=== PATIENT | male | born 1950 | race Caucasian/White ===

== ENCOUNTER 2021-01-21 18:52 | Inpatient (IN) | payer OTHER ==
--- OUTSIDE RECORDS SUMMARY | 2021-01-21 18:54 | XMS REPORT | Continuity of Care Document ---
:1950 Author Organization [facility] t Address [address] [place] [address] Care Team Providers Name Role Phone Unavailable Unavailable Unavailable Problems This patient has no known problems. Allergies, Adverse Reactions, Alerts This patient has no known allergies or adverse reactions. Medications Ordered Filled Start Stop Current Ordering Indication Dosage Frequency Signature Comments Components Source Medication Medication Date Date Medication? Clinician (SIG) Name Name Bactrim DS Bactrim DS 2019- No Kaylee [address] [facility] 9-17 09-20 [place] [facility] Tamsulosin Tamsulosin 2020- No Kaylee [address] [facility] HCl HCl 8-18 02-13 [place] [facility] Flonase Flonase Yes Kaylee [address] [facility] each [facility] nostril [facility] Metformin Metformin Yes Kaylee TAKE [address] HCl HCl Chen TABLET BY [facility] - MOUTH [facility] TWICE A l DAY WITH [facility] Triamterene Triamterene Yes Kaylee [address] [facility] -HCTZ -HCTZ [place] in the [facility] - morning [facility] Zoloft Zoloft Yes Kaylee 2 [facility] [place] [facility] Trelegy Trelegy Yes Kaylee INHALE [address] [facility] Ellipta Ellipta [place] PUFF BY Leandra kes - MOUTH Memoria EVERY DAY l [facility] PredniSONE PredniSONE Yes Kaylee [address] [facility] Sertraline Sertraline Yes Kaylee TAKE [address] [facility] HCl HCl [place] TABLETS [facility] - ONCE DAILY [facility] Simvastatin Simvastatin Yes Kaylee TAKE [address] [facility] [place] TABLET BY [facility] - MOUTH [facility] EVERY DAY l IN THE [facility] Clinics Elida Marrero Yes Kaylee TAKE [address] [facility] Chen TABLET [facility] - ONCE DAILY [facility] Albuterol Albuterol Yes Kaylee [address] [facility] Sulfate HFA Sulfate HFA Chen needed [facility] Pregabalin Pregabalin Yes Kaylee [address] [facility] Chen 1 to 3 [facility] - hours [facility] before l bedtime in [facility] evening Clinics [place] Yes Kaylee [address] [facility] [place] as needed [facility] Lisinopril Lisinopril Yes Kaylee [address] [facility] Simvastatin Simvastatin Yes Kaylee [address] [facility] Chen in the [facility] - evening [facility] Baclofen Baclofen Yes Kaylee not [facility] [place] defined [facility] Procedures This patient has no known procedures. Encounters Start End Encounter Admission Attending Care Care Encounter Source Date/Time Date/Time Type Type Clinicians Facility Department ID 2020-11-14 2020-11-14 Outpatient [facility] [id number] [facility] 2020-11-14 2020-11-14 Outpatient [facility] [id number] [facility] 2020-08-13 2020-08-13 Outpatient [facility] [id number] [facility] 2020-06-11 2020-06-11 Outpatient [facility] [id number] [facility] 2020-04-23 2020-04-23 Outpatient [facility] [id number] [facility] 2020-04-16 2020-04-16 Outpatient [facility] [id number] [facility] 2020-04-15 2020-04-15 Outpatient [facility] [id number] [facility] 2020-01-17 2020-01-17 Out[facility] [id number] [facility] 2020-01-15 2020-01-15 Out[facility] [id number] [facility] 2019-11-30 2019-11-30 Out[facility] [id number] [facility] 2019-11-16 2019-11-16 Outpatient [facility] [id number] [facility] 2019-10-26 2019-10-26 [facility] [id number] [facility] 10:15:00 10:15:00 t Specialty/U Leandra kes - Specialty rology [facility] a /Urology Clinic l Clinic Outpati ent Clinics 2019-10-18 2019-10-18 [facility] [id number] 11:40:00 11:40:00 [facility] Medicine [facility] Outpati ent Clinics 2019-10-10 2019-10-10 [facility] [id number] [facility] 09:00:00 09:00:00 t Specialty/U Leandra kes - Specialty rology Memori a /Urology Clinic l Clinic Outpati ent Clinics 2019-09-27 2019-09-27 [facility] [id number] [facility] [address] 10:00:00 10:00:00 t Specialty/U Leandra kes - Specialty rology Memori a /Urology Clinic l Clinic Outpati ent Clinics 2019-09-26 2019-09-26 [facility] [id number] [facility] 11:15:00 11:15:00 t Specialty/U Leandra kes - Specialty rology Memori a /Urology Clinic l Clinic Outpati ent Clinics 2019-09-06 2019-09-06 [facility] [id number] [address] 14:14:00 14:14:00 t Specialty/U Leandra kes - Specialty rology Memori a /Urology Clinic l Clinic Outpati ent Clinics 2019-08-09 2019-08-09 [facility] [id number] [address] 10:30:00 10:30:00 t Specialty/U Leandra kes - Specialty rology Memori a /Urology Clinic l Clinic Outpati ent Clinics 2019-08-07 2019-08-07 [facility] [id number] [address] 09:45:00 09:45:00 t Specialty/U Leandra kes - Specialty rology Memori a /Urology Clinic l Clinic Outpati ent Clinics 2019-07-31 2019-07-31 [facility] [id number] [address] 09:29:00 09:29:00 t Specialty/U Leandra kes - Specialty rology Memori a /Urology Clinic l Clinic Outpati ent Clinics 2019-07-27 2019-07-27 [facility] [id number] [facility] 13:45:00 13:45:00 t Specialty/U Leandra kes - Specialty rology Memori a /Urology Clinic l Clinic Outpati ent Clinics 2019-07-24 2019-07-24 [facility] [id number] [address] 08:08:00 08:08:00 t [employer] [facility] Medicine Medicine Outpati ent Clinics 2019-07-18 2019-07-18 [facility] [id number] [facility] 10[facility]30:00 10:30:00 t [employer] [facility] Medicine Medicine Outpati ent Clinics 2019-07-04 2019-07-04 [facility] [id number] [facility] 14:52:00 14:52:00 t [employer] [facility] l Medicine Outpati ent Clinics 2019-04-13 2019-04-13 [facility] [id number] [facility] 09:15:00 09:15:[address] [facility] - [address] [facility] Medicine l Medicine Outpati ent Clinics 2019-04-13 2019-04-13 [facility] [id number] 09:00:00 09:00:00 [place] [employer] s - Drive [facility] Medicine l Medicine Outpati ent Clinics 2019-03-29 2019-03-29 [facility] [id number] 15:50:00 15:50:00 [place] [employer] s - Drive [facility] Medicine l Medicine Outpati ent Clinics 2018-12-27 2018-12-27 [facility] [id number] [address] 16:30:00 16:30:00 [place] [employer] [place] - Drive [facility] Medicine l Medicine Outpati ent Clinics 2018-12-19 2018-12-19 [facility] [id number] [facility] 16:47:00 16:47:00 [place] [employer] [place] - Drive [facility] Medicine l Medicine Outpati ent Clinics 2018-12-19 2018-12-19 [facility] [id number] [facility] 16:04:00 16:04:00 [place] [employer] - [employer] [facility] Medicine l Medicine Outpati ent Clinics 2018-10-05 2018-10-05 [facility] [id number] [facility] 16:53:00 16:53:00 [place] [employer] s - Drive [facility] Medicine l Medicine Outpati ent Clinics 2018-10-03 2018-10-03 [facility] [id number] [facility] 14:09:00 14:09:00 [place] [employer] [place] - Drive [facility] Medicine l Medicine Outpati ent Clinics 2018-08-02 2018-08-02 [facility] [id number] [facility] 10:00:00 10:00:00 [place] [employer] [place] - Drive [facility] Medicine l Medicine Outpati ent Clinics 2018-06-14 2018-06-14 [facility] [id number] [facility] 10:36:00 10:36:00 [place] [employer] - [employer] [facility] Medicine Outpati ent Clinics 2018-04-20 2018-04-20 [facility] [id number] 08:30:00 08:30:00 [place] [employer] s - Drive [facility] Medicine Outpati ent Clinics 2018-01-20 2018-01-20 [facility] [id number] 08:30:00 08:30:00 [place] [employer] - [employer] [facility] Medicine Outpati ent Clinics 2018-01-19 2018-01-19 [facility] [id number] 10:01:00 10:01:00 [place] [employer] - [employer] [facility] Medicine Outpati ent Clinics 2017-11-02 2017-11-02 [facility] [id number] 13:45:00 13:45:00 t [employer] [facility] Medicine Outpati ent Clinics 2017-08-10 2017-08-10 [facility] [id number] 14:45:00 14:45:00 t [employer] [facility] Medicine Outpati ent Clinics 2017-05-28 2017-05-28 [facility] [id number] 10:15:00 10:15:00 t [employer] [facility] Medicine Outpati ent Clinics Results This patient has no known results.
[2021-01-21] MEDS ORDERED: METHYLPREDNISOLONE 125 MG INJ ONE (19:21)
[2021-01-21] MEDS ORDERED: IPRATROPIUM BROM 0.5MG/2.5ML ONE (19:22)
[2021-01-21] MEDS ORDERED: ALBUTEROL 2.5 MG/3 ML NEB SOL ONE (19:22)
--- NOTE | 2021-01-21 19:44 | RAD REPORT ---
EXAM DESCRIPTION: RAD - Chest Single View - 01/21/2021 7:36 pm CLINICAL HISTORY: DYSPNEA Chest pain. COMPARISON: Chest Single View dated 01/26/2017; CHEST SINGLE VIEW dated 06/04/2013; CHEST SINGLE VIEW dated 06/03/2013; CHEST SINGLE VIEW dated 05/14/2013 FINDINGS: Portable technique limits examination quality. Mild interstitial opacities are present bilaterally which may represent interstitial pulmonary edema. Increased medial right lung base markings are noted, cannot exclude early pneumonia in this region. The heart is upper limit normal in size.
[2021-01-21 19:54] LABS: Absolute Lymphocytes (CBC) 1.2 K/uL (0.7-4.9); Basophils % 0.2 % (0-1.3); Hematocrit 38.4 % (39.6-49.0); Lymphocytes % 6.1 % (15.3-44.8); MPV 6.9 fL (7.6-11.3); RBC Red Blood Cell Count 4.34 M/uL (4.33-5.43)
[2021-01-21 20:03] LABS: Protime INR 1.21
[2021-01-21 20:18] LABS: ALT/SGPT 27 U/L (12-78); AST/SGOT 14 U/L (15-37); Albumin 3.5 g/dL (3.4-5.0); Alkaline Phosphatase 77 U/L (45-117); BUN Blood Urea Nitrogen 29 mg/dL (7-18); Bicarbonate 26 mmol/L (21-32); Bilirubin Direct < 0.1 mg/dL (0-0.2); Bilirubin Total 0.4 mg/dL (0.2-1.0); Glucose Level 171 mg/dL (74-106); Magnesium 1.9 mg/dL (1.8-2.4); NT PRO-BNP 428 pg/mL (<125); Potassium 3.7 mmol/L (3.5-5.1); Protein, Total 7.6 g/dL (6.4-8.2); Sodium Level 136 mmol/L (136-145); Troponin (Emerg Dept Use Only) < 0.02 ng/mL (0.0-0.045)
[2021-01-21] MEDS ORDERED: Levofloxacin500mg IV 500 MG/100 ML BAG IV ONE (20:24)
--- NOTE | 2021-01-21 20:59 | ER ---
Nurse's Notes [facility] Name: Jose Marcelino Age: 70 yrs Sex: Male : 1950 Arrival Date: 01/21/2021 Time: 18:55 Bed 3 Private MD: Uri Maldonado Diagnosis: COPD/ Chronic obstructive pulmonary disease with (acute) exacerbation;Pneumonia, unspecified organism Presentation: 01/21 19:01 Chief complaint: Patient states: hx of COPD and has had increased sob over there last 2 [facility] days. no home o2 and no fever. Coronavirus screen: Vaccine status: Patient reports receiving the 2nd dose of the covid vaccine. Ebola Screen: No symptoms or risks identified at this time. Initial Sepsis Screen: Does the patient meet any 2 criteria? No. Patient's initial sepsis screen is negative. Does the patient have a suspected source of infection? No. Patient's initial sepsis screen is negative. Risk Assessment: Do you want to hurt yourself or someone else? Patient reports no desire to harm self or others. Onset of symptoms was January 19, 2021. 19:01 Method Of Arrival: Ambulatory [facility] 19:01 Acuity: PHUC 2 [facility] Triage Assessment: 19:05 General: Appears uncomfortable, Behavior is cooperative. Pain: Denies pain. [facility] Respiratory: Reports shortness of breath cough that is non-productive, air hunger since 2 days labored breathing since 2-4 days Airway is patent Trachea midline Respiratory effort is labored, pursed lip, Respiratory pattern is regular, Onset: The symptoms/episode began/occurred gradually, the patient has moderate shortness of breath. Historical: - Allergies: 19:04 No Known Allergies; 6 - PMHx: 19:04 Chronic obstructive lung disease; Diabetes mellitus; Hypertensive disorder; [facility] - Immunization history:: Client reports receiving the 2nd dose of the Covid vaccine, Flu vaccine is up to date. - Social history:: Smoking status: Patient reports the use of cigarette tobacco products. Screenin:34 Abuse screen: Denies threats or abuse. Nutritional screening: No deficits noted. vg1 Tuberculosis screening: No symptoms or risk factors identified. Fall Risk No fall in past 12 months (0 pts). No secondary diagnosis (0 pts). IV access (20 points). Ambulatory Aid- None/Bed Rest/Nurse Assist (0 pts). Gait- Normal/Bed Rest/Wheelchair (0 pts) Mental Status- Oriented to own ability (0 pts). Total Campa Fall Scale indicates No Risk (0-24 pts). Assessment: 19:33 General: Appears in no apparent distress. uncomfortable, Behavior is calm, cooperative. vg1 Pain: Denies pain. Neuro: Level of Consciousness is awake, alert, obeys commands, Oriented to person, place, time, situation. Cardiovascular: Patient's skin is warm and dry. Respiratory: Airway is patent Respiratory effort is even, labored, Respiratory pattern is regular, symmetrical, Breath sounds with wheezes in left upper lobe and left posterior upper lobe. GI: Reports diarrhea, since yesterday, 01/20/21. : No signs and/or symptoms were reported regarding the genitourinary system. EENT: No signs and/or symptoms were reported regarding the EENT system. Derm: Skin is healthy with good turgor, Skin is pink, warm \T\ dry. Musculoskeletal: Circulation, motion, and sensation intact. 20:47 Reassessment: Patient appears in no apparent distress at this time. No changes from tw5 previously documented assessment. Patient and/or family updated on plan of care and expected duration. Pain level reassessed. Cardiovascular: Rhythm is sinus tachycardia. Vital Signs: 19:01 BP 143 / 55; Pulse 115; Resp 24; Temp 97.5(T); Pulse Ox 90% ; Weight 76.2 kg; Height 5 6 ft. 8 in. (172.72 cm); Pain 2/10; 19:34 BP 120 / 60; Pulse 115; Resp 17; Pulse Ox 100% on Nebulizer Mask; vg1 20:47 BP 141 / 59; Pulse 102; Resp 28; Pulse Ox 90% on R/A; Pain 1/10; tw5 23:15 BP 127 / 60; Pulse 95; Resp 20 S; Pulse Ox 93% on R/A; as6 19:01 Body Mass Index 25.54 (76.20 kg, 172.72 cm) 6 ED Course: 18:55 Patient arrived in ED. am2 18:55 Uri Maldonado DO is Private Physician. am2 19:04 Triage completed. 6 19:06 Arm band placed on right wrist. 6 19:12 Muna Pires is Primary Nurse. tw5 19:16 Emeka Samson MD is Attending Physician. rodney 19:23 [facility]cloud [facility] jr8 19:29 Inserted saline lock: 20 gauge in right wrist, using aseptic technique. Blood collected.tp1 19:34 Patient has correct armband on for positive identification. Placed in gown. Bed in low vg1 position. Call light in reach. Side rails up X 1. Adult w/ patient. 19:34 No provider procedures requiring assistance completed. vg1 19:36 XRAY Chest (1 view) In Process Unspecified. EDMS 20:49 Second set of blood cultures drawn by me. tw5 20:58 Rafael Davey is Hospitalizing Provider. jr8 Administered Medications: 19:25 Drug: Albuterol - atroVENT (ipratropium) (3:1) (2.5 mg - 0.5 mg) 3 ml Route: Nebulizer; vg1 19:27 Drug: SOLU-Medrol (methylPrednisoLONE) 125 mg Route: IVP; Site: right wrist; vg1 20:27 Drug: LevaQUIN (levofloxacin) 500 mg Volume: 100 ml; Route: IVPB; Infused Over: 60 as6 mins; Site: right wrist; 21:29 Follow up: Response: No adverse reaction; IV Status: Completed infusion; IV Intake: as6 100ml Intake: 21:29 IV: 100ml; Total: 100ml. as6 Outcome: 20:59 Decision to Hospitalize by Provider. jr8 01/22 00:08 Patient left the ED. mw2 Signatures: Dispatcher [employer] EDND Emeka Samson MD MD cha Roszak, Josh, PA PA jr8 Alessia Clark am2 Svitlana Baptiste mw2 Rafaela Islas RN RN vg1 Muna Pires tw5 Caden Nieto RN RN as6 Barbra Glaser RN RN 6 Muna Nicholas tp1 Corrections: (The following items were deleted from the chart) 01/21 19:43 19:33 Respiratory: Airway is patent Respiratory effort is even, labored, Respiratory vg1 pattern is regular, symmetrical, vg1
--- NOTE | 2021-01-21 20:59 | EDPHYS ---
Physician Documentation [facility] Name: Jose Marcelino Age: 70 yrs Sex: Male : 1950 Arrival Date: 01/21/2021 Time: 18:55 Bed 3 Private MD: [facility] ED Physician Emeka Samson HPI: 01/21 20:40 This 70 yrs old Male presents to ER via Ambulatory with complaints of Breathing jr8 Difficulty. 20:40 This is a 70-year-old female patient that presented to the emergency room with jr8 increased difficulty breathing. Patient has a history of chronic obstructive lung disease. Patient stated that since he has had increased difficulty with breathing but over the last 3 to 4 days had markedly become worse. 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 Patient normally not on home oxygen. Today patient came in 90% room air with increased work of breathing.. Historical: - Allergies: 19:04 No Known Allergies; [facility] - PMHx: 19:04 Chronic obstructive lung disease; Diabetes mellitus; Hypertensive disorder; [facility] - Immunization history:: Client reports receiving the 2nd dose of the Covid vaccine, Flu vaccine is up to date. - Social history:: Smoking status: Patient reports the use of cigarette tobacco products. ROS: 20:40 Eyes: Negative for injury, pain, redness, and discharge, ENT: Negative for injury, jr8 pain, and discharge, Neck: Negative for injury, pain, and swelling, Cardiovascular: Negative for chest pain, palpitations, and edema, Abdomen/GI: Negative for abdominal pain, nausea, vomiting, diarrhea, and constipation, Back: Negative for injury and pain, MS/Extremity: Negative for injury and deformity, Skin: Negative for injury, rash, and discoloration, Neuro: Negative for headache, weakness, numbness, tingling, and seizure. 20:40 Respiratory: Positive for cough, dyspnea on exertion, shortness of breath, wheezing. Exam: 20:40 Constitutional: This is a well developed, well nourished patient who is awake, alert, jr8 and in no acute distress. Cardiovascular: Regular rate and rhythm with a normal S1 and S2. No gallops, murmurs, or rubs. Normal PMI, no JVD. No pulse deficits. Abdomen/GI: Soft, non-tender, with normal bowel sounds. No distension or tympany. No guarding or rebound. No evidence of tenderness throughout. Back: No spinal tenderness. No costovertebral tenderness. Full range of motion. Skin: Warm, dry with normal turgor. Normal color with no rashes, no lesions, and no evidence of cellulitis. MS/ Extremity: Pulses equal, no cyanosis. Neurovascular intact. Full, normal range of motion. Neuro: Awake and alert, GCS 15, oriented to person, place, time, and situation. Cranial nerves II-XII grossly intact. Motor strength 5/5 in all extremities. Sensory grossly intact. Cerebellar exam normal. Normal gait. 20:40 Respiratory: the patient does not display signs of respiratory distress, Respirations: tachypnea, that is mild, Breath sounds: wheezing: expiratory that is moderate, is heard diffusely. Vital Signs: 19:01 BP 143 / 55; Pulse 115; Resp 24; Temp 97.5(T); Pulse Ox 90% ; Weight 76.2 kg; Height 5 6 ft. 8 in. (172.72 cm); Pain 2/10; 19:34 BP 120 / 60; Pulse 115; Resp 17; Pulse Ox 100% on Nebulizer Mask; vg1 20:47 BP 141 / 59; Pulse 102; Resp 28; Pulse Ox 90% on R/A; Pain 1/10; tw5 23:15 BP 127 / 60; Pulse 95; Resp 20 S; Pulse Ox 93% on R/A; as6 19:01 Body Mass Index 25.54 (76.20 kg, 172.72 cm) [facility] MDM: 19:17 Patient medically screened. [facility] 20:59 Data reviewed: vital signs, nurses notes, lab test result(s), radiologic studies, plain jr8 films. Data interpreted: Pulse oximetry: on room air is 90 %. Interpretation: borderline. Counseling: I had a detailed discussion with the patient and/or guardian regarding: the historical points, exam findings, and any diagnostic results supporting the discharge/admit diagnosis, lab results, radiology results, the need for further work-up and treatment in the hospital. 01/21 19:23 Order name: Basic Metabolic Panel; Complete Time: 20:20 jr8 01/21 19:23 Order name: CBC with Diff jr8 01/21 19:23 Order name: LFT's; Complete Time: 20:20 01/21 19:23 Order name: Magnesium; Complete Time: 20:20 01/21 19:23 Order name: NT PRO-BNP; Complete Time: 20:20 01/21 19:23 Order name: PT-INR; Complete Time: 20:20 01/21 19:23 Order name: Troponin (emerg Dept Use Only); Complete Time: 20:20 01/21 19:23 Order name: XRAY Chest (1 view); Complete Time: 20:20 01/21 19:23 Order name: EKG; Complete Time: 19:24 01/21 20:21 Order name: Blood Culture Adult (2) 01/21 20:59 Order name: COVID-19 SARS RT PCR (Document "Date of Onset" if Symptomatic); Complete Time: 22:18 01/21 19:23 Order name: Cardiac monitoring; Complete Time: 19:53 01/21 19:23 Order name: EKG - Nurse/Tech; Complete Time: 19:53 01/21 19:23 Order name: IV Saline Lock; Complete Time: 19:29 01/21 19:23 Order name: Labs collected and sent; Complete Time: 19:29 01/21 19:23 Order name: O2 Per Protocol; Complete Time: 19:32 01/21 19:23 Order name: O2 Sat Monitoring; Complete Time: 19:32 01/21 21:32 Order name: CONS Physician Consult EDMS Administered Medications: 19:25 Drug: Albuterol - atroVENT (ipratropium) (3:1) (2.5 mg - 0.5 mg) 3 ml Route: Nebulizer; vg1 19:27 Drug: SOLU-Medrol (methylPrednisoLONE) 125 mg Route: IVP; Site: right wrist; vg1 20:27 Drug: LevaQUIN (levofloxacin) 500 mg Volume: 100 ml; Route: IVPB; Infused Over: 60 as6 mins; Site: right wrist; 21:29 Follow up: Response: No adverse reaction; IV Status: Completed infusion; IV Intake: as6 100ml Disposition: 01/22 07:00 Co-signature as Attending Physician, Emeka CABRERA I agree with the assessment and rodney plan of care. Disposition Summary: 01/21/21 20:59 Hospitalization Ordered Hospitalization Status: Inpatient Admission jr8 Provider: Rafael Davey Location: Telemetry/MedSur (Inpatient) jr8 Condition: Stable jr8 Problem: new jr8 Symptoms: have improved jr8 Bed/Room Type: Standard 8 Room Assignment: 430(01/21/21 23:12) cg Diagnosis - COPD/ Chronic obstructive pulmonary disease with (acute) exacerbation jr8 - Pneumonia, unspecified organism jr8 Forms: - Medication Reconciliation Form jr8 - SBAR form jr8 Signatures: Dispatcher [employer] EDMS Emeka Samson MD MD cha Roszak, Josh, PA PA jr8 Hanna Islas RN RN cg Rafaela Islas RN RN vg1 Caden Nieto RN RN as6 Barbra Glaser RN RN jh6 Corrections: (The following items were deleted from the chart) 01/21 23:12 20:59 jr8 cg
--- NOTE | 2021-01-21 22:07 | P.HP ---
Certification for Inpatient Patient admitted to: Inpatient With expected LOS: >2 Midnights Patient will require the following post-hospital care: None Practitioner: I am a practitioner with admitting privileges, knowledge of patient current condition, hospital course, and medical plan of care. Services: Services provided to patient in accordance with Admission requirements found in Title 42 Section 412.3 of the Code of Federal Regulations <Mulugeta Horne - Last Filed: 01/21/21 22:17> Patient History Date of Service: 01/21/21 Reason for admission: sob History of Present Illness: Mr. Marcelino is a 70 yo M with COPD, DM, HTN, HLD, depression who presents with worsening cough, SOB, and DONNELLY. He says his symptoms started around Thanksgiving and have continued to worsen, especially over the past 4 days. He says to day he was too weak to get out of bed. He reports anorexia and diarrhea, denies nausea, vomiting, and fever. He has had mild relief of his symptoms with his inhalers. WBC 19.1 BUN 29 GFR 66 Glu 171 BNP 428 CXR FINDINGS: Portable technique limits examination quality. Mild interstitial opacities are present bilaterally which may represent interstitial pulmonary edema. Increased medial right lung base markings are noted, cannot exclude early pneumonia in this region. The heart is upper limit normal in size. - Past Medical/Surgical History Diabetic: No -: DM -: Asthma -: Arthritis -: COPD -: HTN -: HLD -: depresison -: Cyst removal from right side of neck - Family History Mother -: Diabetes Sister -: Diabetes - Social History Smoking Status: Current every day smoker Alcohol use: No CD- Drugs: No Caffeine use: Yes Place of Residence: Home <Jen Horneelma Schulz - Last Filed: 01/21/21 22:17> Date of Service: 01/21/21 <Kiana Devine - Last Filed: 01/23/21 09:08> Allergies limestone Allergy (Uncoded 01/26/17 16:19) Itching/Hives/Rash Home Medications: Sertraline [Zoloft*] 100 mg PO BID 05/13/13 Simvastatin [Zocor*] 40 mg PO BEDTIME 05/13/13 Hydrocodone/Acetaminophen [[place] 5-325 Tablet] 1 each PO BIDP PRN 01/26/17 Triamterene/Hydrochlorothiazid [Triamterene-Hctz 37.5-25 mg Cp] 1 each PO DAILY 01/26/17 predniSONE [Prednisone*] 40 mg PO BIDP PRN 01/26/17 Albuterol Inhaler [Ventolin Inhaler*] 1 puff IN BID 01/22/21 Fluticasone/Umeclidin/Vilanter [Trelegy Ellipta 100-62.5-25] 1 puff IN DAILY 1 03/25/20 Metformin HCl 1 tab PO DAILY 01/22/21 Tamsulosin [Flomax*] 1 cap PO BEDTIME 01/22/21 Review of Systems 10-point ROS is otherwise unremarkable General: Weakness, Malaise Eyes: Unremarkable ENT: Unremarkable Respiratory: Cough, Shortness of Breath, SOB with Excertion, As per HPI Cardiovascular: Unremarkable Gastrointestinal: Diarrhea Genitourinary: Unremarkable Musculoskeletal: Unremarkable Integumentary: Unremarkable Neurological: Unremarkable Lymphatics: Unremarkable <Mulugeta Horne S - Last Filed: 01/21/21 22:17> Physical Examination - Physical Exam General: Alert, In no apparent distress HEENT: Atraumatic, PERRLA, Mucous membr. moist/pink, EOMI, Sclerae nonicteric Neck: Supple, 2+ carotid pulse no bruit, No LAD, Without JVD or thyroid abnormality Respiratory: Diminished Cardiovascular: Normal S1 S2, Irregular heart rate/rhythm Gastrointestinal: Normal bowel sounds, No tenderness Musculoskeletal: No tenderness Integumentary: No rashes Neurological: Normal speech, Normal strength at 5/5 x4 extr, Normal tone, Normal affect Lymphatics: No axilla or inguinal lymphadenopathy - Studies Laboratory Data (last 24 hrs) 01/21/21 19:26: PT 13.9 H, INR 1.21 01/21/21 19:26: WBC 19.10 H, Hgb 12.8 L, Hct 38.4 L, Plt Count 368 01/21/21 19:26: Sodium 136, Potassium 3.7, BUN 29 H, Creatinine 1.10, Glucose 171 H, Magnesium 1.9, Total Bilirubin 0.4, AST 14 L, ALT 27, Alkaline Phosphatase 77 <Mulugeta Horne S - Last Filed: 01/21/21 22:17> Assessment and Plan - Problems (Diagnosis) (1) Atrial flutter Current Visit: Yes Status: Acute Qualifiers: Atrial flutter type: unspecified Qualified Code(s): I48.92 - Unspecified atrial flutter (2) Pneumonia Current Visit: Yes Status: Acute Qualifiers: Pneumonia type: due to unspecified organism Laterality: unspecified laterality Lung location: unspecified part of lung Qualified Code(s): J18.9 - Pneumonia, unspecified organism (3) T2DM (type 2 diabetes mellitus) Current Visit: Yes Status: Chronic Qualifiers: Diabetes mellitus filler leaf cutter long insulin use: unspecified filler leaf cutter long insulin use status Diabetes mellitus complication status: with kidney complications Diabetes mellitus complication detail: with chronic kidney disease Chronic kidney disease stage: stage 2 (mild) Qualified Code(s): E11.22 - Type 2 diabetes mellitus with diabetic chronic kidney disease; N18.2 - Chronic kidney disease, stage 2 (mild) (4) HTN (hypertension) Current Visit: Yes Status: Chronic Qualifiers: Hypertension type: primary hypertension Qualified Code(s): I10 - Essential (primary) hypertension (5) HLD (hyperlipidemia) Current Visit: Yes Status: Chronic (6) COPD exacerbation Current Visit: No Status: Acute - Plan pulm consulted continue IV steroids, IV antibiotics, breathing treatments and O2 as needed continue antitussives sliding scale insulin and accuchecks cardiology consulted continue anticoagulation, IV lopressor PRN repeat EKG nicotine patch daily reconcile and continue home medications Discharge Plan: Home Plan to discharge in: 72 Hours - Advance Directives Does patient have a Living Will: No Does patient have a Durable POA for Healthcare: No - Code Status/Comfort Care Code Status Assessed: Yes (full code ) Critical Care: No Time Spent Managing Pts Care (In Minutes): 70 <Mulugeta Horne - Last Filed: 01/21/21 22:17> - Problems (Diagnosis) (1) COPD exacerbation Current Visit: No Status: Acute (2) Atrial flutter Current Visit: Yes Status: Acute Qualifiers: Atrial flutter type: unspecified Qualified Code(s): I48.92 - Unspecified atrial flutter (3) Pneumonia Current Visit: Yes Status: Acute Qualifiers: Pneumonia type: due to unspecified organism Laterality: unspecified laterality Lung location: unspecified part of lung Qualified Code(s): J18.9 - Pneumonia, unspecified organism (4) HLD (hyperlipidemia) Current Visit: Yes Status: Chronic (5) HTN (hypertension) Current Visit: Yes Status: Chronic Qualifiers: Hypertension type: primary hypertension Qualified Code(s): I10 - Essential (primary) hypertension (6) T2DM (type 2 diabetes mellitus) Current Visit: Yes Status: Chronic Qualifiers: Diabetes mellitus fpc insulin use: unspecified filler leaf cutter long insulin use status Diabetes mellitus complication status: with kidney complications Diabetes mellitus complication detail: with chronic kidney disease Chronic kidney disease stage: stage 2 (mild) Qualified Code(s): E11.22 - Type 2 diabetes mellitus with diabetic chronic kidney disease; N18.2 - Chronic kidney disease, stage 2 (mild) <Kiana Devine - Last Filed: 01/23/21 09:08> Date of Service: 01/21/21 Subjective Agree with the HPI as mentioned above Review of Systems 10-point ROS is otherwise unremarkable Physical Examination - Vital Signs Reviewed - Physical Exam General: Alert, In no apparent distress, Oriented x3 HEENT: Atraumatic, PERRLA, EOMI Neck: Supple, JVD not distended Respiratory: Diminished, Expiratory wheezes Cardiovascular: Regular rate/rhythm, Normal S1 S2, No murmurs Gastrointestinal: Normal bowel sounds, Soft and benign, Non-distended, No tenderness Musculoskeletal: No clubbing, No swelling, No tenderness Neurological: Normal speech, Normal tone, Normal affect Lymphatics: No axilla or inguinal lymphadenopathy - Studies Medications List Reviewed: Yes Assessment & Plan - Problems (Diagnosis) (1) COPD exacerbation Current Visit: No Status: Acute (2) Atrial flutter Current Visit: Yes Status: Acute Qualifiers: Atrial flutter type: unspecified Qualified Code(s): I48.92 - Unspecified atrial flutter (3) Pneumonia Current Visit: Yes Status: Acute Qualifiers: Pneumonia type: due to unspecified organism Laterality: unspecified laterality Lung location: unspecified part of lung Qualified Code(s): J18.9 - Pneumonia, unspecified organism (4) HLD (hyperlipidemia) Current Visit: Yes Status: Chronic (5) HTN (hypertension) Current Visit: Yes Status: Chronic Qualifiers: Hypertension type: primary hypertension Qualified Code(s): I10 - Essential (primary) hypertension (6) T2DM (type 2 diabetes mellitus) Current Visit: Yes Status: Chronic Qualifiers: Diabetes mellitus filler leaf cutter long insulin use: unspecified filler leaf cutter long insulin use status Diabetes mellitus complication status: with kidney complications Diabetes mellitus complication detail: with chronic kidney disease Chronic kidney disease stage: stage 2 (mild) Qualified Code(s): E11.22 - Type 2 diabetes mellitus with diabetic chronic kidney disease; N18.2 - Chronic kidney disease, stage 2 (mild) - Plan Continue with plan of care as mentioned below: 1. Continue with albuterol and Atrovent nebs 2. Continue with IV steroids 3. Outpatient pulmonary function testing 4. Pulmonary consultation 5. Room air O2 sats 6. Repeat chest x-ray in the morning 7. Echocardiogram 8. GI and DVT prophylaxis Discharge Plan: Home Plan to discharge in: Greater than 2 days - Advance Directives Does patient have a Living Will: No Does patient have a Durable POA for Healthcare: No - Code Status/Comfort Care Code Status Assessed: Yes Code Status: Full Code Critical Care: No Time Spent Managing PTS Care (In Minutes): 35 <Kiana Devine - Last Filed: 01/23/21 09:08>
[2021-01-22 00:12] LABS: Blood Morphology Comment NOT SEEN (NOT SEEN); Platelet Estimate ADEQ
[2021-01-22 00:16] VITALS: BMI 25.9
[2021-01-22] MEDS ORDERED: ACETAMINOPHEN 500 MG TAB PO PRN (00:17)
[2021-01-22] MEDS ORDERED: IPRATROPIUM BROM 0.5MG/2.5ML NEB PRN (00:17)
[2021-01-22] MEDS ORDERED: METOPROLOL TARTRATE 5 MG/5 ML INJ IV PRN (00:17)
[2021-01-22] MEDS ORDERED: BENZONATATE 100 MG CAP PO PRN (00:17)
[2021-01-22] MEDS ORDERED: ONDANSETRON 4 MG/2 ML VIAL IV PRN (00:17)
[2021-01-22] MEDS ORDERED: ALBUTEROL 2.5 MG/3 ML NEB SOL NEB PRN (00:20)
[2021-01-22] MEDS: APIXABAN 5 MG TABLET PO SCH ×3 (00:54→21:11)
[2021-01-22] MEDS: METHYLPREDNISOLONE 40 MG INJ IV SCH ×2 (04:00→08:19)
[2021-01-22 04:09] LABS: Absolute Lymphocytes (CBC) 0.7 K/uL (0.7-4.9); Basophils % 0.3 % (0-1.3); Hematocrit 35.2 % (39.6-49.0); Lymphocytes % 4.8 % (15.3-44.8); MPV 6.7 fL (7.6-11.3); RBC Red Blood Cell Count 3.92 M/uL (4.33-5.43)
[2021-01-22 04:42] LABS: Bilirubin Total 0.2 mg/dL (0.2-1.0); Magnesium 2.2 mg/dL (1.8-2.4); Phosphorus 2.3 mg/dL (2.5-4.9); Potassium 4.8 mmol/L (3.5-5.1); Thyroid Stimulating Hormone 0.224 uIU/mL (0.360-3.740)
[2021-01-22] MEDS: INSULIN -REGULAR HUMAN 50 UNIT/0.5 ML ML SQ SCH ×4 (07:30→21:00)
--- NOTE | 2021-01-22 07:49 | EKG ---
Test Date: 2021-01-21 Test Time: 19:45:59 [employer] Consultant: ISELA MEASUREMENT RESULTS: Intervals: Rate: 107 MI: QRSD: 132 QT: 350 QTc: 467 [place]: P: 81 MI: QRS: 78 T: 68 INTERPRETIVE STATEMENTS: Atrial flutter with 3:1 AV conduction Right bundle branch block Abnormal ECG Compared to ECG 01/26/2017 08:15:41 Right bundle-branch block now present Sinus rhythm no longer present T-wave abnormality no longer present Possible ischemia no longer present Electronically Signed On 01-22-21 07:48:04 SPORTS ANALYST by Parvez Regalado
[2021-01-22] MEDS: POTASS/SODIUM PHOSPHATE 1 PKT POWD.PACK PO SCH ×3 (08:20→10:55)
[2021-01-22] MEDS: NICOTINE 7 MG/PAT TD SCH (09:20)
[2021-01-22] MEDS ORDERED: FUROSEMIDE 20 MG/ 2ML VIAL IV ONE (12:06)
--- NOTE | 2021-01-22 12:07 | P.CNS ---
Date of Consult: 01/22/21 Reason for Consult: COPD exacerbation Chief Complaint: sob History of Present Illness: Patient is 70 years of age admitted with worsening cough dyspnea on exertion for the past 4 days recently advised him to increase prednisone which he did compliant with his bronchodilators he still complaining of dyspnea on mild exertion Allergies [place] Allergy (Uncoded 01/26/17 16:19) Itching/Hives/Rash Home Medications: Sertraline [Zoloft*] 100 mg PO BID 05/13/13 Simvastatin [Zocor*] 40 mg PO BEDTIME 05/13/13 Hydrocodone/Acetaminophen [[place] 5-325 Tablet] 1 each PO BIDP PRN 01/26/17 Triamterene/Hydrochlorothiazid [Triamterene-Hctz 37.5-25 mg Cp] 1 each PO DAILY 01/26/17 predniSONE [Prednisone*] 40 mg PO BIDP PRN 01/26/17 Albuterol Inhaler [Ventolin Inhaler*] 1 puff IN BID 01/22/21 Fluticasone/Umeclidin/Vilanter [Trelegy Ellipta 100-62.5-25] 1 puff IN DAILY 01/22/21 Metformin HCl 1 tab PO DAILY 01/22/21 Tamsulosin [Flomax*] 1 cap PO BEDTIME 01/22/21 - Past Medical/Surgical History Diabetic: No -: DM -: Asthma -: Arthritis -: COPD -: HTN -: HLD -: depresison -: Cyst removal from right side of neck - Family History Mother Medical History: Heart disease, Diabetes Sister Medical History: Diabetes, Cancer Father Medical History: Cancer - Social History Smoking Status: Current every day smoker Alcohol use: No CD- Drugs: No Caffeine use: Yes Place of Residence: Home Review of Systems 10-point ROS is otherwise unremarkable General: Weakness Respiratory: Shortness of Breath Physical Examination Temp Pulse Resp BP Pulse Ox 97.5 F 72 20 132/59 L 96 01/22/21 08:00 01/22/21 08:00 01/22/21 08:00 01/22/21 08:00 01/22/21 08:00 General: Alert, Oriented x3 Neck: Supple Respiratory: Clear to auscultation bilaterally, Diminished Cardiovascular: No edema, Regular rate/rhythm Gastrointestinal: Normal bowel sounds, Soft and benign Laboratory Data (last 24 hrs) 01/21/21 19:26: PT 13.9 H, INR 1.21 01/21/21 19:26: WBC 19.10 H, Hgb 12.8 L, Hct 38.4 L, Plt Count 368 01/21/21 19:26: Sodium 136, Potassium 3.7, BUN 29 H, Creatinine 1.10, Glucose 171 H, Magnesium 1.9, Total Bilirubin 0.4, AST 14 L, ALT 27, Alkaline Phosphatase 77 - Problems (1) COPD exacerbation Current Visit: No Status: Acute Plan: Patient is 70 years of age history of COPD admitted with an exacerbation he is compliant with his therapy at home currently complaining of dyspnea on mild exertion white count is mildly elevated is declining chest x-ray is clear no clinical evidence of pneumonia room air saturation is normal change to p.o. prednisone nebulizer scheduled possible discharge tomorrow 1 dose of Lasix stable underlying diastolic dysfunction
[2021-01-22] MEDS: predniSONE 20 MG TAB PO SCH ×2 (13:16→21:11)
[2021-01-22] MEDS: ALBUTEROL 2.5 MG/3 ML NEB SOL NEB SCH ×2 (13:22→20:00)
[2021-01-22] MEDS: IPRATROPIUM BROM 0.5MG/2.5ML NEB SCH ×2 (13:22→20:00)
--- NOTE | 2021-01-22 13:36 | ECHO ---
HEIGHT: 5 ft 8 in WEIGHT: 171 lb 0 oz DATE OF STUDY: 01/22/[address]: Parvez Regalado MD 2-DIMENSIONAL: YES M.MODE: YES DOPPLER: YES COLOR FLOW: YES TDS: NO PORTABLE: NO DEFINITY: NO BUBBLE STUDY: NO DIAGNOSIS: ATRIAL FIBRILLATION CARDIAC HISTORY: CATHERIZATION: NO SURGERY: NO PROSTHETIC VALVE: NO PACEMAKER: NO MEASUREMENTS (cm) DIASTOLIC (NORMALS) SYSTOLIC (NORMALS) IVSd 1.0 (0.6-1.2) LA Diam 2.4 (1.9-4.0) LVEF 68% LVIDd 4.2 (3.5-5.7) LVIDs 2.6 (2.0-3.5) %FS 37% LVPWd 1.1 (0.6-1.2) Ao Diam 2.8 (2.0-3.7) 2 DIMENSIONAL ASSESSMENT: RIGHT ATRIUM: NORMAL LEFT ATRIUM: NORMAL RIGHT VENTRICLE: NORMAL LEFT VENTRICLE: NORMAL TRICUSPID VALVE: NORMAL MITRAL VALVE: NORMAL PULMONIC VALVE: NORMAL AORTIC VALVE: NORMAL PERICARDIAL EFFUSION: NONE AORTIC ROOT: NORMAL LEFT VENTRICULAR WALL MOTION: NORMAL DOPPLER/COLOR FLOW: NORMAL COMMENTS: NORMAL 2D ECHOCARDIOGRAM WITH DOPPLER. MODERATOR BAND IN RIGHT VENTRICLE. NO EFFUSION. TECHNOLOGIST: Lokesh SRINIVASAN
[2021-01-22] MEDS ORDERED: Levofloxacin 750mg IV 750 MG/150 ML BAG IV SCH (20:00)
[2021-01-22] MEDS ORDERED: HYDROCODONE/APAP 5/325 MG TAB PO PRN (21:27)
[2021-01-23] MEDS: NICOTINE 7 MG/PAT TD SCH ×2 (00:27→09:34)
--- NOTE | 2021-01-23 00:30 | P.PN ---
Subjective Date of Service: 01/22/21 Subjective: No new changes, No C/O voiced, Improving Patient still getting tachypneic on ambulation. Echocardiogram is pending at this time. Patient denies any other complaints. Continue with steroids and neb treatments. Review of Systems 10-point ROS is otherwise unremarkable Physical Examination - Vital Signs Temperature: 97.1 F Blood Pressure: 153/61 Pulse: 89 Respirations: 19 Pulse Ox (%): 92 - Physical Exam General: Alert, In no apparent distress, Oriented x3 HEENT: Atraumatic, PERRLA, EOMI Neck: Supple, JVD not distended Respiratory: Diminished, Expiratory wheezes Cardiovascular: Regular rate/rhythm, Normal S1 S2, No murmurs Gastrointestinal: Normal bowel sounds, Soft and benign, Non-distended, No tenderness Musculoskeletal: No clubbing, No swelling, No tenderness Neurological: Normal speech, Normal tone, Normal affect Lymphatics: No axilla or inguinal lymphadenopathy - Studies Medications List Reviewed: Yes Assessment & Plan - Problems (Diagnosis) (1) COPD exacerbation Current Visit: No Status: Acute (2) Atrial flutter Current Visit: Yes Status: Acute Qualifiers: Atrial flutter type: unspecified Qualified Code(s): I48.92 - Unspecified atrial flutter (3) Pneumonia Current Visit: Yes Status: Acute Qualifiers: Pneumonia type: due to unspecified organism Laterality: unspecified laterality Lung location: unspecified part of lung Qualified Code(s): J18.9 - Pneumonia, unspecified organism (4) HLD (hyperlipidemia) Current Visit: Yes Status: Chronic (5) HTN (hypertension) Current Visit: Yes Status: Chronic Qualifiers: Hypertension type: primary hypertension Qualified Code(s): I10 - Essential (primary) hypertension (6) T2DM (type 2 diabetes mellitus) Current Visit: Yes Status: Chronic Qualifiers: Diabetes mellitus jail insulin use: unspecified terminal worker insulin use status Diabetes mellitus complication status: with kidney complications Diabetes mellitus complication detail: with chronic kidney disease Chronic kidney disease stage: stage 2 (mild) Qualified Code(s): E11.22 - Type 2 diabetes mellitus with diabetic chronic kidney disease; N18.2 - Chronic kidney disease, stage 2 (mild) - Plan Plan: 1. Continue with albuterol and Atrovent nebs 2. Continue with IV steroids 3. Outpatient pulmonary function testing 4. Pulmonary consultation 5. Room air O2 sats 6. Repeat chest x-ray in the morning 7. Echocardiogram 8. GI and DVT prophylaxis Discharge Plan: Home Plan to discharge in: Greater than 2 days - Advance Directives Does patient have a Living Will: No Does patient have a Durable POA for Healthcare: No - Code Status/Comfort Care Code Status Assessed: Yes Code Status: Full Code Critical Care: No Time Spent Managing PTS Care (In Minutes): 35
[2021-01-23] MEDS: IPRATROPIUM BROM 0.5MG/2.5ML NEB SCH ×2 (01:40→08:00)
[2021-01-23] MEDS: ALBUTEROL 2.5 MG/3 ML NEB SOL NEB SCH ×2 (01:40→08:00)
[2021-01-23 04:16] LABS: Absolute Lymphocytes (CBC) 1.3 K/uL (0.7-4.9); Basophils % 0.2 % (0-1.3); Hematocrit 34.9 % (39.6-49.0); Lymphocytes % 7.6 % (15.3-44.8)
[2021-01-23 04:41] LABS: Albumin 2.8 g/dL (3.4-5.0); Bilirubin Total 0.1 mg/dL (0.2-1.0); Protein, Total 6.8 g/dL (6.4-8.2)
[2021-01-23] MEDS: INSULIN -REGULAR HUMAN 50 UNIT/0.5 ML ML SQ SCH ×2 (07:30→11:30)
[2021-01-23] MEDS ORDERED: METFORMIN HCL 500 MG TAB PO SCH (08:00)
[2021-01-23] MEDS ORDERED: HOME MED 1 EA UNK (Fluticasone/Umeclidin/Vilanter [Trelegy Ellipta 100-62.5-25] Blst.W.Dev IH SCH (09:00)
[2021-01-23] MEDS ORDERED: MAXZIDE (HCTZ 25/TRIAMTERENE 37.5MG) TAB PO SCH (09:00)
[2021-01-23] MEDS ORDERED: levoFLOXacin 500 MG TAB PO SCH (09:00)
[2021-01-23] MEDS ORDERED: SERTRALINE HCL 50 MG TAB PO SCH (09:00)
[2021-01-23 09:06] VITALS: TEMP 97.1
[2021-01-23] MEDS: APIXABAN 5 MG TABLET PO SCH (09:34)
[2021-01-23] MEDS: predniSONE 20 MG TAB PO SCH (09:34)
--- NOTE | 2021-01-23 11:13 | P.DS ---
Admission Date: 01/21/21 Discharge Date: 01/23/21 Disposition: ROUTINE DISCHARGE Discharge Condition: FAIR Reason for Admission: sob Brief History of Present Illness: History of Present Illness: Mr. Marcelino is a 70 yo M with COPD, DM, HTN, HLD, depression who presents with worsening cough, SOB, and DONNELLY. He says his symptoms started around Thanksgiving and have continued to worsen, especially over the past 4 days. He says to day he was too weak to get out of bed. He reports anorexia and diarrhea, denies nausea, vomiting, and fever. He has had mild relief of his symptoms with his inhalers. WBC 19.1 BUN 29 GFR 66 Glu 171 BNP 428 CXR FINDINGS: Portable technique limits examination quality. Mild interstitial opacities are present bilaterally which may represent interstitial pulmonary edema. Increased medial right lung base markings are noted, cannot exclude early pneumonia in this region. The heart is upper limit normal in size. Hospital Course: Patient was admitted for presumed pneumonia and COPD exacerbation. Chest x-ray shows no evidence of acute infiltrate. Patient was continued on routine antibiotics as well as IV steroids with significant improvement in his respiratory symptoms. He is satting well and ambulating without any difficulty now. He was evaluated by pulmonary DrCarol And switched to oral steroids. His white cell count was initial elevated at 19 but improved to 15 and stable at 16 K now he will be discharged home today to follow-up with his pulmonary physician in the next 1 week Vital Signs/Physical Exam: Temp Pulse Resp BP Pulse Ox 97.1 F 89 19 153/61 H 92 01/23/21 09:06 01/23/21 09:06 01/23/21 09:06 01/23/21 09:06 01/23/21 09:06 General: Alert, In no apparent distress, Oriented x3 HEENT: Atraumatic, Normocephalic, PERRLA Neck: Supple, 2+ carotid pulse no bruit, JVD not distended Respiratory: Clear to auscultation bilaterally, Normal air movement Cardiovascular: Normal pulses, Regular rate/rhythm, Normal S1 S2 Gastrointestinal: Normal bowel sounds, Non-distended Integumentary: No rashes, No breakdown, No significant lesion Neurological: Normal gait, Normal speech, Normal strength at 5/5 x4 extr, Normal tone Laboratory Data at Discharge: WBC 16.80 K/uL (4.3-10.9) H 01/23/21 03:44 Hgb 11.4 g/dL (13.6-17.9) L 01/23/21 03:44 Hct 34.9 % (39.6-49.0) L 01/23/21 03:44 Plt Count 366 K/uL (152-406) 01/23/21 03:44 PT 13.9 SECONDS (9.5-12.5) H 01/21/21 19:26 INR 1.21 01/21/21 19:26 Sodium 137 mmol/L (136-145) 01/23/21 03:44 Potassium 4.0 mmol/L (3.5-5.1) 01/23/21 03:44 BUN 38 mg/dL (7-18) H 01/23/21 03:44 Creatinine 1.16 mg/dL (0.55-1.3) 01/23/21 03:44 Glucose 178 mg/dL (74-106) H 01/23/21 03:44 Phosphorus 2.3 mg/dL (2.5-4.9) L 01/23/21 03:44 Magnesium 2.2 mg/dL (1.8-2.4) 01/22/21 03:47 Total Bilirubin 0.1 mg/dL (0.2-1.0) L 01/23/21 03:44 AST 16 U/L (15-37) 01/23/21 03:44 ALT 27 U/L (12-78) 01/23/21 03:44 Alkaline Phosphatase 69 U/L (45-117) 01/23/21 03:44 Triglycerides 97 mg/dL (<150) 01/22/21 03:47 Cholesterol 135 mg/dL (<200) 01/22/21 03:47 HDL Cholesterol 59 mg/dL (40-60) 01/22/21 03:47 Cholesterol/HDL Ratio 2.29 01/22/21 03:47 Home Medications: Sertraline [Zoloft*] 100 mg PO BID 05/13/13 Simvastatin [Zocor*] 40 mg PO BEDTIME 05/13/13 Hydrocodone/Acetaminophen [[place] 5-325 Tablet] 1 each PO BIDP PRN 01/26/17 Triamterene/Hydrochlorothiazid [Triamterene-Hctz 37.5-25 mg Cp] 1 each PO DAILY 01/26/17 Albuterol Inhaler [Ventolin Inhaler*] 1 puff IN BID 01/22/21 Fluticasone/Umeclidin/Vilanter [Trelegy Ellipta 100-62.5-25] 1 puff IN DAILY 01/22/21 Metformin HCl 1 tab PO DAILY 01/22/21 Tamsulosin [Flomax*] 1 cap PO BEDTIME 01/22/21 Albuterol Neb [Proventil 0.083% Neb Soln] 2.5 mg NEB [id number] #30 amp 01/23/21 Apixaban [Eliquis] 5 mg PO BID tablet 01/23/21 Benzonatate [Tessalon Perle*] 100 mg PO TID PRN #10 cap 01/23/21 Nebulizer and Compressor [Compressor Nebulizer System] 1 each MC PRN #1 each 01/23/21 levoFLOXacin [Levaquin*] 500 mg PO DAILY #5 tab 01/23/21 New Medications: Nebulizer and Compressor [Compressor Nebulizer System] 1 each MC PRN #1 each levoFLOXacin [Levaquin*] 500 mg PO DAILY #5 tab Albuterol Neb [Proventil 0.083% Neb Soln] 2.5 mg NEB [id number] #30 amp Benzonatate [Tessalon Perle*] 100 mg PO TID PRN #10 cap PRN Reason: Cough Diet: Low sodium Activity: Ad ginna Followup: Uri Maldonado DO [Primary Care Provider] - Time spent managing pt's care (in minutes): 35
[2021-01-23 11:23] VITALS: O2SAT 96
[2021-01-23 12:27] VITALS: BP 158/76
[2021-01-23] MEDS ORDERED: ATORVASTATIN 20 MG TAB PO SCH (21:00)
[2021-01-23] MEDS ORDERED: TAMSULOSIN 0.4 MG SR CAP PO SCH (21:00)
--- NOTE | 2021-01-26 14:09 | CON ---
Date of Consultation: 01/22/2021 Reason For Consultation: Atrial fibrillation. History Of Present Illness: Mr. Marcelino is a 70-year-old male. Has a history of hypertension, COPD, and diabetes. No previous cardiac history. Came in with COPD exacerbation. He takes multiple inha lers. Was in atrial fibrillation for about an hour and converted back to sinus rhythm. When he was in AFib, he had no symptoms. He came in with dyspnea on exertion secondary to COPD. Denied any ches t pain, nausea, vomiting, diaphoresis, PND, orthopnea, pedal edema, palpitations, or syncope. Past Medical History: As stated above. Allergies: HE IS ALLERGIC TO [place]. Review of Systems: Negative. Social History: Negative. Family History: Negative. Medications: At home include inhalers, triamterene with hydrochlorothiazide, metformin, Zoloft, Zoco r, and Flomax. Physical Examination: General: Very pleasant, no acute distress, and honestly, he was in normal sinus rhythm without any c omplaint. Appeared much younger than his stated age. HEENT: Negative. Neck: Supple with no bruit. Chest: Revealed some expiratory wheezing. Cardiac: Normal. Abdomen: Benign. Extremities: Revealed no clubbing, cyanosis, or edema. Diagnostic Data: Showed a white count of 15,000. BNP 428. His TSH was 0.224. Impression And Plan: 1.Paroxysmal atrial fibrillation secondary to hypoxia from chronic obstructive pulmonary disease. 2.Hypertension. 3.Diabetes. Both of those are well controlled. I would obtain a 2D echocardiogram on the surgical part. His echocardiogram is normal. I would probably avoid anticoagulants except for an aspirin. T his was just 1 episode thing. I would continue his inhalers. He is already also on steroid. Contin ue his present home regimen. His heart rate now is in sinus at 60 and put him on a beta-b locker because of that and because of chronic obstructive pulmonary disease. If his echo is normal, he can go home on aspirin and his other medications. We will see him in the office as an outpatient. I can do an event monitor on him then. YENI/RIZWAN Voice ID: [id number] Report ID: [id number]
== END 2021-01-23 13:39 | disposition home or self-care (01) | DRG 191 ==
LOC: ER 18:52 → ERHOLD 21:53 → 4TH 23:40
PROVIDERS: ADMIT Hospitalist; ATTEND Internal Medicine
DX: J44.1 Chronic obstructive pulmonary disease with (acute) exacerbation (principal); I48.92 Unspecified atrial flutter; I12.9 Hypertensive chronic kidney disease with stage 1 through stage 4 chronic kidney disease, or unspecified chronic kidney disease; N18.2 Chronic kidney disease, stage 2 (mild); E11.22 Type 2 diabetes mellitus with diabetic chronic kidney disease; F17.210 Nicotine dependence, cigarettes, uncomplicated; I48.0 Paroxysmal atrial fibrillation; E78.5 Hyperlipidemia, unspecified; J45.909 Unspecified asthma, uncomplicated; Z91.048 Other nonmedicinal substance allergy status; Z79.52 Long term (current) use of systemic steroids; Z79.84 Long term (current) use of oral hypoglycemic drugs; Z79.899 Other long term (current) drug therapy; Z20.822 Contact with and (suspected) exposure to COVID-19; Z79.01 Long term (current) use of anticoagulants
CPT/HCPCS: 36415; 71045; 80048; 80053; 80061; 80076; 82947; 83735; 83880; 84100; 84439; 84443; 84484; 85025; 85610; 87040; 93005; 93306; 94640; 94760; 96365; 96375; 99285; J1940; J2920; J2930; J7512; U0003

== ENCOUNTER 2021-05-27 18:09 | Inpatient (IN) | payer OTHER ==
--- OUTSIDE RECORDS SUMMARY | 2021-05-27 18:12 | XMS REPORT | Continuity of Care Document ---
:1950 Author Organization [facility] t Address [address] [place] [address] Care Team Providers Name Role Phone Lenka Maldonado Attending Clinician Unavailable Problems This patient has no known problems. Allergies, Adverse Reactions, Alerts This patient has no known allergies or adverse reactions. Medications Ordered Filled Start Stop Current Ordering Indication Dosage Frequency Signature Comments Components Source Medication Medication Date Date Medication? Clinician (SIG) Name Name Bactrim DS Bactrim DS 2019- No Kaylee [address] [facility] 9-17 09-20 [place] [facility] Tamsulosin Tamsulosin 2020- No Kaylee [address] [facility] HCl HCl 8-18 -13 [place] [facility] Zoloft Zoloft Yes Kaylee 2 [facility] Trelegy Trelegy Yes Kaylee INHALE [address] [facility] Ellipta Ellipta Chen PUFF BY Leandra kes - MOUTH Memoria EVERY DAY [facility] PredniSONE PredniSONE Yes Kaylee [address] [facility] Sertraline Sertraline Yes Kaylee TAKE [address] [facility] HCl HCl Chen TABLETS [facility] ONCE DAILY [facility] Simvastatin Simvastatin Yes Kaylee TAKE [address] [facility] Chen TABLET BY [facility]TH [facility] Januvia Januvia Yes Kaylee TAKE [address] [facility] [place] TABLET [facility] ONCE DAILY [facility] Albuterol Albuterol Yes Kaylee [address] [facility] Sulfate HFA Sulfate HFA Chen needed [facility] Pregabalin Pregabalin Yes Kaylee [address] [facility] [place] 1 to 3 [facility] - hours [facility] before l [facility] [place] Yes Kaylee [address] [facility] Chen as needed [facility] Lisinopril Lisinopril Yes Kaylee [address] [facility] [place] [facility] Simvastatin Simvastatin Yes Kaylee [address] [facility] Chen in the [facility] evening [facility] Baclofen Baclofen Yes Kaylee not [facility] Chen defined [facility] Flonase Flonase Yes Kaylee [address] [facility] [place] each [facility] nostril [facility] Metformin Metformin Yes Kaylee TAKE [address] HCl HCl Chen TABLET BY [facility]TH [facility] TWICE A l DAY [facility] Triamterene Triamterene Yes Kaylee [address] [facility] -HCTZ -HCTZ [place] in the [facility] - morning [facility] l [facility] ent [facility]ics Procedures This patient has no known procedures. Encounters Start End Encounter Admission Attending Care Care Encounter Source Date/Time Date/Time Type Type Clinicians Facility Department ID 2021-03-05 Outpatient [facility]ly [facility] [place] [id number] [facility] 2021-03-05 Outpatient Maldonado [facility] 12:[facility] [place] [id number] [facility] 2021-03-05 Outpatient [facility] [place] [id number] [facility] 2021-03-05 Outpatient [facility] 11:[facility]:09 [place] [id number] [facility] 2021-03-05 Outpatient [facility] [place] [id number] [facility] 2021-03-05 Outpatient Maldonado, STLMLC STLMLC [id number] [facility] 11:07:31 Uri [id number] [facility] 2021-03-05 Outpatient Maldonado, STLMLC [facility] 11:[facility] [place] [id number] [facility] 2021-02-10 2021-02-10 ambulatory [facility]LMLC [facility] [id number] [facility] 2021 2021 ambulatory [facility]LMLC [facility] [id number] [facility] 2021-01-23 2021-01-23 ambulatory [facility]LMLC [facility] [id number] [facility] 2020-11-14 2020-11-14 Outpatient [facility]LMLC [facility] [id number] [facility] 2020-11-14 2020-11-14 Outpatient STLMLC [facility] [id number] [facility] 2020-08-13 2020-08-13 Outpatient [facility]LMLC [facility] [id number] [facility] 2020-06-11 2020-06-11 Outpatient STLMLC [facility] [id number] [facility] 2020-04-23 2020-04-23 Outpatient STLMLC [facility] [id number] [facility] 2020-04-16 2020-04-16 Outpatient [facility]LMLC [facility] [id number] [facility] 2020-04-15 2020-04-15 [facility] [id number] [facility] 2020-01-17 2020-01-17 Outpatient [facility] [id number] [facility] 2020-01-15 2020-01-15 [facility] [id number] [facility] 2019-11-30 2019-11-30 [facility] [id number] [facility] 2019-11-16 2019-11-16 [facility] [id number] [facility] 2019-10-26 2019-10-26 [facility] [id number] [facility] 10:15:00 10:15:00 t Specialty/U Leandra kes - Specialty rology Memori a /Urology Clinic l Clinic Outpati ent Clinics 2019-10-18 2019-10-18 [facility] [id number] [address] 11:40:00 11:40:00 t [employer] [place] - [employer] [facility] Outpati ent Clinics 2019-10-10 2019-10-10 [facility] [id number] [facility] 09:00:00 09:00:00 t Specialty/U Leandra kes - Specialty rology Memori a /Urology Clinic l Clinic Outpati ent Clinics 2019-09-27 2019-09-27 [facility] [id number] [facility] 10:00:00 10:00:00 t Specialty/U Leandra kes - Specialty rology Memori a /Urology Clinic l Clinic Outpati ent Clinics 2019-09-26 2019-09-26 [facility] [id number] 11:15:00 11:15:00 t Specialty/U Leandra kes - Specialty rology Memori a /Urology Clinic l Clinic Outpati ent Clinics 2019-09-06 2019-09-06 [facility] [id number] [address] 14:14:00 14:14:00 t Specialty/U Leandra kes - Specialty rology Memori a /Urology Clinic l Clinic Outpati ent Clinics 2019-08-09 2019-08-09 [facility] [id number] 10:30:00 10:30:00 t Specialty/U Leandra kes - Specialty rology Memori a /Urology Clinic l Clinic Outpati ent Clinics 2019-08-07 2019-08-07 [facility] [id number] [address] 09:45:00 09:45:00 t Specialty/U Leandra kes - Specialty rology Memori a /Urology Clinic l Clinic Outpati ent Clinics 2019-07-31 2019-07-31 [facility] [id number] [address] 09:29:00 09:29:00 t Specialty/U Leandra kes - Specialty rology Memori a /Urology Clinic l Clinic Outpati ent Clinics 2019-07-27 2019-07-27 [facility] [id number] 13:45:00 13:45:00 t Specialty/U Leandra kes - Specialty rology Memori a /Urology Clinic l Clinic Outpati ent Clinics 2019-07-24 2019-07-24 [facility] [id number] [facility] 08:08:00 08:08:00 [place] [employer] s - Drive [facility] l Medicine Outpati ent Clinics 2019-07-18 2019-07-18 [facility] [id number] 10:30:00 10:30:00 t [employer] s - Drive [facility] l Medicine Outpati ent Clinics 2019-07-04 2019-07-04 [facility] [id number] [address] 14:52:00 14:52:00 t [employer] s - Drive [facility] Medicine l Medicine Outpati ent Clinics 2019-04-13 2019-04-13 [facility] [id number] [facility] 09:15:00 09:15:00 [place] [employer] s - Drive [facility] l Medicine Outpati ent Clinics 2019-04-13 2019-04-13 [facility] [id number] [address] 09:00:00 09:00:[address] Luke s - Drive [facility] Medicine l Medicine Outpati ent Clinics 2019-03-29 2019-03-29 [facility] [id number] 15:50:00 15:50:[address] Luke s - Drive [facility] Medicine l Medicine Outpati ent Clinics 2018-12-27 2018-12-27 [facility] [id number] [facility] 16:30:00 16:30:[address] Luke s - Drive [facility] Medicine l Medicine Outpati ent Clinics 2018-12-19 2018-12-19 [facility] [id number] [facility] 16:47:00 16:47:[address] Luke s - Drive [facility] Medicine Outpati ent Clinics 2018-12-19 2018-12-19 [facility] [id number] [address] 16:04:00 16:04:00 [place] [employer] Luke s - Drive [facility] Medicine Outpati ent Clinics 2018-10-05 2018-10-05 [facility] [id number] [facility] 16:53:00 16:53:00 [place] [employer] Luke s - Drive [facility] Medicine Medicine Outpati ent Clinics 2018-10-03 2018-10-03 [facility] [id number] [address] 14:09:00 14:09:00 [place] [employer] Luke s - Drive [facility] Medicine l Medicine Outpati ent Clinics 2018-08-02 2018-08-02 [facility] [id number] 10:00:00 10:00:[address] Luke s - Drive [facility] Medicine Medicine Outpati ent Clinics 2018-06-14 2018-06-14 [facility] [id number] [facility] 10:36:00 10:36:[address] Luke s - Drive [facility] Medicine Outpati ent Clinics 2018-04-20 2018-04-20 [facility] [id number] [facility] 08:30:00 08:30:00 [place] [employer] s - Drive [facility] l Medicine Outpati ent Clinics 2018-01-20 2018-01-20 [facility] [id number] 08:30:00 08:30:00 t [employer] [facility] Medicine Outpati ent Clinics 2018-01-19 2018-01-19 [facility] [id number] [facility] 10:01:00 10:01:00 t [employer] [facility] Medicine Outpati ent Clinics 2017-11-02 2017-11-02 [facility] [id number] [facility] 13:45:00 13:45:00 t [employer] [facility] Medicine Outpati ent Clinics 2017-08-10 2017-08-10 [facility] [id number] 14:45:00 14:45:00 t [employer] [facility] Medicine Outpati ent Clinics 2017-05-28 2017-05-28 [facility] [id number] 10:15:00 10:15:00 t [employer] [facility] Medicine Outpati ent Clinics Results This patient has no known results.
[2021-05-27] MEDS ORDERED: METHYLPREDNISOLONE 125 MG INJ ONE (18:47)
[2021-05-27] MEDS ORDERED: IPRATROPIUM BROM 0.5MG/2.5ML ONE (18:47)
[2021-05-27] MEDS ORDERED: ASPIRIN 81 MG CHEWABLE TABLET ONE (18:47)
[2021-05-27] MEDS ORDERED: ALBUTEROL 2.5 MG/3 ML NEB SOL ONE (18:47)
[2021-05-27 19:48] LABS: Absolute Lymphocytes (CBC) 1.5 K/uL (0.7-4.9); Hematocrit 36.3 % (39.6-49.0); Lymphocytes % 10.9 % (15.3-44.8); MPV 7.5 fL (7.6-11.3); Protime INR 1.14; RBC Red Blood Cell Count 4.01 M/uL (4.33-5.43)
--- NOTE | 2021-05-27 19:58 | RAD REPORT ---
EXAM DESCRIPTION: RAD - Chest Single View - 05/27/2021 7:28 pm CLINICAL HISTORY: SOB COMPARISON: Portable 01/21/2021 and 01/26/2017 TECHNIQUE: AP portable chest image was obtained 05/27/2021 7:28 pm . FINDINGS: No focal mass or consolidation. Interstitial markings are prominent but not clearly differ ent from the comparison. Heart and vasculature are normal. No measurable pleural effusion and no pneu mothorax. No acute bony abnormality seen. No acute aortic findings suspected. IMPRESSION: No acute cardiopulmonary process. Chronic interstitial pattern matches comparison. Severity of chronic pattern could mask mild edema or infiltrate.
[2021-05-27 20:10] LABS: ALT/SGPT 18 U/L (12-78); AST/SGOT 27 U/L (15-37); Albumin 3.4 g/dL (3.4-5.0); Alkaline Phosphatase 70 U/L (45-117); BUN Blood Urea Nitrogen 38 mg/dL (7-18); Bicarbonate 24 mmol/L (21-32); Bilirubin Total 0.3 mg/dL (0.2-1.0); Glucose Level 106 mg/dL (74-106); Magnesium 1.9 mg/dL (1.8-2.4); NT PRO-BNP 632 pg/mL (<125); Potassium 3.5 mmol/L (3.5-5.1); Protein, Total 7.5 g/dL (6.4-8.2); Sodium Level 130 mmol/L (136-145); Troponin High Sensitivity 18.1 pg/mL (<58.9)
[2021-05-27] MEDS ORDERED: MORPHINE 4 MG/ML SYR ONE (20:12)
[2021-05-27] MEDS ORDERED: ONDANSETRON 4 MG/2 ML VIAL ONE (20:12)
[2021-05-27 20:18] LABS: Bilirubin Direct < 0.1 mg/dL (0-0.2)
[2021-05-27 20:40] LABS: Blood Morphology Comment NOT SEEN (NOT SEEN); Platelet Estimate ADEQ; White Blood Cell Scan OK (OK)
[2021-05-27 20:50] LABS: SARS-COV-2 RT PCR NEGATIVE (NEGATIVE)
--- NOTE | 2021-05-27 21:03 | EDPHYS ---
Physician Documentation [facility] Name: Jose Marcelino Age: 71 yrs Sex: Male : 1950 Arrival Date: 05/27/2021 Time: 18:20 Bed 26 Private MD: ED Physician Kiana Jaffe HPI: 05/27 18:45 This 71 yrs old Male presents to ER via Wheelchair with complaints of Shortness Of cp Breath. 18:45 The patient has shortness of breath at rest. cp 18:45 Onset: The symptoms/episode began/occurred 4 day(s) ago. Duration: The symptoms are cp continuous, and are steadily getting worse. Associated signs and symptoms: Pertinent positives: chest pain, productive cough, Pertinent negatives: fever, vomiting. Severity of symptoms: in the emergency department the symptoms are unchanged despite home interventions. Patient reports family member recently tested positive for influenza. Historical: - Allergies: 18:21 No Known Allergies; iw - PMHx: 18:21 Chronic obstructive lung disease; diabetes mellitus; Hypertensive disorder; iw - Immunization history:: Client reports receiving the 2nd dose of the Covid vaccine. - Social history:: Smoking status: Patient reports the use of cigarette tobacco products, smokes one pack cigarettes per day. ROS: 18:50 Constitutional: Negative for fever, poor PO intake. cp 18:50 Eyes: Negative for injury, pain, redness, and discharge. cp 18:50 Cardiovascular: Positive for chest pain, Negative for edema, palpitations. 18:50 Respiratory: Positive for cough, shortness of breath, at rest. 18:50 Abdomen/GI: Negative for abdominal pain, vomiting, diarrhea, constipation. 18:50 Back: Negative for pain at rest, pain with movement. 18:50 Skin: Negative for rash. 18:50 Neuro: Negative for altered mental status, dizziness, headache, weakness. 18:50 All other systems are negative. Exam: 18:35 ECG was reviewed by the Attending Physician. cp 18:55 Constitutional: The patient appears in no acute distress, alert, awake, cp non-diaphoretic, non-toxic, well developed, well nourished. 18:55 Head/Face: Normocephalic, atraumatic. cp 18:55 Eyes: Periorbital structures: appear normal, Conjunctiva: normal, no exudate, no injection, Sclera: no appreciated abnormality, Lids and lashes: appear normal, bilaterally. 18:55 ENT: External ear(s): are unremarkable, Nose: is normal, Mouth: Lips: moist, Oral mucosa: moist, Posterior pharynx: Airway: no evidence of obstruction, patent. 18:55 Neck: ROM/movement: is normal, is supple, without pain, no range of motions limitations, no meningismus. 18:55 Chest/axilla: Inspection: normal, Palpation: is normal, no crepitus, no tenderness. 18:55 Cardiovascular: Rate: tachycardic, Rhythm: regular, Edema: is not appreciated, JVD: is not appreciated. 18:55 Respiratory: severe repiratory distress is noted, Respirations: labored breathing, cp that is severe, shallow respirations, that is severe, Breath sounds: decreased breath sounds, that are severe, throughout, stridor, is not appreciated, wheezing: that is mild, is heard diffusely. 18:55 Abdomen/GI: Inspection: abdomen appears normal, Bowel sounds: active, all quadrants, Palpation: abdomen is soft and non-tender, in all quadrants. 18:55 Back: pain, is absent, ROM is normal. 18:55 Skin: cellulitis, is not appreciated, no rash present. 18:55 Neuro: Orientation: to person, place \\T\\ time. Mentation: is normal, Motor: moves all fours, strength is normal, Sensation: is normal. 20:57 ECG was reviewed by the Attending Physician. cp Vital Signs: 18:22 BP 124 / 52; Pulse 106; Resp 20 S; Temp 98.8(O); Pulse Ox 91% on R/A; Weight 76.2 kg; iw Height 5 ft. 8 in. (172.72 cm); 18:45 BP 126 / 59; Pulse 108; Resp 20; Pulse Ox 100% on 40% BiPAP; Pain 0/10; ld1 20:37 BP 115 / 60; Pulse 88; Resp 23; Pulse Ox 100% on 40% BiPAP; ld1 21:37 BP 117 / 50; Pulse 83; Resp 21; Pulse Ox 100% on 40% BiPAP; ld1 04/20 01:55 BP 112 / 57; Pulse 73; Resp 22; Pulse Ox 100% on 40% BiPAP; wm 03:46 BP 103 / 46; Pulse 66; Resp 21; Pulse Ox 100% on 40% BiPAP; wm 06:39 BP 130 / 62; Pulse 86; Resp 25; Pulse Ox 99% on 2 lpm NC; wm 05/27 18:22 Body Mass Index 25.54 (76.20 kg, 172.72 cm) iw MDM: 05/27 18:30 Patient medically screened. cp 21:05 Data reviewed: vital signs, nurses notes, lab test result(s), EKG, radiologic studies, cp plain films. 21:05 Test interpretation: by ED physician or midlevel provider: ECG, plain radiologic cp studies. Counseling: I had a detailed discussion with the patient and/or guardian regarding: the historical points, exam findings, and any diagnostic results supporting the discharge/admit diagnosis, lab results, radiology results, the need for further work-up and treatment in the hospital. Physician consultation: Brissa STAPLES was called at 21:00, was contacted at 21:00, regarding admission, to the telemetry unit. patient's condition. 21:05 Data interpreted: monitoring engineer: rhythm is regular, Pulse oximetry: on BIPAP is 99 %. cp Interpretation: acceptable. 05/27 18:30 Order name: COVID-19/FLU A+B (Document "Date of Onset" if Symptomatic); Complete Time: cp 20:59 05/27 18:30 Order name: Basic Metabolic Panel; Complete Time: 20:45 cp 05/27 20:45 Interpretation: Normal except: NA 130; CL 96; BUN 38; GFR 58. cp 05/27 18:30 Order name: CBC with Diff; Complete Time: 20:45 cp 05/27 20:01 Interpretation: Normal except: WBC 14.1; RBC 4.01; HGB 12.0; HCT 36.3; MPV 7.5; MARGARITA% cp 81.7; LYM% 10.9; NEUT A 11.5. 05/27 18:30 Order name: LFT's; Complete Time: 20:45 cp 05/27 18:30 Order name: Magnesium; Complete Time: 20:45 cp 05/27 18:30 Order name: NT PRO-BNP; Complete Time: 20:45 cp 05/27 18:30 Order name: PT-INR; Complete Time: 20:01 cp 05/27 18:30 Order name: Troponin HS; Complete Time: 20:45 cp 05/27 20:46 Interpretation: Reviewed. cp 05/27 18:30 Order name: Procalcitonin; Complete Time: 20:45 cp 05/27 18:30 Order name: Blood Culture Adult (2) cp 05/27 18:30 Order name: Lactate; Complete Time: 20:45 cp 05/27 20:41 Order name: CBC Smear Scan; Complete Time: 20:45 EDMS 05/28 05:33 Order name: CBC with Automated Diff EDMS 05/28 05:43 Order name: Comprehensive Metabolic Panel EDMS 05/27 18:30 Order name: XRAY Chest (1 view); Complete Time: 20:01 cp 05/27 18:30 Order name: EKG; Complete Time: 18:31 cp 05/27 18:30 Order name: Cardiac monitoring; Complete Time: 19:06 cp 05/28 05:43 Order name: Phosphorus EDMS 05/28 05:43 Order name: Magnesium EDMS 05/28 07:42 Order name: RAD EDMS 05/28 08:06 Order name: Glucose, Ancillary Testing EDMS 05/28 11:32 Order name: Glucose, Ancillary Testing EDMS 05/27 18:30 Order name: EKG - Nurse/Tech; Complete Time: 18:55 cp 05/27 18:30 Order name: IV Saline Lock; Complete Time: 19:07 cp 05/27 18:30 Order name: Labs collected and sent; Complete Time: 19:33 cp 05/27 18:30 Order name: O2 Per Protocol; Complete Time: 19:07 cp 05/27 18:30 Order name: O2 Sat Monitoring; Complete Time: 19:07 cp 05/27 19:21 Order name: Labs - recollect needed: green and purple top; Complete Time: 19:32 mw2 EC:35 Rate is 105 beats/min. Rhythm is regular. CT interval is normal. QRS interval is cp prolonged at 132 msec. QT interval is normal. T waves are Inverted in leads V2, V3, V4, V5. Interpreted by me. Reviewed by me. 20:57 Rate is 86 beats/min. Rhythm is regular. CT interval is normal. QRS interval is cp prolonged at 142 msec. QT interval is normal. T waves are Inverted in leads aVR, V2, V3, V4, V5. Interpreted by me. Reviewed by me. Administered Medications: 19:07 Drug: Albuterol - atroVENT (ipratropium) (3:1) (2.5 mg - 0.5 mg) 3 ml Route: Nebulizer; ld1 19:08 Follow up: Response: No adverse reaction ld1 19: Drug: Aspirin Chewable Tablet 324 mg Route: PO; ld1 19:08 Follow up: Response: No adverse reaction ld1 19: Drug: SOLU-Medrol (methylPrednisoLONE) 125 mg Route: IVP; Site: left antecubital; ld1 19: Follow up: Response: No adverse reaction ld1 20: Drug: morphine 4 mg Route: IVP; Site: left antecubital; ld1 21:27 Follow up: Response: No adverse reaction ld1 : Drug: Lovenox (enoxaparin) 1 mg/kg Route: Sub-Q; Site: abdomen; ld1 :27 Drug: Magnesium Sulfate 1 grams Route: IVPB; Infused Over: 1 hrs; Site: left ld1 antecubital; 21:27 Drug: Tamiflu (oseltamivir) 75 mg Route: PO; ld1 22:25 Drug: LevaQUIN (levofloxacin) 750 mg Volume: 150 ml; Route: IVPB; Infused Over: 90 ld1 mins; Site: left antecubital; Disposition Summary: 05/27/21 21:02 Hospitalization Ordered Hospitalization Status: Inpatient Admission cp Provider: Kiana Devine cp Condition: Stable cp Problem: new cp Symptoms: have improved cp Bed/Room Type: Standard cp Location: Telemetry/MedSurg (Inpatient)(05/28/21 09:15) Room Assignment: 401(05/28/21 09:15) bd Diagnosis - COPD/ Chronic obstructive pulmonary disease with acute lower respiratory infection cp - Influenza due to identified novel influenza A virus cp Forms: - Medication Reconciliation Form cp - SBAR form cp Addendum: 05/29/2021 18:36 Co-signature as Attending Physician, Kiana Jaffe MD. m a2 Signatures: Dispatcher [employer] EDMS Lilia Ariza Irene, RN RN iw Page, Corey, PA PA cp Garcia, Cindy, RN RN Kiana Jaffe MD MD ak2 Svitlana Baptiste 2 Janessa Evans, RN RN ld1 Corrections: (The following items were deleted from the chart) 05/27 21: 21:02 Telemetry/MedSurg (Inpatient) cp cg 21:02 cp cg 05/28 09:15 05/27 21:14 [facility] ER HOLD cg bd 05/28 09:15 05/27 21:14 ERHOLD- cg bd
--- NOTE | 2021-05-27 21:03 | ER ---
Nurse's Notes [facility] Name: Jose Marcelino Age: 71 yrs Sex: Male : 1950 Arrival Date: 05/27/2021 Time: 18:20 Bed 26 Private MD: Diagnosis: COPD/ Chronic obstructive pulmonary disease with acute lower respiratory infection;Influenza due to identified novel influenza A virus Presentation: 05/27 18:20 Chief complaint: Patient states: was exposed to flu last week, has had diff breathing iw and body aches since then. Coronavirus screen: Client presents with at least one sign or symptom that may indicate coronavirus-19. Ebola Screen: Patient negative for fever greater than or equal to 101.5 degrees Fahrenheit, and additional compatible Ebola Virus Disease symptoms Patient denies exposure to infectious person. Patient denies travel to an Ebola-affected area in the 21 days before illness onset. No symptoms or risks identified at this time. Risk Assessment: Do you want to hurt yourself or someone else? Patient reports no desire to harm self or others. Onset of symptoms was May 22, 2021. 18:20 Method Of Arrival: Wheelchair iw 18:20 Acuity: PHUC 3 iw 18:22 Initial Sepsis Screen: Does the patient meet any 2 criteria? HR > 90 bpm. Does the iw patient have a suspected source of infection? No. Patient's initial sepsis screen is negative. Historical: - Allergies: 18:21 No Known Allergies; iw - PMHx: 18:21 Chronic obstructive lung disease; diabetes mellitus; Hypertensive disorder; iw - Immunization history:: Client reports receiving the 2nd dose of the Covid vaccine. - Social history:: Smoking status: Patient reports the use of cigarette tobacco products, smokes one pack cigarettes per day. Screenin:45 Abuse screen: Denies threats or abuse. Denies injuries from another. Nutritional ld1 screening: No deficits noted. Tuberculosis screening: No symptoms or risk factors identified. Fall Risk None identified. Assessment: 18:45 General: Appears in no apparent distress. uncomfortable, Behavior is calm, cooperative, ld1 appropriate for age. 18:45 Pain: Denies pain. Neuro: Level of Consciousness is awake, alert, obeys commands, ld1 Oriented to person, place, time, situation. Cardiovascular: Capillary refill < 3 seconds Patient's skin is warm and dry. Cardiovascular: Rhythm is irregular. Respiratory: Airway is patent Respiratory effort is even, labored. Respiratory: Breath sounds are clear bilaterally. Respiratory: Reports shortness of breath at rest on exertion. GI: Abdomen is round non-distended, Reports diarrhea, nausea. : No signs and/or symptoms were reported regarding the genitourinary system. EENT: No signs and/or symptoms were reported regarding the EENT system. Derm: No signs and/or symptoms reported regarding the dermatologic system. Musculoskeletal: No signs and/or symptoms reported regarding the musculoskeletal system. 20:37 Reassessment: Patient appears in no apparent distress at this time. Patient and/or ld1 family updated on plan of care and expected duration. Pain level reassessed. Vital Signs: 18:22 BP 124 / 52; Pulse 106; Resp 20 S; Temp 98.8(O); Pulse Ox 91% on R/A; Weight 76.2 kg; iw Height 5 ft. 8 in. (172.72 cm); 18:45 BP 126 / 59; Pulse 108; Resp 20; Pulse Ox 100% on 40% BiPAP; Pain 0/10; ld1 20:37 BP 115 / 60; Pulse 88; Resp 23; Pulse Ox 100% on 40% BiPAP; ld1 21:37 BP 117 / 50; Pulse 83; Resp 21; Pulse Ox 100% on 40% BiPAP; ld1 05/28 01:55 BP 112 / 57; Pulse 73; Resp 22; Pulse Ox 100% on 40% BiPAP; wm 03:46 BP 103 / 46; Pulse 66; Resp 21; Pulse Ox 100% on 40% BiPAP; wm 06:39 BP 130 / 62; Pulse 86; Resp 25; Pulse Ox 99% on 2 lpm NC; wm 05/27 18:22 Body Mass Index 25.54 (76.20 kg, 172.72 cm) iw ED Course: 05/27 18:20 Patient arrived in ED. iw 18:21 Triage completed. iw 18:21 Arm band placed on. iw 18:25 Emeka eHrnandez PA is PHCP. cp 18:25 Kiana Jaffe MD is Attending Physician. cp 18:39 Janessa Evans, RAMON is Primary Nurse. ld1 18:45 No provider procedures requiring assistance completed. Inserted saline lock: 20 gauge ld1 in left antecubital area, using aseptic technique. 18:55 Patient has correct armband on for positive identification. Placed in gown. Bed in low mh5 position. Call light in reach. Side rails up X2. Adult w/ patient. Warm blanket given. campus monitor on. Pulse ox on. NIBP on. 18:56 Missed attempt(s): 20 gauge in right. mh5 18:56 EKG done, by ED staff, reviewed by Kiana Jaffe MD. 5 19:30 XRAY Chest (1 view) In Process Unspecified. EDMS 19:33 COVID-19/FLU A+B (Document "Date of Onset" if Symptomatic) Sent. ld1 21:01 Kiana Devine MD is Hospitalizing Provider. cp Administered Medications: 19:07 Drug: Albuterol - atroVENT (ipratropium) (3:1) (2.5 mg - 0.5 mg) 3 ml Route: Nebulizer; ld1 19:08 Follow up: Response: No adverse reaction ld1 19:07 Drug: Aspirin Chewable Tablet 324 mg Route: PO; ld1 19:08 Follow up: Response: No adverse reaction ld1 19:07 Drug: SOLU-Medrol (methylPrednisoLONE) 125 mg Route: IVP; Site: left antecubital; ld1 19:09 Follow up: Response: No adverse reaction ld1 20:19 Drug: morphine 4 mg Route: IVP; Site: left antecubital; ld1 21:27 Follow up: Response: No adverse reaction ld1 21:26 Drug: Lovenox (enoxaparin) 1 mg/kg Route: Sub-Q; Site: abdomen; ld1 21:27 Drug: Magnesium Sulfate 1 grams Route: IVPB; Infused Over: 1 hrs; Site: left ld1 antecubital; 21:27 Drug: Tamiflu (oseltamivir) 75 mg Route: PO; ld1 22:25 Drug: LevaQUIN (levofloxacin) 750 mg Volume: 150 ml; Route: IVPB; Infused Over: 90 ld1 mins; Site: left antecubital; Outcome: 21:02 Decision to Hospitalize by Provider. cp 05/28 14:04 Patient left the ED. iw Signatures: Dispatcher [employer] EDMS Buffy Weiss RN RN Emeka Wilde PA PA cp Martinez, Maria 5 Janessa Evans, RN RN ld1 Damrai Flynn
[2021-05-27] MEDS ORDERED: MAGNESIUM SULFATE 1 gm IVPB 1 GM/100 ML BAG IV ONE (21:21)
[2021-05-27] MEDS ORDERED: ENOXAPARIN 80 MG/0.8 ML SQ ONE (21:21)
[2021-05-27] MEDS ORDERED: OSELTAMIVIR 75 MG CAP ONE (21:21)
[2021-05-27] MEDS ORDERED: Levofloxacin 750mg IV 750 MG/150 ML BAG IV ONE (21:22)
--- NOTE | 2021-05-27 22:01 | P.HP ---
Certification for Inpatient Patient admitted to: Inpatient With expected LOS: >2 Midnights Patient will require the following post-hospital care: None Practitioner: I am a practitioner with admitting privileges, knowledge of patient current condition, hospital course, and medical plan of care. Services: Services provided to patient in accordance with Admission requirements found in Title 42 Section 412.3 of the Code of Federal Regulations <Brissa Cole - Last Filed: 05/27/21 23:17> Patient History Date of Service: 05/27/21 Reason for admission: COPD/influenza History of Present Illness: Patient is a 71-year-old male with past medical history of COPD, hypertension, hyperlipidemia, type 2 diabetes who presented to the ED with shortness of breath that has been worsening for the past 5 days. He states that he had a recent exposure to influenza. His shortness of breath has not improved with his at home nebulizers and inhalers. He denies cough or fever. In the ED, labs significant for WBC 14.1, sodium 130, proBNP 632, Pro-Misael 0.1, positive influenza A. Chest x-ray showed chronic interstitial pattern that matches comparison, severity of chronic pattern could mask mild edema or infiltrate. Patient was oxygenating poorly in the ED and started on BiPAP. Initial EKG was worrisome for STEMI however repeat was negative. Patient was given full dose aspirin, DuoNebs, Solu-Medrol, morphine, full dose Lovenox, Tamiflu, mag sulfate, and Levaquin. Upon my assessment, saturation and breathing have improved. Will admit patient for further evaluation and treatment. - Past Medical/Surgical History Diabetic: No -: DM -: Asthma -: Arthritis -: COPD -: HTN -: HLD -: depresison -: Cyst removal from right side of neck - Family History Mother -: Heart disease, Diabetes Sister -: Diabetes, Cancer Father -: Cancer - Social History Smoking Status: Current every day smoker Alcohol use: No CD- Drugs: No Caffeine use: Yes Place of Residence: Home <Sandra Coleia - Last Filed: 05/27/21 23:17> Date of Service: 05/27/21 <Kiana Devine - Last Filed: 05/29/21 07:49> Allergies limestone Allergy (Uncoded 01/26/17 16:19) Itching/Hives/Rash Home Medications: Sertraline [Zoloft*] 100 mg PO BID 05/13/13 Simvastatin [Zocor*] 40 mg PO BEDTIME 05/13/13 Hydrocodone/Acetaminophen [[place] 5-325 Tablet] 1 each PO BIDP PRN 01/26/17 Triamterene/Hydrochlorothiazid [Triamterene-Hctz 37.5-25 mg Cp] 1 each PO DAILY 01/26/17 Albuterol Inhaler [Ventolin Inhaler*] 1 puff IN BID 01/22/21 Fluticasone/Umeclidin/Vilanter [Trelegy Ellipta 100-62.5-25] 1 puff IN DAILY 01/22/21 Metformin HCl 1,000 tab PO BID 01/22/21 Tamsulosin [Flomax*] 1 cap PO BEDTIME 01/22/21 Nebulizer and Compressor [Compressor Nebulizer System] 1 each MC PRN #1 each 01/23/21 Lisinopril [Zestril] 2.5 mg PO DAILY 05/28/21 Pregabalin [Lyrica] 25 mg PO BID 05/28/21 Albuterol Neb [Proventil 0.083% Neb Soln] 2.5 mg NEB [id number] #60 amp 05/29/21 Ipratropium Neb [Atrovent*] 0.5 mg NEB [id number] #60 amp 05/29/21 Oseltamivir Phosphate [Tamiflu] 30 mg PO BID #10 cap 05/29/21 levoFLOXacin [Levaquin*] 750 mg PO BEDTIME #5 tab 05/29/21 predniSONE [Deltasone] 20 mg PO BID #30 tab 05/29/21 Review of Systems General: Malaise, As per HPI Respiratory: Shortness of Breath, SOB with Excertion, As per HPI <Brissa Cole - Last Filed: 05/27/21 23:17> Physical Examination - Physical Exam General: Alert, In no apparent distress, Oriented x3 HEENT: Atraumatic, PERRLA, Mucous membr. moist/pink, EOMI, Sclerae nonicteric Neck: Supple, 2+ carotid pulse no bruit, No LAD, Without JVD or thyroid abnormality Respiratory: Crackles/rales, Expiratory wheezes Cardiovascular: Regular rate/rhythm, Normal S1 S2 Gastrointestinal: Normal bowel sounds, No tenderness Musculoskeletal: No tenderness Integumentary: No rashes Neurological: Normal speech, Normal strength at 5/5 x4 extr, Normal tone, Normal affect - Studies Laboratory Data (last 24 hrs) 05/27/21 19:33: PT 12.6 H, INR 1.14 05/27/21 19:33: WBC 14.1 H, Hgb 12.0 L, Hct 36.3 L, Plt Count 243 05/27/21 19:33: Sodium 130 L, Potassium 3.5, BUN 38 H, Creatinine 1.22, Glucose 106, Magnesium 1.9, Total Bilirubin 0.3, AST 27, ALT 18, Alkaline Phosphatase 70 <Brissa Cole - Last Filed: 05/27/21 23:17> - Studies Microbiology Data (last 24 hrs): 05/27/21 19:25 Blood - Blood Anaerobic Blood Culture - Final <Kiana Devine - Last Filed: 05/29/21 07:49> Assessment and Plan - Problems (Diagnosis) (1) Acute respiratory failure with hypoxia and hypercapnia Current Visit: Yes Status: Acute (2) Atrial flutter Current Visit: No Status: Chronic Qualifiers: Atrial flutter type: unspecified Qualified Code(s): I48.92 - Unspecified atrial flutter (3) COPD exacerbation Current Visit: Yes Status: Acute (4) Influenza A Current Visit: Yes Status: Acute (5) HLD (hyperlipidemia) Current Visit: No Status: Chronic Qualifiers: Hyperlipidemia type: mixed hyperlipidemia Qualified Code(s): E78.2 - Mixed hyperlipidemia (6) HTN (hypertension) Current Visit: Yes Status: Chronic Qualifiers: Hypertension type: primary hypertension Qualified Code(s): I10 - Essential (primary) hypertension (7) T2DM (type 2 diabetes mellitus) Current Visit: Yes Status: Chronic Qualifiers: Diabetes mellitus shelter insulin use: without exterminator helper termite use Diabetes mellitus complication status: with kidney complications Diabetes mellitus complication detail: with chronic kidney disease Chronic kidney disease stage: stage 3 (moderate) Chronic kidney disease stage 3 subtype: stage 3a (GFR 45- 59) Qualified Code(s): E11.22 - Type 2 diabetes mellitus with diabetic chronic kidney disease; N18.31 - Chronic kidney disease, stage 3a - Plan -Continue BiPAP as needed with continuous O2 monitoring -Dr. Caldwell consulted -Breathing treatments every 6 hours as needed -Daily chest x-ray ordered. CT chest if worsening symptoms -Solu-Medrol, Levaquin, and Tamiflu scheduled -ACHS Accu-Cheks with mild sliding scale -Morphine as needed pain, Zofran as needed nausea -Continue home medications as appropriate -Given full dose Lovenox in the ED. We will continue DVT prophylactic dose Discharge Plan: Home Plan to discharge in: Greater than 2 days - Advance Directives Does patient have a Living Will: No Does patient have a Durable POA for Healthcare: No - Code Status/Comfort Care Code Status Assessed: Yes (Full) Critical Care: No Time Spent Managing Pts Care (In Minutes): 50 <Brissa Cole - Last Filed: 05/27/21 23:17> Date of Service: 05/27/21 Subjective: HPI as mentioned above Physical Examination: Vitals: Afebrile vital signs are stable Physical exam: Cardiovascular: Within normal limits. Lungs: Diffuse wheezing Abdomen: Within normal limits Neuro: Awake, alert, oriented to person place and time Assessment: 1. Acute COPD exacerbation Plan: 1. Continue with current plan of care as mentioned above <Kiana Devine - Last Filed: 05/29/21 07:49>
[2021-05-27] MEDS ORDERED: ACETAMINOPHEN 500 MG TAB PO PRN (22:58)
[2021-05-27] MEDS ORDERED: Levofloxacin500mg IV 500 MG/100 ML BAG IV SCH (22:58)
[2021-05-27] MEDS ORDERED: ONDANSETRON 4 MG/2 ML VIAL IV PRN (22:58)
[2021-05-27] MEDS ORDERED: MORPHINE 2 MG/ML SYR IV PRN (22:58)
[2021-05-27 23:06] VITALS: BMI 24.0
[2021-05-28] MEDS: ALBUTEROL 2.5 MG/3 ML NEB SOL NEB SCH ×4 (00:30→20:40)
[2021-05-28] MEDS: IPRATROPIUM BROM 0.5MG/2.5ML NEB SCH ×4 (00:30→20:40)
[2021-05-28] MEDS ORDERED: IPRATROPIUM BROM 0.5MG/2.5ML ONE ×2 (00:32→09:08)
[2021-05-28] MEDS ORDERED: ALBUTEROL 2.5 MG/3 ML NEB SOL ONE ×2 (00:32→09:08)
[2021-05-28] MEDS: METHYLPREDNISOLONE 125 MG INJ IV SCH ×3 (00:42→12:18)
[2021-05-28] MEDS ORDERED: METHYLPREDNISOLONE 125 MG INJ ONE ×3 (00:44→12:21)
[2021-05-28 05:26] LABS: Absolute Lymphocytes (CBC) 0.8 K/uL (0.7-4.9); Hematocrit 33.2 % (39.6-49.0); Lymphocytes % 6.3 % (15.3-44.8); RBC Red Blood Cell Count 3.66 M/uL (4.33-5.43)
[2021-05-28 05:43] LABS: Bilirubin Total 0.2 mg/dL (0.2-1.0); Magnesium 2.3 mg/dL (1.8-2.4); Phosphorus 4.6 mg/dL (2.5-4.9); Potassium 3.8 mmol/L (3.5-5.1); Protein, Total 6.9 g/dL (6.4-8.2)
[2021-05-28] MEDS: INSULIN -REGULAR HUMAN 50 UNIT/0.5 ML ML SQ SCH ×5 (07:30→20:13)
--- NOTE | 2021-05-28 07:41 | RAD REPORT ---
EXAM DESCRIPTION: RAD - Chest Pa And Lat (2 Views) - 05/28/2021 5:26 am CLINICAL HISTORY: COPD COMPARISON: 01/26/2017, 05/27/2021 TECHNIQUE: PA and lateral views of the chest were obtained. FINDINGS: The lungs are clear. Heart size is normal and central vasculature is within normal limits. No pleural effusion or pneumothorax seen. No acute bony finding noted. Emphysema. Calcified pulmonar y nodules noted. IMPRESSION: Emphysema without superimposed acute process identified.
--- NOTE | 2021-05-28 08:07 | EKG ---
Test Date: 2021-05-27 Test Time: 18:33:07 Offender Employment Specialist: SOFÍA MEASUREMENT RESULTS: Intervals: Rate: 105 [place]: 146 QRSD: 132 QT: 328 QTc: 433 [place]: P: 73 [place]: 146 QRS: 86 T: 82 INTERPRETIVE STATEMENTS: Sinus tachycardia with fusion complexes Right bundle branch block ST elevation, consider inferior injury or acute infarct ACUTE MN Consider right ventricular involvement in acute inferior infarct Abnormal ECG Compared to ECG 01/21/2021 19:45:59 Fusion complex(es) now present ST (T wave) deviation now present Myocardial infarct finding now present Myocardial infarct finding now present Atrial flutter no longer present Electronically Signed On 05-28-21 08:06:52 CDT by Parvez Regalado
[2021-05-28] MEDS: ENOXAPARIN 40 MG/0.4 ML SQ SCH (08:56)
[2021-05-28] MEDS ORDERED: ENOXAPARIN 40 MG/0.4 ML SQ ONE (08:57)
[2021-05-28] MEDS ORDERED: OSELTAMIVIR PHOSPHATE 30 MG/5 ML SUSPENSION UD ONE (08:58)
[2021-05-28] MEDS ORDERED: OSELTAMIVIR 75 MG CAP PO SCH (09:00)
[2021-05-28] MEDS: OSELTAMIVIR 30 MG CAP PO SCH ×2 (11:05→20:13)
[2021-05-28] MEDS ORDERED: INSULIN -REGULAR HUMAN 50 UNIT/0.5 ML ML ONE (11:56)
--- NOTE | 2021-05-28 12:35 | P.CNS ---
Date of Consult: 05/28/21 Reason for Consult: COPD exacerbation Chief Complaint: COPD/influenza History of Present Illness: Patient is 71 years of age with a history of COPD recurrent exacerbation metabolic syndrome got flu from his grandchild became worse since last worsening dyspnea short of breath cough doing somewhat better Allergies limestone Allergy (Uncoded 01/26/17 16:19) Itching/Hives/Rash Home Medications: Sertraline [Zoloft*] 100 mg PO BID 05/13/13 Simvastatin [Zocor*] 40 mg PO BEDTIME 05/13/13 Hydrocodone/Acetaminophen [[place] 5-325 Tablet] 1 each PO BIDP PRN 01/26/17 Triamterene/Hydrochlorothiazid [Triamterene-Hctz 37.5-25 mg Cp] 1 each PO DAILY 01/26/17 Albuterol Inhaler [Ventolin Inhaler*] 1 puff IN BID 01/22/21 Fluticasone/Umeclidin/Vilanter [Trelegy Ellipta 100-62.5-25] 1 puff IN DAILY Metformin HCl 1 tab PO DAILY 01/22/21 Tamsulosin [Flomax*] 1 cap PO BEDTIME 01/22/21 Albuterol Neb [Proventil 0.083% Neb Soln] 2.5 mg NEB [id number] #30 amp 01/23/21 Apixaban [Eliquis] 5 mg PO BID tablet 01/23/21 Benzonatate [Tessalon Perle*] 100 mg PO TID PRN #10 cap 01/23/21 Nebulizer and Compressor [Compressor Nebulizer System] 1 each MC PRN #1 each 01/23/21 levoFLOXacin [Levaquin*] 500 mg PO DAILY #5 tab 01/23/21 - Past Medical/Surgical History Diabetic: No -: DM -: Asthma -: Arthritis -: COPD -: HTN -: HLD -: depresison -: Cyst removal from right side of neck - Family History Mother Medical History: Heart disease, Diabetes Sister Medical History: Diabetes, Cancer Father Medical History: Cancer - Social History Smoking Status: Current every day smoker Alcohol use: No CD- Drugs: No Caffeine use: Yes Place of Residence: Home Review of Systems General: Weakness Respiratory: Cough, Shortness of Breath Physical Examination Temp Pulse Resp BP Pulse Ox 98.2 F 70 20 118/49 L 93 05/28/21 12:00 05/28/21 12:00 05/28/21 12:00 05/28/21 12:00 05/28/21 12:00 General: Alert, Oriented x3, Mild distress Respiratory: Expiratory wheezes Cardiovascular: No edema, Regular rate/rhythm Laboratory Data (last 24 hrs) 05/27/21 19:33: PT 12.6 H, INR 1.14 05/27/21 19:33: WBC 14.1 H, Hgb 12.0 L, Hct 36.3 L, Plt Count 243 05/27/21 19:33: Sodium 130 L, Potassium 3.5, BUN 38 H, Creatinine 1.22, Glucose 106, Magnesium 1.9, Total Bilirubin 0.3, AST 27, ALT 18, Alkaline Phosphatase 70 - Problems (1) COPD exacerbation Current Visit: Yes Status: Acute Plan: Patient is 71 years of age admitted with COPD exacerbation chest x-ray shows COPD prominent right hilum mildly anemic worsening renal function vital signs stable oxygenation satisfactory change to p.o. levofloxacin reduce dose of Solu- Medrol continue with bronchodilators check ABGs
[2021-05-28 15:57] LABS: Arterial Blood Carboxyhemoglob 0.9 % (0-1.5); Blood Gas Oxyhemoglobin 88.8 % (94-97); Blood O2 Saturation 90.4 % (92-98.5)
[2021-05-28] MEDS: METHYLPREDNISOLONE 40 MG INJ IV SCH (16:22)
[2021-05-28] MEDS ORDERED: levoFLOXacin 750 MG TAB PO SCH (21:00)
[2021-05-28 22:20] VITALS: O2SAT 97
[2021-05-29] MEDS: METHYLPREDNISOLONE 40 MG INJ IV SCH ×3 (00:39→16:05)
[2021-05-29] MEDS: ALBUTEROL 2.5 MG/3 ML NEB SOL NEB SCH ×3 (02:00→14:12)
[2021-05-29] MEDS: IPRATROPIUM BROM 0.5MG/2.5ML NEB SCH ×3 (02:00→14:12)
[2021-05-29 03:53] LABS: Absolute Lymphocytes (CBC) 1.4 K/uL (0.7-4.9); Hematocrit 33.8 % (39.6-49.0); Lymphocytes % 10.4 % (15.3-44.8); MPV 7.3 fL (7.6-11.3); RBC Red Blood Cell Count 3.72 M/uL (4.33-5.43)
[2021-05-29 04:34] LABS: Bilirubin Total 0.2 mg/dL (0.2-1.0); Potassium 4.1 mmol/L (3.5-5.1); Protein, Total 6.8 g/dL (6.4-8.2)
[2021-05-29] MEDS: INSULIN -REGULAR HUMAN 50 UNIT/0.5 ML ML SQ SCH ×3 (07:20→16:05)
--- NOTE | 2021-05-29 07:45 | P.PN ---
Date of Service: 05/28/21 Subjective Patient is starting to feel a little bit better. Respiratory status has improved. Still with some wheezing and dyspnea on exertion. Physical Examination - Physical Exam General: Alert, In no apparent distress, Oriented x3 HEENT: Atraumatic, PERRLA, Mucous membr. moist/pink, EOMI, Sclerae nonicteric Neck: Supple, 2+ carotid pulse no bruit, No LAD, Without JVD or thyroid abnorm ality Respiratory: Crackles/rales, Expiratory wheezes Cardiovascular: Regular rate/rhythm, Normal S1 S2 Gastrointestinal: Normal bowel sounds, No tenderness Neurological: Normal speech, Normal strength at 5/5 x4 extr, Normal tone, Normal affect Assessment and Plan - Problems (Diagnosis) (1) Acute respiratory failure with hypoxia and hypercapnia Current Visit: Yes Status: Acute (2) Atrial flutter Current Visit: No Status: Chronic Qualifiers: Atrial flutter type: unspecified Qualified Code(s): I48.92 - Unspecified atrial flutter (3) COPD exacerbation Current Visit: Yes Status: Acute (4) Influenza A Current Visit: Yes Status: Acute (5) HLD (hyperlipidemia) Current Visit: No Status: Chronic Qualifiers: Hyperlipidemia type: mixed hyperlipidemia Qualified Code(s): E78.2 - Mixed hyperlipidemia (6) HTN (hypertension) Current Visit: Yes Status: Chronic Qualifiers: Hypertension type: primary hypertension Qualified Code(s): I10 - Essential (primary) hypertension (7) T2DM (type 2 diabetes mellitus) Current Visit: Yes Status: Chronic Qualifiers: Diabetes mellitus buttermaker continuous churn insulin use: without buttermaker continuous churn use Diabetes mellitus complication status: with kidney complications Diabetes mellitus complication detail: with chronic kidney disease Chronic kidney disease stage: stage 3 (moderate) Chronic kidney disease stage 3 subtype: stage 3a (GFR 45- 59) Qualified Code(s): E11.22 - Type 2 diabetes mellitus with diabetic chronic kidney disease; N18.31 - Chronic kidney disease, stage 3a - Plan Plan: 1. Continue with albuterol and Atrovent nebs 2. Continue with IV steroids 3. Outpatient pulmonary function testing 4. Pulmonary consultation appreciated 5. Room air O2 sats 6. Repeat chest x-ray in the morning 7. Peak flows as needed 8. GI and DVT prophylaxis Discharge Plan: Home Plan to discharge in: Greater than 2 days - Advance Directives Does patient have a Living Will: No Does patient have a Durable POA for Healthcare: No - Code Status/Comfort Care Code Status Assessed: Yes (Full) Critical Care: No Time Spent Managing Pts Care (In Minutes): 50
--- NOTE | 2021-05-29 07:52 | P.DS ---
Discharge Date: 05/29/21 Disposition: ROUTINE DISCHARGE Discharge Condition: GOOD Reason for Admission: COPD/influenza Consultations: Pulmonary Brief History of Present Illness: Patient is a 71-year-old male with past medical history of COPD, hypertension, hyperlipidemia, type 2 diabetes who presented to the ED with shortness of breath that has been worsening for the past 5 days. He states that he had a recent exposure to influenza. His shortness of breath has not improved with his at home nebulizers and inhalers. He denies cough or fever. In the ED, labs significant for WBC 14.1, sodium 130, proBNP 632, Pro-Misael 0.1, positive influenza A. Chest x-ray showed chronic interstitial pattern that matches comparison, severity of chronic pattern could mask mild edema or infiltrate. Patient was oxygenating poorly in the ED and started on BiPAP. Initial EKG was worrisome for STEMI however repeat was negative. Patient was given full dose aspirin, DuoNebs, Solu-Medrol, morphine, full dose Lovenox, Tamiflu, mag s ulfate, and Levaquin. Upon my assessment, saturation and breathing have improved. Will admit patient for further evaluation and treatment. Hospital Course: Patient was treated with nebs, steroids, and antibiotics. Patient clinical symptoms are improved. At this time, patient is stable for discharge. Patient will have his room air oxygen saturations monitored. If it is less than 89% we will try to get him set up with home oxygen. He will need outpatient follow-up with pulmonary. At this time, patient is stable for discharge home. Vital Signs/Physical Exam: Temp Pulse Resp BP Pulse Ox 97.2 F 73 19 138/43 L 97 05/29/21 03:59 05/29/21 03:59 05/29/21 03:59 05/29/21 03:59 05/29/21 03:59 General: Alert, In no apparent distress, Oriented x3 Laboratory Data at Discharge: WBC 13.1 K/uL (4.3-10.9) H 05/29/21 03:24 Hgb 11.1 g/dL (13.6-17.9) L 05/29/21 03:24 Hct 33.8 % (39.6-49.0) L 05/29/21 03:24 Plt Count 256 K/uL (152-406) 05/29/21 03:24 PT 12.6 SECONDS (9.5-12.5) H 05/27/21 19:33 INR 1.14 05/27/21 19:33 Sodium 138 mmol/L (136-145) 05/29/21 03:24 Potassium 4.1 mmol/L (3.5-5.1) 05/29/21 03:24 BUN 46 mg/dL (7-18) H 05/29/21 03:24 Creatinine 1.31 mg/dL (0.55-1.3) H 05/29/21 03:24 Glucose 118 mg/dL (74-106) H 05/29/21 03:24 Phosphorus 4.6 mg/dL (2.5-4.9) 05/28/21 05:04 Magnesium 2.3 mg/dL (1.8-2.4) 05/28/21 05:04 Total Bilirubin 0.2 mg/dL (0.2-1.0) 05/29/21 03:24 AST 30 U/L (15-37) 05/29/21 03:24 ALT 21 U/L (12-78) 05/29/21 03:24 Alkaline Phosphatase 59 U/L (45-117) 05/29/21 03:24 Home Medications: Sertraline [Zoloft*] 100 mg PO BID 05/13/13 Simvastatin [Zocor*] 40 mg PO BEDTIME 05/13/13 Hydrocodone/Acetaminophen [[place] 5-325 Tablet] 1 each PO BIDP PRN 01/26/17 Triamterene/Hydrochlorothiazid [Triamterene-Hctz 37.5-25 mg Cp] 1 each PO DAILY 01/26/17 Albuterol Inhaler [Ventolin Inhaler*] 1 puff IN BID 01/22/21 Fluticasone/Umeclidin/Vilanter [Trelegy Ellipta 100-62.5-25] 1 puff IN DAILY 01/22/21 Metformin HCl 1,000 tab PO BID 01/22/21 Tamsulosin [Flomax*] 1 cap PO BEDTIME 01/22/21 Nebulizer and Compressor [Compressor Nebulizer System] 1 each PRN #1 each 01/23/21 Lisinopril [Zestril] 2.5 mg PO DAILY 05/28/21 Pregabalin [Lyrica] 25 mg PO BID 05/28/21 Albuterol Neb [Proventil 0.083% Neb Soln] 2.5 mg NEB [id number] #60 amp 05/29/21 Ipratropium Neb [Atrovent*] 0.5 mg NEB [id number] #60 amp 05/29/21 Oseltamivir Phosphate [Tamiflu] 30 mg PO BID #10 cap 05/29/21 levoFLOXacin [Levaquin*] 750 mg PO BEDTIME #5 tab 05/29/21 predniSONE [Deltasone] 20 mg PO BID #30 tab 05/29/21 New Medications: Ipratropium Neb [Atrovent*] 0.5 mg NEB [id number] #60 amp levoFLOXacin [Levaquin*] 750 mg PO BEDTIME #5 tab predniSONE [Deltasone] 20 mg PO BID #30 tab Albuterol Neb [Proventil 0.083% Neb Soln] 2.5 mg NEB [id number] #60 amp Oseltamivir Phosphate [Tamiflu] 30 mg PO BID #10 cap Physician Discharge Instructions: -DC IV and DC home -Follow-up with PCP in 1 to 2 weeks -Follow-up with Pulmonary in 1 to 2 weeks -Please call Dr. Devine at [phone] if any questions regarding hospital stay -Please call nursing station at [phone] if any nursing or medication questions -Return to the emergency room if symptoms worsen Diet: AHA Activity: Fall precautions Followup: Uri Maldonado DO [Primary Care Provider] - Time spent managing pt's care (in minutes): 35
--- NOTE | 2021-05-29 07:57 | EKG ---
Test Date: 2021-05-27 Test Time: 20:51:51 Bottle Dealer: PATEL MEASUREMENT RESULTS: Intervals: Rate: 86 [place]: 168 QRSD: 142 QT: 366 QTc: 437 [place]: P: 78 VT: 168 QRS: 66 T: 73 INTERPRETIVE STATEMENTS: Sinus rhythm with fusion complexes Right bundle branch block Abnormal ECG Compared to ECG 05/27/2021 18:33:07 Sinus tachycardia no longer present ST (T wave) deviation no longer present Myocardial infarct finding no longer present Myocardial infarct finding no longer present Electronically Signed On 05-29-21 07:55:34 CDT by Parvez Regalado
[2021-05-29] MEDS: ENOXAPARIN 40 MG/0.4 ML SQ SCH (08:38)
[2021-05-29] MEDS: OSELTAMIVIR 30 MG CAP PO SCH (08:38)
[2021-05-29 12:03] VITALS: TEMP 97.9
[2021-05-29 16:01] VITALS: BP 143/65
== END 2021-05-29 16:30 | disposition home or self-care (01) | DRG 189 ==
LOC: ER 18:09 → ERHOLD 21:51 → 4TH 05-28 13:13
PROVIDERS: ADMIT Hospitalist; ATTEND Hospitalist
PROC: 5A09357 Assistance with Respiratory Ventilation, Less than 24 Consecutive Hours, Continuous Positive Airway Pressure (ICD-10-PCS; principal; 2021-05-27)
DX: J96.02 Acute respiratory failure with hypercapnia (principal); J44.1 Chronic obstructive pulmonary disease with (acute) exacerbation; I48.92 Unspecified atrial flutter; J96.01 Acute respiratory failure with hypoxia; I12.9 Hypertensive chronic kidney disease with stage 1 through stage 4 chronic kidney disease, or unspecified chronic kidney disease; E11.22 Type 2 diabetes mellitus with diabetic chronic kidney disease; N18.31 Chronic kidney disease, stage 3a; E78.2 Mixed hyperlipidemia; J10.1 Influenza due to other identified influenza virus with other respiratory manifestations; F17.210 Nicotine dependence, cigarettes, uncomplicated; Z20.822 Contact with and (suspected) exposure to COVID-19
CPT/HCPCS: 0240U; 36415; 71045; 71046; 80048; 80053; 80076; 82805; 82947; 83605; 83735; 83880; 84100; 84145; 84484; 85025; 85610; 87040; 87205; 93005; 94640; 94660; 94760; 96372; 96374; 96375; 99285; J1650; J1815; J2405; J2920; J2930; J3475

== ENCOUNTER 2021-10-21 20:57 | Inpatient (IN) | payer OTHER ==
--- OUTSIDE RECORDS SUMMARY | 2021-10-21 21:00 | XMS REPORT | Continuity of Care Document ---
:1950 Author Organization [facility] t Address [address] [place] [address] Care Team Providers Name Role Phone Uri Maldonado Attending Clinician Unavailable Problems This patient has no known problems. Allergies, Adverse Reactions, Alerts This patient has no known allergies or adverse reactions. Medications Ordered Filled Start Stop Current Ordering Indication Dosage Frequency Signature Comments Components Source Medication Medication Date Date Medication? Clinician (SIG) Name Name Bactrim DS Bactrim DS 2019- No Kaylee 1 tablet Common 10-[address] [facility] 00:00: [facility] 00 :00 [facility] Tamsulosin Tamsulosin 2020- No Kaylee 1 capsule Common HCl HCl 09-[facility] 00:00: [facility] 00 :00 [facility] Flonase Flonase Yes Kaylee 1 spray in Co mmon Chen each Spirit nostril - [facility] Metformin Metformin Yes Kaylee TAKE [address] HCl HCl [address] [facility] TABLET BY Spirit MOUTH - [facility] TWICE A St DAY WITH [facility] Triamterene Triamterene Yes Kaylee 1 tablet Common -HCTZ -HCTZ [facility] in the [facility] morning - [facility] Zoloft Zoloft Yes Kaylee 2 tablets Commo n Chen [facility] Trelegy Trelegy Yes Kaylee INHALE [address] [facility] PUFF BY Sp eliza MOUTH - [facility] EVERY DAY [facility] PredniSONE PredniSONE Yes Kaylee 1 tablet Common Chen [facility] Sertraline Sertraline Yes Kaylee TAKE 2 Common HCl HCl Chen TABLETS [facility] ONCE DAILY [facility] Simvastatin Simvastatin Yes Kaylee TAKE 1 Common Chen TABLET BY Spirit MOUTH - [facility]I EVERY DAY St IN THE [facility] Jandiogo Marrero Yes Kaylee TAKE [address] [facility] TABLET [facility] ONCE DAILY [facility] Albuterol Albuterol Yes Kaylee 2 puffs as Common Sulfate HFA Sulfate HFA Chen needed [facility] Pregabalin Pregabalin Yes Kaylee 1 capsule Common Chen 1 to 3 Spirit hours - [facility]I before St bedtime in [facility] [place] Yes Kaylee 1 tablet Common Chen as needed [facility] Lisinopril Lisinopril Yes Kaylee 1 tablet Common Chen [facility] Simvastatin Simvastatin Yes Kaylee 1 tablet Common Chen in the [facility] evening - [facility] Baclofen Baclofen Yes Kaylee not Common Chen defined [facility] Procedures This patient has no known procedures. Encounters Start End Encounter Admission Attending Care Care Encounter Source Date/Time Date/Time Type Type Clinicians Facility Department ID 2021-03-05 Out[facility] Maldonado, [facility] [id number] Common 12:35:45 Uri [id number] [facility] 2021-03-05 Out[facility] Maldonado, [facility] [id number] Common 12:12:17 Uri [id number] [facility] 2021-03-05 Outpatient Maldonado, [facility] [id number] Common 11:46:55 Uri [id number] [facility] 2021-03-05 [facility] [id number] Common 11:25:09 Uri [id number] [facility] 2021-03-05 Outpatient Maldonado, [facility] [id number] Common 11:16:20 Uri [id number] [facility] 2021-03-05 Outpatient Maldonado, [facility] [id number] Common 11:07:31 Uri [id number] [facility] 2021-03-05 Outpatient Maldonado, [facility] [id number] Common 11:02:46 [facility] [id number] [facility] 2021-09-04 2021-09-04 ambulatory [facility] [id number] Common 00:00:00 00:00:00 [facility] 2021-09-04 2021-09-04 ambulatory [facility] [id number] Common 00:00:00 00:00:00 [facility] 2021-09-04 2021-09-04 ambulatory [facility] [id number] Common 00:00:00 00:00:00 [facility] 2021-07-31 2021-07-31 ambulatory [facility] [id number] Common 00:00:00 00:00:00 [facility] 2021-05-27 2021-05-27 ambulatory [facility] [id number] Common 00:00:00 00:00:00 [facility] 2021-05-27 2021-05-27 ambulatory [facility] [id number] Common 00:00:00 00:00:00 [facility] 2021-02-10 2021-02-10 ambulatory [facility] [id number] Common 00:00:00 00:00:00 [facility] 2021 2021 ambulatory [facility] [id number] Common 00:00:00 00:00:00 [facility] 2021-01-23 2021-01-23 ambulatory [facility] [id number] Common 00:00:00 00:00:00 [facility] 2020-11-14 2020-11-14 Outpatient [facility] [id number] Common 00:00:00 00:00:00 [facility] 2020-11-14 2020-11-14 Outpatient [facility] [id number] Common 00:00:00 00:00:00 [facility] 2020-08-13 2020-08-13 Outpatient [facility] [id number] Common 00:00:00 00:00:00 [facility] 2020-06-11 2020-06-11 Outpatient [facility] [id number] Common 00:00:00 00:00:00 [facility] 2020-04-23 2020-04-23 Outpatient [facility] [id number] Common 00:00:00 00:00:00 [facility] 2020-04-16 2020-04-16 Outpatient [facility] [id number] Common 00:00:00 00:00:00 [facility] 2020-04-15 2020-04-15 Outpatient [facility] [id number] Common 00:00:00 00:00:00 [facility] 2020-01-17 2020-01-17 Outpatient [facility] [id number] Common 00:00:00 00:00:00 [facility] 2020-01-15 2020-01-15 Outpatient [facility] [id number] Common 00:00:00 00:00:00 [facility] 2019-11-30 2019-11-30 Outpatient [facility] [id number] Common 00:00:00 00:00:00 [facility] 2019-11-16 2019-11-16 Outpatient [facility] [id number] Common 00:00:00 00:00:00 [facility] 2019-10-26 2019-10-26 [id number] Common 10:15:00 10:15:00 t Specialty/U Sp eliza Specialty rology - [facility] /[facility] Clinic [facility] 2019-10-18 2019-10-18 [facility] [id number] Common 11:40:00 11:40:00 t [employer] it [facility] 2019-10-10 2019-10-10 [facility] [id number] Common 09:00:00 09:00:00 t Specialty/U Sp eliza Specialty rology - [facility] /[facility] 2019-09-27 2019-09-27 [facility] [id number] Common 10:00:00 10:00:00 t Specialty/U Sp eliza Specialty rology - [facility] 2019-09-26 2019-09-26 [facility] [id number] Common 11:15:00 11:15:00 t Specialty/U Sp eliza Specialty rology - [facility] /[facility] 2019-09-06 2019-09-06 [facility] [id number] Common 14:14:00 14:14:00 t Specialty/U Sp eliza Specialty rology - [facility] 2019-08-09 2019-08-09 [facility] [id number] Common 10:30:00 10:30:00 t Specialty/U Sp eliza Specialty rology - [facility] /[facility] 2019-08-07 2019-08-07 [facility] [id number] Common 09:45:00 09:45:00 t Specialty/U Sp eliza Specialty rology - [facility] /[facility] 2019-07-31 2019-07-31 [facility] [id number] Common 09:29:00 09:29:00 t Specialty/U Sp eliza Specialty rology - [facility] /[facility] 2019-07-27 2019-07-27 [facility] [id number] Common 13:45:00 13:45:00 t Specialty/U Sp eliza Specialty rology - [facility] 2019-07-24 2019-07-24 [facility] [id number] Common 08:08:00 08:08:00 t [employer] [facility] it [facility] 2019-07-18 2019-07-18 [facility] [id number] Common 10:30:00 10:30:00 t [employer] [facility] it [facility] 2019-07-04 2019-07-04 [facility] [id number] Common 14:52:00 14:52:[address] [facility] [facility] 2019-04-13 2019-04-13 [facility] [id number] Common 09:15:00 09:15:[address] [facility] 2019-04-13 2019-04-13 [facility] [id number] Common 09:00:00 09:00:[address] [facility] 2019-03-29 2019-03-29 [facility] [id number] Common 15:50:00 15:50:[address] [facility] 2018-12-27 2018-12-27 [facility] [id number] Common 16:30:00 16:30:[address] [facility] 2018-12-19 2018-12-19 [facility] [id number] Common 16:47:00 16:47:[address] [facility] 2018-12-19 2018-12-19 [facility] [id number] Common 16:04:00 16:04:[address] [facility] 2018-10-05 2018-10-05 [facility] [id number] Common 16:53:00 16:53:[address] [facility] 2018-10-03 2018-10-03 [facility] [id number] Common 14:09:00 14:09:[address] [facility] 2018-08-02 2018-08-02 [facility] [id number] Common 10:00:00 10:00:[address] [facility] 2018-06-14 2018-06-14 [facility] [id number] Common 10:36:00 10:36:[address] [facility] 2018-04-20 2018-04-20 [facility] [id number] Common 08:30:00 08:30:[address] [facility] 2018-01-20 2018-01-20 [facility] [id number] Common 08:30:00 08:30:[address] [facility] 2018-01-19 2018-01-19 [facility] [id number] Common 10:01:00 10:01:[address] [facility] 2017-11-02 2017-11-02 [facility] [id number] Common 13:45:00 13:45:[address] [facility] 2017-08-10 2017-08-10 [facility] [id number] Common 14:45:00 14:45:[address] [facility] 2017-05-28 2017-05-28 [facility] [id number] Common 10:15:00 10:15:[address] [facility] Results This patient has no known results.
[2021-10-21] MEDS ORDERED: LEVALBUTEROL 1.25 MG/3 ML NEB ONE (21:24)
[2021-10-21] MEDS ORDERED: METHYLPREDNISOLONE 125 MG INJ ONE (21:24)
--- NOTE | 2021-10-21 22:10 | RAD REPORT ---
EXAM DESCRIPTION: RAD - Chest Single View - 10/21/2021 9:54 pm CLINICAL HISTORY: SOB Chest pain. COMPARISON: Chest Pa And Lat (2 Views) dated 05/28/2021; Chest Single View dated 05/27/2021; Chest Sin gle View dated 01/21/2021; Chest Single View dated 01/26/2017 FINDINGS: Portable technique limits examination quality. Prominent emphysema is noted. Reticular opacities are noted in the right lung base, greatest medially , suspicious for an infection/pneumonia. The heart is mildly prominent size. No displaced fractures.
[2021-10-21 22:41] LABS: Absolute Lymphocytes (CBC) 1.3 K/uL (0.7-4.9); Hematocrit 34.3 % (39.6-49.0); Lymphocytes % 8.3 % (15.3-44.8); MCV 87.3 fL (80-100); MPV 6.9 fL (7.6-11.3); RBC Red Blood Cell Count 3.93 M/uL (4.33-5.43)
[2021-10-21 22:42] LABS: Protime INR 1.29
[2021-10-21 23:01] LABS: Albumin 3.6 g/dL (3.4-5.0); Bilirubin Direct 0.2 mg/dL (0-0.2); Bilirubin Total 0.5 mg/dL (0.2-1.0); Potassium 4.2 mmol/L (3.5-5.1); Protein, Total 7.9 g/dL (6.4-8.2); Troponin High Sensitivity 10.5 pg/mL (<58.9)
[2021-10-21 23:12] LABS: Arterial Blood Carboxyhemoglob 1.7 % (0-1.5); Blood Gas Oxyhemoglobin 93.3 % (94-97); Blood O2 Saturation 96.2 % (92-98.5)
--- NOTE | 2021-10-21 23:45 | ER ---
Nurse's Notes [facility] Krista Name: Jose Marcelino Age: 71 yrs Sex: Male : 1950 Arrival Date: 10/21/2021 Time: 20:58 Bed 8 Private MD: Diagnosis: Other pneumonia, unspecified organism Presentation: 10/21 21:06 Chief complaint: Patient states: SOB with wheezing present; RN called to triage. as6 Coronavirus screen: Vaccine status: Patient reports receiving the 2nd dose of the covid vaccine. Client denies travel out of the [place] in the last 14 days. Ebola Screen: Patient negative for fever greater than or equal to 101.5 degrees Fahrenheit, and additional compatible Ebola Virus Disease symptoms Patient denies exposure to infectious person. Patient denies travel to an Ebola-affected area in the 21 days before illness onset. Initial Sepsis Screen: Does the patient meet any 2 criteria? RR > 20 per min. HR > 90 bpm. Does the patient have a suspected source of infection? Yes: Productive cough/pneumonia. Risk Assessment: Do you want to hurt yourself or someone else? Patient reports no desire to harm self or others. Onset of symptoms was October 20, 2021. 21:06 Method Of Arrival: Ambulatory as6 21:06 Acuity: PHUC 2 as6 Triage Assessment: 21:07 General: Appears distressed, uncomfortable, unkempt, Behavior is calm, cooperative, as6 appropriate for age. Pain: Denies pain. Respiratory: Reports shortness of breath at rest cough that is productive, air hunger labored breathing the patient has moderate shortness of breath. 22:12 Respiratory: Onset: The symptoms/episode began/occurred at an unknown time. eh3 Historical: - Allergies: 10/22 01:53 No Known Allergies; aa9 - PMHx: 10/21 21:07 Chronic obstructive lung disease; diabetes mellitus; Hypertensive disorder; as6 - Immunization history:: Adult Immunizations up to date. - Social history:: Smoking status: Patient reports the use of cigarette tobacco products, smokes one pack cigarettes per day. Screenin:30 Abuse screen: Denies threats or abuse. Denies injuries from another. Nutritional eh3 screening: No deficits noted. Tuberculosis screening: No symptoms or risk factors identified. Fall Risk Secondary diagnosis (15 points) IV access (20 points). Gait- Weak (10 pts.). Total [place] Fall Scale indicates High Risk Score (45 or more points). Fall prevention measures have been instituted. Side Rails Up X 2 Placed Close to Nursing Station Frequent Obs/Assessments Occuring As available patient and family educated on Fall Prevention Program and Strategies. Assessment: 21:30 General: Appears in no apparent distress. uncomfortable, Behavior is calm, cooperative, eh3 appropriate for age. Neuro: Level of Consciousness is awake, alert, obeys commands, Oriented to person, place, time, situation. Cardiovascular: Rhythm is sinus tachycardia. Respiratory: Airway is patent Respiratory effort is even, labored, shallow, Breath sounds with crackles bilaterally. 22:30 Reassessment: Patient and/or family updated on plan of care and expected duration. Pain eh3 level reassessed. Patient is alert, oriented x 3, equal unlabored respirations, skin warm/dry/pink. 10/22 01:54 General: attempted to call report for room 422, will call again in 15 minutes. . aa9 Vital Signs: 10/21 21:06 Resp 30; Temp 98.6; Pulse Ox 86% on R/A; Weight 68.04 kg; Height 5 ft. 7 in. (170.18 as6 cm); Pain 0/10; 21:30 BP 116 / 78; Pulse 108; Resp 19; Pulse Ox 98% on 3 lpm NC; eh3 22:00 BP 117 / 72; Pulse 105; Resp 22; Pulse Ox 97% on 3 lpm NC; eh3 10/22 01:55 BP 128 / 60; Pulse 77; Resp 18 A; Pulse Ox 100% on BiPAP; aa9 10/21 21:06 Body Mass Index 23.49 (68.04 kg, 170.18 cm) as6 ED Course: 10/21 20:58 Patient arrived in ED. bp1 21:06 Emeka Hernandez PA is PHCP. cp 21:06 Jose Albright MD is Attending Physician. cp 21:07 Triage completed. as6 21:07 Arm band placed on right wrist. as6 21:28 Kinjal Cesar, RN is Primary Nurse. eh3 21:30 Patient has correct armband on for positive identification. Placed in gown. Bed in low eh3 position. Call light in reach. Side rails up X2. Client placed on continuous cardiac and pulse oximetry monitoring. NIBP monitoring applied. Door closed. Noise minimized. Warm blanket given. 21:30 COVID-19 SARS RT PCR (Document "Date of Onset" if Symptomatic) Sent. ld1 21:30 No provider procedures requiring assistance completed. eh3 21:31 Inserted saline lock: 20 gauge in left upper arm, using aseptic technique. ld1 21:54 Influenza Screen (a \\T\\ B) Sent. ld1 21:54 COVID-19 SARS RT PCR (Document "Date of Onset" if Symptomatic) Sent. ld1 21:55 XRAY Chest (1 view) In Process Unspecified. EDMS 23:44 Connor Weisntein MD is Hospitalizing Provider. 10/22 02:00 Patient admitted, IV remains in place. aa9 Administered Medications: 10/21 21:30 Drug: Xopenex (levalbuterol) (3) 1.25 mg Route: Inhalation; ld1 21:55 Follow up: Response: No adverse reaction ld1 21:30 Drug: SOLU-Medrol (methylPrednisoLONE) 125 mg Route: IVP; Site: left upper arm; ld1 21:54 Follow up: Response: No adverse reaction ld1 10/22 00:01 Drug: LevaQUIN (levofloxacin) 750 mg Volume: 150 ml; Route: IVPB; Infused Over: 90 eh3 mins; Site: left antecubital; Medication: 10/21 22:06 VIS not applicable for this client. eh3 Outcome: 23:44 Decision to Hospitalize by Provider. 10/22 01:59 Admitted to Tele accompanied by nurse, via stretcher, room 422, with chart, Report aa9 called to Louise Condition: stable 02:30 Patient left the ED. aa9 Signatures: Dispatcher [employer] EDMS Emeka Hernandez PA PA cp Cristela Montalvo Lauren RN RN ld1 Caden Nieto, RAMON NAVARRO as6 Kinjal Cesar, RAMON RN eh3 Amalia Serna, RN RN aa9 Corrections: (The following items were deleted from the chart) 10/21 22:09 22:06 General: Appears in no apparent distress. uncomfortable, Behavior is calm, eh3 cooperative, appropriate for age, eh3 22:09 22:06 Cardiovascular: Rhythm is sinus tachycardia [place] [id number] 22:06 Respiratory: Airway is patent Respiratory effort is even, labored, shallow, [place] [id number] 22:06 Neuro: Level of Consciousness is awake, alert, obeys commands, Oriented to [facility] person, place, time, situation, [facility] : 22:06 Abuse screen: Denies threats or abuse. Denies injuries from another. [place] [id number] 22: Nutritional screening: No deficits noted. [place] [address] 22: Tuberculosis screening: No symptoms or risk factors identified. [place] [id number] : 22:06 Fall Risk Secondary diagnosis (15 points) IV access (20 points). Gait- Weak (10 [facility] pts.). Total [place] Fall Scale indicates High Risk Score (45 or more points). Fall prevention measures have been instituted. Side Rails Up X 2 Placed Close to Nursing Station Frequent Obs/Assessments Occuring As available patient and family educated on Fall Prevention Program and Strategies. city [facility] : Patient has correct armband on for positive identification. Placed in gown. Bed [facility] in low position. Call light in reach. Side rails up X2. [facility] 22:06 Client placed on continuous cardiac and pulse oximetry monitoring. NIBP [facility] monitoring applied. [facility] : Door closed. Noise minimized. Warm blanket given. [place] [id number] 22:48 21:30 Respiratory: Airway is patent Respiratory effort is even, labored, shallow, [place] [id number]
--- NOTE | 2021-10-21 23:45 | EDPHYS ---
Physician Documentation [facility] Name: Jose Marcelino Age: 71 yrs Sex: Male : 1950 Arrival Date: 10/21/2021 Time: 20:58 Bed 8 Private MD: ED Physician Jose Albright HPI: 10/21 21:15 This 71 yrs old Male presents to ER via Ambulatory with complaints of Breathing cp Difficulty. 21:15 The patient has shortness of breath at rest. Onset: The symptoms/episode began/occurred cp yesterday. Duration: The symptoms are continuous, and are steadily getting worse. Associated signs and symptoms: Pertinent positives: productive cough, Pertinent negatives: chest pain, fever, vomiting. Severity of symptoms: in the emergency department the symptoms are unchanged despite home interventions. Historical: - Allergies: 10/22 01:53 No Known Allergies; aa9 - PMHx: 10/21 21:07 Chronic obstructive lung disease; diabetes mellitus; Hypertensive disorder; as6 - Immunization history:: Adult Immunizations up to date. - Social history:: Smoking status: Patient reports the use of cigarette tobacco products, smokes one pack cigarettes per day. ROS: 21:17 Constitutional: Negative for body aches, fever, poor PO intake. cp 21:17 Eyes: Negative for injury, pain, redness, and discharge. cp 21:17 ENT: Negative for drainage from ear(s), ear pain, sore throat, difficulty swallowing, difficulty handling secretions. 21:17 Cardiovascular: Negative for chest pain, edema. 21:17 Respiratory: Positive for cough, "sounds productive", shortness of breath, at rest. wheezing. 21:17 Abdomen/GI: Negative for abdominal pain, nausea, vomiting, and diarrhea. 21:17 Neuro: Negative for altered mental status, dizziness, headache, syncope, weakness. 21:17 All other systems are negative. Exam: 21:20 Constitutional: The patient appears alert, awake, non-diaphoretic, non-toxic, well cp developed, well nourished, in obvious distress, moderately distressed. 21:20 Head/Face: Normocephalic, atraumatic. cp 21:20 Eyes: Periorbital structures: appear normal, Conjunctiva: normal, no exudate, no injection, Sclera: no appreciated abnormality, Lids and lashes: appear normal, bilaterally. 21:20 ENT: External ear(s): are unremarkable, Nose: is normal, Mouth: Lips: moist, Oral mucosa: pink and intact, moist, Posterior pharynx: Airway: no evidence of obstruction, patent, swelling, is not appreciated, erythema, is not appreciated, exudate, is not appreciated. 21:20 Neck: ROM/movement: is normal, is supple, without pain, no range of motions limitations, no meningismus. 21:20 Chest/axilla: Inspection: normal, Palpation: is normal, no crepitus, no tenderness. 21:20 Cardiovascular: Rate: tachycardic, Rhythm: regular, Edema: is not appreciated, JVD: is not appreciated. 21:20 Respiratory: moderate respiratory distress is noted, Respirations: labored breathing, that is moderate, shallow respirations, that is moderate, Breath sounds: decreased breath sounds, that are moderate, throughout, stridor, is not appreciated, wheezing: that is moderate, is heard diffusely. 21:20 Abdomen/GI: Inspection: abdomen appears normal, Palpation: abdomen is soft and non-tender, in all quadrants. 21:20 Back: pain, is absent, ROM is normal. 21:20 Neuro: Orientation: to person, place \\T\\ time. Mentation: is normal, Sensation: no obvious gross deficits. 10/22 02:17 ECG was reviewed by the Attending Physician. cp Vital Signs: 10/21 21:06 Resp 30; Temp 98.6; Pulse Ox 86% on R/A; Weight 68.04 kg; Height 5 ft. 7 in. (170.18 as6 cm); Pain 0/10; 21:30 BP 116 / 78; Pulse 108; Resp 19; Pulse Ox 98% on 3 lpm NC; eh3 22:00 BP 117 / 72; Pulse 105; Resp 22; Pulse Ox 97% on 3 lpm NC; eh3 10/22 01:55 BP 128 / 60; Pulse 77; Resp 18 A; Pulse Ox 100% on BiPAP; aa9 10/21 21:06 Body Mass Index 23.49 (68.04 kg, 170.18 cm) as6 MDM: 10/21 21:08 Patient medically screened. cp 23:25 Data reviewed: vital signs, nurses notes, lab test result(s), EKG, radiologic studies, cp plain films. 23:25 Antibiotic administration: Levaquin given. Data interpreted: lead pourer: rate is cp 108 beats/min, rhythm is regular, Interpretation: normal rhythm, tachycardia, Pulse oximetry: on 3L(s) per nasal canula, is 95 %. Test interpretation: by ED physician or midlevel provider: plain radiologic studies. 10/22 00:00 ED course: Patient qualifies for severe sepsis: A) source of infection is pneumonia, B) cp SIRS criteria: tachycardia and WBC of 15.3, C) will place on BIPAP. 10/21 21:08 Order name: Basic Metabolic Panel; Complete Time: 23:11 10/21 23:13 Interpretation: Normal except: NA 135; GLUC 138; BUN 27; GFR 67. 10/21 21:08 Order name: CBC with Diff; Complete Time: 22:58 10/21 23:13 Interpretation: Normal except: WBC 15.30; RBC 3.93; HGB 11.5; HCT 34.3; MCV 87.3; RDW cp 17.0; MPV 6.9; MARGARITA% 84.3; LYM% 8.3; NEUT A 12.9. 10/21 21:08 Order name: LFT's; Complete Time: 23:11 10/22 02:19 Interpretation: Normal except: AST 7; GLOB 4.3; A/G 0.8. 10/21 21:08 Order name: Magnesium; Complete Time: 23:11 10/21 21:08 Order name: NT PRO-BNP; Complete Time: 23:11 10/21 21:08 Order name: PT-INR; Complete Time: 22:58 10/22 02:19 Interpretation: Abnormal: PT 14.3. 10/21 21:08 Order name: Troponin HS; Complete Time: 23:11 10/21 21:08 Order name: XRAY Chest (1 view); Complete Time: 22:30 10/21 21:08 Order name: COVID-19 SARS RT PCR (Document "Date of Onset" if Symptomatic); Complete cp Time: 22:58 10/21 21:08 Order name: Influenza Screen (a \\T\\ B); Complete Time: 23:11 10/21 21:08 Order name: Lactate; Complete Time: 22:58 10/22 02:20 Interpretation: LAC 1.2; Reviewed. 10/21 21:08 Order name: Procalcitonin; Complete Time: 01:53 10/21 21:08 Order name: Blood Culture Adult (2) 10/21 22:38 Order name: ABG; Complete Time: 23:16 10/21 21:08 Order name: EKG; Complete Time: 21:09 10/21 21:08 Order name: Cardiac monitoring; Complete Time: 21:13 10/21 21:08 Order name: EKG - Nurse/Tech; Complete Time: 21:13 10/21 21:08 Order name: IV Saline Lock; Complete Time: 21:31 10/21 21:08 Order name: Labs collected and sent; Complete Time: 22:34 10/21 21:08 Order name: O2 Per Protocol; Complete Time: 21:13 10/21 21:08 Order name: O2 Sat Monitoring; Complete Time: 21:13 10/22 02:18 Order name: BIPAP cp EC:17 Rate is 110 beats/min. Rhythm is regular. [place] interval is normal. QRS interval is cp prolonged at 120 msec. QT interval is normal. Interpreted by me. Reviewed by me. Administered Medications: 10/21 21:30 Drug: Xopenex (levalbuterol) (3) 1.25 mg Route: Inhalation; ld1 21:55 Follow up: Response: No adverse reaction ld1 21:30 Drug: SOLU-Medrol (methylPrednisoLONE) 125 mg Route: IVP; Site: left upper arm; ld1 21:54 Follow up: Response: No adverse reaction ld 10/22 00:01 Drug: LevaQUIN (levofloxacin) 750 mg Volume: 150 ml; Route: IVPB; Infused Over: 90 eh3 mins; Site: left antecubital; Disposition Summary: 10/21/21 23:44 Hospitalization Ordered Hospitalization Status: Inpatient Admission cp Provider: Connor Weinstein cp Location: Telemetry/MedSurg (Inpatient) cp Condition: Stable cp Problem: new cp Symptoms: have improved cp Bed/Room Type: Standard Room Assignment: 422(10/22/21 00:13) mw Diagnosis - Other pneumonia, unspecified organism cp Forms: - Medication Reconciliation Form cp - SBAR form cp Addendum: 10/24/2021 07:33 Co-signature as Attending Physician, Jose Albright MD I agree with the assessment and k dr plan of care. Signatures: Dispatcher [employer] EDMS Rakel Ley RN RN mw Rittger, Kevin, MD MD [facility] Morgan Rm, MERCURY RECOVERER-C MERCURY RECOVERER-Cla1 Emeka Hernandez PA PA cp Janessa Evans RN RN ld1 Caden Nieto RN RN as6 Kinjal Cesar RN RN eh3 Amalia Serna RN RN aa9 Corrections: (The following items were deleted from the chart) 10/22 00:13 10/21 23:44 cp kayce
[2021-10-22] MEDS ORDERED: Levofloxacin 750mg IV 750 MG/150 ML BAG IV ONE (00:07)
--- NOTE | 2021-10-22 00:46 | P.HP ---
Certification for Inpatient Patient admitted to: Inpatient With expected LOS: >2 Midnights Patient will require the following post-hospital care: None Practitioner: I am a practitioner with admitting privileges, knowledge of patient current condition, hospital course, and medical plan of care. Services: Services provided to patient in accordance with Admission requirements found in Title 42 Section 412.3 of the Code of Federal Regulations <Morgan Rm - Last Filed: 10/22/21 00:39> Patient History Date of Service: 10/22/21 Reason for admission: Sepsis, pneumonia, COPD History of Present Illness: 71-year-old male with history of COPD on chronic home O2, hypertension, non- insulin diabetes presents emergency department for shortness of breath. He reports increasing shortness of breath over the course of the last 3 days with increased need for his home O2. Patient was evaluated in the emergency department he is found to have elevated white blood cell count 15.3 he also met SIRS criteria for tachycardia and tachypnea with a source of infection identified on chest x-rayreticular opacities noted in the right lung base greatest medially suspicious for infection/pneumonia. Patient was started on antibioticsLevaquin and given IV steroids/neb treatments. Patient was hypoxic on room air he had an ABG performed while on nasal cannula with normal pH/PCO2. We will admit for further valuation and management of sepsis, pneumonia, COPD exacerbation. - Past Medical/Surgical History Diabetic: No -: DM -: Asthma -: Arthritis -: COPD -: HTN -: HLD -: depresison -: Cyst removal from right side of neck Psychosocial/ Personal History: Patient lives at home with his son - Family History Mother -: Heart disease, Diabetes Sister -: Diabetes, Cancer Father -: Cancer - Social History Smoking Status: Former smoker Counseled patient to stop smoking for: less than 10 minutes Alcohol use: No CD- Drugs: No Caffeine use: Yes Place of Residence: Home <Morgan Rm - Last Filed: 10/22/21 00:39> Date of Service: 10/22/21 <Connor Weinstein - Last Filed: 10/22/21 18:53> Allergies limestone Allergy (Uncoded 01/26/17 16:19) Itching/Hives/Rash Home Medications: Sertraline [Zoloft*] 100 mg PO BID 05/13/13 Simvastatin [Zocor*] 40 mg PO BEDTIME 05/13/13 Hydrocodone/Acetaminophen [[place]rich 5-325 Tablet] 1 each PO BIDP PRN 01/26/17 Triamterene/Hydrochlorothiazid [Triamterene-Hctz 37.5-25 mg Cp] 1 each PO DAILY 01/26/17 Albuterol Inhaler [Ventolin Inhaler*] 1 puff IN BID 01/22/21 Fluticasone/Umeclidin/Vilanter [Trelegy Ellipta 100-62.5-25] 1 puff IN DAILY 01/22/21 Metformin HCl 1,000 tab PO BID 01/22/21 Lisinopril [Zestril] 2.5 mg PO DAILY 05/28/21 Pregabalin [Lyrica] 25 mg PO BID 05/28/21 Albuterol Neb [Proventil 0.083% Neb Soln] 2.5 mg NEB [id number] #60 amp 05/29/21 Ipratropium Neb [Atrovent*] 0.5 mg NEB [id number] #60 amp 05/29/21 Nicotine [Nicotine Patch] 1 each TD DAILY 10/22/21 predniSONE [Deltasone] 10 mg PO BID 10/22/21 Review of Systems 10-point ROS is otherwise unremarkable Respiratory: Cough, Shortness of Breath <Morgan Rm Malick - Last Filed: 10/22/21 00:39> Physical Examination - Physical Exam General: Alert, In no apparent distress, Oriented x3 HEENT: Atraumatic, PERRLA, Mucous membr. moist/pink, EOMI, Sclerae nonicteric Neck: Supple, 2+ carotid pulse no bruit, No LAD, Without JVD or thyroid abnormality Respiratory: Expiratory wheezes, Rhonchi/gurgles Cardiovascular: No edema, Regular rate/rhythm, Normal S1 S2 Gastrointestinal: Normal bowel sounds, No tenderness Musculoskeletal: No tenderness Integumentary: No rashes Neurological: Normal speech, Normal strength at 5/5 x4 extr, Normal tone, Normal affect - Studies Laboratory Data (last 24 hrs) 10/21/21 22:23: PT 14.3 H, INR 1.29 10/21/21 22:23: WBC 15.30 H, Hgb 11.5 L, Hct 34.3 L, Plt Count 255 10/21/21 22:23: Sodium 135 L, Potassium 4.2, BUN 27 H, Creatinine 1.16, Glucose 138 H, Magnesium 2.0, Total Bilirubin 0.5, AST 7 L, ALT 18, Alkaline Phosphatase 79 Microbiology Data (last 24 hrs): 10/21/21 22:04 Nasopharnyx Influenza Type A Antigen Screen - Final 10/21/21 22:04 Nasopharnyx Influenza Type B Antigen Screen - Final <Morgan Rm - Last Filed: 10/22/21 00:39> - Studies Laboratory Data (last 24 hrs) 10/21/21 22:23: PT 14.3 H, INR 1.29 10/21/21 22:23: WBC 15.30 H, Hgb 11.5 L, Hct 34.3 L, Plt Count 255 10/21/21 22:23: Sodium 135 L, Potassium 4.2, BUN 27 H, Creatinine 1.16, Glucose 138 H, Magnesium 2.0, Total Bilirubin 0.5, AST 7 L, ALT 18, Alkaline Phosphatase 79 Microbiology Data (last 24 hrs): 10/21/21 22:04 Nasopharnyx Influenza Type A Antigen Screen - Final 10/21/21 22:04 Nasopharnyx Influenza Type B Antigen Screen - Final <Connor Weinstein - Last Filed: 10/22/21 18:53> Assessment and Plan - Plan Assessment: Sepsis secondary to pneumonia Acute on chronic hypoxic respiratory failure secondary to pneumonia/COPD with exacerbation Diabetes mellitus type [id number] Hypertension Plan: Sepsis secondary to pneumonia: Blood cultures obtained SIRS criteria present leukocytosis, tachycardia, tachypnea source of infection identified as pneumonia. Continue antibioticsLevaquin, incentive spirometry, supplemental oxygen as needed. Patient does have home oxygen for COPD. Follow blood cultures. Acute on chronic hypoxic respiratory failure secondary to pneumonia/COPD with exacerbation: Pulmonology consult in place continue with steroids, scheduled nebs, incentive spirometry, ICS. Patient with home oxygen. Diabetes mellitus type [id number]: ACHS Accu-Chek, sliding scale insulin. A1c in the morning. Hypertension: Continue home medication once verified. DVT PPX: Lovenox Code status: Full Discharge Plan: Home Plan to discharge in: 48 Hours - Advance Directives Does patient have a Living Will: No Does patient have a Durable POA for Healthcare: No - Code Status/Comfort Care Code Status Assessed: Yes (Full code) Critical Care: No Time Spent Managing Pts Care (In Minutes): 70 <Morgan Rm - Last Filed: 10/22/21 00:39> Physician Review: Patient Assessed, Agree with Above Assessment and Plan <Connor Weinstein - Last Filed: 10/22/21 18:53>
[2021-10-22] MEDS ORDERED: ONDANSETRON 4 MG/2 ML VIAL IV PRN (02:02)
[2021-10-22 03:05] VITALS: BMI 23.2
[2021-10-22] MEDS: IPRATROPIUM BROM 0.5MG/2.5ML NEB SCH ×4 (03:25→20:00)
[2021-10-22] MEDS: ALBUTEROL 2.5 MG/3 ML NEB SOL NEB SCH ×4 (03:25→20:00)
[2021-10-22 03:45] LABS: Absolute Lymphocytes (CBC) 0.6 K/uL (0.7-4.9); Hematocrit 32.7 % (39.6-49.0); Lymphocytes % 4.2 % (15.3-44.8); MPV 6.9 fL (7.6-11.3); RBC Red Blood Cell Count 3.76 M/uL (4.33-5.43)
[2021-10-22 03:57] LABS: Albumin 3.3 g/dL (3.4-5.0); Bilirubin Total 0.4 mg/dL (0.2-1.0); Potassium 4.3 mmol/L (3.5-5.1); Protein, Total 7.5 g/dL (6.4-8.2)
[2021-10-22 04:46] LABS: Blood Morphology Comment NOT SEEN (NOT SEEN); Platelet Estimate ADEQ
[2021-10-22] MEDS: INSULIN -REGULAR HUMAN 50 UNIT/0.5 ML ML SQ SCH ×4 (07:30→21:00)
[2021-10-22] MEDS: ENOXAPARIN 40 MG/0.4 ML SQ SCH (08:25)
[2021-10-22] MEDS: predniSONE 20 MG TAB PO SCH (08:26)
[2021-10-22] MEDS: BENZONATATE 100 MG CAP PO PRN ×3 (08:26→20:22)
[2021-10-22] MEDS: DULERA 200/5 (MOMETASONE/FORMOTEROL) INHALER IH SCH ×2 (08:26→20:22)
--- NOTE | 2021-10-22 12:19 | P.CNS ---
Date of Consult: 10/22/21 Reason for Consult: COPD exacerbation Chief Complaint: Sepsis, pneumonia, COPD History of Present Illness: Patient is 71 years of age with a history of terminal COPD frequent exacerbations admitted with acute on chronic shortness of breath he became worse over the past 2 days patient does have oxygen at home is in a lot of distress is feeling better right now Compliant with his inhalers Allergies limestone Allergy (Uncoded 01/26/17 16:19) Itching/Hives/Rash Home Medications: Sertraline [Zoloft*] 100 mg PO BID 05/13/13 Simvastatin [Zocor*] 40 mg PO BEDTIME 05/13/13 Hydrocodone/Acetaminophen [[place] 5-325 Tablet] 1 each PO BIDP PRN 01/26/17 Triamterene/Hydrochlorothiazid [Triamterene-Hctz 37.5-25 mg Cp] 1 each PO DAILY 01/26/17 Albuterol Inhaler [Ventolin Inhaler*] 1 puff IN BID 01/22/21 Fluticasone/Umeclidin/Vilanter [Trelegy Ellipta 100-62.5-25] 1 puff IN DAILY 01/22/21 Metformin HCl 1,000 tab PO BID 01/22/21 Tamsulosin [Flomax*] 1 cap PO BEDTIME 01/22/21 Nebulizer and Compressor [Compressor Nebulizer System] 1 each MC PRN #1 each 01/23/21 Lisinopril [Zestril] 2.5 mg PO DAILY 05/28/21 Pregabalin [Lyrica] 25 mg PO BID 05/28/21 Albuterol Neb [Proventil 0.083% Neb Soln] 2.5 mg NEB [id number] #60 amp 05/29/21 Ipratropium Neb [Atrovent*] 0.5 mg NEB [id number] #60 amp 05/29/21 Oseltamivir Phosphate [Tamiflu] 30 mg PO BID #10 cap 05/29/21 levoFLOXacin [Levaquin*] 750 mg PO BEDTIME #5 tab 05/29/21 predniSONE [Deltasone] 20 mg PO BID #30 tab 05/29/21 - Past Medical/Surgical History Diabetic: No -: DM -: Asthma -: Arthritis -: COPD -: HTN -: HLD -: depresison -: Cyst removal from right side of neck Psychosocial/ Personal History: Patient lives at home with his son - Family History Mother Medical History: Heart disease, Diabetes Sister Medical History: Diabetes, Cancer Father Medical History: Cancer - Social History Smoking Status: Current every day smoker Alcohol use: No CD- Drugs: No Caffeine use: Yes Place of Residence: Home Review of Systems 10-point ROS is otherwise unremarkable General: Weakness Respiratory: Cough, Shortness of Breath Physical Examination Temp Pulse Resp BP Pulse Ox 97.1 F 84 20 123/59 L 95 10/22/21 12:00 10/22/21 12:00 10/22/21 12:00 10/22/21 12:00 10/22/21 12:00 General: Alert, Oriented x3 Respiratory: Diminished, Expiratory wheezes Cardiovascular: No edema, Regular rate/rhythm, Normal S1 S2 Gastrointestinal: Normal bowel sounds, Soft and benign Musculoskeletal: No clubbing, No contractures Neurological: Normal speech, Normal strength at 5/5 x4 extr Laboratory Data (last 24 hrs) 10/21/21 22:23: PT 14.3 H, INR 1.29 10/21/21 22:23: WBC 15.30 H, Hgb 11.5 L, Hct 34.3 L, Plt Count 255 10/21/21 22:23: Sodium 135 L, Potassium 4.2, BUN 27 H, Creatinine 1.16, Glucose 138 H, Magnesium 2.0, Total Bilirubin 0.5, AST 7 L, ALT 18, Alkaline Phosphatase 79 - Problems (1) COPD exacerbation Current Visit: No Status: Acute Plan: Patient is 71 years of age admitted with worsening shortness of breath he has severe COPD compliant with his inhalers as home oxygen chest x-ray normal right hilar region will do a CT scan of the chest gases chemistry reviewed mildly elevated white count changed to p.o. levofloxacin continue with nebulizers steroids 4 L on nasal cannula oxygen stable evaluate for discharge possibly tomorrow
--- NOTE | 2021-10-22 14:10 | RAD REPORT ---
EXAM DESCRIPTION: CT - Thorax Wo Con - 10/22/2021 1:59 pm CLINICAL HISTORY: Abnormal chest x-ray COMPARISON: Thorax Wo Con dated 09/22/2021; Lung Cancer Screening CT W/O dated 08/01/2021; Thorax Wo C on dated 03/11/2020; Thorax Wo Con dated 05/11/2017 FINDINGS: Chest Wall: No suspicious thyroid nodules or pathologic lymphadenopathy. Lungs: Moderate to advanced emphysema. Scattered nonspecific nodularity and micro nodularity more not ably within the right middle lobe and right lower lobe. Scattered scarring.No consolidative airspace disease or edema. Scattered small pulmonary nodules are unchanged and benign. The largest is a linear ly oriented nodule in the left lower lobe measuring 12 millimeters. This is benign. Pleura: No significant effusions or pneumothorax. Mediastinum/casey: No pathologic lymphadenopathy. Pulmonary arteries/Aorta: Limited evaluation without contrast. No aortic aneurysm. Heart: No significant pericardial effusion. Normal heart size. Multi-vessel coronary artery disease. Upper abdomen: No acute abnormality. Bones: No acute abnormality. All CT scans are performed using dose optimization technique as appropriate and may include automated exposure control or mA/KV adjustment according to patient size. IMPRESSION: Mild scattered nodularity and micronodularity could reflect an atypical infectious or in flammatory process. No consolidative airspace disease or edema. Moderate to advanced emphysema noted. No suspicious nodules identified.
[2021-10-22] MEDS ORDERED: NICOTINE 7 MG/PAT TD SCH (15:00)
--- NOTE | 2021-10-22 17:09 | EKG ---
Test Date: 2021-10-21 Test Time: 21:12:37 Data Entry Analyst: PATEL MEASUREMENT RESULTS: Intervals: Rate: 110 KS: 186 QRSD: 120 QT: 324 QTc: 438 [place]: P: 87 KS: 186 QRS: 92 T: 55 INTERPRETIVE STATEMENTS: Sinus tachycardia with fusion complexes Rightward axis Nonspecific intraventricular conduction delay Nonspecific ST and T wave abnormality Abnormal ECG Compared to ECG 05/27/2021 20:51:51 Right-axis deviation now present Intraventricular conduction delay now present ST (T wave) deviation now present Sinus rhythm no longer present Right bundle-branch block no longer present Electronically Signed On 10-22-21 17:06:42 CDT by Parvez Regalado
[2021-10-22] MEDS ORDERED: PREGABALIN 50 MG CAP PO SCH (22:32)
[2021-10-22] MEDS ORDERED: PREGABALIN 50 MG CAP PO ONE (22:38)
[2021-10-22] MEDS: SERTRALINE HCL 100 MG TAB PO SCH (22:48)
[2021-10-23] MEDS ORDERED: Levofloxacin500mg IV 500 MG/100 ML BAG IV SCH
[2021-10-23] MEDS: ALBUTEROL 2.5 MG/3 ML NEB SOL NEB SCH ×2 (02:30→08:57)
[2021-10-23] MEDS: IPRATROPIUM BROM 0.5MG/2.5ML NEB SCH ×2 (02:30→08:57)
[2021-10-23 03:45] LABS: Hematocrit 31.7 % (39.6-49.0); Lymphocytes % 14.7 % (15.3-44.8); MCV 86.8 fL (80-100); MPV 7.1 fL (7.6-11.3); RBC Red Blood Cell Count 3.65 M/uL (4.33-5.43)
[2021-10-23 03:59] LABS: Albumin 3.2 g/dL (3.4-5.0); Bilirubin Total 0.2 mg/dL (0.2-1.0); Potassium 3.7 mmol/L (3.5-5.1); Protein, Total 7.5 g/dL (6.4-8.2)
[2021-10-23] MEDS ORDERED: POTASSIUM CL SA 10 MEQ TAB PO ONE (04:23)
[2021-10-23] MEDS: INSULIN -REGULAR HUMAN 50 UNIT/0.5 ML ML SQ SCH (07:30)
--- NOTE | 2021-10-23 08:25 | P.DS ---
Admission Date: 10/22/21 Discharge Date: 10/23/21 Primary Care Provider: Dr. Maldonado Disposition: ROUTINE DISCHARGE Discharge Condition: GOOD Reason for Admission: Sepsis, pneumonia, COPD Consultations: 1. Pulmonary Medicine Hospital Course: DIAGNOSES: # Acute on Chronic Hypoxic Respiratory Failure secondary to Acute COPD Exacerbation # Sepsis secondary to Atypical Pneumonia # Type II Diabetes Mellitus # Hypertension HOSPITAL COURSE: Mr. Jose Marcelino is a pleasant 71-year-old male with a past medical history significant for chronic respiratory failure secondary to COPD, type 2 diabetes mellitus, and hypertension who was admitted to the [facility] on 10/22/2021 for shortness of breath. He was admitted to the Medicine service. Upon further evaluation, he was found to have acute on chronic hypoxic respiratory failure due to an acute COPD exacerbation as well as sepsis secondary to atypical pneumonia. Pulmonary Medicine was consulted and he was evaluated by Dr. Caldwell. He was treated with bronchodilators, steroids, and levofloxacin, with significant improvement of his symptoms. Over the course of his hospitalization, he continued to improve clinically and was eager to be discharged home today. He has been cleared for discharge by Dr. Caldwell with close outpatient follow-up. In regards to his steroid therapy, he reports that he has been on and off prednisone for many years. He states that prior to admission, he was not on prednisone. I advised that should he be on more than 20 mg of prednisone per day for greater than 2 weeks, he should inquire about starting PJP prophylaxis with sulfamethoxazoletrimethoprim. He verbalized understanding. On 10/23/2021, he was seen on morning rounds and deemed medically stable for discharge. He was discharged with instructions to schedule follow-up appointments with his PCP (Dr. Maldonado) in 3-5 days and with Pulmonary Medicine (Dr. Caldwell) in 5-7 days. He was provided prescriptions for levofloxacin and benzonatate. He was given the opportunity to ask questions and reported no further questions. Furthermore, all questions were answered to the best of my ability. Today, I personally spent 20 minutes on his case, of which greater than 50% of the time was spent in patient education, counseling, and coordination of care as described above. Vital Signs/Physical Exam: Temp Pulse Resp BP Pulse Ox 97.6 F 93 H 17 129/71 90 L 10/23/21 04:00 10/23/21 04:00 10/23/21 04:00 10/23/21 04:00 10/23/21 04:00 General: Alert, In no apparent distress, Oriented x3 HEENT: Atraumatic, PERRLA, Mucous membr. moist/pink, EOMI, Sclerae nonicteric Neck: Supple, JVD not distended Respiratory: Clear to auscultation bilaterally, Normal air movement Cardiovascular: No edema, Regular rate/rhythm, Normal S1 S2, No gallops, No rubs, No murmurs Gastrointestinal: Normal bowel sounds, Soft and benign, Non-distended, No tenderness, No rebound, No guarding Musculoskeletal: No clubbing Integumentary: No rashes Neurological: Normal speech, Cranial nerves 3-12 intact, Normal affect Laboratory Data at Discharge: WBC 13.80 K/uL (4.3-10.9) H 10/23/21 02:57 Hgb 10.8 g/dL (13.6-17.9) L 10/23/21 02:57 Hct 31.7 % (39.6-49.0) L 10/23/21 02:57 Plt Count 280 K/uL (152-406) 10/23/21 02:57 PT 14.3 SECONDS (9.5-12.5) H 10/21/21 22:23 INR 1.29 10/21/21 22:23 Sodium 137 mmol/L (136-145) D 10/23/21 02:57 Potassium 3.7 mmol/L (3.5-5.1) D 10/23/21 02:57 BUN 36 mg/dL (7-18) H 10/23/21 02:57 Creatinine 1.31 mg/dL (0.55-1.3) H 10/23/21 02:57 Glucose 157 mg/dL (74-106) H 10/23/21 02:57 Magnesium 2.0 mg/dL (1.8-2.4) 10/21/21 22:23 Total Bilirubin 0.2 mg/dL (0.2-1.0) 10/23/21 02:57 AST 23 U/L (15-37) 10/23/21 02:57 ALT 24 U/L (12-78) 10/23/21 02:57 Alkaline Phosphatase 76 U/L (45-117) 10/23/21 02:57 Home Medications: Sertraline [Zoloft*] 100 mg PO BID 05/13/13 Simvastatin [Zocor*] 40 mg PO BEDTIME 05/13/13 Hydrocodone/Acetaminophen [[place] 5-325 Tablet] 1 each PO BIDP PRN 01/26/17 Triamterene/Hydrochlorothiazid [Triamterene-Hctz 37.5-25 mg Cp] 1 each PO DAILY 01/26/17 Albuterol Inhaler [Ventolin Inhaler*] 1 puff IN BID 01/22/21 Fluticasone/Umeclidin/Vilanter [Trelegy Ellipta 100-62.5-25] 1 puff IN DAILY 01/22/21 Metformin HCl 1,000 tab PO BID 01/22/21 Lisinopril [Zestril] 2.5 mg PO DAILY 05/28/21 Pregabalin [Lyrica] 25 mg PO BID 05/28/21 Albuterol Neb [Proventil 0.083% Neb Soln] 2.5 mg NEB [id number] #60 amp 05/29/21 Ipratropium Neb [Atrovent*] 0.5 mg NEB [id number] #60 amp 05/29/21 Nicotine [Nicotine Patch] 1 each TD DAILY 10/22/21 predniSONE [Prednisone*] 10 mg PO BID 10/22/21 Benzonatate [Tessalon Perle*] 100 mg PO TID PRN #30 cap 10/23/21 levoFLOXacin [Levaquin*] 750 mg PO DAILY 5 Days #5 tab 10/23/21 New Medications: levoFLOXacin [Levaquin*] 750 mg PO DAILY 5 Days #5 tab Benzonatate [Tessalon Perle*] 100 mg PO TID PRN #30 cap PRN Reason: Cough Physician Discharge Instructions: 1. Please schedule a follow-up appointment with your PCP (Dr. Maldonado) in 3-5 days 2. Please schedule a follow-up appointment with Pulmonary Medicine (Dr. Caldwell) in 5-7 days Diet: AHA Activity: Ad ginna Followup: Jay Caldwell MD [ACTIVE - CAN ADMIT] - (e merchant- call to schedule an appointment) Uri Maldonado DO [ACTIVE - CAN ADMIT] - (PCP- call to schedule an appointment) Time spent managing pt's care (in minutes): 20
[2021-10-23 08:44] VITALS: BP 160/67; TEMP 96.9
[2021-10-23] MEDS ORDERED: PREGABALIN 50 MG CAP PO SCH (09:00)
[2021-10-23] MEDS ORDERED: Pregabalin [Lyrica] 25 MG Capsule PO SCH (09:00)
[2021-10-23] MEDS ORDERED: levoFLOXacin 750 MG TAB PO SCH (09:00)
[2021-10-23] MEDS: BENZONATATE 100 MG CAP PO PRN (09:09)
[2021-10-23] MEDS: predniSONE 20 MG TAB PO SCH (09:09)
[2021-10-23] MEDS: ENOXAPARIN 40 MG/0.4 ML SQ SCH (09:10)
[2021-10-23] MEDS: DULERA 200/5 (MOMETASONE/FORMOTEROL) INHALER IH SCH (09:11)
[2021-10-23 09:42] VITALS: O2SAT 94
== END 2021-10-23 12:08 | disposition home or self-care (01) | DRG 871 ==
LOC: ER 20:57 → 4TH 10-22 00:17
PROVIDERS: ADMIT Internal Medicine; ATTEND Internal Medicine
PROC: 5A09357 Assistance with Respiratory Ventilation, Less than 24 Consecutive Hours, Continuous Positive Airway Pressure (ICD-10-PCS; principal; 2021-10-22)
DX: A41.9 Sepsis, unspecified organism (principal); J18.9 Pneumonia, unspecified organism; J96.21 Acute and chronic respiratory failure with hypoxia; J44.0 Chronic obstructive pulmonary disease with (acute) lower respiratory infection; J44.1 Chronic obstructive pulmonary disease with (acute) exacerbation; E11.9 Type 2 diabetes mellitus without complications; I10 Essential (primary) hypertension; Z99.81 Dependence on supplemental oxygen; E78.5 Hyperlipidemia, unspecified; Z87.891 Personal history of nicotine dependence; Z20.822 Contact with and (suspected) exposure to COVID-19
CPT/HCPCS: 36415; 71045; 71250; 80048; 80053; 80076; 82805; 82947; 83605; 83735; 83880; 84145; 84484; 85025; 85610; 87040; 87804; 93005; 94010; 94640; 94660; 94760; 99285; J1650; J1815; J2405; J2930; J3535; J7512; J7614; U0003

== ENCOUNTER 2021-12-27 12:34 | Inpatient (IN) | payer OTHER ==
--- OUTSIDE RECORDS SUMMARY | 2021-12-27 12:40 | XMS REPORT | Continuity of Care Document ---
:1950 Author Organization [facility] t Address [address] [place] [address] Care Team Providers Name Role Phone Uri Maldonado Attending Clinician Unavailable Payers Payer Name Policy Type Policy Effective Date Expiration Date Sour ce Number [facility] 53 [id number] Commo n Spirit [facility] Problems Condition Condition Condition Status Onset Resolution Last Treating Co mments Source Name Details Category Date Date Treatment Clinician Date [id number] COPD with Problem Com mon exacerbati Spirit on [facility] Urine Urinary Problem Common incontinen incontinen Sp eliza ce ce, - [facility] Chronic Chronic Problem Common back pain back pain Spir it - [facility] 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, - [facility] interverte cervical [facility] bral [facility] [id number] Chronic Problem Common neutrophil Spirit ia [facility] Hyperglyce Hyperglyce Problem C ommon heriberto heriberto Spirit [facility] Benign Benign Problem Common essential essential Spir it hypertensi hypertensi - [facility]I on on [facility] Chronic Chronic Problem Common obstructiv obstructiv Sp eliza e e - [facility] pulmonary pulmonary St disease [facility] (COPD) [facility] Migraine Migraine, Problem Comm on unspecifie Spirit d, not - [facility] intractabl [facility] 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 - [facility] Osteoarthr OA Problem Commo n itis (osteoarth Spirit ritis) - [facility] Tobacco Tobacco Problem Common use use Spirit disorder - [facility] Depression Depression Problem C [facility] History of H/O: CVA Problem Com mon cerebrovas (cerebrova Sp eliza cular scular - [facility] accident accident) [facility] [id number] Controlled Problem Co mmon type 2 Spirit diabetes - [facility] mellitus [facility] complicati Medica l on, Center unspecifie d whether nursing home insulin use [id number] Thrombocyt Problem Comm on osis Spirit - [facility] [id number] Elevated Problem Com mon [id number] C-reactive [facility] protein - [facility] (CRP) [facility] Benign BPH Problem Common prostatic (benign Spirit hyperplasi prostatic - C HI a hyperplasi [facility] Prediabete Prediabete Problem C [facility] Spirit [facility] Sciatica Sciatica Problem Commo n Spirit [facility] Mixed Hyperlipid Problem Commo n hyperlipid emia, Spirit emia mixed [facility] [id number] Hypercalce Problem Com mon [facility] [id number] Noncomplia Problem Co mmon nce with Spirit dietary - [facility] restrictio [facility] [id number] Type 2 Problem Common diabetes [facility] mellitus - [facility] with [facility] long-term current use of insulin Allergies, Adverse Reactions, Alerts This patient has no known allergies or adverse reactions. Social History Social Habit Start Date Stop Date Quantity Comments Source History of Tobacco Current Smoker Co mmon Spirit - [facility] Use [facility] Sex Assigned At Com mon Spirit - [facility] Smoking Status Start Date Stop Date Source Current Smoker 2021-12-03 00:00:00 Common Spiri t - [facility] Medications Ordered Filled Start Stop Current Ordering Indication Dosage Frequency Signature Comments Components Source Medication Medication Date Date Medication? Clinician (SIG) Name Name Trintellix Trintellix No 1{table QD Trintellix 10 MG 10 MG 9-27 t} 10 MG 00:00: 00 Trintellix Trintellix No 1{table QD Trintellix 10 MG 10 MG 9-27 t} 10 MG 00:00: 00 Pregabalin Pregabalin 2021-0 No 1{capsu BID Pregabalin 75 MG 75 MG -03 le} 75 MG 00:00: 00 Pregabalin Pregabalin 2021-0 No 1{capsu BID Pregabalin 75 MG 75 MG -03 le} 75 MG 00:00: 00 Pregabalin Pregabalin 2021-0 No 1{capsu BID Pregabalin 75 MG 75 MG 03 le} 75 MG 00:00: 00 Pregabalin Pregabalin 0 No 1{capsu BID Pregabalin 75 MG 75 MG 03 le} 75 MG 00:00: 00 Bactrim DS Bactrim DS 2019-0 2020- No Kaylee 1 tablet Common 17 -20 [place] Spirit 00:00: 00:00 - [facility] 00 :00 [facility] Tamsulosin Tamsulosin 2019-0 2020- No Kaylee 1 capsule Common HCl HCl 18 -13 [place] Spirit 00:00: 00:00 - [facility]I 00 :00 [facility] Flonase Flonase Yes Kaylee 1 spray in Co mmon [place] each Spirit nostril - [facility] Metformin Metformin Yes Kaylee TAKE 1 Co mmon HCl HCl Chen TABLET BY Spirit MOUTH - [facility]I TWICE A St DAY WITH [facility] Triamterene Triamterene Yes Kaylee 1 tablet Common -HCTZ -HCTZ [place] in the Spirit morning - [facility] Zoloft Zoloft Yes Kaylee 2 tablets Commo n Chen Spirit - [facility] Trelegy Trelegy Yes Kaylee INHALE 1 Comm on Ellipta Ellipta Chen PUFF BY Sp eliza MOUTH - CHI EVERY DAY [facility] PredniSONE PredniSONE Yes Kaylee 1 tablet Common [place] Spirit [facility] Sertraline Sertraline Yes Kaylee TAKE 2 Common HCl HCl Chen TABLETS Spirit ONCE DAILY - [facility]I [facility] Simvastatin Simvastatin Yes Kaylee TAKE 1 Common Chen TABLET BY Spirit MOUTH - [facility]I EVERY DAY St IN THE [facility] EVENING [facility] Januvia Januvia Yes Kaylee TAKE 1 Common [place] TABLET Spirit ONCE DAILY - [facility] Albuterol Albuterol Yes Kaylee 2 puffs as Common Sulfate HFA Sulfate HFA Chen needed [facility] Pregabalin Pregabalin Yes Kaylee 1 capsule Common Chen 1 to 3 Spirit hours - [facility]I before St bedtime in [facility] [place] Yes Kaylee 1 tablet Common [place] as needed [facility] Lisinopril Lisinopril Yes Kaylee 1 tablet Common [place] [facility] Simvastatin Simvastatin Yes Kaylee 1 tablet Common [place] in the [facility] evening - [facility] Baclofen Baclofen Yes Kaylee not Common [place] defined [facility] metFORMIN metFORMIN No metFORMIN HCl 1000 MG HCl 1000 MG HCl 1000 MG [place] No 1{table QID [place] 10-325 MG 10-325 MG t_as_ne 10-325 MG eded} Zoloft 100 Zoloft 100 No 1{table QD Zoloft 100 MG MG t} MG Pregabalin Pregabalin No 1{capsu BID Pregabalin 75 MG 75 MG le} 75 MG Baclofen Baclofen No Baclofen Lisinopril Lisinopril No 1{table QD Lisinopril 5 MG 5 MG t} 5 MG Simvastatin Simvastatin No 1{table QD Simvastati 80 MG 80 MG t_in_ n 80 MG e_eveni ng} metFORMIN metFORMIN No metFORMIN HCl 1000 MG HCl 1000 MG HCl 1000 MG Albuterol Albuterol No 2{puffs QID Albuterol Sulfate HFA Sulfate HFA _as_nee Sulfate 108 (90 108 (90 ded} HFA 108 Base) Base) (90 Base) MCG/ACT MCG/ACT MCG/ACT Theophyllin Theophyllin No 3{capsu QD Theophylli e ER 100 MG e ER 100 MG les} ne ER 100 MG Triamterene Triamterene No 1{table QD Triamteren -HCTZ -HCTZ t_in_ e-HCTZ 37.5-25 MG 37.5-25 MG e_morni 37.5-25 MG ng} Trelegy Trelegy No Trelegy Ellipta Ellipta Ellipta 100-62.5-25 100-62.5-25 100-62.5-2 MCG/INH MCG/INH 5 MCG/INH Trelegy Trelegy No Trelegy Ellipta Ellipta Ellipta 100-62.5-25 100-62.5-25 100-62.5-2 MCG/INH MCG/INH 5 MCG/INH Lisinopril Lisinopril No 1{table QD Lisinopril 5 MG 5 MG t} 5 MG Zoloft 100 Zoloft 100 No 2{table QD Zoloft 100 MG MG ts} MG Sertraline Sertraline No Sertraline HCl 100 MG HCl 100 MG HCl 100 MG Triamterene Triamterene No Triamteren -HCTZ -HCTZ e-HCTZ 37.5-25 MG 37.5-25 MG 37.5-25 MG Triamterene Triamterene No 1{table QD Triamteren -HCTZ -HCTZ t_in_th e-HCTZ 37.5-25 MG 37.5-25 MG e_morni 37.5-25 MG ng} metFORMIN metFORMIN No metFORMIN HCl 1000 MG HCl 1000 MG HCl 1000 MG Flonase 50 Flonase 50 No 1{spray QD Flonase 50 MCG/ACT MCG/ACT _in_eac MCG/ACT h_nostr il} Pregabalin Pregabalin No BID Pregabalin 150 MG 150 MG 150 MG Tamsulosin Tamsulosin No 1{capsu QD Tamsulosin HCl 0.4 MG HCl 0.4 MG le} HCl 0.4 MG Albuterol Albuterol No 2{puffs QID Albuterol Sulfate HFA Sulfate HFA _as_nee Sulfate 108 (90 108 (90 ded} HFA 108 Base) Base) (90 Base) MCG/ACT MCG/ACT MCG/ACT Baclofen Baclofen No Baclofen [place] No 1{table QID [place] 10-325 MG 10-325 MG t_as_ne 10-325 MG eded} Simvastatin Simvastatin No Simvastati 80 MG 80 MG n 80 MG predniSONE predniSONE No 1{table predniSONE 2.5 MG 2.5 MG t} 2.5 MG Simvastatin Simvastatin No 1{table QD Simvastati 80 MG 80 MG t_in_th n 80 MG e_eveni ng} Trelegy Trelegy No Trelegy Ellipta Ellipta Ellipta 100-62.5-25 100-62.5-25 100-62.5-2 MCG/INH MCG/INH 5 MCG/INH Lisinopril Lisinopril No 1{table QD Lisinopril 5 MG 5 MG t} 5 MG Zoloft 100 Zoloft 100 No 2{table QD Zoloft 100 MG MG ts} MG Sertraline Sertraline No Sertraline HCl 100 MG HCl 100 MG HCl 100 MG Triamterene Triamterene No Triamteren -HCTZ -HCTZ e-HCTZ 37.5-25 MG 37.5-25 MG 37.5-25 MG Triamterene Triamterene No 1{table QD Triamteren -HCTZ -HCTZ t_in_th e-HCTZ 37.5-25 MG 37.5-25 MG e_morni 37.5-25 MG ng} metFORMIN metFORMIN No metFORMIN HCl 1000 MG HCl 1000 MG HCl 1000 MG Flonase 50 Flonase 50 No 1{spray QD Flonase 50 MCG/ACT MCG/ACT _in_eac MCG/ACT h_nostr il} Pregabalin Pregabalin No BID Pregabalin 150 MG 150 MG 150 MG Tamsulosin Tamsulosin No 1{capsu QD Tamsulosin HCl 0.4 MG HCl 0.4 MG le} HCl 0.4 MG Albuterol Albuterol No 2{puffs QID Albuterol Sulfate HFA Sulfate HFA _as_nee Sulfate 108 (90 108 (90 ded} HFA 108 Base) Base) (90 Base) MCG/ACT MCG/ACT MCG/ACT Baclofen Baclofen No Baclofen [place] No 1{table QID [place] 10-325 MG 10-325 MG t_as_ne 10-325 MG eded} Simvastatin Simvastatin No Simvastati 80 MG 80 MG n 80 MG predniSONE predniSONE No 1{table predniSONE 2.5 MG 2.5 MG t} 2.5 MG Simvastatin Simvastatin No 1{table QD Simvastati 80 MG 80 MG t_in_th n 80 MG e_eveni ng} [place] No 1{table QID [place] 10-325 MG 10-325 MG t_as_ne 10-325 MG eded} Baclofen Baclofen No Baclofen Tamsulosin Tamsulosin No 1{capsu QD Tamsulosin HCl 0.4 MG HCl 0.4 MG le} HCl 0.4 MG predniSONE predniSONE No 1{table predniSONE 2.5 MG 2.5 MG t} 2.5 MG Lisinopril Lisinopril No Lisinopril 5 MG 5 MG 5 MG Simvastatin Simvastatin No Simvastati 80 MG 80 MG n 80 MG Albuterol Albuterol No 2{puffs QID Albuterol Sulfate HFA Sulfate HFA _as_nee Sulfate 108 (90 108 (90 ded} HFA 108 Base) Base) (90 Base) MCG/ACT MCG/ACT MCG/ACT Zoloft 100 Zoloft 100 No 2{table QD Zoloft 100 MG MG ts} MG metFORMIN metFORMIN No metFORMIN HCl 1000 MG HCl 1000 MG HCl 1000 MG Flonase 50 Flonase 50 No 1{spray QD Flonase 50 MCG/ACT MCG/ACT _in_eac MCG/ACT h_nostr il} Sertraline Sertraline No Sertraline HCl 100 MG HCl 100 MG HCl 100 MG Triamterene Triamterene No Triamteren -HCTZ -HCTZ e-HCTZ 37.5-25 MG 37.5-25 MG 37.5-25 MG Pregabalin Pregabalin No BID Pregabalin 150 MG 150 MG 150 MG Trelegy Trelegy No Trelegy Ellipta Ellipta Ellipta 100-62.5-25 100-62.5-25 100-62.5-2 MCG/INH MCG/INH 5 MCG/INH Tamsulosin Tamsulosin No 1{capsu QD Tamsulosin HCl 0.4 MG HCl 0.4 MG le} HCl 0.4 MG Triamterene Triamterene No Triamteren -HCTZ -HCTZ e-HCTZ 37.5-25 MG 37.5-25 MG 37.5-25 MG predniSONE predniSONE No 1{table predniSONE 2.5 MG 2.5 MG t} 2.5 MG HYDROcodone HYDROcodone No 1{table QID HYDROcodon -Acetaminop -Acetaminop t_as_ne e-Acetamin hen 7.5-325 hen 7.5-325 eded} ophen MG MG 7.5-325 MG Zoloft 100 Zoloft 100 No 2{table QD Zoloft 100 MG MG ts} MG Benzonatate Benzonatate No Benzonatat e metFORMIN metFORMIN No metFORMIN HCl 1000 MG HCl 1000 MG HCl 1000 MG Levofloxaci Levofloxaci No 1{table QD Levofloxac n 500 MG n 500 MG t} in 500 MG Trelegy Trelegy No Trelegy Ellipta Ellipta Ellipta 100-62.5-25 100-62.5-25 100-62.5-2 MCG/INH MCG/INH 5 MCG/INH Albuterol Albuterol No 2{puffs QID Albuterol Sulfate HFA Sulfate HFA _as_nee Sulfate 108 (90 108 (90 ded} HFA 108 Base) Base) (90 Base) MCG/ACT MCG/ACT MCG/ACT Pregabalin Pregabalin No BID Pregabalin 150 MG 150 MG 150 MG [place] No 1{table QID [place] 10-325 MG 10-325 MG t_as_ne 10-325 MG eded} Flonase 50 Flonase 50 No 1{spray QD Flonase 50 MCG/ACT MCG/ACT _in_eac MCG/ACT h_nostr il} Lisinopril Lisinopril No 1{table QD Lisinopril 5 MG 5 MG t} 5 MG Simvastatin Simvastatin No Simvastati 80 MG 80 MG n 80 MG Nebulizer Nebulizer No Nebulizer Compressor Compressor Compressor Baclofen Baclofen No Baclofen Apixaban 5 Apixaban 5 No Apixaban 5 MG MG MG metFORMIN metFORMIN No metFORMIN HCl 1000 MG HCl 1000 MG HCl 1000 MG Sertraline Sertraline No Sertraline HCl 100 MG HCl 100 MG HCl 100 MG Simvastatin Simvastatin No 1{table QD Simvastati 80 MG 80 MG t_in_th n 80 MG e_eveni ng} Triamterene Triamterene No 1{table QD Triamteren -HCTZ -HCTZ t_in_th e-HCTZ 37.5-25 MG 37.5-25 MG e_morni 37.5-25 MG ng} Lisinopril Lisinopril No Lisinopril 5 MG 5 MG 5 MG metFORMIN metFORMIN No metFORMIN HCl 1000 MG HCl 1000 MG HCl 1000 MG metFORMIN metFORMIN No metFORMIN HCl 1000 MG HCl 1000 MG HCl 1000 MG predniSONE predniSONE No 1{table predniSONE 2.5 MG 2.5 MG t} 2.5 MG Flonase 50 Flonase 50 No 1{spray QD Flonase 50 MCG/ACT MCG/ACT _in_eac MCG/ACT h_nostr il} Levofloxaci Levofloxaci No 1{table QD Levofloxac n 500 MG n 500 MG t} in 500 MG Tamsulosin Tamsulosin No 1{capsu QD Tamsulosin HCl 0.4 MG HCl 0.4 MG le} HCl 0.4 MG [place] No 1{table QID [place] 10-325 MG 10-325 MG t_as_ne 10-325 MG eded} Zoloft 100 Zoloft 100 No 2{table QD Zoloft 100 MG MG ts} MG Benzonatate Benzonatate No Benzonatat e Simvastatin Simvastatin No Simvastati 80 MG 80 MG n 80 MG Lisinopril Lisinopril No 1{table QD Lisinopril 5 MG 5 MG t} 5 MG Lisinopril Lisinopril No Lisinopril 5 MG 5 MG 5 MG Baclofen Baclofen No Baclofen Triamterene Triamterene No Triamteren -HCTZ -HCTZ e-HCTZ 37.5-25 MG 37.5-25 MG 37.5-25 MG Sertraline Sertraline No Sertraline HCl 100 MG HCl 100 MG HCl 100 MG Simvastatin Simvastatin No 1{table QD Simvastati 80 MG 80 MG t_in_th n 80 MG e_eveni ng} Trelegy Trelegy No Trelegy Ellipta Ellipta Ellipta 100-62.5-25 100-62.5-25 100-62.5-2 MCG/INH MCG/INH 5 MCG/INH Apixaban 5 Apixaban 5 No Apixaban 5 MG MG MG Triamterene Triamterene No 1{table QD Triamteren -HCTZ -HCTZ t_in_th e-HCTZ 37.5-25 MG 37.5-25 MG e_morni 37.5-25 MG ng} HYDROcodone HYDROcodone No 1{table QID HYDROcodon -Acetaminop -Acetaminop t_as_ne e-Acetamin hen 7.5-325 hen 7.5-325 eded} ophen MG MG 7.5-325 MG Albuterol Albuterol No 2{puffs QID Albuterol Sulfate HFA Sulfate HFA _as_nee Sulfate 108 (90 108 (90 ded} HFA 108 Base) Base) (90 Base) MCG/ACT MCG/ACT MCG/ACT Nebulizer Nebulizer No Nebulizer Compressor Compressor Compressor Baclofen Baclofen No Baclofen HYDROcodone HYDROcodone No 1{table QID HYDROcodon -Acetaminop -Acetaminop t_as_ne e-Acetamin hen 7.5-325 hen 7.5-325 eded} ophen MG MG 7.5-325 MG Zoloft 100 Zoloft 100 No 2{table QD Zoloft 100 MG MG ts} MG Albuterol Albuterol No 2{puffs QID Albuterol Sulfate HFA Sulfate HFA _as_nee Sulfate 108 (90 108 (90 ded} HFA 108 Base) Base) (90 Base) MCG/ACT MCG/ACT MCG/ACT Tamsulosin Tamsulosin No 1{capsu QD Tamsulosin HCl 0.4 MG HCl 0.4 MG le} HCl 0.4 MG Levofloxaci Levofloxaci No 1{table QD Levofloxac n 500 MG n 500 MG t} in 500 MG predniSONE predniSONE No 1{table predniSONE 2.5 MG 2.5 MG t} 2.5 MG Trelegy Trelegy No Trelegy Ellipta Ellipta Ellipta 100-62.5-25 100-62.5-25 100-62.5-2 MCG/INH MCG/INH 5 MCG/INH Sertraline Sertraline No Sertraline HCl 100 MG HCl 100 MG HCl 100 MG metFORMIN metFORMIN No metFORMIN HCl 1000 MG HCl 1000 MG HCl 1000 MG Simvastatin Simvastatin No Simvastati 80 MG 80 MG n 80 MG Nebulizer Nebulizer No Nebulizer Compressor Compressor Compressor [place] No 1{table QID [place] 10-325 MG 10-325 MG t_as_ne 10-325 MG eded} Flonase 50 Flonase 50 No 1{spray QD Flonase 50 MCG/ACT MCG/ACT _in_eac MCG/ACT h_nostr il} Triamterene Triamterene No Triamteren -HCTZ -HCTZ e-HCTZ 37.5-25 MG 37.5-25 MG 37.5-25 MG Apixaban 5 Apixaban 5 No Apixaban 5 MG MG MG Lisinopril Lisinopril No Lisinopril 5 MG 5 MG 5 MG Benzonatate Benzonatate No Benzonatat e Baclofen Baclofen No Baclofen HYDROcodone HYDROcodone No 1{table QID HYDROcodon -Acetaminop -Acetaminop t_as_ne e-Acetamin hen 7.5-325 hen 7.5-325 eded} ophen MG MG 7.5-325 MG Zoloft 100 Zoloft 100 No 2{table QD Zoloft 100 MG MG ts} MG Albuterol Albuterol No 2{puffs QID Albuterol Sulfate HFA Sulfate HFA _as_nee Sulfate 108 (90 108 (90 ded} HFA 108 Base) Base) (90 Base) MCG/ACT MCG/ACT MCG/ACT Tamsulosin Tamsulosin No 1{capsu QD Tamsulosin HCl 0.4 MG HCl 0.4 MG le} HCl 0.4 MG Levofloxaci Levofloxaci No 1{table QD Levofloxac n 500 MG n 500 MG t} in 500 MG predniSONE predniSONE No 1{table predniSONE 2.5 MG 2.5 MG t} 2.5 MG Trelegy Trelegy No Trelegy Ellipta Ellipta Ellipta 100-62.5-25 100-62.5-25 100-62.5-2 MCG/INH MCG/INH 5 MCG/INH Sertraline Sertraline No Sertraline HCl 100 MG HCl 100 MG HCl 100 MG metFORMIN metFORMIN No metFORMIN HCl 1000 MG HCl 1000 MG HCl 1000 MG Simvastatin Simvastatin No Simvastati 80 MG 80 MG n 80 MG Nebulizer Nebulizer No Nebulizer Compressor Compressor Compressor [place] No 1{table QID [place] 10-325 MG 10-325 MG t_as_ne 10-325 MG eded} Flonase 50 Flonase 50 No 1{spray QD Flonase 50 MCG/ACT MCG/ACT _in_eac MCG/ACT h_nostr il} Triamterene Triamterene No Triamteren -HCTZ -HCTZ e-HCTZ 37.5-25 MG 37.5-25 MG 37.5-25 MG Apixaban 5 Apixaban 5 No Apixaban 5 MG MG MG Lisinopril Lisinopril No Lisinopril 5 MG 5 MG 5 MG Benzonatate Benzonatate No Benzonatat e Tamsulosin Tamsulosin No 1{capsu QD Tamsulosin HCl 0.4 MG HCl 0.4 MG le} HCl 0.4 MG Baclofen Baclofen No Baclofen predniSONE predniSONE No 1{table predniSONE 2.5 MG 2.5 MG t} 2.5 MG Zoloft 100 Zoloft 100 No 2{table QD Zoloft 100 MG MG ts} MG Nebulizer Nebulizer No Nebulizer Compressor Compressor Compressor metFORMIN metFORMIN No metFORMIN HCl 1000 MG HCl 1000 MG HCl 1000 MG Sertraline Sertraline No Sertraline HCl 100 MG HCl 100 MG HCl 100 MG Levofloxaci Levofloxaci No 1{table QD Levofloxac n 500 MG n 500 MG t} in 500 MG Trelegy Trelegy No Trelegy Ellipta Ellipta Ellipta 100-62.5-25 100-62.5-25 100-62.5-2 MCG/INH MCG/INH 5 MCG/INH [place] No 1{table QID [place] 10-325 MG 10-325 MG t_as_ne 10-325 MG eded} Triamterene Triamterene No Triamteren -HCTZ -HCTZ e-HCTZ 37.5-25 MG 37.5-25 MG 37.5-25 MG Lisinopril Lisinopril No Lisinopril 5 MG 5 MG 5 MG HYDROcodone HYDROcodone No 1{table QID HYDROcodon -Acetaminop -Acetaminop t_as_ne e-Acetamin hen 7.5-325 hen 7.5-325 eded} ophen MG MG 7.5-325 MG Albuterol Albuterol No 2{puffs QID Albuterol Sulfate HFA Sulfate HFA _as_nee Sulfate 108 (90 108 (90 ded} HFA 108 Base) Base) (90 Base) MCG/ACT MCG/ACT MCG/ACT Benzonatate Benzonatate No Benzonatat e Apixaban 5 Apixaban 5 No Apixaban 5 MG MG MG Flonase 50 Flonase 50 No 1{spray QD Flonase 50 MCG/ACT MCG/ACT _in_eac MCG/ACT h_nostr il} Simvastatin Simvastatin No Simvastati 80 MG 80 MG n 80 MG Simvastatin Simvastatin No 1{table QD Simvastati 80 MG 80 MG t_in_th n 80 MG e_eveni ng} Albuterol Albuterol No 2{puffs QID Albuterol Sulfate HFA Sulfate HFA _as_nee Sulfate 108 (90 108 (90 ded} HFA 108 Base) Base) (90 Base) MCG/ACT MCG/ACT MCG/ACT Trelegy Trelegy No Trelegy Ellipta Ellipta Ellipta 100-62.5-25 100-62.5-25 100-62.5-2 MCG/INH MCG/INH 5 MCG/INH Zoloft 100 Zoloft 100 No 2{table QD Zoloft 100 MG MG ts} MG Triamterene Triamterene No 1{table QD Triamteren -HCTZ -HCTZ t_in_th e-HCTZ 37.5-25 MG 37.5-25 MG e_morni 37.5-25 MG ng} metFORMIN metFORMIN No metFORMIN HCl 1000 MG HCl 1000 MG HCl 1000 MG Baclofen Baclofen No Baclofen Pregabalin Pregabalin No 1{capsu BID Pregabalin 75 MG 75 MG le} 75 MG [place] No 1{table QID [place] 10-325 MG 10-325 MG t_as_ne 10-325 MG eded} Lisinopril Lisinopril No 1{table QD Lisinopril 5 MG 5 MG t} 5 MG Simvastatin Simvastatin No 1{table QD Simvastati 80 MG 80 MG t_in_th n 80 MG e_eveni ng} Albuterol Albuterol No 2{puffs QID Albuterol Sulfate HFA Sulfate HFA _as_nee Sulfate 108 (90 108 (90 ded} HFA 108 Base) Base) (90 Base) MCG/ACT MCG/ACT MCG/ACT Trelegy Trelegy No Trelegy Ellipta Ellipta Ellipta 100-62.5-25 100-62.5-25 100-62.5-2 MCG/INH MCG/INH 5 MCG/INH Zoloft 100 Zoloft 100 No 2{table QD Zoloft 100 MG MG ts} MG Triamterene Triamterene No 1{table QD Triamteren -HCTZ -HCTZ t_in_th e-HCTZ 37.5-25 MG 37.5-25 MG e_morni 37.5-25 MG ng} metFORMIN metFORMIN No metFORMIN HCl 1000 MG HCl 1000 MG HCl 1000 MG Baclofen Baclofen No Baclofen Pregabalin Pregabalin No 1{capsu BID Pregabalin 75 MG 75 MG le} 75 MG [place] No 1{table QID [place] 10-325 MG 10-325 MG t_as_ne 10-325 MG eded} Lisinopril Lisinopril No 1{table QD Lisinopril 5 MG 5 MG t} 5 MG Simvastatin Simvastatin No 1{table QD Simvastati 80 MG 80 MG t_in_th n 80 MG e_eveni ng} Albuterol Albuterol No 2{puffs QID Albuterol Sulfate HFA Sulfate HFA _as_nee Sulfate 108 (90 108 (90 ded} HFA 108 Base) Base) (90 Base) MCG/ACT MCG/ACT MCG/ACT Trelegy Trelegy No Trelegy Ellipta Ellipta Ellipta 100-62.5-25 100-62.5-25 100-62.5-2 MCG/INH MCG/INH 5 MCG/INH Zoloft 100 Zoloft 100 No 2{table QD Zoloft 100 MG MG ts} MG Triamterene Triamterene No 1{table QD Triamteren -HCTZ -HCTZ t_in_th e-HCTZ 37.5-25 MG 37.5-25 MG e_morni 37.5-25 MG ng} metFORMIN metFORMIN No metFORMIN HCl 1000 MG HCl 1000 MG HCl 1000 MG Baclofen Baclofen No Baclofen Pregabalin Pregabalin No 1{capsu BID Pregabalin 75 MG 75 MG le} 75 MG [place] No 1{table QID [place] 10-325 MG 10-325 MG t_as_ne 10-325 MG eded} Lisinopril Lisinopril No 1{table QD Lisinopril 5 MG 5 MG t} 5 MG Simvastatin Simvastatin No 1{table QD Simvastati 80 MG 80 MG t_in_th n 80 MG e_eveni ng} Albuterol Albuterol No 2{puffs QID Albuterol Sulfate HFA Sulfate HFA _as_nee Sulfate 108 (90 108 (90 ded} HFA 108 Base) Base) (90 Base) MCG/ACT MCG/ACT MCG/ACT Trelegy Trelegy No Trelegy Ellipta Ellipta Ellipta 100-62.5-25 100-62.5-25 100-62.5-2 MCG/INH MCG/INH 5 MCG/INH Zoloft 100 Zoloft 100 No 2{table QD Zoloft 100 MG MG ts} MG Triamterene Triamterene No 1{table QD Triamteren -HCTZ -HCTZ t_in_th e-HCTZ 37.5-25 MG 37.5-25 MG e_morni 37.5-25 MG ng} Lisinopril Lisinopril No 1{table QD Lisinopril 5 MG 5 MG t} 5 MG Baclofen Baclofen No Baclofen Pregabalin Pregabalin No 1{capsu BID Pregabalin 75 MG 75 MG le} 75 MG [place] No 1{table QID [place] 10-325 MG 10-325 MG t_as_ne 10-325 MG eded} metFORMIN metFORMIN No metFORMIN HCl 1000 MG HCl 1000 MG HCl 1000 MG metFORMIN metFORMIN No metFORMIN HCl 1000 MG HCl 1000 MG HCl 1000 MG [place] No 1{table QID [place] 10-325 MG 10-325 MG t_as_ne 10-325 MG eded} Zoloft 100 Zoloft 100 No 1{table QD Zoloft 100 MG MG t} MG Pregabalin Pregabalin No 1{capsu BID Pregabalin 75 MG 75 MG le} 75 MG [place] No [place] Lisinopril Lisinopril No 1{table QD Lisinopril 5 MG 5 MG t} 5 MG Simvastatin Simvastatin No 1{table QD Simvastati 80 MG 80 MG t_in_th n 80 MG e_eveni ng} metFORMIN metFORMIN No metFORMIN HCl 1000 MG HCl 1000 MG HCl 1000 MG Albuterol Albuterol No 2{puffs QID Albuterol Sulfate HFA Sulfate HFA _as_nee Sulfate 108 (90 108 (90 ded} HFA 108 Base) Base) (90 Base) MCG/ACT MCG/ACT MCG/ACT Theophyllin Theophyllin No 3{capsu QD Theophylli e ER 100 MG e ER 100 MG les} ne ER 100 MG Triamterene Triamterene No 1{table QD Triamteren -HCTZ -HCTZ t_in_th e-HCTZ 37.5-25 MG 37.5-25 MG e_morni 37.5-25 MG ng} Trelegy Trelegy No Trelegy Ellipta Ellipta Ellipta 100-62.5-25 100-62.5-25 100-62.5-2 MCG/INH MCG/INH 5 MCG/INH Triamterene Triamterene No 1{table QD Triamteren -HCTZ -HCTZ t_in_th e-HCTZ 37.5-25 MG 37.5-25 MG e_morni 37.5-25 MG ng} Trintellix Trintellix No 1{table QD Trintellix 10 MG 10 MG t} 10 MG Baclofen Baclofen No Baclofen Lisinopril Lisinopril No Lisinopril 5 MG 5 MG 5 MG Zoloft 100 Zoloft 100 No 1{table QD Zoloft 100 MG MG t} MG metFORMIN metFORMIN No metFORMIN HCl 1000 MG HCl 1000 MG HCl 1000 MG Trelegy Trelegy No Trelegy Ellipta Ellipta Ellipta 100-62.5-25 100-62.5-25 100-62.5-2 MCG/INH MCG/INH 5 MCG/INH Lisinopril Lisinopril No 1{table QD Lisinopril 5 MG 5 MG t} 5 MG predniSONE predniSONE No 1{table QD predniSONE 20 MG 20 MG t} 20 MG Levofloxaci Levofloxaci No 1{table QD Levofloxac n 500 MG n 500 MG t} in 500 MG [place] No 1{table QID [place] 10-325 MG 10-325 MG t_as_ne 10-325 MG eded} Simvastatin Simvastatin No 1{table QD Simvastati 80 MG 80 MG t_in_th n 80 MG e_eveni ng} Pregabalin Pregabalin No 1{capsu BID Pregabalin 75 MG 75 MG le} 75 MG Diclofenac Diclofenac No Diclofenac Sodium 1 % Sodium 1 % Sodium 1 % metFORMIN metFORMIN No metFORMIN HCl 1000 MG HCl 1000 MG HCl 1000 MG Albuterol Albuterol No 2{puffs QID Albuterol Sulfate HFA Sulfate HFA _as_nee Sulfate 108 (90 108 (90 ded} HFA 108 Base) Base) (90 Base) MCG/ACT MCG/ACT MCG/ACT Theophyllin Theophyllin No 3{capsu QD Theophylli e ER 100 MG e ER 100 MG les} ne ER 100 MG Trintellix Trintellix No Trintellix 10 MG 10 MG 10 MG Simvastatin Simvastatin No 1{table QD Simvastati 80 MG 80 MG t_in_th n 80 MG e_eveni ng} Albuterol Albuterol No 2{puffs QID Albuterol Sulfate HFA Sulfate HFA _as_nee Sulfate 108 (90 108 (90 ded} HFA 108 Base) Base) (90 Base) MCG/ACT MCG/ACT MCG/ACT Trelegy Trelegy No Trelegy Ellipta Ellipta Ellipta 100-62.5-25 100-62.5-25 100-62.5-2 MCG/INH MCG/INH 5 MCG/INH Zoloft 100 Zoloft 100 No 2{table QD Zoloft 100 MG MG ts} MG Triamterene Triamterene No 1{table QD Triamteren -HCTZ -HCTZ t_in_th e-HCTZ 37.5-25 MG 37.5-25 MG e_morni 37.5-25 MG ng} Lisinopril Lisinopril No 1{table QD Lisinopril 5 MG 5 MG t} 5 MG Baclofen Baclofen No Baclofen Pregabalin Pregabalin No 1{capsu BID Pregabalin 75 MG 75 MG le} 75 MG [place] No 1{table QID [place] 10-325 MG 10-325 MG t_as_ne 10-325 MG eded} metFORMIN metFORMIN No metFORMIN HCl 1000 MG HCl 1000 MG HCl 1000 MG Immunizations Ordered Immunization Filled Immunization Date Status Commen ts Source Name Name FLUZONE HIGH DOSE FLUZONE HIGH DOSE 2021-12-03 [facility] OVER [facility] 10:08:00 - [facility] FLUZONE HIGH DOSE FLUZONE HIGH DOSE 2020-11-14 [facility]pleted [facility] OVER 65 OVER 65 10:39:00 - [facility] FLUZONE HIGH DOSE FLUZONE HIGH DOSE 2020-11-14 [facility]pleted [facility] OVER 65 OVER 65 10:39:00 - [facility] FLUZONE HIGH DOSE FLUZONE HIGH DOSE 2020-11-14 [facility]pleted [facility] OVER 65 OVER 65 10:39:00 - [facility] FLUZONE HIGH DOSE FLUZONE HIGH DOSE 2020-11-14 [facility]pleted [facility] OVER 65 OVER 65 10:39:00 - [facility] FLUZONE HIGH DOSE FLUZONE HIGH DOSE 2020-11-14 Completed [facility] OVER 65 OVER 65 10:39:00 - [facility] FLUZONE HIGH DOSE FLUZONE HIGH DOSE 2020-11-14 [facility]pleted [facility] OVER 65 OVER 65 10:39:00 - [facility] FLUZONE HIGH DOSE FLUZONE HIGH DOSE 2020-11-14 Completed [facility] OVER 65 OVER 65 10:39:00 - [facility] FLUZONE HIGH DOSE FLUZONE HIGH DOSE 2020-11-14 [facility]pleted [facility] OVER 65 OVER 65 10:39:00 - [facility] FLUZONE HIGH DOSE FLUZONE HIGH DOSE 2020-11-14 Completed [facility] OVER 65 OVER 65 10:39:00 - [facility] FLUZONE HIGH DOSE FLUZONE HIGH DOSE 2020-11-14 [facility]pleted [facility] OVER 65 OVER 65 10:39:00 - [facility] FLUZONE HIGH DOSE FLUZONE HIGH DOSE 2020-11-14 Completed [facility] OVER 65 OVER 65 10:39:00 - [facility] FLUZONE HIGH DOSE FLUZONE HIGH DOSE 2020-11-14 Completed [facility] OVER 65 OVER 65 10:39:00 - [facility] FLUZONE HIGH DOSE FLUZONE HIGH DOSE 2020-11-14 Completed [facility] OVER 65 OVER 65 10:39:00 - [facility] FLUZONE HIGH DOSE FLUZONE HIGH DOSE 2020-11-14 Completed [facility] OVER 65 OVER 65 10:39:00 - [facility] FLUZONE HIGH DOSE FLUZONE HIGH DOSE 2020-11-14 Completed [facility] OVER 65 OVER 65 10:39:00 [facility] FLUZONE HIGH DOSE FLUZONE HIGH DOSE 2020-11-14 [facility]pleted [facility] OVER 65 OVER 65 10:39:00 [facility] Moderna COVID-19 Moderna COVID-19 2020-05-09 Completed [facility] Vaccine Vaccine 13:48:00 - [facility] Moderna COVID-19 Moderna COVID-19 2020-05-09 Completed [facility] Vaccine 13:48:00 - [facility] Moderna COVID-19 Moderna COVID-19 2020-05-09 Completed [facility] Vaccine Vaccine 13:48:00 - [facility] Moderna COVID-19 Moderna COVID-19 2020-05-09 Completed [facility] Vaccine Vaccine 13:48:00 - [facility] Moderna COVID-19 Moderna COVID-19 2020-05-09 Completed [facility] Vaccine Vaccine 13:48:00 - [facility] Moderna COVID-19 Moderna COVID-19 2020-05-09 Completed [facility] Vaccine Vaccine 13:48:00 - [facility] Moderna COVID-19 Moderna COVID-19 2020-05-09 Completed [facility] Vaccine Vaccine 13:48:00 - [facility] Moderna COVID-19 Moderna COVID-19 2020-05-09 Completed [facility] Vaccine Vaccine 13:48:00 - [facility] Moderna COVID-19 Moderna COVID-19 2020-05-09 Completed [facility] Vaccine Vaccine 13:48:00 - [facility] Moderna COVID-19 Moderna COVID-19 2020-05-09 Completed [facility] Vaccine Vaccine 13:48:00 - [facility] Moderna COVID-19 Moderna COVID-19 2020-05-09 Completed [facility] Vaccine Vaccine 13:48:00 - [facility] Moderna COVID-19 Moderna COVID-19 2020-05-09 Completed [facility] Vaccine Vaccine 13:48:00 - [facility] Moderna COVID-19 Moderna COVID-19 2020-05-09 Completed [facility] Vaccine Vaccine 13:48:00 - [facility] Moderna COVID-19 Moderna COVID-19 2020-05-09 Completed [facility] Vaccine Vaccine 13:48:00 - [facility] Moderna COVID-19 Moderna COVID-19 2020-05-09 Completed [facility] Vaccine Vaccine 13:48:00 - [facility] Moderna COVID-19 Moderna COVID-19 2020-04-08 Completed [facility] Vaccine Vaccine 13:48:00 - [facility] Moderna COVID-19 Moderna COVID-19 2020-04-08 Completed [facility] Vaccine Vaccine 13:48:00 - [facility] Moderna COVID-19 Moderna COVID-19 2020-04-08 Completed [facility] Vaccine Vaccine 13:48:00 - [facility] Moderna COVID-19 Moderna COVID-19 2020-04-08 Completed [facility] Vaccine Vaccine 13:48:00 - [facility] Moderna COVID-19 Moderna COVID-19 2020-04-08 Completed [facility] Vaccine Vaccine 13:48:00 - [facility] Moderna COVID-19 Moderna COVID-19 2020-04-08 Completed [facility] Vaccine Vaccine 13:48:00 - [facility] Moderna COVID-19 Moderna COVID-19 2020-04-08 Completed [facility] Vaccine Vaccine 13:48:00 - [facility] Moderna COVID-19 Moderna COVID-19 2020-04-08 Completed [facility] Vaccine Vaccine 13:48:00 - [facility] Moderna COVID-19 Moderna COVID-19 2020-04-08 Completed [facility] Vaccine Vaccine 13:48:00 - [facility] Moderna COVID-19 Moderna COVID-19 2020-04-08 Completed [facility] Vaccine Vaccine 13:48:00 - [facility] Moderna COVID-19 Moderna COVID-19 2020-04-08 Completed [facility] Vaccine Vaccine 13:48:00 - [facility] Moderna COVID-19 Moderna COVID-19 2020-04-08 Completed [facility] Vaccine Vaccine 13:48:00 - [facility] Moderna COVID-19 Moderna COVID-19 2020-04-08 Completed [facility] Vaccine Vaccine 13:48:00 - [facility] Moderna COVID-19 Moderna COVID-19 2020-04-08 Completed [facility] Vaccine Vaccine 13:48:00 - [facility] Moderna COVID-19 Moderna COVID-19 2020-04-08 Completed [facility] Vaccine Vaccine 13:48:00 - [facility] FluAD FluAD 2020-01-17 [facility]pleted [facility] 11:24:00 - [facility] FluAD FluAD 2020-01-17 [facility]pleted [facility] 11:24:00 - [facility] FluAD FluAD 2020-01-17 Completed [facility] 11:24:00 - [facility] FluAD FluAD 2020-01-17 Completed [facility] 11:24:00 - [facility] FluAD FluAD 2020-01-17 Completed [facility] 11:24:00 - [facility] FluAD FluAD 2020-01-17 Completed [facility] 11:24:00 - [facility] FluAD FluAD 2020-01-17 Completed [facility] 11:24:00 - [facility] FluAD FluAD 2020-01-17 [facility]pleted [facility] 11:24:00 - [facility] FluAD FluAD 2020-01-17 Completed [facility] 11:24:00 - [facility] FluAD FluAD 2020-01-17 [facility]pleted [facility] 11:24:00 - [facility] FluAD FluAD 2020-01-17 [facility]pleted [facility] 11:24:00 - [facility] FluAD FluAD 2020-01-17 [facility]pleted [facility] 11:24:00 - [facility] FluAD FluAD 2020-01-17 [facility]pleted [facility] 11:24:00 - [facility] FluAD FluAD 2020-01-17 Completed [facility] 11:24:00 - [facility] FluAD FluAD 2020-01-17 Completed [facility] 11:24:00 - [facility] FluAD FluAD 2020-01-17 Completed [facility] 11:24:00 - [facility] Pneumovax (PPSV23) Pneumovax (PPSV23) 2017-11-08 Completed [facility] 13:48:00 - [facility] Pneumovax (PPSV23) Pneumovax (PPSV23) 2017-11-08 [facility]pleted [facility] 13:48:00 - [facility] Pneumovax (PPSV23) Pneumovax (PPSV23) 2017-11-08 [facility]pleted [facility] 13:48:00 [facility] Pneumovax (PPSV23) Pneumovax (PPSV23) 2017-11-08 [facility]pleted [facility] 13:48:00 - [facility] Pneumovax (PPSV23) Pneumovax (PPSV23) 2017-11-08 [facility]pleted [facility] 13:48:00 [facility] Pneumovax (PPSV23) Pneumovax (PPSV23) 2017-11-08 [facility] 13:48:00 [facility] Pneumovax (PPSV23) Pneumovax (PPSV23) 2017-11-08 [facility]pleted [facility] 13:48:00 - [facility] Pneumovax (PPSV23) Pneumovax (PPSV23) 2017-11-08 [facility]pleted [facility] 13:48:00 - [facility] Pneumovax (PPSV23) Pneumovax (PPSV23) 2017-11-08 [facility]pleted [facility] 13:48:00 - [facility] Pneumovax (PPSV23) Pneumovax (PPSV23) 2017-11-08 [facility]pleted [facility] 13:48:00 [facility] Pneumovax (PPSV23) Pneumovax (PPSV23) 2017-11-08 [facility]pleted [facility] 13:48:00 - [facility] Pneumovax (PPSV23) Pneumovax (PPSV23) 2017-11-08 [facility]pleted [facility] 13:48:00 [facility] Pneumovax (PPSV23) Pneumovax (PPSV23) 2017-11-08 [facility]pleted [facility] 13:48:00 [facility] Pneumovax (PPSV23) Pneumovax (PPSV23) 2017-11-08 [facility]pleted [facility] 13:48:00 [facility] Pneumovax (PPSV23) Pneumovax (PPSV23) 2017-11-08 [facility]pleted [facility] 13:48:00 [facility] Vital Signs Vital Name Observation Time Observation Value Comments Source height 2021-12-03 09:50:00 66.5 [in_i] [facility] 2021-12-03 09:50:00 156.0 [lb_av] Common [facility] temperature 2021-12-03 09:50:00 97.2 [degF] [facility] bmi 2021-12-03 09:50:00 24.8 kg/m2 [facility] oximetry 2021-12-03 09:50:00 98 % [facility] respiratory rate 2021-12-03 09:50:00 18 /min Comm on [facility] blood pressure 2021-12-03 09:50:00 129 mm[Hg] Common [facility] - systolic [facility] blood pressure 2021-12-03 09:50:00 59 mm[Hg] Common [facility] - diastolic [facility] height 2021-11-04 13:00:00 66.5 [in_i] Common [facility] weight 2021-11-04 13:00:00 156.3 [lb_av] Common [facility] temperature 2021-11-04 13:00:00 97.9 [degF] Common [facility] bmi 2021-11-04 13:00:00 24.85 kg/m2 [facility] oximetry 2021-11-04 13:00:00 96 % Common [facility] respiratory rate 2021-11-04 13:00:00 17 /min Comm on [facility] blood pressure 2021-11-04 13:00:00 132 mm[Hg] [facility] - systolic [facility] blood pressure 2021-11-04 13:00:00 67 mm[Hg] [facility] - diastolic [facility] height 2021-09-04 13:30:00 66.5 [in_i] [facility] weight 2021-09-04 13:30:00 156 [lb_av] [facility] 2021-09-04 13:30:00 97.6 [degF] [facility] bmi 2021-09-04 13:30:00 24.8 [facility] oximetry 2021-09-04 13:30:00 96 % [facility] respiratory rate 2021-09-04 13:30:00 16 /min Comm on [facility] blood pressure 2021-09-04 13:30:00 135 mm[Hg] [facility] - systolic [facility] blood pressure 2021-09-04 13:30:00 63 mm[Hg] [facility] - diastolic [facility] height 2021-09-04 14:00:00 66.5 [in_i] [facility] weight 2021-09-04 14:00:00 156 [lb_av] Common [facility] temperature 2021-09-04 14:00:00 97.6 [degF] [facility] bmi 2021-09-04 14:00:00 24.8 kg/m2 [facility] oximetry 2021-09-04 14:00:00 96 % [facility] S [facility] respiratory rate 2021-09-04 14:00:00 16 /min Comm on [facility] blood pressure 2021-09-04 14:00:00 135 mm[Hg] Common [facility] - systolic [facility] blood pressure 2021-09-04 14:00:00 63 mm[Hg] [facility] - diastolic [facility] height 2021-05-27 11:40:00 68 [in_i] [facility] weight 2021-05-27 11:40:00 172 [lb_av] [facility] bmi 2021-05-27 11:40:00 26.15 kg/m2 [facility] height 2021-02-10 09:30:00 68 [in_i] [facility] 2021-02-10 09:30:00 172.7 [lb_av] Common [facility] temperature 2021-02-10 09:30:00 97.3 [degF] Common [facility] bmi 2021-02-10 09:30:00 26.26 kg/m2 [facility] oximetry 2021-02-10 09:30:00 99 % [facility] respiratory rate 2021-02-10 09:30:00 17 /min Comm on [facility] blood pressure 2021-02-10 09:30:00 138 mm[Hg] [facility] - systolic [facility] blood pressure 2021-02-10 09:30:00 72 mm[Hg] [facility] - diastolic [facility] height 2021 09:00:00 68 [in_i] Common [facility] weight 2021 09:00:00 169.3 [lb_av] [facility] temperature 2021 09:00:00 97.9 [degF] [facility] bmi 2021 09:00:00 25.74 kg/m2 [facility] oximetry 2021 09:00:00 96 % [facility] respiratory rate 2021 09:00:00 16 /min Comm on [facility] blood pressure 2021 09:00:00 132 mm[Hg] [facility] - systolic [facility] blood pressure 2021 09:00:00 65 mm[Hg] [facility] - diastolic [facility] height 2020-11-14 09:00:00 68 [in_i] [facility] weight 2020-11-14 09:00:00 168.6 [lb_av] [facility] temperature 2020-11-14 09:00:00 96.7 [degF] [facility] bmi 2020-11-14 09:00:00 25.63 kg/m2 [facility] oximetry 2020-11-14 09:00:00 91 % [facility] blood pressure 2020-11-14 09:00:00 120 mm[Hg] Common [facility] - systolic [facility] blood pressure 2020-11-14 09:00:00 60 mm[Hg] [facility] - diastolic [facility] height 2020-11-14 09:00:00 68 [in_i] [facility] weight 2020-11-14 09:00:00 168.6 [lb_av] [facility] temperature 2020-11-14 09:00:00 96.7 [degF] [facility] bmi 2020-11-14 09:00:00 25.63 kg/m2 [facility] oximetry 2020-11-14 09:00:00 91 % [facility] respiratory rate 2020-11-14 09:00:00 16 /min Comm on [facility] blood pressure 2020-11-14 09:00:00 120 mm[Hg] [facility] - systolic [facility] blood pressure 2020-11-14 09:00:00 60 mm[Hg] Common [facility] - diastolic [facility] Procedures This patient has no known procedures. Encounters Start End Encounter Admission Attending Care Care Encounter Source Date/Time Date/Time Type Type Clinicians Facility Department ID 2021-12-01 Outpatient Maldonado, STLMLC STLC [id number] Common 10:32:00 Uri [id number] [facility] 2021-03-05 Outpatient Maldonado, STLMLC STLMLC [id number] [facility] 12:35:45 Uri [id number] [facility] 2021-03-05 Outpatient Maldonado, STLMLC STLMLC [id number] [facility] 12:12:17 Uri [id number] [facility] 2021-03-05 Outpatient Maldonado, STLMLC STLMLC [id number] Common 11:46:55 Uri [id number] [facility] 2021-03-05 Outpatient Maldonado, STLMLC STLMLC [id number] Common 11:25:09 Uri [id number] [facility] 2021-03-05 Outpatient Maldonado, STLMLC STLMLC [id number] Common 11:16:20 Uri [id number] [facility] 2021-03-05 Outpatient Maldonado, STLMLC STLMLC [id number] Common 11:07:31 Uri [id number] [facility] 2021-03-05 Outpatient Maldonado, STLMLC STLMLC [id number] [facility] 11:02:46 Uri [id number] [facility] 2021-12-03 2021-12-03 OFFICE STLMLC STLMLC [id number] [facility] 00:00:00 00:00:00 [facility] - CHI LEVEL [address] [place] [address] 2021-11-04 2021-11-04 OFFICE STLMLC STLMLC [id number] [facility] 00:00:00 00:00:00 [facility] - [facility] LEVEL [address] [place] [address] 2021-10-30 2021-10-30 (TEL) STLMLC STLMLC [id number] [facility] 00:00:00 00:00:00 [facility]I [facility] 2021-09-04 2021-09-04 (TEL) STLMLC STLMLC [id number] [facility] mmon 00:00:00 00:00:00 [facility] - [facility] 2021-09-04 2021-09-04 OFFICE STLMLC STLMLC [id number] [facility] 00:00:00 00:00:00 [facility] - [facility] LEVEL [address] [place] [address] 2021-09-04 2021-09-04 SUB ANNUAL STLMLC STLMLC [id number] [facility] 00:00:00 00:00:00 [facility] WELLNESS - CHI VISIT [facility] 2021-07-31 2021-07-31 (TEL) STLMLC STLMLC [id number] [facility] m[facility] 00:00:00 00:00:00 [facility] 2021-05-27 2021-05-27 OFFICE STLMLC STLMLC [id number] Co mmon 00:00:00 00:00:00 VISIT EST Sp[facility] it PT LEVEL 3 - [facility] 2021-05-27 2021-05-27 (TEL) STLMLC STLMLC [id number] Co mmon 00:00:00 00:00:00 [facility] 2021-02-10 2021-02-10 OFFICE STLMLC STLMLC [id number] [facility] 00:00:00 00:00:00 VISIT [facility] PT - CHI LEVEL 4 [facility] 2021 2021 (HOSP F/U) STLMLC STLMLC [id number] [facility] 00:00:00 00:00:00 [facility] Up - [facility] 2021-01-23 2021-01-23 (TEL) STLMLC STLMLC [id number] Co mmon 00:00:00 00:00:00 [facility] 2020-11-14 2020-11-14 OFFICE STLMLC STLMLC [id number] Co mmon 00:00:00 00:00:00 VISIT [facility] PT - CHI LEVEL 4 [facility] 2020-11-14 2020-11-14 SUB ANNUAL STLMLC STLMLC [id number] [facility] 00:00:00 00:00:00 MCR [facility] WELLNESS - [facility] VISIT [facility] 2020-08-13 2020-08-13 Outpatient STLMLC STLMLC [id number] [facility] 00:00:00 00:00:00 [facility] 2020-06-11 2020-06-11 Outpatient STLMLC STLMLC [id number] [facility] 00:00:00 00:00:00 [facility] 2020-04-23 2020-04-23 Outpatient STLMLC STLMLC [id number] [facility] 00:00:00 00:00:00 [facility] 2020-04-16 2020-04-16 Outpatient STLMLC STLMLC [id number] [facility] 00:00:00 00:00:00 [facility] 2020-04-15 2020-04-15 Outpatient STLMLC STLMLC [id number] [facility] 00:00:00 00:00:00 [facility] 2020-01-17 2020-01-17 Outpatient STLMLC STLMLC [id number] [facility] 00:00:00 00:00:00 [facility] 2020-01-15 2020-01-15 Outpatient STLMLC STLMLC [id number] [facility] 00:00:00 00:00:00 [facility] 2019-11-30 2019-11-30 Outpatient STLMLC STLMLC [id number] [facility] 00:00:00 00:00:00 [facility] 2019-11-16 2019-11-16 Outpatient STLMLC STLMLC [id number] [facility] 00:00:00 00:00:00 [facility] 2019-10-26 2019-10-26 [id number] [facility] 10:15:00 10:15:00 t Specialty/U Sp [facility] Specialty rology - [facility] /[facility] 2019-10-18 2019-10-18 [facility] [id number] Common 11:40:00 11:40:00 t Visiogen [facility] 2019-10-10 2019-10-10 [facility] [id number] Common 09:00:00 09:00:00 t Specialty/U Sp [facility] Specialty rology - [facility] /[facility] Clinic [facility] 2019-09-27 2019-09-27 [facility] [id number] Common 10:00:00 10:00:00 t Specialty/U Sp [facility] Specialty rology - [facility] /[facility] 2019-09-26 2019-09-26 [facility] [id number] Common 11:15:00 11:15:00 t Specialty/U Sp [facility] Specialty rology - [facility] /[facility] 2019-09-06 2019-09-06 [facility] [id number] Common 14:14:00 14:14:00 t Specialty/U Sp [facility] Specialty rology - [facility] /[facility] 2019-08-09 2019-08-09 [facility] [id number] Common 10:30:00 10:30:00 t Specialty/U Sp [facility] Specialty rology - [facility] /[facility] 2019-08-07 2019-08-07 [facility] [id number] Common 09:45:00 09:45:00 t Specialty/U Sp eliza Specialty rology - [facility] /[facility] 2019-07-31 2019-07-31 [facility] [id number] Common 09:29:00 09:29:00 t Specialty/U Sp eliza Specialty rology - [facility] /Urology Clinic [facility] 2019-07-27 2019-07-27 [facility] [id number] Common 13:45:00 13:45:00 t Specialty/U Sp eliza Specialty rology - [facility] /[facility] 2019-07-24 2019-07-24 [facility] [id number] Common 08:08:00 08:08:[address] [facility] 2019-07-18 2019-07-18 [facility] [id number] Common 10:30:00 10:30:[address] [facility] 2019-07-04 2019-07-04 [facility] [id number] Common 14:52:00 14:52:[address] [facility] 2019-04-13 2019-04-13 [facility] [id number] Common 09:15:00 09:15:[address] [facility] 2019-04-13 2019-04-13 [facility] [id number] Common 09:00:00 09:00:[address] [facility] 2019-03-29 2019-03-29 [id number] Common 15:50:00 15:50:[address] [facility] 2018-12-27 2018-12-27 [facility] [id number] Common 16:30:00 16:30:[address] [facility] 2018-12-19 2018-12-19 [facility] [id number] Common 16:47:00 16:47:[address] [facility] 2018-12-19 2018-12-19 [facility] [id number] Common 16:04:00 16:04:[address] [facility] 2018-10-05 2018-10-05 [facility] [id number] Common 16:53:00 16:53:[address] [facility] 2018-10-03 2018-10-03 [facility] [id number] Common 14:09:00 14:09:[address] [facility] 2018-08-02 2018-08-02 [facility] [id number] Common 10:00:00 10:00:[address] [facility] 2018-06-14 2018-06-14 [facility] [id number] Common 10:36:00 10:36:[address] [facility] 2018-04-20 2018-04-20 [facility] [id number] Common 08:30:00 08:30:[address] [facility] 2018-01-20 2018-01-20 [facility] [id number] Common 08:30:00 08:30:[address] [facility] 2018-01-19 2018-01-19 [facility] [id number] Common 10:01:00 10:01:[address] [facility] 2017-11-02 2017-11-02 [facility] [id number] Common 13:45:00 13:45:[address] [facility] 2017-08-10 2017-08-10 [facility] [id number] Common 14:45:00 14:45:[address] [facility] 2017-05-28 2017-05-28 [facility] [id number] Common 10:15:00 10:15:[address] [facility] Results This patient has no known results.
[2021-12-27] MEDS ORDERED: IPRATROPIUM BROM 0.5MG/2.5ML ONE (13:10)
[2021-12-27] MEDS ORDERED: ALBUTEROL 2.5 MG/3 ML NEB SOL ONE ×2 (13:10→13:19)
[2021-12-27 13:21] LABS: Absolute Lymphocytes (CBC) 2.3 K/uL (0.7-4.9); Hematocrit 41.9 % (39.6-49.0); Lymphocytes % 10.1 % (15.3-44.8); MCV 87.3 fL (80-100); MPV 6.9 fL (7.6-11.3)
[2021-12-27 13:24] LABS: Protime INR 1.06
[2021-12-27 13:35] LABS: Arterial Blood Carboxyhemoglob 1.3 % (0-1.5); Blood Gas Oxyhemoglobin 96.2 % (94-97); Blood O2 Saturation 98.7 % (92-98.5)
[2021-12-27 13:37] LABS: Albumin 3.8 g/dL (3.4-5.0); Bilirubin Direct 0.2 mg/dL (0-0.2); Bilirubin Total 0.6 mg/dL (0.2-1.0); CKMB Creatine Kinase MB 2.1 ng/mL (1.0-3.6); Magnesium 2.1 mg/dL (1.8-2.4); Potassium 5.3 mmol/L (3.5-5.1); Protein, Total 7.7 g/dL (6.4-8.2); Troponin High Sensitivity 11.3 pg/mL (<58.9)
--- NOTE | 2021-12-27 13:51 | RAD REPORT ---
EXAM DESCRIPTION: Reginald Single View12/27/2021 1:29 pm CLINICAL HISTORY: Chest pain COMPARISON: November 2021 FINDINGS: [id number] basilar right lung opacities Additional mild bilateral reticulonodular opacities unchanged. Lungs are moderately hyperaerated. Heart is normal size IMPRESSION: Mild to moderate right basilar lung opacities probably pneumonia COPD
[2021-12-27] MEDS ORDERED: CEFEPIME 2 GM VIAL ONE (14:47)
[2021-12-27] MEDS ORDERED: NA CHLORIDE 0.9% 100 ML IV ONE (14:48)
[2021-12-27] MEDS ORDERED: VANCOMYCIN 1 GM/VIAL ONE (14:48)
[2021-12-27] MEDS ORDERED: NA CHLORIDE 0.9% 250 ML ONE (14:48)
--- NOTE | 2021-12-27 15:53 | EDPHYS ---
Physician Documentation [facility] Name: Jose Marcelino Age: 71 yrs Sex: Male : 1950 Arrival Date: 12/27/2021 Time: 12:37 Bed 20 Private MD: ED Physician Freddie Herman HPI: 12/27 15:08 This 71 yrs old Male presents to ER via EMS with complaints of Breathing Difficulty. rt 15:08 The patient has shortness of breath at rest. Onset: The symptoms/episode began/occurred rt this morning. Duration: The symptoms are continuous. The patient's shortness of breath has no apparent modifying factors. Associated signs and symptoms: Pertinent positives: non-productive cough, nausea. Severity of symptoms: At their worst the symptoms were severe. Patient presents to the ED with cough, dyspnea starting this evening, worsening throughout the morning. Denies any chest pain. Denies aggravating or alleviating factors, symptoms are severe in severity. Historical: - PMHx: 12:50 Chronic obstructive lung disease; diabetes mellitus; Hypertensive disorder; db - Immunization history:: Adult Immunizations unknown, Client reports receiving the 2nd dose of the Covid vaccine. - Social history:: Smoking status: Patient reports the use of cigarette tobacco products, states quit 4 days ago, Patient/guardian denies using tobacco. - Family history:: not pertinent. ROS: 15:08 Constitutional: Negative for fever, chills, and weight loss, Eyes: Negative for injury, rt pain, redness, and discharge, ENT: Negative for injury, pain, and discharge, Neck: Negative for injury, pain, and swelling, Cardiovascular: Negative for chest pain, palpitations, and edema, Back: Negative for injury and pain, MS/Extremity: Negative for injury and deformity, Skin: Negative for injury, rash, and discoloration, Neuro: Negative for headache, weakness, numbness, tingling, and seizure, Psych: Negative for depression, anxiety, suicide ideation, homicidal ideation, and hallucinations. 15:08 Respiratory: Positive for cough, shortness of breath. 15:08 Abdomen/GI: Positive for nausea and vomiting, Negative for abdominal pain. Exam: 15:08 Constitutional: This is a well developed, well nourished patient who is awake, alert, rt and in no acute distress. Head/Face: Normocephalic, atraumatic. Eyes: Pupils equal round and reactive to light, extra-ocular motions intact. Lids and lashes normal. Conjunctiva and sclera are non-icteric and not injected. Cornea within normal limits. Periorbital areas with no swelling, redness, or edema. ENT: Nares patent. No nasal discharge, no septal abnormalities noted. Tympanic membranes are normal and external auditory canals are clear. Oropharynx with no redness, swelling, or masses, exudates, or evidence of obstruction, uvula midline. Mucous membranes moist. Neck: Trachea midline, no thyromegaly or masses palpated, and no cervical lymphadenopathy. Supple, full range of motion without nuchal rigidity, or vertebral point tenderness. No Meningismus. Chest/axilla: Normal chest wall appearance and motion. Nontender with no deformity. No lesions are appreciated. Cardiovascular: Regular rate and rhythm with a normal S1 and S2. No gallops, murmurs, or rubs. Normal PMI, no JVD. No pulse deficits. Abdomen/GI: Soft, non-tender, with normal bowel sounds. No distension or tympany. No guarding or rebound. No evidence of tenderness throughout. Skin: Warm, dry with normal turgor. Normal color with no rashes, no lesions, and no evidence of cellulitis. MS/ Extremity: Pulses equal, no cyanosis. Neurovascular intact. Full, normal range of motion. Neuro: Awake and alert, GCS 15, oriented to person, place, time, and situation. Cranial nerves II-XII grossly intact. Motor strength 5/5 in all extremities. Sensory grossly intact. Cerebellar exam normal. Normal gait. Psych: Awake, alert, with orientation to person, place and time. Behavior, mood, and affect are within normal limits. 15:08 ECG was reviewed by the Attending Physician. 15:08 Respiratory: Wheezes and decreased breath sounds in all lung [place], moderate to severe respiratory distress. Vital Signs: 12:38 BP 123 / 60; Pulse 122; Resp 24; Temp 98.4(O); Pulse Ox 92% on 4 lpm NC; Weight 70.31 db kg; Height 5 ft. 8 in. (172.72 cm); Pain 0/10; 13:30 BP 121 / 47; Pulse 116; Resp 23 S; Pulse Ox 97% on 3 lpm NC; db 14:30 BP 120 / 63; Pulse 115; Resp 24; Pulse Ox 100% on 3 lpm NC; db 15:30 BP 118 / 58; Pulse 111; Resp 24; Pulse Ox 100% on 4 lpm NC; db 16:30 BP 123 / 49; Pulse 110; Resp 24; Pulse Ox 99% on 3 lpm NC; db 17:30 BP 102 / 86; Pulse 20; Resp 100; Pulse Ox 99% on 3 lpm NC; db 12:38 Body Mass Index 23.57 (70.31 kg, 172.72 cm) db [place] Coma Score: 13:30 Eye Response: spontaneous(4). Verbal Response: oriented(5). Motor Response: obeys db commands(6). Total: 15. MDM: 12:40 Patient medically screened. rt 15:53 Differential diagnosis: asthma, Chronic Obstructive Pulmonary Disease pneumonia, rt pulmonary edema, Pulmonary Embolism. Antibiotic administration: Data reviewed: vital signs, nurses notes, EMS record, old medical records, EKG, radiologic studies. ED course: Presents to the ED with worsening dyspnea. He is found to have another pneumonia. Does meet criteria for healthcare associated pneumonia. Was treated with cefepime and vancomycin. Fluids were given. Reveal leukocytosis, will be admitted for further care.. 12/27 12:54 Order name: BMP; Complete Time: 13:46 rt 12/27 12:54 Order name: Blood Culture Adult (2) rt 12/27 12:54 Order name: CBC with Diff rt 12/27 12:54 Order name: CPK; Complete Time: 13:46 rt 12/27 12:54 Order name: Ckmb; Complete Time: 13:46 rt 12/27 12:54 Order name: D-Dimer; Complete Time: 13:35 rt 12/27 12:54 Order name: Hepatic Function; Complete Time: 13:46 rt 12/27 12:54 Order name: Lipase; Complete Time: 13:46 rt 12/27 12:54 Order name: Magnesium; Complete Time: 13:46 rt 12/27 12:54 Order name: NT PRO-BNP; Complete Time: 13:46 rt 12/27 12:54 Order name: PT-INR; Complete Time: 13:35 rt 12/27 12:54 Order name: Ptt, Activated; Complete Time: 13:35 rt 12/27 12:54 Order name: Troponin HS; Complete Time: 13:46 rt 12/27 12:54 Order name: ABG; Complete Time: 13:46 rt 12/27 12:54 Order name: XRAY CXR (1 view); Complete Time: 14:06 rt 12/27 12:54 Order name: Call RT; Complete Time: 13:06 rt 12/27 14:12 Order name: Lactate w/ 2H reflex if indic.; Complete Time: 16:30 rt 12/27 14:51 Order name: COVID-19/FLU A+B; Complete Time: 16:30 rt 12/27 16:53 Order name: Comprehensive Metabolic Panel EDMS 12/27 16:53 Order name: CBC with Automated Diff EDMS 12/27 16:53 Order name: CBC with Automated Diff EDMS 12/27 16:53 Order name: Chest Pa And Lat (2 Views) EDMS 12/27 16:53 Order name: Chest Pa And Lat (2 Views) EDMS 12/27 18:01 Order name: CBC Smear Scan EDMS 12/27 12:54 Order name: EKG; Complete Time: 12:55 rt 12/27 12:54 Order name: Cardiac monitoring; Complete Time: 13:59 rt 12/27 12:54 Order name: EKG - Nurse/Tech; Complete Time: 13:59 rt 12/27 12:54 Order name: IV Saline Lock; Complete Time: 13:07 rt 12/27 12:54 Order name: Labs collected and sent; Complete Time: 13:07 rt 12/27 12:54 Order name: O2 Per Protocol; Complete Time: 13:59 rt 12/27 12:54 Order name: O2 Sat Monitoring; Complete Time: 13:59 rt 12/27 16:53 Order name: Regular EDMS EC:08 Rate is 111 beats/min. Rhythm is regular, Sinus tachycardia. QRS [place] is Normal. ID rt interval is normal. QRS interval is normal. QT interval is normal. Interpreted by me. Administered Medications: 13:15 Drug: Albuterol 2.5 mg Route: Inhalation; db 13:24 Not Given (Patient Refused; notified physiciann): AtroVENT (ipratropium) Aerosol 0.5 mg db Inhalation once; Every 20 min for a total of 3 treatments x3 15:30 Drug: Cefepime 2 grams Route: IVPB; Rate: 200 ml/hr; Infused Over: 30 mins; Site: left db antecubital; 16:50 Follow up: Response: No adverse reaction; IV Status: Completed infusion; IV Intake: db 100ml 16:50 Drug: NS 0.9% 1000 ml Route: IV; Rate: 1000 ml; Site: left antecubital; db 16:51 Drug: vancoMYCIN 1 grams Route: IVPB; Infused Over: 2 hrs; Site: left antecubital; db Disposition: 15:53 Critical Care:. rt Disposition Summary: 12/27/21 15:53 Hospitalization Ordered Hospitalization Status: Inpatient Admission rt Provider: Jay Caldwell rt [facility] rt Condition: Fair rt Problem: an acute exacerbation rt Symptoms: have improved rt Bed/Room Type: Standard rt Room Assignment: 401(12/27/21 17:11) eb Diagnosis - Unspecified bacterial pneumonia rt - Other specified sepsis rt Forms: - Medication Reconciliation Form rt - SBAR form rt Critical care time excluding procedures: 15:53 Critical care time: Bedside Care: 30 minutes, Consultation: 5 minutes. Total time: 35 rt minutes Signatures: Dispatcher [employer] EDMS Emeka Hernandez PA PA cp Botello, Elizabeth eb Benton, Danielle, RN RN db Freddie Herman MD MD rt Corrections: (The following items were deleted from the chart) 13:42 13:07 Arterial Blood Gas+RC.LAB.BRZ ordered. EDMS EDMS 17:11 15:53 rt eb
--- NOTE | 2021-12-27 15:53 | ER ---
Nurse's Notes [facility] Name: Jose Marcelino Age: 71 yrs Sex: Male : 1950 Arrival Date: 12/27/2021 Time: 12:37 Bed 20 Private MD: Diagnosis: Unspecified bacterial pneumonia;Other specified sepsis Presentation: 12/27 12:38 Chief complaint: EMS states: SOB started last night. patient picked up from home lives db with daughter in law. Received 125mg IVP solumedrol from EMS and Alvuterol/Atrovent Neb treatment. Patient at 90% on 3L O2 at home. Coronavirus screen: Vaccine status: Patient reports receiving the 2nd dose of the covid vaccine. Client denies travel out of the [place] in the last 14 days. At this time, the client does not indicate any symptoms associated with coronavirus-19. Ebola Screen: Patient negative for fever greater than or equal to 101.5 degrees Fahrenheit, and additional compatible Ebola Virus Disease symptoms Patient denies exposure to infectious person. Patient denies travel to an Ebola-affected area in the 21 days before illness onset. No symptoms or risks identified at this time. Initial Sepsis Screen: Does the patient meet any 2 criteria? RR > 20 per min. HR > 90 bpm. Yes Does the patient have a suspected source of infection? No. Patient's initial sepsis screen is negative. Risk Assessment: Do you want to hurt yourself or someone else? Patient reports no desire to harm self or others. Onset of symptoms was December 27, 2021. 12:38 Method Of Arrival: EMS: [facility] db 12:38 Acuity: PHUC 2 db Triage Assessment: 12:50 General: Appears distressed, uncomfortable, Behavior is cooperative, appropriate for db age. Pain: Denies pain. 12:50 Respiratory: Reports shortness of breath cough that is productive, Airway is patent db Respiratory effort is even, labored, Respiratory pattern is regular, symmetrical, Sputum is thick, white Breath sounds are coarse bilaterally. the patient has severe shortness of breath. Historical: - PMHx: 12:50 Chronic obstructive lung disease; diabetes mellitus; Hypertensive disorder; db - Immunization history:: Adult Immunizations unknown, Client reports receiving the 2nd dose of the Covid vaccine. - Social history:: Smoking status: Patient reports the use of cigarette tobacco products, states quit 4 days ago, Patient/guardian denies using tobacco. - Family history:: not pertinent. Screenin:01 Abuse screen: Denies threats or abuse. Denies injuries from another. Nutritional db screening: No deficits noted. Tuberculosis screening: No symptoms or risk factors identified. Fall Risk None identified. No fall in past 12 months (0 pts). No secondary diagnosis (0 pts). IV access (20 points). Ambulatory Aid- None/Bed Rest/Nurse Assist (0 pts). Gait- Normal/Bed Rest/Wheelchair (0 pts) Mental Status- Oriented to own ability (0 pts). Total [place] Fall Scale indicates No Risk (0-24 pts). Assessment: 12:40 Reassessment: see triage assessment for initial assessment. db 14:01 Reassessment: Patient is alert, oriented x 3, equal unlabored respirations, skin db warm/dry/pink. Reassessment: patient appears to be a little more relaxed after breathing treatment. General: Appears in no apparent distress. comfortable, Behavior is cooperative, appropriate for age. Pain: Denies pain. Neuro: No deficits noted. Level of Consciousness is awake, alert, obeys commands, Oriented to person, place, time, situation, Appropriate for age Speech is normal, Facial symmetry appears normal, Pupils are PERRLA. Cardiovascular: Capillary refill < 3 seconds Rhythm is sinus tachycardia. Respiratory: Reports shortness of breath cough that is productive, Airway is patent Respiratory effort is even, unlabored, Respiratory pattern is regular, symmetrical. GI: No deficits noted. No signs and/or symptoms were reported involving the gastrointestinal system. : No deficits noted. No signs and/or symptoms were reported regarding the genitourinary system. 15:30 Reassessment: Patient is alert, oriented x 3, equal unlabored respirations, skin db warm/dry/pink. Patient states feeling better. 16:30 Reassessment: Patient and/or family updated on plan of care and expected duration. Pain db level reassessed. Patient is alert, oriented x 3, equal unlabored respirations, skin warm/dry/pink. 17:56 Reassessment: Patient is alert, oriented x 3, equal unlabored respirations, skin db warm/dry/pink. patient feels better Patient states feeling better. Patient states symptoms have improved. Respiratory: Reports shortness of breath. Vital Signs: 12:38 BP 123 / 60; Pulse 122; Resp 24; Temp 98.4(O); Pulse Ox 92% on 4 lpm NC; Weight 70.31 db kg; Height 5 ft. 8 in. (172.72 cm); Pain 0/10; 13:30 BP 121 / 47; Pulse 116; Resp 23 S; Pulse Ox 97% on 3 lpm NC; db 14:30 BP 120 / 63; Pulse 115; Resp 24; Pulse Ox 100% on 3 lpm NC; db 15:30 BP 118 / 58; Pulse 111; Resp 24; Pulse Ox 100% on 4 lpm NC; db 16:30 BP 123 / 49; Pulse 110; Resp 24; Pulse Ox 99% on 3 lpm NC; db 17:30 BP 102 / 86; Pulse 20; Resp 100; Pulse Ox 99% on 3 lpm NC; db 12:38 Body Mass Index 23.57 (70.31 kg, 172.72 cm) db Vitals: 13:30 Cardiac Rhythm Assessment Sinus tach. db [place] Coma Score: 13:30 Eye Response: spontaneous(4). Verbal Response: oriented(5). Motor Response: obeys db commands(6). Total: 15. ED Course: 12:37 Patient arrived in ED. eb 12:38 Freddie Herman MD is Attending Physician. rt 12:40 Maintain EMS IV. Dressing intact. Site clean \T\ dry. Gauge \T\ site: 20 G right wrist. db Oxygen administered via a nebulizer mask. 12:48 Hannah Mcconnell, RN is Primary Nurse. db 12:50 Triage completed. db 12:51 Arm band placed on left wrist. db 13:08 CBC with Diff Sent. zm 13:08 CPK Sent. zm 13:08 Ckmb Sent. zm 13:08 D-Dimer Sent. zm 13:08 Hepatic Function Sent. zm 13:08 Lipase Sent. zm 13:08 Magnesium Sent. zm 13:08 NT PRO-BNP Sent. zm 13:08 PT-INR Sent. zm 13:08 Ptt, Activated Sent. zm 13:08 Troponin HS Sent. zm 13:13 Inserted saline lock: 20 gauge in left antecubital area, using aseptic technique. Blood iw collected. 13:31 XRAY CXR (1 view) In Process Unspecified. EDMS 14:04 Oxygen administration via nasal cannula \T\ 3L/min Response to oxygen therapy: symptoms db improved. 14:06 Patient has correct armband on for positive identification. Bed in low position. Call db light in reach. Side rails up X 1. 15:52 Jay Caldwell MD is Hospitalizing Provider. rt 17:45 Report given to 4th floor RN. patient going to [facility]. db 17:45 No provider procedures requiring assistance completed. Patient admitted, IV remains in db place. Administered Medications: 13:15 Drug: Albuterol 2.5 mg Route: Inhalation; db 13:24 Not Given (Patient Refused; notified physiciann): AtroVENT (ipratropium) Aerosol 0.5 mg db Inhalation once; Every 20 min for a total of 3 treatments x3 15:30 Drug: Cefepime 2 grams Route: IVPB; Rate: 200 ml/hr; Infused Over: 30 mins; Site: left db antecubital; 16:50 Follow up: Response: No adverse reaction; IV Status: Completed infusion; IV Intake: db 100ml 16:50 Drug: NS 0.9% 1000 ml Route: IV; Rate: 1000 ml; Site: left antecubital; db 16:51 Drug: vancoMYCIN 1 grams Route: IVPB; Infused Over: 2 hrs; Site: left antecubital; db Medication: 14:01 VIS not applicable for this client. db Intake: 16:50 IV: 100ml; Total: 100ml. db Outcome: 15:53 Decision to Hospitalize by Provider. rt 17:45 Admitted to Tele accompanied by nurse, with oxygen, on monitor. db 17:45 Condition: stable 17:45 Instructed on the need for admit. 18:16 Patient left the ED. iw Signatures: Dispatcher [employer] EDMS Buffy Weiss RN RN iw Botello, Elizabeth eb Martinez, Zaina zm Benton, Danielle, RN RN Freddie Burnham MD MD rt Corrections: (The following items were deleted from the chart) 17:56 17:30 BP 102 / 86; Pulse 16bpm; Resp 100bpm; Pulse Ox 99% 3 lpm Nasal Cannula; db db
[2021-12-27 16:19] LABS: SARS-COV-2 RT PCR NEGATIVE (NEGATIVE)
--- NOTE | 2021-12-27 16:46 | P.HP ---
Certification for Inpatient With expected LOS: >2 Midnights Practitioner: I am a practitioner with admitting privileges, knowledge of patient current condition, hospital course, and medical plan of care. Services: Services provided to patient in accordance with Admission requirements found in Title 42 Section 412.3 of the Code of Federal Regulations Patient History Date of Service: 12/27/21 Reason for admission: Pneumonia COPD exacerbation History of Present Illness: Patient is 71 years of age well-known to me he has terminal COPD with frequent exacerbation became sick over the past 2 days suddenly became worse today more shortness of breath he is compliant with his medication he has felt a little tight mated with a diagnosis of pneumonia and COPD exacerbation Allergies [place] Allergy (Uncoded 01/26/17 16:19) Itching/Hives/Rash Home Medications: Sertraline [Zoloft*] 100 mg PO DAILY 05/13/13 Simvastatin [Zocor*] 40 mg PO BEDTIME 05/13/13 Hydrocodone/Acetaminophen [[place] 5-325 Tablet] 1 each PO BIDP PRN 01/26/17 Triamterene/Hydrochlorothiazid [Triamterene-Hctz 37.5-25 mg Cp] 1 each PO DAILY 01/26/17 Albuterol Inhaler [Ventolin Inhaler*] 1 puff IN BID 01/22/21 Fluticasone/Umeclidin/Vilanter [Trelegy Ellipta 100-62.5-25] 1 puff IN DAILY 01/22/21 Metformin HCl 1,000 tab PO BID 01/22/21 Lisinopril [Zestril] 2.5 mg PO DAILY 05/28/21 Pregabalin [Lyrica] 25 mg PO BID 05/28/21 Albuterol Neb [Proventil 0.083% Neb Soln] 2.5 mg NEB [id number] #60 amp 05/29/21 Ipratropium Neb [Atrovent*] 0.5 mg NEB [id number] #60 amp 05/29/21 Nicotine [Nicotine Patch] 1 each TD DAILY 10/22/21 Benzonatate [Tessalon Perle*] 100 mg PO PRN PRN 12/08/21 Benzonatate [Tessalon Perle*] 200 mg PO TID PRN #30 cap 12/09/21 levoFLOXacin [Levaquin] 750 mg PO DAILY #6 tab 11/01/22 predniSONE [Prednisone*] 40 mg PO DAILY #10 tab 12/09/21 - Past Medical/Surgical History Diabetic: Yes -: DM -: Asthma -: Arthritis -: COPD -: HTN -: HLD -: depresison -: Cyst removal from right side of neck Psychosocial/ Personal History: Patient lives at home with his son - Family History Mother -: Heart disease, Diabetes Sister -: Diabetes, Cancer Father -: Cancer - Social History Alcohol use: No CD- Drugs: Yes Caffeine use: Yes Review of Systems 10-point ROS is otherwise unremarkable General: Weakness Respiratory: Shortness of Breath Physical Examination - Vital Signs Temperature: 98.4 F Blood Pressure: 123/60 Pulse: 122 Respirations: 24 Pulse Ox (%): 92 - Physical Exam General: Alert, Moderate distress Respiratory: Clear to auscultation bilaterally, Diminished, Expiratory wheezes Cardiovascular: No edema, Regular rate/rhythm Gastrointestinal: Normal bowel sounds, Soft and benign Musculoskeletal: No clubbing, No swelling Integumentary: No rashes, No breakdown Neurological: Normal speech, Normal strength at 5/5 x4 extr - Studies Laboratory Data (last 24 hrs) 12/27/21 13:05: PT 11.7, INR 1.06, APTT 22.3 L 12/27/21 13:05: WBC 23.10 H*, Hgb 13.9, Hct 41.9, Plt Count 446 H 12/27/21 13:05: Sodium 132 L, Potassium 5.3 H, BUN 61 H, Creatinine 1.35 H, Glucose 140 H, Magnesium 2.1, Total Bilirubin 0.6, AST 13 L, ALT 20, Alkaline Phosphatase 84, Lipase 143 Assessment and Plan - Problems (Diagnosis) (1) Pneumonia Current Visit: No Status: Acute Plan: Patient is 71 years of age with terminal COPD frequent exacerbations admitted with due to right lower lobe pneumonia elevated white count he has severe terminal COPD compliant with his medication will admit to the hospital and treated with bronchodilators at risk for resistant organism we will start him on cefepime sputum cultures Qualifiers: Pneumonia type: due to unspecified organism Laterality: right Lung location: lower lobe of lung Qualified Code(s): J18.9 - Pneumonia, unspecified organism (2) COPD exacerbation Current Visit: No Status: Acute Plan: Patient has terminal COPD compliant with his medication we will treated with steroids and bronchodilators for now rest x-ray reviewed - Advance Directives Does patient have a Living Will: No Does patient have a Durable POA for Healthcare: No
[2021-12-27] MEDS ORDERED: ACETAMINOPHEN 500 MG TAB PO PRN (16:48)
[2021-12-27] MEDS ORDERED: NA CHLORIDE 0.9% 1,000 ML ONE (16:50)
[2021-12-27 18:01] LABS: Blood Morphology Comment NOT SEEN (NOT SEEN); Platelet Estimate INCR; White Blood Cell Scan OK (OK)
[2021-12-27] MEDS: METHYLPREDNISOLONE 40 MG INJ IV SCH (19:36)
[2021-12-27] MEDS: Levofloxacin 750mg IV 750 MG/150 ML BAG IV SCH (19:36)
[2021-12-27] MEDS ORDERED: HYDROCODONE/APAP 5/325 MG TAB PO PRN (19:39)
[2021-12-27] MEDS: ALBUTEROL 2.5 MG/3 ML NEB SOL NEB SCH ×2 (19:40→23:35)
[2021-12-27] MEDS ORDERED: SODIUM CHL 0.9% 1000 ML BAG IV ONE (20:05)
--- NOTE | 2021-12-27 20:09 | P.PN ---
Date of Service: 12/27/21 Patient now meets criteria for septic shock with lactic acid >4, SIRS criteria present with tachycardia, tachypnea, leukocytosis, source of infection present with pneumonia. Blood cultrures were obtained, antibiotics given. Will give 30cc/kg IVF bolus and repeat lactate level. No hypotension noted. Tybe B lactic acidosis also likely contributing given the use of albuterol nebs.
[2021-12-27] MEDS: SERTRALINE HCL 50 MG TAB PO SCH (20:20)
[2021-12-27] MEDS: ENOXAPARIN 40 MG/0.4 ML SQ SCH (20:21)
[2021-12-27] MEDS ORDERED: PREGABALIN 25 MG PO SCH ×2 (21:00)
[2021-12-27] MEDS ORDERED: PREGABALIN 50 MG CAP PO SCH (21:18)
[2021-12-27 22:08] LABS: Albumin 2.8 g/dL (3.4-5.0); Bilirubin Total 0.3 mg/dL (0.2-1.0); Potassium 4.8 mmol/L (3.5-5.1); Protein, Total 5.9 g/dL (6.4-8.2)
[2021-12-27] MEDS ORDERED: FUROSEMIDE 40 MG/4 ML VIAL IV ONE (23:50)
[2021-12-28] MEDS: ALBUTEROL 2.5 MG/3 ML NEB SOL NEB SCH ×4 (02:00→20:00)
[2021-12-28] MEDS: METHYLPREDNISOLONE 40 MG INJ IV SCH ×3 (02:21→16:12)
[2021-12-28 05:40] LABS: Absolute Lymphocytes (CBC) 0.7 K/uL (0.7-4.9); Hematocrit 32.1 % (39.6-49.0); Lymphocytes % 4.1 % (15.3-44.8); MCV 87.2 fL (80-100); MPV 6.8 fL (7.6-11.3); RBC Red Blood Cell Count 3.69 M/uL (4.33-5.43)
[2021-12-28] MEDS: ENOXAPARIN 40 MG/0.4 ML SQ SCH (08:00)
[2021-12-28] MEDS: SERTRALINE HCL 50 MG TAB PO SCH (08:00)
[2021-12-28] MEDS: PREGABALIN 25 MG PO SCH ×2 (08:07→20:15)
[2021-12-28 08:32] LABS: Blood Morphology Comment NOT SEEN (NOT SEEN); Platelet Estimate ADEQ; White Blood Cell Scan OK (OK)
--- NOTE | 2021-12-28 08:43 | RAD REPORT ---
EXAM DESCRIPTION: RAD - Chest Single View - 12/28/2021 6:23 am CLINICAL HISTORY: Pneumonia Chest pain. COMPARISON: <Comparisons> FINDINGS: Portable technique limits examination quality. Mild reticular opacities are seen in the right lung base and left mid lung, appearing slightly improv ed since comparative study. The heart is normal in size. No displaced fractures. IMPRESSION: Slight improvement in lung aeration since comparative examination.
[2021-12-28] MEDS: NICOTINE 21 MG/PAT TD SCH (09:34)
--- NOTE | 2021-12-28 11:56 | P.PN ---
Subjective Date of Service: 12/28/21 Chief Complaint: Pneumonia COPD exacerbation Patient states he feels better but not back to baseline. He states that he feels less short of breath. No fever or chest pain. He has nonproductive cough. Physical Examination - Vital Signs Temperature: 98.2 F Blood Pressure: 171/64 Pulse: 101 Respirations: 24 Pulse Ox (%): 98 - Studies Laboratory Data (last 24 hrs) 12/27/21 13:05: PT 11.7, INR 1.06, APTT 22.3 L 12/27/21 13:05: WBC 23.10 H*, Hgb 13.9, Hct 41.9, Plt Count 446 H 12/27/21 13:05: Sodium 132 L, Potassium 5.3 H, BUN 61 H, Creatinine 1.35 H, Glucose 140 H, Magnesium 2.1, Total Bilirubin 0.6, AST 13 L, ALT 20, Alkaline Phosphatase 84, Lipase 143 Assessment And Plan - Current Problems (Diagnosis) (1) COPD exacerbation Current Visit: No Status: Acute (2) Acute respiratory failure with hypoxia Current Visit: Yes Status: Acute (3) Sepsis Current Visit: Yes Status: Acute (4) Pneumonia Current Visit: No Status: Acute Qualifiers: Pneumonia type: due to unspecified organism Laterality: right Lung location: lower lobe of lung Qualified Code(s): J18.9 - Pneumonia, unspecified organism (5) T2DM (type 2 diabetes mellitus) Current Visit: No Status: Chronic Qualifiers: Diabetes mellitus nursing home insulin use: without nursing home use Diabetes mellitus complication status: with hyperglycemia Qualified Code(s): E11.65 - Type 2 diabetes mellitus with hyperglycemia - Plan Physical Exam General: Alert, NAD. Respiratory: Diminished, Expiratory wheezes Cardiovascular: No edema, Regular rhythm, tachycardic. Gastrointestinal: Normal bowel sounds, Soft and benign Musculoskeletal: No clubbing, No swelling Integumentary: No rashes, No breakdown Neurological: Normal speech, no focal motor deficit. Plan: Continue treatment for COPD exacerbation with steroid, scheduled bronchodilators and antibiotics. Antibiotics for pneumonia. Wean oxygen as tolerated. Monitor and optimize electrolytes. Follow blood cultures. Repeat lactate. Activity as tolerated. Insulin sliding scale for glucose management. Watch for steroid-induced hyperglycemia.
[2021-12-28] MEDS ORDERED: D50W 25 GM/50 ML SYRINGE IV PRN (11:59)
[2021-12-28] MEDS ORDERED: GLUCAGON 1 MG/VIAL IM PRN (11:59)
[2021-12-28] MEDS: Levofloxacin 750mg IV 750 MG/150 ML BAG IV SCH (16:12)
[2021-12-28] MEDS: INSULIN -REGULAR HUMAN 50 UNIT/0.5 ML ML SQ SCH ×2 (16:30→20:16)
[2021-12-29] MEDS: METHYLPREDNISOLONE 40 MG INJ IV SCH ×3 (00:18→16:41)
[2021-12-29] MEDS: ALBUTEROL 2.5 MG/3 ML NEB SOL NEB SCH ×4 (02:15→19:15)
[2021-12-29 04:06] LABS: Absolute Lymphocytes (CBC) 0.7 K/uL (0.7-4.9); Hematocrit 31.8 % (39.6-49.0); Lymphocytes % 4.2 % (15.3-44.8); MCV 88.1 fL (80-100); MPV 7.2 fL (7.6-11.3); RBC Red Blood Cell Count 3.61 M/uL (4.33-5.43)
[2021-12-29 04:33] LABS: Potassium 4.1 mmol/L (3.5-5.1)
[2021-12-29] MEDS: INSULIN -REGULAR HUMAN 50 UNIT/0.5 ML ML SQ SCH ×4 (07:30→20:47)
[2021-12-29] MEDS: NICOTINE 21 MG/PAT TD SCH (08:25)
[2021-12-29] MEDS: ENOXAPARIN 40 MG/0.4 ML SQ SCH (08:25)
[2021-12-29] MEDS: POTASS/SODIUM PHOSPHATE 1 PKT POWD.PACK PO SCH ×3 (08:25→11:21)
[2021-12-29] MEDS: SERTRALINE HCL 50 MG TAB PO SCH (08:26)
[2021-12-29] MEDS: PREGABALIN 25 MG PO SCH (10:30)
[2021-12-29] MEDS: levoFLOXacin 750 MG TAB PO SCH (11:19)
--- NOTE | 2021-12-29 12:17 | P.PN ---
Subjective Date of Service: 12/29/21 Chief Complaint: Pneumonia COPD exacerbation Patient stated he had to wear BiPAP last night for increased shortness of breath. He feels better this morning. Physical Examination - Vital Signs Temperature: 98.2 F Blood Pressure: 138/65 Pulse: 87 Respirations: 20 Pulse Ox (%): 95 Assessment And Plan - Current Problems (Diagnosis) (1) COPD exacerbation Current Visit: No Status: Acute (2) Acute respiratory failure with hypoxia Current Visit: Yes Status: Acute (3) Sepsis Current Visit: Yes Status: Acute (4) Pneumonia Current Visit: No Status: Acute Qualifiers: Pneumonia type: due to unspecified organism Laterality: right Lung location: lower lobe of lung Qualified Code(s): J18.9 - Pneumonia, unspecified organism (5) T2DM (type 2 diabetes mellitus) Current Visit: No Status: Chronic Qualifiers: Diabetes mellitus machine long goods helper insulin use: without machine long goods helper use Diabetes mellitus complication status: with hyperglycemia Qualified Code(s): E11.65 - Type 2 diabetes mellitus with hyperglycemia - Plan Physical Exam General: Alert, NAD. Respiratory: Diminished, Expiratory wheezes Cardiovascular: No edema, Regular rhythm, tachycardic. Gastrointestinal: Normal bowel sounds, Soft and benign Musculoskeletal: No clubbing, No swelling Integumentary: No rashes, No breakdown Neurological: Normal speech, no focal motor deficit. Plan: Continue treatment for COPD exacerbation with IV steroid, scheduled bronchodilators and antibiotics. Antibiotics for pneumonia. Wean oxygen as tolerated. Blood cultures: No growth. Leukocytosis is improving. Activity as tolerated. Insulin sliding scale for glucose management. Watch for steroid-induced hyperglycemia.
--- NOTE | 2021-12-29 15:35 | EKG ---
Test Date: 2021-12-27 Test Time: 13:56:56 Enamel Buffer: SERGIO MEASUREMENT RESULTS: Intervals: Rate: 111 WI: 158 QRSD: 120 QT: 318 QTc: 432 Peever: P: 67 WI: 158 QRS: 84 T: 65 INTERPRETIVE STATEMENTS: Sinus tachycardia Right bundle branch block Abnormal ECG Compared to ECG 12/08/2021 03:23:23 Sinus rhythm no longer present Fusion complex(es) no longer present Electronically Signed On 12-29-21 15:30:31 SOLUTION ARCHITECT by Serafin James
--- NOTE | 2021-12-29 19:26 | P.PN ---
Date of Service: 12/30/21 Subjective: still with DONNELLY, but improving; weak no new /worsening symptoms ROS: 10 point ROS as noted above, otherwise negative Physical Exam: Gen: NAD, AOx3 HEENT: normal conjunctiva, sclera anicteric CV: regular rate & rhythm, no edema Pulm: b/l wheeze, nonlabored on 3L NC Abd: soft, non-tender, non-distended Neuro: normal speech, normal affect, moves all extremities vitals reviewed Problem List Acute on chronic hypoxemic respiratory failure secondary to acute on chronci COPD exacerbation terminal COPD sepsis secondary to pneumonia NIDDM2 Continue treatment for COPD exacerbation with steroids, bronchodilators, empiric antibiotic pulm consulted, continue abx wean O2 as tolerated; on home O2 has chronic, terminal COPD blood cultures without growth leukocytosis improved; partially due to steroids Activity as tolerated. Insulin sliding scale for glucose management. Watch for steroid-induced hyperglycemia. VTE: lovenox Code: full Dispo: home, anticipate tomorrow Time Spent Managing Pts Care (In Minutes): 25
[2021-12-29 19:52] VITALS: BMI 22.8
[2021-12-29] MEDS: BENZONATATE 100 MG CAP PO PRN (20:46)
[2021-12-30] MEDS: METHYLPREDNISOLONE 40 MG INJ IV SCH ×2 (01:00→08:23)
[2021-12-30] MEDS: PREGABALIN 25 MG PO SCH ×3 (01:15→21:00)
[2021-12-30] MEDS: ALBUTEROL 2.5 MG/3 ML NEB SOL NEB SCH ×5 (01:30→20:00)
[2021-12-30 04:07] LABS: Absolute Lymphocytes (CBC) 0.9 K/uL (0.7-4.9); Hematocrit 31.4 % (39.6-49.0); Lymphocytes % 5.3 % (15.3-44.8); MCV 87.8 fL (80-100); MPV 7.3 fL (7.6-11.3); RBC Red Blood Cell Count 3.58 M/uL (4.33-5.43)
[2021-12-30 04:25] LABS: Potassium 4.6 mmol/L (3.5-5.1)
[2021-12-30 06:50] LABS: Magnesium 2.2 mg/dL (1.8-2.4); Phosphorus 2.5 mg/dL (2.5-4.9)
[2021-12-30] MEDS: INSULIN -REGULAR HUMAN 50 UNIT/0.5 ML ML SQ SCH ×4 (07:30→21:00)
[2021-12-30] MEDS: ENOXAPARIN 40 MG/0.4 ML SQ SCH (08:23)
[2021-12-30] MEDS: BENZONATATE 100 MG CAP PO PRN (08:23)
[2021-12-30] MEDS: SERTRALINE HCL 50 MG TAB PO SCH (08:23)
[2021-12-30] MEDS: NICOTINE 21 MG/PAT TD SCH (08:23)
[2021-12-30] MEDS: levoFLOXacin 750 MG TAB PO SCH (08:23)
--- NOTE | 2021-12-30 12:38 | P.PN ---
Subjective Date of Service: 12/30/21 Chief Complaint: Pneumonia COPD exacerbation Subjective: Improving (Patient is improving doing well still feeling very weak) Review of Systems General: Weakness Respiratory: Cough, Shortness of Breath Physical Examination - Vital Signs Temperature: 97.6 F Blood Pressure: 134/54 Pulse: 93 Respirations: 19 Pulse Ox (%): 96 - Physical Exam General: Alert, Oriented x3 Respiratory: Expiratory wheezes Cardiovascular: No edema, Regular rate/rhythm Assessment And Plan - Current Problems (Diagnosis) (1) Pneumonia Current Visit: No Status: Acute Plan: Patient admitted with pneumonia and COPD exacerbation is currently stable cultures are negative White count is mildly mildly elevated but declining patient can be discharged home on levofloxacin 750 mg daily with prednisone 10 twice a day for a week then he can decrease it to once a day vital signs are stable oxygenation satisfactory labs medication reviewed he will not qualify for noninvasive ventilator chest x-ray shows COPD changes with an improvement Qualifiers: Pneumonia type: due to unspecified organism Laterality: right Lung location: lower lobe of lung Qualified Code(s): J18.9 - Pneumonia, unspecified organism (2) COPD exacerbation Current Visit: No Status: Acute Plan: Patient has terminal COPD compliant with his medication we will treated with steroids and bronchodilators for now rest x-ray reviewed
[2021-12-30] MEDS: predniSONE 20 MG TAB PO SCH (17:55)
[2021-12-31 00:24] VITALS: O2SAT 94
[2021-12-31] MEDS: ALBUTEROL 2.5 MG/3 ML NEB SOL NEB SCH ×3 (01:40→08:00)
[2021-12-31 04:30] LABS: Hematocrit 30.6 % (39.6-49.0); MCV 88.7 fL (80-100); MPV 7.1 fL (7.6-11.3); RBC Red Blood Cell Count 3.45 M/uL (4.33-5.43)
[2021-12-31 05:42] LABS: Magnesium 2.1 mg/dL (1.8-2.4)
[2021-12-31] MEDS: INSULIN -REGULAR HUMAN 50 UNIT/0.5 ML ML SQ SCH (07:30)
[2021-12-31 08:14] VITALS: BP 149/59; TEMP 97.5
[2021-12-31] MEDS: NICOTINE 21 MG/PAT TD SCH (08:33)
[2021-12-31] MEDS: predniSONE 20 MG TAB PO SCH (08:33)
[2021-12-31] MEDS: SERTRALINE HCL 50 MG TAB PO SCH (08:33)
[2021-12-31] MEDS: PREGABALIN 25 MG PO SCH (08:34)
[2021-12-31] MEDS: ENOXAPARIN 40 MG/0.4 ML SQ SCH (08:35)
[2021-12-31] MEDS ORDERED: HOME MED 1 EA UNK (Fluticasone/Umeclidin/Vilanter [Trelegy Ellipta 100-62.5-25] Blst.W.Dev IN SCH (09:00)
--- NOTE | 2021-12-31 17:29 | P.DS ---
Admission Date: 12/27/21 Discharge Date: 12/31/21 Disposition: ROUTINE DISCHARGE Discharge Condition: GOOD Reason for Admission: Pneumonia COPD exacerbation Brief History of Present Illness: 71 years of age well-known to me he has terminal COPD with frequent exacerbation became sick over the past 2 days suddenly became worse today more shortness of breath he is compliant with his medication he has felt a little tight mated with a diagnosis of pneumonia and COPD exacerbation Hospital Course: Problem List Acute on chronic hypoxemic respiratory failure secondary to acute on chronic COPD exacerbation terminal COPD on chronic home O2 sepsis secondary to pneumonia NIDDM2 Patient presented with shortness of breath, found to have acute copd exacerbation with possible pneumonia. Pulmonology was consulted. Patient had improvement with nebs, steroids, and empiric antibiotic coverage. He was deemed stable for discharge home with close follow up with Pulmonology. Meds on discharge: Prednisone 10mg twice daily x 7 days, then 10mg daily x 7 days. Then resume prior chronic prednisone dosage per pulmonology levaquin 750mg daily for 7 days Vital Signs/Physical Exam: Temp Pulse Resp BP Pulse Ox 97.5 F 84 19 149/59 H 97 12/31/21 08:00 12/31/21 08:00 12/31/21 08:00 12/31/21 08:00 12/31/21 08:00 Physical Exam: Gen: NAD, AOx3 HEENT: normal conjunctiva, sclera anicteric CV: regular rate & rhythm, no edema Pulm: mild b/l wheeze, nonlabored on 3L NC Abd: soft, non-tender, non-distended Neuro: normal speech, normal affect, moves all extremities Laboratory Data at Discharge: WBC 15.20 K/uL (4.3-10.9) H 12/31/21 03:46 Hgb 10.1 g/dL (13.6-17.9) L 12/31/21 03:46 Hct 30.6 % (39.6-49.0) L 12/31/21 03:46 Plt Count 367 K/uL (152-406) 12/31/21 03:46 PT 11.7 SECONDS (9.5-12.5) 12/27/21 13:05 INR 1.06 12/27/21 13:05 APTT 22.3 SECONDS (24.3-36.9) L 12/27/21 13:05 Sodium 137 mmol/L (136-145) 12/31/21 03:46 Potassium 4.0 mmol/L (3.5-5.1) D 12/31/21 03:46 BUN 34 mg/dL (7-18) H 12/31/21 03:46 Creatinine 1.07 mg/dL (0.55-1.3) 12/31/21 03:46 Glucose 208 mg/dL (74-106) H 12/31/21 03:46 Phosphorus 2.5 mg/dL (2.5-4.9) 12/30/21 03:13 Magnesium 2.1 mg/dL (1.8-2.4) 12/31/21 03:46 Total Bilirubin 0.3 mg/dL (0.2-1.0) 12/27/21 21:36 AST 8 U/L (15-37) L 12/27/21 21:36 ALT 15 U/L (12-78) 12/27/21 21:36 Alkaline Phosphatase 59 U/L (45-117) D 12/27/21 21:36 Lipase 143 U/L (73-393) 12/27/21 13:05 Home Medications: Sertraline [Zoloft*] 100 mg PO DAILY 05/13/13 Simvastatin [Zocor*] 40 mg PO BEDTIME 05/13/13 Hydrocodone/Acetaminophen [Chandler 5-325 Tablet] 1 each PO BIDP PRN 01/26/17 Triamterene/Hydrochlorothiazid [Triamterene-Hctz 37.5-25 mg Cp] 1 each PO DAILY 01/26/17 Albuterol Inhaler [Ventolin Inhaler*] 1 puff IN BID 01/22/21 Fluticasone/Umeclidin/Vilanter [Trelegy Ellipta 100-62.5-25] 1 puff IN DAILY 01/22/21 Metformin HCl 1,000 tab PO BID 01/22/21 Lisinopril [Zestril] 2.5 mg PO DAILY 05/28/21 Pregabalin [Lyrica] 25 mg PO BID 05/28/21 Albuterol Neb [Proventil 0.083% Neb Soln] 2.5 mg NEB [id number] #60 amp 05/29/21 Ipratropium Neb [Atrovent*] 0.5 mg NEB [id number] #60 amp 05/29/21 Nicotine [Nicotine Patch] 1 each TD DAILY 10/22/21 Benzonatate [Tessalon Perle*] 200 mg PO TID PRN #30 cap 12/09/21 predniSONE [Prednisone*] 20 mg PO DAILY 12/27/21 levoFLOXacin [Levaquin*] 750 mg PO Q24H 7 Days #7 tab 12/31/21 predniSONE [Deltasone*] 10 mg PO BID 14 Days #21 tab 12/31/21 New Medications: predniSONE [Deltasone*] 10 mg PO BID 14 Days #21 tab levoFLOXacin [Levaquin*] 750 mg PO Q24H 7 Days #7 tab Physician Discharge Instructions: Patient presented with shortness of breath, found to have acute copd exacerbation with possible pneumonia. Pulmonology was consulted. Patient had improvement with nebs, steroids, and empiric antibiotic coverage. He was deemed stable for discharge home with close follow up with Pulmonology. Meds on discharge: Prednisone 10mg twice daily x 7 days, then 10mg daily x 7 days. Then resume prior chronic prednisone dosage per pulmonology levaquin 750mg daily for 7 days Followup: Jay Caldwell MD [ACTIVE - CAN ADMIT] - 1 Week (call for an appointment) Uri Maldonado DO [ACTIVE - CAN ADMIT] - 1-2 Weeks (call for an apointment) Time spent managing pt's care (in minutes): 45
== END 2021-12-31 11:53 | disposition home or self-care (01) | DRG 871 ==
LOC: ER 12:34 → ERHOLD 16:48 → 4TH 17:54
PROVIDERS: ADMIT Internal Medicine Sleep Medicine; ATTEND Hospitalist
PROC: 5A09457 Assistance with Respiratory Ventilation, 24-96 Consecutive Hours, Continuous Positive Airway Pressure (ICD-10-PCS; principal; 2021-12-28)
DX: A41.9 Sepsis, unspecified organism (principal); J18.9 Pneumonia, unspecified organism; R65.21 Severe sepsis with septic shock; J96.21 Acute and chronic respiratory failure with hypoxia; J44.1 Chronic obstructive pulmonary disease with (acute) exacerbation; J44.0 Chronic obstructive pulmonary disease with (acute) lower respiratory infection; E87.20 Acidosis, unspecified; E11.65 Type 2 diabetes mellitus with hyperglycemia; I10 Essential (primary) hypertension; E78.5 Hyperlipidemia, unspecified; F17.210 Nicotine dependence, cigarettes, uncomplicated; Z99.81 Dependence on supplemental oxygen; Z79.84 Long term (current) use of oral hypoglycemic drugs; Z79.52 Long term (current) use of systemic steroids; Z79.899 Other long term (current) drug therapy; Z20.822 Contact with and (suspected) exposure to COVID-19
CPT/HCPCS: 0240U; 36415; 71045; 80048; 80053; 80076; 82550; 82553; 82805; 82947; 83605; 83690; 83735; 83880; 84100; 84484; 85025; 85027; 85379; 85610; 85730; 87040; 87070; 87205; 93005; 94660; 94760; 96365; 96375; 99285; J0692; J1650; J1815; J1940; J2920; J3370; J7030; J7050; J7512; J7613; J7644

== ENCOUNTER 2022-06-04 16:51 | Emergency (ER) | payer OTHER ==
--- OUTSIDE RECORDS SUMMARY | 2022-06-04 16:56 | XMS REPORT | Continuity of Care Document ---
:1950 Author Organization [facility] t Address [address] [place] [address] [address] [place] [address] Care Team Providers Name Role Phone Uri Maldonado Attending Clinician Unavailable Payers Payer Name Policy Type Policy Effective Date Expiration Date Sour ce Number [facility] 53 [id number] Commo n Spirit [facility] Problems Condition Condition Condition Status Onset Resolution Last Treating Co mments Source Name Details Category Date Date Treatment Clinician Date [id number] COPD with Problem Com mon exacerbati Spirit on [facility] Urine Urinary Problem Common incontinen incontinen Sp eliza ce ce, - [facility] unspecif[facility] Chronic Chronic Problem Common back pain back pain Spir it - [facility] 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, - [facility] interverte cervical [facility] [id number] Chronic Problem Common neutrophil Spirit ia [facility] Hyperglyce Hyperglyce Problem C ommon heriberto heriberto Spirit [facility] Benign Benign Problem Common essential essential Spir it hypertensi hypertensi - [facility] on on [facility] Chronic Chronic Problem Common obstructiv obstructiv Sp eliza e e - [facility] pulmonary pulmonary St disease [facility] (COPD) [facility] Migraine Migraine, Problem Comm on unspecifie Spirit d, not - [facility] intractabl [facility] without [facility] 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 - [facility] Osteoarthr OA Problem Commo n itis (osteoarth Spirit ritis) - [facility] Tobacco Tobacco Problem Common use use Spirit disorder - [facility] Depression Depression Problem C [facility] History of H/O: CVA Problem Com mon cerebrovas (cerebrova Sp eliza cular scular - [facility] accident accident) [facility] [employer] [facility] [id number] Controlled Problem Co mmon type 2 Spirit diabetes - [facility] mellitus [facility] complicati Medica l on, Center unspecifie d whether mcc insulin use [id number] Thrombocyt Problem Comm on osis Spirit - [facility] [id number] Elevated Problem Com mon [id number] C-reactive [facility] protein - [facility] (CRP) [facility] Benign BPH Problem Common prostatic (benign Spirit hyperplasi prostatic - C HI a hyperplasi [facility] Prediabete Prediabete Problem C [facility] s s Spirit [facility] Sciatica Sciatica Problem Commo n Spirit [facility] Mixed Hyperlipid Problem Commo n hyperlipid emia, Spirit emia mixed [facility] [id number] Hypercalce Problem Com mon [facility] [id number] Noncomplia Problem Co mmon nce with Spirit dietary - [facility] restrictio [facility] [id number] Type 2 Problem Common diabetes [facility] mellitus - [facility] with [facility] Medical [facility] long-term current use of insulin Allergies, Adverse Reactions, Alerts This patient has no known allergies or adverse reactions. Social History Social Habit Start Date Stop Date Quantity Comments Source History of Tobacco Current Smoker Co mmon Spirit - [facility] Use [facility] Sex Assigned At Com mon Spirit - [facility] Smoking Status Start Date Stop Date Source Current Smoker 2022-03-05 00:00:00 Common Spiri t - [facility] Medications Ordered Filled Start Stop Current Ordering [...] No Kaylee 1 tablet Common 17 -20 [place] Spirit 00:00: 00:00 - [facility] 00 :00 [facility] Tamsulosin Tamsulosin 2019-0 2020- No Kaylee 1 capsule Common HCl HCl 18 -13 [place] Spirit 00:00: 00:00 - [facility]I 00 :00 [facility] Flonase Flonase Yes Kaylee 1 spray in Co mmon Chen each Spirit nostril - [facility] Metformin Metformin Yes Kyalee TAKE 1 Co mmon HCl HCl Chen TABLET BY Spirit MOUTH - [facility]I TWICE A St DAY WITH [facility] Triamterene Triamterene Yes Kaylee 1 tablet Common -HCTZ -HCTZ Chen in the Spirit morning - [facility] Zoloft Zoloft Yes Kaylee 2 tablets Commo n [place] Spirit - [facility] Trelegy Trelegy Yes Kaylee INHALE 1 Comm on Ellipta Ellipta [place] PUFF BY Sp eliza MOUTH - CHI EVERY DAY [facility] PredniSONE PredniSONE Yes Kaylee 1 tablet Common Chen Spirit [facility] Sertraline Sertraline Yes Kaylee TAKE 2 Common HCl HCl [place] TABLETS Spirit ONCE DAILY - [facility] Simvastatin Simvastatin Yes Kaylee TAKE 1 Common [place] TABLET BY Spirit MOUTH - CHI EVERY DAY St IN THE [facility] EVENING [facility] Januvia Januvia Yes Kaylee TAKE 1 Common [place] TABLET Spirit ONCE DAILY - [facility] Albuterol Albuterol Yes Kaylee 2 puffs as Common Sulfate HFA Sulfate HFA [place] needed [facility] Pregabalin Pregabalin Yes Kaylee 1 capsule Common [place] 1 to 3 Spirit hours - CHI before St bedtime in [employer] [place] Yes Kaylee 1 tablet Common [place] as needed [facility] Lisinopril Lisinopril Yes Kaylee 1 tablet Common Chen [facility] Simvastatin Simvastatin Yes Kaylee 1 tablet Common Chen in the [facility] evening - [facility] Baclofen Baclofen Yes Kaylee not Common [place] defined [facility] metFORMIN metFORMIN No metFORMIN HCl 1000 MG HCl 1000 MG HCl 1000 MG [place] No 1{table QID [place] 10-325 MG 10-325 MG t_as_ne 10-325 MG [...] MCG/ACT MCG/ACT MCG/ACT Baclofen Baclofen No Baclofen [place] No 1{table QID [place] 10-325 MG 10-325 MG t_as_ne 10-325 MG [...] MCG/ACT MCG/ACT MCG/ACT Baclofen Baclofen No Baclofen [place] No 1{table QID [place] 10-325 MG 10-325 MG t_as_ne 10-325 MG eded} Simvastatin Simvastatin No Simvastati 80 MG 80 MG n 80 MG predniSONE predniSONE No 1{table predniSONE 2.5 MG 2.5 MG t} 2.5 MG Simvastatin Simvastatin No 1{table QD Simvastati 80 MG 80 MG t_in_th n 80 MG e_eveni ng} [place] No 1{table QID [place] 10-325 MG 10-325 MG t_as_ne 10-325 MG [...] Pregabalin 150 MG 150 MG 150 MG [place] No 1{table QID [place] 10-325 MG 10-325 MG t_as_ne 10-325 MG [...] HCl 0.4 MG le} HCl 0.4 MG [place] No 1{table QID [place] 10-325 MG 10-325 MG t_as_ne 10-325 MG [...] Nebulizer Nebulizer No Nebulizer Compressor Compressor Compressor [place] No 1{table QID [place] 10-325 MG 10-325 MG t_as_ne 10-325 MG [...] Nebulizer Nebulizer No Nebulizer Compressor Compressor Compressor [place] No 1{table QID [place] 10-325 MG 10-325 MG t_as_ne 10-325 MG [...] 100-62.5-25 100-62.5-25 100-62.5-2 MCG/INH MCG/INH 5 MCG/INH [place] No 1{table QID [place] 10-325 MG 10-325 MG t_as_ne 10-325 MG [...] 75 MG 75 MG le} 75 MG [place] No 1{table QID [place] 10-325 MG 10-325 MG t_as_ne 10-325 MG [...] 75 MG 75 MG le} 75 MG [place] No 1{table QID [place] 10-325 MG 10-325 MG t_as_ne 10-325 MG [...] 75 MG 75 MG le} 75 MG [place] No 1{table QID [place] 10-325 MG 10-325 MG t_as_ne 10-325 MG [...] 75 MG 75 MG le} 75 MG [place] No 1{table QID [place] 10-325 MG 10-325 MG t_as_ne 10-325 MG eded} metFORMIN metFORMIN No metFORMIN HCl 1000 MG HCl 1000 MG HCl 1000 MG metFORMIN metFORMIN No metFORMIN HCl 1000 MG HCl 1000 MG HCl 1000 MG [place] No 1{table QID [place] 10-325 MG 10-325 MG t_as_ne 10-325 MG [...] n 500 MG t} in 500 MG [place] No 1{table QID [place] 10-325 MG 10-325 MG t_as_ne 10-325 MG [...] Trintellix 10 MG 10 MG 10 MG Baclofen Baclofen No Baclofen metFORMIN metFORMIN No metFORMIN HCl 1000 MG HCl 1000 MG HCl 1000 MG [place] No 1{table QID [place] 10-325 MG 10-325 MG t_as_ne 10-325 MG [...] 20 MG 20 MG t} 20 MG Pregabalin Pregabalin No 1{capsu BID Pregabalin 75 MG 75 MG le} 75 MG Levofloxaci Levofloxaci No 1{table QD Levofloxac n 500 MG n 500 MG t} in 500 MG Theophyllin Theophyllin No 3{capsu QD Theophylli e ER 100 MG e ER 100 MG les} ne ER 100 MG Triamterene Triamterene No 1{table QD Triamteren -HCTZ -HCTZ t_in_th e-HCTZ 37.5-25 MG 37.5-25 MG e_morni 37.5-25 MG ng} Lisinopril Lisinopril No Lisinopril 5 MG 5 MG 5 MG Zoloft 100 Zoloft 100 No 1{table QD Zoloft 100 MG MG t} MG Albuterol Albuterol No 2{puffs QID Albuterol Sulfate HFA Sulfate HFA _as_nee Sulfate 108 (90 108 (90 ded} HFA 108 Base) Base) (90 Base) MCG/ACT MCG/ACT MCG/ACT Diclofenac Diclofenac No Diclofenac Sodium 1 % Sodium 1 % Sodium 1 % Trintellix Trintellix No QD Trintellix 10 MG 10 MG 10 MG Lisinopril Lisinopril No Lisinopril 5 MG 5 MG 5 MG Pregabalin Pregabalin No 1{capsu BID Pregabalin 75 MG 75 MG le} 75 MG Theophyllin Theophyllin No 3{capsu QD Theophylli e ER 100 MG e ER 100 MG les} ne ER 100 MG Trelegy Trelegy No Trelegy Ellipta Ellipta Ellipta 100-62.5-25 100-62.5-25 100-62.5-2 MCG/INH MCG/INH 5 MCG/INH Simvastatin Simvastatin No 1{table QD Simvastati 80 MG 80 MG t_in_th n 80 MG e_eveni ng} predniSONE predniSONE No 1{table QD predniSONE 20 MG 20 MG t} 20 MG Triamterene Triamterene No 1{table QD Triamteren -HCTZ -HCTZ t_in_th e-HCTZ 37.5-25 MG 37.5-25 MG e_morni 37.5-25 MG ng} Zoloft 100 Zoloft 100 No 1{table QD Zoloft 100 MG MG t} MG Diclofenac Diclofenac No Diclofenac Sodium 1 % Sodium 1 % Sodium 1 % metFORMIN metFORMIN No metFORMIN HCl 1000 MG HCl 1000 MG HCl 1000 MG Levofloxaci Levofloxaci No 1{table QD Levofloxac n 500 MG n 500 MG t} in 500 MG Trintellix Trintellix No QD Trintellix 10 MG 10 MG 10 MG Albuterol Albuterol No 2{puffs QID Albuterol Sulfate HFA Sulfate HFA _as_nee Sulfate 108 (90 108 (90 ded} HFA 108 Base) Base) (90 Base) MCG/ACT MCG/ACT MCG/ACT [place] No 1{table QID [place] 10-325 MG 10-325 MG t_as_ne 10-325 MG eded} Baclofen Baclofen No Baclofen Theophyllin Theophyllin No 3{capsu QD Theophylli e ER 100 MG e ER 100 MG les} ne ER 100 MG Theophyllin Theophyllin No Theophylli e ER e ER ne ER Lisinopril Lisinopril No Lisinopril 5 MG 5 MG 5 MG Diclofenac Diclofenac No Diclofenac Sodium 1 % Sodium 1 % Sodium 1 % Levofloxaci Levofloxaci No 1{table QD Levofloxac n 500 MG n 500 MG t} in 500 MG Trelegy Trelegy No Trelegy Ellipta Ellipta Ellipta 100-62.5-25 100-62.5-25 100-62.5-2 MCG/INH MCG/INH 5 MCG/INH metFORMIN metFORMIN No metFORMIN HCl 1000 MG HCl 1000 MG HCl 1000 MG metFORMIN metFORMIN No metFORMIN HCl 1000 MG HCl 1000 MG HCl 1000 MG Lisinopril Lisinopril No 1{table QD Lisinopril 5 MG 5 MG t} 5 MG Trintellix Trintellix No 1{table QD Trintellix 10 MG 10 MG t} 10 MG predniSONE predniSONE No 1{table QD predniSONE 20 MG 20 MG t} 20 MG [place] No 1{table QID [place] 10-325 MG 10-325 MG t_as_ne 10-325 MG eded} Albuterol Albuterol No 2{puffs QID Albuterol Sulfate HFA Sulfate HFA _as_nee Sulfate 108 (90 108 (90 ded} HFA 108 Base) Base) (90 Base) MCG/ACT MCG/ACT MCG/ACT Zoloft 100 Zoloft 100 No 1{table QD Zoloft 100 MG MG t} MG Simvastatin Simvastatin No 1{table QD Simvastati 80 MG 80 MG t_in_th n 80 MG e_eveni ng} Pregabalin Pregabalin No 1{capsu BID Pregabalin 75 MG 75 MG le} 75 MG Baclofen Baclofen No Baclofen Triamterene Triamterene No 1{table QD Triamteren -HCTZ -HCTZ t_in_th e-HCTZ 37.5-25 MG 37.5-25 MG e_morni 37.5-25 MG ng} Simvastatin Simvastatin No 1{table QD Simvastati 80 MG 80 MG t_in_th n 80 MG e_eveni ng} Trintellix Trintellix No QD Trintellix 10 MG 10 MG 10 MG Albuterol Albuterol No 2{puffs QID Albuterol [...] 75 MG 75 MG le} 75 MG [place] No 1{table QID [place] 10-325 MG 10-325 MG t_as_ne 10-325 MG eded} metFORMIN metFORMIN No metFORMIN HCl 1000 MG HCl 1000 MG HCl 1000 MG Immunizations Ordered Immunization Filled Immunization Date Status Commen ts Source Name Name FLUZONE HIGH DOSE FLUZONE HIGH DOSE 2021-12-03 Completed [facility] OVER 65 OVER 65 10:08:00 - [facility] FLUZONE HIGH DOSE FLUZONE HIGH DOSE 2021-12-03 Completed Common [facility] OVER 65 OVER 65 10:08:00 - [facility] FLUZONE HIGH DOSE FLUZONE HIGH DOSE 2021-12-03 Completed [facility] OVER 65 OVER 65 10:08:00 - [facility] FLUZONE HIGH DOSE FLUZONE HIGH DOSE 2021-12-03 Completed [facility] OVER 65 OVER 65 10:08:00 - [facility] FLUZONE HIGH DOSE FLUZONE HIGH DOSE 2020-11-14 Completed [facility] OVER 65 OVER 65 10:39:00 - [facility] FLUZONE HIGH DOSE FLUZONE HIGH DOSE 2020-11-14 Completed [facility] OVER 65 OVER 65 10:39:00 - [facility] FLUZONE HIGH DOSE FLUZONE HIGH DOSE 2020-11-14 Completed [facility] OVER 65 OVER 65 10:39:00 - [facility] FLUZONE HIGH DOSE FLUZONE HIGH DOSE 2020-11-14 Completed [facility] OVER 65 OVER 65 10:39:00 - [facility] FLUZONE HIGH DOSE FLUZONE HIGH DOSE 2020-11-14 Completed [facility] OVER 65 OVER 65 10:39:00 - [facility] FLUZONE HIGH DOSE FLUZONE HIGH DOSE 2020-11-14 Completed [facility] OVER 65 OVER 65 10:39:00 - [facility] FLUZONE HIGH DOSE FLUZONE HIGH DOSE 2020-11-14 Completed [facility] OVER 65 OVER 65 10:39:00 - [facility] FLUZONE HIGH DOSE FLUZONE HIGH DOSE 2020-11-14 Completed [facility] OVER 65 OVER 65 10:39:00 - [facility] FLUZONE HIGH DOSE FLUZONE HIGH DOSE 2020-11-14 Completed [facility] OVER 65 OVER 65 10:39:00 - [facility] FLUZONE HIGH DOSE FLUZONE HIGH DOSE 2020-11-14 Completed [facility] OVER 65 OVER 65 10:39:00 - [facility] FLUZONE HIGH DOSE FLUZONE HIGH DOSE 2020-11-14 Completed [facility] OVER 65 OVER 65 10:39:00 - [facility] FLUZONE HIGH DOSE FLUZONE HIGH DOSE 2020-11-14 Completed [facility] OVER 65 OVER 65 10:39:00 - [facility] FLUZONE HIGH DOSE FLUZONE HIGH DOSE 2020-11-14 Completed [facility] OVER 65 OVER 65 10:39:00 - [facility] FLUZONE HIGH DOSE FLUZONE HIGH DOSE 2020-11-14 Completed [facility] OVER 65 OVER 65 10:39:00 - [facility] FLUZONE HIGH DOSE FLUZONE HIGH DOSE 2020-11-14 Completed [facility] OVER 65 OVER 65 10:39:00 [facility] FLUZONE HIGH DOSE FLUZONE HIGH DOSE 2020-11-14 Completed [facility] OVER 65 OVER 65 10:39:00 - [facility] FLUZONE HIGH DOSE FLUZONE HIGH DOSE 2020-11-14 Completed [facility] OVER 65 OVER 65 10:39:00 [facility] FLUZONE HIGH DOSE FLUZONE HIGH DOSE 2020-11-14 Completed [facility] OVER 65 OVER 65 10:39:00 [facility] FLUZONE HIGH DOSE FLUZONE HIGH DOSE 2020-11-14 Completed [facility] OVER 65 OVER 65 10:39:00 [facility] Moderna COVID-19 Moderna COVID-19 2020-05-09 Completed Co mmon [facility] Vaccine Vaccine 13:48:00 - [facility] Moderna COVID-19 Moderna COVID-19 2020-05-09 Completed Co m[facility] Vaccine Vaccine 13:48:00 - [facility] Moderna COVID-19 Moderna COVID-19 2020-05-09 Completed Co m[facility] Vaccine Vaccine 13:48:00 - [facility] Moderna COVID-19 Moderna COVID-19 2020-05-09 Completed Co mmon [facility] Vaccine Vaccine 13:48:00 - [facility] Moderna COVID-19 Moderna COVID-19 2020-05-09 Completed Co mmon [facility] Vaccine Vaccine 13:48:00 - [facility] Moderna COVID-19 Moderna COVID-19 2020-05-09 Completed Co m[facility] Vaccine Vaccine 13:48:00 - [facility] Moderna COVID-19 Moderna COVID-19 2020-05-09 Completed Co mmon [facility] Vaccine Vaccine 13:48:00 - [facility] Moderna COVID-19 Moderna COVID-19 2020-05-09 Completed Co m[facility] Vaccine Vaccine 13:48:00 - [facility] Moderna COVID-19 Moderna COVID-19 2020-05-09 Completed Co m[facility] Vaccine Vaccine 13:48:00 - [facility] Moderna COVID-19 Moderna COVID-19 2020-05-09 Completed Co m[facility] Vaccine Vaccine 13:48:00 - [facility] Moderna COVID-19 Moderna COVID-19 2020-05-09 Completed Co m[facility] Vaccine Vaccine 13:48:00 - [facility] Moderna COVID-19 Moderna COVID-19 2020-05-09 Completed Co m[facility] Vaccine Vaccine 13:48:00 - [facility] Moderna COVID-19 Moderna COVID-19 2020-05-09 Completed Co m[facility] Vaccine Vaccine 13:48:00 - [facility] Moderna COVID-19 Moderna COVID-19 2020-05-09 Completed Co m[facility] Vaccine Vaccine 13:48:00 - [facility] Moderna COVID-19 Moderna COVID-19 2020-05-09 Completed Co m[facility] Vaccine Vaccine 13:48:00 - [facility] Moderna COVID-19 Moderna COVID-19 2020-05-09 Completed Co m[facility] Vaccine Vaccine 13:48:00 - [facility] Moderna COVID-19 Moderna COVID-19 2020-05-09 Completed Co m[facility] Vaccine Vaccine 13:48:00 - [facility] Moderna COVID-19 Moderna COVID-19 2020-05-09 Completed Co m[facility] Vaccine Vaccine 13:48:00 - [facility] Moderna COVID-19 Moderna COVID-19 2020-04-08 Completed Co m[facility] Vaccine Vaccine 13:48:00 - [facility] Moderna COVID-19 Moderna COVID-19 2020-04-08 Completed Co m[facility] Vaccine Vaccine 13:48:00 - [facility] Moderna COVID-19 Moderna COVID-19 2020-04-08 Completed Co m[facility] Vaccine Vaccine 13:48:00 - [facility] Moderna COVID-19 Moderna COVID-19 2020-04-08 Completed Co m[facility] Vaccine Vaccine 13:48:00 - [facility] Moderna COVID-19 Moderna COVID-19 2020-04-08 Completed [facility] Vaccine Vaccine 13:48:00 - [facility] Moderna COVID-19 Moderna COVID-19 2020-04-08 Completed [facility] Vaccine Vaccine 13:48:00 - [facility] Moderna COVID-19 Moderna COVID-19 2020-04-08 Completed [facility] Vaccine Vaccine 13:48:00 - [facility] Moderna COVID-19 Moderna COVID-19 2020-04-08 Completed [facility] Vaccine Vaccine 13:48:00 - [facility] Moderna COVID-19 Moderna COVID-19 2020-04-08 Completed Co [facility] Vaccine Vaccine 13:48:00 - [facility] Moderna COVID-19 Moderna COVID-19 2020-04-08 Completed [facility] Vaccine Vaccine 13:48:00 - [facility] Moderna COVID-19 Moderna COVID-19 2020-04-08 Completed [facility] Vaccine Vaccine 13:48:00 - [facility] Moderna COVID-19 Moderna COVID-19 2020-04-08 Completed [facility] Vaccine Vaccine 13:48:00 - [facility] Moderna COVID-19 Moderna COVID-19 2020-04-08 Completed [facility] Vaccine Vaccine 13:48:00 - [facility] Moderna COVID-19 Moderna COVID-19 2020-04-08 Completed [facility] Vaccine Vaccine 13:48:00 - [facility] Moderna COVID-19 Moderna COVID-19 2020-04-08 Completed [facility] Vaccine Vaccine 13:48:00 - [facility] Moderna COVID-19 Moderna COVID-19 2020-04-08 Completed [facility] Vaccine Vaccine 13:48:00 - [facility] Moderna COVID-19 Moderna COVID-19 2020-04-08 Completed [facility] Vaccine Vaccine 13:48:00 - [facility] Moderna COVID-19 Moderna COVID-19 2020-04-08 Completed [facility] Vaccine Vaccine 13:48:00 - [facility] FluAD FluAD 2020-01-17 Completed [facility] 11:24:00 - [facility] FluAD FluAD 2020-01-17 Completed [facility] 11:24:00 - [facility] FluAD FluAD 2020-01-17 Completed [facility] 11:24:00 [facility] FluAD FluAD 2020-01-17 Completed [facility] 11:24:00 [facility] FluAD FluAD 2020-01-17 Completed [facility] 11:24:00 [facility] FluAD FluAD 2020-01-17 Completed [facility] 11:24:00 - [facility] FluAD FluAD 2020-01-17 Completed [facility] 11:24:00 [facility] FluAD FluAD 2020-01-17 Completed [facility] 11:24:00 [facility] FluAD FluAD 2020-01-17 Completed [facility] 11:24:00 - [facility] FluAD FluAD 2020-01-17 Completed [facility] 11:24:00 - [facility] FluAD FluAD 2020-01-17 Completed [facility] 11:24:00 - [facility] FluAD FluAD 2020-01-17 Completed [facility] 11:24:00 - [facility] FluAD FluAD 2020-01-17 Completed [facility] 11:24:00 - [facility] FluAD FluAD 2020-01-17 Completed [facility] 11:24:00 - [facility] FluAD FluAD 2020-01-17 Completed [facility] 11:24:00 - [facility] FluAD FluAD 2020-01-17 Completed [facility] 11:24:00 - [facility] FluAD FluAD 2020-01-17 Completed [facility] 11:24:00 - [facility] FluAD FluAD 2020-01-17 Completed [facility] 11:24:00 - [facility] FluAD FluAD 2020-01-17 Completed [facility] 11:24:00 - [facility] Pneumovax (PPSV23) Pneumovax (PPSV23) 2017-11-08 Completed [facility] 13:48:00 - [facility] Pneumovax (PPSV23) Pneumovax (PPSV23) 2017-11-08 Completed [facility] 13:48:00 [facility] Pneumovax (PPSV23) Pneumovax (PPSV23) 2017-11-08 Completed [facility] 13:48:00 [facility] Pneumovax (PPSV23) Pneumovax (PPSV23) 2017-11-08 Completed [facility] 13:48:00 [facility] Pneumovax (PPSV23) Pneumovax (PPSV23) 2017-11-08 Completed [facility] 13:48:00 [facility] Pneumovax (PPSV23) Pneumovax (PPSV23) 2017-11-08 Completed [facility] 13:48:00 [facility] Pneumovax (PPSV23) Pneumovax (PPSV23) 2017-11-08 Completed [facility] 13:48:00 - [facility] Pneumovax (PPSV23) Pneumovax (PPSV23) 2017-11-08 Completed [facility] 13:48:00 - [facility] Pneumovax (PPSV23) Pneumovax (PPSV23) 2017-11-08 Completed [facility] 13:48:00 - [facility] Pneumovax (PPSV23) Pneumovax (PPSV23) 2017-11-08 Completed [facility] 13:48:00 - [facility] Pneumovax (PPSV23) Pneumovax (PPSV23) 2017-11-08 Completed [facility] 13:48:00 [facility] Pneumovax (PPSV23) Pneumovax (PPSV23) 2017-11-08 Completed [facility] 13:48:00 - [facility] Pneumovax (PPSV23) Pneumovax (PPSV23) 2017-11-08 Completed [facility] 13:48:00 - [facility] Pneumovax (PPSV23) Pneumovax (PPSV23) 2017-11-08 Completed [facility] 13:48:00 - [facility] Pneumovax (PPSV23) Pneumovax (PPSV23) 2017-11-08 Completed [facility] 13:48:00 - [facility] Pneumovax (PPSV23) Pneumovax (PPSV23) 2017-11-08 Completed [facility] 13:48:00 [facility] Pneumovax (PPSV23) Pneumovax (PPSV23) 2017-11-08 Completed [facility] 13:48:00 - [facility] Pneumovax (PPSV23) Pneumovax (PPSV23) 2017-11-08 Completed [facility] 13:48:00 [facility] Vital Signs Vital Name Observation Time Observation Value Comments Source height 2022-03-05 10:10:00 66.5 [in_i] [facility] weight 2022-03-05 10:10:00 158 [lb_av] [facility] temperature 2022-03-05 10:10:00 97.6 [degF] [facility] bmi 2022-03-05 10:10:00 25.12 kg/m2 [facility] oximetry 2022-03-05 10:10:00 95 % [facility] respiratory rate 2022-03-05 10:10:00 16 /min Comm on [facility] blood pressure 2022-03-05 10:10:00 118 mm[Hg] Common [facility] - systolic [facility] blood pressure 2022-03-05 10:10:00 70 mm[Hg] Common [facility] - diastolic [facility] height 2021-12-03 09:50:00 66.5 [in_i] [facility] weight 2021-12-03 09:50:00 156.0 [lb_av] [facility] temperature 2021-12-03 09:50:00 97.2 [degF] [facility] bmi 2021-12-03 09:50:00 24.8 kg/m2 [facility] oximetry 2021-12-03 09:50:00 98 % [facility] respiratory rate 2021-12-03 09:50:00 18 /min Comm on [facility] blood pressure 2021-12-03 09:50:00 129 mm[Hg] Common [facility] - systolic [facility] blood pressure 2021-12-03 09:50:00 59 mm[Hg] Common [facility] - diastolic [facility] height 2021-11-04 13:00:00 66.5 [in_i] Common [facility] weight 2021-11-04 13:00:00 156.3 [lb_av] [facility] temperature 2021-11-04 13:00:00 97.9 [degF] [facility] bmi 2021-11-04 13:00:00 24.85 kg/m2 Common [facility] oximetry 2021-11-04 13:00:00 96 % Common [facility] respiratory rate 2021-11-04 13:00:00 17 /min Comm on [facility] blood pressure 2021-11-04 13:00:00 132 mm[Hg] Common [facility] - systolic [facility] blood pressure 2021-11-04 13:00:00 67 mm[Hg] Common [facility] - diastolic [facility] height 2021-09-04 13:30:00 66.5 [in_i] Common [facility] weight 2021-09-04 13:30:00 156 [lb_av] Common [facility] temperature 2021-09-04 13:30:00 97.6 [degF] Common [facility] bmi 2021-09-04 13:30:00 24.8 kg/m2 [facility] oximetry 2021-09-04 13:30:00 96 % [facility] respiratory rate 2021-09-04 13:30:00 16 /min Comm on [facility] blood pressure 2021-09-04 13:30:00 135 mm[Hg] Common [facility] systolic [facility] blood pressure 2021-09-04 13:30:00 63 mm[Hg] Common [facility] - diastolic [facility] height 2021-09-04 14:00:00 66.5 [in_i] Common [facility] weight 2021-09-04 14:00:00 156 [lb_av] Common [facility] temperature 2021-09-04 14:00:00 97.6 [degF] Common [facility] bmi 2021-09-04 14:00:00 24.8 kg/m2 Common [facility] oximetry 2021-09-04 14:00:00 96 % Common [facility] respiratory rate 2021-09-04 14:00:00 16 /min Comm on [facility] blood pressure 2021-09-04 14:00:00 135 mm[Hg] Common [facility] - systolic [facility] blood pressure 2021-09-04 14:00:00 63 mm[Hg] [facility] - [facility] height 2021-05-27 11:40:00 68 [in_i] Common [facility] weight 2021-05-27 11:40:00 172 [lb_av] Common [facility] bmi 2021-05-27 11:40:00 26.15 kg/m2 Common [facility] height 2021-02-10 09:30:00 68 [in_i] Common [facility] weight 2021-02-10 09:30:00 172.7 [lb_av] [facility] temperature 2021-02-10 09:30:00 97.3 [degF] [facility] bmi 2021-02-10 09:30:00 26.26 kg/m2 [facility] oximetry 2021-02-10 09:30:00 99 % [facility] respiratory rate 2021-02-10 09:30:00 17 /min Comm on [facility] blood pressure 2021-02-10 09:30:00 138 mm[Hg] Common [facility] - systolic [facility] blood pressure 2021-02-10 09:30:00 72 mm[Hg] Common [facility] - diastolic [facility] height 2021 09:00:00 68 [in_i] Common [facility] weight 2021 09:00:00 169.3 [lb_av] [facility] temperature 2021 09:00:00 97.9 [degF] [facility] bmi 2021 09:00:00 25.74 kg/m2 [facility] oximetry 2021 09:00:00 96 % Common S [facility] - [facility] respiratory rate 2021 09:00:00 16 /min Comm on [facility] blood pressure 2021 09:00:00 132 mm[Hg] [facility] - systolic [facility] blood pressure 2021 09:00:00 65 mm[Hg] [facility] - diastolic [facility] height 2020-11-14 09:00:00 68 [in_i] Common S [facility] - [facility] weight 2020-11-14 09:00:00 168.6 [lb_av] Common [facility] temperature 2020-11-14 09:00:00 96.7 [degF] Common S pirit [facility] bmi 2020-11-14 09:00:00 25.63 kg/m2 Common S pirit [facility] oximetry 2020-11-14 09:00:00 91 % Common S [facility] - [facility] blood pressure 2020-11-14 09:00:00 120 mm[Hg] Common [facility] - systolic [facility] blood pressure 2020-11-14 09:00:00 60 mm[Hg] [facility] - diastolic [facility] height 2020-11-14 09:00:00 68 [in_i] Common S pirit [facility] weight 2020-11-14 09:00:00 168.6 [lb_av] Common [facility] temperature 2020-11-14 09:00:00 96.7 [degF] Common S [facility] - [facility] bmi 2020-11-14 09:00:00 25.63 kg/m2 Common S pirit [facility] oximetry 2020-11-14 09:00:00 91 % Common S [facility] - [facility] respiratory rate 2020-11-14 09:00:00 16 /min Comm on [facility] blood pressure 2020-11-14 09:00:00 120 mm[Hg] [facility] - systolic [facility] blood pressure 2020-11-14 09:00:00 60 mm[Hg] Common [facility] Procedures This patient has no known procedures. Encounters Start End Encounter Admission Attending Care Care Encounter Source Date/Time Date/Time Type Type Clinicians Facility Department ID 2022-03-05 Outpatient Maldonado, STLMLC STLMLC [id number] Common 08:03:00 Uri [id number] [facility] 2021-12-01 Outpatient Maldonado, STLMLC STLMLC [id number] Common 10:32:00 Uri [id number] [facility] 2021-03-05 Outpatient Maldonado, STLMLC STLMLC [id number] Common 12:35:45 Uri [id number] [facility] 2021-03-05 Outpatient Maldonado, STLMLC STLMLC [id number] Common 12:12:17 Uri [id number] [facility] 2021-03-05 Outpatient Maldonado, STLMLC STLMLC [id number] Common 11:46:55 Uri [id number] [facility] 2021-03-05 Outpatient Maldonado, STLMLC STLMLC [id number] Common 11:25:09 Uri [id number] [facility] 2021-03-05 Outpatient Maldonado, STLMLC STLMLC [id number] Common 11:16:20 Uri [id number] [facility] 2021-03-05 Outpatient Maldonado, STLMLC STLMLC [id number] Common 11:07:31 Uri [id number] [facility] 2021-03-05 Outpatient Maldonado, STLMLC STLMLC [id number] Common 11:02:46 Uri [id number] [facility] 2022-03-05 2022-03-05 OFFICE STLMLC STLMLC [id number] Co mmon 00:00:00 00:00:00 VISIT [facility] LEVEL 4 [facility] 2022-02-20 2022-02-20 (TEL) STLMLC STLMLC [id number] Co mmon 00:00:00 00:00:00 [facility] 2022-01-22 2022-01-22 (TEL) STLMLC STLMLC [id number] Co mmon 00:00:00 00:00:00 [facility] 2021-12-03 2021-12-03 OFFICE STLMLC STLMLC [id number] Co mmon 00:00:00 00:00:00 VISIT [facility] ESTAB PT - [facility] LEVEL 4 [facility] 2021-11-04 2021-11-04 OFFICE STLMLC STLMLC [id number] Co mmon 00:00:00 00:00:00 VISIT [facility] ESTAB PT - [facility] LEVEL 4 [facility] 2021-10-30 2021-10-30 (TEL) STLMLC STLMLC [id number] Co mmon 00:00:00 00:00:00 [facility] 2021-09-04 2021-09-04 (TEL) STLMLC STLMLC [id number] Co mmon 00:00:00 00:00:00 [facility] 2021-09-04 2021-09-04 OFFICE STLMLC STLMLC [id number] Co mmon 00:00:00 00:00:00 VISIT [facility] ESTAB PT - [facility] LEVEL 4 [facility] 2021-09-04 2021-09-04 SUB ANNUAL STLMLC STLMLC [id number] Common 00:00:00 00:00:00 MCR [facility] WELLNESS - [facility] VISIT [facility] 2021-07-31 2021-07-31 (TEL) STLMLC STLMLC [id number] Co mmon 00:00:00 00:00:00 [facility] 2021-05-27 2021-05-27 OFFICE STLMLC STLMLC [id number] Co mmon 00:00:00 00:00:00 VISIT EST Spir it PT LEVEL 3 - [facility] 2021-05-27 2021-05-27 (TEL) STLMLC STLMLC [id number] Co mmon 00:00:00 00:00:00 [facility] 2021-02-10 2021-02-10 OFFICE STLMLC STLMLC [id number] Co mmon 00:00:00 00:00:00 VISIT [facility] ESTAB PT - [facility] LEVEL 4 [facility] 2021 2021 (HOSP F/U) STLMLC STLMLC [id number] Common 00:00:00 00:00:00 [facility] 2021-01-23 2021-01-23 (TEL) STLMLC STLMLC [id number] Co mmon 00:00:00 00:00:00 [facility] 2020-11-14 2020-11-14 OFFICE STLMLC STLMLC [id number] Co mmon 00:00:00 00:00:00 VISIT [facility] PT [facility] LEVEL 4 [facility] 2020-11-14 2020-11-14 SUB ANNUAL STLMLC STLMLC [id number] Common 00:00:00 00:00:00 MCR [facility] VISIT [facility] 2020-08-13 2020-08-13 Outpatient STLMLC STLMLC [id number] Common 00:00:00 00:00:00 [facility] 2020-06-11 2020-06-11 Outpatient STLMLC STLMLC [id number] Common 00:00:00 00:00:00 [facility] 2020-04-23 2020-04-23 Outpatient STLMLC STLMLC [id number] Common 00:00:00 00:00:00 [facility] 2020-04-16 2020-04-16 Outpatient STLMLC STLMLC [id number] Common 00:00:00 00:00:00 [facility] 2020-04-15 2020-04-15 Outpatient STLMLC STLMLC [id number] Common 00:00:00 00:00:00 [facility] 2020-01-17 2020-01-17 Outpatient STLMLC STLMLC [id number] Common 00:00:00 00:00:00 [facility] 2020-01-15 2020-01-15 Outpatient STLMLC STLMLC [id number] Common 00:00:00 00:00:00 [facility] 2019-11-30 2019-11-30 Outpatient STLMLC STLMLC [id number] Common 00:00:00 00:00:00 [facility] 2019-11-16 2019-11-16 Outpatient STLMLC STLMLC [id number] Common 00:00:00 00:00:00 [facility] 2019-10-26 2019-10-26 Outpatient Krista Velascot [id number] Common 10:15:00 10:15:00 t Specialty/U Sp eliza Specialty rology - [facility] 2019-10-18 2019-10-18 Outpatient Krista Velascot [id number] Common 11:40:00 11:40:00 t [employer] [facility]ir [facility] 2019-10-10 2019-10-10 Outpatient Krista Velascot [id number] Common 09:00:00 09:00:00 t Specialty/U Sp eliza Specialty rology - [facility] /[facility] 2019-09-27 2019-09-27 Outpatient Krista Velascot [id number] Common 10:00:00 10:00:00 t Specialty/U Sp eliza Specialty rology - [facility] 2019-09-26 2019-09-26 Outpatient Krista Velascot [id number] Common 11:15:00 11:15:00 t Specialty/U Sp eliza Specialty rology - [facility] /[facility] 2019-09-06 2019-09-06 Outpatient Krista Velascot [id number] Common 14:14:00 14:14:00 t Specialty/U Sp eliza Specialty rology - [facility] 2019-08-09 2019-08-09 Outpatient Krista Velascot [id number] Common 10:30:00 10:30:00 t Specialty/U Sp eliza Specialty rology - [facility] /[facility] 2019-08-07 2019-08-07 Outpatient Krista Velascot [id number] Common 09:45:00 09:45:00 t Specialty/U Sp eliza Specialty rology - [facility] 2019-07-31 2019-07-31 Outpatient Krista Velascot [id number] Common 09:29:00 09:29:00 t Specialty/U Sp eliza Specialty rology - [facility] /[facility] 2019-07-27 2019-07-27 [facility] [id number] Common 13:45:00 13:45:00 t Specialty/U Sp eliza Specialty rology - [facility] 2019-07-24 2019-07-24 Out[facility] [id number] Common 08:08:00 08:08:[address] [facility] 2019-07-18 2019-07-18 Out[facility] [id number] Common 10:30:00 10:30:[address] [facility] 2019-07-04 2019-07-04 Out[facility] [id number] Common 14:52:00 14:52:[address] [facility] 2019-04-13 2019-04-13 [facility] [id number] Common 09:15:00 09:15:[address] [facility] 2019-04-13 2019-04-13 [facility] [id number] Common 09:00:00 09:00:[address] [facility] 2019-03-29 2019-03-29 [facility] [id number] Common 15:50:00 15:50:[address] [facility] 2018-12-27 2018-12-27 [facility] [id number] Common 16:30:00 16:30:[address] [facility] 2018-12-19 2018-12-19 [facility] [id number] Common 16:47:00 16:47:[address] [facility] 2018-12-19 2018-12-19 [facility] [id number] Common 16:04:00 16:04:[address] [facility] 2018-10-05 2018-10-05 [facility] [id number] Common 16:53:00 16:53:[address] [facility] 2018-10-03 2018-10-03 [facility] [id number] Common 14:09:00 14:09:[address] [facility] 2018-08-02 2018-08-02 [facility] [id number] Common 10:00:00 10:00:[address] [facility] 2018-06-14 2018-06-14 [facility] [id number] Common 10:36:00 10:36:[address] [facility] 2018-04-20 2018-04-20 [facility] [id number] Common 08:30:00 08:30:[address] [facility] 2018-01-20 2018-01-20 [facility] [id number] Common 08:30:00 08:30:[address] [facility] 2018-01-19 2018-01-19 [facility] [id number] Common 10:01:00 10:01:[address] [facility] 2017-11-02 2017-11-02 [facility] [id number] Common 13:45:00 13:45:[address] [facility] 2017-08-10 2017-08-10 [facility] [id number] Common 14:45:00 14:45:[address] [facility] 2017-05-28 2017-05-28 [facility] [id number] Common 10:15:00 10:15:[address] [facility] Results This patient has no known results.
[2022-06-04] MEDS ORDERED: ALBUTEROL 2.5 MG/3 ML NEB SOL ONE (17:04)
[2022-06-04 17:38] LABS: Arterial Blood Carboxyhemoglob 1.6 % (0-1.5); Blood Gas Oxyhemoglobin 85.7 % (94-97); Blood O2 Saturation 88.4 % (92-98.5)
--- NOTE | 2022-06-04 17:38 | RAD REPORT ---
[facility]08 pm CLINICAL HISTORY: DYSPNEA COMPARISON: Chest Single View dated 12/28/2021; Chest Single View dated 12/27/2021; Chest Single Vie w dated 12/08/2021; Chest Single View dated 10/21/2021 TECHNIQUE: Portable AP view of the chest. FINDINGS: Right basilar patchy airspace opacification is progressive since the prior exam, particula rly in the medial right base. Hyperinflation in the upper aspects of the lungs. No pneumothorax or ef fusion. The cardiomediastinal contours are unremarkable. IMPRESSION: Progressive right basilar patchy airspace opacification.
[2022-06-04 18:17] LABS: Absolute Lymphocytes (CBC) 1.3 K/uL (0.7-4.9); Hematocrit 41.7 % (39.6-49.0); Lymphocytes % 9.2 % (15.3-44.8); MCV 87.5 fL (80-100); MPV 6.9 fL (7.6-11.3); RBC Red Blood Cell Count 4.77 M/uL (4.33-5.43)
[2022-06-04 18:40] LABS: Troponin High Sensitivity 16.5 pg/mL (<58.9)
--- NOTE | 2022-06-04 18:55 | EDPHYS ---
Physician Documentation [facility] Name: Jose Marcelino Age: 72 yrs Sex: Male : 1950 Arrival Date: 06/04/2022 Time: 16:51 Bed 19 Private MD: ED Physician Reed Hill HPI: 06/04 17:00 This 72 yrs old Male presents to ER via EMS with complaints of Shortness of Breath. cp 17:00 The patient has shortness of breath at rest. cp 17:00 Onset: The symptoms/episode began/occurred 2 day(s) ago. cp 17:00 Duration: The symptoms are continuous, and are steadily getting worse. The patient's cp shortness of breath is aggravated by light activity. Associated signs and symptoms: Pertinent positives: productive cough, Pertinent negatives: chest pain, fever, hemoptysis, vomiting. Severity of symptoms: in the emergency department the symptoms are unchanged despite home interventions. The patient has experienced similar episodes in the past, multiple times. Historical: - Allergies: 18:23 Atrovent; nj1 - Home Meds: 18:23 lisinopril 5 mg Oral tablet 1 tab daily [Active]; triamterene-hydrochlorothiazid nj1 37.5-25 mg Oral capsule 1 cap every morning [Active]; prednisone 20 mg Oral tablet 2 times per day [Active]; simvastatin 80 mg Oral tablet 1 tab every day at bedtime [Active]; benzonatate oral 3 times per day [Active]; diclofenac sodium topical [Active]; Albuterol Inhl [Active]; metformin 1,000 mg Oral tablet 1 tab 2 times per day [Active]; [place] 7.5 Oral 1 tablet twice a day [Active]; 19:31 levofloxacin 500 mg Oral tablet 1 tab daily [Active]; sertraline oral [Active]; Lyrica nj1 Oral 2 times per day [Active]; theophylline Oral [Active]; - PMHx: 18:23 Chronic obstructive lung disease; diabetes mellitus; Hypertensive disorder; nj1 - Immunization history:: Client reports receiving the 2nd dose of the Covid vaccine. - Social history:: Smoking status: Patient reports the use of cigarette tobacco products, smokes one-half pack cigarettes per day. ROS: 17:05 Constitutional: Negative for body aches, fever, poor PO intake. cp 17:05 Eyes: Negative for injury, pain, redness, and discharge. cp 17:05 ENT: Negative for drainage from ear(s), ear pain, sore throat, difficulty swallowing, difficulty handling secretions. 17:05 Cardiovascular: Negative for chest pain, edema. 17:05 Respiratory: Positive for cough, "sounds productive", shortness of breath, wheezing. 17:05 Abdomen/GI: Negative for abdominal pain, nausea, vomiting, and diarrhea. 17:05 Back: Negative for pain at rest, pain with movement. 17:05 Neuro: Negative for altered mental status, headache, numbness. 17:05 All other systems are negative. Exam: 17:09 Constitutional: The patient appears alert, awake, non-diaphoretic, non-toxic, well cp developed, well nourished, in obvious distress, mildly distressed. 17:09 Head/Face: Normocephalic, atraumatic. cp 17:09 Eyes: Periorbital structures: appear normal, Conjunctiva: normal, no exudate, no injection, Sclera: no appreciated abnormality, Lids and lashes: appear normal, bilaterally. 17:09 ENT: External ear(s): are unremarkable, Nose: is normal, Mouth: Lips: moist, Oral mucosa: pink and intact, moist, Posterior pharynx: is normal, airway is patent, no erythema, no exudate. 17:09 Neck: ROM/movement: is normal, is supple, without pain, no range of motions limitations, no meningismus, Lymph nodes: no appreciated lymphadenopathy. 17:09 Chest/axilla: Inspection: normal, Palpation: is normal, no crepitus, no tenderness. 17:09 Cardiovascular: Rate: tachycardic, Rhythm: regular, Edema: is not appreciated, JVD: is not appreciated. 17:09 Respiratory: mild respiratory distress is noted, Respirations: labored breathing, that is mild, intercostal retractions, that is mild, Breath sounds: decreased breath sounds, that are mild, throughout, stridor, is not appreciated, wheezing: that is mild, is heard diffusely. 17:09 Abdomen/GI: Inspection: abdomen appears normal, Bowel sounds: active, all quadrants, Palpation: abdomen is soft and non-tender, in all quadrants. 17:09 Back: pain, is absent, ROM is normal. 17:09 Skin: no rash present. 17:09 Neuro: Orientation: to person, place \\T\\ time. Mentation: is normal, Motor: moves all fours, strength is normal, Sensation: is normal. 17:12 ECG was reviewed by the Attending Physician. Vital Signs: 16:45 BP 152 / 74; Pulse 101; Resp 30; Temp 99.8(O); Pulse Ox 97% on Breathing tx; Weight nj1 68.04 kg; Height 5 ft. 8 in. ; 17:42 BP 131 / 62; Pulse 104; Pulse Ox 100% on Breathing tx; nj1 18:45 Pulse 108; Resp 28; Pulse Ox 97% on 3 lpm NC; nj1 21:10 BP 138 / 56; Pulse 93; Resp 21; Temp 99; Pulse Ox 96% on 3 lpm NC; ha1 21:36 BP 138 / 56; Pulse 98; Pulse Ox 93% on 3 lpm NC; ha1 22:00 BP 109 / 45; Pulse 92; Resp 22; Pulse Ox 97% on 3 lpm NC; ha1 23:00 BP 116 / 53; Pulse 83; Resp 20 S; Pulse Ox 97% on 3 lpm NC; ha1 16:45 Body Mass Index 22.81 (68.04 kg, 172.72 cm) nj1 MDM: 16:54 Patient medically screened. ms3 20:45 Data reviewed: vital signs, nurses notes, lab test result(s), EKG, radiologic studies, cp CT scan, plain films, I have discussed the patient's presentation/case with the attending Emergency Department Physician;. 20:45 Differential diagnosis: Myocardial Infarction pneumonia, pulmonary edema, Pulmonary cp Embolism Sepsis Unstable Angina. Antibiotic administration: Rocephin and Zithromax given. I considered the following discharge prescriptions or medication management in the emergency department Medications were administered in the Emergency Department. See MAR. Care significantly affected by the following chronic conditions: Diabetes, Hypertension, Chronic Obstructive Pulmonary Disease. Counseling: I had a detailed discussion with the patient and/or guardian regarding: the historical points, exam findings, and any diagnostic results supporting the discharge/admit diagnosis, lab results, radiology results, the need to transfer to another facility, due to our facility being at capacity for beds. Response to treatment: the patient's symptoms have markedly improved after treatment. 06/04 16:55 Order name: Basic Metabolic Panel; Complete Time: 19:29 ms3 06/04 19:30 Interpretation: Normal except: NA 128; CL 95; GLUC 108; BUN 39; GFR 62. 06/04 16:55 Order name: CBC with Diff; Complete Time: 18:20 ms3 06/04 18:21 Interpretation: Normal except: WBC 14.50; RDW 15.3; MPV 6.9; MARGARITA% 87.1; LYM% 9.2; NEUT cp A 12.6. 06/04 16:55 Order name: Magnesium; Complete Time: 19:29 ms3 06/04 16:55 Order name: NT PRO-BNP; Complete Time: 19:29 ms3 06/04 16:55 Order name: Troponin HS; Complete Time: 19:29 ms3 06/04 17:03 Order name: ABG; Complete Time: 18:20 06/04 17:03 Order name: COVID-19 SARS RT PCR; Complete Time: 18:20 06/04 18:36 Interpretation: Reviewed. 06/04 17:03 Order name: Influenza Screen (a \\T\\ B); Complete Time: 18:20 06/04 17:42 Order name: Lactate w/ 2H reflex if indic.; Complete Time: 19:29 06/04 19:30 Interpretation: Abnormal: LAC 2.2. 06/04 17:42 Order name: Blood Culture Adult (2) 06/04 17:42 Order name: D-Dimer; Complete Time: 18:27 06/04 22:38 Order name: Lactate Sepsis 2 HR Follow-up [facility] 06/04 16:55 Order name: XRAY Chest (1 view); Complete Time: 18:20 ms3 06/04 18:37 Order name: CT Chest For PE Angio; Complete Time: 20:42 06/04 20:43 Interpretation: Report reviewed. 06/04 16:55 Order name: EKG; Complete Time: 16:56 ms3 06/04 16:55 Order name: Cardiac monitoring; Complete Time: 16:56 ms3 06/04 16:55 Order name: EKG - Nurse/Tech; Complete Time: 17:08 ms3 06/04 16:55 Order name: IV Saline Lock; Complete Time: 16:56 ms3 06/04 16:55 Order name: Labs collected and sent; Complete Time: 16:56 ms3 06/04 16:55 Order name: O2 Per Protocol; Complete Time: 16:56 ms3 06/04 16:55 Order name: O2 Sat Monitoring; Complete Time: 16:56 ms3 EC:12 Rate is 97 beats/min. Rhythm is regular. GA interval is normal. QRS interval is cp prolonged at 134 msec. QT interval is normal. T waves are Inverted in leads aVR, V2, V3, V4. Interpreted by me. Reviewed by me. Administered Medications: 17:08 Drug: Albuterol Inhalation 2.5 mg Route: Inhalation; ko1 17:15 Drug: Albuterol Inhalation 2.5 mg Route: Inhalation; ko1 20:05 Drug: NS 0.9% IV 500 ml Route: IV; Rate: bolus; Site: right forearm; ha1 22:52 Follow up: Response: No adverse reaction; IV Status: Completed infusion; IV Intake: ha1 500ml 20:05 Drug: NS 0.9% IV 500 ml Route: IV; Rate: 125 ml/hr; Site: right forearm; ha1 20:06 Drug: Rocephin IV 1 grams Route: IV; Rate: calculated rate; Site: right forearm; ha1 20:20 Follow up: Response: No adverse reaction; IV Status: Completed infusion; IV Intake: [id number] 20:10 Drug: Zithromax IVPB 500 mg Route: IVPB; Infused Over: 1 hrs; Site: right forearm; ha1 20:35 Follow up: Response: No adverse reaction; IV Status: Completed infusion; IV Intake: ha1 250ml Disposition: 18:45 Co-signature as Attending Physician, Reed ELIZONDO was immediately available on-site ms3 in the Emergency Department for consultation in the care of the patient. Disposition Summary: 06/04/22 18:54 Transfer Ordered Reason: Higher level of care cp Condition: Stable cp Problem: new cp Symptoms: have improved cp Transfer Location: Other Acute Care Facility(06/04/22 22:27) cp Accepting Physician: Doctor(06/04/22 23:58) ha1 Diagnosis - SARS-associated coronavirus as the cause of diseases classified elsewhere cp - Pneumonia due to other specified infectious organisms cp - COPD/ Chronic obstructive pulmonary disease with (acute) exacerbation cp - Hypoxemia cp Discharge Instructions: - Discharge Summary Sheet nj1 Forms: - Medication Reconciliation Form cp - SBAR form nj1 Signatures: Dispatcher [employer] EDMS Morgan Rm, CLIP LOADING MACHINE FEEDER-C CLIP LOADING MACHINE FEEDER-Cla1 Emeka Hernandez PA PA cp Sims, Marcus, DO DO ms3 Traci Chacon, RN RN ha1 Daisha Becerra RN RN ko1 Mary Beth Guaman RN RN nj1 Corrections: (The following items were deleted from the chart) 20:44 18:54 Doctor cp cp 20:44 18:54 Pneumonia due to SARS-associated coronavirus cp cp 20:46 20:44 Doctor cp cp 21:31 20:46 Doctor cp cp 22:27 18:54 [facility] cp cp 22:27 21:31 Doctor cp cp 23:58 22:27 Doctor cp ha1
--- NOTE | 2022-06-04 18:55 | ER ---
Nurse's Notes [facility] Name: Jose Marcelino Age: 72 yrs Sex: Male : 1950 Arrival Date: 06/04/2022 Time: 16:51 Bed 19 Private MD: Diagnosis: SARS-associated coronavirus as the cause of diseases classified elsewhere;Pneumonia due to other specified infectious organisms;COPD/ Chronic obstructive pulmonary disease with (acute) exacerbation;Hypoxemia Presentation: 06/04 17:42 Chief complaint: EMS states: COPD exacerbation for a few days, albuterol tx not nj1 working, 88% on room air. Given albuterol x2, solumedrol 125mg, zofran 4mg and 250ml NS. Possible allergy to Atrovent. Ebola Screen: Patient denies travel to an Ebola-affected area in the 21 days before illness onset. Initial Sepsis Screen: Does the patient meet any 2 criteria? HR > 90 bpm. Risk Assessment: Do you want to hurt yourself or someone else? Patient reports no desire to harm self or others. Onset of symptoms. 17:42 Method Of Arrival: EMS: [place] [id number] 17:42 Acuity: [facility] 3 nj 17:42 Coronavirus screen: Vaccine status: Patient reports receiving the 2nd dose of the covid nj1 vaccine. Initial Sepsis Screen: Does the patient meet any 2 criteria? RR > 20 per min. HR > 90 bpm. Yes Does the patient have a suspected source of infection? No. Patient's initial sepsis screen is negative. Historical: - Allergies: 18:23 Atrovent; nj1 - Home Meds: 18:23 lisinopril 5 mg Oral tablet 1 tab daily [Active]; triamterene-hydrochlorothiazid nj1 37.5-25 mg Oral capsule 1 cap every morning [Active]; prednisone 20 mg Oral tablet 2 times per day [Active]; simvastatin 80 mg Oral tablet 1 tab every day at bedtime [Active]; benzonatate oral 3 times per day [Active]; diclofenac sodium topical [Active]; Albuterol Inhl [Active]; metformin 1,000 mg Oral tablet 1 tab 2 times per day [Active]; [place] 7.5 Oral 1 tablet twice a day [Active]; 19:31 levofloxacin 500 mg Oral tablet 1 tab daily [Active]; sertraline oral [Active]; Lyrica nj1 Oral 2 times per day [Active]; theophylline Oral [Active]; - PMHx: 18:23 Chronic obstructive lung disease; diabetes mellitus; Hypertensive disorder; nj1 - Immunization history:: Client reports receiving the 2nd dose of the Covid vaccine. - Social history:: Smoking status: Patient reports the use of cigarette tobacco products, smokes one-half pack cigarettes per day. Screenin:05 [facility] ED Fall Risk Assessment (Adult) History of falling in the last 3 months, ha1 including since admission No falls in past 3 months (0 pts) Confusion or Disorientation No (0 pts) Intoxicated or Sedated No (0 pts) Impaired Gait No (0 pts) Mobility Assist Device Used Yes (1 pt) Altered Elimination No (0 pt) Score/Fall Risk Level 0 - 2 = Low Risk Oriented to surroundings, Maintained a safe environment, Educated pt \T\ family on fall prevention, incl call for assistance when getting out of bed, Hourly rounding (assess needs \T\ fall precautionary measures) done. 20:00 Abuse screen: Denies threats or abuse. Denies injuries from another. Nutritional ha1 screening: No deficits noted. Tuberculosis screening: No symptoms or risk factors identified. Assessment: 16:45 General: Appears distressed, uncomfortable, Behavior is cooperative. Pain: Denies pain. nj1 Neuro: Level of Consciousness is awake, alert, obeys commands, Oriented to person, place, time, situation. Cardiovascular: Patient's skin is warm and dry. Respiratory: Reports shortness of breath cough that is labored breathing Airway is patent Respiratory effort is labored, Sputum is thick, yellow Breath sounds are diminished Breath sounds with wheezes. 18:22 Reassessment: Patient appears in no apparent distress at this time. Patient and/or nj1 family updated on plan of care and expected duration. Pain level reassessed. Patient states feeling better. Patient states symptoms have improved. Respiratory: Respiratory effort is unlabored. 19:20 General: Appears uncomfortable, Behavior is calm, cooperative. Pain: Denies pain. ha1 Neuro: Level of Consciousness is awake, alert, obeys commands, Oriented to person, place, time, situation. Cardiovascular: Reports shortness of breath, Capillary refill < 3 seconds Patient's skin is warm and dry. Rhythm is sinus rhythm. Respiratory: Reports shortness of breath at rest Airway is patent Respiratory effort is even, Respiratory pattern is regular, tachypnea Breath sounds are coarse bilaterally. GI: Abdomen is flat, non-distended, Bowel sounds present X 4 quads. Reports nausea, vomiting. : No signs and/or symptoms were reported regarding the genitourinary system. EENT: No signs and/or symptoms were reported regarding the EENT system. Derm: Skin is fragile, Skin is pink, warm \T\ dry. 19:30 Reassessment: Patient and/or family updated on plan of care and expected duration. Pain ha1 level reassessed. 20:00 Reassessment: Patient and/or family updated on plan of care and expected duration. Pain ha1 level reassessed. back from CT. 20:00 Respiratory: Airway is patent Respiratory effort is even, Respiratory pattern is ha1 tachypnea. 20:00 General: Behavior is calm, cooperative. ha1 21:00 Reassessment: Patient and/or family updated on plan of care and expected duration. Pain ha1 level reassessed. Respiratory: Airway is patent Respiratory effort is unlabored, Respiratory pattern is tachypnea. 21:00 Neuro: Oriented to person, place, time, situation. ha1 22:00 Reassessment: Patient and/or family updated on plan of care and expected duration. Pain ha1 level reassessed. Respiratory: Airway is patent Respiratory effort is unlabored, Respiratory pattern is regular, symmetrical. Musculoskeletal: Circulation, motion, and sensation intact. Range of motion: intact in all extremities. 23:00 Reassessment: Patient and/or family updated on plan of care and expected duration. Pain ha1 level reassessed. Patient is alert, oriented x 3, equal unlabored respirations, skin warm/dry/pink. 23:17 Reassessment: report given to receiving nurse RAMON Weston. ha1 Vital Signs: 16:45 BP 152 / 74; Pulse 101; Resp 30; Temp 99.8(O); Pulse Ox 97% on Breathing tx; Weight nj1 68.04 kg; Height 5 ft. 8 in. ; 17:42 BP 131 / 62; Pulse 104; Pulse Ox 100% on Breathing tx; nj1 18:45 Pulse 108; Resp 28; Pulse Ox 97% on 3 lpm NC; nj1 21:10 BP 138 / 56; Pulse 93; Resp 21; Temp 99; Pulse Ox 96% on 3 lpm NC; ha1 21:36 BP 138 / 56; Pulse 98; Pulse Ox 93% on 3 lpm NC; ha1 22:00 BP 109 / 45; Pulse 92; Resp 22; Pulse Ox 97% on 3 lpm NC; ha1 23:00 BP 116 / 53; Pulse 83; Resp 20 S; Pulse Ox 97% on 3 lpm NC; ha1 16:45 Body Mass Index 22.81 (68.04 kg, 172.72 cm) nj1 ED Course: 16:54 Patient arrived in ED. ko1 16:54 Reed Hill DO is Attending Physician. ms3 16:54 Emeka Hernandez PA is PHCP. cp 17:08 ABG Sent. ko1 17:09 EKG done, by ED staff, reviewed by Emeka STAPLES. mb9 17:09 Placed in gown. Bed in low position. Call light in reach. Side rails up X 1. Client mb9 placed on continuous cardiac and pulse oximetry monitoring. NIBP monitoring applied. school lunch monitor on. 17:10 XRAY Chest (1 view) In Process Unspecified. EDMS 17:14 Influenza Screen (a \T\ B) Sent. ko1 17:14 COVID-19 SARS RT PCR Sent. ko1 17:41 Mary Beth Guaman, RN is Primary Nurse. nj1 17:46 Triage completed. nj1 18:00 Maintain EMS IV. Dressing intact. Site clean \T\ dry. Gauge \T\ site: 20 R Wrist. nj 1 18:00 Initial lab(s) drawn, by ms, sent to lab. First set of blood cultures drawn by me. nj1 Oxygen administration via nasal cannula \T\ 3L/min. 18:10 D-Dimer Sent. nj1 18:10 Lactate w/ 2H reflex if indic. Sent. nj1 19:05 Arm band placed on right wrist. ha1 20:08 CT Chest For PE Angio In Process Unspecified. EDMS 21:30 Initiated transfer to [facility], spoke with Gill. wm 22:48 Pt accepted for transfer to [facility] by Stephanie Soria \T\ 2227 per Gill Morfin. wm 23:55 No provider procedures requiring assistance completed. ha1 23:55 Patient transferred, IV remains in place. ha1 Administered Medications: 17:08 Drug: Albuterol Inhalation 2.5 mg Route: Inhalation; ko1 17:15 Drug: Albuterol Inhalation 2.5 mg Route: Inhalation; ko1 20:05 Drug: NS 0.9% IV 500 ml Route: IV; Rate: bolus; Site: right forearm; ha1 22:52 Follow up: Response: No adverse reaction; IV Status: Completed infusion; IV Intake: ha1 500ml 20:05 Drug: NS 0.9% IV 500 ml Route: IV; Rate: 125 ml/hr; Site: right forearm; ha1 20:06 Drug: Rocephin IV 1 grams Route: IV; Rate: calculated rate; Site: right forearm; ha1 20:20 Follow up: Response: No adverse reaction; IV Status: Completed infusion; IV Intake: [id number] 20:10 Drug: Zithromax IVPB 500 mg Route: IVPB; Infused Over: 1 hrs; Site: right forearm; ha1 20:35 Follow up: Response: No adverse reaction; IV Status: Completed infusion; IV Intake: ha1 250ml Medication: 23:50 VIS not applicable for this client. ha1 Intake: 20:20 IV: 50ml; Total: 50ml. ha1 20:35 IV: 250ml; Total: 300ml. ha1 22:52 IV: 500ml; Total: 800ml. ha1 Outcome: 18:54 ER care complete, transfer ordered by MD. cp 23:55 Transferred by ground EMS Note: [facility] ambulance. to [facility] ha1 23:55 Condition: stable 23:55 Discharge instructions given to patient, Instructed on the need for transfer, Demonstrated understanding of instructions. 23:58 Patient left the ED. ha1 Signatures: Dispatcher [employer] EDMS Emeka Hernandez PA PA cp Sims, Marcus, DO DO ms3 Damari Flynn Heidy, RN RN ha1 Daisha Becerra RN RN ko1 Effie Peres RN RN mb9 Mary Beth Guaman RN RN nj1 Corrections: (The following items were deleted from the chart) 06/05 01:37 06/04 20:00 Reassessment: Patient and/or family updated on plan of care and expected ha1 duration. Pain level reassessed. back from CT ha1 06/05 01:38 06/04 21:00 Respiratory: Airway is patent Respiratory effort is unlabored, labored, ha1 Respiratory pattern is tachypnea 1 06/05 01:39 06/04 22:00 Respiratory: Airway is patent Respiratory effort is unlabored, labored, ha1 Respiratory pattern is regular, symmetrical, ha1
[2022-06-04] MEDS ORDERED: CEFTRIAXONE 1000 MG/VIAL ONE (19:00)
[2022-06-04] MEDS ORDERED: AZITHROMYCIN 500 MG INJ IVPB ONE (19:00)
[2022-06-04] MEDS ORDERED: NA CHLORIDE 0.9% 250 ML ONE (19:00)
[2022-06-04] MEDS ORDERED: NA CHLORIDE 0.9% 50 ML ONE (19:01)
[2022-06-04] MEDS ORDERED: NA CHLORIDE 0.9% 1,000 ML ONE (20:31)
--- NOTE | 2022-06-04 20:36 | RAD REPORT ---
EXAM DESCRIPTION: CT - Chest For Pe Angio - 06/04/2022 8:06 pm CLINICAL HISTORY: SOB COMPARISON: Thorax Wo Con dated 03/26/2022; Thorax Wo Con dated 10/22/2021; Thorax Wo Con dated 022; Lung Cancer Screening CT W/O dated 08/01/2021; Chest Single View dated 06/04/2022 TECHNIQUE: Thin axial CT images of the chest were obtained following administration of 100 mL mL Iso marysol 370 IV contrast. Multiplanar reconstructions, and maximum intensity projection reconstructions we re generated and reviewed. Exam utilizes a protocol for optimal evaluation of pulmonary arterial tree . All CT scans are performed using dose optimization technique as appropriate and may include automated exposure control or mA/KV adjustment according to patient size. FINDINGS: Pulmonary arteries are normal. No emboli or other suspicious finding. No acute or signific ant aorta findings. Background advanced centrilobular emphysematous changes. Patchy right basal airspace opacities, inclu ding tree-in-bud opacities, progressive since the prior CT. No pleural thickening or pleural effusion . No pneumothorax. No abnormal mediastinal or hilar masses or lymphadenopathy seen. No chest wall mass or abnormal axill iary lymphadenopathy. IMPRESSION: No evidence of acute central pulmonary emboli. Patchy right basal airspace opacities, including tree-in-bud opacities, progressive since the prior C T, concerning for an infectious/inflammatory process such as pneumonia.
[2022-06-05 01:46] VITALS: TEMP 99
[2022-06-05 01:49] VITALS: BP 109/45; O2SAT 97
--- NOTE | 2022-06-05 07:00 | EKG ---
Test Date: 2022-06-04 Test Time: 17:06:14 [place] Operator: MB MEASUREMENT RESULTS: Intervals: Rate: 97 LA: 166 QRSD: 134 QT: 342 QTc: 434 [place]: P: 81 LA: 166 QRS: 63 T: 74 INTERPRETIVE STATEMENTS: Normal sinus rhythm with sinus arrhythmia Right bundle branch block Abnormal ECG Compared to ECG 12/27/2021 13:56:56 Sinus tachycardia no longer present Electronically Signed On 06-05-22 06:59:43 CDT by Parvez Regalado
== END 2022-06-04 23:58 ==
LOC: ER 16:51
DX: U07.1 COVID-19 (principal); J16.8 Pneumonia due to other specified infectious organisms; R09.02 Hypoxemia; J44.1 Chronic obstructive pulmonary disease with (acute) exacerbation; I10 Essential (primary) hypertension; E11.9 Type 2 diabetes mellitus without complications; F17.210 Nicotine dependence, cigarettes, uncomplicated; Z88.8 Allergy status to other drugs, medicaments and biological substances
CPT/HCPCS: 93005; 87040 ×2; 85025; 80048; 36415; 83735; 85379; 83605 ×2; 84484; 83880; 87804 ×2; 71275; 71045; 82805; U0003; Q9967; J7613; J7050; J7040; J0696

== ENCOUNTER 2022-06-11 10:18 | Inpatient (IN) | payer OTHER ==
--- OUTSIDE RECORDS SUMMARY | 2022-06-11 10:24 | XMS REPORT | Continuity of Care Document ---
:1950 Author Organization [facility] Address [address] [place] [address] [address] [place] [address] Care Team Providers Name Role Phone No, Pcp [facility] Primary Care Physician Unavailable Uri Maldonado Attending Clinician Unavailable NIKOLAS REEVES Attending Clinician Unavailable LAURA SHAH Attending Clinician Unavailable Laura Shah MD Attending Clinician Nikolas Reeves MD Attending Clinician [phone] LAURA SHAH Admitting Clinician Unavailable Payers Payer Name Policy Type Policy Number Effective Date Expiration Date S ource UNITED MEDICARE [id number] 2022 HMO 00:00:00 [place] [id number] Common [facility] Problems Condition Condition Condition Status Onset Resolution Last Treating Co mments Source Name Details Category Date Date Treatment Clinician Date Pneumonia Pneumonia Disease Active [facility] 06[facility]05 [facility] 00:00: Medical 00 Center [id number] COPD with Problem Com mon exacerbati Spirit on [facility] Urine Urinary Problem Common incontinen incontinen Sp eliza ce ce, - [facility]I unspecifie [facility] Chronic Chronic Problem Common back pain back pain Spir it [facility] 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, - [facility] [id number] Chronic Problem Common neutrophil Spirit ia - [facility] Hyperglyce Hyperglyce Problem C tarik louis heriberto Spirit - [facility] Benign Benign Problem Common essential essential Spir it hypertensi hypertensi - CHI on on [facility] Migraine Migraine, Problem Comm on unspecifie Spirit d, not - [facility] intractabl e, without [facility] status Medical migrainosu Center s 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 - [facility] Osteoarthr OA Problem Commo n itis (osteoarth Spirit ritis) - [facility] Tobacco Tobacco Problem Common use use Spirit disorder - [facility] Depression Depression Problem C [facility] History of H/O: CVA Problem Com mon cerebrovas (cerebrova Sp eliza cular scular - [facility] accident accident) [facility] residual Medical deficits Center [id number] Controlled Problem Co mmon type 2 Spirit diabetes - CHI mellitus [facility] complicati Medica l on, [place] unspecifie d whether mcc insulin use [id number] Thrombocyt Problem Comm on osis Spirit [facility] [id number] Elevated Problem Com mon [id number] C-reactive [facility] protein - [facility] (CRP) [facility] Benign BPH Problem Common prostatic (benign Spirit hyperplasi prostatic - C HI a hyperplasi [facility] Prediabete Prediabete Problem C tarik s s Spirit - CH[facility] Sciatica Sciatica Problem Commo n Spirit [facility] Mixed Hyperlipid Problem Commo n hyperlipid emia, Spirit emia mixed - [facility] [id number] Hypercalce Problem Com mon heriberto Spirit [facility] [id number] Noncomplia Problem Co mmon nce with Spirit dietary - [facility]I restrictio [facility] [id number] Type 2 Problem Common diabetes Spirit mellitus - [facility]I with St hyperglyce [facility] without Center long-term current use of insulin Diabetes Diabetes Disease Recurre [facility] mellitus mellitus [facility] COPD COPD Disease Recurre [facility] St (chronic (chronic [facility] obstructiv obstructiv Me dical e e Center pulmonary pulmonary disease) disease) Hypertensi Hypertensi Disease Active C [facility] on [facility] Allergies, Adverse Reactions, Alerts Allergy Allergy Status Severity Reaction(s) Onset Inactive Treating Comm ents Source Name Type Date Date Clinician IPRATROP Allergy Active [facility]: Medical 00 Center Ipratrop Propensi Active [facility] [place] adverse 00:00: Medical reaction 00 Center s Social History Social Habit Start Date Stop Date Quantity Comments Source History [facility] Non-Med Medical Center History of tobacco Smokes tobacco [facility] use daily Medical Center History [facility] 2022-06-05 2022-06-[address] [facility] Transport Med 00:00:00 00:00:[address] History [facility] 2022-06-05 2022-06-[address] [facility] Housing Unable to 00:00:00 00:00:00 Medical Center Pay History [facility] 2022-06-05 2022-06-[address] [facility] Housing Places 00:00:00 00:00:00 Medical Ce nter Lived History [facility] 2022-06-05 2022-06-[address] [facility] Homeless 00:00:00 00:00:00 Medical Center Last Year Cigarettes smoked 2022-06-05 2022-06-[address] [facility] current (pack per 00:00:00 00:00:00 Medical Center day) - Reported Tobacco use and 2022-06-05 2022-06-05 User of smokeless [facility] exposure 00:00:00 00:00:00 tobacco Medical Center Sex Ass[birth year] At 1950 [address] [facility] [address] Leandra kes 00:00:00 00:00:00 Medical Center Smoking Status Start Date Stop Date Source Smokes tobacco daily 2022-06-05 00:00:00 [facility] Medications Ordered Filled Start Stop Current Ordering Indication Dosage Frequency Signature Comments Components Source Medication Medication Date Date Medication? Clinician (SIG) Name Name lisinopriL Yes 10mg QD Take 1 CHI S t (PRINIVIL,Z 5-01 tablet (10 Leandra kes ESTRIL) 10 00:00: mg total) Me dical MG tablet 00 by mouth Center in the morning. triamterene Yes 1{capsu QD Take [address] -hydroCHLOR 4-30 le} capsule by Leandra quinones Othiazide 16:51: mouth Medical (DYAZIDE) 40 every Center 37.5-25 mg morning. per capsule simvastatin 0 Yes 80mg QD Take [address] (ZOCOR) 80 4-30 tablet (80 Case es MG tablet 16:51: mg total) Med ical 40 by mouth Center nightly. benzonatate 0 Yes 100mg Take [address] (TESSALON) 4-30 capsule [facility] 100 MG 16:51: (100 mg Medical capsule 40 total) by Center mouth 3 (three) times daily as needed for Cough. HYDROcodone Yes pain 1{tbl} Q.5D Take [address] -acetaminop 4-30 tablet by Case saenz hen (NORCO 16:51: mouth in Med ical 7.5-325) 40 the Center 7.5-325 mg morning per tablet and 1 tablet before bedtime. Max Daily Amount: 2 tablets. sertraline Yes 50mg Take 1 CHI S t (ZOLOFT) 50 4-30 tablet (50 Leandra kes MG tablet 16:51: mg total) Med ical 40 by mouth. Center lisinopriL 2022- No 5mg QD Take [address] (PRINIVIL,Z 4-30 04-30 tablet (5 Leandra kes ESTRIL) 5 12:25: 00:00 mg total) Me dical MG tablet 26 :00 by mouth Center in the morning. predniSONE 2022- No 20mg Q.5D Take [address] (DELTASONE) 4-30 04-30 tablet (20 L ukes 20 MG 12:25: 00:00 mg total) Medica l tablet 26 :00 by mouth Center in the morning and 1 tablet (20 mg total) before bedtime. dextrometho 0 2022- Yes 1{tbl} Q.5D Take [address] rphan-guaif 4-30 05-10 tablet by Leandra quinones enesin 00:00: 23:59 mouth in Medica l (MuciNEX 00 :00 the Center DM) 30-600 morning mg per 12 and 1 hr tablet tablet before bedtime. Do all this for 10 days. . predniSONE 2022-0 2023- Yes Take [address] (DELTASONE) 06-07 05-09 tablets Luke s 10 MG 00:00: 23:59 (40 mg Medical tablet 00 :00 total) by Center mouth daily for 3 days, THEN 2 tablets (20 mg total) daily for 3 days, THEN 1 tablet (10 mg total) daily for 3 days. . levoFLOXaci 2022-0 2022- No 750mg QD Take [address] n 06-07- tablet [facility] (LEVAQUIN) 00:00: 23:59 (750 mg Med ical 750 MG 00 :00 total) by Center tablet mouth in the morning for 3 days. metFORMIN 2022-2022- No type 2 1000mg Take [address] (GLUCOPHAGE 06-05 diabetes tablet L ukes ) 1000 MG 05:23: 00:00 mellitus (1,000 mg Medical tablet 29 :00 total) by Center mouth 2 (two) times daily with breakfast and dinner. pregabalin 2022- No 75mg [address] (LYRICA) 75 06-05 (75 mg [facility] MG capsule 04:44: 00:00 total). Med ical 45 :00 Center nicotine 2022-0 Yes 1{patch QD [address] (NICODERM 4-24 } the [facility] CQ) 14 00:00: morning. Medical mg/24 hr 00 Center patch pregabalin 2022-0 Yes 25mg Q.5D Take 1 CHI S t (LYRICA) 25 -03 capsule [facility] MG capsule 00:00: (25 mg Medic al 00 total) by Center mouth in the morning and 1 capsule (25 mg total) before bedtime. Max Daily Amount: 50 mg. Trintellix 2022-0 Yes 10mg QD Take 1 CHI S t 10 mg 3-22 tablet (10 [facility] tablet 00:00: mg total) Medica l 00 by mouth Center in the morning. Trintellix Trintellix 2021-0 No 1{table QD Trintellix 10 MG 10 MG 9-27 t} 10 MG 00:00: 00 Trintellix Trintellix 2021-0 No 1{table QD Trintellix 10 MG 10 MG 9-27 t} 10 MG 00:00: 00 Pregabalin Pregabalin 2022-0 No 1{capsu BID Pregabalin 75 MG 75 MG 03 le} 75 MG 00:00: 00 Pregabalin Pregabalin No 1{capsu BID Pregabalin 75 MG 75 MG 03 le} 75 MG 00:00: 00 Pregabalin Pregabalin No 1{capsu BID Pregabalin 75 MG 75 MG 02-10 le} 75 MG 00:00: 00 Pregabalin Pregabalin No 1{capsu BID Pregabalin 75 MG 75 MG 02-10 le} 75 MG 00:00: 00 Bactrim DS Bactrim DS 2019- No Kaylee 1 tablet Common 9-17 09-20 [place] [facility] 00:00: 00:00 - CHI 00 :00 [facility] Tamsulosin Tamsulosin 2020- No Kaylee 1 capsule Common HCl HCl 8-18 -13 [place] [facility] 00:00: 00:00 - CHI 00 :00 [facility] Flonase Flonase Yes Kaylee 1 spray in Co mmon Chen each Spirit nostril - CHI [facility] Metformin Metformin Yes Kaylee TAKE 1 Co mmon HCl HCl [place] TABLET BY Spirit MOUTH - CHI TWICE A St DAY WITH [facility] Triamterene Triamterene Yes Kaylee 1 tablet Common -HCTZ -HCTZ [place] in the Spirit morning - CHI [facility] Zoloft Zoloft Yes Kaylee 2 tablets Commo n [place] [facility] - [facility] Trelegy Trelegy Yes Kaylee INHALE 1 Comm on Ellipta Ellipta Chen PUFF BY Sp eliza MOUTH - CHI EVERY DAY [facility] PredniSONE PredniSONE Yes Kaylee 1 tablet Common [place] [facility] - [facility] Sertraline Sertraline Yes Kaylee TAKE 2 Common HCl HCl [place] TABLETS Spirit ONCE DAILY - CHI [facility] Simvastatin Simvastatin Yes Kaylee TAKE 1 Common Chen TABLET BY Spirit MOUTH - CHI EVERY DAY St IN THE [facility] Januvia Januvia Yes Kaylee TAKE 1 Common [place] TABLET Spirit ONCE DAILY - CHI [facility] Albuterol Albuterol Yes Kaylee 2 puffs as Common Sulfate HFA Sulfate HFA [place] needed Spirit [facility] Pregabalin Pregabalin Yes Kaylee 1 capsule Common [place] 1 to 3 Spirit hours - CHI before St bedtime in [facility] [place] Yes Kaylee 1 tablet Common Chen as needed [facility] Lisinopril Lisinopril Yes Kaylee 1 tablet Common [place] [facility] Simvastatin Simvastatin Yes Kaylee 1 tablet Common Chen in the Spirit evening - CHI [facility] Baclofen Baclofen Yes Kaylee not Common [place] defined [facility] metFORMIN metFORMIN No metFORMIN HCl 1000 MG HCl 1000 MG HCl 1000 MG [place] No 1{table QID [place] 10-325 MG 10-325 MG t_as_ne 10-325 MG [...] MCG/ACT MCG/ACT MCG/ACT Baclofen Baclofen No Baclofen [place] No 1{table QID [place] 10-325 MG 10-325 MG t_as_ne 10-325 MG [...] MCG/ACT MCG/ACT MCG/ACT Baclofen Baclofen No Baclofen [place] No 1{table QID [place] 10-325 MG 10-325 MG t_as_ne 10-325 MG eded} Simvastatin Simvastatin No Simvastati 80 MG 80 MG n 80 MG predniSONE predniSONE No 1{table predniSONE 2.5 MG 2.5 MG t} 2.5 MG Simvastatin Simvastatin No 1{table QD Simvastati 80 MG 80 MG t_in_th n 80 MG e_eveni ng} [place] No 1{table QID [place] 10-325 MG 10-325 MG t_as_ne 10-325 MG [...] Pregabalin 150 MG 150 MG 150 MG [place] No 1{table QID [place] 10-325 MG 10-325 MG t_as_ne 10-325 MG [...] HCl 0.4 MG le} HCl 0.4 MG [place] No 1{table QID [place] 10-325 MG 10-325 MG t_as_ne 10-325 MG [...] Nebulizer Nebulizer No Nebulizer Compressor Compressor Compressor [place] No 1{table QID [place] 10-325 MG 10-325 MG t_as_ne 10-325 MG [...] Nebulizer Nebulizer No Nebulizer Compressor Compressor Compressor [place] No 1{table QID [place] 10-325 MG 10-325 MG t_as_ne 10-325 MG [...] 100-62.5-25 100-62.5-25 100-62.5-2 MCG/INH MCG/INH 5 MCG/INH [place] No 1{table QID [place] 10-325 MG 10-325 MG t_as_ne 10-325 MG [...] 75 MG 75 MG le} 75 MG [place] No 1{table QID [place] 10-325 MG 10-325 MG t_as_ne 10-325 MG [...] 75 MG 75 MG le} 75 MG [place] No 1{table QID [place] 10-325 MG 10-325 MG t_as_ne 10-325 MG [...] 75 MG 75 MG le} 75 MG [place] No 1{table QID [place] 10-325 MG 10-325 MG t_as_ne 10-325 MG [...] 75 MG 75 MG le} 75 MG [place] No 1{table QID [place] 10-325 MG 10-325 MG t_as_ne 10-325 MG eded} metFORMIN metFORMIN No metFORMIN HCl 1000 MG HCl 1000 MG HCl 1000 MG metFORMIN metFORMIN No metFORMIN HCl 1000 MG HCl 1000 MG HCl 1000 MG [place] No 1{table QID [place] 10-325 MG 10-325 MG t_as_ne 10-325 MG [...] n 500 MG t} in 500 MG [place] No 1{table QID [place] 10-325 MG 10-325 MG t_as_ne 10-325 MG eded} Simvastatin Simvastatin No 1{table QD Simvastati 80 MG 80 MG t_in_ n 80 MG e_eveni ng} Pregabalin Pregabalin [...] MG HCl 1000 MG HCl 1000 MG [place] No 1{table QID [place] 10-325 MG 10-325 MG t_as_ne 10-325 MG [...] Base) Base) (90 Base) MCG/ACT MCG/ACT MCG/ACT [place] No 1{table QID [place] 10-325 MG 10-325 MG t_as_ne 10-325 MG [...] 20 MG 20 MG t} 20 MG [place] No 1{table QID [place] 10-325 MG 10-325 MG t_as_ne 10-325 MG [...] 75 MG 75 MG le} 75 MG [place] No 1{table QID [place] 10-325 MG 10-325 MG t_as_ne 10-325 MG eded} metFORMIN metFORMIN No metFORMIN HCl 1000 MG HCl 1000 MG HCl 1000 MG Immunizations Ordered Immunization Filled Immunization Date Status Commen ts Source Name Name FLUZONE HIGH DOSE FLUZONE HIGH DOSE 2021-12-03 Completed [facility] OVER 65 OVER 65 10:08:00 - [facility] FLUZONE HIGH DOSE FLUZONE HIGH DOSE 2021-12-03 Completed [facility] OVER 65 OVER 65 10:08:00 - [facility] FLUZONE HIGH DOSE FLUZONE HIGH DOSE 2021-12-03 Completed [facility] OVER 65 OVER 65 10:08:00 - [facility] FLUZONE HIGH DOSE FLUZONE HIGH DOSE 2021-12-03 Completed [facility] OVER 65 OVER 65 10:08:00 - [facility] FLUZONE HIGH DOSE FLUZONE HIGH DOSE 2020-11-14 Completed [facility] OVER 65 OVER 65 10:39:00 - [facility] FLUZONE HIGH DOSE FLUZONE HIGH DOSE 2020-11-14 Completed [facility] OVER 65 OVER 65 10:39:00 - [facility] FLUZONE HIGH DOSE FLUZONE HIGH DOSE 2020-11-14 Completed [facility] OVER 65 OVER 65 10:39:00 - [facility] FLUZONE HIGH DOSE FLUZONE HIGH DOSE 2020-11-14 Completed [facility] OVER 65 OVER 65 10:39:00 - [facility] FLUZONE HIGH DOSE FLUZONE HIGH DOSE 2020-11-14 Completed [facility] OVER 65 OVER 65 10:39:00 - [facility] FLUZONE HIGH DOSE FLUZONE HIGH DOSE 2020-11-14 Completed [facility] OVER 65 OVER 65 10:39:00 - [facility] FLUZONE HIGH DOSE FLUZONE HIGH DOSE 2020-11-14 Completed [facility] OVER 65 OVER 65 10:39:00 - [facility] FLUZONE HIGH DOSE FLUZONE HIGH DOSE 2020-11-14 Completed [facility] OVER 65 OVER 65 10:39:00 - [facility] FLUZONE HIGH DOSE FLUZONE HIGH DOSE 2020-11-14 Completed [facility] OVER 65 OVER 65 10:39:00 - [facility] FLUZONE HIGH DOSE FLUZONE HIGH DOSE 2020-11-14 Completed [facility] OVER 65 OVER 65 10:39:00 - [facility] FLUZONE HIGH DOSE FLUZONE HIGH DOSE 2020-11-14 Completed [facility] OVER 65 OVER 65 10:39:00 - [facility] FLUZONE HIGH DOSE FLUZONE HIGH DOSE 2020-11-14 Completed [facility] OVER 65 OVER 65 10:39:00 - [facility] FLUZONE HIGH DOSE FLUZONE HIGH DOSE 2020-11-14 Completed [facility] OVER 65 OVER 65 10:39:00 - [facility] FLUZONE HIGH DOSE FLUZONE HIGH DOSE 2020-11-14 Completed [facility] OVER 65 OVER 65 10:39:00 - [facility] FLUZONE HIGH DOSE FLUZONE HIGH DOSE 2020-11-14 Completed [facility] OVER 65 OVER 65 10:39:00 - [facility] FLUZONE HIGH DOSE FLUZONE HIGH DOSE 2020-11-14 Completed [facility] OVER 65 OVER 65 10:39:00 - [facility] FLUZONE HIGH DOSE FLUZONE HIGH DOSE 2020-11-14 Completed [facility] OVER 65 OVER 65 10:39:00 - [facility] FLUZONE HIGH DOSE FLUZONE HIGH DOSE 2020-11-14 Completed [facility] OVER 65 OVER 65 10:39:00 - [facility] FLUZONE HIGH DOSE FLUZONE HIGH DOSE 2020-11-14 Completed [facility] OVER 65 OVER 65 10:39:00 - [facility] Moderna COVID-19 Moderna COVID-19 2020-05-09 Completed Co mmon [facility] Vaccine Vaccine 13:48:00 - [facility] Moderna COVID-19 Moderna COVID-19 2020-05-09 Completed Co mmon [facility] Vaccine Vaccine 13:48:00 - [facility] Moderna COVID-19 Moderna COVID-19 2020-05-09 Completed Co mmon [facility] Vaccine Vaccine 13:48:00 - [facility] Moderna COVID-19 Moderna COVID-19 2020-05-09 Completed Co mmon [facility] Vaccine Vaccine 13:48:00 - [facility] Moderna COVID-19 Moderna COVID-19 2020-05-09 Completed Co mmon [facility] Vaccine Vaccine 13:48:00 - [facility] Moderna COVID-19 Moderna COVID-19 2020-05-09 Completed Co mmon [facility] Vaccine Vaccine 13:48:00 - [facility] Moderna COVID-19 Moderna COVID-19 2020-05-09 Completed Co mmon [facility] Vaccine Vaccine 13:48:00 - [facility] Moderna COVID-19 Moderna COVID-19 2020-05-09 Completed Co mmon [facility] Vaccine Vaccine 13:48:00 - [facility] Moderna COVID-19 Moderna COVID-19 2020-05-09 Completed Co mmon [facility] Vaccine Vaccine 13:48:00 - [facility] Moderna COVID-19 Moderna COVID-19 2020-05-09 Completed Co mmon [facility] Vaccine Vaccine 13:48:00 - [facility] Moderna COVID-19 Moderna COVID-19 2020-05-09 Completed Co mmon [facility] Vaccine Vaccine 13:48:00 - [facility] Moderna COVID-19 Moderna COVID-19 2020-05-09 Completed Co mmon [facility] Vaccine Vaccine 13:48:00 - [facility] Moderna COVID-19 Moderna COVID-19 2020-05-09 Completed Co mmon [facility] Vaccine Vaccine 13:48:00 - [facility] Moderna COVID-19 Moderna COVID-19 2020-05-09 Completed Co mmon [facility] Vaccine Vaccine 13:48:00 - [facility] Moderna COVID-19 Moderna COVID-19 2020-05-09 Completed Co mmon [facility] Vaccine Vaccine 13:48:00 - [facility] Moderna COVID-19 Moderna COVID-19 2020-05-09 Completed Co mmon [facility] Vaccine Vaccine 13:48:00 - [facility] Moderna COVID-19 Moderna COVID-19 2020-05-09 Completed Co mmon [facility] Vaccine Vaccine 13:48:00 - [facility] Moderna COVID-19 Moderna COVID-19 2020-05-09 Completed Co mmon [facility] Vaccine Vaccine 13:48:00 - [facility] Moderna COVID-19 Moderna COVID-19 2020-04-08 Completed Co mmon [facility] Vaccine Vaccine 13:48:00 - [facility] Moderna COVID-19 Moderna COVID-19 2020-04-08 Completed Co mmon [facility] Vaccine Vaccine 13:48:00 - [facility] Moderna COVID-19 Moderna COVID-19 2020-04-08 Completed Co m[facility] Vaccine Vaccine 13:48:00 - [facility] Moderna COVID-19 Moderna COVID-19 2020-04-08 Completed Co m[facility] Vaccine Vaccine 13:48:00 - [facility] Moderna COVID-19 Moderna COVID-19 2020-04-08 Completed Co m[facility] Vaccine Vaccine 13:48:00 - [facility] Moderna COVID-19 Moderna COVID-19 2020-04-08 Completed Co m[facility] Vaccine Vaccine 13:48:00 - [facility] Moderna COVID-19 Moderna COVID-19 2020-04-08 Completed Co m[facility] Vaccine Vaccine 13:48:00 - [facility] Moderna COVID-19 Moderna COVID-19 2020-04-08 Completed Co m[facility] Vaccine Vaccine 13:48:00 - [facility] Moderna COVID-19 Moderna COVID-19 2020-04-08 Completed Co m[facility] Vaccine Vaccine 13:48:00 - [facility] Moderna COVID-19 Moderna COVID-19 2020-04-08 Completed Co m[facility] Vaccine Vaccine 13:48:00 - [facility] Moderna COVID-19 Moderna COVID-19 2020-04-08 Completed Co m[facility] Vaccine Vaccine 13:48:00 - [facility] Moderna COVID-19 Moderna COVID-19 2020-04-08 Completed Co m[facility] Vaccine Vaccine 13:48:00 - [facility] Moderna COVID-19 Moderna COVID-19 2020-04-08 Completed [facility] m[facility] Vaccine Vaccine 13:48:00 - [facility] Moderna COVID-19 Moderna COVID-19 2020-04-08 Completed [facility] Vaccine Vaccine 13:48:00 - [facility] Moderna COVID-19 Moderna COVID-19 2020-04-08 Completed [facility] Vaccine Vaccine 13:48:00 - [facility] Moderna COVID-19 Moderna COVID-19 2020-04-08 Completed [facility] Vaccine Vaccine 13:48:00 - [facility] Moderna COVID-19 Moderna COVID-19 2020-04-08 Completed [facility] Vaccine Vaccine 13:48:00 - [facility] Moderna COVID-19 Moderna COVID-19 2020-04-08 Completed [facility] Vaccine Vaccine 13:48:00 - [facility] FluAD FluAD 2020-01-17 Completed [facility] 11:24:00 - [facility] FluAD FluAD 2020-01-17 Completed [facility] 11:24:00 - [facility] FluAD FluAD 2020-01-17 Completed [facility] 11:24:00 - [facility] FluAD FluAD 2020-01-17 Completed [facility] 11:24:00 - [facility] FluAD FluAD 2020-01-17 Completed [facility] 11:24:00 - [facility] FluAD FluAD 2020-01-17 Completed [facility] 11:24:00 - [facility] FluAD FluAD 2020-01-17 Completed [facility] 11:24:00 - [facility] FluAD FluAD 2020-01-17 Completed [facility] 11:24:00 - [facility] FluAD FluAD 2020-01-17 Completed [facility] 11:24:00 - [facility] FluAD FluAD 2020-01-17 Completed [facility] 11:24:00 - [facility] FluAD FluAD 2020-01-17 Completed [facility] 11:24:00 - [facility] FluAD FluAD 2020-01-17 Completed [facility] 11:24:00 - [facility] FluAD FluAD 2020-01-17 Completed [facility] 11:24:00 - [facility] FluAD FluAD 2020-01-17 Completed [facility] 11:24:00 - [facility] FluAD FluAD 2020-01-17 Completed [facility] 11:24:00 - [facility] FluAD FluAD 2020-01-17 Completed [facility] 11:24:00 - [facility] FluAD FluAD 2020-01-17 Completed [facility] 11:24:00 - [facility] FluAD FluAD 2020-01-17 Completed [facility] 11:24:00 - [facility] FluAD FluAD 2020-01-17 Completed [facility] 11:24:00 - [facility] Pneumovax (PPSV23) Pneumovax (PPSV23) 2017-11-08 Completed [facility] 13:48:00 - [facility] Pneumovax (PPSV23) Pneumovax (PPSV23) 2017-11-08 Completed [facility] 13:48:00 - [facility] Pneumovax (PPSV23) Pneumovax (PPSV23) 2017-11-08 Completed [facility] 13:48:00 - [facility] Pneumovax (PPSV23) Pneumovax (PPSV23) 2017-11-08 Completed [facility] 13:48:00 [facility] Pneumovax (PPSV23) Pneumovax (PPSV23) 2017-11-08 Completed [facility] 13:48:00 [facility] Pneumovax (PPSV23) Pneumovax (PPSV23) 2017-11-08 Completed [facility] 13:48:00 [facility] Pneumovax (PPSV23) Pneumovax (PPSV23) 2017-11-08 Completed [facility] 13:48:00 - [facility] Pneumovax (PPSV23) Pneumovax (PPSV23) 2017-11-08 Completed [facility] 13:48:00 [facility] Pneumovax (PPSV23) Pneumovax (PPSV23) 2017-11-08 Completed [facility] 13:48:00 [facility] Pneumovax (PPSV23) Pneumovax (PPSV23) 2017-11-08 Completed [facility] 13:48:00 [facility] Pneumovax (PPSV23) Pneumovax (PPSV23) 2017-11-08 Completed [facility] 13:48:00 [facility] Pneumovax (PPSV23) Pneumovax (PPSV23) 2017-11-08 Completed [facility] 13:48:00 [facility] Pneumovax (PPSV23) Pneumovax (PPSV23) 2017-11-08 Completed [facility] 13:48:00 - [facility] Pneumovax (PPSV23) Pneumovax (PPSV23) 2017-11-08 [facility]pleted [facility] 13:48:00 - [facility] Pneumovax (PPSV23) Pneumovax (PPSV23) 2017-11-08 Completed [facility] 13:48:00 [facility] Pneumovax (PPSV23) Pneumovax (PPSV23) 2017-11-08 Completed [facility] 13:48:00 [facility] Pneumovax (PPSV23) Pneumovax (PPSV23) 2017-11-08 Completed [facility] 13:48:00 [facility] Pneumovax (PPSV23) Pneumovax (PPSV23) 2017-11-08 Completed [facility] 13:48:00 [facility] Vital Signs Vital Name Observation Time Observation Value Comments Source height 2022-03-05 10:10:00 66.5 [in_i] [facility] weight 2022-03-05 10:10:00 158 [lb_av] [facility] temperature 2022-03-05 10:10:00 97.6 [degF] [facility] bmi 2022-03-05 10:10:00 25.12 kg/m2 [facility] oximetry 2022-03-05 10:10:00 95 % [facility] respiratory rate 2022-03-05 10:10:00 16 /min Comm on [facility] blood pressure 2022-03-05 10:10:00 118 mm[Hg] Common [facility] - systolic [facility] blood pressure 2022-03-05 10:10:00 70 mm[Hg] [facility] - diastolic [facility] height 2021-12-03 09:50:00 66.5 [in_i] [facility] weight 2021-12-03 09:50:00 156.0 [lb_av] [facility] temperature 2021-12-03 09:50:00 97.2 [degF] [facility] bmi 2021-12-03 09:50:00 24.8 kg/m2 [facility] oximetry 2021-12-03 09:50:00 98 % [facility] respiratory rate 2021-12-03 09:50:00 18 /min Comm on [facility] blood pressure 2021-12-03 09:50:00 129 mm[Hg] Common [facility] - systolic [facility] blood pressure 2021-12-03 09:50:00 59 mm[Hg] [facility] - diastolic [facility] height 2021-11-04 13:00:00 66.5 [in_i] [facility] weight 2021-11-04 13:00:00 156.3 [lb_av] [facility] temperature 2021-11-04 13:00:00 97.9 [degF] [facility] bmi 2021-11-04 13:00:00 24.85 kg/m2 [facility] oximetry 2021-11-04 13:00:00 96 % [facility] respiratory rate 2021-11-04 13:00:00 17 /min Comm on [facility] blood pressure 2021-11-04 13:00:00 132 mm[Hg] [facility] - systolic [facility] blood pressure 2021-11-04 13:00:00 67 mm[Hg] [facility] - diastolic [facility] height 2021-09-04 13:30:00 66.5 [in_i] [facility] weight 2021-09-04 13:30:00 156 [lb_av] [facility] temperature 2021-09-04 13:30:00 97.6 [degF] [facility] bmi 2021-09-04 13:30:00 24.8 kg/m2 [facility] oximetry 2021-09-04 13:30:00 96 % [facility] respiratory rate 2021-09-04 13:30:00 16 /min Comm on [facility] blood pressure 2021-09-04 13:30:00 135 mm[Hg] [facility] - systolic [facility] blood pressure 2021-09-04 13:30:00 63 mm[Hg] Common [facility] diastolic [facility] height 2021-09-04 14:00:00 66.5 [in_i] [facility] weight 2021-09-04 14:00:00 156 [lb_av] [facility] temperature 2021-09-04 14:00:00 97.6 [degF] [facility] bmi 2021-09-04 14:00:00 24.8 kg/m2 [facility] oximetry 2021-09-04 14:00:00 96 % [facility] respiratory rate 2021-09-04 14:00:00 16 /min Comm on [facility] blood pressure 2021-09-04 14:00:00 135 mm[Hg] [facility] - systolic [facility] blood pressure 2021-09-04 14:00:00 63 mm[Hg] [facility] - [facility] height 2021-05-27 11:40:00 68 [in_i] [facility] weight 2021-05-27 11:40:00 172 [lb_av] [facility] bmi 2021-05-27 11:40:00 26.15 kg/m2 [facility] height 2021-02-10 09:30:00 68 [in_i] [facility] weight 2021-02-10 09:30:00 172.7 [lb_av] [facility] temperature 2021-02-10 09:30:00 97.3 [degF] [facility] bmi 2021-02-10 09:30:00 26.26 kg/m2 [facility] S [facility] oximetry 2021-02-10 09:30:00 99 % [facility] respiratory rate 2021-02-10 09:30:00 17 /min Comm on [facility] blood pressure 2021-02-10 09:30:00 138 mm[Hg] [facility] - systolic [facility] blood pressure 2021-02-10 09:30:00 72 mm[Hg] [facility] - diastolic [facility] height 2021 09:00:00 68 [in_i] Common S [facility] weight 2021 09:00:00 169.3 [lb_av] [facility] temperature 2021 09:00:00 97.9 [degF] [facility] bmi 2021 09:00:00 25.74 kg/m2 [facility] oximetry 2021 09:00:00 96 % [facility] respiratory rate 2021 09:00:00 16 /min Comm on [facility] blood pressure 2021 09:00:00 132 mm[Hg] [facility] - systolic [facility] blood pressure 2021 09:00:00 65 mm[Hg] [facility] - diastolic [facility] height 2020-11-14 09:00:00 68 [in_i] [facility] weight 2020-11-14 09:00:00 168.6 [lb_av] Common [facility] temperature 2020-11-14 09:00:00 96.7 [degF] [facility] bmi 2020-11-14 09:00:00 25.63 kg/m2 [facility] S [facility] oximetry 2020-11-14 09:00:00 91 % [facility] blood pressure 2020-11-14 09:00:00 120 mm[Hg] [facility] - [facility] blood pressure 2020-11-14 09:00:00 60 mm[Hg] [facility] - diastolic [facility] height 2020-11-14 09:00:00 68 [in_i] [facility] weight 2020-11-14 09:00:00 168.6 [lb_av] Common [facility] temperature 2020-11-14 09:00:00 96.7 [degF] [facility] bmi 2020-11-14 09:00:00 25.63 kg/m2 [facility] S [facility] oximetry 2020-11-14 09:00:00 91 % [facility] S [facility] respiratory rate 2020-11-14 09:00:00 16 /min Comm on [facility] blood pressure 2020-11-14 09:00:00 120 mm[Hg] [facility] - systolic [facility] blood pressure 2020-11-14 09:00:00 60 mm[Hg] [facility] - diastolic [facility] Heart rate 2022-06-07 13:55:00 78 /min [facility] Respiratory rate 2022-06-07 13:55:00 20 /min [facility] Oxygen saturation in 2022-06-07 13:55:00 98 /min [facility] Arterial blood by Medical Ce nter Pulse oximetry Systolic blood 2022-06-07 12:00:00 163 mm[Hg] [facility] Diastolic blood 2022-06-07 12:00:00 70 mm[Hg] [facility] Body temperature 2022-06-07 12:00:00 36.5 Lala [facility] Procedures Procedure Date / Time Performed Performing Clinician Sour e POCT-GLUCOSE METER 2022-06-07 11:07:[address] [facility] POCT-GLUCOSE METER 2022-06-07 06:18:[address] [facility] CBC W/PLT COUNT & AUTO 2022-06-07 05:29:00 Nikolas Reeves [facility] BASIC METABOLIC PANEL 2022-06-07 05:29:00 Lala [facility] CBC W/PLT COUNT & AUTO 2022-06-07 05:29:00 Nikolas Reeves [facility] XR CHEST 1 VIEW PORTABLE 2022-06-07 04:35:[address] [facility] / BEDSIDE [facility] POCT-GLUCOSE METER 2022-06-06 22:01:[address] [facility] POCT-GLUCOSE METER 2022-06-06 15:04:00 Lala [facility] PROCALCITONIN 2022-06-06 12:37:00 Lala [facility] POCT-GLUCOSE METER 2022-06-06 11:55:[address] [facility] POCT-GLUCOSE METER 2022-06-06 06:31:[address] [facility] CBC W/PLT COUNT & AUTO 2022-06-06 05:07:00 Lala Nikolas [facility] Jazz madera [facility] DIFFERENTIAL [facility] BASIC METABOLIC PANEL 2022-06-06 05:07:00 Yue[facility] D-DIMER 2022-06-06 05:07:00 [facility] C-REACTIVE PROTEIN 2022-06-06 05:07:00 Yueca [facility] CBC W/PLT COUNT & AUTO 2022-06-06 05:07:00 Nikolas Reeves [facility] Jazz [facility] DIFFERENTIAL [facility] SODIUM, RANDOM URINE 2022-06-05 21:33:[address] [facility] POCT-GLUCOSE METER 2022-06-05 20:11:00 Lala [facility] D-DIMER 2022-06-05 17:25:00 Leobardo Terrazas [facility] SODIUM 2022-06-05 17:25:00 Leti Sanchez [facility] POCT-GLUCOSE METER 2022-06-05 16:17:00 Lala [facility] ECG 12-LEAD 2022-06-05 08:33:21 Unknown, Hl7 [facility] ECG 12-LEAD 2022-06-05 08:32:58 Unknown, Hl7 [facility] BLOOD CULTURE 2022-06-05 08:13:00 Stephanie Laura [facility] BLOOD CULTURE 2022-06-05 08:12:00 Stephanie [facility] C-REACTIVE PROTEIN 2022-06-05 08:08:00 Stephanie [facility] POCT-GLUCOSE METER 2022-06-05 06:50:00 Stephanie Laura [facility] BLOOD GAS, ARTERIAL 2022-06-05 04:57:00 Laura Shah I [facility] STREP PNEUMONIAE ANTIGEN 2022-06-05 04:24:00 Laura Shah ru [facility] OSMOLALITY, URINE 2022-06-05 04:24:00 [facility] SODIUM, RANDOM URINE 2022-06-05 04:24:00 Laura Shahvinita Rossi [facility] COMPREHENSIVE METABOLIC 2022-06-05 04:21:00 Laura Shahtoni u [facility] HEMOGLOBIN A1C 2022-06-05 04:21:00 Stephanie [facility] PROTHROMBIN TIME/INR 2022-06-05 04:21:00 Laura Shahvinita Rossi [facility] MAGNESIUM 2022-06-05 04:21:00 Stephanie [facility] PHOSPHORUS 2022-06-05 04:21:00 Stephanie [facility] CBC W/PLT COUNT & AUTO 2022-06-05 04:21:00 [facility] LIPID PANEL 2022-06-05 04:21:00 [facility] TROPONIN I 2022-06-05 04:21:00 [facility] CBC W/PLT COUNT & AUTO 2022-06-05 04:21:00 [facility] EKG-SCANNED 2022-06-05 00:00:00 Provider, Default [facility] Plan of Care Planned Activity Planned Date Details Comments Source Future Scheduled 2023-06-[address] [facility] Test 00:00:00 [facility] r Screening (12+) [code = Tobacco Cessation Counseling and Screening (12+)] Future Scheduled 2022-12-05 Hemoglobin A1c [facility] St Leandra kes Test 00:00:00 measurement (procedure) [facility] [code = 23590695] Future Scheduled 2022-02-[address] [facility] Test 00:00:00 (12+) [code = Medical Center DEPRESSION SCREENING (12+)] Future Scheduled 2022-02-08 FALLS RISK SCREENING [facility] Test 00:00:00 [code = FALLS RISK Medical C enter SCREENING] Future Scheduled 2022-02-08 Medicare IPPE (WELCOME [facility] 00:00:00 TO MEDICARE) [code = Medical Center Medicare IPPE (WELCOME TO MEDICARE)] Future Scheduled 2020-07-04 COVID-19 VACCINE (3 - [facility] 00:00[facility]00 Booster for [facility] series) [code = COVID-19 VACCINE (3 - Booster for Moderna series)] Future Scheduled 2013-01-[address] [facility] Test 00:00:00 aneurysm screening Medical C enter (procedure) [code = 086509277] Future Scheduled 1998-01-26 SHINGLES VACCINES ([address] [facility] Test 00:00:00 2) [code = SHINGLES Medical Center VACCINES (1 of 2)] Future Scheduled 1967-01-26 DTAP/TDAP/TD VACCINES [facility] 00:00:00 (1 - Tdap) [code = Medical C enter DTAP/TDAP/TD VACCINES (1 - Tdap)] Future Scheduled 1966-01-26 HEPATITIS C SCREENING [facility] 00:00:00 [code = HEPATITIS C Medical Center SCREENING] Future Scheduled 1958-01-26 DIABETIC EYE EXAM [code [facility] Test 00:00:00 = DIABETIC EYE EXAM] Medical Center Future Scheduled 1958-01-[address] [facility] Test 00:00:00 examination Medical Center (regime/therapy) [code = 894858257] Future Scheduled 1958-01-26 Urine screening for [facility] Test 00:00:00 protein (procedure) Medical Center [code = 694865729] Future Scheduled 1948 CT Colonography (combo) [facility] Test 00:00:00 [code = CT Colonography [facility] (combo)] Future Scheduled 1950 Screening for malignant [facility] Test 00:00:00 neoplasm of colon Medical Ce nter (procedure) [code = 134565571] Future Scheduled 1948 Screening for malignant [facility] Test 00:00:00 neoplasm of colon Medical Ce nter (procedure) [code = 786021432] Future Scheduled 1948 Screening for malignant [facility] Test 00:00:00 neoplasm of colon Medical Ce nter (procedure) [code = 598369789] Future Scheduled 1948 Screening for malignant [facility] Test 00:00:00 neoplasm of colon Medical Ce nter (procedure) [code = 446355851] Future Scheduled 1950 Sigmoidoscopy [code = [facility] 00:[facility]:00 Sigmoidoscopy] Medical Cente r Encounters Start End Encounter Admission Attending Care Care Encounter Source Date/Time Date/Time Type Type Clinicians Facility Department ID 2022-03-05 Outpatient Maldonado, STLMLC STLMLC [id number] Common 08:03:00 [place] [id number] [facility] 2021-12-01 Outpatient Maldonado, STLMLC STLMLC [id number] Common 10:32:00 Uri [id number] [facility] 2021-03-05 Outpatient Maldonado, STLMLC STLMLC [id number] Common 12:35:45 Uri [id number] [facility] 2021-03-05 Outpatient Maldonado, STLMLC STLMLC [id number] Common 12:12:17 Uri [id number] [facility] 2021-03-05 Outpatient Maldonado, STLMLC STLMLC [id number] Common 11:46:55 Uri [id number] [facility] 2021-03-05 Outpatient Maldonado, STLMLC STLMLC [id number] Common 11:25:09 Uri [id number] [facility] 2021-03-05 Outpatient Maldonado, STLMLC STLMLC [id number] Common 11:16:20 Uri [id number] [facility] 2021-03-05 Outpatient Maldonado, STLMLC STLMLC [id number] Common 11:07:31 Uri [id number] [facility] 2021-03-05 Outpatient Maldonado, STLMLC STLMLC [id number] Common 11:02:46 Uri [id number] [facility] 2022-06-05 2022-06-07 Inpatient ER LALA, [facility] [id number] [facility] 01:05:00 16:51:00 [facility] 2022-06-05 2022-06-07 [facility] Laura Shah [facility] [id number] 01:05:00 16:51:00 Encounter Nikolas Reeves [facility] 2022-06-05 2022-06-05 Orders [facility] [id number] 00:00:00 00:00:00 [facility] 2022-03-05 2022-03-05 OFFICE STLMLC STLMLC [id number] Co mmon 00:00:00 00:00:00 [facility]IT [facility] ESTAB PT - [facility] LEVEL 4 [facility] 2022-02-20 2022-02-20 (TEL) STLMLC STLMLC [id number] Co mmon 00:00:00 00:00:00 [facility] 2022-01-22 2022-01-22 (TEL) STLMLC STLMLC [id number] Co mmon 00:00:00 00:00:00 [facility] 2021-12-03 2021-12-03 OFFICE STLMLC STLMLC [id number] Co mmon 00:00:00 00:00:00 [facility] ESTAB PT - [facility] LEVEL 4 [facility] 2021-11-04 2021-11-04 OFFICE STLMLC STLMLC [id number] Co mmon 00:00:00 00:00:00 [facility] ESTAB PT - [facility] LEVEL 4 [facility] 2021-10-30 2021-10-30 (TEL) STLMLC STLMLC [id number] Co mmon 00:00:00 00:00:00 [facility] 2021-09-04 2021-09-04 (TEL) STLMLC STLMLC [id number] Co mmon 00:00:00 00:00:00 [facility] 2021-09-04 2021-09-04 OFFICE STLMLC STLMLC [id number] Co mmon 00:00:00 00:00:00 [facility] ESTAB PT - [facility] LEVEL 4 [facility] 2021-09-04 2021-09-04 SUB ANNUAL STLMLC STLMLC [id number] Common 00:00:00 00:00:00 MCR [facility] WELLNESS - CHI VISIT [facility] 2021-07-31 2021-07-31 (TEL) STLMLC STLMLC [id number] Co mmon 00:00:00 00:00:00 [facility] - [facility] 2021-05-27 2021-05-27 OFFICE STLMLC STLMLC [id number] Co mmon 00:00:00 00:00:00 VISIT EST Spir it PT LEVEL 3 - CHI [facility] 2021-05-27 2021-05-27 (TEL) STLMLC STLMLC [id number] Co mmon 00:00:00 00:00:00 [facility] - [facility] 2021-02-10 2021-02-10 OFFICE STLMLC STLMLC [id number] Co mmon 00:00:00 00:00:00 [facility] ESTAB PT - [facility] LEVEL 4 [facility] 2021 2021 (HOSP F/U) STLMLC STLMLC [id number] Common 00:00:00 00:00:00 [facility] Follow Up - [facility] 2021-01-23 2021-01-23 (TEL) STLMLC STLMLC [id number] Co mmon 00:00:00 00:00:00 [facility] - [facility] 2020-11-14 2020-11-14 OFFICE STLMLC STLMLC [id number] Co mmon 00:00:00 00:00:00 [facility] ESTAB PT - [facility] LEVEL 4 [facility] 2020-11-14 2020-11-14 SUB ANNUAL STLMLC STLMLC [id number] Common 00:00:00 00:00:00 MCR [facility] WELLNESS - CHI VISIT [facility] 2020-08-13 2020-08-13 Outpatient STLMLC STLMLC [id number] Common 00:00:00 00:00:00 [facility] - [facility] 2020-06-11 2020-06-11 Outpatient STLMLC STLMLC [id number] Common 00:00:00 00:00:00 [facility] 2020-04-23 2020-04-23 Outpatient STLMLC STLMLC [id number] Common 00:00:00 00:00:00 [facility] 2020-04-16 2020-04-16 Outpatient STLMLC STLMLC [id number] Common 00:00:00 00:00:00 [facility] 2020-04-15 2020-04-15 Outpatient STLMLC STLMLC [id number] Common 00:00:00 00:00:00 [facility] 2020-01-17 2020-01-17 Outpatient STLMLC STLMLC [id number] Common 00:00:00 00:00:00 [facility] 2020-01-15 2020-01-15 Outpatient STLMLC STLMLC [id number] Common 00:00:00 00:00:00 [facility] 2019-11-30 2019-11-30 Outpatient STLMLC STLMLC [id number] Common 00:00:00 00:00:00 [facility] 2019-11-16 2019-11-16 Outpatient STLMLC STLMLC [id number] Common 00:00:00 00:00:00 [facility] 2019-10-26 2019-10-26 [facility] [id number] Common 10:15:00 10:15:00 t Specialty/U Sp eliza Specialty rology - [facility] /[facility] 2019-10-18 2019-10-18 [facility] [id number] Common 11:40:00 11:40:00 t [facility] 2019-10-10 2019-10-10 [facility] [id number] Common 09:00:00 09:00:00 t Specialty/U Sp eliza Specialty rology - [facility] /[facility] 2019-09-27 2019-09-27 [facility] [id number] Common 10:00:00 10:00:00 t Specialty/U Sp eliza Specialty rology - [facility] /[facility] 2019-09-26 2019-09-26 [facility] [id number] Common 11:15:00 11:15:00 t Specialty/U Sp eliza Specialty rology - [facility] 2019-09-06 2019-09-06 [facility] [id number] Common 14:14:00 14:14:00 t Specialty/U Sp eliza Specialty rology - [facility] 2019-08-09 2019-08-09 [facility] [id number] Common 10:30:00 10:30:00 t Specialty/U Sp eliza Specialty rology - [facility] 2019-08-07 2019-08-07 [facility] [id number] Common 09:45:00 09:45:00 t Specialty/U Sp eliza Specialty rology - [facility] 2019-07-31 2019-07-31 [facility] [id number] Common 09:29:00 09:29:00 t Specialty/U Sp eliza Specialty rology - [facility] 2019-07-27 2019-07-27 [facility] [id number] Common 13:45:00 13:45:00 t Specialty/U Sp eliza Specialty rology - [facility] 2019-07-24 2019-07-24 [facility] [id number] Common 08:08:00 08:08:[address] [facility] 2019-07-18 2019-07-18 [facility] [id number] Common 10:30:00 10:30:[address] [facility] 2019-07-04 2019-07-04 [facility] [id number] Common 14:52:00 14:52:[address] [facility] 2019-04-13 2019-04-13 [facility] [id number] Common 09:15:00 09:15:[address] [facility] 2019-04-13 2019-04-13 [facility] [id number] Common 09:00:00 09:00:[address] [facility] 2019-03-29 2019-03-29 [facility] [id number] Common 15:50:00 15:50:[address] [facility] 2018-12-27 2018-12-27 [facility] [id number] Common 16:30:00 16:30:[address] [facility] 2018-12-19 2018-12-19 [facility] [id number] Common 16:47:00 16:47:[address] [facility] 2018-12-19 2018-12-19 [facility] [id number] Common 16:04:00 16:04:[address] [facility] 2018-10-05 2018-10-05 [facility] [id number] Common 16:53:00 16:53:[address] [facility] 2018-10-03 2018-10-03 [facility] [id number] Common 14:09:00 14:09:[address] [facility] 2018-08-02 2018-08-02 [facility] [id number] Common 10:00:00 10:00:[address] [facility] 2018-06-14 2018-06-14 [facility] [id number] Common 10:36:00 10:36:[address] [facility] 2018-04-20 2018-04-20 [facility] [id number] Common 08:30:00 08:30:[address] [facility] 2018-01-20 2018-01-20 [facility] [id number] Common 08:30:00 08:30:[address] [facility] 2018-01-19 2018-01-19 [facility] [id number] Common 10:01:00 10:01:[address] [facility] 2017-11-02 2017-11-02 [facility] [id number] Common 13:45:00 13:45:[address] [facility] 2017-08-10 2017-08-10 [facility] [id number] Common 14:45:00 14:45:[address] [facility] 2017-05-28 2017-05-28 [facility] [id number] Common 10:15:00 10:15:[address] [facility] Results Test Description Test Time Test Comments Results Result Comments Source BLOOD CULTURE 2022-06-10 10:00:52 Test Item Value Reference Range Interpretation Comme nts CULTURE (BEAKER) (test code = 1095) No growth in 5 days BLOOD [id number] 10:00:52 Test Item Value Reference Range Interpretation Comments CULTURE (BEAKER) (test No growth in 5 days code = 1095) POC-Glucose [id number] 12:17:25 Test Item Value Reference Range Interpretation Comments POC-Glucose Meter (test 152 mg/dL 70-110 H : TE STED AT [facility] code = 1538) [address] [facility] [id number]: Administrative Library Assistant/Techni rasheeda ID = [id number] for Farideh Weiss Lab Interpretation (test Abnormal code = 94915-0) [facility] [id number] 12:17:25 Test Item Value Reference Range Interpretation Comments POC-GLUCOSE METER 152 mg/dL 70-110 H : TESTED A T [facility] 1317 (BEAKER) (test [facility] = 1538) [facility] 77 478: Administrative Library Assistant/Techni rasheeda ID = [id number] for Will India marrero RAD, CHEST, 1 VIEW, NON [id number] 07:24:00Reason for exam:->Right lower lobar pnemonia follow-upShould this be performed at the bedside?->Yes [facility] 1950 Sex: MFINAL REPORT Chest one view: HISTORY: Right lower lobe pneumonia follow- up There are no prior studies for comparison. Mild airspace opacities are present in the right lung base. There is no pleural effusion. The cardiomediastinal silhouette is within normal limits. The bony thorax appears in tact. Signed: Syd Zavala Verified Date/Time: 06/07/2022 07:24:55 -GLUCOSE [id number] 06:29:56 Test Item Value Reference Range Interpretation Comments POC-GLUCOSE METER 121 mg/dL 70-110 H : TESTED A T SLSL 1317 (BEAKER) (test code [address], = 1538) [facility] 77 478: Administrative Library Assistant/Techni rasheeda ID = [id number] for Effie Molina BASIC METABOLIC [id number] 06:04:12 Test Item Value Reference Range Interpretation Comments SODIUM (BEAKER) 137 meq/L 135-148 (test code = 381) POTASSIUM 4.5 meq/L 3.6-5.5 (BEAKER) (test code = 379) CHLORIDE (BEAKER) 105 meq/L 98-106 (test code = 382) CO2 (BEAKER) 20 meq/L 20-29 (test code = 355) BLOOD UREA 38 mg/dL 10-26 H NITROGEN (BEAKER) (test code = 354) CREATININE 0.97 mg/dL 0.50-1.20 (BEAKER) (test code = 358) GLUCOSE RANDOM 119 mg/dL 70-110 H (BEAKER) (test code = 652) CALCIUM (BEAKER) 8.9 mg/dL 8.5-10.5 (test code = 697) EGFR (BEAKER) 83 Interpretatio n of eGFR (test code = mL/min/1.73 values Stage De scription 1092) sq m Result G1 Mary Beth l or high >=90 G2 Mildly decreased 60-89 G3a Mildl y to moderately 45-5 9 G3b Moderately to s everely 30-44 G4 Severl y decreased 15-29 G5 Kidney failure <15Reported eGF R is based on the CKD-EPI 2020 equation that d oes not use a race coefficientEsti mated GFR is not as accur ate as Creatinine Chelsea reena in predicting glom erular filtration rate . Estimated GFR is not appl icable for dialysis patien ts Administrative Library Assistant ID - [id number] ID - [id number] ID - [id number] ID - [id number] ID - [id number] ID - [id number] ID - [id number] ID - [id number] ID - [id number] ID - [id number] ID - [id number] ID - [id number] W/PLT COUNT & AUTO [id number] 05:54:59 Test Item Value Reference Range Interpretation Comments WHITE BLOOD CELL COUNT (BEAKER) 15.6 K/ L 4.0-10.0 H (test code = 775) RED BLOOD CELL COUNT (BEAKER) 3.72 M/ L 4.20-5.80 L (test code = 761) HEMOGLOBIN (BEAKER) (test code = 10.8 GM/DL 13.0-16.8 L 410) HEMATOCRIT (BEAKER) (test code = 34.1 % 36.0-50.0 L 411) MEAN CORPUSCULAR VOLUME (BEAKER) 92 fL 82-99 (test code = 753) MEAN CORPUSCULAR HEMOGLOBIN 29.0 pg 27.0-33.0 (BEAKER) (test code = 751) MEAN CORPUSCULAR HEMOGLOBIN CONC 31.7 GM/DL 32.0-36.0 L (BEAKER) (test code = 752) RED CELL DISTRIBUTION WIDTH 15.1 % 12.0-15.0 H (BEAKER) (test code = 412) PLATELET COUNT (BEAKER) (test 291 K/CU MM 150-430 code = 756) MEAN PLATELET VOLUME (BEAKER) 8.9 fL 6.0-11.5 (test code = 754) NUCLEATED RED BLOOD CELLS 0 /100 WBC 0-0 (BEAKER) (test code = 413) NEUTROPHILS RELATIVE PERCENT 85 % (BEAKER) (test code = 429) LYMPHOCYTES RELATIVE PERCENT 8 % (BEAKER) (test code = 430) MONOCYTES RELATIVE PERCENT 6 % (BEAKER) (test code = 431) EOSINOPHILS RELATIVE PERCENT 0 % (BEAKER) (test code = 432) BASOPHILS RELATIVE PERCENT 0 % (BEAKER) (test code = 437) NEUTROPHILS ABSOLUTE COUNT 13.27 K/ L 1.80-8.00 H (BEAKER) (test code = 670) LYMPHOCYTES ABSOLUTE COUNT 1.17 K/ L 1.48-4.50 L (BEAKER) (test code = 414) MONOCYTES ABSOLUTE COUNT (BEAKER) 0.88 K/ L 0.00-1.30 (test code = 415) EOSINOPHILS ABSOLUTE COUNT 0.00 K/ L 0.00-0.50 (BEAKER) (test code = 416) BASOPHILS ABSOLUTE COUNT (BEAKER) 0.03 K/ L 0.00-0.20 (test code = 417) IMMATURE GRANULOCYTES-RELATIVE 1.50 % 0.00-0.00 H PERCENT (BEAKER) (test code = 2801) POCT-GLUCOSE [id number] 22:13:06 Test Item Value Reference Range Interpretation Comments POC-GLUCOSE METER 177 mg/dL 70-110 H : TESTED A T SLSL 1317 (BEAKER) (test code [address], = 1538) [facility] 77 478: Administrative Library Assistant/Techni rasheeda ID = [id number] for Effie Molina POCT-GLUCOSE [id number] 15:57:48 Test Item Value Reference Range Interpretation Comments POC-GLUCOSE METER 159 mg/dL 70-110 H : TESTED A T SLSL 1317 (Novap[employer]) (test code [facility] [address], = 1538) [place] [id number]: Administrative Library Assistant/Techni rasheeda ID = [id number] for [place] Trinh [id number] 13:23:05 Test Item Value Reference Range Interpretation Comments PROCALCITONIN (Novapost) (test code = < ng/mL <0.05 3036) SEPSIS RISK (ng/mL)Low: 0.05-0.50Intermediate: 0.51-2.00High: >=2.01POCT- GLUCOSE [id number] 12:14:53 Test Item Value Reference Range Interpretation Comments POC-GLUCOSE METER 114 mg/dL 70-110 H : TESTED A T SLSL 1317 ([employer]) (test code [address], = 1538) [place] [id number]: Administrative Library Assistant/Techni rasheeda ID = [id number] for Will [place] marrero POCT-GLUCOSE [id number] 06:42:47 Test Item Value Reference Range Interpretation Comments POC-GLUCOSE METER 174 mg/dL 70-110 H : TESTED A T SLSL 1317 (Novap[employer]) (test code [facility], = 1538) [place] [id number]: Administrative Library Assistant/Techni rasheeda ID = [id number] for Breanna Saul [id number] 06:09:17 Test Item Value Reference Range Interpretation Comments D-DIMER QUANTITATIVE 0.30 MG/L FEU <0.50 Final Information (Novapost) (test code = (Auto Output) 671) REGARDING D-DIMER RESULTS: The 98% NPV (Negative Predictive Value) for DVT/PE exclusion is 0.50 mg/LFEU as suggested by the decommissioning well site manager and as approved by the FDA.C-REACTIVE [id number] 06:03:59 Test Item Value Reference Range Interpretation Comments C-REACTIVE PROTEIN ([employer]) (test 10.74 mg/dL 0.00-0.50 H code = 676) Administrative Library Assistant ID - [id number] METABOLIC [id number] 06:03:07 Test Item Value Reference Range Interpretation Comments SODIUM (BEAKER) 138 meq/L 135-148 (test code = 381) POTASSIUM 4.6 meq/L 3.6-5.5 (BEAKER) (test code = 379) CHLORIDE (BEAKER) 101 meq/L 98-106 (test code = 382) CO2 (BEAKER) 23 meq/L 20-29 (test code = 355) BLOOD UREA 32 mg/dL 10-26 H NITROGEN (BEAKER) (test code = 354) CREATININE 0.93 mg/dL 0.50-1.20 (BEAKER) (test code = 358) GLUCOSE RANDOM 149 mg/dL 70-110 H (BEAKER) (test code = 652) CALCIUM (BEAKER) 9.4 mg/dL 8.5-10.5 (test code = 697) EGFR (BEAKER) 87 Interpretatio n of eGFR (test code = mL/min/1.73 values Stage De scription 1092) sq m Result G1 Mary Beth l or high >=90 G2 Mildly decreased 60-89 G3a Mildl y to moderately 45-5 9 G3b Moderately to s everely 30-44 G4 Severl y decreased 15-29 G5 Kidney failure <15Reported eGF R is based on the CKD-EPI 2021 equation that d oes not use a race coefficientEsti mated GFR is not as accur ate as Creatinine Chelsea valles in predicting glom erular filtration rate . Estimated GFR is not appl icable for dialysis patien ts Administrative Library Assistant ID - [id number] ID - [id number] ID - [id number] ID - [id number] ID - JQWB48Gikwnnmp ID - GCSC34Bndkilmd ID - DBLB32Ukrzsqhv ID - PCVG01Ohddojpt ID - HRTB60Yfvwnwsh ID - [id number] ID - UIHM59Hgualiif ID - [id number] W/PLT COUNT & AUTO [id number] 05:46:10 Test Item Value Reference Range Interpretation Comments WHITE BLOOD CELL COUNT (BEAKER) 11.7 K/ L 4.0-10.0 H (test code = 775) RED BLOOD CELL COUNT (BEAKER) 3.94 M/ L 4.20-5.80 L (test code = 761) HEMOGLOBIN (BEAKER) (test code = 11.4 GM/DL 13.0-16.8 L 410) HEMATOCRIT (BEAKER) (test code = 36.6 % 36.0-50.0 411) MEAN CORPUSCULAR VOLUME (BEAKER) 93 fL 82-99 (test code = 753) MEAN CORPUSCULAR HEMOGLOBIN 28.9 pg 27.0-33.0 (BEAKER) (test code = 751) MEAN CORPUSCULAR HEMOGLOBIN CONC 31.1 GM/DL 32.0-36.0 L (BEAKER) (test code = 752) RED CELL DISTRIBUTION WIDTH 15.0 % 12.0-15.0 (BEAKER) (test code = 412) PLATELET COUNT (BEAKER) (test 278 K/CU MM 150-430 code = 756) MEAN PLATELET VOLUME (BEAKER) 9.1 fL 6.0-11.5 (test code = 754) NUCLEATED RED BLOOD CELLS 0 /100 WBC 0-0 (BEAKER) (test code = 413) NEUTROPHILS RELATIVE PERCENT 88 % (BEAKER) (test code = 429) LYMPHOCYTES RELATIVE PERCENT 7 % (BEAKER) (test code = 430) MONOCYTES RELATIVE PERCENT 3 % (BEAKER) (test code = 431) EOSINOPHILS RELATIVE PERCENT 0 % (BEAKER) (test code = 432) BASOPHILS RELATIVE PERCENT 0 % (BEAKER) (test code = 437) NEUTROPHILS ABSOLUTE COUNT 10.28 K/ L 1.80-8.00 H (BEAKER) (test code = 670) LYMPHOCYTES ABSOLUTE COUNT 0.87 K/ L 1.48-4.50 L (BEAKER) (test code = 414) MONOCYTES ABSOLUTE COUNT (BEAKER) 0.40 K/ L 0.00-1.30 (test code = 415) EOSINOPHILS ABSOLUTE COUNT 0.00 K/ L 0.00-0.50 (BEAKER) (test code = 416) BASOPHILS ABSOLUTE COUNT (BEAKER) 0.02 K/ L 0.00-0.20 (test code = 417) IMMATURE GRANULOCYTES-RELATIVE 1.40 % 0.00-0.00 H PERCENT (BEAKER) (test code = 2801) Sodium, random [id number] 23:01:58 Test Item Value Reference Range Interpretation Comments Sodium Urine (test 55 meq/L code = 2955-3) MALLORY (test code = Reference Range: No MALLORY) NormalsOperator ID - [id number] [facility]OM [id number] 23:01:58 Test Item Value Reference Range Interpretation Comments SODIUM URINE (BEAKER) (test code = 55 meq/L 243) Reference Range: No NormalsOperator ID - [id number] 20:22:26 Test Item Value Reference Range Interpretation Comments POC-GLUCOSE METER 180 mg/dL 70-110 H : TESTED A T SLSL 1317 (BEAKER) (test code [address], = 1538) [place] [id number]: Administrative Library Assistant/Techni rasheeda ID = [id number] for Breanna Saul [id number] 18:10:36 Test Item Value Reference Range Interpretation Comments D-DIMER QUANTITATIVE 0.31 MG/L FEU <0.50 Final Information (JUNIOR) (test code = (Auto Output) 671) REGARDING D-DIMER RESULTS: The 98% NPV (Negative Predictive Value) for DVT/PE exclusion is 0.50 mg/LFEU as suggested by the decommissioning well site manager and as approved by the FDA.[id number] 17:43:53 Test Item Value Reference Range Interpretation Comments SODIUM (BEAKER) (test code = 381) 133 meq/L 135-148 L Administrative Library Assistant ID - [id number] 16:28:23 Test Item Value Reference Range Interpretation Comments POC-GLUCOSE METER 149 mg/dL 70-110 H : TESTED A T SLSL 1317 (BEAKER) (test code [address], = 1538) [place] [id number]: Administrative Library Assistant/Techni rasheeda ID = [id number] for Natty Berger Strep pneumoniae [id number] 14:13:59 Test Item Value Reference Range Interpretation Comments Strep pneumoniae Presumptive negative Presumptive Antigen (test code = [place] [address]-9) pneumonia - see pneumococcal comment pneumonia - see comment, Presumptive negative for pneumococcal meningitis - see comment MALLORY (test code = MALLORY) Presumptive negative for pneumococcal pneumonia, suggesting no current or recent pneumococcal infection. Infection due to S. pneumoniae cannot be ruled out since the antigen present in the sample may be below the detection limit of the test. Lab Interpretation Normal (test code = 16476-3) [facility] Center[facility]REP PNEUMONIAE [id number] 14:13:59 Test Item Value Reference Range Interpretation Comments STREP PNEUMONIAE Presumptive negative Presumptive negative ANTIGEN ([employer] TechnologyAKER) for pneumococcal for pneumococcal (test code = 1615) pneumonia - see pneumonia - see comment commen Presumptive negative for pneumococcal pneumonia, suggesting no current or recent pneumococcal infection. Infection due to S. pneumoniae cannot be ruled out since the antigen present in the sample may be below the detection limit of the test. Osmolality, [id number] 14:09:29 Test Item Value Reference Range Interpretation Comments Osmolality, Ur (test code 627 See_Comment [ Automated message] = 2695-5) The system [employer] generated this result transmitted ref erence range: 50-1,200 mOsm/kg mOsm/kg . The reference range was not used to int erpret this result as normal/abnormal . Lab Interpretation (test Normal code = 51686-5) [facility]OL[facility]ITY, [id number] 14:09:29 Test Item Value Reference Range Interpretation Comments OSMOLALITY URINE 627 mOsm/kg See_Comment [Automated message] (BEAKER) (test code = The sy stem which 614) generated this result transmitted ref erence range: 50-1,200 mOsm/kg. The reference range was not used to int erpret this result as normal/abnormal . C-REACTIVE [id number] 09:00:28 Test Item Value Reference Range Interpretation Comments C-REACTIVE PROTEIN (JUNIOR) (test 15.24 mg/dL 0.00-0.50 H code = 676) Administrative Library Assistant ID - [id number] [id number] 07:12:01 Test Item Value Reference Range Interpretation Comments POC-GLUCOSE METER 103 mg/dL 70-110 : TESTED A T SLSL 1317 ([facility]ap[facility]) ([facility] [address] = [facility]38[facility] 77 478: Administrative Library Assistant/Techni rasheeda ID = [id number] for Yana Barry TROPONIN [id number] 05:28:57 Test Item Value Reference Range Interpretation Comments TROPONIN I (BEAKER) (test code = 397) < ng/mL 0.00-0.15 Troponin I (TnI) levels must be interpreted in the context of the presenting symptoms and the clinical findings. Elevated TnI levels indicate myocardial damage, but are not specific for ischemic heart disease. Elevated TnI levels are seen in patients with other cardiac conditions (including myocarditis and congestive heart failure), and slight TnI elevations occur in patients with other conditions, including sepsis, renal failure, acidosis, acute neurological disease, and persistent tachyarrhythmia.Administrative Library Assistant ID - LITOHEMOGLOBIN A1C 2022-06-05 05:27:58 Test Item Value Reference Range Interpretation Comments HEMOGLOBIN A1C (BEAKER) (test code = 6.5 % 4.3-6.1 H 368) Administrative Library Assistant ID - LITOSODIUM, RANDOM [id number] 05:26:55 Test Item Value Reference Range Interpretation Comments SODIUM URINE (BEAKER) (test code = 65 meq/L 243) Reference Range: No NormalsOperator ID - [id number] 05:17:32 Test Item Value Reference Range Interpretation Comments MAGNESIUM (BEAKER) (test code = 1.9 mg/dL 1.5-3.0 627) Administrative Library Assistant ID - LITOOperator ID - LITOOperator ID - LITOOperator ID - CHARIS COMPREHENSIVE METABOLIC [id number] 05:17:25 Test Item Value Reference Range Interpretation Comments TOTAL PROTEIN 6.4 gm/dL 6.0-8.5 (BEAKER) (test code = 770) ALBUMIN (BEAKER) 3.5 g/dL 3.5-5.0 (test code = 1145) ALKALINE 55 U/L 30-115 PHOSPHATASE (BEAKER) (test code = 346) BILIRUBIN TOTAL < mg/dL 0.1-1.2 (BEAKER) (test code = 377) SODIUM (BEAKER) 134 meq/L 135-148 L (test code = 381) POTASSIUM (BEAKER) 4.2 meq/L 3.6-5.5 (test code = 379) CHLORIDE (BEAKER) 100 meq/L 98-106 (test code = 382) CO2 (BEAKER) (test 22 meq/L 20-29 code = 355) BLOOD UREA 37 mg/dL 10-26 H NITROGEN (BEAKER) (test code = 354) CREATININE 1.03 mg/dL 0.50-1.20 (BEAKER) (test code = 358) GLUCOSE RANDOM 179 mg/dL 70-110 H (BEAKER) (test code = 652) CALCIUM (BEAKER) 8.9 mg/dL 8.5-10.5 (test code = 697) AST (SGOT) 14 U/L 5-40 (BEAKER) (test code = 353) ALT (SGPT) 15 U/L 5-50 (BEAKER) (test code = 347) EGFR (BEAKER) 77 Interpretatio n of eGFR (test code = 1092) mL/min/1.[address] age Description sq m Result G1 Mary Beth l or high >=90 G2 Mildly decreased 60-89 G3a Mildl y to moderately 45-5 9 G3b Moderately to s everely 30-44 G4 Severl y decreased 15-29 G5 Kidney failure <15Reported eGF R is based on the CKD-EPI 2020 equation that d oes not use a race coefficientEsti mated GFR is not as accur ate as Creatinine Chelsea valles in predicting glom erular filtration rate . Estimated GFR is not appl icable for dialysis patien ts Administrative Library Assistant ID - LITOOperator ID - LITOOperator ID - LITOOperator ID - LITOOperator ID - LITOOperator ID - LITOOperator ID - LITOOperator ID - LITOOperator ID - LITOOperator ID - LITOOperator ID - LITOOperator ID - LITOOperator ID - LITOOperator ID - LITOOperator ID - LITOOperator ID - LITOLIPID [id number] 05:16:47 Test Item Value Reference Range Interpretation Comments TRIGLYCERIDES (BEAKER) (test code = 135 mg/dL 540) CHOLESTEROL (BEAKER) (test code = 155 mg/dL 631) HDL CHOLESTEROL (BEAKER) (test code 57 mg/dL = 976) LDL CHOLESTEROL CALCULATED (BEAKER) 71 mg/dL (test code = 633) Triglyceride Reference Range: Low Risk <150 Borderline 150-199 High Risk 200- 499 Very High Risk >=500Cholesterol Reference Range: Low Risk <200 Borderline 200-239 High Risk >240HDL Cholesterol Reference Range: Low Risk >=60 High Risk <40LDL Cholesterol Reference Range: Optimal <100 Near Optimal 100-129 Borderline 130-159 High 160-189 Very High >=190 Administrative Library Assistant ID - LITOOperator ID - LITOOperator ID - LITOBlood gas, [id number] 05:14:45 Test Item Value Reference Range Interpretation Comments pH, Arterial (test code 7.43 7.35-7.45 = 2744-1) pCO2, Arterial (test 36 See_Comment [Autom ated code = 2018-) message] The system which generated this result transmitted reference range : 35 - 45 mm Hg. The reference range was not used to interpret this result as normal/abnormal . pO2, Arterial (test 110 See_Comment H [Automa vilma code = 2703-7) message] The system which generated this result transmitted reference range : 80 - 90 mm Hg. The reference range was not used to interpret this result as normal/abnormal . O2 Sat, Arterial (test 98.3 % 96.0-97.0 H code = 2708-6) HCO3, Arterial (test 24 mmol/L -29 code = 1960-4) Base Excess, Arterial -0.5 mmol/L -2.0-3.0 (test code = 1925-7) Patient Temperature 36.5 (test code = 8310-5) FIO2 (test code = 1819) 28 Lab Interpretation Abnormal (test code = 98198-3) [facility], [id number] 05:14:45 Test Item Value Reference Range Interpretation Comments PH ARTERIAL (BEAKER) (test code = 7.43 7.35-7.45 383) PCO2 ARTERIAL (BEAKER) (test code 36 mm Hg 35-45 = 384) PO2 ARTERIAL (BEAKER) (test code 110 mm Hg 80-90 H = 385) O2 SATURATION ARTERIAL (BEAKER) 98.3 % 96.0-97.0 H (test code = 386) HCO3 ARTERIAL (BEAKER) (test code 24 mmol/L -29 = 388) BASE EXCESS ARTERIAL (BEAKER) -0.5 mmol/L -2.0-3.0 (test code = 387) PATIENT TEMPERATURE (BEAKER) 36.5 (test code = 1818) FIO2 (BEAKER) (test code = 1819) 28.0 PROTHROMBIN [id number] 05:14:04 Test Item Value Reference Range Interpretation Comments PROTIME (BEAKER) 11.0 seconds 9.3-12.0 Final Infor mation (test code = 759) (Auto Outp ut) INR (BEAKER) (test 1.00 <=5.90 Final Inf ormation code = 370) (Auto Output) RECOMMENDED COUMADIN/WARFARIN INR THERAPY RANGESSTANDARD DOSE: 2.0 - 3.0 Includes: PROPHYLAXIS for venous thrombosis, systemic embolization; TREATMENT for venous thrombosis and/or pulmonary embolus.HIGH RISK: Target INR is 2.5-3.5 for patients with mechanical heart valves.[id number] 05:14:03 Test Item Value Reference Range Interpretation Comments PHOSPHORUS (BEAKER) (test code = 3.7 mg/dL 2.5-4.5 604) Administrative Library Assistant ID - LITOCBC W/PLT COUNT & AUTO [id number] 05:03:57 Test Item Value Reference Range Interpretation Comments WHITE BLOOD CELL COUNT (BEAKER) 11.5 K/ L 4.0-10.0 H (test code = 775) RED BLOOD CELL COUNT (BEAKER) 3.79 M/ L 4.20-5.80 L (test code = 761) HEMOGLOBIN (BEAKER) (test code = 10.9 GM/DL 13.0-16.8 L 410) HEMATOCRIT (BEAKER) (test code = 34.1 % 36.0-50.0 L 411) MEAN CORPUSCULAR VOLUME (BEAKER) 90 fL 82-99 (test code = 753) MEAN CORPUSCULAR HEMOGLOBIN 28.8 pg 27.0-33.0 (BEAKER) (test code = 751) MEAN CORPUSCULAR HEMOGLOBIN CONC 32.0 GM/DL 32.0-36.0 (BEAKER) (test code = 752) RED CELL DISTRIBUTION WIDTH 14.9 % 12.0-15.0 (BEAKER) (test code = 412) PLATELET COUNT (BEAKER) (test 246 K/CU MM 150-430 code = 756) MEAN PLATELET VOLUME (BEAKER) 9.4 fL 6.0-11.5 (test code = 754) NUCLEATED RED BLOOD CELLS 0 /100 WBC 0-0 (BEAKER) (test code = 413) NEUTROPHILS RELATIVE PERCENT 87 % (BEAKER) (test code = 429) LYMPHOCYTES RELATIVE PERCENT 7 % (BEAKER) (test code = 430) MONOCYTES RELATIVE PERCENT 4 % (BEAKER) (test code = 431) EOSINOPHILS RELATIVE PERCENT 0 % (BEAKER) (test code = 432) BASOPHILS RELATIVE PERCENT 0 % (BEAKER) (test code = 437) NEUTROPHILS ABSOLUTE COUNT 9.99 K/ L 1.80-8.00 H (BEAKER) (test code = 670) LYMPHOCYTES ABSOLUTE COUNT 0.78 K/ L 1.48-4.50 L (BEAKER) (test code = 414) MONOCYTES ABSOLUTE COUNT (BEAKER) 0.50 K/ L 0.00-1.30 (test code = 415) EOSINOPHILS ABSOLUTE COUNT 0.00 K/ L 0.00-0.50 (BEAKER) (test code = 416) BASOPHILS ABSOLUTE COUNT (BEAKER) 0.02 K/ L 0.00-0.20 (test code = 417) IMMATURE GRANULOCYTES-RELATIVE 1.40 % 0.00-0.00 H PERCENT (BEAKER) (test code = 2801)
[2022-06-11] MEDS ORDERED: METHYLPREDNISOLONE 125 MG INJ ONE (10:33)
[2022-06-11] MEDS ORDERED: ADENOSINE 6 MG/ 2ML VIAL IV ONE (10:33)
[2022-06-11] MEDS ORDERED: MAGNESIUM SULFATE 1 gm IVPB 1 GM/100 ML BAG IV ONE (10:33)
[2022-06-11] MEDS ORDERED: LEVALBUTEROL 1.25 MG/3 ML NEB ONE (10:33)
[2022-06-11] MEDS ORDERED: FENTANYL CITR 100 MCG/2 ML ONE (10:42)
[2022-06-11] MEDS ORDERED: ONDANSETRON 4 MG/2 ML VIAL ONE (10:45)
[2022-06-11 10:48] LABS: Absolute Lymphocytes (CBC) 2.8 K/uL (0.7-4.9); Hematocrit 42.4 % (39.6-49.0); Lymphocytes % 17.1 % (15.3-44.8); MCV 87.2 fL (80-100); MPV 6.5 fL (7.6-11.3); RBC Red Blood Cell Count 4.86 M/uL (4.33-5.43)
[2022-06-11 10:50] LABS: Protime INR 1.11
[2022-06-11] MEDS ORDERED: NA CHLORIDE 0.9% 2,000 ML ONE (10:51)
[2022-06-11] MEDS ORDERED: AMIODARONE IN DEXTROSE,ISO-OSM 360 MG/200 ML BAG IV ONE (10:53)
[2022-06-11] MEDS ORDERED: LEVALBUTEROL 0.63 MG/3 ML NEB ONE (10:54)
[2022-06-11] MEDS ORDERED: AMIODARONE HCL 150 MG/3 ML INJ IV ONE (10:55)
[2022-06-11] MEDS ORDERED: D5W 100 ML IV ONE (10:56)
[2022-06-11 11:03] LABS: Albumin 3.3 g/dL (3.4-5.0); Bilirubin Total 0.5 mg/dL (0.2-1.0); Potassium 4.5 mEq/L (3.5-5.1); Protein, Total 7.2 g/dL (6.4-8.2); Troponin High Sensitivity 41.7 pg/mL (<58.9)
[2022-06-11] MEDS ORDERED: ENOXAPARIN 30 MG/0.3 ML SQ ONE (11:22)
[2022-06-11] MEDS ORDERED: ENOXAPARIN 40 MG/0.4 ML SQ ONE (11:23)
--- NOTE | 2022-06-11 11:29 | RAD REPORT ---
EXAM DESCRIPTION: Reginald Single View06/11/2022 10:59 am CLINICAL HISTORY: sob COMPARISON: June 04, 2022 FINDINGS: Partial resolution in right basilar lung opacities which are mild Lungs are moderately hyperaerated. Heart is normal size.
[2022-06-11 12:01] LABS: Platelet Estimate INCR
[2022-06-11 12:02] LABS: Blood Morphology Comment NOT SEEN (NOT SEEN); Platelets, Giant NOTED
--- NOTE | 2022-06-11 12:03 | EDPHYS ---
Physician Documentation [facility] Name: Jose Marcelino Age: 72 yrs Sex: Male : 1950 Arrival Date: 06/11/2022 Time: 10:18 Bed 3 Private MD: ED Physician Que Fuentes HPI: 06/11 10:55 This 72 yrs old Male presents to ER via EMS with complaints of Shortness Of Breath, rn Irregular Pulse. 10:55 The patient has shortness of breath at rest, with light activity. Onset: The rn symptoms/episode began/occurred 3 day(s) ago. Duration: The symptoms are continuous. The patient's shortness of breath is aggravated by exertion, light activity, is alleviated by application of supplemental oxygen. Associated signs and symptoms: Pertinent positives: non-productive cough, dizziness, Pertinent negatives: chest pain, fever, hemoptysis. Severity of symptoms: At their worst the symptoms were moderate in the emergency department the symptoms are unchanged. The patient has not experienced similar symptoms in the past. The patient has been recently seen by a physician:. Pt reports sob for a few days, recent admission for COVID pneumonia and COPD. EMS reports HR in 150s-180s, patient without hx of SVT/afib or arrhythmia. No abd pain. + nausea. NO chest pain. . Historical: - Allergies: 10:46 Atrovent; iw - PMHx: 10:46 Chronic obstructive lung disease; diabetes mellitus; Hypertensive disorder; iw - Immunization history:: Adult Immunizations up to date, Client reports receiving the 2nd dose of the Covid vaccine. - Social history:: Smoking status: Patient reports the use of cigarette tobacco products, Patient/guardian denies using. - Family history:: not pertinent. - Hospitalizations: : Patient was recently seen at. ROS: 10:55 Constitutional: Negative for fever, chills, and weight loss, Eyes: Negative for injury, rn pain, redness, and discharge, ENT: Negative for injury, pain, and discharge, Cardiovascular: + heart racing Respiratory: + sob Abdomen/GI: + nausea MS/Extremity: Negative for injury and deformity, Skin: Negative for injury, rash, and discoloration, Neuro: Negative for headache, numbness, tingling, and seizure. Exam: :27 ECG was reviewed by the Attending Physician. rn 10:55 Constitutional: This is a well developed, well nourished patient who is awake, alert, rn diaphoretic and tachypneic ENT: dry mm, no stridor Cardiovascular: Tachycardic, regular. No pulse deficits. Respiratory: + moderate tachypnea with retractions Abdomen/GI: soft, non-tender Skin: cool ext, diaphoresis MS/ Extremity: Equal circumference. Neuro: Awake and alert, GCS 15, oriented to person, place, time, and situation. Vital Signs: 10:34 BP 79 / 45; Pulse 155; Resp 28; Pulse Ox 100% on BiPAP; iw 10:44 BP 85 / 52; Pulse 147; Resp 23; Pulse Ox 99% on 4 lpm NC; iw 11:00 BP 76 / 43; Pulse 142; Resp 19; Pulse Ox 99% on Nebulizer Mask; iw 11:08 BP 89 / 50; Pulse 76; Resp 20; Pulse Ox 100% on Nebulizer Mask; iw 11:11 Weight 70.5 kg; iw 11:11 Temp 97.6(A); iw 11:43 BP 92 / 41; Pulse 87; Resp 20; Pulse Ox 99% ; ko1 11:51 BP 118 / 45; rn MDM: 10:20 Patient medically screened. rn 10:28 ED course: Ordered Bipap immediately as well as treatment for COPD and adenosine for rn SVT, is right at 150, regular, with rate related strain. If adenosine does not work, will consider cardioversion.. 10:50 ED course: ECG from EMS shows HR in 180s, irregular, decision made to load with rn amiodarone and drip given symptoms for 3 days and not anticoagulated. BP coming up with bolus and time, if becomes hypotensive, will consider cardioversion again. Pt states already feeling much better, no longer diaphoretic. . 10:55 ED course: Pt was placed on bipap, did not tolerate well, began to throw up, had to rn take off of bipap immediately, did not throw up while wearing mask. . 11:10 ED course: pt back to sinus rhythm, HR in 90s, pt feels much better. . rn 12:01 Differential diagnosis: Anemia Anxiety Reaction Chronic Obstructive Pulmonary Disease rn Myocardial Infarction pneumonia, Pneumothorax pulmonary edema, Pulmonary Embolism reactive airway disease, Sepsis. Data reviewed: vital signs, nurses notes, lab test result(s), EKG, radiologic studies, plain films, and as a result, I will admit patient. Consideration of Admission/Observation Patient was admitted/placed on observation. Escalation of care including admission/observation considered. Management of patient was discussed with the following: Hospitalist: . Independent interpretation of the following test(s) in the Emergency Department EKG: See my EKG interpretation above X-Ray: My interpretation is CXR images neg for pneumothorax per my interpretation. Counseling: I had a detailed discussion with the patient and/or guardian regarding: the historical points, exam findings, and any diagnostic results supporting the discharge/admit diagnosis, lab results, radiology results, the need for further work-up and treatment in the hospital. Response to treatment: the patient's symptoms have markedly improved after treatment, and as a result, I will admit patient. 06/11 10:21 Order name: Blood Culture Adult (2) rn 06/11 10:21 Order name: CBC with Diff rn 06/11 10:21 Order name: CMP; Complete Time: 11: rn 06/11 10:21 Order name: Lactate w/ 2H reflex if indic.; Complete Time: 11: rn 06/11 10:21 Order name: Protime (+inr); Complete Time: 11: rn 06/11 10:21 Order name: Ptt, Activated; Complete Time: 11: rn 06/11 10:21 Order name: ABG rn 06/11 10:21 Order name: COVID-19 SARS RT PCR; Complete Time: 11:51 rn 06/11 10:21 Order name: Flu; Complete Time: 11: rn 06/11 10:21 Order name: BNP; Complete Time: 11: rn 06/11 10:21 Order name: Troponin High Sensitivity; Complete Time: 11:28 rn 06/11 10:51 Order name: Manual Differential EDMS 06/11 13:54 Order name: Urinalysis w/ reflexes EDMS 06/11 13:54 Order name: CBC with Automated Diff EDMS 06/11 13:54 Order name: CBC with Automated Diff EDMS 06/11 13:54 Order name: Comprehensive Metabolic Panel EDMS 06/11 13:54 Order name: Comprehensive Metabolic Panel EDMS 06/11 13:54 Order name: Lipid Profile EDMS 06/11 13:54 Order name: Lipid Profile EDMS 06/11 13:54 Order name: Magnesium EDMS 06/11 13:54 Order name: Magnesium EDMS 06/11 13:54 Order name: NT PRO-BNP EDMS 06/11 13:54 Order name: NT PRO-BNP EDMS 06/11 13:54 Order name: Phosphorus EDMS 06/11 13:54 Order name: Phosphorus EDMS 06/11 13:54 Order name: T4 Free EDMS 06/11 13:54 Order name: T4 Free EDMS 06/11 13:54 Order name: Thyroid Stimulating Hormone EDMS 06/11 13:54 Order name: Thyroid Stimulating Hormone EDMS 06/11 13:54 Order name: Troponin High Sensitivity EDMS 06/11 13:54 Order name: Troponin High Sensitivity EDMS 06/11 13:54 Order name: Iron EDMS 06/11 13:55 Order name: Protime (+INR) EDMS 06/11 13:55 Order name: PTT, Activated Partial Thromb EDMS 06/11 13:55 Order name: Retic Count EDMS 06/11 13:55 Order name: Vitamin B12 Level EDMS 06/11 14:02 Order name: Lactate w/ 2H reflex if indic. EDMS 06/11 14:02 Order name: Procalcitonin EDMS 06/11 10:21 Order name: Chest Single View XRAY; Complete Time: 11:51 rn 06/11 10:21 Order name: BIPAP rn 06/11 10:21 Order name: EKG; Complete Time: 10:22 rn 06/11 13:54 Order name: CONS Physician Consult EDMS 06/11 13:54 Order name: Heart Healthy EDMS 06/11 10:21 Order name: Accucheck; Complete Time: 11:11 rn 06/11 10:21 Order name: Cardiac monitoring; Complete Time: 10:25 rn 06/11 10:21 Order name: EKG - Nurse/Tech; Complete Time: 10:25 rn 06/11 10:21 Order name: IV Saline Lock - Large Bore; Complete Time: 10:49 rn 06/11 10:21 Order name: Labs collected and sent; Complete Time: 10:49 rn 06/11 10:21 Order name: O2 Per Protocol; Complete Time: 10:25 rn 06/11 10:21 Order name: O2 Sat Monitoring; Complete Time: 10:25 rn 06/11 10:21 Order name: Vital Signs; Complete Time: 10:49 rn EC:27 Rate is 153 beats/min. Rhythm is regular. QRS [place] is Normal. QRS interval is normal. rn QT interval is normal. No Q waves. ST Segment is depressed in leads V3, V4, V5, V6. Clinical impression: SVT. Interpreted by me. Reviewed by me. Administered Medications: 10:35 Drug: Magnesium Sulfate IVPB 1 grams Route: IVPB; Infused Over: 1 hrs; Site: right iw forearm; 10:44 Drug: Levalbuterol Inhalation 1.25 mg Route: Inhalation; iw 10:44 Drug: Ondansetron IVP 4 mg Route: IVP; Site: left wrist; iw 10:51 Drug: amiodarone IVPB 150 mg Volume: 100 ml; Route: IVPB; Infused Over: 10 mins; Site: iw right forearm; 10:55 Drug: MethylPrednisoLONE IVP 125 mg Route: IVP; Site: left forearm; ko1 10:55 Drug: Levalbuterol Inhalation 1.25 mg Route: Inhalation; ko1 11:05 Drug: amiodarone IVPB 900 mg, D5W IV 500 ml Route: IVPB; Rate: 1 mg/min; Site: left iw wrist; 11:22 Drug: Enoxaparin Sub-Q 1 mg/kg Route: Sub-Q; Site: abdomen; iw 11:33 Drug: NS 0.9% IV (30 ml/kg) 30 ml/kg Route: IV; Rate: bolus; Site: right forearm; ld1 14:19 Not Given (Physician Discretion): Adenocard IVP 6 mg IVP once ld1 Disposition: 12:01 Critical Care:. rn Disposition Summary: 06/11/22 12:03 Hospitalization Ordered Hospitalization Status: Inpatient Admission rn Provider: Rafael Davey rn Condition: Stable rn Problem: new rn Symptoms: have improved rn Bed/Room Type: Standard rn Location: Intensive Care Unit(06/11/22 14:15) dw Room Assignment: 1-(06/11/22 14:17) dw Diagnosis - COPD/ Chronic obstructive pulmonary disease with (acute) exacerbation rn - Supraventricular tachycardia rn - Hypotension, unspecified rn Forms: - Medication Reconciliation Form rn - SBAR form rn pool time excluding procedures: 12:01 Critical care time: Bedside Care: 35 minutes. Total time: 35 minutes rn Signatures: Dispatcher [employer] Shannon Baca RN RN Buffy Burgess RN Que Welch MD MD rn Sims, Lauren, RN RN ld1 Daisha Becerra, RN RN ko1 Corrections: (The following items were deleted from the chart) 14:10 12:03 rn dw 14:15 12:03 Telemetry/MedSurg (Inpatient) rn dw 14:15 14:10 414 dw dw 14:17 14:15 dw dw
--- NOTE | 2022-06-11 12:03 | ER ---
Nurse's Notes [facility] Krista Name: Jose Marcelino Age: 72 yrs Sex: Male : 1950 Arrival Date: 06/11/2022 Time: 10:18 Bed 3 Private MD: Diagnosis: COPD/ Chronic obstructive pulmonary disease with (acute) exacerbation;Supraventricular tachycardia;Hypotension, unspecified Presentation: 06/11 10:30 Chief complaint: EMS states: called out for SOB, Afib at 150's , pale diaphoretic. iw 10:49 Coronavirus screen: Client presents with at least one sign or symptom that may indicate iw coronavirus-19. Ebola Screen: Patient negative for fever greater than or equal to 101.5 degrees Fahrenheit, and additional compatible Ebola Virus Disease symptoms Patient denies exposure to infectious person. Patient denies travel to an Ebola-affected area in the 21 days before illness onset. No symptoms or risks identified at this time. 10:49 Method Of Arrival: EMS: [facility] iw 10:49 Acuity: [facility] 2 iw 11:09 Initial Sepsis Screen: Does the patient meet any 2 criteria? No. Patient's initial iw sepsis screen is negative. Does the patient have a suspected source of infection? No. Patient's initial sepsis screen is negative. Initial Sepsis Screen: Does the patient meet any 2 criteria?. Risk Assessment: Do you want to hurt yourself or someone else? Patient reports no desire to harm self or others. Onset of symptoms was June 11, 2022. Triage Assessment: 11:09 General: Appears distressed, uncomfortable, Behavior is cooperative, anxious. iw Historical: - Allergies: 10:46 Atrovent; iw - PMHx: 10:46 Chronic obstructive lung disease; diabetes mellitus; Hypertensive disorder; iw - Immunization history:: Adult Immunizations up to date, Client reports receiving the 2nd dose of the Covid vaccine. - Social history:: Smoking status: Patient reports the use of cigarette tobacco products, Patient/guardian denies using. - Family history:: not pertinent. - Hospitalizations: : Patient was recently seen at. Screenin:52 [facility] ED Fall Risk Assessment (Adult) History of falling in the last 3 months, iw including since admission. Abuse screen: Denies threats or abuse. Denies injuries from another. Nutritional screening: No deficits noted. Tuberculosis screening: No symptoms or risk factors identified. Assessment: 10:23 Reassessment: ERP at bedside with patient. iw 10:23 General: Appears distressed, uncomfortable, Behavior is cooperative, anxious. Pain: iw Denies pain. Neuro: Level of Consciousness is awake, alert, obeys commands, Oriented to person, place, time, situation. Cardiovascular: Capillary refill Patient's skin is warm and dry. Rhythm is SVT. Respiratory: Airway is patent Respiratory effort is even, labored. GI: Abdomen is round non-distended. : No signs and/or symptoms were reported regarding the genitourinary system. EENT: No signs and/or symptoms were reported regarding the EENT system. Derm: No signs and/or symptoms reported regarding the dermatologic system. Musculoskeletal: No signs and/or symptoms reported regarding the musculoskeletal system. 11:07 Reassessment: 2nd EKG completed with ERP at bedside. 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 rn 10:20 Que Fuentes MD is Attending Physician. rn 10:34 Inserted saline lock: 20 gauge in right forearm, using aseptic technique. iw 10:38 Inserted saline lock: 22 gauge in left wrist, using aseptic technique. iw 10:49 Triage completed. iw 10:49 Troponin High Sensitivity Sent. ko1 10:49 BNP Sent. ko1 10:49 Flu Sent. ko1 10:49 COVID-19 SARS RT PCR Sent. ko1 10:49 ABG Sent. ko1 10:49 CBC with Diff Sent. ko1 10:49 CMP Sent. ko1 10:49 Lactate w/ 2H reflex if indic. Sent. ko1 10:49 Protime (+inr) Sent. ko1 10:49 Ptt, Activated Sent. ko1 10:52 Patient has correct armband on for positive identification. Placed in gown. Client iw placed on continuous cardiac and pulse oximetry monitoring. NIBP monitoring applied. 10:55 Flu Sent. iw 10:55 COVID-19 SARS RT PCR Sent. iw 11:01 Chest Single View XRAY In Process Unspecified. EDMS 11:09 Arm band placed on right wrist. iw 11:35 Janessa Hill, RN is Primary Nurse. ld1 11:37 BIPAP Sent. ko1 11:37 CBC with Diff Sent. ko1 11:37 Manual Differential Sent. ko1 12:02 Rafael Davey is Hospitalizing Provider. rn 13:26 Kiana Devine MD is Hospitalizing Provider. rn 15:18 No provider procedures requiring assistance completed. ko1 15:19 Patient admitted, IV remains in place. ko1 Administered Medications: 10:35 Drug: Magnesium Sulfate IVPB 1 grams Route: IVPB; Infused Over: 1 hrs; Site: right iw forearm; 10:44 Drug: Levalbuterol Inhalation 1.25 mg Route: Inhalation; iw 10:44 Drug: Ondansetron IVP 4 mg Route: IVP; Site: left wrist; iw 10:51 Drug: amiodarone IVPB 150 mg Volume: 100 ml; Route: IVPB; Infused Over: 10 mins; Site: iw right forearm; 10:55 Drug: MethylPrednisoLONE IVP 125 mg Route: IVP; Site: left forearm; ko1 10:55 Drug: Levalbuterol Inhalation 1.25 mg Route: Inhalation; ko1 11:05 Drug: amiodarone IVPB 900 mg, D5W IV 500 ml Route: IVPB; Rate: 1 mg/min; Site: left iw wrist; 11:22 Drug: Enoxaparin Sub-Q 1 mg/kg Route: Sub-Q; Site: abdomen; iw 11:33 Drug: NS 0.9% IV (30 ml/kg) 30 ml/kg Route: IV; Rate: bolus; Site: right forearm; ld1 14:19 Not Given (Physician Discretion): Adenocard IVP 6 mg IVP once ld1 Medication: 15:19 VIS not applicable for this client. ko1 Outcome: 12:03 Decision to Hospitalize by Provider. rn 15:18 Admitted to ICU accompanied by nurse, via stretcher, room 8, with oxygen, on monitor, ko1 with chart, Report called to RAMON Alas 15:18 Condition: improved 15:18 Instructed on the need for admit. 15:38 Patient left the ED. ko1 Signatures: Dispatcher [employer] Buffy Mujica RN RN iw Que Fuentes MD MD rn Sims, Lauren, RN RN ld1 Daisha Becerra RN RN ko1 Corrections: (The following items were deleted from the chart) 10:46 10:34 Inserted saline lock: 22 gauge in right forearm, using aseptic technique. iw iw 10:46 10:34 Inserted iw iw
[2022-06-11] MEDS ORDERED: ACETAMINOPHEN 500 MG TAB PO PRN (13:46)
[2022-06-11] MEDS ORDERED: ONDANSETRON 4 MG/2 ML VIAL IV PRN (13:46)
[2022-06-11] MEDS ORDERED: LOPERAMIDE HCL 2 MG CAPSULE PO STA (13:47)
[2022-06-11] MEDS: METHYLPREDNISOLONE 125 MG INJ IV SCH ×2 (14:00→17:36)
[2022-06-11] MEDS ORDERED: AMIODARONE HCL 900 MG in Dextrose 5%-Water 482 ML IV SCH (17:00)
[2022-06-11] MEDS: NA CHLORIDE 0.9% 1,000 ML IV SCH (17:36)
[2022-06-11] MEDS: HYDROCODONE/APAP 5/325 MG TAB PO PRN (22:24)
[2022-06-11] MEDS ORDERED: ALBUTEROL IH PRN (22:27)
[2022-06-11] MEDS ORDERED: PREGABALIN 50 MG CAP PO ONE (22:30)
[2022-06-11] MEDS: NICOTINE 14 MG/PAT TD SCH (23:14)
[2022-06-12] MEDS: IPRATROPIUM BROM 0.5MG/2.5ML IH SCH ×3 (00:20→07:10)
[2022-06-12] MEDS: ALBUTEROL 2.5 MG/3 ML NEB SOL IH SCH ×3 (00:20→14:05)
[2022-06-12] MEDS: METHYLPREDNISOLONE 125 MG INJ IV SCH ×5 (01:00→23:13)
[2022-06-12 05:30] LABS: RBC Red Blood Cell Count 3.68 M/uL (4.33-5.43)
[2022-06-12 05:31] LABS: Absolute Lymphocytes (CBC) 0.9 K/uL (0.7-4.9); Hematocrit 32.4 % (39.6-49.0); Lymphocytes % 5.3 % (15.3-44.8); MCV 87.6 fL (80-100); MPV 6.9 fL (7.6-11.3)
[2022-06-12 05:44] LABS: Protime INR 1.07
[2022-06-12] MEDS: NA CHLORIDE 0.9% 1,000 ML IV SCH (05:53)
[2022-06-12 06:00] LABS: Albumin 2.7 g/dL (3.4-5.0); Bilirubin Total 0.2 mg/dL (0.2-1.0); Magnesium 1.9 mg/dL (1.6-2.4); Potassium 4.2 mEq/L (3.5-5.1); Protein, Total 5.8 g/dL (6.4-8.2); Thyroid Stimulating Hormone 0.316 uIU/mL (0.358-3.740)
[2022-06-12 06:01] LABS: Troponin High Sensitivity 173.4 pg/mL (<58.9)
[2022-06-12] MEDS ORDERED: PNEUMOCOCCAL VACCINE 0.5 ML IMVAC ONE (08:00)
[2022-06-12] MEDS: lisinopriL 5 MG TAB PO SCH (08:17)
[2022-06-12] MEDS: SERTRALINE HCL 50 MG TAB PO SCH (08:17)
[2022-06-12] MEDS: AMIODARONE HCL 200 MG TAB PO SCH ×2 (08:18→21:11)
[2022-06-12] MEDS: METFORMIN HCL 500 MG TAB PO SCH ×2 (08:18→17:07)
--- NOTE | 2022-06-12 08:18 | P.HP ---
Certification for Inpatient Patient admitted to: Inpatient With expected LOS: >2 Midnights Patient will require the following post-hospital care: None Practitioner: I am a practitioner with admitting privileges, knowledge of patient current condition, hospital course, and medical plan of care. Services: Services provided to patient in accordance with Admission requirements found in Title 42 Section 412.3 of the Code of Federal Regulations Patient History Date of Service: 06/11/22 Reason for admission: Palpitations and shortness of breath History of Present Illness: Is a 72-year-old gentleman who presents to the emergency room with shortness of breath and palpitations. Patient states that his symptoms started about 2 to 3 days ago. Patient states whenever he has been ambulating he is getting more short of breath. He was started on oxygen. Patient had a cough and congestion. Patient also has some lightheadedness as well. Patient has been short of breath for the last few days as well as having COVID-pneumonia and COPD. Patient is heart rates were greater than 150s. Patient had atrial fibrillation with rapid ventricular response. Patient was nauseated but with no vomiting. Patient denies any chest pain. Patient had heart rate converted to sinus rhythm. Patient was slightly hypertensive on arrival but when heart rate corrected patient's blood pressure is stabilized. Patient was also found to have COVID-19. We will continue monitoring pulmonary status closely. Patient will be admitted to the hospital for further evaluation. Allergies ipratropium [From Atrovent] Allergy (Verified 06/11/22 13:50) Shortness of breath limestone Allergy (Uncoded 12/27/21 19:24) Itching/Hives/Rash Home Medications: Sertraline [Zoloft*] 100 mg PO DAILY 05/13/13 Simvastatin [Zocor*] 40 mg PO BEDTIME 05/13/13 Hydrocodone/Acetaminophen [[place] 5-325 Tablet] 1 each PO BIDP PRN 01/26/17 Triamterene/Hydrochlorothiazid [Triamterene-Hctz 37.5-25 mg Cp] 1 each PO DAILY 01/26/17 Albuterol Inhaler [Ventolin Inhaler*] 1 puff IN BID PRN 01/22/21 Fluticasone/Umeclidin/Vilanter [Trelegy Ellipta 100-62.5-25] 1 puff IN DAILY 01/22/21 Metformin HCl 1,000 tab PO BID 01/22/21 Lisinopril [Zestril] 2.5 mg PO DAILY 05/28/21 Pregabalin [Lyrica] 25 mg PO BID 05/28/21 Albuterol Neb [Proventil 0.083% Neb Soln] 2.5 mg NEB [id number] #60 amp 05/29/21 Ipratropium Neb [Atrovent*] 0.5 mg NEB [id number] #60 amp 05/29/21 Nicotine [Nicotine Patch] 1 each TD DAILY 10/22/21 Benzonatate [Tessalon Perle*] 200 mg PO TID PRN #30 cap 12/09/21 predniSONE [Prednisone*] 20 mg PO M,W,F 12/27/21 predniSONE [Deltasone*] 10 mg PO T,TH,S 06/11/22 - Past Medical/Surgical History Diabetic: Yes -: DM -: Asthma -: Arthritis -: COPD -: HTN -: HLD -: depresison -: Cyst removal from right side of neck Psychosocial/ Personal History: Patient lives at home with his son - Family History Mother Medical History: Heart disease, Diabetes Sister Medical History: Lung disease, Diabetes, Cancer Father Medical History: Lung disease, Cancer - Social History Smoking Status: Current every day smoker Alcohol use: No CD- Drugs: No Caffeine use: No Place of Residence: Home Review of Systems 10-point ROS is otherwise unremarkable Physical Examination - Vital Signs Temperature: 98.4 F Blood Pressure: 113/75 Pulse: 81 Respirations: 18 Pulse Ox (%): 96 - Physical Exam General: Alert, In no apparent distress, Oriented x3 HEENT: Atraumatic, PERRLA, Mucous membr. moist/pink, EOMI, Sclerae nonicteric Neck: Supple, 2+ carotid pulse no bruit, No LAD, Without JVD or thyroid abnormality Respiratory: Clear to auscultation bilaterally, Normal air movement Cardiovascular: No murmurs, Irregular heart rate/rhythm Gastrointestinal: Normal bowel sounds, Soft and benign, Non-distended, No tenderness Musculoskeletal: No clubbing, No swelling, No tenderness Integumentary: No rashes Neurological: Normal gait, Normal speech, Normal strength at 5/5 x4 extr, Normal tone, Sensation intact, Cranial nerves 3-12 intact, Normal affect Lymphatics: No axilla or inguinal lymphadenopathy - Studies Laboratory Data (last 24 hrs) 06/11/22 10:35: PT 12.2, INR 1.11, APTT 27.9 06/11/22 10:35: Sodium 133 L, Potassium 4.5, BUN 35 H, Creatinine 1.51 H, Glucose 138 H, Total Bilirubin 0.5, AST 16, ALT 41, Alkaline Phosphatase 78 06/11/22 10:35: WBC 16.50 H, Hgb 13.6, Hct 42.4, Plt Count 426 H Microbiology Data (last 24 hrs): 06/11/22 10:40 Nasopharnyx Influenza Type A Antigen Screen - Final 06/11/22 10:40 Nasopharnyx Influenza Type B Antigen Screen - Final Assessment & Plan - Problems (Diagnosis) (1) Atrial fibrillation with RVR Current Visit: Yes Status: Acute (2) Pneumonia due to COVID-19 virus Current Visit: Yes Status: Acute (3) Acute respiratory failure with hypoxia Current Visit: No Status: Acute (4) COPD exacerbation Current Visit: No Status: Acute (5) HLD (hyperlipidemia) Current Visit: No Status: Chronic Qualifiers: Hyperlipidemia type: unspecified Qualified Code(s): E78.5 - Hyperlipidemia, unspecified (6) HTN (hypertension) Current Visit: No Status: Chronic Qualifiers: Hypertension type: primary hypertension Qualified Code(s): I10 - Essential (primary) hypertension (7) T2DM (type 2 diabetes mellitus) Current Visit: No Status: Chronic Qualifiers: Diabetes mellitus ad terminal makeup operator insulin use: without detention use Diabetes mellitus complication status: with hyperglycemia Qualified Code(s): E11.65 - Type 2 diabetes mellitus with hyperglycemia - Plan Plan: 1. Gentle hydration 2. IV steroids 3. Continue with amiodarone drip. Switch to oral amiodarone 4. Anticoagulation 5. Continue monitoring labs and check LFTs 6. Continue with nebs and echocardiogram pending 7. Physical therapy evaluation 8. Discussed with patient regarding discharge planning Discharge Plan: Home Plan to discharge in: Greater than 2 days - Advance Directives Does patient have a Living Will: No Does patient have a Durable POA for Healthcare: No - Code Status/Comfort Care Code Status Assessed: Yes Code Status: Full Code Critical Care: Yes Time Spent Managing PTS Care (In Minutes): 55
--- NOTE | 2022-06-12 08:22 | P.HP ---
Patient History Allergies ipratropium [From Atrovent] Allergy (Verified 06/11/22 13:50) Shortness of breath limestone Allergy (Uncoded 12/27/21 19:24) Itching/Hives/Rash Home Medications: Sertraline [Zoloft*] 100 mg PO DAILY 05/13/13 Simvastatin [Zocor*] 40 mg PO BEDTIME 05/13/13 Hydrocodone/Acetaminophen [[place] 5-325 Tablet] 1 each PO BIDP PRN 01/26/17 Triamterene/Hydrochlorothiazid [Triamterene-Hctz 37.5-25 mg Cp] 1 each PO DAILY 01/26/17 Albuterol Inhaler [Ventolin Inhaler*] 1 puff IN BID PRN 01/22/21 Fluticasone/Umeclidin/Vilanter [Trelegy Ellipta 100-62.5-25] 1 puff IN DAILY 01/22/21 Metformin HCl 1,000 tab PO BID 01/22/21 Lisinopril [Zestril] 2.5 mg PO DAILY 05/28/21 Pregabalin [Lyrica] 25 mg PO BID 05/28/21 Albuterol Neb [Proventil 0.083% Neb Soln] 2.5 mg NEB [id number] #60 amp 05/29/21 Ipratropium Neb [Atrovent*] 0.5 mg NEB [id number] #60 amp 05/29/21 Nicotine [Nicotine Patch] 1 each TD DAILY 10/22/21 Benzonatate [Tessalon Perle*] 200 mg PO TID PRN #30 cap 12/09/21 predniSONE [Prednisone*] 20 mg PO M,W,F 12/27/21 predniSONE [Deltasone*] 10 mg PO T,TH,S 06/11/22 - Past Medical/Surgical History Diabetic: Yes -: DM -: Asthma -: Arthritis -: COPD -: HTN -: HLD -: depresison -: Cyst removal from right side of neck Psychosocial/ Personal History: Patient lives at home with his son - Family History Mother Medical History: Heart disease, Diabetes Sister Medical History: Lung disease, Diabetes, Cancer Father Medical History: Lung disease, Cancer - Social History Smoking Status: Current every day smoker Alcohol use: No CD- Drugs: No Caffeine use: No Place of Residence: Home Physical Examination - Vital Signs Temperature: 98.4 F Blood Pressure: 113/75 Pulse: 81 Respirations: 18 Pulse Ox (%): 96 - Studies Laboratory Data (last 24 hrs) 06/11/22 10:35: PT 12.2, INR 1.11, APTT 27.9 06/11/22 10:35: Sodium 133 L, Potassium 4.5, BUN 35 H, Creatinine 1.51 H, Glucose 138 H, Total Bilirubin 0.5, AST 16, ALT 41, Alkaline Phosphatase 78 06/11/22 10:35: WBC 16.50 H, Hgb 13.6, Hct 42.4, Plt Count 426 H Microbiology Data (last 24 hrs): 06/11/22 10:40 Nasopharnyx Influenza Type A Antigen Screen - Final 06/11/22 10:40 Nasopharnyx Influenza Type B Antigen Screen - Final Assessment & Plan - Advance Directives Does patient have a Living Will: No Does patient have a Durable POA for Healthcare: No
--- NOTE | 2022-06-12 08:24 | P.PN ---
Subjective Date of Service: 06/12/22 Lactic acid remains elevated. We will go ahead and switch amiodarone drip to oral amiodarone and continue with anticoagulation. Continue monitoring LFTs closely. Review of Systems 10-point ROS is otherwise unremarkable Physical Examination - Vital Signs Temperature: 98.4 F Blood Pressure: 113/75 Pulse: 81 Respirations: 18 Pulse Ox (%): 96 - Physical Exam General: Alert, In no apparent distress, Oriented x3 Respiratory: Diminished, Expiratory wheezes Cardiovascular: Regular rate/rhythm, Normal S1 S2, No murmurs Gastrointestinal: Normal bowel sounds, Soft and benign, Non-distended, No tenderness Musculoskeletal: No clubbing, No swelling, No tenderness Neurological: Sensation intact, Cranial nerves 3-12 intact - Studies Laboratory Data (last 24 hrs) 06/11/22 10:35: PT 12.2, INR 1.11, APTT 27.9 06/11/22 10:35: Sodium 133 L, Potassium 4.5, BUN 35 H, Creatinine 1.51 H, Glucose 138 H, Total Bilirubin 0.5, AST 16, ALT 41, Alkaline Phosphatase 78 06/11/22 10:35: WBC 16.50 H, Hgb 13.6, Hct 42.4, Plt Count 426 H Microbiology Data (last 24 hrs): 06/11/22 10:40 Nasopharnyx Influenza Type A Antigen Screen - Final 06/11/22 10:40 Nasopharnyx Influenza Type B Antigen Screen - Final Medications List Reviewed: Yes Assessment & Plan - Problems (Diagnosis) (1) Atrial fibrillation with RVR Current Visit: Yes Status: Acute (2) Pneumonia due to COVID-19 virus Current Visit: Yes Status: Acute (3) Acute respiratory failure with hypoxia Current Visit: No Status: Acute (4) COPD exacerbation Current Visit: No Status: Acute (5) HLD (hyperlipidemia) Current Visit: No Status: Chronic Qualifiers: Hyperlipidemia type: unspecified Qualified Code(s): E78.5 - Hyperlipidemia, unspecified (6) HTN (hypertension) Current Visit: No Status: Chronic Qualifiers: Hypertension type: primary hypertension Qualified Code(s): I10 - Essential (primary) hypertension (7) T2DM (type 2 diabetes mellitus) Current Visit: No Status: Chronic Qualifiers: Diabetes mellitus superintendent container terminal insulin use: without chcf use Diabetes mellitus complication status: with hyperglycemia Qualified Code(s): E11.65 - Type 2 diabetes mellitus with hyperglycemia (8) Lactic acidosis Current Visit: Yes Status: Acute - Plan Plan: Continue with plan of care as mentioned below: 1. Hep-Lock IV 2. IV steroids; switch to po prednisone 3. Switch to oral amiodarone 4. Continue with anticoagulation 5. Continue monitoring labs and check LFTs 6. Continue with nebs and echocardiogram pending 7. Physical therapy evaluation completed; inpatient rehab eval 8. Monitor lactate 9. Discussed with patient regarding discharge planning Discharge Plan: Other (rehab) Plan to discharge in: Greater than 2 days - Advance Directives Does patient have a Living Will: No Does patient have a Durable POA for Healthcare: No - Code Status/Comfort Care Code Status: Full Code Critical Care: No Time Spent Managing PTS Care (In Minutes): 35
[2022-06-12] MEDS: LYRICA 25 MG PO SCH ×2 (09:00→21:00)
[2022-06-12] MEDS ORDERED: NICOTINE TD SCH (09:00)
[2022-06-12] MEDS ORDERED: HOME MED 1 EA UNK (Pregabalin [Lyrica] 25 MG Capsule) PO SCH (09:00)
[2022-06-12] MEDS: NICOTINE 14 MG/PAT TD SCH (09:25)
--- NOTE | 2022-06-12 12:02 | ECHO ---
HEIGHT: 5 ft 7 in WEIGHT: 155 lb 0 oz DATE OF STUDY: 06/12/[address]: Parvez Regalado MD 2-DIMENSIONAL: YES M.MODE: YES DOPPLER: YES COLOR FLOW: YES TDS: NO PORTABLE: YES DEFINITY: NO BUBBLE STUDY: NO DIAGNOSIS: ATRIAL FIBRILLATION CARDIAC HISTORY: CATHERIZATION: NO SURGERY: NO PROSTHETIC VALVE: NO PACEMAKER: NO MEASUREMENTS (cm) DIASTOLIC (NORMALS) SYSTOLIC (NORMALS) IVSd 1.1 (0.6-1.2) LA Diam 2.8 (1.9-4.0) LVEF 69% LVIDd 3.6 (3.5-5.7) LVIDs 2.2 (2.0-3.5) %FS 38% LVPWd 1.2 (0.6-1.2) Ao Diam 2.6 (2.0-3.7) 2 DIMENSIONAL ASSESSMENT: RIGHT ATRIUM: NORMAL LEFT ATRIUM: NORMAL RIGHT VENTRICLE: NORMAL LEFT VENTRICLE: NORMAL TRICUSPID VALVE: NORMAL MITRAL VALVE: MITRAL ANNULAR CALCIFICATION PULMONIC VALVE: NORMAL AORTIC VALVE: NORMAL PERICARDIAL EFFUSION: NONE AORTIC ROOT: NORMAL LEFT VENTRICULAR WALL MOTION: GRADE I DIASTOLIC DYSFUNCTION. DOPPLER/COLOR FLOW: MILD TRICUSPID REGURGITATION. MILD PULMONARY HYPERTENSION. COMMENTS: 1. MILD PULMONARY HYPERTENSION. RIGHT VENTRICULAR SYSTOLIC PRESSURE 41 mmHg. 2. GRADE I DIASTOLIC DYSFUNCTION. 3. NORMAL LEFT ATRIAL SIZE. 4. NORMAL LEFT VENTRICULAR SIZE. 5. LEFT VENTRICULAR EJECTION FRACTION 69%. TECHNOLOGIST: Lokesh FLORIAN
--- NOTE | 2022-06-12 12:04 | CON ---
Date of Consultation: 06/12/2022 Reason For Consultation: Atrial fibrillation. History Of Present Illness: Mr. Marcelino is 72. Has a history of severe COPD, dyslipidemia, diabetes , hypertension. He is steroid dependent as far as COPD is concerned. Came in with rapid atrial fibr illation, positive COVID. He was treated with the IV amiodarone bolus and drip and by the time I saw him, he was actually back in normal rhythm. He complained of shortness of breath and palpitation bu t has no chest pain, nausea, vomiting, diaphoresis. Denied PND, orthopnea, pedal edema, or syncope. He denied fevers or chills. Past Medical History: As stated above. Allergies: INCLUDE IPRATROPIUM. Medications: At home include inhalers, Zocor, metformin, lisinopril, steroids. Review of Systems: Negative. Social History: Negative. Family History: Negative. Physical Examination: Vital Signs: Stable. Sinus rhythm. HEENT: Negative. Neck: Supple with no bruit. Chest: Reveals rales and expiratory wheezing. Cardiac: Revealed the aortic sclerosis murmur. Regular rhythm and rate. No gallops. No rubs. Abdomen: Benign. Extremities: Revealed 1+ edema to the knees. Diagnostic Data: Fairly unremarkable. Creatinine is 1.5. He was positive for COVID. Impression And Plan: Rapid atrial fibrillation, resolved, on IV amiodarone. I think we will switch him to p.o. amiodarone. Echocardiogram is pending. I think he will need an outpatient Lexiscan down the road. He needs his COVID treated. I think I will treat him with antibiotics as well. Continue his usual treatment for his blood pressure and diabetes. His amiodarone dose will be p.o. 400 mg b. i.d. He will need to have that for a week, after which we will switch to 200 mg daily. He should be on anticoagulants, preferably Eliquis, but I will leave that up to Dr. Devine. I will continue to fol low after the echo. YENI/RIZWAN Voice ID: [id number] Report ID: [id number]
[2022-06-12] MEDS: LEVALBUTEROL 1.25 MG/3 ML NEB NEB SCH (20:30)
[2022-06-12] MEDS: ATORVASTATIN 20 MG TAB PO SCH (21:11)
[2022-06-12] MEDS: PREGABALIN 50 MG CAP PO SCH (21:11)
[2022-06-12] MEDS: HYDROCODONE/APAP 5/325 MG TAB PO PRN (21:11)
[2022-06-13] MEDS: LEVALBUTEROL 1.25 MG/3 ML NEB NEB SCH ×4 (01:35→19:45)
[2022-06-13] MEDS: METHYLPREDNISOLONE 125 MG INJ IV SCH ×3 (06:16→17:08)
--- NOTE | 2022-06-13 07:13 | EKG ---
Test Date: 2022-06-11 Test Time: 11:07:06 Monotypist: Kiya MORE MEASUREMENT RESULTS: Intervals: Rate: 95 [place]: 170 QRSD: 130 QT: 364 QTc: 457 [place]: P: 74 [place]: 170 QRS: 57 T: 70 INTERPRETIVE STATEMENTS: Sinus rhythm with occasional and consecutive premature ventricular complexes Right bundle branch block Abnormal ECG Compared to ECG 06/04/2022 17:06:14 Ventricular premature complex(es) now present Sinus arrhythmia no longer present Electronically Signed On 06-13-22 07:09:57 CDT by Parvez Regalado
--- NOTE | 2022-06-13 07:14 | EKG ---
Test Date: 2022-06-11 Test Time: 10:24:16 Legal Transcriptionist: Kiya MORE MEASUREMENT RESULTS: Intervals: Rate: 153 [place]: QRSD: 108 QT: 312 QTc: 498 [place]: P: [place]: QRS: 89 T: 77 INTERPRETIVE STATEMENTS: Supraventricular tachycardia with occasional premature ventricular complexes Right bundle branch block Abnormal ECG Compared to ECG 06/04/2022 17:06:14 Ventricular premature complex(es) now present Sinus rhythm no longer present Sinus arrhythmia no longer present Electronically Signed On 06-13-22 07:09:58 CDT by Parvez Regalado
[2022-06-13] MEDS: SERTRALINE HCL 50 MG TAB PO SCH (08:16)
[2022-06-13] MEDS: METFORMIN HCL 500 MG TAB PO SCH ×2 (08:16→17:08)
[2022-06-13] MEDS: AMIODARONE HCL 200 MG TAB PO SCH ×2 (08:16→22:01)
[2022-06-13] MEDS: NICOTINE 14 MG/PAT TD SCH (08:17)
[2022-06-13] MEDS: PREGABALIN 50 MG CAP PO SCH ×2 (08:17→22:02)
[2022-06-13] MEDS: lisinopriL 5 MG TAB PO SCH (08:18)
[2022-06-13] MEDS: APIXABAN 2.5 MG TABLET PO SCH ×2 (08:18→22:01)
[2022-06-13] MEDS: LYRICA 25 MG PO SCH ×2 (09:00→21:00)
[2022-06-13 10:23] LABS: Specific Gravity 1.019 (1.005-1.030); Urine Bacteria <20 /HPF (<20); Urine Bilirubin NEGATIVE (Negative); Urine Blood Negative (Negative); Urine Clarity Turbid (Clear); Urine Color Light-Yellow (Yellow); Urine Glucose NEGATIVE (Negative); Urine Protein TRACE (Negative); Urine RBC >50 /HPF (None Seen); Urine Urobilinogen Normal (Normal); Urine Yeast with Hyphae Many /HPF (None Seen); Urine pH 5.5 (5.0-7.0)
--- NOTE | 2022-06-13 15:25 | PN ---
Date of Progress Note: 06/13/2022 Mr. Marcelino has been followed for new onset atrial fibrillation that resolved in normal rhythm on p.o . amiodarone, now. He remains on p.o. amiodarone. Eliquis has been started at 2.5 mg b.i.d. He has COPD that is severe, diabetes, dyslipidemia. He has positive COVID. He has hypertension that is pr thanh well controlled. Echocardiogram showed right ventricular systolic pressure of 41 mmHg, grade 1 diastolic dysfunction, normal ejection fraction. O2 saturation today is 99% and his vital signs are stable. He is in sinus rhythm. Continue present regimen. Agree with amiodarone p.o. He will need 400 b.i.d. for a total of a week after which it will be 200 daily. Continue Eliquis. Can certainly move to telemetry whenever it is okay with admitting physician. We will continue to follow him. YENI/RIZWAN Voice ID: [id number] Report ID: [id number]
[2022-06-13] MEDS: ATORVASTATIN 20 MG TAB PO SCH (22:02)
[2022-06-13] MEDS: HYDROCODONE/APAP 5/325 MG TAB PO PRN (22:26)
[2022-06-14] MEDS: LEVALBUTEROL 1.25 MG/3 ML NEB NEB SCH ×4 (01:55→19:50)
[2022-06-14 05:02] LABS: Magnesium 1.6 mg/dL (1.6-2.4); Phosphorus 2.7 mg/dL (2.5-4.9); Potassium 4.2 mEq/L (3.5-5.1)
[2022-06-14] MEDS: METHYLPREDNISOLONE 125 MG INJ IV SCH ×3 (06:10→11:22)
[2022-06-14 07:13] VITALS: BMI 24.1
[2022-06-14 07:38] LABS: Absolute Lymphocytes (CBC) 0.5 K/uL (0.7-4.9); Hematocrit 30.5 % (39.6-49.0); Lymphocytes % 3.4 % (15.3-44.8); MCV 88.8 fL (80-100); MPV 6.7 fL (7.6-11.3); RBC Red Blood Cell Count 3.43 M/uL (4.33-5.43)
[2022-06-14] MEDS: LYRICA 25 MG PO SCH ×2 (08:28→20:48)
[2022-06-14] MEDS: AMIODARONE HCL 200 MG TAB PO SCH ×2 (08:30→20:45)
[2022-06-14] MEDS: PREGABALIN 50 MG CAP PO SCH ×2 (08:30→20:46)
[2022-06-14] MEDS: NICOTINE 14 MG/PAT TD SCH (08:30)
[2022-06-14] MEDS: APIXABAN 2.5 MG TABLET PO SCH ×2 (08:30→20:46)
[2022-06-14] MEDS: METFORMIN HCL 500 MG TAB PO SCH (08:30)
[2022-06-14] MEDS: SERTRALINE HCL 50 MG TAB PO SCH (08:31)
[2022-06-14] MEDS: lisinopriL 5 MG TAB PO SCH (08:31)
--- NOTE | 2022-06-14 16:37 | P.PN ---
Date of Service: 06/13/22 Subjective Patient is improved. He states he is breathing better. He has started working with physical therapy but he does get really fatigued and short of breath quite quickly. We will continue with physical therapy. Continue with medication for rate control with amiodarone. Strict blood pressure and blood sugar control. Physical Examination - Vital Signs reviewed - Physical Exam General: Alert, In no apparent distress, Oriented x3 Respiratory: Diminished, Expiratory wheezes Cardiovascular: Regular rate/rhythm, Normal S1 S2, No murmurs Gastrointestinal: Normal bowel sounds, Soft and benign, Non-distended, No tenderness Musculoskeletal: No clubbing, No swelling, No tenderness Neurological: Sensation intact, Cranial nerves 3-12 intact Assessment & Plan - Problems (Diagnosis) (1) Atrial fibrillation with RVR Current Visit: Yes Status: Acute (2) Pneumonia due to COVID-19 virus Current Visit: Yes Status: Acute (3) Acute respiratory failure with hypoxia Current Visit: No Status: Acute (4) COPD exacerbation Current Visit: No Status: Acute (5) HLD (hyperlipidemia) Current Visit: No Status: Chronic Qualifiers: Hyperlipidemia type: unspecified Qualified Code(s): E78.5 - Hyperlipidemia, unspecified (6) HTN (hypertension) Current Visit: No Status: Chronic Hypertension type: primary hypertension Qualified Code(s): I10 - Essential (primary) hypertension (7) T2DM (type 2 diabetes mellitus) Current Visit: No Status: Chronic Diabetes mellitus bed bug exterminator insulin use: without bed bug exterminator use Diabetes mellitus complication status: with hyperglycemia Qualified Code(s): E11.65 - Type 2 diabetes mellitus with hyperglycemia (8) Lactic acidosis Current Visit: Yes Status: Acute - Plan Continue with plan of care as mentioned below: 1. Hep-Lock IV 2. IV steroids; switch to po prednisone 3. Continue on oral amiodarone 4. Continue with anticoagulation 5. Continue monitoring labs and check LFTs; lactate pending 6. Continue with nebs and echocardiogram 7. Physical therapy evaluation completed; inpatient rehab eval 8. Discussed with patient regarding discharge planning Discharge Plan: Other (rehab) Plan to discharge in: Greater than 2 days - Advance Directives Does patient have a Living Will: No Does patient have a Durable POA for Healthcare: No - Code Status/Comfort Care Code Status: Full Code Critical Care: No Time Spent Managing PTS Care (In Minutes): 35
--- NOTE | 2022-06-14 16:42 | P.PN ---
Date of Service: 06/14/22 Subjective Patient continues to improve. Is clinically doing well. Denies any complaints. Worked well with physical therapy. Patient wants to try to get into inpatient rehabilitation. Physical Examination - Vital Signs reviewed - Physical Exam General: Alert, In no apparent distress, Oriented x3 Respiratory: Diminished, End expiratory wheezes Cardiovascular: Regular rate/rhythm, Normal S1 S2, No murmurs Gastrointestinal: Normal bowel sounds, Soft and benign, Non-distended, No tenderness Musculoskeletal: No clubbing, No swelling, No tenderness Neurological: Sensation intact, Cranial nerves 3-12 intact Assessment & Plan - Problems (Diagnosis) (1) Atrial fibrillation with RVR Current Visit: Yes Status: Acute (2) Pneumonia due to COVID-19 virus Current Visit: Yes Status: Acute (3) Acute respiratory failure with hypoxia Current Visit: No Status: Acute (4) COPD exacerbation Current Visit: No Status: Acute (5) HLD (hyperlipidemia) Current Visit: No Status: Chronic Qualifiers: Hyperlipidemia type: unspecified Qualified Code(s): E78.5 - Hyperlipidemia, unspecified (6) HTN (hypertension) Current Visit: No Status: Chronic Hypertension type: primary hypertension Qualified Code(s): I10 - Essential (primary) hypertension (7) T2DM (type 2 diabetes mellitus) Current Visit: No Status: Chronic Diabetes mellitus group home insulin use: without group home use Diabetes mellitus complication status: with hyperglycemia Qualified Code(s): E11.65 - Type 2 diabetes mellitus with hyperglycemia (8) Lactic acidosis Current Visit: Yes Status: Acute - Plan Continue with plan of care as mentioned below: 1. Hep-Lock IV 2. IV steroids; switch to po prednisone 3. Continue on oral amiodarone 4. Continue with anticoagulation 5. Continue monitoring labs and check LFTs; lactate pending 6. Continue with nebs and echocardiogram 7. Physical therapy evaluation completed; inpatient rehab eval 8. Discussed with patient regarding discharge planning Discharge Plan: Other (rehab) Plan to discharge in: Greater than 2 days - Advance Directives Does patient have a Living Will: No Does patient have a Durable POA for Healthcare: No - Code Status/Comfort Care Code Status: Full Code Critical Care: No Time Spent Managing PTS Care (In Minutes): 35
[2022-06-14] MEDS: ATORVASTATIN 20 MG TAB PO SCH (20:45)
[2022-06-14] MEDS: BENZONATATE 100 MG CAP PO PRN (20:46)
[2022-06-14] MEDS: HYDROCODONE/APAP 5/325 MG TAB PO PRN (20:47)
[2022-06-14] MEDS: predniSONE 20 MG TAB PO SCH (20:55)
[2022-06-15] MEDS: LEVALBUTEROL 1.25 MG/3 ML NEB NEB SCH ×4 (01:45→19:15)
[2022-06-15 06:44] LABS: ALT/SGPT 25 U/L (16-61); AST/SGOT 10 U/L (15-37); Albumin 2.9 g/dL (3.4-5.0); Alkaline Phosphatase 57 U/L (45-117); BUN Blood Urea Nitrogen 36 mg/dL (7-18); Bicarbonate 28 mEq/L (21-32); Bilirubin Total 0.2 mg/dL (0.2-1.0); Glomerular Filtration Rate 70 ml/min (=/>90); Glucose Level 194 mg/dL (74-106); Magnesium 1.8 mg/dL (1.6-2.4); Phosphorus 2.7 mg/dL (2.5-4.9); Potassium 4.5 mEq/L (3.5-5.1); Protein, Total 5.5 g/dL (6.4-8.2); Sodium Level 136 mEq/L (136-145)
[2022-06-15 06:47] LABS: Bilirubin Direct < 0.1 mg/dL (0-0.2)
[2022-06-15] MEDS: LYRICA 25 MG PO SCH ×2 (07:16→21:00)
[2022-06-15] MEDS ORDERED: MAGNESIUM SULFATE 1 gm IVPB 1 GM/100 ML BAG IV ONE (09:00)
[2022-06-15] MEDS: BENZONATATE 100 MG CAP PO PRN (09:10)
[2022-06-15] MEDS: NICOTINE 14 MG/PAT TD SCH (09:10)
[2022-06-15] MEDS: AMIODARONE HCL 200 MG TAB PO SCH ×2 (09:11→21:14)
[2022-06-15] MEDS: lisinopriL 5 MG TAB PO SCH (09:11)
[2022-06-15] MEDS: PREGABALIN 50 MG CAP PO SCH ×2 (09:11→21:14)
[2022-06-15] MEDS: SERTRALINE HCL 50 MG TAB PO SCH (09:12)
[2022-06-15] MEDS: predniSONE 20 MG TAB PO SCH ×2 (09:12→21:14)
[2022-06-15] MEDS: APIXABAN 2.5 MG TABLET PO SCH ×2 (09:12→21:14)
[2022-06-15] MEDS: GLIMEPIRIDE 2 MG TABLET PO SCH (09:12)
--- NOTE | 2022-06-15 11:40 | P.PN ---
Subjective Date of Service: 06/15/22 Chief Complaint: Palpitations and shortness of breath No acute events overnight. He reports that his shortness of breath is unchanged compared to yesterday. He denies any chest pain or palpitations. He states that the plan was for him to go to inpatient rehab. Appreciate CM assistance. Review of Systems 10-point ROS is otherwise unremarkable Respiratory: Cough, Shortness of Breath Physical Examination - Vital Signs Temperature: 97.4 F Blood Pressure: 166/70 Pulse: 84 Respirations: 20 Pulse Ox (%): 99 - Physical Exam General: Alert, In no apparent distress, Oriented x3 HEENT: Atraumatic, Mucous membr. moist/pink, Sclerae nonicteric Neck: JVD not distended Respiratory: Diminished, Rhonchi/gurgles Cardiovascular: No edema, Regular rate/rhythm, Normal S1 S2, No gallops, No rubs, No murmurs Gastrointestinal: Normal bowel sounds, Soft and benign, Non-distended, No tenderness, No rebound, No guarding Musculoskeletal: No clubbing Integumentary: No rashes Neurological: Normal speech, Normal affect - Studies Medications List Reviewed: Yes Assessment And Plan - Plan # Acute Chronic Obstructive Pulmonary Disease Exacerbation # Acute on Chronic Hypoxic Respiratory Failure on Home Oxygen # Viral Sepsis secondary to COVID-19 Pneumonia # Suspect Type B Lactic Acidosis due to Bronchodilator Use - Evaluation thus far: - CXR = "partial resolution in right basilar lung opacities which are mild. Lungs are moderately hyperaerated. Heart is normal size." - Plan: - Pulmonology consulted and spoke with Dr. Caldwell - recommendations appreciated - Bronchodilators and steroids per Pulm - Consulted Respiratory Therapy - Supplemental oxygen to maintain SpO2 > 92% - Encouraged incentive spirometry - Isolation precautions # Paroxysmal Atrial Fibrillation with Rapid Ventricular Response - resolved # Suspect Type II Non-ST Segment Elevation Myocardial Infarction (Demand Ischemia) due to above # Chronic Compensated Diastolic Congestive Heart Failure with Preserved Ejection Fraction # Hypertension # Hyperlipidemia # Mild Pulmonary Hypertension # Subclinical Hyperthyroidism His [id number] = 3 (HTN=1, DM=1, Age 65-74=1), which warrants anticoagulation. - Evaluation thus far: - Troponin = 41.7 -> 173.4 - CXR = "partial resolution in right basilar lung opacities which are mild. Lungs are moderately hyperaerated. Heart is normal size." - Potassium = 4.5, Magnesium = 1.8 - Target K> 4, Mg >2 - TSH = 0.316 - NT-Pro BNP = 2430 - Transthoracic echocardiogram = "1. mild pulmonary hypertension. right ventricular systolic pressure 41 mmHg. 2. grade I diastolic dysfunction. 3. normal left atrial size. 4. normal left ventricular size. 5. left ventricular ejection fraction 69%." - Management plan: - Consulted Cardiology and spoke with Dr. Regalado - recommendations appreciated - Continue amiodarone, apixaban # Hyperglycemia in Type II Diabetes Mellitus - Continue correction scale insulin - Continue home glimepiride # Rtana Albicans Urinary Tract Infection - Started fluconazole # Depression - Continue home sertraline # Deconditioning - PT consulted Connor Weinstein M.D.
--- NOTE | 2022-06-15 12:44 | PN ---
Date of Progress Note: 06/14/2022 Mr. Marcelino remains in sinus rhythm. He has been followed for new onset atrial fibrillation, diastol ic dysfunction, COPD, pulmonary hypertension, hypertension, COVID, and dyslipidemia. His COVID is im proved. He is on the regular floor. He is in sinus rhythm, adequate O2 saturation. He remains on E liquis and p.o. amiodarone. He will need a full 7 days worth of p.o. amiodarone 400 b.i.d. after whi ch we need to go to 200 mg daily. I will sign off his case for now. YENI/RIZWAN Voice ID: [id number] Report ID: [id number]
[2022-06-15] MEDS: FLUCONAZOLE 100 MG TAB PO SCH (15:31)
[2022-06-15] MEDS: HYDROCODONE/APAP 5/325 MG TAB PO PRN (21:13)
[2022-06-15] MEDS: ATORVASTATIN 20 MG TAB PO SCH (21:13)
[2022-06-16] MEDS: LEVALBUTEROL 1.25 MG/3 ML NEB NEB SCH ×4 (01:08→20:00)
[2022-06-16 06:42] LABS: Absolute Lymphocytes (CBC) 0.6 K/uL (0.7-4.9); Hematocrit 31.1 % (39.6-49.0); Lymphocytes % 4.3 % (15.3-44.8); MCV 87.7 fL (80-100); MPV 6.9 fL (7.6-11.3); RBC Red Blood Cell Count 3.54 M/uL (4.33-5.43)
[2022-06-16 08:25] LABS: Blood Morphology Comment NOT SEEN (NOT SEEN); Platelet Estimate ADEQ; White Blood Cell Scan OK (OK)
[2022-06-16] MEDS: LYRICA 25 MG PO SCH ×2 (09:00→19:41)
[2022-06-16] MEDS: SERTRALINE HCL 50 MG TAB PO SCH (09:00)
[2022-06-16] MEDS: PREGABALIN 50 MG CAP PO SCH ×2 (10:11→21:27)
[2022-06-16] MEDS: BENZONATATE 100 MG CAP PO PRN (10:12)
[2022-06-16] MEDS: GLIMEPIRIDE 2 MG TABLET PO SCH (10:12)
[2022-06-16] MEDS: FLUCONAZOLE 100 MG TAB PO SCH (10:12)
[2022-06-16] MEDS: AMIODARONE HCL 200 MG TAB PO SCH ×2 (10:12→21:27)
[2022-06-16] MEDS: predniSONE 20 MG TAB PO SCH ×2 (10:12→21:27)
[2022-06-16] MEDS: HYDROCODONE/APAP 5/325 MG TAB PO PRN ×2 (10:12→21:27)
[2022-06-16] MEDS: lisinopriL 5 MG TAB PO SCH (10:12)
[2022-06-16] MEDS: APIXABAN 2.5 MG TABLET PO SCH ×2 (10:12→21:27)
[2022-06-16] MEDS: NICOTINE 14 MG/PAT TD SCH (10:13)
[2022-06-16] MEDS: CEFTRIAXONE 1,000 MG in NA CHLORIDE 0.9% 50 ML IVPB SCH (10:13)
--- NOTE | 2022-06-16 12:16 | P.CNS ---
Date of Consult: 06/16/22 Reason for Consult: Atrial fibrillation shortness of breath Chief Complaint: Shortness of breath History of Present Illness: Patient is 72 years of age recurrent hospital admissions been having problems since last was diagnosed with COVID transferred to [facility] discharge came back again feeling very weak shortness of breath on mild exertion denies any cough fever although he tested positive for COVID he is slightly better White count is only mildly elevated and has been vaccinated compliant with therapy Allergies ipratropium [From Atrovent] Allergy (Verified 06/11/22 13:50) Shortness of breath [place] Allergy (Uncoded 12/27/21 19:24) Itching/Hives/Rash Home Medications: Sertraline [Zoloft*] 100 mg PO DAILY 05/13/13 Simvastatin [Zocor*] 40 mg PO BEDTIME 05/13/13 Hydrocodone/Acetaminophen [[place] 5-325 Tablet] 1 each PO BIDP PRN 01/26/17 Triamterene/Hydrochlorothiazid [Triamterene-Hctz 37.5-25 mg Cp] 1 each PO DAILY 01/26/17 Albuterol Inhaler [Ventolin Inhaler*] 1 puff IN BID PRN 01/22/21 Fluticasone/Umeclidin/Vilanter [Trelegy Ellipta 100-62.5-25] 1 puff IN DAILY 01/22/21 Metformin HCl 1,000 tab PO BID 01/22/21 Lisinopril [Zestril] 2.5 mg PO DAILY 05/28/21 Pregabalin [Lyrica] 25 mg PO BID 05/28/21 Albuterol Neb [Proventil 0.083% Neb Soln] 2.5 mg NEB [id number] #60 amp 05/29/21 Ipratropium Neb [Atrovent*] 0.5 mg NEB [id number] #60 amp 05/29/21 Nicotine [Nicotine Patch] 1 each TD DAILY 10/22/21 Benzonatate [Tessalon Perle*] 200 mg PO TID PRN #30 cap 12/09/21 predniSONE [Prednisone*] 20 mg PO M,W,F 12/27/21 predniSONE [Deltasone*] 10 mg PO T,,S 06/11/22 - Past Medical/Surgical History Diabetic: Yes -: DM -: Asthma -: Arthritis -: COPD -: HTN -: HLD -: depresison -: Cyst removal from right side of neck Psychosocial/ Personal History: Patient lives at home with his son - Family History Mother Medical History: Heart disease, Diabetes Sister Medical History: Lung disease, Diabetes, Cancer Father Medical History: Lung disease, Cancer - Social History Smoking Status: Current every day smoker Alcohol use: No CD- Drugs: No Caffeine use: No Place of Residence: Home Review of Systems 10-point ROS is otherwise unremarkable General: Weakness Respiratory: Shortness of Breath Physical Examination Temp Pulse Resp BP Pulse Ox 97.1 F 72 20 176/77 H 97 06/16/22 08:00 06/16/22 08:00 06/16/22 08:00 06/16/22 08:00 06/16/22 08:00 General: Alert, Oriented x3, Mild distress Respiratory: Diminished, Expiratory wheezes Cardiovascular: No edema, Regular rate/rhythm Gastrointestinal: Normal bowel sounds, Soft and benign - Problems (1) COPD exacerbation Current Visit: No Status: Acute Plan: Patient is 72 years of age with a history of terminal COPD tested positive for COVID admitted with worsening dyspnea denies any cough no fever or chills compliant with trilogy chest x-ray is clear White count is mildly elevated have added Rocephin patient is mildly anemic continue with steroids vital signs are all stable stable discharge tomorrow he has prednisone at home and also consider adding an antibiotic at discharge blood pressures little elevated
--- NOTE | 2022-06-16 17:13 | P.PN ---
Subjective Date of Service: 06/16/22 Chief Complaint: Shortness of breath No acute events overnight. He reports that he feels well today; however, he experiences shortness of breath with exertion. He denies any chest pain or palpitations. He is pending placement into inpatient rehab. Appreciate CM assistance. Review of Systems 10-point ROS is otherwise unremarkable Respiratory: Cough, Shortness of Breath Physical Examination - Vital Signs Temperature: 97.7 F Blood Pressure: 164/69 Pulse: 84 Respirations: 20 Pulse Ox (%): 96 - Studies Medications List Reviewed: Yes Assessment And Plan - Plan - Physical Exam General: Alert, In no apparent distress, Oriented x3 HEENT: Atraumatic, Mucous membr. moist/pink, Sclerae nonicteric Neck: JVD not distended Respiratory: Diminished, Rhonchi/gurgles Cardiovascular: No edema, Regular rate/rhythm, No murmurs Gastrointestinal: Normal bowel sounds, Soft, Non-distended, No tenderness Musculoskeletal: No clubbing Integumentary: No rashes Neurological: Normal speech, Normal affect # Acute Chronic Obstructive Pulmonary Disease Exacerbation # Acute on Chronic Hypoxic Respiratory Failure on Home Oxygen # Viral Sepsis secondary to COVID-19 Pneumonia # Suspect Type B Lactic Acidosis due to Bronchodilator Use - Evaluation thus far: - CXR = "partial resolution in right basilar lung opacities which are mild. Lungs are moderately hyperaerated. Heart is normal size." - Plan: - Pulmonology consulted and spoke with Dr. Caldwell - recommendations appreciated - Bronchodilators and steroids per Pulm - Consulted Respiratory Therapy - Supplemental oxygen to maintain SpO2 > 92% - Encouraged incentive spirometry - Isolation precautions # Paroxysmal Atrial Fibrillation with Rapid Ventricular Response - resolved # Suspect Type II Non-ST Segment Elevation Myocardial Infarction (Demand Ischemia) due to above # Chronic Compensated Diastolic Congestive Heart Failure with Preserved Ejection Fraction # Hypertension # Hyperlipidemia # Mild Pulmonary Hypertension # Subclinical Hyperthyroidism His [id number] = 3 (HTN=1, DM=1, Age 65-74=1), which warrants anticoagulation. - Evaluation thus far: - Troponin = 41.7 -> 173.4 - CXR = "partial resolution in right basilar lung opacities which are mild. Lungs are moderately hyperaerated. Heart is normal size." - Potassium = 5.0, Magnesium = 1.8 - Target K> 4, Mg >2 - TSH = 0.316 - NT-Pro BNP = 2430 - Transthoracic echocardiogram = "1. mild pulmonary hypertension. right ventricular systolic pressure 41 mmHg. 2. grade I diastolic dysfunction. 3. normal left atrial size. 4. normal left ventricular size. 5. left ventricular ejection fraction 69%." - Management plan: - Consulted Cardiology and spoke with Dr. Regalado - recommendations appreciated - Continue amiodarone, apixaban # Hyperglycemia in Type II Diabetes Mellitus - Continue correction scale insulin - Continue home glimepiride # Ratna Albicans Urinary Tract Infection - Started fluconazole # Depression - Continue home sertraline # Deconditioning - PT consulted - Pending placement into inpatient rehab. Insurance company requested [id number], awaiting call back. Connor Weinstein M.D.
[2022-06-16] MEDS: ATORVASTATIN 20 MG TAB PO SCH (21:27)
[2022-06-16 21:43] VITALS: O2SAT 98
[2022-06-17] MEDS: LEVALBUTEROL 1.25 MG/3 ML NEB NEB SCH ×2 (01:50→08:00)
[2022-06-17 06:46] LABS: Absolute Lymphocytes (CBC) 0.9 K/uL (0.7-4.9); Hematocrit 32.4 % (39.6-49.0); Lymphocytes % 6.6 % (15.3-44.8); MCV 88.5 fL (80-100); MPV 6.7 fL (7.6-11.3); RBC Red Blood Cell Count 3.67 M/uL (4.33-5.43)
[2022-06-17 06:58] LABS: Magnesium 2.1 mg/dL (1.6-2.4); Potassium 4.6 mEq/L (3.5-5.1)
[2022-06-17] MEDS: LYRICA 25 MG PO SCH (09:00)
[2022-06-17] MEDS: SERTRALINE HCL 50 MG TAB PO SCH (09:20)
[2022-06-17] MEDS: GLIMEPIRIDE 2 MG TABLET PO SCH (09:20)
[2022-06-17] MEDS: FLUCONAZOLE 100 MG TAB PO SCH (09:20)
[2022-06-17] MEDS: HYDROCODONE/APAP 5/325 MG TAB PO PRN (09:20)
[2022-06-17] MEDS: APIXABAN 2.5 MG TABLET PO SCH (09:21)
[2022-06-17] MEDS: predniSONE 20 MG TAB PO SCH (09:21)
[2022-06-17] MEDS: lisinopriL 5 MG TAB PO SCH (09:21)
[2022-06-17] MEDS: PREGABALIN 50 MG CAP PO SCH (09:21)
[2022-06-17] MEDS: AMIODARONE HCL 200 MG TAB PO SCH (09:21)
[2022-06-17] MEDS: NICOTINE 14 MG/PAT TD SCH (09:21)
[2022-06-17] MEDS: CEFTRIAXONE 1,000 MG in NA CHLORIDE 0.9% 50 ML IVPB SCH (09:22)
[2022-06-17 11:42] VITALS: TEMP 97.3
--- NOTE | 2022-06-17 12:10 | P.PN ---
Subjective Date of Service: 06/17/22 Chief Complaint: COPD exacerbation Subjective: Improving (Patient is improving doing much better since started taking the trilogy able to ambulate) Review of Systems General: Weakness Respiratory: Cough, Shortness of Breath Physical Examination - Vital Signs Temperature: 97.3 F Blood Pressure: 183/86 Pulse: 76 Respirations: 18 Pulse Ox (%): 95 - Physical Exam General: Alert, Oriented x3 Respiratory: Clear to auscultation bilaterally, Diminished Cardiovascular: No edema, Regular rate/rhythm, Normal S1 S2 - Studies Medications List Reviewed: Yes Assessment And Plan - Current Problems (Diagnosis) (1) COPD exacerbation Current Visit: No Status: Acute Plan: Patient admitted with COPD exacerbation doing much better today labs reviewed blood pressure is mildly elevated white count is declining was started on Rocephin yesterday we can add cefuroxime 500 mg twice a day at discharge for 7 days chemistries unremarkable discharge patient does take 20 mg 3 times a week prednisone to take daily for a week
--- NOTE | 2022-06-17 12:46 | P.DS ---
Admission Date: 06/11/22 Discharge Date: 06/17/22 Disposition: ROUTINE DISCHARGE Discharge Condition: GOOD Reason for Admission: COPD exacerbation Consultations: 1. Pulmonology 2. Cardiology Hospital Course: DIAGNOSES: # Acute Chronic Obstructive Pulmonary Disease Exacerbation # Acute on Chronic Hypoxic Respiratory Failure on Home Oxygen # Viral Sepsis secondary to COVID-19 Pneumonia # Paroxysmal Atrial Fibrillation with Rapid Ventricular Response - resolved # Suspect Type II Non-ST Segment Elevation Myocardial Infarction (Demand Ischemia) due to above # Hyperglycemia in Type II Diabetes Mellitus # Ratna Albicans Urinary Tract Infection # Suspect Type B Lactic Acidosis due to Bronchodilator Use # Chronic Compensated Diastolic Congestive Heart Failure with Preserved Ejection Fraction # Hypertension # Hyperlipidemia # Mild Pulmonary Hypertension # Subclinical Hyperthyroidism # Depression # Deconditioning HOSPITAL COURSE: Mr. Jose Marcelino is a pleasant 72 year old male with a past medical history significant for chronic obstructive pulmonary disease, atrial fibrillation, diastolic congestive heart failure, hypertension, hyperlipidemia, pulmonary hypertension, type 2 diabetes mellitus, and depression who was admitted to the [facility] on 06/11/2022 for palpitations and shortness of breath. He was admitted to the Medicine service. Upon further evaluation, he was found to have atrial fibrillation with rapid ventricular response. Cardiology was consulted and he was evaluated by Dr. Regalado. He was treated with an amiodarone drip, with resolution of his atrial fibrillation. He was started on apixaban. He was also found to have a troponin leak, which Cardiology attributed to demand is chemia. Dr. Regalado has cleared him for discharge from a cardiology standpoint. Additionally, he was found to have a chronic obstructive pulmonary disease exacerbation and tested positive for COVID-19. His chest x-ray revealed, "partial resolution in right basilar lung opacities which are mild. Lungs are moderately hyperaerated. Heart is normal size." Pulmonology was consulted and he was evaluated by Dr. Caldwell. He was started on bronchodilators and steroids, and over the course of his hospitalization, his symptoms improved significantly. Dr. Caldwell has cleared him for discharge with cefuroxime, his home prednisone dose, and outpatient follow-up. Additionally, his urine culture returned positive for Ratna Albicans. He was started on fluconazole and discharged with an additional 3 days to complete the antifungal course. He was also noted to have microscopic hematuria. Although this may be secondary to the infection, he was counseled on the possibility that this may represent an underlying urologic malignancy. He does advised to follow- up with his PCP for further evaluation. He verbalized understanding and agreed to make this appointment. During his hospitalization, he experienced some deconditioning due to his acute illness and it was initially recommended that he be discharged to an inpatient rehab facility. A [id number] was requested and completed today; however, his inpatient rehab admission request was denied. When presented with this information, he stated that he would like to be discharged home with home health. With the assistance of case management, this was arranged. On 06/17/2022, he was seen on rounds and deemed medically stable for discharge. He was discharged with instructions to schedule follow-up appointments with his PCP (Dr. Maldonado), with Cardiology (Dr. Regalado), and with Pulmonology (Dr. Caldwell). He was provided prescriptions for amiodarone, fluconazole, and apixaban. He given the opportunity to ask questions and reported no further questions. Furthermore, all questions were answered to the best of my ability. A copy of this discharge summary will be sent to the above providers to facilitate continuity of care. Today, I personally spent 35 minutes on his case, of which greater than 50% of the time was spent in patient education, counseling, and coordination of care as described above. - Physical Exam General: Alert, In no apparent distress, Oriented x3 HEENT: Atraumatic, Mucous membr. moist/pink, Sclerae nonicteric Neck: JVD not distended Respiratory: Clear to auscultation bilaterally without wheezes, rhonchi, or rales Cardiovascular: No edema, Regular rate/rhythm, No murmurs Gastrointestinal: Normal bowel sounds, Soft, Non-distended, No tenderness Musculoskeletal: No clubbing Integumentary: No rashes Neurological: Normal speech, Normal affect Vital Signs/Physical Exam: Temp Pulse Resp BP Pulse Ox 97.3 F 80 18 154/77 H 95 06/17/22 12:12 06/17/22 14:11 06/17/22 12:12 06/17/22 14:11 06/17/22 12:12 Laboratory Data at Discharge: WBC 13.90 thou/uL (4.3-10.9) H 06/17/22 06:21 Hgb 10.4 g/dL (13.6-17.9) L 06/17/22 06:21 Hct 32.4 % (39.6-49.0) L 06/17/22 06:21 Plt Count 283 thou/uL (152-406) 06/17/22 06:21 PT 11.8 SECONDS (9.5-12.5) 06/12/22 05:14 INR 1.07 06/12/22 05:14 APTT 24.8 SECONDS (24.3-36.9) 06/12/22 05:14 Sodium 135 mEq/L (136-145) L 06/17/22 06:21 Potassium 4.6 mEq/L (3.5-5.1) 06/17/22 06:21 BUN 26 mg/dL (7-18) H 06/17/22 06:21 Creatinine 1.00 mg/dL (0.70-1.30) 06/17/22 06:21 Glucose 148 mg/dL (74-106) H 06/17/22 06:21 Phosphorus 2.7 mg/dL (2.5-4.9) 06/15/22 06:17 Magnesium 2.1 mg/dL (1.6-2.4) 06/17/22 06:21 Total Bilirubin 0.2 mg/dL (0.2-1.0) 06/15/22 06:17 AST 10 U/L (15-37) L 06/15/22 06:17 ALT 25 U/L (16-61) 06/15/22 06:17 Alkaline Phosphatase 57 U/L (45-117) 06/15/22 06:17 Triglycerides 148 mg/dL (<150) 06/12/22 05:14 Cholesterol 109 mg/dL (<200) 06/12/22 05:14 HDL Cholesterol 39 mg/dL (40-60) L 06/12/22 05:14 Cholesterol/HDL Ratio 2.79 06/12/22 05:14 Home Medications: Sertraline [Zoloft*] 100 mg PO DAILY 05/13/13 Simvastatin [Zocor*] 40 mg PO BEDTIME 05/13/13 Hydrocodone/Acetaminophen [[place] 5-325 Tablet] 1 each PO BIDP PRN 01/26/17 Triamterene/Hydrochlorothiazid [Triamterene-Hctz 37.5-25 mg Cp] 1 each PO DAILY 01/26/17 Albuterol Inhaler [Ventolin Inhaler*] 1 puff IN BID PRN 01/22/21 Fluticasone/Umeclidin/Vilanter [Trelegy Ellipta 100-62.5-25] 1 puff IN DAILY 01/22/21 Metformin HCl 1,000 tab PO BID 01/22/21 Lisinopril [Zestril] 2.5 mg PO DAILY 05/28/21 Pregabalin [Lyrica] 25 mg PO BID 05/28/21 Albuterol Neb [Proventil 0.083% Neb Soln] 2.5 mg NEB [id number] #60 amp 05/29/21 Ipratropium Neb [Atrovent*] 0.5 mg NEB [id number] #60 amp 05/29/21 Nicotine [Nicotine Patch] 1 each TD DAILY 10/22/21 Benzonatate [Tessalon Perle*] 200 mg PO TID PRN #30 cap 12/09/21 predniSONE [Prednisone*] 20 mg PO M,W,F 12/27/21 predniSONE [Deltasone*] 10 mg PO T,TH,S 06/11/22 Amiodarone HCl [Cordarone*] 200 mg PO BID #60 tab 06/17/22 Apixaban [Eliquis *] 2.5 mg PO BID #60 tab 06/17/22 Cefuroxime Axetil [Cefuroxime] 500 mg PO BID 7 Days #14 tab 06/17/22 Fluconazole 100 mg PO DAILY 3 Days #3 tab 06/17/22 New Medications: Cefuroxime Axetil [Cefuroxime] 500 mg PO BID 7 Days #14 tab Amiodarone HCl [Cordarone*] 200 mg PO BID #60 tab Apixaban [Eliquis *] 2.5 mg PO BID #60 tab Fluconazole 100 mg PO DAILY 3 Days #3 tab Physician Discharge Instructions: 1. Please call and schedule a follow-up appointment with your PCP (Dr. Maldonado) in 3-5 days - There was a small amount of blood in your urine. Although this can be seen with a urinary tract infection, it is important to exclude bladder/kidney cancer as the cause. Please follow this up with your PCP - Your thyroid blood work was slightly abnormal, please repeat your labs with your PCP 2. Please call and schedule a follow-up appointment with your Cardiology (Dr. Regalado) in 5-7 days 3. Please call and schedule a follow-up appointment with Pulmonology (Dr. Caldwell) in 5-7 days - Please have him repeat your chest x-ray in 2-3 weeks to make sure your pneumonia has healed Per Dr. Caldwell: Patient to take 20 mg a day for a week of prednisone and then every other day 20 mg antibiotics sent to the pharmacy Diet: AHA Activity: Per PT Followup: Uri Maldonado, [ACTIVE - CAN ADMIT] - Jay Caldwell MD [ACTIVE - CAN ADMIT] - Parvez Regalado MD [ACTIVE - CAN ADMIT] - Time spent managing pt's care (in minutes): 35
[2022-06-17 14:11] VITALS: BP 154/77
== END 2022-06-17 16:32 | disposition home health service (06) | DRG 871 ==
LOC: ER 10:18 → ERHOLD 13:47 → 3RD-ICU 14:35 → 4TH 06-13 15:45
PROVIDERS: ADMIT Hospitalist; ATTEND Internal Medicine
PROC: 5A09357 Assistance with Respiratory Ventilation, Less than 24 Consecutive Hours, Continuous Positive Airway Pressure (ICD-10-PCS; principal; 2022-06-11)
DX: A41.89 Other specified sepsis (principal); I21.A1 Myocardial infarction type 2; J12.82 Pneumonia due to coronavirus disease 2019; U07.1 COVID-19; J96.21 Acute and chronic respiratory failure with hypoxia; E87.20 Acidosis, unspecified; I47.1 Supraventricular tachycardia; J44.1 Chronic obstructive pulmonary disease with (acute) exacerbation; J44.0 Chronic obstructive pulmonary disease with (acute) lower respiratory infection; I50.32 Chronic diastolic (congestive) heart failure; B37.49 Other urogenital candidiasis; R65.20 Severe sepsis without septic shock; I11.0 Hypertensive heart disease with heart failure; E78.5 Hyperlipidemia, unspecified; I48.0 Paroxysmal atrial fibrillation; E05.80 Other thyrotoxicosis without thyrotoxic crisis or storm; F32.A Depression, unspecified; D64.9 Anemia, unspecified; E11.65 Type 2 diabetes mellitus with hyperglycemia; I27.20 Pulmonary hypertension, unspecified; F17.210 Nicotine dependence, cigarettes, uncomplicated; R31.29 Other microscopic hematuria; T48.6X5A Adverse effect of antiasthmatics, initial encounter; Z88.8 Allergy status to other drugs, medicaments and biological substances; Z79.84 Long term (current) use of oral hypoglycemic drugs; Z79.52 Long term (current) use of systemic steroids; Z79.899 Other long term (current) drug therapy; Z99.81 Dependence on supplemental oxygen
CPT/HCPCS: 36415; 71045; 80048; 80053; 80061; 80076; 81001; 82607; 82947; 83540; 83605; 83735; 83880; 84100; 84145; 84439; 84443; 84484; 85025; 85044; 85610; 85730; 87086; 87088; 87804; 93005; 93306; 94660; 94760; 96372; 97110; 97116; 97161; 97165; 97530; 99285; J0153; J0282; J0696; J1650; J2405; J2930; J3010; J3475; J7030; J7060; J7512; J7613; J7614; U0003

== ENCOUNTER 2022-06-19 10:56 | Emergency (ER) | payer OTHER ==
--- OUTSIDE RECORDS SUMMARY | 2022-06-19 11:03 | XMS REPORT | Continuity of Care Document ---
:1950 Author Organization [facility] t Address [address] [place] [address] [address] [place] [address] Care Team Providers Name Role Phone No, Pcp [facility] Primary Care Physician Unavailable Uri Maldonado Attending Clinician Unavailable NIKOLAS REEVES Attending Clinician Unavailable Laura Shah MD Attending Clinician Nikolas Reeves MD Attending Clinician [phone] LAURA SHAH Admitting Clinician Unavailable Payers Payer Name Policy Type Policy Number Effective Date Expiration Date S jose UNITED MEDICARE [id number] 2022 HMO 00:00:00 [place] [id number] Common HEALTHCARE [facility] Problems Condition Condition Condition Status Onset Resolution Last Treating Co mments Source Name Details Category Date Date Treatment Clinician Date Pneumonia Pneumonia Disease Active [facility] 00:00: Medical 00 Center Diabetes Diabetes Disease Recurre [facility] mellitus mellitus [facility] COPD COPD Disease Recurre [facility] (chronic (chronic [facility] obstructiv obstructiv Me dical e e Center pulmonary pulmonary disease) disease) Hypertensi Hypertensi Disease Active [facility] on [facility] [id number] COPD with Problem Com mon exacerbati [facility] Urine Urinary Problem Common incontinen incontinen Sp eliza ce ce, - [facility] unspecifie [facility] d type [facility] Chronic Chronic Problem Common back pain back pain Spir it - CHI [facility] Degenerati Degenerati Problem C tarik on of ve disc Spirit cervical disease, - [id number] Problem Common neutrophil Spirit ia - CHI [facility] Hyperglyce Hyperglyce Problem C tarik heriberto heriberto Spirit CH[facility] Benign Benign Problem Common essential essential Spir it hypertensi hypertensi - CHI on on [facility] Migraine Migraine, Problem Comm on unspecifie Spirit d, not - CHI intractabl [facility] status Medical migrainosu Center s 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 - [facility] Osteoarthr OA Problem Commo n itis (osteoarth Spirit ritis) - [facility] Tobacco Tobacco Problem Common use use Spirit disorder - [facility] Depression Depression Problem C [facility] History of H/O: CVA Problem Com mon cerebrovas (cerebrova Sp eliza cular scular - [facility] accident accident) [facility] [id number] Controlled Problem Co mmon type 2 Spirit diabetes - CHI mellitus [facility] complicati Medica l on, [place] unspecifie d whether orthotist prosthetist insulin use [id number] Thrombocyt Problem Comm on osis Spirit - [facility] [id number] Elevated Problem Com mon [id number] C-reactive [facility] protein - [facility] (CRP) [facility] Benign BPH Problem Common prostatic (benign Spirit hyperplasi prostatic - C HI a hyperplasi [facility] Prediabete Prediabete Problem C tarik s s Spirit - CHI [facility] Sciatica Sciatica Problem Commo n Spirit - CH[facility] Mixed Hyperlipid Problem Commo n hyperlipid emia, Spirit emia mixed - CH[facility] [id number] Hypercalce Problem Com mon heriberto [facility] [id number] Noncomplia Problem Co mmon nce with Spirit dietary - CHI restrictio [facility] [id number] Type 2 Problem Common diabetes Spirit mellitus - CHI with St hyperglyce [facility] Center long-term current use of insulin Allergies, Adverse Reactions, Alerts Allergy Allergy Status Severity Reaction(s) Onset Inactive Treating Comm ents Source Name Type Date Date Clinician IPRATROP Allergy Active [facility] Medical 00 Center Ipratrop Propensi Active [facility]28 [facility] [place] adverse 00:00: Medical reaction 00 Center s Social History Social Habit Start Date Stop Date Quantity Comments Source History [facility]-Med Medical Center History of tobacco Cigarette Smoker [facility] use [facility] History [facility] 2022-06-05 2022-06-[address] [facility] Transport Med 00:00:00 00:00:[address] History [facility] 2022-06-05 2022-06-[address] [facility] Housing Unable to 00:00:00 00:00:00 Medical Center Pay History [facility] 2022-06-05 2022-06-[address] [facility] Places 00:00:00 00:00:00 Medical Ce nter Lived History [facility] 2022-06-05 2022-06-[address] [facility] Homeless 00:00:00 00:00:00 Medical Center Last Year Cigarettes smoked 2022-06-05 2022-06-[address] [facility] current (pack per 00:00:00 00:00:00 Medical Center day) - Reported Tobacco use and 2022-06-05 2022-06-05 User of smokeless [facility] exposure 00:00:00 00:00:00 tobacco Medical Center Sex Ass[birth year] [facility] kes 00:00:00 00:00:00 Medical Center Smoking Status Start Date Stop Date Source Smokes tobacco daily 2022-06-05 00:00:00 [facility] Medications Ordered Filled Start Stop Current Ordering Indication Dosage Frequency Signature Comments Components Source Medication Medication Date Date Medication? Clinician (SIG) Name Name lisinopriL Yes 10mg QD Take 1 [facility] t (PRINIVIL,Z 5-01 tablet (10 Leandra kes ESTRIL) 10 00:00: mg total) Me dical MG tablet 00 by mouth Center in the morning. lisinopriL Yes 10mg QD Take 1 [facility] t (PRINIVIL,Z 5-01 tablet (10 Leandra kes ESTRIL) 10 00:00: mg total) Me dical MG tablet 00 by mouth Center in the morning. triamterene 2022-0 Yes 1{capsu QD Take [address] -hydroCHLOR 4-30 le} capsule by Leandra quinones Othiazide 16:51: mouth Medical (DYAZIDE) 40 every Center 37.5-25 mg morning. per capsule simvastatin 3-0 Yes 80mg QD Take [address] (ZOCOR) 80 4-30 tablet (80 Case es MG tablet 16:51: mg total) Med ical 40 by mouth Center nightly. benzonatate 2023-0 Yes 100mg Take [address] (TESSALON) 4-30 capsule [facility]ukes 100 MG 16:51: (100 mg Medical capsule 40 total) by Center mouth 3 (three) times daily as needed for Cough. HYDROcodone 2022-0 Yes pain 1{tbl} Q.5D Take [address] -acetaminop 4-30 tablet by Case es hen (NORCO 16:51: mouth in Med ical 7.5-325) 40 the Center 7.5-325 mg morning per tablet and 1 tablet before bedtime. Max Daily Amount: 2 tablets. sertraline 2022-0 Yes 50mg Take 1 [facility]I S t (ZOLOFT) 50 4-30 tablet (50 Leandra kes MG tablet 16:51: mg total) Med ical 40 by mouth. Center triamterene 2022-0 Yes 1{capsu QD Take [address] -hydroCHLOR 4-30 le} capsule by Leandra quinones Othiazide 16:51: mouth Medical (DYAZIDE) 40 every Center 37.5-25 mg morning. per capsule simvastatin 2022-0 Yes 80mg QD Take [address] (ZOCOR) 80 4-30 tablet (80 Case es MG tablet 16:51: mg total) Med ical 40 by mouth Center nightly. benzonatate 2023-0 Yes 100mg Take [address] (TESSALON) 4-30 capsule [facility]ukes 100 MG 16:51: (100 mg Medical capsule 40 total) by Center mouth 3 (three) times daily as needed for Cough. HYDROcodone 2022-0 Yes pain 1{tbl} Q.5D Take [address] -acetaminop 4-30 tablet by Case es hen (NORCO 16:51: mouth in Med ical [...] by mouth Center in the morning. predniSONE 2022-2022- No 20mg Q.5D Take [address] (DELTASONE) 4-30 04-30 tablet (20 L ukes 20 MG 12:25: 00:00 mg total) Medica l tablet 26 :00 by mouth Center in the morning and 1 tablet (20 mg total) before bedtime. lisinopriL 2022- No 5mg QD Take 1 [...] tablet (20 mg total) before bedtime. dextrometho 2022- Yes 1{tbl} Q.5D Take [address] rphan-guaif 4-30 05-10 tablet by Leandra kes enesin 00:00: 23:59 mouth in Medica l (MuciNEX 00 :00 the Center DM) 30-600 morning mg per 12 and 1 hr tablet tablet before bedtime. Do all this for 10 days. . dextrometho 2022-2022- No 1{tbl} Q.5D Take [address] rphan-guaif 4-30 05-10 tablet by Leandra kes enesin 00:00: 23:59 mouth in Medica l (MuciNEX 00 :00 the Center DM) 30-600 morning mg per 12 and 1 hr tablet tablet before bedtime. Do all this for 10 days. . predniSONE 2022- Yes Take [address] (DELTASONE) 06-07 tablets Luke s 10 MG 00:00: 23:59 (40 mg Medical tablet 00 :00 total) by Center mouth daily for 3 days, THEN 2 tablets (20 mg total) daily for 3 days, THEN 1 tablet (10 mg total) daily for 3 days. . predniSONE 2022- No Take [address] (DELTASONE) 06-07 tablets Luke s 10 MG 00:00: 23:59 (40 mg Medical tablet 00 :00 total) by Center mouth daily for 3 days, THEN 2 tablets (20 mg total) daily for 3 days, THEN 1 tablet (10 mg total) daily for 3 days. . levoFLOXaci 2022- No 750mg QD Take [address] n 06-07 tablet [facility]ukes (LEVAQUIN) 00:00: 23:59 (750 mg Med ical 750 MG 00 :00 total) by Center tablet mouth in the morning for 3 days. levoFLOXaci 2022- No 750mg QD Take [address] n 06-07 tablet Lukes (LEVAQUIN) 00:00: 23:59 (750 mg Med ical 750 MG 00 :00 total) by Center tablet mouth in the morning for 3 days. metFORMIN 2022- No type 2 1000mg Take [address] (GLUCOPHAGE 06-05 diabetes tablet L uk ) 1000 MG 05:23: 00:00 mellitus (1,000 mg Medical tablet 29 :00 total) by Center mouth 2 (two) times daily with breakfast and dinner. metFORMIN 2022- No type 2 1000mg Take [address] (GLUCOPHAGE 06-05 diabetes tablet L ukes ) 1000 MG 05:23: 00:00 mellitus (1,000 mg Medical tablet 29 :00 total) by Center mouth 2 (two) times daily with breakfast and dinner. pregabalin 2022- No 75mg [address] (LYRICA) 75 4-28 04-28 (75 mg [facility]ukes MG capsule 04:44: 00:00 total). Med ical 45 :00 Center pregabalin 2023-0 2023- No 75mg [address] (LYRICA) 75 4-28 -28 (75 mg [facility]ukes MG capsule 04:44: 00:00 total). Med ical 45 :00 Center nicotine 2023-0 Yes 1{patch QD [address] (NICODERM 4-24 } the Lukes CQ) 14 00:00: morning. Medical mg/24 hr 00 Center patch nicotine 2023-0 Yes 1{patch QD [address] (NICODERM 4-24 } the Lukes CQ) 14 00:00: morning. Medical mg/24 hr 00 Center patch pregabalin 2023-0 Yes 25mg Q.5D Take 1 [facility]I [facility] t (LYRICA) 25 4-03 capsule [facility]ukes MG capsule 00:00: (25 mg Medic al 00 total) by Center mouth in the morning and 1 capsule (25 mg total) before bedtime. Max Daily Amount: 50 mg. pregabalin 2023-0 Yes 25mg Q.5D Take 1 [facility] t (LYRICA) 25 4-03 capsule [facility]ukes MG capsule 00:00: (25 mg Medic al 00 total) by Center mouth in the morning and 1 capsule (25 mg total) before bedtime. Max Daily Amount: 50 mg. Trintellix 2023-0 Yes 10mg QD Take 1 CHI S t 10 mg 3-22 tablet (10 [facility]ukes tablet 00:00: mg total) Medica l 00 by mouth Center in the morning. Trintellix 2023-0 Yes 10mg QD Take 1 [facility]I S t 10 mg 3-22 tablet (10 [facility]ukes tablet 00:00: mg total) Medica l 00 by mouth Center in the morning. Trintellix Trintellix 2022-0 No 1{table QD Trintellix 10 MG 10 MG 9-27 t} 10 MG 00:00: 00 Trintellix Trintellix 2022-0 No 1{table QD Trintellix 10 MG 10 MG 9-27 t} 10 MG 00:00: 00 Pregabalin Pregabalin 2022-0 No 1{capsu BID Pregabalin 75 MG 75 MG 1-03 le} 75 MG 00:00: 00 Pregabalin Pregabalin No 1{capsu BID Pregabalin 75 MG 75 MG 03 le} 75 MG 00:00: 00 Pregabalin Pregabalin No 1{capsu BID Pregabalin 75 MG 75 MG 02-10 le} 75 MG 00:00: 00 Pregabalin Pregabalin No 1{capsu BID Pregabalin 75 MG 75 MG 02-10 le} 75 MG 00:00: 00 Bactrim DS Bactrim DS 2019- No Kaylee 1 tablet Common 17 -20 [place] Spirit 00:00: 00:00 - CHI 00 :00 [facility] Tamsulosin Tamsulosin 2020- No Kaylee 1 capsule Common HCl HCl 09-25 Chen Spirit 00:00: 00:00 - CHI 00 :00 [facility] Flonase Flonase Yes Kaylee 1 spray in Co mmon Chen each Spirit nostril - [facility] Metformin Metformin Yes Kaylee TAKE 1 Co mmon HCl HCl [place] TABLET BY Spirit MOUTH - CHI TWICE A St DAY WITH [facility] Triamterene Triamterene Yes Kaylee 1 tablet Common -HCTZ -HCTZ [place] in the [facility] morning [facility] Zoloft Zoloft Yes Kaylee 2 tablets Commo n Chen [facility] Trelegy Trelegy Yes Kaylee INHALE 1 Comm on Ellipta Ellipta Chen PUFF BY Sp eliza MOUTH - CHI EVERY DAY [facility] PredniSONE PredniSONE Yes Kaylee 1 tablet Common [place] [facility] Sertraline Sertraline Yes Kaylee TAKE 2 Common HCl HCl Chen TABLETS Spirit ONCE DAILY - [facility] Simvastatin Simvastatin Yes Kaylee TAKE 1 Common [place] TABLET BY Spirit MOUTH - CHI EVERY DAY St IN [facility] EVENING [facility] Januvia Januvia Yes Kaylee TAKE 1 Common Chen TABLET Spirit ONCE DAILY - [facility] Albuterol Albuterol Yes Kaylee 2 puffs as Common Sulfate HFA Sulfate HFA [place] needed [facility] Pregabalin Pregabalin Yes Kaylee 1 capsule Common Chen 1 to 3 Spirit hours - CHI before St bedtime in [facility] Fair Play Fair [place] Yes Kaylee 1 tablet Common [place] as needed Spirit CHI [facility] Lisinopril Lisinopril Yes Kaylee 1 tablet Common Chen Spirit CHI [facility] Simvastatin Simvastatin Yes Kaylee 1 tablet Common Chen in the Spirit evening - CHI [facility] Baclofen Baclofen Yes Kaylee not Common Chen defined Spirit CHI [facility] metFORMIN metFORMIN No metFORMIN HCl 1000 MG HCl 1000 MG HCl 1000 MG [place] No 1{table QID [place] 10-325 MG 10-325 MG t_as_ne 10-325 MG [...] MCG/ACT MCG/ACT MCG/ACT Baclofen Baclofen No Baclofen [place] No 1{table QID [place] 10-325 MG 10-325 MG t_as_ne 10-325 MG [...] MCG/ACT MCG/ACT MCG/ACT Baclofen Baclofen No Baclofen [place] No 1{table QID [place] 10-325 MG 10-325 MG t_as_ne 10-325 MG eded} Simvastatin Simvastatin No Simvastati 80 MG 80 MG n 80 MG predniSONE predniSONE No 1{table predniSONE 2.5 MG 2.5 MG t} 2.5 MG Simvastatin Simvastatin No 1{table QD Simvastati 80 MG 80 MG t_in_th n 80 MG e_eveni ng} [place] No 1{table QID [place] 10-325 MG 10-325 MG t_as_ne 10-325 MG [...] Pregabalin 150 MG 150 MG 150 MG [place] No 1{table QID [place] 10-325 MG 10-325 MG t_as_ne 10-325 MG [...] 1{table QD Simvastati 80 MG 80 MG t_in n 80 MG e_eveni ng} Triamterene Triamterene No 1{table QD Triamteren -HCTZ -HCTZ t_in e-HCTZ 37.5-25 MG 37.5-25 MG e_morni 37.5-25 [...] HCl 0.4 MG le} HCl 0.4 MG [place] No 1{table QID [place] 10-325 MG 10-325 MG t_as_ne 10-325 MG [...] Nebulizer Nebulizer No Nebulizer Compressor Compressor Compressor [place] No 1{table QID [place] 10-325 MG 10-325 MG t_as_ne 10-325 MG [...] Nebulizer Nebulizer No Nebulizer Compressor Compressor Compressor [place] No 1{table QID [place] 10-325 MG 10-325 MG t_as_ne 10-325 MG [...] 100-62.5-25 100-62.5-25 100-62.5-2 MCG/INH MCG/INH 5 MCG/INH [place] No 1{table QID [place] 10-325 MG 10-325 MG t_as_ne 10-325 MG [...] 75 MG 75 MG le} 75 MG [place] No 1{table QID [place] 10-325 MG 10-325 MG t_as_ne 10-325 MG [...] 75 MG 75 MG le} 75 MG [place] No 1{table QID [place] 10-325 MG 10-325 MG t_as_ne 10-325 MG [...] 75 MG 75 MG le} 75 MG [place] No 1{table QID [place] 10-325 MG 10-325 MG t_as_ne 10-325 MG [...] 75 MG 75 MG le} 75 MG [place] No 1{table QID [place] 10-325 MG 10-325 MG t_as_ne 10-325 MG eded} metFORMIN metFORMIN No metFORMIN HCl 1000 MG HCl 1000 MG HCl 1000 MG metFORMIN metFORMIN No metFORMIN HCl 1000 MG HCl 1000 MG HCl 1000 MG [place] No 1{table QID [place] 10-325 MG 10-325 MG t_as_ne 10-325 MG [...] n 500 MG t} in 500 MG [place] No 1{table QID [place] 10-325 MG 10-325 MG t_as_ne 10-325 MG [...] MG HCl 1000 MG HCl 1000 MG [place] No 1{table QID [place] 10-325 MG 10-325 MG t_as_ne 10-325 MG [...] Base) Base) (90 Base) MCG/ACT MCG/ACT MCG/ACT [place] No 1{table QID [place] 10-325 MG 10-325 MG t_as_ne 10-325 MG [...] 20 MG 20 MG t} 20 MG [place] No 1{table QID [place] 10-325 MG 10-325 MG t_as_ne 10-325 MG [...] 75 MG 75 MG le} 75 MG [place] No 1{table QID [place] 10-325 MG 10-325 MG t_as_ne 10-325 MG eded} metFORMIN metFORMIN No metFORMIN HCl 1000 MG HCl 1000 MG HCl 1000 MG Immunizations Ordered Immunization Filled Immunization Date Status Commen ts Source Name Name FLUZONE HIGH DOSE FLUZONE HIGH DOSE 2021-12-03 Completed [facility] OVER 65 OVER 65 10:08:00 - [facility] FLUZONE HIGH DOSE FLUZONE HIGH DOSE 2021-12-03 Completed [facility] OVER 65 OVER 65 10:08:00 - [facility] FLUZONE HIGH DOSE FLUZONE HIGH DOSE 2021-12-03 Completed [facility] OVER 65 OVER 65 10:08:00 - [facility] FLUZONE HIGH DOSE FLUZONE HIGH DOSE 2021-12-03 Completed [facility] OVER 65 OVER 65 10:08:00 - [facility] FLUZONE HIGH DOSE FLUZONE HIGH DOSE 2020-11-14 Completed [facility] OVER 65 OVER 65 10:39:00 - [facility] FLUZONE HIGH DOSE FLUZONE HIGH DOSE 2020-11-14 Completed [facility] OVER 65 OVER 65 10:39:00 - [facility] FLUZONE HIGH DOSE FLUZONE HIGH DOSE 2020-11-14 Completed [facility] OVER 65 OVER 65 10:39:00 - [facility] FLUZONE HIGH DOSE FLUZONE HIGH DOSE 2020-11-14 Completed [facility] OVER 65 OVER 65 10:39:00 - [facility] FLUZONE HIGH DOSE FLUZONE HIGH DOSE 2020-11-14 Completed [facility] OVER 65 OVER 65 10:39:00 - [facility] FLUZONE HIGH DOSE FLUZONE HIGH DOSE 2020-11-14 Completed [facility] OVER 65 OVER 65 10:39:00 - [facility] FLUZONE HIGH DOSE FLUZONE HIGH DOSE 2020-11-14 Completed [facility] OVER 65 OVER 65 10:39:00 - [facility] FLUZONE HIGH DOSE FLUZONE HIGH DOSE 2020-11-14 Completed [facility] OVER 65 OVER 65 10:39:00 - [facility] FLUZONE HIGH DOSE FLUZONE HIGH DOSE 2020-11-14 Completed [facility] OVER 65 OVER 65 10:39:00 - [facility] FLUZONE HIGH DOSE FLUZONE HIGH DOSE 2020-11-14 Completed [facility] OVER 65 OVER 65 10:39:00 - [facility] FLUZONE HIGH DOSE FLUZONE HIGH DOSE 2020-11-14 Completed [facility] OVER 65 OVER 65 10:39:00 - [facility] FLUZONE HIGH DOSE FLUZONE HIGH DOSE 2020-11-14 Completed [facility] OVER 65 OVER 65 10:39:00 - [facility] FLUZONE HIGH DOSE FLUZONE HIGH DOSE 2020-11-14 Completed [facility] OVER 65 OVER 65 10:39:00 - [facility] FLUZONE HIGH DOSE FLUZONE HIGH DOSE 2020-11-14 Completed [facility] OVER 65 OVER 65 10:39:00 - [facility] FLUZONE HIGH DOSE FLUZONE HIGH DOSE 2020-11-14 Completed [facility] OVER 65 OVER 65 10:39:00 - [facility] FLUZONE HIGH DOSE FLUZONE HIGH DOSE 2020-11-14 Completed [facility] OVER 65 OVER 65 10:39:00 - [facility] FLUZONE HIGH DOSE FLUZONE HIGH DOSE 2020-11-14 Completed [facility] OVER 65 OVER 65 10:39:00 - [facility] FLUZONE HIGH DOSE FLUZONE HIGH DOSE 2020-11-14 Completed [facility] OVER 65 OVER 65 10:39:00 - [facility] FLUZONE HIGH DOSE FLUZONE HIGH DOSE 2020-11-14 Completed [facility] OVER 65 OVER 65 10:39:00 [facility] Moderna COVID-19 Moderna COVID-19 2020-05-09 Completed Co mmon Spirit Vaccine Vaccine 13:48:00 [facility] Moderna COVID-19 Moderna COVID-19 2020-05-09 Completed Co mmon Spirit Vaccine Vaccine 13:48:00 - [facility] Moderna COVID-19 Moderna COVID-19 2020-05-09 Completed Co mmon Spirit Vaccine Vaccine 13:48:00 - [facility] Moderna COVID-19 Moderna COVID-19 2020-05-09 Completed Co mmon Spirit Vaccine Vaccine 13:48:00 - [facility] Moderna COVID-19 Moderna COVID-19 2020-05-09 Completed Co mmon Spirit Vaccine Vaccine 13:48:00 - [facility] Moderna COVID-19 Moderna COVID-19 2020-05-09 Completed Co mmon Spirit Vaccine Vaccine 13:48:00 - [facility] Moderna COVID-19 Moderna COVID-19 2020-05-09 Completed Co mmon Spirit Vaccine Vaccine 13:48:00 - [facility] Moderna COVID-19 Moderna COVID-19 2020-05-09 Completed Co mmon Spirit Vaccine Vaccine 13:48:00 - [facility] Moderna COVID-19 Moderna COVID-19 2020-05-09 Completed Co mmon Spirit Vaccine Vaccine 13:48:00 - [facility] Moderna COVID-19 Moderna COVID-19 2020-05-09 Completed Co mmon Spirit Vaccine Vaccine 13:48:00 - [facility] Moderna COVID-19 Moderna COVID-19 2020-05-09 Completed Co mmon Spirit Vaccine Vaccine 13:48:00 - [facility] Moderna COVID-19 Moderna COVID-19 2020-05-09 Completed Co mmon Spirit Vaccine Vaccine 13:48:00 - [facility] Moderna COVID-19 Moderna COVID-19 2020-05-09 Completed Co mmon Spirit Vaccine Vaccine 13:48:00 - [facility] Moderna COVID-19 Moderna COVID-19 2020-05-09 Completed Co mmon Spirit Vaccine Vaccine 13:48:00 - [facility] Moderna COVID-19 Moderna COVID-19 2020-05-09 Completed Co mmon Spirit Vaccine Vaccine 13:48:00 - [facility] Moderna COVID-19 Moderna COVID-19 2020-05-09 Completed Co mmon Spirit Vaccine Vaccine 13:48:00 - [facility] Moderna COVID-19 Moderna COVID-19 2020-05-09 Completed Co mmon Spirit Vaccine Vaccine 13:48:00 - [facility] Moderna COVID-19 Moderna COVID-19 2020-05-09 Completed Co mmon Spirit Vaccine Vaccine 13:48:00 - [facility] Moderna COVID-19 Moderna COVID-19 2020-04-08 Completed Co mmon Spirit Vaccine Vaccine 13:48:00 - [facility] Moderna COVID-19 Moderna COVID-19 2020-04-08 Completed Co mmon Spirit Vaccine Vaccine 13:48:00 - [facility] Moderna COVID-19 Moderna COVID-19 2020-04-08 Completed Co mmon Spirit Vaccine Vaccine 13:48:00 - [facility] Moderna COVID-19 Moderna COVID-19 2020-04-08 Completed Co mmon Spirit Vaccine Vaccine 13:48:00 - [facility] Moderna COVID-19 Moderna COVID-19 2020-04-08 Completed Co mmon [facility] Vaccine Vaccine 13:48:00 - [facility] Moderna COVID-19 Moderna COVID-19 2020-04-08 Completed Co mmon Spirit Vaccine Vaccine 13:48:00 - [facility] Moderna COVID-19 Moderna COVID-19 2020-04-08 Completed Co mmon Spirit Vaccine Vaccine 13:48:00 - [facility] Moderna COVID-19 Moderna COVID-19 2020-04-08 Completed Co mmon [facility] Vaccine Vaccine 13:48:00 - [facility] Moderna COVID-19 Moderna COVID-19 2020-04-08 Completed Co mmon [facility] Vaccine Vaccine 13:48:00 - [facility] Moderna COVID-19 Moderna COVID-19 2020-04-08 Completed Co mmon [facility] Vaccine Vaccine 13:48:00 - [facility] Moderna COVID-19 Moderna COVID-19 2020-04-08 Completed Co mmon [facility] Vaccine Vaccine 13:48:00 - [facility] Moderna COVID-19 Moderna COVID-19 2020-04-08 Completed Co mmon [facility] Vaccine Vaccine 13:48:00 - [facility] Moderna COVID-19 Moderna COVID-19 2020-04-08 Completed Co mmon [facility] Vaccine Vaccine 13:48:00 - [facility] Moderna COVID-19 Moderna COVID-19 2020-04-08 Completed Co mmon [facility] Vaccine Vaccine 13:48:00 - [facility] Moderna COVID-19 Moderna COVID-19 2020-04-08 Completed Co mmon [facility] Vaccine Vaccine 13:48:00 - [facility] Moderna COVID-19 Moderna COVID-19 2020-04-08 Completed Co mmon [facility] Vaccine Vaccine 13:48:00 - [facility] Moderna COVID-19 Moderna COVID-19 2020-04-08 Completed Co mmon [facility] Vaccine Vaccine 13:48:00 - [facility] Moderna COVID-19 Moderna COVID-19 2020-04-08 Completed Co mmon [facility] Vaccine Vaccine 13:48:00 - [facility] FluAD FluAD 2020-01-17 Completed [facility] 11:24:00 - [facility] FluAD FluAD 2020-01-17 Completed [facility] 11:24:00 [facility] FluAD FluAD 2020-01-17 Completed [facility] 11:24:00 - [facility] FluAD FluAD 2020-01-17 Completed [facility] 11:24:00 - [facility] FluAD FluAD 2020-01-17 Completed [facility] 11:24:00 [facility] FluAD FluAD 2020-01-17 Completed [facility] 11:24:00 [facility] FluAD FluAD 2020-01-17 Completed [facility] 11:24:00 [facility] FluAD FluAD 2020-01-17 Completed [facility] 11:24:00 [facility] FluAD FluAD 2020-01-17 Completed [facility] 11:24:00 [facility] FluAD FluAD 2020-01-17 Completed [facility] 11:24:00 - [facility] FluAD FluAD 2020-01-17 Completed [facility] 11:24:00 - [facility] FluAD FluAD 2020-01-17 Completed [facility] 11:24:00 - [facility] FluAD FluAD 2020-01-17 Completed [facility] 11:24:00 - [facility] FluAD FluAD 2020-01-17 Completed [facility] 11:24:00 - [facility] FluAD FluAD 2020-01-17 Completed [facility] 11:24:00 - [facility] FluAD FluAD 2020-01-17 Completed [facility] 11:24:00 - [facility] FluAD FluAD 2020-01-17 Completed [facility] 11:24:00 - [facility] FluAD FluAD 2020-01-17 Completed [facility] 11:24:00 - [facility] FluAD FluAD 2020-01-17 Completed [facility] 11:24:00 - [facility] Pneumovax (PPSV23) Pneumovax (PPSV23) 2017-11-08 Completed [facility] 13:48:00 - [facility] Pneumovax (PPSV23) Pneumovax (PPSV23) 2017-11-08 Completed [facility] 13:48:00 [facility] Pneumovax (PPSV23) Pneumovax (PPSV23) 2017-11-08 Completed [facility] 13:48:00 - [facility] Pneumovax (PPSV23) Pneumovax (PPSV23) 2017-11-08 Completed [facility] 13:48:00 - [facility] Pneumovax (PPSV23) Pneumovax (PPSV23) 2017-11-08 Completed [facility] 13:48:00 [facility] Pneumovax (PPSV23) Pneumovax (PPSV23) 2017-11-08 Completed [facility] 13:48:00 [facility] Pneumovax (PPSV23) Pneumovax (PPSV23) 2017-11-08 Completed [facility] 13:48:00 [facility] Pneumovax (PPSV23) Pneumovax (PPSV23) 2017-11-08 Completed [facility] 13:48:00 - [facility] Pneumovax (PPSV23) Pneumovax (PPSV23) 2017-11-08 Completed [facility] 13:48:00 [facility] Pneumovax (PPSV23) Pneumovax (PPSV23) 2017-11-08 Completed [facility] 13:48:00 [facility] Pneumovax (PPSV23) Pneumovax (PPSV23) 2017-11-08 Completed [facility] 13:48:00 - [facility] Pneumovax (PPSV23) Pneumovax (PPSV23) 2017-11-08 Completed [facility] 13:48:00 [facility] Pneumovax (PPSV23) Pneumovax (PPSV23) 2017-11-08 Completed [facility] 13:48:00 [facility] Pneumovax (PPSV23) Pneumovax (PPSV23) 2017-11-08 Completed [facility] 13:48:00 [facility] Pneumovax (PPSV23) Pneumovax (PPSV23) 2017-11-08 Completed [facility] 13:48:00 [facility] Pneumovax (PPSV23) Pneumovax (PPSV23) 2017-11-08 Completed [facility] 13:48:00 [facility] Pneumovax (PPSV23) Pneumovax (PPSV23) 2017-11-08 Completed [facility] 13:48:00 [facility] Pneumovax (PPSV23) Pneumovax (PPSV23) 2017-11-08 Completed [facility] 13:48:00 [facility] Vital Signs Vital Name Observation Time Observation Value Comments Source height 2022-03-05 10:10:00 66.5 [in_i] [facility] weight 2022-03-05 10:10:00 158 [lb_av] [facility] temperature 2022-03-05 10:10:00 97.6 [degF] [facility] bmi 2022-03-05 10:10:00 25.12 kg/m2 [facility] oximetry 2022-03-05 10:10:00 95 % [facility] respiratory rate 2022-03-05 10:10:00 16 /min Comm on [facility] blood pressure 2022-03-05 10:10:00 118 mm[Hg] Common [facility] - systolic [facility] blood pressure 2022-03-05 10:10:00 70 mm[Hg] Common [facility] - diastolic [facility] height 2021-12-03 09:50:00 66.5 [in_i] [facility] weight 2021-12-03 09:50:00 156.0 [lb_av] [facility] temperature 2021-12-03 09:50:00 97.2 [degF] [facility] bmi 2021-12-03 09:50:00 24.8 kg/m2 [facility] oximetry 2021-12-03 09:50:00 98 % [facility] respiratory rate 2021-12-03 09:50:00 18 /min Comm on [facility] blood pressure 2021-12-03 09:50:00 129 mm[Hg] [facility] systolic [facility] blood pressure 2021-12-03 09:50:00 59 mm[Hg] Common [facility] - diastolic [facility] height 2021-11-04 13:00:00 66.5 [in_i] [facility] weight 2021-11-04 13:00:00 156.3 [lb_av] [facility] temperature 2021-11-04 13:00:00 97.9 [degF] [facility] bmi 2021-11-04 13:00:00 24.85 kg/m2 [facility] oximetry 2021-11-04 13:00:00 96 % [facility] respiratory rate 2021-11-04 13:00:00 17 /min Comm on [facility] blood pressure 2021-11-04 13:00:00 132 mm[Hg] Common [facility] - systolic [facility] blood pressure 2021-11-04 13:00:00 67 mm[Hg] [facility] - [facility] height 2021-09-04 13:30:00 66.5 [in_i] [facility] weight 2021-09-04 13:30:00 156 [lb_av] [facility] temperature 2021-09-04 13:30:00 97.6 [degF] [facility] bmi 2021-09-04 13:30:00 24.8 kg/m2 [facility] oximetry 2021-09-04 13:30:00 96 % [facility] respiratory rate 2021-09-04 13:30:00 16 /min Comm on [facility] blood pressure 2021-09-04 13:30:00 135 mm[Hg] Common [facility] - systolic [facility] blood pressure 2021-09-04 13:30:00 63 mm[Hg] Common [facility] - diastolic [facility] height 2021-09-04 14:00:00 66.5 [in_i] [facility] weight 2021-09-04 14:00:00 156 [lb_av] [facility] temperature 2021-09-04 14:00:00 97.6 [degF] [facility] bmi 2021-09-04 14:00:00 24.8 kg/m2 [facility] oximetry 2021-09-04 14:00:00 96 % [facility] respiratory rate 2021-09-04 14:00:00 16 /min Comm on [facility] blood pressure 2021-09-04 14:00:00 135 mm[Hg] Common [facility] - systolic [facility] blood pressure 2021-09-04 14:00:00 63 mm[Hg] [facility] - [facility] height 2021-05-27 11:40:00 68 [in_i] [facility] - [facility] weight 2021-05-27 11:40:00 172 [lb_av] [facility] bmi 2021-05-27 11:40:00 26.15 kg/m2 [facility] - [facility] height 2021-02-10 09:30:00 68 [in_i] [facility] weight 2021-02-10 09:30:00 172.7 [lb_av] [facility] temperature 2021-02-10 09:30:00 97.3 [degF] [facility] bmi 2021-02-10 09:30:00 26.26 kg/m2 [facility] S pirit [facility] oximetry 2021-02-10 09:30:00 99 % [facility] S pirit [facility] respiratory rate 2021-02-10 09:30:00 17 /min Comm on [facility] blood pressure 2021-02-10 09:30:00 138 mm[Hg] Common [facility] - systolic [facility] blood pressure 2021-02-10 09:30:00 72 mm[Hg] Common [facility] - diastolic [facility] height 2021 09:00:00 68 [in_i] Common S pirit [facility] weight 2021 09:00:00 169.3 [lb_av] [facility] temperature 2021 09:00:00 97.9 [degF] [facility] bmi 2021 09:00:00 25.74 kg/m2 [facility] S [facility] oximetry 2021 09:00:00 96 % [facility] respiratory rate 2021 09:00:00 16 /min Comm on [facility] blood pressure 2021 09:00:00 132 mm[Hg] [facility] - systolic [facility] blood pressure 2021 09:00:00 65 mm[Hg] [facility] - diastolic [facility] height 2020-11-14 09:00:00 68 [in_i] [facility] weight 2020-11-14 09:00:00 168.6 [lb_av] Common [facility] temperature 2020-11-14 09:00:00 96.7 [degF] [facility] bmi 2020-11-14 09:00:00 25.63 kg/m2 [facility] S [facility] oximetry 2020-11-14 09:00:00 91 % [facility] blood pressure 2020-11-14 09:00:00 120 mm[Hg] Common [facility] - systolic [facility] blood pressure 2020-11-14 09:00:00 60 mm[Hg] [facility] - [facility] height 2020-11-14 09:00:00 68 [in_i] [facility] weight 2020-11-14 09:00:00 168.6 [lb_av] [facility] temperature 2020-11-14 09:00:00 96.7 [degF] [facility] bmi 2020-11-14 09:00:00 25.63 kg/m2 [facility] oximetry 2020-11-14 09:00:00 91 % [facility] respiratory rate 2020-11-14 09:00:00 16 /min Comm on [facility] blood pressure 2020-11-14 09:00:00 120 mm[Hg] [facility] - systolic [facility] blood pressure 2020-11-14 09:00:00 60 mm[Hg] Common [facility] - diastolic [facility] Oxygen saturation in 2022-06-07 13:55:00 98 /min [facility] Arterial blood by Medical Ce nter Pulse oximetry Heart rate 2022-06-07 13:55:00 78 /min [facility] Respiratory rate 2022-06-07 13:55:00 20 /min [facility] Systolic blood 2022-06-07 12:00:00 163 mm[Hg] [facility] Diastolic blood 2022-06-07 12:00:00 70 mm[Hg] [facility] Body temperature 2022-06-07 12:00:00 36.5 Lala [facility] Procedures Procedure Date / Time Performed Performing Clinician Sour e POCT-GLUCOSE METER 2022-06-07 11:07:00 Curtis [facility] POCT-GLUCOSE METER 2022-06-07 06:18:00 Curtis [facility] CBC W/PLT COUNT & AUTO 2022-06-07 05:29:[address] [facility] BASIC METABOLIC PANEL 2022-06-07 05:29:00 Curtis [facility] CBC W/PLT COUNT & AUTO 2022-06-07 05:29:[address] [facility] XR CHEST 1 VIEW PORTABLE 2022-06-07 04:35:00 Nikolas Reeves [facility] / BEDSIDE [facility] POCT-GLUCOSE METER 2022-06-06 22:01:00 Curtis [facility] POCT-GLUCOSE METER 2022-06-06 15:04:00 Curtis [facility] PROCALCITONIN 2022-06-06 12:37:00 Curtis [facility] POCT-GLUCOSE METER 2022-06-06 11:55:00 Curtis [facility] POCT-GLUCOSE METER 2022-06-06 06:31:00 Curtis [facility] C-REACTIVE PROTEIN 2022-06-06 05:07:00 YueNikolas penaloza [facility] CBC W/PLT COUNT & AUTO 2022-06-06 05:07:00 Curtis [facility] DIFFERENTIAL [facility] CBC W/PLT COUNT & AUTO 2022-06-06 05:07:00 Curtis [facility] DIFFERENTIAL [facility] BASIC METABOLIC PANEL 2022-06-06 05:07:00 Yueca [facility] D-DIMER 2022-06-06 05:07:00 Curtis [facility] SODIUM, RANDOM URINE 2022-06-05 21:33:00 [facility]SE METER 2022-06-05 20:11:00 Yueca [facility] D-DIMER 2022-06-05 17:25:00 Leobardo Terrazas [facility] SODIUM 2022-06-05 17:25:00 Leti Sanchez [facility] POCT-GLUCOSE METER 2022-06-05 16:17:00 [facility] ECG 12-LEAD 2022-06-05 08:33:21 Unknown, 7 [facility] ECG 12-LEAD 2022-06-05 08:33:21 Unknown, 7 [facility] ECG 12-LEAD 2022-06-05 08:32:58 Unknown, 7 [facility] ECG 12-LEAD 2022-06-05 08:32:58 Unknown, Hl7 [facility] BLOOD CULTURE 2022-06-05 08:13:00 Stephanie [facility] BLOOD CULTURE 2022-06-05 08:12:00 Stephanie [facility] C-REACTIVE PROTEIN 2022-06-05 08:08:00 Stephanie Laura [facility] POCT-GLUCOSE METER 2022-06-05 06:50:[facility] 2022-06-05 04:57:00 Prudence Shahenna [facility] STREP PNEUMONIAE ANTIGEN 2022-06-05 04:24:00 Laura Shah kennedi [facility] OSMOLALITY, URINE 2022-06-05 04:24:00 Stephanie [facility] SODIUM, RANDOM URINE 2022-06-05 04:24:00 Laura Shahvinita [facility] CBC W/PLT COUNT & AUTO 2022-06-05 04:21:00 Stephanie [facility] COMPREHENSIVE METABOLIC 2022-06-05 04:21:[address] [facility] HEMOGLOBIN A1C 2022-06-05 04:21:00 [facility] PROTHROMBIN TIME/INR 2022-06-05 04:21:00 Laura Shahvinita C [facility] MAGNESIUM 2022-06-05 04:21:00 Stephanie [facility] PHOSPHORUS 2022-06-05 04:21:00 [facility] CBC W/PLT COUNT & AUTO 2022-06-05 04:21:00 [facility] LIPID PANEL 2022-06-05 04:21:00 [facility] TROPONIN I 2022-06-05 04:21:00 [facility] EKG-SCANNED 2022-06-05 00:00:00 Provider, [facility] Plan of Care Planned Activity Planned Date Details Comments Source Future Scheduled 2023-06-02 Tobacco Cessation [facility] 00:00:00 [facility] Scre[facility] (12+) [code = Tobacco Cessation Counseling and Screening (12+)] Future Scheduled 2023-06-[address] [facility] Test 00:00:00 [facility] Screening (12+) [code = Tobacco Cessation Counseling and Screening (12+)] Future Scheduled 2022-12-[address] [facility] 00:00:00 measurement (procedure) [facility] [code = 54260974] Future Scheduled 2022-12-[address] [facility] 00:00:00 measurement (procedure) [facility] [code = 86320830] Future Scheduled 2022-02-[address] [facility] Test 00:00:00 (12+) [code = Medical Center DEPRESSION SCREENING (12+)] Future Scheduled 2022-02-08 FALLS RISK SCREENING [facility] Test 00:00:00 [code = FALLS RISK Medical C enter SCREENING] Future Scheduled 2022-02-08 Medicare IPPE (WELCOME [facility] 00:00:00 TO MEDICARE) [code = Medical Center Medicare IPPE (WELCOME TO MEDICARE)] Future Scheduled 2022-02-[address] [...] - Booster for Moderna series)] Future Scheduled 2020-07-04 COVID-19 VACCINE (3 - [facility] 00[facility]:00 Booster for Moderna [facility] series) [code = COVID-19 VACCINE (3 - Booster for Moderna series)] Future Scheduled 2013-01-[address] [facility] Test 00:00:00 aneurysm screening Medical C enter (procedure) [code = 204583540] Future Scheduled 2013-01-[address] [facility] Test 00:00:00 aneurysm screening Medical C enter (procedure) [code = 788899879] Future Scheduled 1998-01-26 SHINGLES VACCINES ([address] [facility] Test 00:00:00 2) [code = SHINGLES Medical Center VACCINES (1 of 2)] Future Scheduled 1998-01-26 SHINGLES VACCINES ([address] [facility] Test 00:00:00 2) [code = SHINGLES Medical Center VACCINES (1 of 2)] Future Scheduled 1967-01-26 DTAP/TDAP/TD VACCINES [facility] 00:00:00 (1 - Tdap) [code = Medical C enter DTAP/TDAP/TD VACCINES (1 - Tdap)] Future Scheduled 1967-01-26 DTAP/TDAP/TD VACCINES [facility] 00:00:00 (1 - Tdap) [code = Medical C enter DTAP/TDAP/TD VACCINES (1 - Tdap)] Future Scheduled 1966-01-26 HEPATITIS C SCREENING [facility] 00:00:00 [code = HEPATITIS C Medical Center SCREENING] Future Scheduled 1966-01-26 HEPATITIS C SCREENING [facility] 00:00:00 [code = HEPATITIS C Medical Center SCREENING] Future Scheduled 1958-01-26 DIABETIC EYE EXAM [code [facility] 00:00:00 = DIABETIC EYE EXAM] Medical Center Future Scheduled 1958-01-[address] [facility] 00:[facility]:00 examination Medical Center (regime/therapy) [code = 834638419] Future Scheduled 1958-01-26 Urine screening for [facility] 00:00:00 protein (procedure) Medical Center [code = 847705505] Future Scheduled 1958-01-26 DIABETIC EYE EXAM [code [facility] 00:00:00 = DIABETIC EYE EXAM] Medical Center Future Scheduled 1958-01-[address] [facility] 00:00:00 examination Medical Center (regime/therapy) [code = 526176253] Future Scheduled 1958-01-26 Urine screening for [facility] 00:00:00 protein (procedure) Medical Center [code = 466642319] Future Scheduled 1948 Screening for malignant [facility] Test 00:00:00 neoplasm of colon Medical Ce nter (procedure) [code = 961434875] Future Scheduled 1948 Screening for malignant [facility] Test 00:00:00 neoplasm of colon Medical Ce nter (procedure) [code = 356105114] Future Scheduled 1948 CT Colonography (combo) [facility] Test 00:00:00 [code = CT Colon[facility] (combo)] Future Scheduled 1948 Screening for malignant [facility] Test 00:00:00 neoplasm of colon Medical Ce nter (procedure) [code = 635216538] Future Scheduled 1948 Sigmoidoscopy [code = [facility] 00:00:00 Sigmoidoscopy] Medical Cente r Future Scheduled 1948 Screening for malignant [facility] Test 00:00:00 neoplasm of colon Medical Ce nter (procedure) [code = 384771680] Future Scheduled 1948 Screening for malignant [facility] Test 00:00:00 neoplasm of colon Medical Ce nter (procedure) [code = 903252928] Future Scheduled 1948 Screening for malignant [facility] Test 00:00:00 neoplasm of colon Medical Ce nter (procedure) [code = 406614788] Future Scheduled 1948 Sigmoidoscopy [code = [facility] 00:00:00 Sigmoidoscopy] Medical Cente r Future Scheduled 1948 CT Colonography (combo) [facility] Test 00:00:00 [code = CT Colonography [facility] (combo)] Future Scheduled 1948 Screening for malignant [facility] Test 00:00:00 neoplasm of colon Medical Ce nter (procedure) [code = 763084966] Future Scheduled 1948 Screening for malignant [facility] Test 00:00:00 neoplasm of colon Medical Ce nter (procedure) [code = 374188679] Encounters Start End Encounter Admission Attending Care Care Encounter Source Date/Time Date/Time Type Type Clinicians Facility Department ID 2022-03-05 Outpatient Maldonado, ZHENG [facility] [id number] Common 08:03:00 [facility] [id number] [facility] 2021-12-01 [facility] [id number] Common 10:32:00 [facility] [address] [facility] 2021-03-05 Outpatient Maldonado, STLMLC STLMLC [id number] Common 12:35:45 Uri [id number] [facility] 2021-03-05 Outpatient Maldonado, STLMLC STLMLC [id number] Common 12:12:17 Uri [id number] [facility] 2021-03-05 Outpatient Maldonado, STLMLC STLMLC [id number] Common 11:46:55 Uri [id number] [facility] 2021-03-05 Outpatient Maldonado, STLMLC STLMLC [id number] Common 11:25:09 Uri [id number] [facility] 2021-03-05 Outpatient Maldonado, STLMLC STLMLC [id number] Common 11:16:20 Uri [id number] [facility] 2021-03-05 Outpatient Maldonado, STLMLC STLC [id number] Common 11:07:31 Uri [id number] [facility] 2021-03-05 Outpatient Maldonado, STLMLC STLC [id number] Common 11:02:46 Uri [id number] [facility] 2022-06-05 2022-06-07 Inpatient ER [facility] [id number] [facility] 01:05:00 16:51:00 [facility] 2022-06-05 2022-06-07 [facility] [id number] 01:05[facility]00 16:51:00 Encounter Nikolas Reeves [facility] 2022-06-05 2022-06-07 [facility] [id number] 01:05:00 16:51:00 Encounter Nikolas Reeves [facility] 2022-06-05 2022-06-05 Orders [facility] [id number] 00:00:00 00:00:00 [facility] 2022-06-05 2022-06-05 [facility] [id number] 00:00:00 00:00:00 [facility] 2022-03-05 2022-03-05 OFFICE STLMLC STLMLC [id number] Co mmon 00:00:00 00:00:00 VISIT [facility] ESTAB PT - CHI LEVEL 4 [facility] 2022-02-20 2022-02-20 (TEL) STLMLC STLMLC [id number] Co mmon 00:00:00 00:00:00 [facility] 2022-01-22 2022-01-22 (TEL) STLMLC STLMLC [id number] Co mmon 00:00:00 00:00:00 [facility] 2021-12-03 2021-12-03 OFFICE STLMLC STLMLC [id number] Co mmon 00:00:00 00:00:00 [facility] ESTAB PT - CHI LEVEL 4 [facility] 2021-11-04 2021-11-04 OFFICE STLMLC STLMLC [id number] Co mmon 00:00:00 00:00:00 [facility] ESTAB PT - CHI LEVEL 4 [facility] 2021-10-30 2021-10-30 (TEL) STLMLC STLMLC [id number] Co mmon 00:00:00 00:00:00 [facility] 2021-09-04 2021-09-04 (TEL) STLMLC STLMLC [id number] Co mmon 00:00:00 00:00:00 [facility] 2021-09-04 2021-09-04 OFFICE STLMLC STLMLC [id number] Co mmon 00:00:00 00:00:00 [facility] ESTAB PT - CHI LEVEL 4 [facility] 2021-09-04 2021-09-04 SUB ANNUAL STLMLC STLMLC [id number] Common 00:00:00 00:00:00 MCR [facility] WELLNESS - CHI VISIT [facility] 2021-07-31 2021-07-31 (TEL) STLMLC STLMLC [id number] Co mmon 00:00:00 00:00:00 [facility] 2021-05-27 2021-05-27 OFFICE STLMLC STLMLC [id number] Co mmon 00:00:00 00:00:00 VISIT EST Spir it PT LEVEL 3 - [facility] 2021-05-27 2021-05-27 (TEL) STLMLC STLMLC [id number] Co mmon 00:00:00 00:00:00 [facility] 2021-02-10 2021-02-10 OFFICE STLMLC STLMLC [id number] Co mmon 00:00:00 00:00:00 VISIT [facility] PT - CHI LEVEL 4 [facility] 2021 2021 (HOSP F/U) STLMLC STLMLC [id number] Common 00:00:00 00:00:00 Hospital Spiri t Follow Up - [facility] 2021-01-23 2021-01-23 (TEL) STLMLC STLMLC [id number] Co mmon 00:00:00 00:00:00 [facility] 2020-11-14 2020-11-14 OFFICE STLMLC STLMLC [id number] Co mmon 00:00:00 00:00:00 VISIT [facility] PT - CHI LEVEL 4 [facility] 2020-11-14 2020-11-14 SUB ANNUAL STLMLC STLMLC [id number] Common 00:00:00 00:00:00 MCR [facility] WELLNESS - [facility] VISIT [facility] 2020-08-13 2020-08-13 Outpatient STLMLC STLMLC [id number] Common 00:00:00 00:00:00 [facility] 2020-06-11 2020-06-11 Outpatient STLMLC STLMLC [id number] Common 00:00:00 00:00:00 [facility] 2020-04-23 2020-04-23 Outpatient STLMLC STLMLC [id number] Common 00:00:00 00:00:00 [facility] 2020-04-16 2020-04-16 Outpatient STLMLC STLMLC [id number] Common 00:00:00 00:00:00 [facility] 2020-04-15 2020-04-15 Outpatient STLMLC STLMLC [id number] Common 00:00:00 00:00:00 [facility] 2020-01-17 2020-01-17 Outpatient STLMLC STLMLC [id number] Common 00:00:00 00:00:00 [facility] 2020-01-15 2020-01-15 Outpatient STLMLC STLMLC [id number] Common 00:00:00 00:00:00 [facility] 2019-11-30 2019-11-30 Outpatient STLMLC STLMLC [id number] Common 00:00:00 00:00:00 [facility] 2019-11-16 2019-11-16 Outpatient STLMLC STLMLC [id number] Common 00:00:00 00:00:00 [facility] 2019-10-26 2019-10-26 [id number] Common 10:15:00 10:15:00 t Specialty/U Sp eliza Specialty rology - [facility] 2019-10-18 2019-10-18 [facility] [place] [id number] Common 11:40:00 11:40:00 t Insmed [facility] it [employer] [facility] 2019-10-10 2019-10-10 [facility] [id number] Common 09:00:00 09:00:00 t Specialty/U Sp eliza Specialty rology - [facility] 2019-09-27 2019-09-27 [facility] [id number] Common 10:00:00 10:00:00 t Specialty/U Sp eliza Specialty rology - [facility] 2019-09-26 2019-09-26 [facility] [id number] Common 11:15:00 11:15:00 t Specialty/U Sp eliza Specialty rology - [facility] 2019-09-06 2019-09-06 [facility] [id number] Common 14:14:00 14:14:00 t Specialty/U Sp eliza Specialty rology - [facility] 2019-08-09 2019-08-09 [facility] [id number] Common 10:30:00 10:30:00 t Specialty/U Sp eliza Specialty rology - [facility] 2019-08-07 2019-08-07 [facility] [id number] Common 09:45:00 09:45:00 t Specialty/U Sp eliza Specialty rology - [facility] 2019-07-31 2019-07-31 [facility] [id number] Common 09:29:00 09:29:00 t Specialty/U Sp eliza Specialty rology - [facility] 2019-07-27 2019-07-27 [facility] [id number] Common 13:45:00 13:45:00 t Specialty/U Sp eliza Specialty rology - [facility] /Urology Clinic [facility] 2019-07-24 2019-07-24 [facility] [id number] Common 08:08:00 08:08:[address] [facility] 2019-07-18 2019-07-18 [facility] [id number] Common 10:30:00 10:30:[address] [facility] 2019-07-04 2019-07-04 [facility] [id number] Common 14:52:00 14:52:[address] [facility] 2019-04-13 2019-04-13 [facility] [id number] Common 09:15:00 09:15:[address] [facility] 2019-04-13 2019-04-13 [facility] [id number] Common 09:00:00 09:00:[address] [facility] 2019-03-29 2019-03-29 [facility] [id number] Common 15:50:00 15:50:[address] [facility] 2018-12-27 2018-12-27 [facility] [id number] Common 16:30:00 16:30:[address] [facility] 2018-12-19 2018-12-19 [facility] [id number] Common 16:47:00 16:47:[address] [facility] 2018-12-19 2018-12-19 [facility] [id number] Common 16:04:00 16:04:[address] [facility] 2018-10-05 2018-10-05 [facility] [id number] Common 16:53:00 16:53:[address] [facility] 2018-10-03 2018-10-03 [facility] [id number] Common 14:09:00 14:09:[address] [facility] 2018-08-02 2018-08-02 [facility] [id number] Common 10:00:00 10:00:[address] [facility] 2018-06-14 2018-06-14 [facility] [id number] Common 10:36:00 10:36:[address] [facility] 2018-04-20 2018-04-20 [facility] [id number] Common 08:30:00 08:30:[address] [facility] 2018-01-20 2018-01-20 [facility] [id number] Common 08:30:00 08:30:[address] [facility] 2018-01-19 2018-01-19 [facility] [id number] Common 10:01:00 10:01:[address] [facility] 2017-11-02 2017-11-02 [facility] [id number] Common 13:45:00 13:45:[address] [facility] 2017-08-10 2017-08-10 [facility] [id number] Common 14:45:00 14:45:[address] [facility] 2017-05-28 2017-05-28 [facility] [id number] Common 10:15:00 10:15:[address] [facility] Results Test Description Test Time Test Comments Results Result Comments Source BLOOD CULTURE 2022-06-10 10:00:52 Test Item Value Reference Range Interpretation Comme nts CULTURE (BEAKER) (test code = 1095) No growth in 5 days BLOOD [id number] 10:00:52 Test Item Value Reference Range Interpretation Comments CULTURE (BEAKER) (test No growth in 5 days code = 1095) POC-Glucose [id number] 12:17:25 Test Item Value Reference Range Interpretation Comments POC-Glucose Meter (test 152 mg/dL 70-110 H : TE STED AT [facility] code = 1538) [address] [place] [id number]: Process Operator/Techni rasheeda ID = [id number] for Abhishek Farideh ee Lab Interpretation (test Abnormal code = 47739-3) [facility] [id number] 12:17:25 Test Item Value Reference Range Interpretation Comments POC-Glucose Meter (test 152 mg/dL 70-110 H : TE STED AT [facility] code = 1538) [address] [place] [place] 079398: Process Operator/Techni rasheeda ID = [id number] for Abhishek Farideh ee Lab Interpretation (test Abnormal code = 76866-5) [facility] [id number] 12:17:25 Test Item Value Reference Range Interpretation Comments POC-GLUCOSE METER 152 mg/dL 70-110 H : TESTED A T [facility] 1317 (BEAKER) (test code [facility], = 1538) [place] [id number]: Process Operator/Techni rasheeda ID = [id number] for Will iams, [place] RAD, CHEST, 1 VIEW, NON [id number] 07:24:00Reason for exam:->Right lower lobar pnemonia follow-upShould this be performed at the bedside?->Yes [facility] 1950 Sex: MFINAL REPORT Chest one view: HISTORY: Right lower lobe pneumonia follow- up There are no prior studies for comparison. Mild airspace opacities are present in the right lung base. There is no pleural effusion. The cardiomediastinal silhouette is within normal limits. The bony thorax appears in tact. Signed: Syd Zavala [facility] Ver[facility] Date/Time: 06/07/2022 07:24:55 -GLUCOSE [id number] 06:29:56 Test Item Value Reference Range Interpretation Comments POC-GLUCOSE METER 121 mg/dL 70-110 H : TESTED A T [facility] 1317 (BEAKER) (test code [address], = 1538) [facility] 77 478: Process Operator/Techni rasheeda ID = [id number] for Effie Molina BASIC METABOLIC [id number] 06:04:12 Test Item Value Reference Range Interpretation [...] not appl icable for dialysis patien ts Process Operator ID - [id number] ID - [id number] ID - TCNODLXFF463Xiiflqkw ID - DTUGAEWRK858Bbprktuy ID - YGEECGRVF418Xlyckufs ID - FYNMJHFWR474Gbixwtfa ID - PLKPKMBFX663Jhdjocdm ID - CGVTUESCY228Gecmsumh ID - KEERHHRCT458Sxymtysf ID - VPAUOYKAZ848Talyzofv ID - UMLPMDNMN723Ncwvwdqc ID - [id number] W/PLT COUNT & AUTO [id number] 05:54:59 Test Item Value Reference Range Interpretation [...] PERCENT (BEAKER) (test code = 2801) POCT-GLUCOSE [id number] 22:13:06 Test Item Value Reference Range Interpretation Comments POC-GLUCOSE METER 177 mg/dL 70-110 H : TESTED A T [facility] [address]17 (BEAKER) (test code [address], = 1538) [place] [address]: Process Operator/Techni rasheeda ID = [id number] for Effie Molina POCT-GLUCOSE [id number] 15:57:48 Test Item Value Reference Range Interpretation Comments POC-GLUCOSE METER 159 mg/dL 70-110 H : TESTED A T [facility] [address] (BEAKER) (test code [address], = 1538) [place] [id number]: Process Operator/Techni rasheeda ID = [id number] for Will Inida marrero [id number] 13:23:05 Test Item Value Reference Range Interpretation Comments PROCALCITONIN (BEAKER) (test code = < ng/mL <0.05 3036) SEPSIS RISK (ng/mL)Low: 0.05-0.50Intermediate: 0.51-2.00High: >=2.01POCT- GLUCOSE [id number] 12:14:53 Test Item Value Reference Range Interpretation Comments POC-GLUCOSE METER 114 mg/dL 70-110 H : TESTED A T [facility] [address] (BEAKER) (test code [address] [facility], = 1538) [place] [address]: Process Operator/Techni rasheeda ID = [id number] for [place] Trinh POCT-GLUCOSE [id number] 06:42:47 Test Item Value Reference Range Interpretation Comments POC-GLUCOSE METER 174 mg/dL 70-110 H : TESTED A T [facility] (BEAKER) (test code [facility], = 1538) [place] [address]: Process Operator/Techni rasheeda ID = [id number] for Breanna Saul [id number] 06:09:17 Test Item Value Reference Range Interpretation Comments D-DIMER QUANTITATIVE 0.30 MG/L FEU <0.50 Final Information ([facility]) (test code = (Auto Output) 671) REGARDING D-DIMER RESULTS: The 98% NPV (Negative Predictive Value) for DVT/PE exclusion is 0.50 mg/LFEU as suggested by the manager of creative services and as approved by the FDA.C-REACTIVE [id number] 06:03:59 Test Item Value Reference Range Interpretation Comments C-REACTIVE PROTEIN (BEAKER) (test 10.74 mg/dL 0.00-0.50 H code = 676) Process Operator ID - [id number] METABOLIC [id number] 06:03:07 Test Item Value Reference Range Interpretation [...] not appl icable for dialysis patien ts Process Operator ID - [id number] ID - CCRM70Gkvqcuib ID - JYRK84Guzzyapz ID - JRYC79Mlcgjjsu ID - FOEB72Iumfjfwz ID - GLZW55Yqhldcly ID - EKSN16Xkyzruqk ID - VZJL89Qphormjz ID - KYUX57Dploshgs ID - ASPY42Cmjblexc ID - HFZU19Gyqaajhz ID - [id number] W/PLT COUNT & AUTO [id number] 05:46:10 Test Item Value Reference Range Interpretation [...] (BEAKER) (test code = 2801) Sodium, random [id number] 23:01:58 Test Item Value Reference Range Interpretation Comments Sodium Urine (test 55 meq/L code = 2955-3) MALLORY (test code = Reference Range: No MALLORY) NormalsOperator ID - [id number] [facility] [id number] 23:01:58 Test Item Value Reference Range Interpretation Comments Sodium Urine (test 55 meq/L code = 2955-3) MALLORY (test code = Reference Range: No MALLORY) NormalsOperator ID - [id number] [facility] CenterODIUM, RANDOM [id number] 23:01:58 Test Item Value Reference Range Interpretation Comments SODIUM URINE (BEAKER) (test code = 55 meq/L 243) Reference Range: No NormalsOperator ID - [id number] 20:22:26 Test Item Value Reference Range Interpretation Comments POC-GLUCOSE METER 180 mg/dL 70-110 H : TESTED A T [facility] [address] (BEAKER) (test code [address], = 1538) [place] [address]: Process Operator/Techni rasheeda ID = [id number] for Breanna Saul [id number] 18:10:36 Test Item Value Reference Range Interpretation Comments D-DIMER QUANTITATIVE 0.31 MG/L FEU <0.50 Final Information ([facility]) (test code = (Auto Output) 671) REGARDING D-DIMER RESULTS: The 98% NPV (Negative Predictive Value) for DVT/PE exclusion is 0.50 mg/LFEU as suggested by the manager of creative services and as approved by the FDA.[id number] 17:43:53 Test Item Value Reference Range Interpretation Comments SODIUM (BEAKER) (test code = 381) 133 meq/L 135-148 L Process Operator ID - [id number] 16:28:23 Test Item Value Reference Range Interpretation Comments POC-GLUCOSE METER 149 mg/dL 70-110 H : TESTED A T [facility] [address] (BEAKER) (test code [address], = 1538) [place] [address]: Process Operator/Techni rasheeda ID = [id number] for Natty Berger Strep pneumoniae [id number] 14:13:59 Test Item Value Reference Range Interpretation Comments Strep pneumoniae Presumptive negative Presumptive Antigen (test code = [place] [address]-8) pneumonia - see pneumococcal comment pneumonia - [...] test. Lab Interpretation Normal (test code = 57944-4) [facility] Cent[facility] pneumoniae [id number] 14:13:59 Test Item Value Reference Range Interpretation Comments Strep pneumoniae Presumptive negative Presumptive Antigen (test code = [place] [address]-2) pneumonia - see pneumococcal comment pneumonia - [...] test. Lab Interpretation Normal (test code = 48226-2) [facility] CenterTREP PNEUMONIAE [id number] 14:13:59 Test Item Value Reference Range Interpretation Comments STREP PNEUMONIAE Presumptive negative Presumptive negative ANTIGEN (BEAKER) for pneumococcal for pneumococcal (test code = 1615) pneumonia - see pneumonia - see comment commen Presumptive negative for pneumococcal pneumonia, suggesting no current or recent pneumococcal infection. Infection due to S. pneumoniae cannot be ruled out since the antigen present in the sample may be below the detection limit of the test. Osmolality, [id number] 14:09:29 Test Item Value Reference Range Interpretation Comments Osmolality, Ur (test code 627 See_Comment [ Automated message] = 2695-5) The system [employer] generated this result transmitted ref erence range: 50-1,200 mOsm/kg mOsm/kg . The reference range was not used to int erpret this result as normal/abnormal . Lab Interpretation (test Normal code = 58928-4) [facility] Hospital[facility]sm[facility], [id number] 14:09:29 Test Item Value Reference Range Interpretation Comments Osmolality, Ur (test code 627 See_Comment [ Automated message] = 2695-5) The system [employer] generated this result transmitted ref erence range: 50-1,200 mOsm/kg mOsm/kg . The reference range was not used to int erpret this result as normal/abnormal . Lab Interpretation (test Normal code = 72016-4) [facility] HospitalOSMOLALITY, [id number] 14:09:29 Test Item Value Reference Range Interpretation Comments OSMOLALITY URINE 627 mOsm/kg See_Comment [Automated message] (BEAKER) (test code = The stem which 614) generated this result transmitted ref erence range: 50-1,200 mOsm/kg. The reference range was not used to int erpret this result as normal/abnormal . C-REACTIVE [id number] 09:00:28 Test Item Value Reference Range Interpretation Comments C-REACTIVE PROTEIN (BEAKER) (test 15.24 mg/dL 0.00-0.50 H code = 676) Process Operator ID - [id number] 07:12:01 Test Item Value Reference Range Interpretation Comments POC-GLUCOSE METER 103 mg/dL 70-110 : TESTED A T [facility] (BEAKER) (test code [address], = 1538) [facility] 77 478: Process Operator/Techni rasheeda ID = [id number] for Yana Barry TROPONIN [id number] 05:28:57 Test Item Value Reference Range Interpretation [...] failure, acidosis, acute neurological disease, and persistent tachyarrhythmia.Process Operator ID - LITOHEMOGLOBIN A1C 2022-06-05 05:27:58 Test Item Value Reference Range Interpretation Comments HEMOGLOBIN A1C (BEAKER) (test code = 6.5 % 4.3-6.1 H 368) Process Operator ID - LITOSODIUM, RANDOM [id number] 05:26:55 Test Item Value Reference Range Interpretation Comments SODIUM URINE (BEAKER) (test code = 65 meq/L 243) Reference Range: No NormalsOperator ID - [id number] 05:17:32 Test Item Value Reference Range Interpretation Comments MAGNESIUM (BEAKER) (test code = 1.9 mg/dL 1.5-3.0 627) Process Operator ID - LITOOperator ID - LITOOperator ID - LITOOperator ID - CHARIS COMPREHENSIVE METABOLIC [id number] 05:17:25 Test Item Value Reference Range Interpretation [...] high >=90 G2 Mildly decreased 60-89 G3a Mild ly to moderately 45-5 9 G3b Moderately to [...] not appl icable for dialysis patien ts Process Operator ID - LITOOperator ID - LITOOperator ID - LITOOperator ID - LITOOperator ID - LITOOperator ID - LITOOperator ID - LITOOperator ID - LITOOperator ID - LITOOperator ID - LITOOperator ID - LITOOperator ID - LITOOperator ID - LITOOperator ID - LITOOperator ID - LITOOperator ID - LITOLIPID [id number] 05:16:47 Test Item Value Reference Range Interpretation [...] Borderline 130-159 High 160-189 Very High >=190 Process Operator ID - LITOOperatorID - LITOOperator ID - LITOBlood gas, [id number] 05:14:45 Test Item Value Reference Range Interpretation Comments pH, Arterial (test code 7.43 7.35-7.45 = 2744-1) pCO2, Arterial (test 36 See_Comment [Autom ated code = 2019-8) message] The system which generated this result [...] = 2708-6) HCO3, Arterial (test 24 mmol/L 21-29 code = 1960-4) Base Excess, Arterial -0.5 mmol/L -2.0-3.0 (test code = 1925-7) Patient Temperature 36.5 (test code = 8310-5) FIO2 (test code = 1819) 28 Lab Interpretation Abnormal (test code = 86737-8) [facility], [id number] 05:14:45 Test Item Value Reference Range Interpretation Comments pH, Arterial (test code 7.43 7.35-7.45 = 2744-1) pCO2, Arterial (test 36 See_Comment [Autom ated code = 2019-8) message] The system which generated this result [...] = 2708-6) HCO3, Arterial (test 24 mmol/L 21-29 code = 1960-4) Base Excess, Arterial -0.5 mmol/L -2.0-3.0 (test code = 1925-7) Patient Temperature 36.5 (test code = 8310-5) FIO2 (test code = 1819) 28 Lab Interpretation Abnormal (test code = 15218-4) [facility] GAS, [id number] 05:14:45 Test Item Value Reference Range Interpretation Comments PH ARTERIAL (BEAKER) (test code = 7.43 7.35-7.45 383) PCO2 ARTERIAL (BEAKER) (test code 36 mm Hg 35-45 = 384) PO2 ARTERIAL (BEAKER) (test code 110 mm Hg 80-90 H = 385) O2 SATURATION ARTERIAL (BEAKER) 98.3 % 96.0-97.0 H (test code = 386) HCO3 ARTERIAL (BEAKER) (test code 24 mmol/L 21-29 = 388) BASE EXCESS ARTERIAL (BEAKER) -0.5 mmol/L -2.0-3.0 (test code = 387) PATIENT TEMPERATURE (BEAKER) 36.5 (test code = 1818) FIO2 (BEAKER) (test code = 1819) 28.0 PROTHROMBIN TIME/[id number] 05:14:04 Test Item Value Reference Range Interpretation [...] is 2.5-3.5 for patients with mechanical heart valves.[id number] 05:14:03 Test Item Value Reference Range Interpretation Comments PHOSPHORUS (BEAKER) (test code = 3.7 mg/dL 2.5-4.5 604) Process Operator ID - LITOCBC W/PLT COUNT & AUTO [id number] 05:03:57 Test Item Value Reference Range Interpretation [...]
--- NOTE | 2022-06-19 11:51 | RAD REPORT ---
EXAM DESCRIPTION: RAD - Chest Single View - 06/19/2022 11:43 am CLINICAL HISTORY: lower extremity swelling COMPARISON: Chest Single View dated 06/11/2022; Chest Single View dated 06/04/2022; Chest Single View d ated 12/28/2021; Chest Single View dated 12/27/2021 FINDINGS: Lines: None. Lungs: No evidence of edema or pneumonia. Pleural: No significant pleural effusions or pneumothorax. Cardiac: The heart size is within normal limits. Mediastinum: Within normal limits. Bones: No acute fractures. Other: None IMPRESSION: No acute cardiopulmonary disease.
[2022-06-19 12:39] LABS: Hematocrit 36.6 % (39.6-49.0); MCV 87.9 fL (80-100); MPV 7.6 fL (7.6-11.3); RBC Red Blood Cell Count 4.16 M/uL (4.33-5.43)
[2022-06-19 12:54] LABS: Potassium 4.8 mEq/L (3.5-5.1)
[2022-06-19] MEDS ORDERED: FUROSEMIDE 40 MG/4 ML VIAL ONE (13:02)
[2022-06-19 13:25] LABS: Blood Morphology Comment NOT SEEN (NOT SEEN); Platelet Estimate ADEQ
--- NOTE | 2022-06-19 13:56 | RAD REPORT ---
EXAM DESCRIPTION: US - Extrem Venous W Compress [place] - 06/19/2022 1:48 pm CLINICAL HISTORY: SWELLING Bilateral leg edema and swelling. COMPARISON: No comparisons TECHNIQUE: Real-time sonographic interrogation of the left and right lower extremity deep venous sys tems was performed. FINDINGS: Normal compressibility, flow augmentation, phasic flow and spontaneous flow is identified in both the left and right lower extremity deep venous systems. IMPRESSION: No sonographic evidence of left or right lower extremity deep venous thrombosis.
[2022-06-19 15:53] LABS: Specific Gravity 1.014 (1.005-1.030); Urine Bilirubin NEGATIVE (Negative); Urine Blood Negative (Negative); Urine Clarity Clear (Clear); Urine Color Light-Yellow (Yellow); Urine Glucose NEGATIVE (Negative); Urine Protein NEGATIVE (Negative); Urine Urobilinogen Normal (Normal)
--- NOTE | 2022-06-19 16:36 | EDPHYS ---
Physician Documentation [facility] Name: Jose Marcelino Age: 72 yrs Sex: Male : 1950 Arrival Date: 06/19/2022 Time: 10:56 Bed 17 Private MD: Joel [facility] ED Physician Jose Albright HPI: 06/19 16:53 This 72 yrs old Male presents to ER via Wheelchair with complaints of Feet Swelling. kdr 16:53 Patient presents with generalized lower extremity swelling bilaterally. Been going on kdr for a few days. Patient denies similar episodes previously. Patient has no other symptoms. Patient is without other complaints. Patient is nontoxic and not emergent in the ED on initial presentation. Onset: The symptoms/episode began/occurred 1 week(s) ago. Severity of symptoms: At their worst the symptoms were mild in the emergency department the symptoms are unchanged. The patient has not experienced similar symptoms in the past. The patient has not recently seen a physician. Historical: - Allergies: 11:05 Atrovent; hb - PMHx: 11:05 Chronic obstructive lung disease; diabetes mellitus; Hypertensive disorder; hb - Immunization history:: Adult Immunizations up to date. - Social history:: Smoking status: Patient reports the use of cigarette tobacco products, denies chronic smoking, but will smoke occasionally. ROS: 16:53 Constitutional: Negative for fever, chills, and weight loss, Eyes: Negative for injury, kdr pain, redness, and discharge, Neck: Negative for injury, pain, and swelling, Cardiovascular: Negative for chest pain, palpitations, and edema, Respiratory: Negative for shortness of breath, cough, wheezing, and pleuritic chest pain, Abdomen/GI: Negative for abdominal pain, nausea, vomiting, diarrhea, and constipation, Back: Negative for injury and pain, : Negative for injury, bleeding, discharge, and swelling, MS/Extremity: Negative for injury and deformity. 16:53 Skin: Negative for injury, rash, and discoloration, Neuro: Negative for headache, weakness, numbness, tingling, and seizure activity. Psych: Negative for depression, anxiety, suicide ideation, homicidal ideation, and hallucinations, Allergy/Immunology: Negative for hives, rash, and allergies, Endocrine: Negative for neck swelling, polydipsia, polyuria, polyphagia, and marked weight changes, Hematologic/Lymphatic: Negative for swollen nodes, abnormal bleeding, and unusual bruising. 16:53 Cardiovascular: Positive for edema. Exam: 16:53 Constitutional: This is a well developed, well nourished patient who is awake, alert, kdr and in no acute distress. Head/Face: Normocephalic, atraumatic. Eyes: Pupils equal round and reactive to light, extra-ocular motions intact. Lids and lashes normal. Conjunctiva and sclera are non-icteric and not injected. Cornea within normal limits. Periorbital areas with no swelling, redness, or edema. Neck: Trachea midline, no thyromegaly or masses palpated, and no cervical lymphadenopathy. Supple, full range of motion without nuchal rigidity, or vertebral point tenderness. No Meningismus. Chest/axilla: Normal chest wall appearance and motion. Nontender with no deformity. No lesions are appreciated. Cardiovascular: Regular rate and rhythm with a normal S1 and S2. No gallops, murmurs, or rubs. Normal PMI, no JVD. No pulse deficits. Respiratory: Lungs have equal breath sounds bilaterally, clear to auscultation and percussion. No rales, rhonchi or wheezes noted. No increased work of breathing, no retractions or nasal flaring. 16:53 Respiratory: the patient does not display signs of respiratory distress, Respirations: normal, Breath sounds: rales, that are mild, are scattered, are heard diffusely, Minimal scattered crackles on exam. Vital Signs: 11:04 BP 136 / 56; Pulse 93; Resp 18; Temp 98.1; Pulse Ox 95% on R/A; Weight 68.95 kg; Height hb 5 ft. 8 in. ; Pain 0/10; 13:14 BP 157 / 71; Pulse 74; Pulse Ox 98% on R/A; ap3 11:04 Body Mass Index 23.11 (68.95 kg, 172.72 cm) hb 11:04 Pain Scale: Adult hb MDM: 16:35 Patient medically screened. kdr 16:53 Data reviewed: vital signs, nurses notes, old medical records, EKG. [facility] 06/19 11:32 Order name: Basic Metabolic Panel; Complete Time: 13:55 kdr 06/19 11:32 Order name: CBC with Diff; Complete Time: 13:55 kdr 06/19 11:32 Order name: NT PRO-BNP; Complete Time: 13:55 kdr 06/19 11:32 Order name: Troponin HS; Complete Time: 13:55 [facility] 06/19 13:25 Order name: Manual Differential; Complete Time: 13:55 [facility] 06/19 13:56 Order name: Urinalysis w/ reflexes; Complete Time: 16:33 kdr 06/19 11:32 Order name: XRAY Chest (1 view); Complete Time: 13:55 [facility] 06/19 11:50 Order name: US Extremity Venous W Compression Gilson; Complete Time: 15:10 kdr 06/19 11:32 Order name: IV Saline Lock; Complete Time: 13:10 kdr 06/19 11:32 Order name: Labs collected and sent; Complete Time: 12:22 [facility] 06/19 11:32 Order name: O2 Sat Monitoring; Complete Time: 12:22 kdr Administered Medications: 13:13 Drug: Furosemide IVP 40 mg Route: IVP; Site: right forearm; ap3 16:47 Follow up: Response: No adverse reaction ap3 Disposition Summary: 06/19/22 16:35 Discharge Ordered Location: Home kdr Problem: new kdr Symptoms: have improved kdr Condition: Stable kdr Diagnosis - Edema, unspecified kdr - Localized edema - Bilateral feet and ankles kdr Followup: kdr - With: Uri Maldonado DO - When: 2 - 3 days - Reason: If symptoms return, Further diagnostic work-up, Recheck today's complaints, Continuance of care, Re-evaluation by your physician Discharge Instructions: - Discharge Summary Sheet kdr - Edema, [id number] kdr - Peripheral Edema kdr Forms: - Medication Reconciliation Form kdr - Thank You Letter kdr Prescriptions: - Lasix 20 mg Oral Tablet - take 1 tablet by ORAL route once daily; 20 tablet; Refills: 0, Product kdr Selection Permitted Signatures: Dispatcher [employer] Jose Garza MD MD kdr Sudha Quigley RN RN hb Prokisch, Amanda, RN RN ap3
--- NOTE | 2022-06-19 16:36 | ER ---
Nurse's Notes [facility] Name: Joes Marcelino Age: 72 yrs Sex: Male : 1950 Arrival Date: 06/19/2022 Time: 10:56 Bed 17 Private MD: Uri Maldonado Diagnosis: Edema, unspecified;Localized edema-Bilateral feet and ankles Presentation: 06/19 11:04 Chief complaint: Bilateral lower leg and foot swelling x 2 days. COVID positive x 1 hb week. Coronavirus screen: At this time, the client does not indicate any symptoms associated with coronavirus-19. Ebola Screen: No symptoms or risks identified at this time. Initial Sepsis Screen: Does the patient meet any 2 criteria? No. Patient's initial sepsis screen is negative. Does the patient have a suspected source of infection? No. Patient's initial sepsis screen is negative. Risk Assessment: Do you want to hurt yourself or someone else? Patient reports no desire to harm self or others. Onset of symptoms was June 18, 2022. 11:04 Method Of Arrival: Wheelchair 11:04 Acuity: PHUC 3 hb Triage Assessment: 12:22 General: Appears in no apparent distress. Behavior is calm, cooperative. Pain: Denies ap3 pain. Neuro: Level of Consciousness is awake, alert, obeys commands, Oriented to person, place, time, situation. Cardiovascular: Patient's skin is warm and dry. Respiratory: Airway is patent Respiratory effort is even, unlabored, Respiratory pattern is regular, symmetrical. Derm:. Musculoskeletal: Swelling present in right foot and left foot. Historical: - Allergies: 11:05 Atrovent; hb - PMHx: 11:05 Chronic obstructive lung disease; diabetes mellitus; Hypertensive disorder; hb - Immunization history:: Adult Immunizations up to date. - Social history:: Smoking status: Patient reports the use of cigarette tobacco products, denies chronic smoking, but will smoke occasionally. Screenin:22 [facility] ED Fall Risk Assessment (Adult) History of falling in the last 3 months, ap3 including since admission No falls in past 3 months (0 pts). Abuse screen: Denies threats or abuse. Nutritional screening: No deficits noted. Tuberculosis screening: No symptoms or risk factors identified. Vital Signs: 11:04 BP 136 / 56; Pulse 93; Resp 18; Temp 98.1; Pulse Ox 95% on R/A; Weight 68.95 kg; Height hb 5 ft. 8 in. ; Pain 0/10; 13:14 BP 157 / 71; Pulse 74; Pulse Ox 98% on R/A; ap3 11:04 Body Mass Index 23.11 (68.95 kg, 172.72 cm) hb 11:04 Pain Scale: Adult hb ED Course: 10:58 Patient arrived in ED. mr 10:58 Uir Maldonado DO is Private Physician. mr 11:05 Triage completed. hb 11:05 Arm band placed on. hb 11:10 Jose Albright MD is Attending Physician. kdr 11:11 Alessia Tobias, RAMON is Primary Nurse. ap3 11:45 XRAY Chest (1 view) In Process Unspecified. EDMS 12:22 Initial lab(s) drawn, by me, sent to lab. Missed attempt(s): 20 gauge in left ap3 antecubital area. Bleeding controlled, band aid applied, catheter tip intact. 12:23 Bed in low position. Call light in reach. Side rails up X 1. Pulse ox on. NIBP on. Door ap3 closed. Noise minimized. 13:11 Inserted saline lock: 22 gauge in right forearm, using aseptic technique. jl7 13:49 US Extremity Venous W Compression Gilson In Process Unspecified. EDMS 15:39 Urinalysis w/ reflexes Sent. zm 16:34 Uri Maldonado DO is Referral Physician. kdr 16:46 IV discontinued, intact, bleeding controlled, No redness/swelling at site. Pressure ap3 dressing applied. 16:47 No provider procedures requiring assistance completed. ap3 Administered Medications: 13:13 Drug: Furosemide IVP 40 mg Route: IVP; Site: right forearm; ap3 16:47 Follow up: Response: No adverse reaction ap3 Medication: 12:23 VIS not applicable for this client. ap3 Outcome: 16:35 Discharge ordered by . kdr 16:46 Discharged to home ap3 16:46 Condition: good 16:46 Discharge instructions given to patient, Instructed on discharge instructions, follow up and referral plans. medication usage, Demonstrated understanding of instructions, follow-up care, medications, Prescriptions given X 1. 17:00 Patient left the ED. ap3 Signatures: Dispatcher [employer] EDMS Jose Albright MD MD kdr Pollard, Effie mr Sudha Quigley, RN RN Fernando Rodriguez RN RN [id number] Alessia Tobias RN RN ap3 Virginia Masterson Corrections: (The following items were deleted from the chart) 16 14:48 No provider procedures requiring assistance completed. ap3 ap3 14:48 Patient admitted, IV remains in place. ap3 ap3 14:48 Condition: good ap3 ap3 14:48 Admitted to Med/surg ap3 ap3 16: 14:48 Discharge instructions given to family, Instructed on the need for admit, ap3 ap3
[2022-06-19 17:11] VITALS: TEMP 98.1
[2022-06-19 17:12] VITALS: BP 157/71; O2SAT 98
== END 2022-06-19 17:00 | disposition home or self-care (01) ==
LOC: ER 10:56
DX: R60.0 Localized edema (principal); E11.9 Type 2 diabetes mellitus without complications; I10 Essential (primary) hypertension; F17.210 Nicotine dependence, cigarettes, uncomplicated; Z88.8 Allergy status to other drugs, medicaments and biological substances
CPT/HCPCS: 85025; 80048; 36415; 81003; 84484; 83880; 71045; 93970; 96374; 99284; J1940

== ENCOUNTER 2023-01-01 16:06 | Inpatient (IN) | payer OTHER ==
--- OUTSIDE RECORDS SUMMARY | 2023-01-01 16:13 | XMS REPORT | Continuity of Care Document ---
:1950 Author Organization [facility] Address [address] [facility] [address] [place] [address] Care Team Providers Name Role Phone No, Pcp [facility] Primary Care Physician Unavailable Uri Maldonado Attending Clinician Unavailable LEOBARDO JOHNSON Attending Clinician Unavailable Laura Shah MD Attending Clinician Nikolas Reeves MD Attending Clinician [phone] NIKOLAS REEVES Attending Clinician Unavailable LAURA SHAH Admitting Clinician Unavailable Payers Payer Name Policy Type Policy Number Effective Date Expiration Date S ource [employer] 2 [id number] 2022 [facility] ADV 00:00:00 [facility] HealthSelect 1 [id number] Common TRS/ERS [facility] PPO [facility] - [facility] Problems Condition Condition Condition Status Onset Resolution Last Treating Co mments Source Name Details Category Date Date Treatment Clinician Date Pneumonia Pneumonia Disease Active [facility] 06-05 [facility] 00:00: Medical [address] [place] [address] [id number] COPD with Problem Com mon exacerbati Spirit on [facility] Urine Urinary Problem Common incontinen incontinen Sp eliza ce ce, - [facility]I unspecifie [facility] d [facility] Chronic Chronic Problem Common back pain back pain Spir it - [facility] 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, - [facility]I interverte cervical [facility] bral disc [facility] [id number] Chronic Problem Common neutrophil Spirit ia - CHI [facility] Hyperglyce Hyperglyce Problem C ommon heriberto heriberto Spirit [facility] Benign Benign Problem Common essential essential Spir it hypertensi hypertensi - CHI on on [facility] Migraine Migraine, Problem Comm on unspecifie Spirit d, not - CHI intractabl St e, without [facility] status Medical migrainosu Center s 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 - [facility] Osteoarthr OA Problem Commo n itis (osteoarth Spirit ritis) - [facility] Tobacco Tobacco Problem Common use use Spirit disorder - [facility] Depression Depression Problem C [facility] History of H/O: CVA Problem Com mon cerebrovas (cerebrova Sp eliza cular scular - [facility] accident accident) [facility] residual Medical deficits Center [id number] Controlled Problem Co mmon type 2 Spirit diabetes - CHI mellitus [facility] complicati Medica l on, Center 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 Spirit - [facility] Sciatica Sciatica Problem Commo n Spirit CHI [facility] Mixed Hyperlipid Problem Commo n hyperlipid emia, Spirit emia mixed [facility] [id number] Hypercalce Problem Com mon heriberto Spirit [facility] [id number] Noncomplia Problem Co mmon nce with Spirit dietary - CHI restrictio [facility] [id number] Type 2 Problem Common diabetes Spirit mellitus - CHI with St hyperglyce [facility] Medical without Center long-term current use of insulin Hypertensi Hypertensi Problem C ommon ve heart ve heart Spirit failure disease - CHI with heart St failure [facility] Diabetes Diabetes Disease Recurre CHI St mellitus mellitus nce [facility] COPD COPD Disease Recurre [facility]I St (chronic (chronic nce [facility] obstructiv obstructiv Me dical e e Center pulmonary pulmonary disease) disease) Hypertensi Hypertensi Disease Active C HI St on on [facility] Allergies, Adverse Reactions, Alerts Allergy Allergy Status Severity Reaction(s) Onset Inactive Treating Comm ents Source Name Type Date Date Clinician Ipratrop Propensi Active [facility] adverse 00:00: Medical reaction 00 Center s IPRATROP Allergy Active [facility] 4[facility]28 [facility] 00:00: Medical 00 Center Social History Social Habit Start Date Stop Date Quantity Comments Source Sexual orientation [facility] History of tobacco Cigarette Smoker [facility] use Medical Center History [facility] Transport Non-Med Medical Center History of Social 2022-06-05 2022-06-[address] [facility] function 00:00:00 00:00:00 Medical Center Cigarettes smoked 2022-06-05 2022-06-[address] [facility] current (pack per 00:00:00 00:00:00 Medical Center day) - Reported Tobacco use and 2022-06-05 2022-06-05 User of smokeless [facility] exposure 00:00:00 00:00:00 tobacco Medical Center History [facility] 2022-06-05 2022-06-[address] [facility] Transport Med 00:00:00 00:00:[address] History [facility] 2022-06-05 2022-06-[address] [facility] Housing Unable to 00:00:00 00:00:00 Medical Center Pay History [facility] 2022-06-05 2022-06-[address] [facility] [facility] Places 00:00:00 00:00:00 Medical Ce nter Lived History [facility] 2022-06-05 2022-06-[address] [facility] Homeless 00:00:00 00:00:00 Medical Center Last Year Sex Assigned At [address] [facility] 00:00:00 00:00:00 Medical Center Smoking Status Start Date Stop Date Source Smokes tobacco daily 2022-06-05 00:00:00 [facility] Medications Ordered Filled Start Stop Current Ordering Indication Dosage Frequency Signature Comments Components Source Medication Medication Date Date Medication? Clinician (SIG) Name Name buPROPion buPROPion 2022-02 No 1{table QD buPROPion HCl ER (XL) HCl ER (XL) 0-18 t_in_th HCl ER 150 MG 150 MG 00:00: e_morni (XL) 150 00 ng} MG buPROPion buPROPion 2022-02 No 1{table QD buPROPion HCl ER (XL) HCl ER (XL) 0-18 t_in_th HCl ER 150 MG 150 MG 00:00: e_morni (XL) 150 00 ng} MG buPROPion buPROPion 2022-02 No 1{table QD buPROPion HCl ER (XL) HCl ER (XL) 0-18 t_in_th HCl ER 150 MG 150 MG 00:00: e_morni (XL) 150 00 ng} MG lisinopriL 2023-0 Yes 10mg QD Take 1 CHI S t (PRINIVIL,Z 5-01 tablet (10 Leandra kes ESTRIL) 10 00:00: mg total) Me dical MG tablet 00 by mouth Center in the morning. lisinopriL 2023-0 Yes 10mg QD Take 1 CHI S t (PRINIVIL,Z 5-01 tablet (10 Leandra kes ESTRIL) 10 00:00: mg total) Me dical MG tablet 00 by mouth Center in the morning. lisinopriL 2023-0 Yes 10mg QD Take 1 CHI S t (PRINIVIL,Z 5-01 tablet (10 Leandra kes ESTRIL) 10 00:00: mg total) Me dical MG tablet 00 by mouth Center in the morning. lisinopriL 2023-0 Yes 10mg QD Take 1 CHI S t (PRINIVIL,Z 5-01 tablet (10 Leandra kes ESTRIL) 10 00:00: mg total) Me dical MG tablet 00 by mouth Center in the morning. triamterene 2023-0 Yes 1{capsu QD Take [address] -hydroCHLOR 4-30 le} capsule by Leandra kes Othiazide 16:51: mouth Medical (DYAZIDE) 40 every Center 37.5-25 mg morning. per capsule simvastatin 2023-0 Yes 80mg QD Take [address] (ZOCOR) 80 4-30 tablet (80 Case es MG tablet 16:51: mg total) Med ical 40 by mouth Center nightly. benzonatate 2023-0 Yes 100mg Take [address] (TESSALON) 4-30 capsule [facility] 100 MG 16:51: (100 mg Medical capsule 40 total) by Center mouth 3 (three) times daily as needed for Cough. HYDROcodone 2023-0 Yes pain 1{tbl} Q.5D Take [address] -acetaminop 4-30 tablet by Case es hen (NORCO 16:51: mouth in Med ical 7.5-325) 40 the Center 7.5-325 mg morning per tablet and 1 tablet before bedtime. Max Daily Amount: 2 tablets. sertraline 2023-0 Yes 50mg Take 1 CHI S t (ZOLOFT) 50 4-30 tablet (50 Leandra kes MG tablet 16:51: mg total) Med ical 40 by mouth. Center triamterene 3-0 Yes 1{capsu QD Take [address] -hydroCHLOR 4-30 le} capsule by Leandra kes Othiazide 16:51: mouth Medical (DYAZIDE) 40 every [...] times daily as needed for Cough. HYDROcodone 2023-0 Yes pain 1{tbl} Q.5D Take [address] -acetaminop 4-30 tablet by Case es hen (NORCO 16:51: mouth in Med ical 7.5-325) 40 the Center 7.5-325 mg morning per tablet and 1 tablet before bedtime. Max Daily Amount: 2 tablets. sertraline 2023-0 Yes 50mg Take 1 CHI S t (ZOLOFT) 50 4-30 tablet (50 Leandra kes MG tablet 16:51: mg total) Med ical 40 by mouth. Center triamterene 2023-0 Yes 1{capsu QD Take [address] -hydroCHLOR 4-30 le} capsule by Leandra kes Othiazide 16:51: mouth Medical (DYAZIDE) 40 every [...] St -hydroCHLOR 4-30 le} capsule by Leandra kes Othiazide 16:51: mouth Medical (DYAZIDE) 40 every [...] Med ical 40 by mouth. Center lisinopriL 3-0 2023- No 5mg QD Take [address] (PRINIVIL,Z 4-30 04-30 tablet (5 Leandra kes ESTRIL) 5 12:25: 00:00 mg total) Me dical MG tablet 26 :00 by mouth Center in the morning. predniSONE 3-0 2023- No 20mg Q.5D Take [address] (DELTASONE) 4-30 04-30 tablet (20 L ukes 20 MG 12:25: 00:00 mg total) Medica l tablet 26 :00 by mouth Center in the morning and 1 tablet (20 mg total) before bedtime. lisinopriL 2023-0 2023- No 5mg QD Take [address] (PRINIVIL,Z 4-30 04-30 tablet (5 Leandra kes ESTRIL) 5 12:25: 00:00 mg total) Me dical MG tablet 26 :00 by mouth Center in the morning. predniSONE 3-0 2023- No 20mg Q.5D Take [address] (DELTASONE) 4-30 04-30 tablet (20 L ukes 20 MG 12:25: 00:00 mg total) Medica l tablet 26 :00 by mouth Center in the morning and 1 tablet (20 mg total) before bedtime. lisinopriL 2023-0 2023- No 5mg QD Take [address] (PRINIVIL,Z 4-30 04-30 tablet (5 Leandra kes ESTRIL) 5 12:25: 00:00 mg total) Me dical MG tablet 26 :00 by mouth Center in the morning. predniSONE 3-0 2023- No 20mg Q.5D Take [address] (DELTASONE) 4-30 04-30 tablet (20 L ukes 20 MG 12:25: 00:00 mg total) Medica l tablet 26 :00 by mouth Center in the morning and 1 tablet (20 mg total) before bedtime. lisinopriL 2023-0 2023- No 5mg QD Take [address] [...] tablet (20 mg total) before bedtime. dextrometho 2022-2022- No 1{tbl} Q.5D Take [address] rphan-guaif 4-30 05-10 tablet by Leandra kes enesin 00:00: 23:59 mouth in Medica l (MuciNEX 00 :00 the Center DM) 30-600 morning mg per 12 and 1 hr tablet tablet before bedtime. Do all this for 10 days. . dextrometho 2022- No 1{tbl} Q.5D Take 1 C HI [...] all this for 10 days. . predniSONE 2022-2022- No Take [address] (DELTASONE) 4-30 05-09 tablets Luke s 10 MG 00:00: 23:59 (40 mg Medical tablet 00 :00 total) by Center mouth daily for 3 days, THEN 2 tablets (20 mg total) daily for 3 days, THEN 1 tablet (10 mg total) daily for 3 days. . predniSONE 2022-0 2022- No Take [address] (DELTASONE) 06-07-09 tablets Luke s 10 MG 00:00: 23:59 (40 mg Medical tablet 00 :00 total) by Center mouth daily for 3 days, THEN 2 tablets (20 mg total) daily for 3 days, THEN 1 tablet (10 mg total) daily for 3 days. . predniSONE 2022-0 2022- No Take [address] (DELTASONE) 06-07- tablets Luke s 10 MG 00:00: 23:59 (40 mg Medical tablet 00 :00 total) by Center mouth daily for 3 days, THEN 2 tablets (20 mg total) daily for 3 days, THEN 1 tablet (10 mg total) daily for 3 days. . predniSONE 2022-2022- No Take [address] (DELTASONE) 06-07- tablets Luke s 10 MG 00:00: 23:59 (40 mg Medical tablet 00 :00 total) by Center mouth daily for 3 days, THEN 2 tablets (20 mg total) daily for 3 days, THEN 1 tablet (10 mg total) daily for 3 days. . levoFLOXaci 2022-2022- No 750mg QD Take [address] n 06-07 tablet [facility] (LEVAQUIN) 00:00: 23:59 (750 mg Med ical 750 MG 00 :00 total) by Center tablet mouth in the morning for 3 days. levoFLOXaci 2022-0 2022- No 750mg QD Take [address] n 06-07 tablet [facility] (LEVAQUIN) 00:00: 23:59 (750 mg Med ical 750 MG 00 :00 total) by Center tablet mouth in the morning for 3 days. levoFLOXaci 2022-0 2022- No 750mg QD Take [address] n 06-07- tablet [facility] (LEVAQUIN) 00:00: 23:59 (750 mg Med ical 750 MG 00 :00 total) by Center tablet mouth in the morning for 3 days. levoFLOXaci 2022-0 2022- No 750mg QD Take [...] 1000mg Take [address] (GLUCOPHAGE 06-05- diabetes tablet L ukes ) 1000 MG [...] [address] (LYRICA) 75 06-05-28 (75 mg [facility] MG capsule 04:44: 00:00 total). Med ical 45 :00 Center pregabalin 2022-0 2022- No 75mg [address] (LYRICA) 75 06-05 04-28 (75 mg [facility] MG capsule 04:44: 00:00 total). Med ical 45 :00 Center pregabalin 2022-0 2022- No 75mg [address] (LYRICA) 75 4- 04-28 (75 mg [facility] MG capsule 04:44: 00:00 total). Med ical 45 :00 Center pregabalin 2022-0 2022- No 75mg [address] (LYRICA) 75 4-28 04-28 (75 mg [facility] MG capsule 04:44: 00:00 total). Med ical 45 :00 Center nicotine 2023-0 Yes 1{patch QD [address] (NICODERM 4-24 } in the [facility]ukes CQ) 14 00:00: morning. Medical [...] MG 1-03 le} 75 MG 00:00: 00 Bactrim DS Bactrim DS 2020- No Kaylee 1 tablet Common 10-25 [place] Spirit 00:00: 00:00 - CHI 00 :00 [facility] Tamsulosin Tamsulosin 2020- No Kaylee 1 capsule Common HCl HCl 09-25 [place] Spirit 00:00: 00:00 - CHI 00 :00 [facility] Flonase Flonase Yes Kaylee 1 spray in Co mmon Chen each Spirit nostril - CHI [facility] Metformin Metformin Yes Kaylee TAKE 1 Co mmon HCl HCl [place] TABLET BY Spirit MOUTH - CHI TWICE A St DAY WITH [facility] Triamterene Triamterene Yes Kaylee 1 tablet Common -HCTZ -HCTZ Chen in the [facility] morning - [facility] Zoloft Zoloft Yes Kaylee 2 tablets Commo n Chen [facility] Trelegy Trelegy Yes Kaylee INHALE 1 Comm on Ellipta Ellipta [place] PUFF BY Sp eliza MOUTH - CHI EVERY DAY [facility] PredniSONE PredniSONE Yes Kaylee 1 tablet Common Chen [facility] Sertraline Sertraline Yes Kaylee TAKE 2 Common HCl HCl Chen TABLETS [facility] ONCE DAILY [facility] Simvastatin Simvastatin Yes Kaylee TAKE 1 Common [place] TABLET BY Spirit MOUTH - CHI EVERY DAY St IN THE [facility] Januvia Januvia Yes Kaylee TAKE 1 Common [place] TABLET [facility] ONCE DAILY [facility] Albuterol Albuterol Yes Kaylee 2 puffs as Common Sulfate HFA Sulfate HFA Chen needed [facility] Pregabalin Pregabalin Yes Kaylee 1 capsule Common [place] 1 to 3 Spirit hours - CHI before St bedtime in [facility] [place] Yes Kaylee 1 tablet Common [place] as needed [facility] Lisinopril Lisinopril Yes Kaylee 1 tablet Common [place] [facility] Simvastatin Simvastatin Yes Kaylee 1 tablet Common Chen in the [facility] evening [facility] Baclofen Baclofen Yes Kaylee not Common Chen defined [facility] metFORMIN metFORMIN No metFORMIN HCl 1000 MG HCl 1000 MG HCl 1000 MG [place] No 1{table QID [place] 10-325 MG 10-325 MG t_as_ne 10-325 MG [...] MCG/ACT MCG/ACT MCG/ACT Baclofen Baclofen No Baclofen [place] No 1{table QID [place] 10-325 MG 10-325 MG t_as_ne 10-325 MG [...] MCG/ACT MCG/ACT MCG/ACT Baclofen Baclofen No Baclofen [place] No 1{table QID [place] 10-325 MG 10-325 MG t_as_ne 10-325 MG eded} Simvastatin Simvastatin No Simvastati 80 MG 80 MG n 80 MG predniSONE predniSONE No 1{table predniSONE 2.5 MG 2.5 MG t} 2.5 MG Simvastatin Simvastatin No 1{table QD Simvastati 80 MG 80 MG t_in_th n 80 MG e_eveni ng} [place] No 1{table QID [place] 10-325 MG 10-325 MG t_as_ne 10-325 MG [...] Pregabalin 150 MG 150 MG 150 MG [place] No 1{table QID [place] 10-325 MG 10-325 MG t_as_ne 10-325 MG [...] HCl 0.4 MG le} HCl 0.4 MG [place] No 1{table QID [place] 10-325 MG 10-325 MG t_as_ne 10-325 MG [...] Nebulizer Nebulizer No Nebulizer Compressor Compressor Compressor [place] No 1{table QID [place] 10-325 MG 10-325 MG t_as_ne 10-325 MG [...] Nebulizer Nebulizer No Nebulizer Compressor Compressor Compressor [place] No 1{table QID [place] 10-325 MG 10-325 MG t_as_ne 10-325 MG [...] 100-62.5-25 100-62.5-25 100-62.5-2 MCG/INH MCG/INH 5 MCG/INH [place] No 1{table QID [place] 10-325 MG 10-325 MG t_as_ne 10-325 MG [...] 75 MG 75 MG le} 75 MG [place] No 1{table QID [place] 10-325 MG 10-325 MG t_as_ne 10-325 MG [...] 75 MG 75 MG le} 75 MG [place] No 1{table QID [place] 10-325 MG 10-325 MG t_as_ne 10-325 MG [...] 75 MG 75 MG le} 75 MG [place] No 1{table QID [place] 10-325 MG 10-325 MG t_as_ne 10-325 MG [...] 75 MG 75 MG le} 75 MG [place] No 1{table QID [place] 10-325 MG 10-325 MG t_as_ne 10-325 MG eded} metFORMIN metFORMIN No metFORMIN HCl 1000 MG HCl 1000 MG HCl 1000 MG metFORMIN metFORMIN No metFORMIN HCl 1000 MG HCl 1000 MG HCl 1000 MG [place] No 1{table QID [place] 10-325 MG 10-325 MG t_as_ne 10-325 MG [...] n 500 MG t} in 500 MG [place] No 1{table QID [place] 10-325 MG 10-325 MG t_as_ne 10-325 MG [...] MG HCl 1000 MG HCl 1000 MG [place] No 1{table QID [place] 10-325 MG 10-325 MG t_as_ne 10-325 MG [...] Base) Base) (90 Base) MCG/ACT MCG/ACT MCG/ACT [place] No 1{table QID [place] 10-325 MG 10-325 MG t_as_ne 10-325 MG [...] 20 MG 20 MG t} 20 MG [place] No 1{table QID [place] 10-325 MG 10-325 MG t_as_ne 10-325 MG [...] Base) Base) (90 Base) MCG/ACT MCG/ACT MCG/ACT [place] No 1{table QID [place] 10-325 MG 10-325 MG t_as_ne 10-325 MG eded} HYDROcodone HYDROcodone No 1{table QID HYDROcodon -Acetaminop -Acetaminop t_as_ne e-Acetamin hen 7.5-325 hen 7.5-325 eded} ophen MG MG 7.5-325 MG Pregabalin Pregabalin No 1{capsu BID Pregabalin 75 MG 75 MG le} 75 MG Benzonatate Benzonatate No 1{capsu Benzonatat 200 MG 200 MG le} e 200 MG Baclofen Baclofen No Baclofen predniSONE predniSONE No 1{table QD predniSONE 20 MG 20 MG t} 20 MG Lisinopril Lisinopril No 1{table QD Lisinopril 5 MG 5 MG t} 5 MG Theophyllin Theophyllin No QD Theophylli e ER 400 MG e ER 400 MG ne ER 400 MG metFORMIN metFORMIN No metFORMIN HCl 1000 MG HCl 1000 MG HCl 1000 MG buPROPion buPROPion No 1{table QD buPROPion HCl ER (XL) HCl ER (XL) t_in_th HCl ER 150 MG 150 MG e_morni (XL) 150 ng} MG Furosemide Furosemide No 1{table QD Furosemide 20 MG 20 MG t} 20 MG metFORMIN metFORMIN No metFORMIN HCl 1000 MG HCl 1000 MG HCl 1000 MG Lisinopril Lisinopril No 1{table QD Lisinopril 10 MG 10 MG t} 10 MG Triamterene Triamterene No 1{table QD Triamteren -HCTZ -HCTZ t_in_th e-HCTZ 37.5-25 MG 37.5-25 MG e_morni 37.5-25 MG ng} Trintellix Trintellix No 1{table QD Trintellix 20 MG 20 MG t} 20 MG Zoloft 50 Zoloft 50 No 1{table QD Zoloft 50 MG MG t} MG Baclofen Baclofen No Baclofen Trelegy Trelegy No Trelegy Ellipta Ellipta Ellipta 100-62.5-25 100-62.5-25 100-62.5-2 MCG/INH MCG/INH 5 MCG/INH Pregabalin Pregabalin No 1{capsu BID Pregabalin 75 MG 75 MG le} 75 MG [place] No 1{table QID [place] 10-325 MG 10-325 MG t_as_ne 10-325 MG eded} Simvastatin Simvastatin No 1{table QD Simvastati 80 MG 80 MG t_in_th n 80 MG e_eveni ng} Albuterol Albuterol No 2{puffs QID Albuterol Sulfate HFA Sulfate HFA _as_nee Sulfate 108 (90 108 (90 ded} HFA 108 Base) Base) (90 Base) MCG/ACT MCG/ACT MCG/ACT [place] No 1{table QID [place] 10-325 MG 10-325 MG t_as_ne 10-325 MG eded} HYDROcodone HYDROcodone No 1{table QID HYDROcodon -Acetaminop -Acetaminop t_as_ne e-Acetamin hen 7.5-325 hen 7.5-325 eded} ophen MG MG 7.5-325 MG Pregabalin Pregabalin No 1{capsu BID Pregabalin 75 MG 75 MG le} 75 MG Benzonatate Benzonatate No 1{capsu Benzonatat 200 MG 200 MG le} e 200 MG Baclofen Baclofen No Baclofen predniSONE predniSONE No 1{table QD predniSONE 20 MG 20 MG t} 20 MG metFORMIN metFORMIN No metFORMIN HCl 1000 MG HCl 1000 MG HCl 1000 MG Theophyllin Theophyllin No QD Theophylli e ER 400 MG e ER 400 MG ne ER 400 MG metFORMIN metFORMIN No metFORMIN HCl 1000 MG HCl 1000 MG HCl 1000 MG buPROPion buPROPion No 1{table QD buPROPion HCl ER (XL) HCl ER (XL) t_in_th HCl ER 150 MG 150 MG e_morni (XL) 150 ng} MG Furosemide Furosemide No 1{table QD Furosemide 20 MG 20 MG t} 20 MG metFORMIN metFORMIN No metFORMIN HCl 1000 MG HCl 1000 MG HCl 1000 MG Lisinopril Lisinopril No 1{table QD Lisinopril 10 MG 10 MG t} 10 MG Triamterene Triamterene No 1{table QD Triamteren -HCTZ -HCTZ t_in_th e-HCTZ 37.5-25 MG 37.5-25 MG e_morni 37.5-25 MG ng} Trintellix Trintellix No 1{table QD Trintellix 20 MG 20 MG t} 20 MG Zoloft 50 Zoloft 50 No 1{table QD Zoloft 50 MG MG t} MG Trelegy Trelegy No Trelegy Ellipta Ellipta Ellipta 100-62.5-25 100-62.5-25 100-62.5-2 MCG/INH MCG/INH 5 MCG/INH Simvastatin Simvastatin No 1{table QD Simvastati 80 MG 80 MG t_in_th n 80 MG e_eveni ng} Albuterol Albuterol No 2{puffs QID Albuterol Sulfate HFA Sulfate HFA _as_nee Sulfate 108 (90 108 (90 ded} HFA 108 Base) Base) (90 Base) MCG/ACT MCG/ACT MCG/ACT [place] No 1{table QID [place] 10-325 MG 10-325 MG t_as_ne 10-325 MG eded} HYDROcodone HYDROcodone No 1{table QID HYDROcodon -Acetaminop -Acetaminop t_as_ne e-Acetamin hen 7.5-325 hen 7.5-325 eded} ophen MG MG 7.5-325 MG Pregabalin Pregabalin No 1{capsu BID Pregabalin 75 MG 75 MG le} 75 MG Benzonatate Benzonatate No 1{capsu Benzonatat 200 MG 200 MG le} e 200 MG Baclofen Baclofen No Baclofen predniSONE predniSONE No 1{table QD predniSONE 20 MG 20 MG t} 20 MG Theophyllin Theophyllin No QD Theophylli e ER 400 MG e ER 400 MG ne ER 400 MG metFORMIN metFORMIN No metFORMIN HCl 1000 MG HCl 1000 MG HCl 1000 MG buPROPion buPROPion No 1{table QD buPROPion HCl ER (XL) HCl ER (XL) t_in_th HCl ER 150 MG 150 MG e_morni (XL) 150 ng} MG Furosemide Furosemide No 1{table QD Furosemide 20 MG 20 MG t} 20 MG metFORMIN metFORMIN No metFORMIN HCl 1000 MG HCl 1000 MG HCl 1000 MG Lisinopril Lisinopril No 1{table QD Lisinopril 10 MG 10 MG t} 10 MG Triamterene Triamterene No 1{table QD Triamteren -HCTZ -HCTZ t_in_ e-HCTZ 37.5-25 MG 37.5-25 MG e_morni 37.5-25 MG ng} Trintellix Trintellix No 1{table QD Trintellix 20 MG 20 MG t} 20 MG Zoloft 50 Zoloft 50 No 1{table QD Zoloft 50 MG MG t} MG Trelegy Trelegy No Trelegy Ellipta Ellipta Ellipta 100-62.5-25 100-62.5-25 100-62.5-2 MCG/INH MCG/INH 5 MCG/INH Immunizations Ordered Filled Immunization Date Status Comments Sourc e Immunization Name Name FLUZONE HIGH DOSE FLUZONE HIGH DOSE 2021-12-03 [facility] OVER [facility] 10:08:00 - [facility] FLUZONE HIGH DOSE FLUZONE HIGH DOSE 2021-12-03 Completed [facility] OVER 65 OVER 65 10:08:00 - [facility] FLUZONE HIGH DOSE FLUZONE HIGH DOSE 2021-12-03 Completed [facility] OVER 65 OVER 65 10:08:00 - [facility] FLUZONE HIGH DOSE FLUZONE HIGH DOSE 2021-12-03 Completed [facility] OVER 65 OVER 65 10:08:00 - [facility] FLUZONE HIGH DOSE FLUZONE HIGH DOSE 2020-11-14 Completed [facility] OVER 65 OVER 65 10:39:00 - [facility] FLUZONE HIGH DOSE FLUZONE HIGH DOSE 2020-11-14 Completed [facility] OVER 65 OVER 65 10:39:00 - [facility] FLUZONE HIGH DOSE FLUZONE HIGH DOSE 2020-11-14 Completed [facility] OVER 65 OVER 65 10:39:00 - [facility] FLUZONE HIGH DOSE FLUZONE HIGH DOSE 2020-11-14 Completed [facility] OVER 65 OVER 65 10:39:00 - [facility] FLUZONE HIGH DOSE FLUZONE HIGH DOSE 2020-11-14 Completed [facility] OVER 65 OVER 65 10:39:00 - [facility] FLUZONE HIGH DOSE FLUZONE HIGH DOSE 2020-11-14 Completed [facility] OVER 65 OVER 65 10:39:00 - [facility] [facility] FLUZONE HIGH DOSE FLUZONE HIGH DOSE 2020-11-14 Completed [facility] OVER 65 OVER 65 10:39:00 - [facility] FLUZONE HIGH DOSE FLUZONE HIGH DOSE 2020-11-14 Completed [facility] OVER 65 OVER 65 10:39:00 - [facility] FLUZONE HIGH DOSE FLUZONE HIGH DOSE 2020-11-14 Completed [facility] OVER 65 OVER 65 10:39:00 - [facility] FLUZONE HIGH DOSE FLUZONE HIGH DOSE 2020-11-14 Completed [facility] OVER 65 OVER 65 10:39:00 - [facility] FLUZONE HIGH DOSE FLUZONE HIGH DOSE 2020-11-14 Completed [facility] OVER 65 OVER 65 10:39:00 - [facility] FLUZONE HIGH DOSE FLUZONE HIGH DOSE 2020-11-14 Completed [facility] OVER 65 OVER 65 10:39:00 - [facility] FLUZONE HIGH DOSE FLUZONE HIGH DOSE 2020-11-14 Completed [facility] OVER 65 OVER 65 10:39:00 - [facility] FLUZONE HIGH DOSE FLUZONE HIGH DOSE 2020-11-14 Completed [facility] OVER 65 OVER 65 10:39:00 - [facility] FLUZONE HIGH DOSE FLUZONE HIGH DOSE 2020-11-14 Completed [facility] OVER 65 OVER 65 10:39:00 - [facility] FLUZONE HIGH DOSE FLUZONE HIGH DOSE 2020-11-14 Completed [facility] OVER 65 OVER 65 10:39:00 - [facility] FLUZONE HIGH DOSE FLUZONE HIGH DOSE 2020-11-14 Completed [facility] OVER 65 OVER 65 10:39:00 - [facility] FLUZONE HIGH DOSE FLUZONE HIGH DOSE 2020-11-14 Completed [facility] OVER 65 OVER 65 10:39:00 - [facility] FLUZONE HIGH DOSE FLUZONE HIGH DOSE 2020-11-14 Completed [facility] OVER 65 OVER 65 10:39:00 [facility] Moderna COVID-19 Moderna COVID-19 2020-05-09 [facility] 13:48:00 - [facility] Moderna COVID-19 Moderna COVID-19 2020-05-09 Completed [facility] Vacc[facility] 13:48:00 [facility] Moderna COVID-19 Moderna COVID-19 2020-05-09 Completed [facility] Vaccine 13:48:00 [facility] Moderna COVID-19 Moderna COVID-19 2020-05-09 Completed [facility] Vaccine 13:48:00 - [facility] Moderna COVID-19 Moderna COVID-19 2020-05-09 Completed [facility] Vaccine 13:48:00 [facility] Moderna COVID-19 Moderna COVID-19 2020-05-09 Completed [facility] Vaccine 13:48:00 - [facility] Moderna COVID-19 Moderna COVID-19 2020-05-09 Completed [facility] Vacc[facility] 13:48:00 - [facility] Moderna COVID-19 Moderna COVID-19 2020-05-09 Completed [facility] 13:48:00 - [facility] Moderna COVID-19 Moderna COVID-19 2020-05-09 Completed [facility] Vaccine 13:48:00 - [facility] Moderna COVID-19 Moderna COVID-19 2020-05-09 Completed [facility] Vaccine 13:48:00 - [facility] Moderna COVID-19 Moderna COVID-19 2020-05-09 Completed [facility] Vaccine 13:48:00 - [facility] Moderna COVID-19 Moderna COVID-19 2020-05-09 Completed [facility] Vaccine 13:48:00 - [facility] Moderna COVID-19 Moderna COVID-19 2020-05-09 Completed [facility] Vaccine 13:48:00 - [facility] Moderna COVID-19 Moderna COVID-19 2020-05-09 Completed [facility] 13:48:00 - [facility] Moderna COVID-19 Moderna COVID-19 2020-05-09 Completed [facility] 13:48:00 - [facility] Moderna COVID-19 Moderna COVID-19 2020-05-09 Completed [facility] Vaccine 13:48:00 - [facility] Moderna COVID-19 Moderna COVID-19 2020-05-09 Completed [facility] 13:48:00 - [facility] Moderna COVID-19 Moderna COVID-19 2020-05-09 Completed [facility] 13:48:00 - [facility] Moderna COVID-19 Moderna COVID-19 2020-04-08 Completed [facility] 13:48:00 - [facility] Moderna COVID-19 Moderna COVID-19 2020-04-08 Completed [facility] Vaccine 13:48:00 - [facility] Moderna COVID-19 Moderna COVID-19 2020-04-08 Completed [facility] Vaccine 13:48:00 - [facility] Moderna COVID-19 Moderna COVID-19 2020-04-08 Completed [facility] Vaccine 13:48:00 - [facility] Moderna COVID-19 Moderna COVID-19 2020-04-08 Completed [facility] Vaccine 13:48:00 - [facility] Moderna COVID-19 Moderna COVID-19 2020-04-08 Completed [facility] Vaccine 13:48:00 - [facility] Moderna COVID-19 Moderna COVID-19 2020-04-08 Completed [facility] Vacc[facility] 13:48:00 - [facility] Moderna COVID-19 Moderna COVID-19 2020-04-08 Completed [facility] Vaccine 13:48:00 - [facility] Moderna COVID-19 Moderna COVID-19 2020-04-08 Completed [facility] Vaccine 13:48:00 - [facility] Moderna COVID-19 Moderna COVID-19 2020-04-08 Completed [facility] Vacc[facility] 13:48:00 - [facility] Moderna COVID-19 Moderna COVID-19 2020-04-08 Completed [facility] Vaccine 13:48:00 - [facility] Moderna COVID-19 Moderna COVID-19 2020-04-08 Completed [facility] Vacc[facility] 13:48:00 - [facility] Moderna COVID-19 Moderna COVID-19 2020-04-08 Completed [facility] Vacc[facility] 13:48:00 - [facility] Moderna COVID-19 Moderna COVID-19 2020-04-08 Completed [facility] Vacc[facility] 13:48:00 - [facility] Moderna COVID-19 Moderna COVID-19 2020-04-08 Completed [facility] 13:48:00 - [facility] Moderna COVID-19 Moderna COVID-19 2020-04-08 Completed [facility] Vaccine 13:48:00 - [facility] Moderna COVID-19 Moderna COVID-19 2020-04-08 Completed [facility] 13:48:00 - [facility] Moderna COVID-19 Moderna COVID-19 2020-04-08 Completed [facility] 13:48:00 - [facility] FluAD FluAD 2020-01-17 Completed [facility] 11:24:00 - [facility] FluAD FluAD 2020-01-17 Completed [facility] 11:24:00 - [facility] FluAD FluAD 2020-01-17 Completed [facility] 11:24:00 - [facility] FluAD FluAD 2020-01-17 Completed [facility] 11:24:00 - [facility] FluAD FluAD 2020-01-17 Completed [facility] 11:24:00 - [facility] FluAD FluAD 2020-01-17 Completed [facility] 11:24:00 - [facility] FluAD FluAD 2020-01-17 Completed [facility] 11:24:00 - [facility] FluAD FluAD 2020-01-17 Completed [facility] 11:24:00 - [facility] FluAD FluAD 2020-01-17 Completed [facility] 11:24:00 - [facility] FluAD FluAD 2020-01-17 Completed [facility] 11:24:00 - [facility] FluAD FluAD 2020-01-17 Completed [facility] 11:24:00 - [facility] FluAD FluAD 2020-01-17 Completed [facility] 11:24:00 - [facility] FluAD FluAD 2020-01-17 Completed [facility] 11:24:00 - [facility] FluAD FluAD 2020-01-17 Completed [facility] 11:24:00 - [facility] FluAD FluAD 2020-01-17 Completed [facility] 11:24:00 - [facility] FluAD FluAD 2020-01-17 Completed [facility] 11:24:00 - [facility] FluAD FluAD 2020-01-17 Completed [facility] 11:24:00 - [facility] FluAD FluAD 2020-01-17 Completed [facility] 11:24:00 - [facility] FluAD FluAD 2020-01-17 Completed [facility] 11:24:00 - [facility] Pneumovax (PPSV23) Pneumovax (PPSV23) 2017-11-08 Completed [facility] 13:48:00 - [facility] Pneumovax (PPSV23) Pneumovax (PPSV23) 2017-11-08 Completed [facility] 13:48:00 [facility] Pneumovax (PPSV23) Pneumovax (PPSV23) 2017-11-08 Completed [facility] 13:48:00 [facility] Pneumovax (PPSV23) Pneumovax (PPSV23) 2017-11-08 Completed [facility] 13:48:00 - [facility] Pneumovax (PPSV23) Pneumovax (PPSV23) 2017-11-08 Completed [facility] 13:48:00 - [facility] Pneumovax (PPSV23) Pneumovax (PPSV23) 2017-11-08 Completed [facility] 13:48:00 - [facility] Pneumovax (PPSV23) Pneumovax (PPSV23) 2017-11-08 Completed [facility] 13:48:00 - [facility] Pneumovax (PPSV23) Pneumovax (PPSV23) 2017-11-08 Completed [facility] 13:48:00 - [facility] Pneumovax (PPSV23) Pneumovax (PPSV23) 2017-11-08 Completed [facility] 13:48:00 [facility] Pneumovax (PPSV23) Pneumovax (PPSV23) 2017-11-08 Completed [facility] 13:48:00 [facility] Pneumovax (PPSV23) Pneumovax (PPSV23) 2017-11-08 Completed [facility] 13:48:00 [facility] Pneumovax (PPSV23) Pneumovax (PPSV23) 2017-11-08 Completed [facility] 13:48:00 - [facility] Pneumovax (PPSV23) Pneumovax (PPSV23) 2017-11-08 Completed [facility] 13:48:00 [facility] Pneumovax (PPSV23) Pneumovax (PPSV23) 2017-11-08 Completed [facility] 13:48:00 [facility] Pneumovax (PPSV23) Pneumovax (PPSV23) 2017-11-08 Completed [facility] 13:48:00 [facility] Pneumovax (PPSV23) Pneumovax (PPSV23) 2017-11-08 Completed [facility] 13:48:00 [facility] Pneumovax (PPSV23) Pneumovax (PPSV23) 2017-11-08 Completed [facility] 13:48:00 [facility] Pneumovax (PPSV23) Pneumovax (PPSV23) 2017-11-08 Completed [facility] 13:48:00 [facility] Moderna COVID-19 Moderna COVID-19 Unknown Completed [facility] Vaccine Vaccine [facility] Moderna COVID-19 Moderna COVID-19 Unknown Completed [facility] Vaccine Vaccine [facility] FluAD FluAD Unknown Completed [facility] Pneumovax (PPSV23) Pneumovax (PPSV23) Unknown Completed [facility] FLUZONE HIGH DOSE FLUZONE HIGH DOSE Unknown Completed [facility] OVER 65 OVER 65 [facility] FLUZONE HIGH DOSE FLUZONE HIGH DOSE Unknown Completed [facility] OVER 65 OVER 65 [facility] Moderna COVID-19 Moderna COVID-19 Unknown Completed [facility] Vaccine Vaccine [facility] Moderna COVID-19 Moderna COVID-19 Unknown Completed [facility] Vaccine Vaccine [facility] FluAD FluAD Unknown Completed [facility] Pneumovax (PPSV23) Pneumovax (PPSV23) Unknown Completed [facility] FLUZONE HIGH DOSE FLUZONE HIGH DOSE Unknown Completed [facility] OVER 65 OVER 65 [facility] FLUZONE HIGH DOSE FLUZONE HIGH DOSE Unknown Completed [facility] OVER 65 OVER 65 [facility] Moderna COVID-19 Moderna COVID-19 Unknown Completed [facility] Vaccine Vaccine [facility] Moderna COVID-19 Moderna COVID-19 Unknown Completed [facility] Vaccine Vaccine [facility] FluAD FluAD Unknown Completed [facility] Pneumovax (PPSV23) Pneumovax (PPSV23) Unknown Completed [facility] FLUZONE HIGH DOSE FLUZONE HIGH DOSE Unknown Completed [facility] OVER 65 OVER 65 [facility] FLUZONE HIGH DOSE FLUZONE HIGH DOSE Unknown Completed [facility] OVER 65 OVER 65 [facility] Vital Signs Vital Name Observation Time Observation Value Comments Source height 2022-06-01 09:20:00 66.5 [in_i] [facility] weight 2022-06-01 09:20:00 158 [lb_av] [facility] temperature 2022-06-01 09:20:00 96.9 [degF] [facility] bmi 2022-06-01 09:20:00 25.12 kg/m2 [facility] oximetry 2022-06-01 09:20:00 98 % [facility] respiratory rate 2022-06-01 09:20:00 16 /min Comm on [facility] blood pressure 2022-06-01 09:20:00 130 mm[Hg] [facility] - systolic [facility] blood pressure 2022-06-01 09:20:00 60 mm[Hg] [facility] - diastolic [facility] height 2022-03-05 10:10:00 66.5 [in_i] [facility] weight 2022-03-05 10:10:00 158 [lb_av] [facility] temperature 2022-03-05 10:10:00 97.6 [degF] [facility] bmi 2022-03-05 10:10:00 25.12 kg/m2 [facility] oximetry 2022-03-05 10:10:00 95 % [facility] respiratory rate 2022-03-05 10:10:00 16 /min Comm on [facility] blood pressure 2022-03-05 10:10:00 118 mm[Hg] [facility] - systolic [facility] blood pressure 2022-03-05 10:10:00 70 mm[Hg] [facility] - diastolic [facility] height 2021-12-03 09:50:00 66.5 [in_i] [facility] weight 2021-12-03 09:50:00 156.0 [lb_av] [facility] temperature 2021-12-03 09:50:00 97.2 [degF] [facility] bmi 2021-12-03 09:50:00 24.8 kg/m2 [facility] oximetry 2021-12-03 09:50:00 98 % [facility] respiratory rate 2021-12-03 09:50:00 18 /min Comm on [facility] blood pressure 2021-12-03 09:50:00 129 mm[Hg] [facility] - systolic [facility] blood pressure 2021-12-03 09:50:00 59 mm[Hg] [facility] - diastolic [facility] height 2021-11-04 13:00:00 66.5 [in_i] [facility] weight 2021-11-04 13:00:00 156.3 [lb_av] [facility] temperature 2021-11-04 13:00:00 97.9 [degF] [facility] bmi 2021-11-04 13:00:00 24.85 kg/m2 [facility] oximetry 2021-11-04 13:00:00 96 % [facility] respiratory rate 2021-11-04 13:00:00 17 /min Comm on [facility] blood pressure 2021-11-04 13:00:00 132 mm[Hg] [facility] - systolic [facility] blood pressure 2021-11-04 13:00:00 67 mm[Hg] [facility] - diastolic [facility] height 2021-09-04 13:30:00 66.5 [in_i] [facility] weight 2021-09-04 13:30:00 156 [facility]_av[facility] temperature 2021-09-04 13:30:00 97.6 [degF] [facility] bmi 2021-09-04 13:30:00 24.8 kg/m2 [facility] oximetry 2021-09-04 13:30:00 96 % [facility] respiratory rate 2021-09-04 13:30:00 16 /min Comm on [facility] blood pressure 2021-09-04 13:30:00 135 mm[Hg] [facility] - systolic [facility] blood pressure 2021-09-04 13:30:00 63 mm[Hg] [facility] - diastolic [facility] height 2021-09-04 14:00:00 66.5 [in_i] [facility] weight 2021-09-04 14:00:00 156 [lb_av] [facility] temperature 2021-09-04 14:00:00 97.6 [degF] [facility] bmi 2021-09-04 14:00:00 24.8 kg/m2 [facility] oximetry 2021-09-04 14:00:00 96 % [facility] respiratory rate 2021-09-04 14:00:00 16 /min Comm on [facility] blood pressure 2021-09-04 14:00:00 135 mm[Hg] [facility] - systolic [facility] blood pressure 2021-09-04 14:00:00 63 mm[Hg] [facility] - diastolic [facility] height 2021-05-27 11:40:00 68 [in_i] [facility] weight 2021-05-27 11:40:00 172 [lb_av] [facility] bmi 2021-05-27 11:40:00 26.15 kg/m2 [facility] height 2021-02-10 09:30:00 68 [in_i] [facility] weight 2021-02-10 09:30:00 172.7 [lb_av] [facility] temperature 2021-02-10 09:30:00 97.3 [degF] [facility] bmi 2021-02-10 09:30:00 26.26 kg/m2 [facility] oximetry 2021-02-10 09:30:00 99 % [facility] respiratory rate 2021-02-10 09:30:00 17 /min Comm on [facility] blood pressure 2021-02-10 09:30:00 138 mm[Hg] [facility] - systolic [facility] blood pressure 2021-02-10 09:30:00 72 mm[Hg] [facility] - diastolic [facility] weight 2021 09:00:00 169.3 [lb_av] [facility] temperature 2021 09:00:00 97.9 [degF] [facility] bmi 2021 09:00:00 25.74 kg/m2 [facility] oximetry 2021 09:00:00 96 % [facility] 09[facility]00 16 /min Comm on [facility] blood pressure 2021 09:00:00 132 mm[Hg] [facility] - systolic [facility] blood pressure 2021 09:00:00 65 mm[Hg] [facility] - diastolic [facility] height 2021 09:00:00 68 [in_i] [facility] height 2020-11-14 09:00:00 68 [in_i] [facility] weight 2020-11-14 09:00:00 168.6 [lb_av] [facility] temperature 2020-11-14 09:00:00 96.7 [degF] [facility] bmi 2020-11-14 09:00:00 25.63 kg/m2 [facility] oximetry 2020-11-14 09:00:00 91 % [facility] blood pressure 2020-11-14 09:00:00 120 mm[Hg] [facility] - systolic [facility] blood pressure 2020-11-14 09:00:00 60 mm[Hg] [facility] - diastolic [facility] height 2020-11-14 09:00:00 68 [in_i] [facility] weight 2020-11-14 09:00:00 168.6 [lb_av] [facility] temperature 2020-11-14 09:00:00 96.7 [degF] [facility] bmi 2020-11-14 09:00:00 25.63 [facility]m2 [facility] 2020-11-14 09:00:00 91 % [facility] respiratory rate 2020-11-14 09:00:00 16 /min Comm on [facility] blood pressure 2020-11-14 09:00:00 120 mm[Hg] [facility] - systolic [facility] blood pressure 2020-11-14 09:00:00 60 mm[Hg] [facility] - diastolic [facility] Heart rate 2022-06-07 13:55:00 78 /min [facility] Respiratory rate 2022-06-07 13:55:00 20 /min [facility] Oxygen saturation in 2022-06-07 13:55:00 98 /min [facility] Arterial blood by Medical Ce [facility]ter Pulse oximetry Systolic blood 2022-06-07 12:00:00 163 mm[Hg] [facility] Diastolic blood 2022-06-07 12:00:00 70 mm[Hg] [facility] Body temperature 2022-06-07 12:00:00 36.5 Lala [facility] Procedures Procedure Date / Time Performed Performing Clinician Sour e POCT-GLUCOSE METER 2022-06-07 11:07:00 Curtis [facility] POCT-GLUCOSE METER 2022-06-07 06:18:00 Curtis [facility] CBC W/PLT COUNT & AUTO 2022-06-07 05:29:[address] [facility] BASIC METABOLIC PANEL 2022-06-07 05:29:00 Curtis [facility] CBC W/PLT COUNT & AUTO 2022-06-07 05:29:[address] [facility] XR CHEST 1 VIEW PORTABLE 2022-06-07 04:35:00 Curtis [facility] / BEDSIDE [facility] POCT-GLUCOSE METER 2022-06-06 22:01:00 Curtis [facility] POCT-GLUCOSE METER 2022-06-06 15:04:00 Curtis [facility] PROCALCITONIN 2022-06-06 12:37:00 Curtis [facility] POCT-GLUCOSE METER 2022-06-06 11:55:00 Curtis [facility] POCT-GLUCOSE METER 2022-06-06 06:31:00 Curtis [facility] C-REACTIVE PROTEIN 2022-06-06 05:07:00 Nikolas Reeves [facility] CBC W/PLT COUNT & AUTO 2022-06-06 05:07:00 Curtis [facility] DIFFERENTIAL [facility] CBC W/PLT COUNT & AUTO 2022-06-06 05:07:00 Curtis [facility] DIFFERENTIAL [facility] BASIC METABOLIC PANEL 2022-06-06 05:07:00 Curtis [facility] D-DIMER 2022-06-06 05:07:00 Yue [facility] SODIUM, RANDOM URINE 2022-06-05 21:33:00 [facility] 2022-06-05 20:11:00 Yue[facility] D-DIMER 2022-06-05 17:25:00 Leobardo Johnson [facility] SODIUM 2022-06-05 17:25:[address] [facility] POCT-GLUCOSE METER 2022-06-05 16:17:00 Yueca [facility] ECG 12-LEAD 2022-06-05 08:33:21 Unknown, 7 [facility] ECG 12-LEAD 2022-06-05 08:33:21 Unknown, 7 [facility] ECG 12-LEAD 2022-06-05 08:32:58 Unknown, Hl7 [facility] ECG 12-LEAD 2022-06-05 08:32:58 Unknown, Hl7 [facility] BLOOD CULTURE 2022-06-05 08:13:00 Stephanie [facility] BLOOD CULTURE 2022-06-05 08:12:00 Stephanie [facility] C-REACTIVE PROTEIN 2022-06-05 08:08:00 Stephanie Laura [facility] POCT-GLUCOSE METER 2022-06-05 06:50:00 [facility], ARTERIAL 2022-06-05 04:57:00 Stephanie [facility] Robin [facility] STREP PNEUMONIAE ANTIGEN 2022-06-05 04:24:00 Laura Shah kennedi [facility] OSMOLALITY, URINE 2022-06-05 04:24:00 Stephanie [facility] SODIUM, RANDOM URINE 2022-06-05 04:24:00 Prudence Shahenna Bobalondra Rossi [facility] CBC W/PLT COUNT & AUTO 2022-06-05 04:21:00 Stephanie [facility] COMPREHENSIVE METABOLIC 2022-06-05 04:21:00 [facility] HEMOGLOBIN A1C 2022-06-05 04:21:00 Geronimo [facility] PROTHROMBIN TIME/INR 2022-06-05 04:21:00 Laura Shahvinita C [facility] MAGNESIUM 2022-06-05 04:21:00 Stephanie [facility] PHOSPHORUS 2022-06-05 04:21:00 [facility] CBC W/PLT COUNT & AUTO 2022-06-05 04:21:[address] [facility] LIPID PANEL 2022-06-05 04:21:[address] [facility] TROPONIN I 2022-06-05 04:21:00 [facility] EKG-SCANNED 2022-06-05 00:00:00 Provider, Nate [facility] Plan of Care Planned Activity Planned Date Details Comments Source Future Scheduled 2023-06-02 Tobacco Cessation [facility] Test 00:[facility] Test 00:00:00 measurement (procedure) [facility] [code = 85307168] Future Scheduled 2022-12-[address] [facility] Test 00:00:00 measurement (procedure) [facility] [code = [id number]] Future Scheduled 2022-12-[address] [facility] Test 00:00:00 measurement (procedure) [facility] [code = [id number]] Future Scheduled 2022-12-[address] [facility] Test 00:00:00 measurement (procedure) [facility] [code = [id number]] Future Scheduled 2022-10-09 Influenza Vaccine (#1) [facility] Test 00:00:00 [code = Influenza [facility] Vaccine (#1)] Future Scheduled 2022-10-09 Influenza Vaccine (#1) [facility] Test 00:00:00 [code = Influenza Medical Ce [facility]ter Vaccine (#1)] Future Scheduled 2022-02-08 FALLS RISK SCREENING [facility] Test 00:00:00 [code = FALLS RISK Medical C enter SCREENING] Future Scheduled 2022-02-08 Medicare IPPE (WELCOME [facility] Test 00:00:00 TO MEDICARE) [code = Medical Center Medicare IPPE (WELCOME TO MEDICARE)] Future Scheduled 2022-02-[address] [facility] Test 00:00:00 (12+) [code = Medical Center DEPRESSION SCREENING (12+)] Future Scheduled 2022-02-[address] [...] - [facility] Test 00:00:00 Moderna series) [code = [facility] COVID-19 VACCINE (3 - Moderna series)] Future Scheduled 2020-07-04 COVID-19 VACCINE [...] - Booster for Moderna series)] Future Scheduled 2018-11-08 PNEUMOCOCCAL 65+ YRS ([address] [facility] 00:00:00 - PCV) [code = Medical Cent[facility] r PNEUMOCOCCAL 65+ YRS (2 - PCV)] Future Scheduled 2013-01-[address] [facility] 00:00:00 aneurysm screening Medical C enter (procedure) [code = 146410049] Future Scheduled 2013-01-[address] [facility] 00:00:00 aneurysm screening Medical C enter (procedure) [code = 899568615] Future Scheduled 2013-01-[address] [facility] 00:00:00 aneurysm screening Medical C enter (procedure) [code = 108037103] Future Scheduled 2013-01-[address] [facility] 00:00:00 aneurysm screening Medical C enter (procedure) [code = 002358379] Future Scheduled 1998-01-26 SHINGLES VACCINES ([address] [facility] 00:00:00 2[facility] Future Scheduled 1998-01-26 SHINGLES VACCINES ([address] [facility] 00:00:00 2) [code = [facility] VACCINES (1 of 2)] Future Scheduled 1998-01-26 SHINGLES VACCINES ([address] [facility] 00:00:00 2) [code = SHINGLES [facility] VACCINES (1 of 2)] Future Scheduled 1998-01-26 SHINGLES VACCINES ([address] [facility] 00:00:00 2) [code = SHINGLES [facility] VACCINES (1 of 2)] Future Scheduled [...] 00:00:00 examination Medical Center (regime/therapy) [code = 879858320] Future Scheduled 1958-01-26 Urine screening for [facility] 00:00:00 protein (procedure) Medical Center [code = 510953290] Future Scheduled 1958-01-26 DIABETIC EYE EXAM [code [facility] 00:00:00 = DIABETIC EYE EXAM] Medical Center Future Scheduled 1958-01-[address] [facility] examination Medical Center (regime/therapy) [code = 937751276] Future Scheduled 1958-01-26 Urine screening for [facility] 00:00:00 protein (procedure) Medical Center [code = 321391954] Future Scheduled 1958-01-26 DIABETIC EYE EXAM [code [facility] 00:00:00 = DIABETIC EYE EXAM] Medical Center Future Scheduled 1958-01-[address] [facility] 00:[facility]:00 examination Medical Center (regime/therapy) [code = 378207628] Future Scheduled 1958-01-26 Urine screening for [facility] 00:00:00 protein (procedure) Medical Center [code = 802745627] Future Scheduled 1958-01-26 DIABETIC EYE EXAM [code [facility] 00:00:00 = DIABETIC EYE EXAM] Medical Center Future Scheduled 1958-01-[address] [facility] 00:[facility]:00 examination Medical Center (regime/therapy) [code = 265084700] Future Scheduled 1958-01-26 Urine screening for [facility] 00:00:00 protein (procedure) Medical Center [code = 979454893] Future Scheduled 1948 CT Colonography (combo) [facility] 00:00:00 [code = CT Colonography [facility] (combo)] Future Scheduled 1948 Screening for malignant [facility] 00:00:00 neoplasm of colon Medical Ce nter (procedure) [code = 043864663] Future Scheduled 1948 Screening for malignant [facility] 00:00:00 neoplasm of colon Medical Ce nter (procedure) [code = 533173508] Future Scheduled 1948 Screening for malignant [facility] 00:00:00 neoplasm of colon Medical Ce nter (procedure) [code = 313943592] Future Scheduled 1948 Screening for malignant [facility] 00:00:00 neoplasm of colon Medical Ce nter (procedure) [code = 905311264] Future Scheduled 1948 Sigmoidoscopy [code [facility]] [facility] Future Scheduled 1948 CT Colonography (combo) [facility] 00:00:00 [code = CT Colonography [facility] (combo)] Future Scheduled 1948 Screening for malignant [facility] 00:00:00 neoplasm of colon Medical Ce nter (procedure) [code = 001915649] Future Scheduled 1948 Screening for malignant [facility] 00:00:00 neoplasm of colon Medical Ce nter (procedure) [code = 331266919] Future Scheduled 1948 Screening for malignant [facility] 00:00:00 neoplasm of colon Medical Ce nter (procedure) [code = 051038274] Future Scheduled 1948 Screening for malignant [facility] 00:00:00 neoplasm of colon Medical Ce nter (procedure) [code = 484445712] Future Scheduled 1948 Sigmoidoscopy [code = [facility] S[facility]oidoscopy] Medical Cente r Future Scheduled 1948 CT Colonography (combo) [facility] 00:00:00 [code = CT [facility] ([facility] Future Scheduled 1948 Screening for malignant [facility] 00:00:00 neoplasm of colon Medical Ce nter (procedure) [code = 122012876] Future Scheduled 1948 Screening for malignant [facility] 00:00:00 neoplasm of colon Medical Ce nter (procedure) [code = 466917576] Future Scheduled 1948 Screening for malignant [facility] 00:00:00 neoplasm of colon Medical Ce nter (procedure) [code = 263740818] Future Scheduled 1948 Screening for malignant [facility] 00:00:00 neoplasm of colon Medical Ce nter (procedure) [code = 200075993] Future Scheduled 1948 Sigmoidoscopy [code = [facility] S[facility]oidoscopy] Medical Cente r Future Scheduled 1948 CT Colonography (combo) [facility] 00:00:00 [code = CT Colonography [facility] (combo)] Future Scheduled 1948 Screening for malignant [facility] 00:00:00 neoplasm of colon Medical Ce nter (procedure) [code = 895863496] Future Scheduled 1948 Screening for malignant [facility] 00:00:00 neoplasm of colon Medical Ce nter (procedure) [code = 133866020] Future Scheduled 1948 Screening for malignant [facility] 00:00:00 neoplasm of colon Medical Ce nter (procedure) [code = 514423963] Future Scheduled 1948 Screening for malignant [facility] 00:00:00 neoplasm of colon Medical Ce nter (procedure) [code = 712831338] Future Scheduled 1948 Sigmoidoscopy [code = [facility] Sigmoidoscopy] Medical Cente r Encounters Start End Encounter Admission Attending Care Care Encounter Source Date/Time Date/Time Type Type Clinicians Facility Department ID 2022-08-27 Outpatient Maldonado, STLMLC STLMLC [id number] Common 07:42:00 Uri [id number] [facility] 2022-03-05 Outpatient Maldonado, STLMLC STLMLC [id number] Common 08:03:00 Uri [id number] [facility] 2021-12-01 Outpatient Maldonado, STLMLC STLMLC [id number] Common 10:32:00 Uri [id number] [facility] 2021-03-05 Outpatient Maldonado, STLMLC STLMLC [id number] Common 12:35:45 Uri [id number] [facility] 2021-03-05 Outpatient Maldonado, STLMLC STLMLC [id number] Common 12:12:17 Uri [id number] [facility] 2021-03-05 Outpatient Maldonado, STLMLC STLMLC [id number] Common 11:46:55 Uri [id number] [facility] 2021-03-05 Outpatient Maldonado, STLMLC STLMLC [id number] Common 11:25:09 Uri [id number] [facility] 2021-03-05 Outpatient Maldonado, STLMLC STLMLC [id number] Common 11:16:20 Uri [id number] [facility] 2021-03-05 Outpatient Maldonado, STLMLC STLMLC [id number] Common 11:07:31 Uri [id number] [facility] 2021-03-05 Outpatient Maldonado, STLMLC STLMLC [id number] Common 11:02:46 Uri [id number] [facility] 2022-08-18 2022-08-18 Outpatient ELIZABETH, LINDSEY FREEMAN [id number] [place] 00:00:00 00:00:00 LEOBARDO ary gurrola 2022-07-01 2022-07-01 (TEL) STLMLC STLMLC [id number] Co mmon 00:00:00 00:00:00 [facility] 2022-06-12 2022-06-12 (TEL) STLMLC STLMLC [id number] Co mmon 00:00:00 00:00:00 [facility] 2022-06-05 2022-06-07 [facility] [id number] 01:05:00 16:51:00 Encounter Nikolas Reeves [facility] 2022-06-05 2022-06-07 Hospital ER Laura Shahu [facility] [id number] 01:05:00 16:51:00 Encounter Nikolas Reeves [facility] 2022-06-05 2022-06-07 Inpatient [facility] [id number] [facility] 01:05:00 16:51:00 [facility] 2022-06-05 2022-06-05 Orders STC [id number] [facility]00 00:00:[address] [facility] 2022-06-05 2022-06-05 Orders STC [id number] 00:[facility]00 00:00:[facility] 2022-06-01 2022-06-01 OFFICE STLMLC STLMLC [id number] Co mmon 00:00:00 00:00:00 VISIT [facility] ESTAB PT - [facility] LEVEL 4 [facility] 2022-03-05 2022-03-05 OFFICE STLMLC STLMLC [id number] Co mmon 00:00:00 00:00:00 VISIT [facility] ESTAB PT - [facility] LEVEL 4 [facility] 2022-02-20 2022-02-20 (TEL) STLMLC STLMLC [id number] Co mmon 00:00:00 00:00:00 [facility] 2022-01-22 2022-01-22 (TEL) STLMLC STLMLC [id number] Co mmon 00:00:00 00:00:00 [facility] 2021-12-03 2021-12-03 OFFICE STLMLC STLMLC [id number] Co mmon 00:00:00 00:00:00 VISIT [facility] ESTAB PT - [facility] LEVEL 4 [facility] 2021-11-04 2021-11-04 OFFICE STLMLC STLMLC [id number] Co mmon 00:00:00 00:00:00 VISIT [facility] ESTAB PT - [facility] LEVEL 4 [facility] 2021-10-30 2021-10-30 (TEL) STLMLC STLMLC [id number] Co mmon 00:00:00 00:00:00 [facility] 2021-09-04 2021-09-04 (TEL) STLMLC STLMLC [id number] Co mmon 00:00:00 00:00:00 Spirit [facility] 2021-09-04 2021-09-04 OFFICE STLMLC STLMLC [id number] Co mmon 00:00:00 00:00:00 VISIT [facility] ESTAB PT - CHI LEVEL 4 [facility] 2021-09-04 2021-09-04 SUB ANNUAL STLMLC STLMLC [id number] Common 00:00:00 00:00:00 MCR [facility] WELLNESS - CHI VISIT [facility] 2021-07-31 2021-07-31 (TEL) STLMLC STLMLC [id number] Co mmon 00:00:00 00:00:00 [facility] 2021-05-27 2021-05-27 OFFICE STLMLC STLMLC [id number] Co mmon 00:00:00 00:00:00 VISIT EST Spir it PT LEVEL 3 - [facility] 2021-05-27 2021-05-27 (TEL) STLMLC STLMLC [id number] Co mmon 00:00:00 00:00:00 [facility] 2021-02-10 2021-02-10 OFFICE STLMLC STLMLC [id number] Co mmon 00:00:00 00:00:00 VISIT [facility] ESTAB PT - CHI LEVEL 4 [facility] 2021 2021 (HOSP F/U) STLMLC STLMLC [id number] Common 00:00:00 00:00:00 [facility] Follow Up - [facility] 2021-01-23 2021-01-23 (TEL) STLMLC STLMLC [id number] Co mmon 00:00:00 00:00:00 [facility] 2020-11-14 2020-11-14 OFFICE STLMLC STLMLC [id number] Co mmon 00:00:00 00:00:00 VISIT [facility] PT - [facility] LEVEL 4 [facility] 2020-11-14 2020-11-14 SUB ANNUAL STLMLC STLMLC [id number] Common 00:00:00 00:00:00 MCR [facility] WELLNESS - [facility] VISIT [facility] 2020-08-13 2020-08-13 Outpatient STLMLC STLMLC [id number] Common 00:00:00 00:00:00 [facility] 2020-06-11 2020-06-11 Outpatient STLMLC STLMLC [id number] Common 00:00:00 00:00:00 [facility] 2020-04-23 2020-04-23 Outpatient STLMLC STLMLC [id number] Common 00:00:00 00:00:00 [facility] 2020-04-16 2020-04-16 Outpatient STLMLC STLMLC [id number] Common 00:00:00 00:00:00 [facility] 2020-04-15 2020-04-15 Outpatient STLMLC STLMLC [id number] Common 00:00:00 00:00:00 [facility] 2020-01-17 2020-01-17 Outpatient STLMLC STLMLC [id number] Common 00:00:00 00:00:00 [facility] 2020-01-15 2020-01-15 Outpatient STLMLC STLMLC [id number] Common 00:00:00 00:00:00 [facility] 2019-11-30 2019-11-30 Outpatient STLMLC STLMLC [id number] Common 00:00:00 00:00:00 [facility] 2019-11-16 2019-11-16 Outpatient STLMLC STLMLC [id number] Common 00:00:00 00:00:00 [facility] 2019-10-26 2019-10-26 [facility] [id number] Common 10:15:00 10:15:00 t Specialty/U Sp eliza Specialty rology - [facility] /[facility] 2019-10-18 2019-10-18 [facility] [id number] Common 11:40:00 11:40:[address] [facility] 2019-10-10 2019-10-10 Outpatient [facility] [id number] Common 09:00:00 09:00:00 t Specialty/U Sp eliza Specialty rology - [facility] 2019-09-27 2019-09-27 Outpatient [facility] [id number] Common 10:00:00 10:00:00 t Specialty/U Sp eliza Specialty rology - [facility] 2019-09-26 2019-09-26 Outpatient Krista [facility] [id number] Common 11:15:00 11:15:00 t Specialty/U Sp eliza Specialty rology - [facility] 2019-09-06 2019-09-06 Outpatient Krista [place] [id number] Common 14:14:00 14:14:00 t Specialty/U Sp eliza Specialty rology - [facility] 2019-08-09 2019-08-09 Outpatient [facility] [id number] Common 10:30:00 10:30:00 t Specialty/U Sp eliza Specialty rology - [facility] 2019-08-07 2019-08-07 Outpatient [facility] [id number] Common 09:45:00 09:45:00 t Specialty/U Sp eliza Specialty rology - [facility] 2019-07-31 2019-07-31 [facility] [id number] Common 09:29:00 09:29:00 t Specialty/U Sp eliza Specialty rology - [facility] 2019-07-27 2019-07-27 Outpatient [facility] [id number] Common 13:45:00 13:45:00 t Specialty/U Sp eliza Specialty rology - [facility] 2019-07-24 2019-07-24 Outpatient [facility] [id number] Common 08:08:00 08:08:[address] [facility] 2019-07-18 2019-07-18 Out[facility] [id number] Common 10:30:00 10:30:[address] [facility] 2019-07-04 2019-07-04 Out[facility] [id number] Common 14:52:00 14:52:[address] [facility] 2019-04-13 2019-04-13 Out[facility] [id number] Common 09:15:00 09:15:[address] [facility] 2019-04-13 2019-04-13 Outpatient [facility] [id number] Common 09:00:00 09:00:[address] [facility] 2019-03-29 2019-03-29 [facility] [id number] Common 15:50:00 15:50:[address] [facility] 2018-12-27 2018-12-27 Out[facility] [id number] Common 16:30:00 16:30:[address] [facility] 2018-12-19 2018-12-19 Outpatient [facility] [id number] Common 16:47:00 16:47:[address] [facility] 2018-12-19 2018-12-19 [facility] [id number] Common 16:04:00 16:04:[address] [facility] 2018-10-05 2018-10-05 Out[facility] [id number] Common 16:53:00 16:53:[address] [facility] 2018-10-03 2018-10-03 Out[facility] [id number] Common 14:09:00 14:09:[address] [facility] 2018-08-02 2018-08-02 Out[facility] [id number] Common 10:00:00 10:00:[address] [facility] 2018-06-14 2018-06-14 Out[facility] [id number] Common 10:36:00 10:36:[address] [facility] 2018-04-20 2018-04-20 Out[facility] [id number] Common 08:30:00 08:30:[address] [facility] 2018-01-20 2018-01-20 Out[facility] [id number] Common 08:30:00 08:30:[address] [facility] 2018-01-19 2018-01-19 Outpatient [facility] [id number] Common 10:01:00 10:01:[address] [facility] 2017-11-02 2017-11-02 Out[facility] [id number] Common 13:45:00 13:45:[address] [facility] 2017-08-10 2017-08-10 Outpatient [facility] [id number] Common 14:45:00 14:45:[address] [facility] 2017-05-28 2017-05-28 Outpatient [facility] [id number] Common 10:15:00 10:15:[address] [facility] Results Test Description Test Time Test Comments Results Result Comments Source CBC W/AUTO DIFF 2022-08-24 00:00:00 Test Item Value Reference Range Interpretation Comme nts NUCLEATED RBCS (test code 0.0 /100 WBC'S See_Comment [Automated message] The = 77569-1) system which ge nerated this result transmit vilma reference range: 0.0 /100 WBC'S. The reference range was not used to interpret th is result as normal/abnormal . ABSOLUTE EOSINOPHILS (test 0.15 K/UL See_Comment [Automated message] The code = 72378-1) system which generated this result transmit vilma reference range: 0.00-0.5 0 K/UL. The reference range was not used to interpret th is result as normal/abnormal . ABSOLUTE LYMPHOCYTES (test 3.23 K/UL See_Comment [Automated message] The code = 40063-3) system which generated this result transmit vilma reference range: 1.00-4.0 0 K/UL. The reference range was not used to interpret th is result as normal/abnormal . ABSOLUTE MONOCYTES (test 0.87 K/UL See_Comment [A utomated message] The code = 02226-9) system which generated this result transmit vilma reference range: 0.20-1.0 0 K/UL. The reference range was not used to interpret th is result as normal/abnormal . ABSOLUTE NEUTROPHILS (test 8.87 K/UL See_Comment H [Automated message] The code = 75194-6) system which generated this result transmit vilma reference range: 1.50-7.5 0 K/UL. The reference range was not used to interpret th is result as normal/abnormal . BASOPHILS (test code = 0.6 % 35297-5) EOSINOPHILS (test code = 1.1 % 67375-9) HEMATOCRIT (test code = 35.4 % See_Comment L [Au tomated message] The 59657-4) system which ge nerated this result transmit vilma reference range: 40.0-51. 0 %. The reference range was not used to interpret th is result as normal/abnormal . HEMOGLOBIN (test code = 11.4 G/DL See_Comment L [Au tomated message] The 8-7) system which [employer] nerated this result transmit vilma reference range: 13.5-17. 0 G/DL. The reference range was not used to interpret th is result as normal/abnormal . LYMPHOCYTES (test code = 24.2 % 55818-2) MCH (test code = 19210-8) 30.2 PG See_Comment [ Automated message] The system which [employer] nerated this result transmit vilma reference range: 25.0-33. 0 PG. The reference range was not used to interpret th is result as normal/abnormal . MCHC (test code = 57279-6) 32.2 G/DL See_Comment [Automated message] The system which [employer] nerated this result transmit vilma reference range: 31.0-36. 0 G/DL. The reference range was not used to interpret th is result as normal/abnormal . MCV (test code = 06782-4) 93.9 fL See_Comment [ Automated message] The system which [employer] nerated this result transmit vilma reference range: 80.0-99. 0 fL. The reference range was not used to interpret th is result as normal/abnormal . MONOCYTES (test code = 6.5 % 86428-0) NEUTROPHILS (test code = 66.6 % 22514-5) PLATELET COUNT (test code 339 K/UL See_Comment [ Automated message] The = 96844-1) system which [employer] nerated this result transmit vilma reference range: 130-400 K/UL. The reference range was not used to interpret th is result as normal/abnormal . RBC (test code = 21296-7) 3.77 M/UL See_Comment L [ Automated message] The system which [employer] nerated this result transmit vilma reference range: 4.50-6.1 0 M/UL. The reference range was not used to interpret th is result as normal/abnormal . RDW (test code = 37727-3) 14.7 % See_Comment [ Automated message] The system which [employer] nerated this result transmit vilma reference range: 11.5-15. 0 %. The reference range was not used to interpret th is result as normal/abnormal . WBC (test code = 73906-4) 13.3 K/UL See_Comment H [ Automated message] The system which [employer] nerated this result transmit vilma reference range: 3.5-11.0 K/UL. The reference range was not used to interpret th is result as normal/abnormal . HEMOGLOBIN [id number] 00:00:00 Test Item Value Reference Range Interpretation Comments HEMOGLOBIN A1c (test 6.1 % See_Comment H [Autom ated message] The code = 4548-4) system which generated this result tra nsmitted reference range : 4.2-5.6 %. The referenc e range was not used to interpret this result as normal/abnormal . LIPID PANEL WITH REFLEX DIRECT [id number] 00:00:00 Test Item Value Reference Range Interpretation Comments CALC LDL CHOL (test 69 MG/DL See_Comment [Automa vilma message] code = 11760-4) The system [facility] [facility] generated this result transmit vilma reference range : <100 MG/DL. The reference range was not used to interpret this result as normal/abnormal . CHOLESTEROL (test code 160 MG/DL See_Comment [Aut omated message] = 2092-3) The system [employer] generated this result transmit vilma reference range : <200 MG/DL. The reference range was not used to interpret this result as normal/abnormal . HDL CHOLESTEROL (test 70 MG/DL See_Comment [Auto mated message] code = 2085-9) The system [employer] generated this result transmit vilma reference range : >39 MG/DL. The refe rence range was not u sed to interpret th is result as normal/abnormal . RISK RATIO LDL/HDL 0.99 RATIO See_Comment [Automat ed message] (test code = 73936-9) The sy stem which generated this result transmit vilma reference range : <3.55 RATIO. Th e reference range was not used to interpret this result as normal/abnormal . TRIGLYCERIDES (test 120 MG/DL See_Comment [Automa vilma message] code = 2571-8) The system [facility] generated this result transmit vilma reference range : <150 MG/DL. The reference range was not used to interpret this result as normal/abnormal . ALBUMIN/CREATININE RATIO, RANDOM [id number] 00:00:00 Test Item Value Reference Range Interpretation Comments ALBUMIN, URINE, 6.6 MG/DL NOT ESTAB MG/DL RANDOM (test code = 83397-7) CALC ALBUMIN/CREAT, 68 MG/G See_Comment H [Automa vilma message] The RND (test code = system [facility] generated 53808-4) this result tra nsmitted reference range : <30 MG/G. The refer ence range was not u sed to interpret this result as normal/abnormal . CREATININE, URINE, 97.0 MG/DL NOT ESTAB MG/DL CONC. (test code = 2161-8) COMPREHENSIVE METABOLIC [id number] 00:00:00 Test Item Value Reference Range Interpretation Comments ALBUMIN (test code = 4.6 G/DL See_Comment [Autom ated message] 1758-7) The system [facility] generated this result transmit vilma reference range : 3.5-5.2 G/DL. T he reference range was not used to interpret this result as normal/abnormal . ALKALINE PHOSPHATASE 79 U/L See_Comment [Autom ated message] (test code = 6768-6) The s tem which generated this result transmit vilma reference range : 40-125 U/L. The reference range was not used to interpret this result as normal/abnormal . BILIRUBIN, TOTAL <0.2 MG/DL See_Comment [Automated message] (test code = 1975-2) The sy tem which generated this result transmit vilma reference range : <=1.2 MG/DL. Th e reference range was not used to interpret this result as normal/abnormal . BUN (test code = 27 MG/DL See_Comment H [Automated message] 3094-0) The system [facility] generated this result transmit vilma reference range : 8-23 MG/DL. The reference range was not used to interpret this result as normal/abnormal . CALCIUM (test code = 9.5 MG/DL See_Comment [Autom ated message] 58531-8) The system [facility] generated this result transmit vilma reference range : 8.5-10.5 MG/DL. The reference range was not used to interpret this result as normal/abnormal . CALC A/G RATIO (test 2.2 RATIO See_Comment [Autom ated message] code = 1759-0) The system [facility] generated this result transmit vilma reference range : 1.0-2.6 RATIO. The reference range was not used to interpret this result as normal/abnormal . CALC BUN/CREAT (test 26 RATIO See_Comment [Autom ated message] code = 3097-3) The system [facility] generated this result transmit vilma reference range : 6-28 RATIO. The reference range was not used to interpret this result as normal/abnormal . CALC GLOBULIN (test 2.1 G/DL See_Comment [Automa vilma message] code = 55896-0) The system [facility] generated this result transmit vilma reference range : 1.9-3.7 G/DL. T he reference range was not used to interpret this result as normal/abnormal . CARBON DIOXIDE (test 21 MEQ/L See_Comment [Autom ated message] code = 1963-8) The system [facility] generated this result transmit vilma reference range : 19-31 MEQ/L. Th e reference range was not used to interpret this result as normal/abnormal . CHLORIDE (test code 102 MEQ/L See_Comment [Automa vilma message] = 2075-0) The system [facility] [employer] generated this result transmit vilma reference range : 95-107 MEQ/L. T he reference range was not used to interpret this result as normal/abnormal . CREATININE (test 1.04 MG/DL See_Comment [Automated message] code = 2160-0) The system [employer] generated this result transmit vilma reference range : 0.80-1.40 MG/DL . The reference range was not used to interpret this result as normal/abnormal . eGFR (2020 CKD-EPI) 75 ML/MIN/1.73 See_Comment [Auto mated message] (test code = The system [facility] [employer] 09828-1) generated this result transmit vilma reference range : >60 ML/MIN/1.73. Th e reference range was not used to interpret this result as normal/abnormal . GLUCOSE (test code = 97 MG/DL See_Comment [Autom ated message] 1558-6) The system [facility] [employer] generated this result transmit vilma reference range : 70-99 MG/DL. Th e reference range was not used to interpret this result as normal/abnormal . POTASSIUM (test code 5.4 MEQ/L See_Comment [Autom ated message] = 2823-3) The system [facility] [employer] generated this result transmit vilma reference range : 3.5-5.4 MEQ/L. The reference range was not used to interpret this result as normal/abnormal . PROTEIN, TOTAL (test 6.7 G/DL See_Comment [Autom ated message] code = 2885-2) The system [employer] generated this result transmit vilma reference range : 6.1-8.3 G/DL. T he reference range was not used to interpret this result as normal/abnormal . AST (test code = 12 U/L See_Comment [Automated message] 1920-8) The system [facility] [employer] generated this result transmit vilma reference range : 9-50 U/L. The reference range was not used to interpret this result as normal/abnormal . ALT (test code = 12 U/L See_Comment [Automated message] 1742-6) The system [employer] generated this result transmit vilma reference range : 5-50 U/L. The reference range was not used to interpret this result as normal/abnormal . SODIUM (test code = 141 MEQ/L See_Comment [Automa vilma message] 2951-2) The system [employer] generated this result transmit vilma reference range : 133-146 MEQ/L. The reference range was not used to interpret this result as normal/abnormal . BLOOD [id number] 10:00:52 Test Item Value Reference Range Interpretation Comments CULTURE (BEAKER) (test No growth in 5 days code = 1095) BLOOD [id number] 10:00:52 Test Item Value Reference Range Interpretation Comments CULTURE (BEAKER) (test No growth in 5 days code = 1095) POC-Glucose [id number] 12:17:25 Test Item Value Reference Range Interpretation Comments POC-Glucose Meter (test 152 mg/dL 70-110 H : TE STED AT SLSL code = 1538) [address] [place] [address]: Truck Driver Heavy/Techni rasheeda ID = [id number] for Abhishek Farideh ee Lab Interpretation (test Abnormal code = 87579-1) [facility]-Glucose [id number] 12:17:25 Test Item Value Reference Range Interpretation Comments POC-Glucose Meter (test 152 mg/dL 70-110 H : TE STED AT SLSL code = 1538) [address] [place] [address]: Truck Driver Heavy/Techni rasheeda ID = [id number] for Abhishek, Farideh ee Lab Interpretation (test Abnormal code = 95774-6) [facility] [id number] 12:17:25 Test Item Value Reference Range Interpretation Comments POC-Glucose Meter (test 152 mg/dL 70-110 H : TE STED AT SLSL code = 1538) [address] [place], [place] [address]: Truck Driver Heavy/Techni rasheeda ID = [id number] for Abhishek, Farideh ee Lab Interpretation (test Abnormal code = 11124-3) [facility] [id number] 12:17:25 Test Item Value Reference Range Interpretation Comments POC-Glucose Meter (test 152 mg/dL 70-110 H : TE STED AT SLSL code = 1538) [address] [place], [place] [address]: Truck Driver Heavy/Techni rasheeda ID = [id number] for Abhishek, Farideh ee Lab Interpretation (test Abnormal code = 70047-9) [facility] [id number] 12:17:25 Test Item Value Reference Range Interpretation Comments POC-GLUCOSE METER 152 mg/dL 70-110 H : TESTED A T [facility] 1317 (BEAKER) (test code [address], = 1538) [facility] [address]: Truck Driver Heavy/Techni rasheeda ID = [id number] for Will [place] watson RAD, CHEST, 1 VIEW, NON [id number] 07:24:00Reason for exam:->Right lower lobar pnemonia follow-upShould this be performed at the bedside?->Yes [facility] : 1950 Sex: MFINAL REPORT Chest one view: HISTORY: Right lower lobe pneumonia follow- up There are no prior studies for comparison. Mild airspace opacities are present in the right lung base. There is no pleural effusion. The cardiomediastinal silhouette is within normal limits. The bony thorax appears in tact. Signed: Syd Zavala [facility] Verified Date/Time: 06/07/2022 07:24:55 XR chest 1 view portable / [id number] 07:24:00FINAL REPORT Chest one view: HISTORY: Right lower lobe pneumonia follow-up There are no prior studies for comparison. Mild airspace opacities are present in the right lung base. There is no pleural effusion. The cardiomediastinal silhouette is within normal limits. The bony thoraxappears intact. Signed: Syd Zavala [facility] Verified Date/Time: 06/07/2022 07:24:55 [facility] POCT-GLUCOSE [id number] 06:29:56 Test Item Value Reference Range Interpretation Comments POC-GLUCOSE METER 121 mg/dL 70-110 H : TESTED A T [facility] [address] (BEAKER) (test code [address], = 1538) [facility] [place] [address]: Truck Driver Heavy/Techni rasheeda ID = [id number] for Effie Molina BASIC METABOLIC [id number] 06:04:12 Test Item Value Reference Range Interpretation [...] De scription 1092) sq m Result G1 Norm al or high >=90 G2 Mildly decreased 60-89 G3a Mildl y to moderately 45-5 9 G3b Moderately to s everely 30-44 G4 Severl y decreased 15-29 G5 Kidne y failure <15Reported eGF R is based on the CKD-EPI 2021 equation that d oes not use a race coefficientEsti mated GFR is not as accur ate as Creatinine [place] reena in predicting glom erular filtration rate . Estimated GFR is not appl icable for dialysis patien ts Truck Driver Heavy ID - [id number] ID - [id number] ID - [id number] ID - PRMGIKYJY519Pkowvqfc ID - PGSFKELJH683Msoutnfi ID - [id number] ID - PIIGUDTLP539Ociyomje ID - KZXZLZEYT523Zqhdcyjb ID - YHDZPMUQF948Xwgmbyuf ID - [id number] ID - FWPZQTVZS770Jsnutebe ID - [id number] W/PLT COUNT & AUTO [id number] 05:54:59 Test Item Value Reference Range Interpretation [...] PERCENT (BEAKER) (test code = 2801) POCT-GLUCOSE [id number] 22:13:06 Test Item Value Reference Range Interpretation Comments POC-GLUCOSE METER 177 mg/dL 70-110 H : TESTED A T [facility] [address] (BEAKER) (test code [facility], = 1538) [place] [address]: Truck Driver Heavy/Techni rasheeda ID = [id number] for Effie Molina POCT-GLUCOSE [id number] 15:57:48 Test Item Value Reference Range Interpretation Comments POC-GLUCOSE METER 159 mg/dL 70-110 H : TESTED A T [address] (BEAKER) (test code [facility], = 1538) [place] [address]: Truck Driver Heavy/Techni rasheeda ID = [id number] for [place] Trinh [id number] 13:23:05 Test Item Value Reference Range Interpretation Comments PROCALCITONIN (BEAKER) (test code = < ng/mL <0.05 3036) SEPSIS RISK (ng/mL)Low: 0.05-0.50Intermediate: 0.51-2.00High: >=2.01POCT- GLUCOSE [id number] 12:14:53 Test Item Value Reference Range Interpretation Comments POC-GLUCOSE METER 114 mg/dL 70-110 H : TESTED A T [facility] [address] (BEAKER) (test code [facility], = 1538) [place] [address]: Truck Driver Heavy/Techni rasheeda ID = [id number] for Will [place] marrero POCT-GLUCOSE [id number] 06:42:47 Test Item Value Reference Range Interpretation Comments POC-GLUCOSE METER 174 mg/dL 70-110 H : TESTED A T [facility] [address] (BEAKER) (test code [address], = 1538) [facility] [address]: Truck Driver Heavy/Techni rasheeda ID = [id number] for Breanna Saul [id number] 06:09:17 Test Item Value Reference Range Interpretation Comments D-DIMER QUANTITATIVE 0.30 MG/L FEU <0.50 Final Information (BEAKER) (test code = (Auto Output) 671) REGARDING D-DIMER RESULTS: The 98% NPV (Negative Predictive Value) for DVT/PE exclusion is 0.50 mg/LFEU as suggested by the box press operator and as approved by the FDA.C-REACTIVE [id number] 06:03:59 Test Item Value Reference Range Interpretation Comments C-REACTIVE PROTEIN (BEAKER) (test 10.74 mg/dL 0.00-0.50 H code = 676) Truck Driver Heavy ID - [id number] METABOLIC [id number] 06:03:07 Test Item Value Reference Range Interpretation [...] not appl icable for dialysis patien ts Truck Driver Heavy ID - [id number] ID - TLRQ54Igdkhpzn ID - BGDF17Hqhigxxk ID - IIXK47Mkqmxpyn ID - HBNI02Badtgtnw ID - PXDS88Hqyggtfl ID - BJLE27Oyzprrpl ID - FBPD39Cccupmlq ID - KHPT27Tkznhdnc ID - PIDX00Covoyhpd ID - [id number] ID - [id number] W/PLT COUNT & AUTO [id number] 05:46:10 Test Item Value Reference Range Interpretation [...] (BEAKER) (test code = 2801) Sodium, random [id number] 23:01:58 Test Item Value Reference Range Interpretation Comments Sodium Urine (test 55 meq/L code = 2955-3) MALLORY (test code = Reference Range: No MALLORY) NormalsOperator ID - [id number] [facility] [id number] 23:01:58 Test Item Value Reference Range Interpretation Comments Sodium Urine (test 55 meq/L code = 2955-3) MALLORY (test code = Reference Range: No MALLORY) NormalsOperator ID - [id number] [facility] [id number] 23:01:58 Test Item Value Reference Range Interpretation Comments Sodium Urine (test 55 meq/L code = 2955-3) MALLORY (test code = Reference Range: No MALLORY) NormalsOperator ID - [id number] [facility] random [id number] 23:01:58 Test Item Value Reference Range Interpretation Comments Sodium Urine (test 55 meq/L code = 2955-3) MALLORY (test code = Reference Range: No MALLORY) NormalsOperator ID - [id number] [facility]ODI[facility], RANDOM [id number] 23:01:58 Test Item Value Reference Range Interpretation Comments SODIUM URINE (BEAKER) (test code = 55 meq/L 243) Reference Range: No NormalsOperator ID - [id number] 20:22:26 Test Item Value Reference Range Interpretation Comments POC-GLUCOSE METER 180 mg/dL 70-110 H : TESTED A T [facility] [address] (Meebler) (test code [address], = 1538) [place] [address]: Truck Driver Heavy/Techni rasheeda ID = [id number] for Breanna Saul [id number] 18:10:36 Test Item Value Reference Range Interpretation Comments D-DIMER QUANTITATIVE 0.31 MG/L FEU <0.50 Final Information (Meebler) (test code = (Auto Output) 671) REGARDING D-DIMER RESULTS: The 98% NPV (Negative Predictive Value) for DVT/PE exclusion is 0.50 mg/LFEU as suggested by the box press operator and as approved by the FDA.[id number] 17:43:53 Test Item Value Reference Range Interpretation Comments SODIUM (KetchupppMCKAYLA) (test code = 381) 133 meq/L 135-148 L Truck Driver Heavy ID - [id number] 16:28:23 Test Item Value Reference Range Interpretation Comments POC-GLUCOSE METER 149 mg/dL 70-110 H : TESTED A T [facility] [address] (Meebler) (test code [address], = 1538) [place] [address]: Truck Driver Heavy/Techni rasheeda ID = [id number] for Natty Berger Strep pneumoniae [id number] 14:13:59 Test Item Value Reference Range Interpretation Comments Strep pneumoniae Presumptive negative Presumptive Antigen (test code = [place] [address]-0) pneumonia - see pneumococcal comment pneumonia - [...] test. Lab Interpretation Normal (test code = 44247-9) [facility] [id number] 14:13:59 Test Item Value Reference Range Interpretation Comments Strep pneumoniae Presumptive negative Presumptive Antigen (test code = [place] [address]-0) pneumonia - see pneumococcal comment pneumonia - [...] test. Lab Interpretation Normal (test code = 99130-3) [facility] [id number] 14:13:59 Test Item Value Reference Range Interpretation Comments Strep pneumoniae Presumptive negative Presumptive Antigen (test code = [place] [address]-4) pneumonia - see pneumococcal comment pneumonia - [...] test. Lab Interpretation Normal (test code = 08220-1) [facility] [id number] 14:13:59 Test Item Value Reference Range Interpretation Comments Strep pneumoniae Presumptive negative Presumptive Antigen (test code = [place] [address]-2) pneumonia - see pneumococcal comment pneumonia - [...] test. Lab Interpretation Normal (test code = 00147-9) [facility] HospitalTRE PNEUMONIAE [id number] 14:13:59 Test Item Value Reference Range Interpretation [...] the detection limit of the test. Osmolality, [id number] 14:09:29 Test Item Value Reference Range Interpretation Comments Osmolality, Ur (test code 627 See_Comment [ Automated message] = 0765-5) The system [employer] generated this result transmitted ref erence range: 50-1,200 mOsm/kg mOsm/kg . The reference range was not used to int erpret this result as normal/abnormal . Lab Interpretation (test Normal code = 03728-3) [facility], [id number] 14:09:29 Test Item Value Reference Range Interpretation Comments Osmolality, Ur (test code 627 See_Comment [ Automated message] = 2695-5) The system [employer] generated this result transmitted ref erence range: 50-1,200 mOsm/kg mOsm/kg . The reference range was not used to int erpret this result as normal/abnormal . Lab Interpretation (test Normal code = 63871-7) [facility], [id number] 14:09:29 Test Item Value Reference Range Interpretation Comments Osmolality, Ur (test code 627 See_Comment [ Automated message] = 2695-5) The system [employer] generated this result transmitted ref erence range: 50-1,200 mOsm/kg mOsm/kg . The reference range was not used to int erpret this result as normal/abnormal . Lab Interpretation (test Normal code = 67098-6) [facility], [id number] 14:09:29 Test Item Value Reference Range Interpretation Comments Osmolality, Ur (test code 627 See_Comment [ Automated message] = 2695-5) The system [employer] generated this result transmitted ref erence range: 50-1,200 mOsm/kg mOsm/kg . The reference range was not used to int erpret this result as normal/abnormal . Lab Interpretation (test Normal code = 42110-9) [facility], [id number] 14:09:29 Test Item Value Reference Range Interpretation Comments OSMOLALITY URINE 627 mOsm/kg See_Comment [Automated message] (Meebler) (test code = The stem which 614) generated this result transmitted ref erence range: 50-1,200 mOsm/kg. The reference range was not used to int erpret this result as normal/abnormal . C-REACTIVE [id number] 09:00:28 Test Item Value Reference Range Interpretation Comments C-REACTIVE PROTEIN (Meebler) (test 15.24 mg/dL 0.00-0.50 H code = 676) Truck Driver Heavy ID - [id number] 07:12:01 Test Item Value Reference Range Interpretation Comments POC-GLUCOSE METER 103 mg/dL 70-110 : TESTED A T [facility] [address] (Meebler) ([facility] [address] = 1538) [facility] [address]: Truck Driver Heavy/Techni rasheeda ID = [id number] for Yana Barry TROPONIN [id number] 05:28:57 Test Item Value Reference Range Interpretation [...] failure, acidosis, acute neurological disease, and persistent tachyarrhythmia.Truck Driver Heavy ID - LITOHEMOGLOBIN A1C 2022-06-05 05:27:58 Test Item Value Reference Range Interpretation Comments HEMOGLOBIN A1C (BEAKER) (test code = 6.5 % 4.3-6.1 H 368) Truck Driver Heavy ID - LITOSODIUM, RANDOM [id number] 05:26:55 Test Item Value Reference Range Interpretation Comments SODIUM URINE (BEAKER) (test code = 65 meq/L 243) Reference Range: No NormalsOperator ID - [id number] 05:17:32 Test Item Value Reference Range Interpretation Comments MAGNESIUM (BEAKER) (test code = 1.9 mg/dL 1.5-3.0 627) Truck Driver Heavy ID - LITOOperator ID - LITOOperator ID - LITOOperator ID - CHARIS COMPREHENSIVE METABOLIC [id number] 05:17:25 Test Item Value Reference Range Interpretation [...] not appl icable for dialysis patien ts Truck Driver Heavy ID - LITOOperator ID - LITOOperator ID - LITOOperator ID - LITOOperator ID - LITOOperator ID - LITOOperator ID - LITOOperator ID - LITOOperator ID - LITOOperator ID - LITOOperator ID - LITOOperator ID - LITOOperator ID - LITOOperator ID - LITOOperator ID - LITOOperator ID - LITOLIPID [id number] 05:16:47 Test Item Value Reference Range Interpretation [...] Borderline 130-159 High 160-189 Very High >=190 Truck Driver Heavy ID - LITOOperator ID - LITOOperator ID - LITOBlood gas, [id number] 05:14:45 Test Item Value Reference Range Interpretation Comments pH, Arterial (test code 7.43 7.35-7.45 = 2744-1) pCO2, Arterial (test 36 See_Comment [Autom ated code = 2018-09) message] The system which generated this result [...] = 8310-5) FIO2 (test code = 1819) 28.0 Lab Interpretation Abnormal (test code = 96633-7) [facility], [id number] 05:14:45 Test Item Value Reference Range Interpretation Comments pH, Arterial (test code 7.43 7.35-7.45 = 2744-1) pCO2, Arterial (test 36 See_Comment [Autom ated code = 2018-09) message] The system which generated this result [...] 28 Lab Interpretation Abnormal (test code = 11769-9) [facility], [id number] 05:14:45 Test Item Value Reference Range Interpretation [...] 28 Lab Interpretation Abnormal (test code = 76775-4) [facility], [id number] 05:14:45 Test Item Value Reference Range Interpretation [...] = 8310-5) FIO2 (test code = 1819) 28.0 Lab Interpretation Abnormal (test code = 43528-2) [facility], [id number] 05:14:45 Test Item Value Reference Range Interpretation [...] (BEAKER) (test code = 1819) 28.0 PROTHROMBIN TIME/[id number] 05:14:04 Test Item Value Reference Range Interpretation [...] is 2.5-3.5 for patients with mechanical heart valves.[id number] 05:14:03 Test Item Value Reference Range Interpretation Comments PHOSPHORUS (BEAKER) (test code = 3.7 mg/dL 2.5-4.5 604) Truck Driver Heavy ID - LITOCBC W/PLT COUNT & AUTO [id number] 05:03:57 Test Item Value Reference Range Interpretation [...] H PERCENT (BEAKER) (test code = 2801) [id number] 00:00:00Ordered by an unspecified provider.[facility]
[2023-01-01] MEDS ORDERED: NA CHLORIDE 0.9% 1,000 ML ONE ×2 (16:35→17:10)
[2023-01-01 16:51] LABS: Absolute Lymphocytes (CBC) 0.9 K/uL (0.7-4.9); Hematocrit 30.7 % (39.6-49.0); Lymphocytes % 3.7 % (15.3-44.8); MCV 87.3 fL (80-100); MPV 7.5 fL (7.6-11.3); Platelets 391 thou/uL (152-406); RBC Red Blood Cell Count 3.51 M/uL (4.33-5.43)
[2023-01-01] MEDS ORDERED: NOREPINEPHRINE BITARTRATE/D5W 4 MG/250 ML BAG IV ONE ×2 (17:03→21:48)
[2023-01-01 17:09] LABS: Protime INR 1.47
[2023-01-01 17:14] LABS: Albumin 2.4 g/dL (3.4-5.0); Bilirubin Direct 0.2 mg/dL (0-0.2); Bilirubin Indirect, Calculated 0.4 mg/dL (0.2-0.8); Bilirubin Total 0.6 mg/dL (0.2-1.0); Magnesium 2.4 mg/dL (1.6-2.4)
[2023-01-01] MEDS: NOREPINEPHRINE 4 MG in D5W 250 ML IV SCH (17:20)
--- NOTE | 2023-01-01 17:22 | RAD REPORT ---
EXAM DESCRIPTION: [facility] Single View01/01/2023 5:08 pm CLINICAL HISTORY: sob COMPARISON: 12/29/2022 FINDINGS: Worsening in reticulonodular opacities right lung which are moderate. Chronic air trapping left lung base Heart is normal size Right infrahilar opacity unchanged IMPRESSION: Worsening in moderate reticulonodular opacities right lung which may indicate atypical i nfection Right infrahilar opacity unchanged Three to [address] chest report December 21, 2022 for recommendation
[2023-01-01 17:48] LABS: Blood Morphology Comment NOT SEEN (NOT SEEN); Platelet Estimate ADEQ; Toxic Granulation 1+
[2023-01-01 17:49] LABS: White Blood Cell Scan OK (OK)
--- NOTE | 2023-01-01 18:29 | RAD REPORT ---
[facility] CLINICAL HISTORY: Device placement/central venous catheter placement IMPRESSION: Central venous catheter has been placed into the mid superior vena cava. No pneumothorax
--- NOTE | 2023-01-01 18:34 | ER ---
Nurse's Notes [facility] Name: Jose Marcelino Age: 72 yrs Sex: Male : 1950 Arrival Date: 01/01/2023 Time: 16:06 Bed 5 Private MD: Diagnosis: Severe sepsis with septic shock;Acute kidney failure, unspecified;Pneumonia, unspecified organism Presentation: 01/01 16:15 Chief complaint: EMS states: pt is from [facility]. was going to the bathroom in kc6 his wheelchair when he had a witnessed syncope by his son. son started CPR. pt was awake A\T\O x4 for EMS with a BGL of 172. lowest BP 70/37 for EMS. Coronavirus screen: At this time, the client does not indicate any symptoms associated with coronavirus-19. Ebola Screen: No symptoms or risks identified at this time. Initial Sepsis Screen: Does the patient meet any 2 criteria? Systolic BP < 90 mmHg. Does the patient have a suspected source of infection? No. Patient's initial sepsis screen is negative. Risk Assessment: Do you want to hurt yourself or someone else? Patient reports no desire to harm self or others. Onset of symptoms was January 01, 2023. 16:15 Method Of Arrival: EMS: [facility] 16:15 Acuity: [facility]UC 2 kc6 Triage Assessment: 16:17 General: Appears in no apparent distress. comfortable, Behavior is calm, cooperative, kc6 appropriate for age. Pain: Denies pain. EENT: No signs and/or symptoms were reported regarding the EENT system. Neuro: Level of Consciousness is awake, alert, obeys commands, Oriented to person, place, time, situation, Appropriate for age Reports dizziness, a syncopal episode weakness. Cardiovascular: Denies chest pain, Heart tones S1 S2 present Capillary refill < 3 seconds Rhythm is atrial fibrillation with rapid ventricular response. Respiratory: Airway is patent Trachea midline Respiratory effort is even, unlabored, Respiratory pattern is regular, symmetrical. GI: No signs and/or symptoms were reported involving the gastrointestinal system. : No signs and/or symptoms were reported regarding the genitourinary system. Derm: No signs and/or symptoms reported regarding the dermatologic system. Skin is intact, is healthy with good turgor, Skin is normal, pale. Musculoskeletal: No signs and/or symptoms reported regarding the musculoskeletal system. Circulation, motion, and sensation intact. Capillary refill < 3 seconds, Range of motion: intact in all extremities. Historical: - Allergies: 16:17 Atrovent; kc6 16:17 Amoxicillin; kc6 16:17 Hydrochlorothiazide; kc6 16:17 limestone; kc6 - PMHx: 16:17 Chronic obstructive lung disease; diabetes mellitus; Hypertensive disorder; Atrial kc6 fibrillation; Asthma; - Immunization history:: Adult Immunizations unknown. - Social history:: Smoking status: unknown. Screenin:19 [facility] ED Fall Risk Assessment (Adult) History of falling in the last 3 months, kc6 including since admission Yes- physiologic fall (2 pts) Confusion or Disorientation No (0 pts) Intoxicated or Sedated No (0 pts) Impaired Gait No (0 pts) Mobility Assist Device Used No (0 pt) Altered Elimination No (0 pt) Score/Fall Risk Level 0 - 2 = Low Risk. Abuse screen: Denies threats or abuse. Denies injuries from another. Nutritional screening: No deficits noted. Tuberculosis screening: No symptoms or risk factors identified. Assessment: 16:20 Reassessment: please see triage assessment. kc6 16:47 General: Appears in no apparent distress. uncomfortable, Behavior is calm, cooperative, ph appropriate for age. Pain: Complains of pain in back. Neuro: Level of Consciousness is awake, obeys commands, lethargic, Oriented to person, place, situation. Cardiovascular: Reports fatigue, lightheadedness, shortness of breath, syncope, Denies chest pain, nausea, Patient's skin is warm and dry. 19:37 Reassessment: Patient and/or family updated on plan of care and expected duration. Pain vc1 level reassessed. Patient is alert, oriented x 3, equal unlabored respirations, skin warm/dry/pink. 01/05 14:00 Reassessment:. db Vital Signs: 01/01 16:15 BP 78 / 40; Pulse 106; Resp 18 S; Pulse Ox 95% on R/A; Weight 65.77 kg (R); Height 5 kc6 ft. 8 in. (R); 16:30 BP 83 / 54; Pulse 82; Resp 16; Pulse Ox 99% ; ph 16:45 BP 71 / 38; Pulse 110; Resp 18; Pulse Ox 100% on 3 lpm NC; ph 17:05 BP 82 / 32; Pulse 87; ph 17:15 BP 89 / 46; Pulse 69; Resp 18; Pulse Ox 100% on 3 lpm NC; ph 17:30 BP 108 / 35; Pulse 72; Resp 18; Pulse Ox 100% on 3 lpm NC; ph 17:45 BP 109 / 37; Pulse 74; Resp 18; Pulse Ox 100% on 3 lpm NC; ph 18:00 BP 68 / 54; Pulse 73; Resp 18; Pulse Ox 100% on 3 lpm NC; ph 18:15 BP 88 / 38; Pulse 73; Resp 16; Pulse Ox 100% on 3 lpm NC; ph 18:30 BP 114 / 39; Pulse 75; Resp 20; Pulse Ox 99% on 3 lpm NC; ph 18:57 BP 114 / 35; Pulse 80; Resp 20; Pulse Ox 99% on 3 lpm NC; ph 19:00 BP 119 / 48; Pulse 77; Resp 18; Pulse Ox 99% ; vc1 19:20 BP 120 / 39; Pulse 81; Resp 15; Pulse Ox 98% ; vc1 20:30 Temp 97.1; rv1 21:15 BP 86 / 42; Pulse 77; Resp 16; Pulse Ox 92% on R/A; vc1 21:30 BP 104 / 48; Pulse 78; Resp 15; Pulse Ox 98% on 2 lpm NC; vc1 01/05 02:45 BP 153 / 42; Pulse 71; Resp 18 S; Pulse Ox 100% on 2 lpm NC; ha1 01/01 16:15 Body Mass Index 22.05 (65.77 kg, 172.72 cm) [facility] ED Course: 01/01 16:08 Patient arrived in ED. em1 16:09 Promise Chahal [facility]NP-C [facility]. kb 16:09 Reed Hill DO is Attending Physician. kb 16:17 Triage completed. kc6 16:17 Arm band placed on. kc6 16:19 Patient has correct armband on for positive identification. Bed in low position. Call [facility] light in reach. Side rails up X2. Client placed on continuous cardiac and pulse oximetry monitoring. NIBP monitoring applied. cardiac monitor on. 16:19 Maintain EMS IV. Dressing intact. Good blood return noted. Site clean \T\ dry. Gauge \T\ usama 6 site: 20G RW. Oxygen administration via nasal cannula \T\ 2L/min. 16:20 Daiana Cesar, RN is Primary Nurse. ph 16:30 Inserted saline lock: 22 gauge in left antecubital area, using aseptic technique. ph 17:10 Chest Single View XRAY In Process Unspecified. EDMS 17:30 Assisted provider with central line placement. Set up central line tray. Triple lumen ph line placed in right internal jugular. Line placed by Reed Hill DO Placement verified by CXR, blood return, Dressed with Tegaderm, Blood was collected. Patient tolerated well. Before procedure, did Practitioner(s) obtain informed consent? Yes. Patient \T\ family education about procedure, CLABSI prevention and S/S of infection? Yes. Time-out/Briefing performed prior to start of procedure? Yes. Was handwashing/sanitizing done immediately prior to procedure? Yes. Was patient positioned to in a way to prevent air embolism? Yes. Was procedure site sterilized? Yes, with chlorhexidine. Was the site allowed to dry? Yes. Was local anesthetic and/or sedation utilized? Yes. During the procedure, did the Practitioner(s) maintain a sterile field? Yes. Were unused ports clamped during insertion? Yes. Was a 2nd qualified MD obtained after 3 unsuccessful insertion attempts? N/A. Was blood aspirated from each lumen? Yes. After the procedure, did the Practitioner(s) clean the site and apply a sterile dressing? Yes. 18:12 CXR XRAY In Process Unspecified. EDMS 19:02 Attempted to contact [facility] for transfer, no answer. Will try to call again. rv1 19:24 Attempted to contact [facility] for a transfer, no answer. Will call back. rv1 19:42 Initiated transfer with Perri at [facility]. rv1 19:56 [facility] declined due to capacity, transfer center advised to call Patients rv1 Abad before they will attempt transfer to [facility]. Provider notified. 20:09 Family is requesting patient be sent to [facility]. rv1 20:27 Initiated transfer with Angie at [facility]. rv1 21:05 [facility] declined due to capacity, attempting transfer to [address] 21:10 Patients son has expressed that he does not want father transferred to [facility] and rv1 would like to wait for [place] to have a bed open up. Provider notified, transfer canceled. 21:17 Kiana Devine MD is Hospitalizing Provider. kb 21:30 Patient admitted, IV remains in place. vc1 22:10 Notified Nurse Practitioner and/or Physician Business Services Administrator of a critical lab result(s), vc1 notified JOB MOLDER lactate of 5.3. 22:21 CT Chest Abdomen Pelvis W/O Contrast In Process Unspecified. EDMS 23:38 Jeffers cath inserted, using sterile technique, 18 Fr., by or, balloon inflated, to km8 gravity drainage, clamped. Patient tolerated well. 01/03 19:28 Primary Nurse role handed off by Daiana Cesar, RN bp 19:28 Aayush Gonzalez, RN is Primary Nurse. bp Administered Medications: 01/01 16:30 Drug: NS 0.9% IV 1000 ml IV at 1000 ml once Route: IV; Rate: 1000 ml; Site: right ph antecubital; 17:00 Follow up: Response: No adverse reaction; IV Status: Completed infusion ph 17:00 Drug: NS 0.9% IV 1000 ml IV at 1000 ml once Route: IV; Rate: 1000 ml; Site: right ph antecubital; 17:30 Follow up: Response: No adverse reaction; IV Status: Completed infusion ph 17:20 Drug: Norepinephrine IV 0.1 mcg/kg/min IV at calculated rate See Administration ph Instructions; (Standard concentration 4 mg / 250 mL D5W); Recommended max rate 3 mcg/kg/min; Titrate 0.05 mcg/kg/min as often as every 5 minutes to achieve goal (see titration policy); Goal parameter MAP greater than 65 mmHg. Route: IV; Rate: calculated rate; Site: left antecubital; 20:12 Drug: levofloxacin IVPB 750 mg 150 ml IVPB once over 90 mins Volume: 150 ml; Route: vc1 IVPB; Infused Over: 90 mins; Site: right jugular; 21:45 Follow up: Response: No adverse reaction; IV Status: Completed infusion; IV Intake: km8 150ml 21:45 Drug: Ondansetron IVP 4 mg IVP once; over 2 minutes Route: IVP; Site: right jugular; vc1 23:22 Follow up: Response: No adverse reaction; Nausea is decreased km8 22:07 Drug: Solu-CORTEF IVP 100 mg IVP once Route: IVP; Site: right jugular; vc1 23:22 Follow up: Response: No adverse reaction km8 01/05 02:45 Drug: Ativan IVP 1 mg IVP once Route: IVP; Site: left antecubital; 1 03:04 Not Given (Physician Discretion): lorazepam1 mg PO once 1 Medication: 01/01 16:20 VIS not applicable for this client. ph Intake: 21:45 IV: 150ml; Total: 150ml. km8 Output: 23:15 Urine: 400ml (Voided); Total: 400ml. km8 Outcome: 18:33 ER care complete, transfer ordered by MD. ms3 21:17 Decision to Hospitalize by Provider. kb 21:30 Admitted to ICU Other Pt in ER as ICU hold vc1 21:30 Condition: good 21:30 Instructed on the need for admit, [facility] 01/05 14:47 Patient left the ED. iw Signatures: Dispatcher [employer] EDMS Promise Chahal, DEPUTY SHERIFF BUILDING GUARD-C DEPUTY SHERIFF BUILDING GUARD-Ckb Buffy Weiss, RN RAMON iw Harshad Masterson em1 Daiana Cesar RN RN ph Peltier, Brian RN Reed Harmon DO DO ms3 Adri Sauer RN RAMON vc1 Traci Chacon RN RN ha1 Campbell, Kaitlyn RN RAMON [email or web address] Hannah Mcconnell RN Krys Sam [facility] Azul Lorenz RN RN km8 Corrections: (The following items were deleted from the chart) 01/01 21:10 21:05 Patients son has expressed that he does not want father transferred to [place] [id number] and would like to wait for [place] to have a bed open up. Provider notified, transfer canceled [facility]
--- NOTE | 2023-01-01 18:34 | EDPHYS ---
Physician Documentation [facility] Name: Jose Marcelino Age: 72 yrs Sex: Male : 1950 Arrival Date: 01/01/2023 Time: 16:06 Bed 5 Private MD: ED Physician Reed Hill HPI: 01/01 16:14 This 72 yrs old Male presents to ER via Unassigned with complaints of syncope. kb 16:14 Patient is a 72-year-old male who is brought in by EMS after having a syncopal episode kb at the skilled nursing. Patient states he got up from bed and into a wheelchair to go to the restroom and passed out while in the wheelchair. Patient did not fall to the ground and has no injuries. Son started compressions when patient passed out and it woke patient up. Patient states he feels very weak at this time. States he is short of breath but it is normal for him. Denies dizziness, chest pain. Historical: - Allergies: 16:17 Atrovent; kc6 16:17 Amoxicillin; kc6 16:17 Hydrochlorothiazide; kc6 16:17 limestone; kc6 - PMHx: 16:17 Chronic obstructive lung disease; diabetes mellitus; Hypertensive disorder; Atrial kc6 fibrillation; Asthma; - Immunization history:: Adult Immunizations unknown. - Social history:: Smoking status: unknown. ROS: 18:01 Constitutional: Negative for fever, and chills. Neck: Negative for injury, pain, and ms3 swelling, Cardiovascular: Negative for chest pain, and palpitations. 18:01 Respiratory: Positive for cough, 18:01 Neuro: Positive for syncope, 18:01 All other systems are negative, Exam: 18:01 Constitutional: This is a well developed, well nourished patient who is awake, alert, ms3 and in no acute distress. Head/Face: Normocephalic, atraumatic. Neck: Trachea midline, no cervical lymphadenopathy. Supple, full range of motion without nuchal rigidity, or vertebral point tenderness. No Meningismus. Chest/axilla: Normal chest wall appearance and motion. Nontender with no deformity. 18:01 Cardiovascular: Rate: normal, Rhythm: irregularly irregular, Pulses: no pulse deficits are appreciated, Heart sounds: normal, Vital Signs: 16:15 BP 78 / 40; Pulse 106; Resp 18 S; Pulse Ox 95% on R/A; Weight 65.77 kg (R); Height 5 kc6 ft. 8 in. (R); 16:30 BP 83 / 54; Pulse 82; Resp 16; Pulse Ox 99% ; ph 16:45 BP 71 / 38; Pulse 110; Resp 18; Pulse Ox 100% on 3 lpm NC; ph 17:05 BP 82 / 32; Pulse 87; ph 17:15 BP 89 / 46; Pulse 69; Resp 18; Pulse Ox 100% on 3 lpm NC; ph 17:30 BP 108 / 35; Pulse 72; Resp 18; Pulse Ox 100% on 3 lpm NC; ph 17:45 BP 109 / 37; Pulse 74; Resp 18; Pulse Ox 100% on 3 lpm NC; ph 18:00 BP 68 / 54; Pulse 73; Resp 18; Pulse Ox 100% on 3 lpm NC; ph 18:15 BP 88 / 38; Pulse 73; Resp 16; Pulse Ox 100% on 3 lpm NC; ph 18:30 BP 114 / 39; Pulse 75; Resp 20; Pulse Ox 99% on 3 lpm NC; ph 18:57 BP 114 / 35; Pulse 80; Resp 20; Pulse Ox 99% on 3 lpm NC; ph 19:00 BP 119 / 48; Pulse 77; Resp 18; Pulse Ox 99% ; vc1 19:20 BP 120 / 39; Pulse 81; Resp 15; Pulse Ox 98% ; vc1 20:30 Temp 97.1; rv1 21:15 BP 86 / 42; Pulse 77; Resp 16; Pulse Ox 92% on R/A; vc1 21:30 BP 104 / 48; Pulse 78; Resp 15; Pulse Ox 98% on 2 lpm NC; vc1 01/05 02:45 BP 153 / 42; Pulse 71; Resp 18 S; Pulse Ox 100% on 2 lpm NC; ha1 01/01 16:15 Body Mass Index 22.05 (65.77 kg, 172.72 cm) [facility] Procedures: 01/01 18:00 Central Line: the site was prepped with in sterile fashion, a triple lumen catheter was ms3 inserted, in the right internal jugular vein, in 1 attempts. placement was verified, by CXR, by blood return, the site was dressed with Tegaderm, using sterile technique, the patient tolerated the procedure, well. MDM: 16:09 Patient medically screened. kb 17:38 Data reviewed: vital signs, nurses notes. ED course: sepsis reevaluation complete. kb Levophed started, central line being placed by Dr Hill. Pt received a total of 3L of NS (1 from EMS, 2 here) which satisfies 30ml/kg sepsis bolus. 18:49 Differential Diagnosis: cardiac arrhythmia, idiopathic syncope, sepsis, vasovagal kb episode. Consideration of Admission/Observation Escalation of care including admission/observation considered. pt will be transferred due to lack of ICU capacity . Historians other than the Patient: EMS: [facility]. Counseling: I had a detailed discussion with the patient and/or guardian regarding the historical points, exam findings, and any diagnostic results supporting the discharge/admit diagnosis, lab results, radiology results, the need to transfer to another facility, for higher level of care. 18:52 ED course: sepsis reevaluation complete. kb 21:06 ED course: Transfer was initiated to [facility], denied due to capacity. Son narendra requested transfer to [facility], initiated and denied due to capacity. Spoke to son and he requests pt be kept at [facility] because he lives nearby and can be here quickly if anything happens. . 21:15 Management of patient was discussed with the following: Hospitalist: Hospitalist team, narendra pt accepted for admission by MAYRA Larson and Dr Devine. 22:24 ED course: Son: Jakob . kb 01/02 00:04 ED course: Discussed CT results with Dr Devine, as well as perez placement and output of kb 2000ml. . 01/01 16:14 Order name: Basic Metabolic Panel; Complete Time: 17:15 kb 01/01 16:14 Order name: CBC with Diff; Complete Time: 17:49 kb 01/01 16:14 Order name: Hepatic Function; Complete Time: 17:15 kb 01/01 16:14 Order name: Magnesium; Complete Time: 17:15 kb 01/01 16:14 Order name: Protime (+inr); Complete Time: 17:13 kb 01/01 16:14 Order name: Ptt, Activated; Complete Time: 17:13 kb 01/01 16:14 Order name: Troponin High Sensitivity; Complete Time: 17:15 kb 01/01 16:14 Order name: Urinalysis w/ reflexes; Complete Time: 23:45 kb 01/01 17:26 Order name: Blood Culture Adult (2); Complete Time: 20:37 kb 01/01 17:26 Order name: Lactate w/ 2H reflex if indic.; Complete Time: 18:52 kb 01/01 17:30 Order name: CBC Smear Scan; Complete Time: 17:49 EDMS 01/01 17:49 Order name: Manual Differential; Complete Time: 17:49 EDMS 01/01 22:03 Order name: Lactate Sepsis 2 HR Follow-up; Complete Time: 22:09 EDMS 01/02 00:09 Order name: T4 Free; Complete Time: 06:02 EDMS 01/02 00:09 Order name: Thyroid Stimulating Hormone; Complete Time: 06:02 EDMS 01/02 00:09 Order name: Basic Metabolic Panel EDMS 01/02 00:09 Order name: Basic Metabolic Panel; Complete Time: 12:20 EDMS 01/02 00:09 Order name: Basic Metabolic Panel; Complete Time: 12:20 EDMS 01/02 00:09 Order name: Basic Metabolic Panel; Complete Time: 07:59 EDMS 01/02 00:09 Order name: CBC with Automated Diff EDMS 01/02 00:09 Order name: CBC with Automated Diff; Complete Time: 12:20 EDMS 01/02 00:09 Order name: CBC with Automated Diff; Complete Time: 12:20 EDMS 01/02 00:09 Order name: CBC with Automated Diff; Complete Time: 07:59 EDMS 01/02 00:09 Order name: Lipid Profile EDMS 01/02 00:09 Order name: Lipid Profile; Complete Time: 12:20 EDMS 01/02 00:09 Order name: Magnesium EDMS 01/02 00:09 Order name: Magnesium; Complete Time: 12:20 EDMS 01/02 00:09 Order name: Magnesium; Complete Time: 12:20 EDMS 01/02 00:09 Order name: Magnesium; Complete Time: 07:59 EDMS 01/02 00:09 Order name: Phosphorus EDMS 01/02 00:09 Order name: Phosphorus; Complete Time: 12:20 EDMS 01/02 00:09 Order name: Phosphorus; Complete Time: 12:20 EDMS 01/02 00:09 Order name: Phosphorus; Complete Time: 07:59 EDMS 01/02 00:09 Order name: Lactate w/ 2H reflex if indic. EDMS 01/02 00:09 Order name: Lactate w/ 2H reflex if indic.; Complete Time: 01:44 EDMS 01/02 00:09 Order name: Lactate w/ 2H reflex if indic.; Complete Time: 06:02 EDMS 01/02 00:10 Order name: ABG Arterial Blood Gas; Complete Time: 00:41 EDMS 01/02 08:11 Order name: Glucose, Ancillary Testing; Complete Time: 15:33 EDMS 01/02 12:21 Order name: Ptt, Activated ph 01/02 13:04 Order name: Lactate Sepsis 2 HR Follow-up; Complete Time: 15:33 EDMS 01/02 13:46 Order name: PTT, Activated Partial Thromb; Complete Time: 15:33 EDMS 01/02 17:20 Order name: Basic Metabolic Panel; Complete Time: 17:23 EDMS 01/02 19:21 Order name: Ptt, Activated ph 01/02 20:35 Order name: PTT, Activated Partial Thromb; Complete Time: 20:37 EDMS 01/02 21:49 Order name: Glucose, Ancillary Testing; Complete Time: 22:10 EDMS 01/03 01:57 Order name: PTT, Activated Partial Thromb; Complete Time: 12:20 EDMS 01/03 05:04 Order name: PTT, Activated Partial Thromb; Complete Time: 12:20 EDMS 01/03 07:45 Order name: Manual Differential; Complete Time: 12:20 EDMS 01/03 09:02 Order name: Glucose, Ancillary Testing; Complete Time: 12:20 EDMS 01/03 18:33 Order name: Glucose, Ancillary Testing; Complete Time: 12:20 EDMS 01/03 21:32 Order name: Glucose, Ancillary Testing; Complete Time: 12:20 EDMS 01/04 04:49 Order name: PTT, Activated Partial Thromb; Complete Time: 12:20 EDMS 01/04 07:32 Order name: Glucose, Ancillary Testing; Complete Time: 12:20 EDMS 01/04 13:07 Order name: Glucose, Ancillary Testing; Complete Time: 07:59 EDMS 01/04 16:40 Order name: Glucose, Ancillary Testing; Complete Time: 07:59 EDMS 01/04 22:14 Order name: Glucose, Ancillary Testing; Complete Time: 07:59 EDMS 01/05 08:38 Order name: Glucose, Ancillary Testing; Complete Time: 09:03 EDMS 01/01 16:14 Order name: Chest Single View XRAY; Complete Time: 17:25 kb 01/01 17:45 Order name: CXR XRAY; Complete Time: 18:32 sp3 01/01 21:41 Order name: CT Chest Abdomen Pelvis W/O Contrast; Complete Time: 23:09 kb 01/02 00:25 Order name: Echo with Doppler EDMS 01/02 00:25 Order name: Echo with Doppler EDMS 01/02 12:05 Order name: US; Complete Time: 15:33 EDMS 01/03 09:10 Order name: CT; Complete Time: 12:20 EDMS 01/04 07:39 Order name: US; Complete Time: 12:20 EDMS 01/01 16:14 Order name: EKG; Complete Time: 16:15 kb 01/01 16:14 Order name: Cardiac monitoring; Complete Time: 16:20 kb 01/01 16:14 Order name: EKG - Nurse/Tech; Complete Time: 16:31 kb 01/01 16:14 Order name: IV Saline Lock; Complete Time: 16:20 kb 01/01 16:14 Order name: Labs collected and sent; Complete Time: 16:41 kb 01/01 16:14 Order name: NPO; Complete Time: 16:20 kb 01/01 16:14 Order name: O2 Per Protocol; Complete Time: 16:20 kb 01/01 16:14 Order name: O2 Sat Monitoring; Complete Time: 16:20 kb 01/01 23:11 Order name: Zeyad; Complete Time: 23:39 kb Administered Medications: 01/01 16:30 Drug: NS 0.9% IV 1000 ml IV at 1000 ml once Route: IV; Rate: 1000 ml; Site: right ph antecubital; 17:00 Follow up: Response: No adverse reaction; IV Status: Completed infusion ph 17:00 Drug: NS 0.9% IV 1000 ml IV at 1000 ml once Route: IV; Rate: 1000 ml; Site: right ph antecubital; 17:30 Follow up: Response: No adverse reaction; IV Status: Completed infusion ph 17:20 Drug: Norepinephrine IV 0.1 mcg/kg/min IV at calculated rate See Administration ph Instructions; (Standard concentration 4 mg / 250 mL D5W); Recommended max rate 3 mcg/kg/min; Titrate 0.05 mcg/kg/min as often as every 5 minutes to achieve goal (see titration policy); Goal parameter MAP greater than 65 mmHg. Route: IV; Rate: calculated rate; Site: left antecubital; 20:12 Drug: levofloxacin IVPB 750 mg 150 ml IVPB once over 90 mins Volume: 150 ml; Route: vc1 IVPB; Infused Over: 90 mins; Site: right jugular; 21:45 Follow up: Response: No adverse reaction; IV Status: Completed infusion; IV Intake: km8 150ml 21:45 Drug: Ondansetron IVP 4 mg IVP once; over 2 minutes Route: IVP; Site: right jugular; vc1 23:22 Follow up: Response: No adverse reaction; Nausea is decreased [facility] 22:07 Drug: Solu-CORTEF IVP 100 mg IVP once Route: IVP; Site: right jugular; vc1 23:22 Follow up: Response: No adverse reaction [facility] 01/05 02:45 Drug: Ativan IVP 1 mg IVP once Route: IVP; Site: left antecubital; ha1 03:04 Not Given (Physician Discretion): lorazepam1 mg PO once ha1 Disposition: 01/01 17:58 I reviewed the patient's care provided by Advanced Practice Provider \T\ agree w/ the ms3 diagnosis \T\ care plan. I personally saw the pt \T\ performed a substantive portion of the visit, incldng all aspects of the (History/Exam/Medical Decision Making). PA/STAPLER HAND's history reviewed, patient interviewed, and examined. HPI: 72-year-old male with past medical history of COPD, diabetes, hypertension, atrial fibrillation presents to the emergency department via [facility] status post syncopal episode. Patient was attempting to sit up in bed when he began to have shortness of breath and patient's son states patient became unresponsive. CPR was started. By the time help arrived patient was alert. My personal exam of patient reveals: On exam patient is alert, in no apparent distress, nontoxic-appearing. Heart rate is irregular and normal rate. Lungs with diffuse rhonchi. Abdomen nontender palpation bowel sounds present. Skin is dry. I agree with assessment and care plan and confirm the diagnosis (es) above. Disposition Summary: 01/01/23 21:17 Hospitalization Ordered Notes: Hospitalization Status: Inpatient Admission kb Provider: Kaina Devine Condition: Critical(01/01/23 21:17) kb Problem: new(01/01/23 21:17) kb Symptoms: are unchanged(01/01/23 21:17) kb Bed/Room Type: Standard kb Location: Telemetry/MedSurg (Inpatient)(01/05/23 13:06) bd Room Assignment: 223(01/05/23 13:06) bd Diagnosis - Severe sepsis with septic shock(01/01/23 21:17) kb - Acute kidney failure, unspecified(01/01/23 21:17) kb - Pneumonia, unspecified organism kb Forms: - Medication Reconciliation Form kb - SBAR form kb - Leadership Thank You Letter kb Critical care time excluding procedures: 18:00 Critical care time: Bedside Care: 40 minutes, Consultation: 10 minutes, Family ms3 Intervention: 10 minutes. Total time: 60 minutes Signatures: Dispatcher [employer] EDMS Promise Chahal, PHOTOGRAPH INSPECTOR-C PHOTOGRAPH INSPECTOR-Ckb Lilia Ariza Shawna sp Attema, Lee, PHOTOGRAPH INSPECTOR-C PHOTOGRAPH INSPECTOR-Cla1 Daiana Cesar, RN RN Hanna Saenz, RN RN Laci Gonzalez, RN RN ja1 Reed Hill DO DO ms3 Adri Sauer, RN RN vc1 Traci Chacon, RN RN ha1 Milka Harding, RN RN [email or web address] Stanley Aguirre MD MD sp4 Azul Lorenz RN [id number] Corrections: (The following items were deleted from the chart) 18:52 18:33 Dr ms3 kb 21:16 18:33 Other Acute Care Facility ms3 kb 21:16 18:33 Higher level of care ms3 kb 21:16 18:33 Stable ms3 kb 21:16 18:33 new ms3 kb 21:16 18:33 are unchanged ms3 kb 21:16 18:33 Pneumonia due to other specified infectious organisms ms3 kb 21:16 18:33 Hypotension, unspecified ms3 kb 21:16 18:52 Dr kb kb 21:16 18:52 Severe sepsis with septic shock kb kb 21:16 18:52 Acute kidney failure, unspecified kb kb 22:05 22:02 CT CHEST,ABD,PELVIS W/O ordered. EDMS EDMS 22:36 21:17 Intensive Care Unit kb 22:36 21:17 kb cg 01/03 11:29 01/01 22:36 [facility] ER HOLD cg sp 01/03 11:29 01/01 22:36 ERHOLD- cg sp 01/03 13:46 11:29 Intensive Care Unit sp ja1 13:46 11:29 6- sp ja1 01/05 13:06 01/03 13:46 [facility] ER HOLD ja1 bd 01/05 13:06 01/03 13:46 ERHOLD- ja1 bd
[2023-01-01] MEDS ORDERED: Levofloxacin 750mg IV 750 MG/150 ML BAG IV ONE (20:20)
[2023-01-01] MEDS ORDERED: ONDANSETRON 4 MG/2 ML VIAL ONE (21:49)
[2023-01-01] MEDS ORDERED: HYDROCORTISONE SUC 100 MG INJ ONE (22:18)
[2023-01-01] MEDS ORDERED: NA CHLORIDE 0.9% 500 ML IV ONE (22:49)
--- NOTE | 2023-01-01 22:59 | RAD REPORT ---
EXAM DESCRIPTION: CT - Chest Abd Pelvis Wo Con - 01/01/2023 10:19 pm CLINICAL HISTORY: Shortness of breath and sepsis COMPARISON: December 21, 2022 CT chest TECHNIQUE: Computed axial tomography of the chest, abdomen and pelvis was obtained. Oral contrast wa s given. IV contrast was not requested. All CT scans are performed using dose optimization technique as appropriate and may include automated exposure control or mA/KV adjustment according to patient size. FINDINGS: The evaluation of mediastinum, casey, vessels and solid organs is limited secondary to the lack of IV contrast administration Sifr-cb-rmetculw tree-in-bud opacities right lower lobe have improved since the prior CT chest. The a dditional bilateral tree-in-bud opacities have mostly resolved. COPD Air trapping left anterior lung base 3.6 centimeter lobulated right infrahilar mass has mostly resolved No mediastinal or hilar lymphadenopathy is seen. A pleural effusion is not present. A pericardial effusion is not seen. Prominent central pulmonary arteries may indicate pulmonary arterial hypertension. Coronary arterial calcifications. The liver, spleen, pancreas, and adrenals appear grossly normal Moderate bilateral hydronephrosis and hydroureter is. Marked bladder distention. There is no evidence of diverticulitis. Cholelithiasis without evidence of cholecystitis Spondylosis lumbar spine resulting in spinal stenosis Small left inguinal hernia IMPRESSION: Bohh-af-thrpaakv tree-in-bud opacities right lower lobe have improved probably indicatin g an atypical infection 3.6 centimeter lobulated right infrahilar mass has mostly resolved which probably was infectious COPD Moderate bilateral hydronephrosis presumably related to the marked bladder distention Cholelithiasis without evidence of cholecystitis
[2023-01-01 23:38] LABS: Specific Gravity 1.013 (1.005-1.030); Urine Bacteria None Seen /HPF (<20); Urine Bilirubin NEGATIVE (Negative); Urine Blood Negative (Negative); Urine Clarity Turbid (Clear); Urine Color Light-Yellow (Yellow); Urine Glucose NEGATIVE (Negative); Urine Protein NEGATIVE (Negative); Urine Urobilinogen Normal (Normal); Urine pH 5.5 (5.0-7.0)
[2023-01-01] MEDS ORDERED: NOREPINEPHRINE 4 MG in D5W 250 ML IV SCH (23:45)
[2023-01-01] MEDS ORDERED: NA CHLORIDE 0.9% 1,000 ML IV SCH (23:45)
[2023-01-01] MEDS ORDERED: ACETAMINOPHEN 500 MG TAB PO PRN (23:59)
[2023-01-01] MEDS ORDERED: ALBUTEROL 2.5 MG/3 ML NEB SOL NEB PRN (23:59)
[2023-01-01] MEDS ORDERED: MAGNESIUM HYDROXIDE 8% 30 ML PO PRN (23:59)
[2023-01-02] MEDS ORDERED: IPRATROPIUM BROM 0.5MG/2.5ML NEB SCH
[2023-01-02] MEDS ORDERED: VANCOMYCIN 1 GM in NA CHLORIDE 0.9% 250 ML IVPB SCH ×2 (00:16→10:39)
[2023-01-02] MEDS ORDERED: MORPHINE 2 MG/ML SYR IV PRN (00:17)
--- NOTE | 2023-01-02 00:31 | P.HP ---
Certification for Inpatient With expected LOS: <2 Midnights <Neo Storey - Last Filed: 01/02/23 01:08> Patient History Date of Service: 01/02/23 Reason for admission: Severe sepsis with septic shock, acute kidney failure, pneumonia History of Present Illness: is a 72-year-old male with a history of COPD, diabetes mellitus not insulin dependent, hypertension, atrial fibrillation, asthma present to emergency room via the unassigned with complaints of syncope. Patient reports he got up from the bed to the wheelchair to go to the restroom and passed out while in the wheelchair. Patient did not fall to the ground and has no injuries. Patient's son started cardiac compressions when the patient passed out and it woke the patient up. Patient reports that he feels very tired at this time states that he is short of breath with mild exertion. Patient denies chest pain or pressure. Patient denies abdominal pain, nausea, vomiting. Patient denies fever chills or weight loss. ED course Vital signs 78/40, pulse 106, respiration 18, pulse ox 95% on room air. A central line was placed to right internal jugular by the ED physician. Patient was started on Levophed infusion to maintain the blood pressure above 90 systolic after fluid resuscitation of 30 mill per KG sepsis bolus. Initial laboratory findings significant for leukocytosis WBC 23.6, renal impairment BUN 113, creatinine 2.09, GFR 33. Admitting the patient with a diagnosis of severe sepsis with septic shock, pneumonia, acute renal failure. - Past Medical/Surgical History Diabetic: Yes -: DM -: Asthma -: Arthritis -: COPD -: HTN -: HLD -: depresison -: Cyst removal from right side of neck Psychosocial/ Personal History: Patient lives at home with his son - Family History Mother -: Heart disease, Diabetes Sister -: Lung disease, Diabetes, Cancer Father -: Lung disease, Cancer - Social History Alcohol use: No CD- Drugs: No Caffeine use: No <Neo Storey - Last Filed: 01/02/23 01:08> Date of Service: 01/02/23 <Kiana Devine - Last Filed: 01/02/23 06:05> Allergies ipratropium [From Atrovent] Allergy (Verified 06/11/22 13:50) Shortness of breath limestone Allergy (Uncoded 12/27/21 19:24) Itching/Hives/Rash Home Medications: Simvastatin [Zocor*] 40 mg PO BEDTIME 05/13/13 Hydrocodone/Acetaminophen [[place] 5-325 Tablet] 1 each PO BIDP PRN 01/26/17 Triamterene/Hydrochlorothiazid [Triamterene-Hctz 37.5-25 mg Cp] 1 each PO DAILY 01/26/17 Albuterol Inhaler [Ventolin Inhaler*] 1 puff IN BID PRN 01/22/21 Fluticasone/Umeclidin/Vilanter [Trelegy Ellipta 100-62.5-25] 1 puff IN DAILY 01/22/21 Metformin HCl 1,000 tab PO BID 01/22/21 Lisinopril [Zestril] 2.5 mg PO DAILY 05/28/21 Pregabalin [Lyrica] 25 mg PO BID 05/28/21 Albuterol Neb [Proventil 0.083% Neb Soln] 2.5 mg NEB [id number] #60 amp 05/29/21 Ipratropium Neb [Atrovent*] 0.5 mg NEB [id number] #60 amp 05/29/21 Nicotine [Nicotine Patch] 1 each TD DAILY 10/22/21 Benzonatate [Tessalon Perle*] 200 mg PO TID PRN #30 cap 12/09/21 predniSONE [Prednisone*] 20 mg PO M,W,F 12/27/21 predniSONE [Deltasone*] 10 mg PO T,TH,S 06/11/22 Amiodarone HCl [Cordarone*] 200 mg PO BID #60 tab 06/17/22 Apixaban [Eliquis *] 2.5 mg PO BID #60 tab 06/17/22 Fluconazole 100 mg PO DAILY 3 Days #3 tab 06/17/22 buPROPion HCL [Bupropion Xl] 150 mg PO DAILY 12/22/22 Arformoterol Tartrate [Brovana] 15 mcg NEB BIDRESP #60 vial.neb 12/31/22 Furosemide [Lasix*] 40 mg PO DAILY #30 tab 12/31/22 Pregabalin [Lyrica*] 50 mg PO BID #60 cap 12/31/22 Roflumilast [Daliresp*] 500 mcg PO DAILY #30 12/31/22 Sertraline [Zoloft*] 100 mg PO DAILY #30 tab 12/31/22 Review of Systems 10-point ROS is otherwise unremarkable <Neo Storey - Last Filed: 01/02/23 01:08> Physical Examination - Physical Exam General: Alert, Oriented x3 HEENT: Atraumatic, Normocephalic, PERRLA Neck: Supple, 2+ carotid pulse no bruit Respiratory: Other (Bilateral rhonchi, SOB with mild exertion on oxygen 3 L nasal cannula) Cardiovascular: No edema, Irregular heart rate/rhythm Capillary refill: >2 Seconds Gastrointestinal: Normal bowel sounds, Non-distended Musculoskeletal: No clubbing, No swelling, No tenderness Integumentary: No rashes, No breakdown Neurological: Normal tone, Normal affect - Studies Laboratory Data (last 24 hrs) 01/01/23 01/01/23 01/01/23 16:40 16:40 16:40 WBC 23.60 H Hgb 10.0 L Hct 30.7 L Plt Count 391 PT 16.2 H INR 1.47 APTT 26.4 Sodium 128 L Potassium 4.0 BUN 113 H Creatinine 2.09 H Glucose 117 H Magnesium 2.4 Total Bilirubin 0.6 AST 12 L ALT 15 L Alkaline Phosphatase 85 <Neo Storey - Last Filed: 01/02/23 01:08> - Studies Laboratory Data (last 24 hrs) 01/01/23 01/01/23 01/01/23 16:40 16:40 16:40 WBC 23.60 H Hgb 10.0 L Hct 30.7 L Plt Count 391 PT 16.2 H INR 1.47 APTT 26.4 Sodium 128 L Potassium 4.0 BUN 113 H Creatinine 2.09 H Glucose 117 H Magnesium 2.4 Total Bilirubin 0.6 AST 12 L ALT 15 L Alkaline Phosphatase 85 <Kiana Devine - Last Filed: 01/02/23 06:05> Assessment and Plan - Problems (Diagnosis) (1) Severe sepsis with septic shock Current Visit: Yes Status: Acute (2) Acute kidney failure Current Visit: Yes Status: Acute (3) Afib Current Visit: Yes Status: Chronic Qualifiers: Atrial fibrillation type: unspecified chronic Qualified Code(s): I48.20 - Chronic atrial fibrillation, unspecified; I48.2 - Chronic atrial fibrillation (4) Hypotension Current Visit: Yes Status: Acute (5) Acute respiratory failure with hypoxia and hypercapnia Current Visit: No Status: Acute (6) Pneumonia Current Visit: No Status: Acute Qualifiers: Pneumonia type: due to unspecified organism Laterality: right (7) Congestive heart failure (CHF) Current Visit: No Status: Chronic Qualifiers: Heart failure chronicity: unspecified (8) T2DM (type 2 diabetes mellitus) Current Visit: No Status: Chronic Qualifiers: 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 He passed out while in the wheelchair in the nursing. Patient did not fall to the ground and has no injuries. Patient's son started cardiac compressions when the patient passed out and it woke the patient up. Patient is afebrile, tachycardic, tachypneic requiring oxygen. Patient is short of breath with mild exertion Vital signs 78/40, pulse 106, respiration 18, pulse ox 95% on room air. A central line was placed to right internal jugular by the ED physician. Patient was started on Levophed infusion to maintain the blood pressure above 90 systolic after fluid resuscitation of 30 mill per KG sepsis bolus. Initial laboratory findings significant for leukocytosis WBC 23.6, lactic acid 4.7. Chest x-ray shows right infrahilar opacity admitting the patient with a diagnosis of severe sepsis with septic shock, pneumonia the suspected source is lungs - Blood cultures drawn before antibiotics were given - Broad spectrum antibiotics started -Consulted professor of industrial technology Dr. Morataya -We will continue to monitor (2) Acute kidney failure Acute,enal impairment BUN 113, creatinine 2.09, GFR 33 CT scan shows bilateral hydro nephrosis moderate We will insert Jeffers catheter to prevent obstruction and keep accurate and in and out Nephrology consult Dr. Sousa (3) Afib Chronic rate controlled and anticoagulated with Eliquis Patient denies chest pain or palpitation We will continue the current management Acute on chronic urinary distress On oxygen, bronchodilators, antibiotics Pulmonology consult (7) Congestive heart failure (CHF) Chronic, last echo 12/22/2019 EF of 55% We will continue to monitor Low-sodium diet (8) Type Diabetes Mellitus Chronic, controlled on diet alone Sugar check before meals and at bedtime with a low-dose sliding scale of insulin We will check the A1c in the morning CODE STATUSfull code Dietdiabetic DVT prophylaxisEliquis Discharge Plan: Home Plan to discharge in: 48 Hours - Advance Directives Does patient have a Living Will: No Does patient have a Durable POA for Healthcare: Yes - Code Status/Comfort Care Code Status Assessed: Yes (Full code) Code Status: Full Code Physician Review: Patient Assessed, Agree with Above Assessment and Plan Critical Care: Yes Time Spent Managing Pts Care (In Minutes): 55 (Minutes) <Neo Storey - Last Filed: 01/02/23 01:08>
[2023-01-02 00:36] LABS: Arterial Blood Carboxyhemoglob 1.1 % (0-1.5); Blood Gas Oxyhemoglobin 93.6 % (94-97); Blood O2 Saturation 96.3 % (92-98.5)
[2023-01-02] MEDS ORDERED: D50W 25 GM/50 ML SYRINGE IV PRN (01:09)
[2023-01-02] MEDS ORDERED: GLUCAGON 1 MG/VIAL IM PRN (01:09)
[2023-01-02] MEDS ORDERED: NA CHLORIDE 0.9% 1,000 ML ONE (01:10)
[2023-01-02] MEDS ORDERED: D10W 125 ML IV PRN (01:15)
[2023-01-02] MEDS ORDERED: NOREPINEPHRINE BITARTRATE/D5W 4 MG/250 ML BAG IV ONE ×4 (02:24→16:19)
[2023-01-02] MEDS: ONDANSETRON 4 MG/2 ML VIAL IV PRN (03:02)
[2023-01-02] MEDS ORDERED: ONDANSETRON 4 MG/2 ML VIAL ONE ×3 (03:11→16:19)
[2023-01-02 05:28] LABS: Thyroid Stimulating Hormone 0.251 uIU/mL (0.358-3.740)
[2023-01-02] MEDS: INSULIN REGULAR (HUMAN) 100 UNIT/ML SQ SCH ×4 (07:30→21:00)
[2023-01-02] MEDS: ARFORMOTEROL TARTRATE 15 MCG/2 ML VIAL.NEB NEB SCH ×2 (07:41→20:00)
[2023-01-02] MEDS: IPRATROPIUM BROM 0.5MG/2.5ML NEB SCH ×2 (07:41→20:00)
[2023-01-02] MEDS ORDERED: ARFORMOTEROL TARTRATE 15 MCG/2 ML VIAL.NEB ONE (07:53)
[2023-01-02] MEDS ORDERED: IPRATROPIUM BROM 0.5MG/2.5ML ONE (07:53)
[2023-01-02] MEDS ORDERED: AZITHROMYCIN IV 500 MG in NA CHLORIDE 0.9% 250 ML IVPB SCH (09:00)
[2023-01-02] MEDS: CEFEPIME 1 GM in NA CHLORIDE 0.9% 100 ML IV SCH (09:00)
[2023-01-02] MEDS ORDERED: APIXABAN 2.5 MG TABLET PO SCH (09:00)
--- NOTE | 2023-01-02 10:41 | P.CNS ---
Chief Complaint: Severe sepsis with septic shock, acute kidney failure, pneumonia Allergies ipratropium [From Atrovent] Allergy (Verified 06/11/22 13:50) Shortness of breath limestone Allergy (Uncoded 12/27/21 19:24) Itching/Hives/Rash Home Medications: Simvastatin [Zocor*] 40 mg PO BEDTIME 05/13/13 Hydrocodone/Acetaminophen [[place] 5-325 Tablet] 1 each PO BIDP PRN 01/26/17 Triamterene/Hydrochlorothiazid [Triamterene-Hctz 37.5-25 mg Cp] 1 each PO DAILY 01/26/17 Albuterol Inhaler [Ventolin Inhaler*] 1 puff IN BID PRN 01/22/21 Fluticasone/Umeclidin/Vilanter [Trelegy Ellipta 100-62.5-25] 1 puff IN DAILY 01/22/21 Metformin HCl 1,000 tab PO BID 01/22/21 Lisinopril [Zestril] 2.5 mg PO DAILY 05/28/21 Pregabalin [Lyrica] 25 mg PO BID 05/28/21 Albuterol Neb [Proventil 0.083% Neb Soln] 2.5 mg NEB [id number] #60 amp 05/29/21 Ipratropium Neb [Atrovent*] 0.5 mg NEB [id number] #60 amp 05/29/21 Nicotine [Nicotine Patch] 1 each TD DAILY 10/22/21 Benzonatate [Tessalon Perle*] 200 mg PO TID PRN #30 cap 12/09/21 predniSONE [Prednisone*] 20 mg PO M,W,F 12/27/21 predniSONE [Deltasone*] 10 mg PO T,TH,S 06/11/22 Amiodarone HCl [Cordarone*] 200 mg PO BID #60 tab 06/17/22 Apixaban [Eliquis *] 2.5 mg PO BID #60 tab 06/17/22 Fluconazole 100 mg PO DAILY 3 Days #3 tab 06/17/22 buPROPion HCL [Bupropion Xl] 150 mg PO DAILY 12/22/22 Arformoterol Tartrate [Brovana] 15 mcg NEB BIDRESP #60 vial.neb 12/31/22 Furosemide [Lasix*] 40 mg PO DAILY #30 tab 12/31/22 Pregabalin [Lyrica*] 50 mg PO BID #60 cap 12/31/22 Roflumilast [Daliresp*] 500 mcg PO DAILY #30 12/31/22 Sertraline [Zoloft*] 100 mg PO DAILY #30 tab 12/31/22 - Past Medical/Surgical History Diabetic: Yes -: DM -: Asthma -: Arthritis -: COPD -: HTN -: HLD -: depresison -: Cyst removal from right side of neck Psychosocial/ Personal History: Patient lives at home with his son - Family History Mother Medical History: Heart disease, Diabetes Sister Medical History: Lung disease, Diabetes, Cancer Father Medical History: Lung disease, Cancer - Social History Smoking Status: Unknown if ever smoked Alcohol use: No CD- Drugs: No Caffeine use: No Place of Residence: [facility] Physical Examination Temp Pulse Resp BP Pulse Ox 83 17 110/44 L 96 01/02/23 06:45 01/02/23 06:45 01/02/23 06:45 01/02/23 06:45 Laboratory Data (last 24 hrs) 01/01/23 01/01/23 01/01/23 16:40 16:40 16:40 WBC 23.60 H Hgb 10.0 L Hct 30.7 L Plt Count 391 PT 16.2 H INR 1.47 APTT 26.4 Sodium 128 L Potassium 4.0 BUN 113 H Creatinine 2.09 H Glucose 117 H Magnesium 2.4 Total Bilirubin 0.6 AST 12 L ALT 15 L Alkaline Phosphatase 85
[2023-01-02] MEDS ORDERED: METHYLPREDNISOLONE 40 MG INJ IV SCH (10:42)
--- NOTE | 2023-01-02 10:43 | P.CNS ---
Date of Consult: 01/02/23 Reason for Consult: Cardiopulmonary arrest Chief Complaint: Cardiopulmonary arrest possible sepsis History of Present Illness: Patient is 72 years of age with a history of terminal COPD was recently discharged to rehab apparently got in a wheelchair about to go to the bathroom he passed out had a cardiac arrest and did CPR and was brought here to the hospital currently feels very weak short of breath patient was hypotensive on admission Allergies ipratropium [From Atrovent] Allergy (Verified 06/11/22 13:50) Shortness of breath limestone Allergy (Uncoded 12/27/21 19:24) Itching/Hives/Rash Home Medications: Simvastatin [Zocor*] 40 mg PO BEDTIME 05/13/13 Hydrocodone/Acetaminophen [[place] 5-325 Tablet] 1 each PO BIDP PRN 01/26/17 Triamterene/Hydrochlorothiazid [Triamterene-Hctz 37.5-25 mg Cp] 1 each PO DAILY 01/26/17 Albuterol Inhaler [Ventolin Inhaler*] 1 puff IN BID PRN 01/22/21 Fluticasone/Umeclidin/Vilanter [Trelegy Ellipta 100-62.5-25] 1 puff IN DAILY 01/22/21 Metformin HCl 1,000 tab PO BID 01/22/21 Lisinopril [Zestril] 2.5 mg PO DAILY 05/28/21 Pregabalin [Lyrica] 25 mg PO BID 05/28/21 Albuterol Neb [Proventil 0.083% Neb Soln] 2.5 mg NEB [id number] #60 amp 05/29/21 Ipratropium Neb [Atrovent*] 0.5 mg NEB [id number] #60 amp 05/29/21 Nicotine [Nicotine Patch] 1 each TD DAILY 10/22/21 Benzonatate [Tessalon Perle*] 200 mg PO TID PRN #30 cap 12/09/21 predniSONE [Prednisone*] 20 mg PO M,W,F 12/27/21 predniSONE [Deltasone*] 10 mg PO T,TH,S 06/11/22 Amiodarone HCl [Cordarone*] 200 mg PO BID #60 tab 06/17/22 Apixaban [Eliquis *] 2.5 mg PO BID #60 tab 06/17/22 Fluconazole 100 mg PO DAILY 3 Days #3 tab 06/17/22 buPROPion HCL [Bupropion Xl] 150 mg PO DAILY 12/22/22 Arformoterol Tartrate [Brovana] 15 mcg NEB BIDRESP #60 vial.neb 12/31/22 Furosemide [Lasix*] 40 mg PO DAILY #30 tab 12/31/22 Pregabalin [Lyrica*] 50 mg PO BID #60 cap 12/31/22 Roflumilast [Daliresp*] 500 mcg PO DAILY #30 12/31/22 Sertraline [Zoloft*] 100 mg PO DAILY #30 tab 12/31/22 - Past Medical/Surgical History Diabetic: Yes -: DM -: Asthma -: Arthritis -: COPD -: HTN -: HLD -: depresison -: Cyst removal from right side of neck Psychosocial/ Personal History: Patient lives at home with his son - Family History Mother Medical History: Heart disease, Diabetes Sister Medical History: Lung disease, Diabetes, Cancer Father Medical History: Lung disease, Cancer - Social History Smoking Status: Unknown if ever smoked Alcohol use: No CD- Drugs: No Caffeine use: No Place of Residence: [facility] Review of Systems Unremarkable General: Weakness Respiratory: Shortness of Breath Physical Examination Temp Pulse Resp BP Pulse Ox 83 17 110/44 L 96 01/02/23 06:45 01/02/23 06:45 01/02/23 06:45 01/02/23 06:45 General: Alert, In no apparent distress, Oriented x3 Neck: Supple Respiratory: Clear to auscultation bilaterally, Diminished Cardiovascular: No edema, Normal pulses, Regular rate/rhythm Gastrointestinal: Normal bowel sounds, Hypoactive, Non-distended Laboratory Data (last 24 hrs) 01/01/23 01/01/23 01/01/23 16:40 16:40 16:40 WBC 23.60 H Hgb 10.0 L Hct 30.7 L Plt Count 391 PT 16.2 H INR 1.47 APTT 26.4 Sodium 128 L Potassium 4.0 BUN 113 H Creatinine 2.09 H Glucose 117 H Magnesium 2.4 Total Bilirubin 0.6 AST 12 L ALT 15 L Alkaline Phosphatase 85 - Problems (1) Hypotension Current Visit: Yes Status: Acute Plan: Patient is 72 years of age debilitated by his COPD admitted with syncopal attack possible cardiac arrest for which she was revived currently he was in rehab and positives include elevated white count elevated lactic acid CT scan shows resolution of the right lower lobe mass no obvious pneumonia blood pressure oxygenation is stable renal function has worsened most likely all is prerenal urinalysis is negative start patient on IV fluids reinstitute steroid continue with cefepime add vancomycin he is at risk for hospital-acquired infection due to recent prolonged hospitalization other possibilities thromboembolism chemical cell changer to heparin for now hold Eliquis echocardiogram lower extremity Dopplers possible CT pulmonary angiogram Qualifiers: Hypotension type: unspecified hypotension type Qualified Code(s): I95.9 - Hypotension, unspecified
[2023-01-02] MEDS ORDERED: ALBUMIN HUMAN 25% 100 ML IV ONE (10:46)
[2023-01-02] MEDS ORDERED: HYDROCORTISONE SUC 100 MG INJ IV SCH (10:46)
[2023-01-02] MEDS ORDERED: NA CHLORIDE 0.9% 1,000 ML IV SCH (10:47)
[2023-01-02] MEDS ORDERED: HYDROCODONE/APAP 5/325 MG TAB ONE ×2 (10:52→16:19)
[2023-01-02] MEDS ORDERED: AZITHROMYCIN 500 MG INJ IVPB ONE (10:53)
[2023-01-02] MEDS ORDERED: CEFEPIME 1 GM/VIAL ONE (10:53)
[2023-01-02] MEDS ORDERED: NA CHLORIDE 0.9% 250 ML ONE (10:53)
[2023-01-02] MEDS ORDERED: APIXABAN 5 MG TABLET ONE (10:53)
[2023-01-02] MEDS ORDERED: NA CHLORIDE 0.9% 100 ML ONE (10:53)
[2023-01-02] MEDS ORDERED: VANCOMYCIN 1.5 GM in NA CHLORIDE 0.9% 500 ML IVPB ONE (11:00)
[2023-01-02] MEDS: HYDROCODONE/APAP 5/325 MG TAB PO PRN ×3 (11:00→23:56)
--- NOTE | 2023-01-02 12:05 | RAD REPORT ---
EXAM DESCRIPTION: US - Extrem Venous W Compress Gilson - 01/02/2023 11:58 am CLINICAL HISTORY: RO DVT Bilateral leg edema and swelling. COMPARISON: Extrem Venous W Compress Gilson dated 06/19/2022 TECHNIQUE: Real-time sonographic interrogation of the left and right lower extremity deep venous sys tems was performed. FINDINGS: Normal compressibility, flow augmentation, phasic flow and spontaneous flow is identified in both the left and right lower extremity deep venous systems. IMPRESSION: No sonographic evidence of left or right lower extremity deep venous thrombosis.
[2023-01-02] MEDS: NA CHLORIDE 0.9% 1,000 ML IV SCH (12:26)
[2023-01-02] MEDS ORDERED: METHYLPREDNISOLONE 40 MG INJ ONE (12:29)
[2023-01-02] MEDS ORDERED: HEPARIN/D5W 25,000 UNIT/500 ML BAG IV ONE (12:29)
[2023-01-02] MEDS: NYSTATIN 500,000 UNIT/5 ML UDC PO SCH ×2 (14:00→21:00)
--- NOTE | 2023-01-02 14:09 | P.CNS ---
Date of Consult: 01/02/23 Reason for Consult: PASTOR Requesting Physician: Neo Storey Chief Complaint: Cardiopulmonary arrest possible sepsis History of Present Illness: Pt is a 72-year-old male whose history is obtained largely through chart review. He has a history of severe COPD per Pulmonology, NIDDM, hypertension, unspecified atrial fibrillation who was recently admitted earlier in the mo for Afib with RVR and respiratory insufficiency and then sent to rehab in the setting of on going debility. Pt yesterday presented to the emergency room after syncopal episode, there are reports of cardiac compressions being performed although unclear if pt had true loss of pulse or arrest. On admission pt was hypotensive and placed on pressor support. Initial laboratory findings significant for leukocytosis WBC 23.6, renal impairment BUN 113, creatinine 2.09, GFR 33. Pt remains in the ER on hold for transfer to the ICU. He acknowledges some on going dyspnea but is not in any resp distress. Allergies ipratropium [From Atrovent] Allergy (Verified 06/11/22 13:50) Shortness of breath limestone Allergy (Uncoded 12/27/21 19:24) Itching/Hives/Rash Home Medications: Simvastatin [Zocor*] 40 mg PO BEDTIME 05/13/13 Hydrocodone/Acetaminophen [[place] 5-325 Tablet] 1 each PO BIDP PRN 01/26/17 Triamterene/Hydrochlorothiazid [Triamterene-Hctz 37.5-25 mg Cp] 1 each PO DAILY 01/26/17 Albuterol Inhaler [Ventolin Inhaler*] 1 puff IN BID PRN 01/22/21 Fluticasone/Umeclidin/Vilanter [Trelegy Ellipta 100-62.5-25] 1 puff IN DAILY 01/22/21 Metformin HCl 1,000 tab PO BID 01/22/21 Lisinopril [Zestril] 2.5 mg PO DAILY 05/28/21 Pregabalin [Lyrica] 25 mg PO BID 05/28/21 Albuterol Neb [Proventil 0.083% Neb Soln] 2.5 mg NEB [id number] #60 amp 05/29/21 Ipratropium Neb [Atrovent*] 0.5 mg NEB [id number] #60 amp 05/29/21 Nicotine [Nicotine Patch] 1 each TD DAILY 10/22/21 Benzonatate [Tessalon Perle*] 200 mg PO TID PRN #30 cap 12/09/21 predniSONE [Prednisone*] 20 mg PO M,W,F 12/27/21 predniSONE [Deltasone*] 10 mg PO T,TH,S 06/11/22 Amiodarone HCl [Cordarone*] 200 mg PO BID #60 tab 06/17/22 Apixaban [Eliquis *] 2.5 mg PO BID #60 tab 06/17/22 Fluconazole 100 mg PO DAILY 3 Days #3 tab 06/17/22 buPROPion HCL [Bupropion Xl] 150 mg PO DAILY 12/22/22 Arformoterol Tartrate [Brovana] 15 mcg NEB BIDRESP #60 vial.neb 12/31/22 Furosemide [Lasix*] 40 mg PO DAILY #30 tab 12/31/22 Pregabalin [Lyrica*] 50 mg PO BID #60 cap 12/31/22 Roflumilast [Daliresp*] 500 mcg PO DAILY #30 12/31/22 Sertraline [Zoloft*] 100 mg PO DAILY #30 tab 12/31/22 - Past Medical/Surgical History Diabetic: Yes -: DM -: Asthma -: Arthritis -: COPD -: HTN -: HLD -: depresison -: Cyst removal from right side of neck Psychosocial/ Personal History: Patient lives at home with his son - Family History Mother Medical History: Heart disease, Diabetes Sister Medical History: Lung disease, Diabetes, Cancer Father Medical History: Lung disease, Cancer - Social History Smoking Status: Unknown if ever smoked Alcohol use: No CD- Drugs: No Caffeine use: No Place of Residence: [facility] Review of Systems Limited General: Weakness, As per HPI Eyes: Unremarkable ENT: Unremarkable Respiratory: Shortness of Breath, As per HPI Cardiovascular: As per HPI Gastrointestinal: Unremarkable Genitourinary: Other (Pt reports a hx of distended bladder, urinary issues in the past), As per HPI Musculoskeletal: As per HPI Neurological: Weakness, As per HPI Physical Examination Temp Pulse Resp BP Pulse Ox 83 18 110/44 L 100 01/02/23 06:45 01/02/23 11:00 01/02/23 06:45 01/02/23 11:00 General: In no apparent distress, Other (Appears pale, chronically ill) HEENT: Atraumatic, Normocephalic, Other (LFNC) Neck: Supple, Other (Rt IJ CVC) Respiratory: Other (b/l air entry, reduced at bases) Cardiovascular: Other (Non tachy, irregular) Gastrointestinal: Soft and benign, Non-distended, No tenderness Musculoskeletal: No swelling, No tenderness Integumentary: No rashes Neurological: Normal speech, Normal tone, Other (No tremors) Laboratory Data (last 24 hrs) 01/01/23 01/01/23 01/01/23 16:40 16:40 16:40 WBC 23.60 H Hgb 10.0 L Hct 30.7 L Plt Count 391 PT 16.2 H INR 1.47 APTT 26.4 Sodium 128 L Potassium 4.0 BUN 113 H Creatinine 2.09 H Glucose 117 H Magnesium 2.4 Total Bilirubin 0.6 AST 12 L ALT 15 L Alkaline Phosphatase 85 Conclusions/Impression: A/P) 1. Stage II PASTOR in the setting of b/l hydro with urinary retention as per CT findings yesterday but likely also with pre-renal component given significant azotemia (BUN/Cr > 20:1) and recent diuretic use along with effects of hypotension, +/- other 2. Repeat labs pending, ordered STAT 3. Pt does not appear to have a perez present currently, pt states removed earlier. Unclear why given CT findings, no documentation found in chart notes. Will repeat renal u/s to assess for persistent hydro, TREVINO, other. Will request PVR, will (re)insert perez if retaining urine. 4. Hypotension in the setting of presumed sepsis, unspecified organism +/- other. BP better but remains on pressor support, recommend weaning Levophed as tolerated. 5. Cont isotonic IVF hydration but will lower rate 6. Non hypotonic, hypovolemia hyponatremia -f/u Na level on NS IVF. 7. Acute on chronic resp insufficiency -management per IM/pulm. 8. TTE earlier in the mo appeared to show Rt sided HF, dilated RA and TR. May have PAH, no reports of PE. No ascites or anasarca. Maintain SR as possible. Diu retics on hold and on IVF as mentioned above. Consult Cardiology for further eval and management Jaya Stubbs MD, FASN
[2023-01-02] MEDS: HEPARIN/D5W 25,000 UNIT/500 ML BAG IV SCH (14:30)
--- NOTE | 2023-01-02 14:41 | P.PN ---
Subjective Date of Service: 01/02/23 Chief Complaint: Cardiopulmonary arrest possible sepsis Subjective: No new changes, Improving Physical Examination - Vital Signs Blood Pressure: 110/44 Pulse: 83 Respirations: 18 Pulse Ox (%): 100 - Physical Exam General: Alert, Oriented x3 Neck: Supple Cardiovascular: Regular rate/rhythm, Normal S1 S2 Gastrointestinal: Soft and benign Musculoskeletal: No swelling Neurological: Normal speech, Normal strength at 5/5 x4 extr - Studies Laboratory Data (last 24 hrs) 01/01/23 01/01/23 01/01/23 16:40 16:40 16:40 WBC 23.60 H Hgb 10.0 L Hct 30.7 L Plt Count 391 PT 16.2 H INR 1.47 APTT 26.4 Sodium 128 L Potassium 4.0 BUN 113 H Creatinine 2.09 H Glucose 117 H Magnesium 2.4 Total Bilirubin 0.6 AST 12 L ALT 15 L Alkaline Phosphatase 85 Assessment And Plan - Plan Patient was admitted overnight for management of sepsis and was started on broad-spectrum antibiotic as needed vasopressor support. He recently was admitted for management of multiple issues which include atrial fibrillation pneumonia and suspected UTI but there were no abnormality on urine analysis. Presently has oral thrush and has been started on nystatin swish and swallow. Will monitor cultures for adjustment of antibiotic therapy. Will follow trend of kidney function as he has acute kidney injury. Nephrology was consulted. Critical care/mud boss was consulted for management of critical illness. Will continue to monitor symptomatology, cultures and adjust antibiotic as needed. Physician Review: Patient Assessed, Agree with Above Assessment and Plan
[2023-01-02] MEDS: NOREPINEPHRINE 4 MG in D5W 250 ML IV SCH (15:30)
[2023-01-02 17:19] LABS: Potassium 3.3 mEq/L (3.5-5.1)
[2023-01-03] MEDS ORDERED: HYDROCODONE/APAP 5/325 MG TAB ONE ×4 (00:09→21:58)
[2023-01-03] MEDS: HEPARIN/D5W 25,000 UNIT/500 ML BAG IV SCH ×3 (02:12→06:10)
[2023-01-03 04:47] LABS: Absolute Lymphocytes (CBC) 0.8 K/uL (0.7-4.9); Hematocrit 27.9 % (39.6-49.0); Lymphocytes % 5.2 % (15.3-44.8); MCV 86.4 fL (80-100); MPV 7.4 fL (7.6-11.3); Platelets 345 thou/uL (152-406); RBC Red Blood Cell Count 3.23 M/uL (4.33-5.43)
[2023-01-03] MEDS: NA CHLORIDE 0.9% 1,000 ML IV SCH ×2 (05:00→08:26)
[2023-01-03 05:07] LABS: Phosphorus 3.1 mg/dL (2.5-4.9); Potassium 3.3 mEq/L (3.5-5.1)
[2023-01-03] MEDS ORDERED: NA CHLORIDE 0.9% 1,000 ML ONE ×2 (05:19→16:15)
[2023-01-03] MEDS ORDERED: NOREPINEPHRINE BITARTRATE/D5W 4 MG/250 ML BAG IV ONE (05:19)
[2023-01-03] MEDS: NOREPINEPHRINE 4 MG in D5W 250 ML IV SCH (05:55)
--- NOTE | 2023-01-03 07:10 | P.PN ---
Subjective Date of Service: 01/03/23 (Hospitalist) Chief Complaint: Hypotension renal failure Subjective: Improving (Patient is doing much better he is more alert responsive weakness has improved) Review of Systems General: Weakness Respiratory: Shortness of Breath Physical Examination - Vital Signs Temperature: 98.0 F Blood Pressure: 127/36 Pulse: 81 Respirations: 18 Pulse Ox (%): 97 - Physical Exam General: Alert, Oriented x3 Respiratory: Expiratory wheezes Cardiovascular: No edema, Regular rate/rhythm, Normal S1 S2 Gastrointestinal: Normal bowel sounds, Soft and benign Assessment And Plan - Current Problems (Diagnosis) (1) Hypotension Current Visit: Yes Status: Acute Plan: Patient admitted with a syncopal attack his renal function is now normal white count is declining mild hyponatremia we will plan to do a CT pulmonary angiogram global director air and climate change to Lovenox blood cultures are so far negative probably all prerenal from the use of diuretics replace potassium CT of the abdomen and pelvis IMPRESSION: Vzbh-ac-vpdvltxl tree-in-bud opacities right lower lobe have improved probably indicating an atypical infection 3.6 centimeter lobulated right infrahilar mass has mostly resolved which probably was infectious COPD Moderate bilateral hydronephrosis presumably related to the marked bladder distention Cholelithiasis without evidence of cholecystitis No evidence of DVT physical therapy Qualifiers: Hypotension type: unspecified hypotension type Qualified Code(s): I95.9 - Hypotension, unspecified Physician Review: Patient Assessed, Agree with Above Assessment and Plan
[2023-01-03] MEDS: INSULIN REGULAR (HUMAN) 100 UNIT/ML SQ SCH ×4 (07:30→21:00)
[2023-01-03 07:44] LABS: Basophilic Stippling 1+; Blood Morphology Comment NOTED (NOT SEEN); Platelet Estimate ADEQ
[2023-01-03] MEDS ORDERED: ARFORMOTEROL TARTRATE 15 MCG/2 ML VIAL.NEB ONE ×2 (08:37→20:00)
[2023-01-03] MEDS ORDERED: NOREPINEPHRINE BITARTRATE/D5W 4 MG/250 ML BAG IV SCH (09:00)
[2023-01-03] MEDS: predniSONE 20 MG TAB PO SCH ×2 (09:00→21:00)
[2023-01-03] MEDS: NYSTATIN 500,000 UNIT/5 ML UDC PO SCH ×3 (09:00→21:00)
[2023-01-03] MEDS: CEFEPIME 1 GM in NA CHLORIDE 0.9% 100 ML IV SCH (09:00)
[2023-01-03] MEDS: ENOXAPARIN 80 MG/0.8 ML SQ SCH ×2 (09:00→21:00)
--- NOTE | 2023-01-03 09:10 | RAD REPORT ---
EXAM DESCRIPTION: CT - Chest For Pe Angio - 01/03/2023 8:31 am CLINICAL HISTORY: Dyspnea. Syncopal episode. RoPE COMPARISON: Chest Abd Pelvis Wo Con dated 01/01/2023; Chest For Pe Angio dated 12/21/2022; Thorax Wo Con dated 09/28/2022; Chest For Pe Angio dated 06/04/2022 TECHNIQUE: Thin axial CT images of the chest were obtained following administration of 100 mL Isovue 370 IV contrast. Multiplanar reconstructions, and maximum intensity projection reconstructions were generated and reviewed. Exam utilizes a protocol for optimal evaluation of pulmonary arterial tree. All CT scans are performed using dose optimization technique as appropriate and may include automated exposure control or mA/KV adjustment according to patient size. FINDINGS: No pulmonary emboli or other suspicious finding. Mildly prominent caliber of the main pulm onary artery. No acute or significant aorta findings. Emphysematous changes most severe in the left lower lobe with bulla formation anteriorly, stable. Mil dly progressive perifissural subsegmental left upper lobe atelectasis. Peripheral left lower lobe nod ules, including 2 adjacent nodules on axial image 104 largest measuring 7 millimeter stable. Reticula r opacities in the right lower lobe caudal most pronounced dependently and at the base, with minimal bronchiectasis, stable. No pleural thickening or pleural effusion. No pneumothorax. No abnormal mediastinal or hilar masses or lymphadenopathy seen. No chest wall mass or abnormal axill iary lymphadenopathy. IMPRESSION: No evidence of acute central pulmonary emboli. Mildly prominent caliber of the main pulmonary artery, may reflect ongoing pulmonary hypertension. Pl ease correlate clinically. Stable findings including reticular opacities in the right lower lobe, with background up to advanced emphysematous changes. Unresolved atypical pneumonia should be considered.
[2023-01-03] MEDS: IPRATROPIUM BROM 0.5MG/2.5ML NEB SCH ×2 (09:11→19:40)
[2023-01-03] MEDS: ARFORMOTEROL TARTRATE 15 MCG/2 ML VIAL.NEB NEB SCH ×2 (09:11→19:40)
[2023-01-03] MEDS ORDERED: CEFEPIME 1 GM/VIAL ONE (10:42)
[2023-01-03] MEDS ORDERED: NA CHLORIDE 0.9% 100 ML ONE (10:42)
[2023-01-03] MEDS ORDERED: ENOXAPARIN 80 MG/0.8 ML SQ ONE ×2 (10:42→21:32)
[2023-01-03] MEDS: HYDROCODONE/APAP 5/325 MG TAB PO PRN ×3 (10:48→21:52)
[2023-01-03] MEDS ORDERED: predniSONE 20 MG TAB ONE ×2 (10:48→21:32)
[2023-01-03] MEDS ORDERED: NA CHLORIDE 0.9% 1,000 ML IV SCH (14:05)
[2023-01-03] MEDS ORDERED: IPRATROPIUM BROM 0.5MG/2.5ML ONE (20:00)
[2023-01-03] MEDS: VANCOMYCIN 1.25 GM in NA CHLORIDE 0.9% 250 ML IVPB SCH ×2 (23:00→23:55)
[2023-01-04] MEDS ORDERED: NA CHLORIDE 0.9% 250 ML ONE (00:48)
[2023-01-04] MEDS ORDERED: VANCOMYCIN 500 MG/VIAL ONE (00:48)
[2023-01-04] MEDS ORDERED: VANCOMYCIN 1 GM/VIAL ONE (00:48)
[2023-01-04] MEDS: POTASSIUM 25 MEQ EFFERV TAB PO SCH ×3 (01:49→21:00)
[2023-01-04] MEDS ORDERED: POTASSIUM 25 MEQ EFFERV TAB PO ONE (01:49)
[2023-01-04] MEDS: NICOTINE 21 MG/PAT TD SCH ×2 (03:00→18:02)
[2023-01-04] MEDS ORDERED: NICOTINE 21 MG/PAT TD ONE ×2 (04:21→18:13)
[2023-01-04] MEDS ORDERED: HYDROCODONE/APAP 5/325 MG TAB ONE ×3 (04:22→22:00)
[2023-01-04] MEDS ORDERED: POTASSIUM 25 MEQ EFFERV TAB ONE ×2 (04:22→09:10)
[2023-01-04] MEDS: HYDROCODONE/APAP 5/325 MG TAB PO PRN ×4 (04:27→22:07)
[2023-01-04 04:46] LABS: Absolute Lymphocytes (CBC) 0.5 K/uL (0.7-4.9); Lymphocytes % 4.4 % (15.3-44.8); MCV 87.9 fL (80-100); MPV 6.9 fL (7.6-11.3); Platelets 298 thou/uL (152-406); RBC Red Blood Cell Count 3.07 M/uL (4.33-5.43)
[2023-01-04 04:54] LABS: Magnesium 2.1 mg/dL (1.6-2.4); Phosphorus 2.5 mg/dL (2.5-4.9); Potassium 3.8 mEq/L (3.5-5.1)
[2023-01-04] MEDS: INSULIN REGULAR (HUMAN) 100 UNIT/ML SQ SCH ×4 (07:30→21:00)
--- NOTE | 2023-01-04 07:39 | RAD REPORT ---
EXAM DESCRIPTION: US - Renal Ultrasound-Complete - 01/04/2023 2:22 am CLINICAL HISTORY: Eval for on going hydronephrosis, bladder distenti COMPARISON: Renal Ultrasound-Complete dated 03/11/2020; Chest Abd Pelvis Wo Con dated 01/01/2023 FINDINGS: Both kidneys are normal in size, shape and echotexture. The right kidney measures 10.3 x 5.6 x 5.5 cm. Mild hydronephrosis. The left kidney measures 10.3 x 7.5 x 4.9 cm. Mild hydronephrosis. Marked urinary bladder distention with debris present. IMPRESSION: Marked urinary bladder distention containing debris with mild bilateral hydronephrosis. Finding suggests bladder outlet obstruction is present.
[2023-01-04] MEDS: ARFORMOTEROL TARTRATE 15 MCG/2 ML VIAL.NEB NEB SCH ×2 (08:48→20:36)
[2023-01-04] MEDS: IPRATROPIUM BROM 0.5MG/2.5ML NEB SCH ×2 (08:48→20:36)
[2023-01-04] MEDS: FLUCONAZOLE 100 MG TAB PO SCH (09:00)
[2023-01-04] MEDS: predniSONE 20 MG TAB PO SCH (09:00)
[2023-01-04] MEDS: NYSTATIN 500,000 UNIT/5 ML UDC PO SCH ×3 (09:00→21:00)
[2023-01-04] MEDS: CEFEPIME 1 GM in NA CHLORIDE 0.9% 100 ML IV SCH (09:00)
[2023-01-04] MEDS: APIXABAN 2.5 MG TABLET PO SCH ×2 (09:00→21:50)
[2023-01-04] MEDS ORDERED: ARFORMOTEROL TARTRATE 15 MCG/2 ML VIAL.NEB ONE ×2 (09:01→20:15)
[2023-01-04] MEDS ORDERED: IPRATROPIUM BROM 0.5MG/2.5ML ONE ×2 (09:01→20:15)
[2023-01-04] MEDS ORDERED: ENOXAPARIN 80 MG/0.8 ML SQ ONE (09:10)
[2023-01-04] MEDS ORDERED: NA CHLORIDE 0.9% 100 ML ONE (09:24)
[2023-01-04] MEDS ORDERED: predniSONE 20 MG TAB ONE (09:40)
[2023-01-04] MEDS ORDERED: CEFEPIME 1 GM/VIAL ONE (09:40)
--- NOTE | 2023-01-04 12:14 | P.PN ---
Subjective Date of Service: 01/04/23 Chief Complaint: Pneumonia Subjective: Improving (Patient is doing well still feeling very weak CT scan shows some changes in the left upper lobe probably pneumonia with underlying bulla) Review of Systems General: Weakness Respiratory: Cough, Shortness of Breath Physical Examination - Vital Signs Temperature: 97.8 F Blood Pressure: 139/56 Pulse: 77 Respirations: 15 Pulse Ox (%): 100 - Physical Exam General: Alert, In no apparent distress, Oriented x2 Respiratory: Clear to auscultation bilaterally, Diminished Cardiovascular: No edema, Regular rate/rhythm, Normal S1 S2 Assessment And Plan - Current Problems (Diagnosis) (1) COPD exacerbation Current Visit: No Status: Acute Plan: Patient is 72 years of age admitted with hypotension syncopal attack he is doing much better and is no evidence of pulmonary emboli he does have I suspect a left upper lobe atelectasis or pneumonia in case his white count has declined significantly since admission renal function is also now normal avoid diuretic blood cultures are negative can be changed to p.o. antibiotics physical therapy ambulate Labs reviewed can complaining of thrush add p.o. Diflucan changed to p.o. levofloxacin and doxepin Physician Review: Patient Assessed, Agree with Above Assessment and Plan
--- NOTE | 2023-01-04 12:26 | P.PN ---
Subjective Date of Service: 01/05/23 Chief Complaint: Pneumonia Review of Systems 10-point ROS is otherwise unremarkable Physical Examination - Vital Signs Temperature: 97.8 F Blood Pressure: 139/56 Pulse: 77 Respirations: 15 Pulse Ox (%): 100 - Physical Exam General: Alert, In no apparent distress, Oriented x2, Confused HEENT: Atraumatic, Normocephalic Neck: Supple, 2+ carotid pulse no bruit Respiratory: Normal air movement, Diminished Cardiovascular: No edema, Normal pulses Gastrointestinal: Normal bowel sounds, Soft and benign Musculoskeletal: Other (moderate generalized weakness) Assessment And Plan - Plan Assessment plan Sepsis with hypotension Acute hypoxic respiratory failure secondary to pneumonia Syncope Pulmonary Consult hypotension syncopal attack he is doing much better and is no evidence of pulmonary emboli left upper lobe atelectasis or pneumonia, white count has improved Blood cultures are negative changed to p.o. antibiotics PT consulted for weakness stage 3 ckd PASTOR like secondary diuretic use significantly since admission renal function is also now normal avoid diuretic Urinary retention with BL hydronephrosis trend kidney function Thrush p.o. Diflucan changed to p.o. levofloxacin and doxepin Anemia in chronic illness trend [facility] plan: return to [facility] at discharge Full code diet cardiac Discharge Plan: Assisted Plan to discharge in: 48 Hours - Code Status/Comfort Care Code Status: Full Code Physician Review: Patient Assessed, Agree with Above Assessment and Plan Critical Care: No Time Spent Managing PTS Care (In Minutes): 35
--- NOTE | 2023-01-04 16:54 | EKG ---
Test Date: 2023-01-01 Test Time: 16:24:03 System Specialist: DOMINIQUE MEASUREMENT RESULTS: Intervals: Rate: 97 TX: QRSD: 146 QT: 396 QTc: 502 [place]: P: TX: QRS: 52 T: 76 INTERPRETIVE STATEMENTS: Atrial fibrillation Right bundle branch block Abnormal ECG Compared to ECG 12/22/2022 10:02:56 Sinus rhythm no longer present Atrial premature complex(es) no longer present Electronically Signed On 01-04-23 16:52:18 JEWELRY FACER by Serafin James
[2023-01-04] MEDS: ALBUTEROL 2.5 MG/3 ML NEB SOL NEB PRN (18:06)
--- NOTE | 2023-01-04 20:59 | P.PN ---
Date of Service: 01/04/23 Vital Signs Temp Pulse Resp BP Pulse Ox 98.8 F 77 20 132/55 L 100 01/04/23 16:00 01/04/23 18:00 01/04/23 18:00 01/04/23 18:00 01/04/23 18:00 Medications Acetaminophen (Acetaminophen 500 Mg Tab) 500 mg PO Q4HP PRN PRN Reason: Pain scale 2-4 (Mild) Hydrocodone Bitart/Acetaminophen (Hydrocodone/Apap 5/325 Mg Tab) 1 tab PO Q4H PRN PRN Reason: Pain scale 5-7 (Moderate) Last Admin: 01/04/23 13:03 Dose: 1 tab Albuterol Sulfate (Albuterol 2.5 Mg/3 Ml Neb Irene) 2.5 mg NEB [id number] PRN PRN Reason: SHORTNESS OF BREATH Last Admin: 01/04/23 18:06 Dose: 2.5 mg Apixaban (Apixaban 2.5 Mg Tablet) 2.5 mg PO BID [facility] Last Admin: 01/04/23 09:00 Dose: 2.5 mg Arformoterol Tartrate (Arformoterol Tartrate 15 Mcg/2 Ml Vial.Neb) 15 mcg NEB BIDRESP MARK Last Admin: 01/04/23 20:36 Dose: 15 mcg Doxycycline Monohydrate (Doxycycline 100 Mg Cap) 100 mg PO BID MARK; Protocol Fluconazole (Fluconazole 100 Mg Tab) 200 mg PO DAILY MARK; Protocol Last Admin: 01/04/23 09:00 Dose: 200 mg Glucagon (Glucagon 1 Mg/Vial) 1 mg IM 1X PRN; Protocol PRN Reason: HYPOGLYCEMIA Dextrose (Dextrose 10% Water Iv Soln.) 125 mls @ 0 mls/hr IV .Q0M PRN PRN Reason: HYPOGLYCEMIA Insulin Human Regular (Insulin Regular (Human) 100 Unit/Ml) 0 unit SQ ACHS MARK; Protocol Last Admin: 01/04/23 16:30 Dose: Not Given Ipratropium D[place] (Ipratropium Brom 0.5mg/2.5ml) 0.5 mg NEB [id number] MARK Last Admin: 01/04/23 20:36 Dose: 0.5 mg Levofloxacin (Levofloxacin 750 Mg Tab) 750 mg PO DAILY MARK; Protocol Magnesium Hydroxide (Magnesium Hydroxide 8% 30 Ml) 30 ml PO DAILYPRN PRN PRN Reason: CONSTIPATION Nicotine (Nicotine 21 Mg/Pat) 21 mg TD DAILY [facility] Last Admin: 01/04/23 18:02 Dose: 21 mg Nystatin (Nystatin 500,000 Unit/5 Ml Udc) 500,000 unit PO TID [facility] Last Admin: 01/04/23 14:00 Dose: 500,000 unit Ondansetron HCl (Ondansetron 4 Mg/2 Ml Vial) 4 mg IV Q6HP PRN PRN Reason: NAUSEA / VOMITING Last Admin: 01/02/23 03:02 Dose: 4 mg Potassium Bicarbonate (Potassium 25 Meq Efferv Tab) 25 meq PO BID [facility] Last Admin: 01/04/23 09:00 Dose: 25 meq Prednisone (Prednisone 10 Mg Tab) 10 mg PO BID [facility] Microbiology Results 01/01/23 19:00 Blood - Blood Aerobic Blood Culture - Preliminary No growth in 24 hours. 01/01/23 19:00 Blood - Blood Anaerobic Blood Culture - Preliminary No growth in 24 hours. 01/01/23 18:00 Blood - Blood Aerobic Blood Culture - Preliminary No growth in 24 hours. 01/01/23 18:00 Blood - Blood Anaerobic Blood Culture - Preliminary No growth in 24 hours. Assessment/ Plan: Nephrology No dyspnea No chest pain Pain with swallowing Diffuse weakness No acute events overnight Vitals, medications, blood work and imaging reviewed in the chart. NAD. NCAT. MMM. Neck supple. Normal respiratory effort. RRR. Abd ND. No C/C. LE Edema none. No rash. AAO. Normal speech. EXAM DESCRIPTION: CT - Chest Abd Pelvis Wo Con - 01/01/2023 10:19 pm CLINICAL HISTORY: Shortness of breath and sepsis COMPARISON: December 21, 2022 CT chest TECHNIQUE: Computed axial tomography of the chest, abdomen and pelvis was obtained. Oral contrast was given. IV contrast was not requested. All CT scans are performed using dose optimization technique as appropriate and may include automated exposure control or mA/KV adjustment according to patient size. FINDINGS: The evaluation of mediastinum, casey, vessels and solid organs is limited secondary to the lack of IV contrast administration Mxwy-lf-tyfexwwo tree-in-bud opacities right lower lobe have improved since the prior CT chest. The additional bilateral tree-in-bud opacities have mostly resolved. COPD Air trapping left anterior lung base 3.6 centimeter lobulated right infrahilar mass has mostly resolved No mediastinal or hilar lymphadenopathy is seen. A pleural effusion is not present. A pericardial effusion is not seen. Prominent central pulmonary arteries may indicate pulmonary arterial hypertens ion. Coronary arterial calcifications. The liver, spleen, pancreas, and adrenals appear grossly normal Moderate bilateral hydronephrosis and hydroureter is. Marked bladder distention. There is no evidence of diverticulitis. Cholelithiasis without evidence of cholecystitis Spondylosis lumbar spine resulting in spinal stenosis Small left inguinal hernia IMPRESSION: Jhbx-fr-tsypjyme tree-in-bud opacities right lower lobe have improved probably indicating an atypical infection 3.6 centimeter lobulated right infrahilar mass has mostly resolved which probably was infectious COPD Moderate bilateral hydronephrosis presumably related to the marked bladder distention Cholelithiasis without evidence of cholecystitis Stage II PASTOR in the setting of hypotension & bladder outlet obstruction -No NSAIDs Hypokalemia -Replete as ordered HTN with CKD -Hold antihypertensives at this time DM II -RISS Anemia in chronic illness -Monitor H&H BPH with LUTS Urinary retention with BL hydronephrosis -Follow up renal ultrasound Case reviewed with hospitalist team
[2023-01-04] MEDS: DOXYCYCLINE 100 MG CAP PO SCH (21:50)
[2023-01-04] MEDS: predniSONE 10 MG TAB PO SCH (21:50)
[2023-01-04] MEDS ORDERED: predniSONE 10 MG TAB ONE (22:00)
[2023-01-04] MEDS ORDERED: DOXYCYCLINE 100 MG CAP PO ONE (22:01)
[2023-01-05 02:44] LABS: Absolute Lymphocytes (CBC) 0.9 K/uL (0.7-4.9); Hematocrit 28.8 % (39.6-49.0); Lymphocytes % 5.9 % (15.3-44.8); MCV 88.5 fL (80-100); Platelets 243 thou/uL (152-406); RBC Red Blood Cell Count 3.25 M/uL (4.33-5.43)
[2023-01-05] MEDS ORDERED: LORAZEPAM 1 MG TABLET ONE (03:02)
[2023-01-05 03:05] LABS: Magnesium 1.9 mg/dL (1.6-2.4); Potassium 4.3 mEq/L (3.5-5.1)
[2023-01-05 03:06] LABS: Phosphorus 1.5 mg/dL (2.5-4.9)
[2023-01-05] MEDS ORDERED: LORazepam 2 MG/ML VIAL ONE (03:07)
[2023-01-05] MEDS: INSULIN REGULAR (HUMAN) 100 UNIT/ML SQ SCH ×5 (07:30→20:58)
[2023-01-05] MEDS: ARFORMOTEROL TARTRATE 15 MCG/2 ML VIAL.NEB NEB SCH ×2 (08:30→19:07)
[2023-01-05] MEDS: IPRATROPIUM BROM 0.5MG/2.5ML NEB SCH ×2 (08:30→19:07)
[2023-01-05] MEDS ORDERED: ARFORMOTEROL TARTRATE 15 MCG/2 ML VIAL.NEB ONE (08:41)
[2023-01-05] MEDS: DOXYCYCLINE 100 MG CAP PO SCH ×2 (09:00→20:57)
[2023-01-05] MEDS: POTASSIUM 25 MEQ EFFERV TAB PO SCH ×2 (09:00→19:36)
[2023-01-05] MEDS: NYSTATIN 500,000 UNIT/5 ML UDC PO SCH ×3 (09:00→20:58)
[2023-01-05] MEDS: levoFLOXacin 750 MG TAB PO SCH (09:00)
[2023-01-05] MEDS: FLUCONAZOLE 100 MG TAB PO SCH (09:00)
[2023-01-05] MEDS: NICOTINE 21 MG/PAT TD SCH (09:00)
[2023-01-05] MEDS: APIXABAN 2.5 MG TABLET PO SCH ×2 (09:00→20:57)
[2023-01-05] MEDS: predniSONE 10 MG TAB PO SCH ×2 (09:00→20:58)
[2023-01-05] MEDS ORDERED: MAGNESIUM SULFATE 1 gm IVPB 1 GM/100 ML BAG IV ONE ×2 (09:15→09:27)
[2023-01-05] MEDS ORDERED: POTASSIUM 25 MEQ EFFERV TAB ONE (09:26)
[2023-01-05] MEDS ORDERED: NICOTINE 21 MG/PAT TD ONE (09:26)
[2023-01-05] MEDS ORDERED: DOXYCYCLINE 100 MG CAP PO ONE (09:26)
[2023-01-05] MEDS ORDERED: predniSONE 10 MG TAB ONE (09:26)
[2023-01-05] MEDS ORDERED: levoFLOXacin 250 MG TAB ONE (09:27)
[2023-01-05] MEDS: POTASS/SODIUM PHOSPHATE 1 PKT POWD.PACK PO SCH ×3 (10:23→12:30)
[2023-01-05] MEDS ORDERED: POTASS/SODIUM PHOSPHATE 1 PKT POWD.PACK ONE ×2 (10:28→12:02)
--- NOTE | 2023-01-05 15:43 | P.PN ---
Subjective Date of Service: 01/05/23 Chief Complaint: Pneumonia reports non productive cough, generalized weakness, oral thrush Review of Systems ROS perHPI Physical Examination - Vital Signs Temperature: 97.1 F Blood Pressure: 153/42 Pulse: 71 Respirations: 18 Pulse Ox (%): 24 - Physical Exam General: Alert, In no apparent distress, Oriented x3 HEENT: Atraumatic, Normocephalic, Other (oral thrush) Respiratory: Normal air movement, Rhonchi/gurgles Cardiovascular: Normal pulses, Regular rate/rhythm, Edema (LE ) Gastrointestinal: Normal bowel sounds, Soft and benign Musculoskeletal: Other (generaliezed weakness) Neurological: Normal speech, Normal tone Assessment And Plan - Plan Assessment plan Sepsis with hypotension Acute hypoxic respiratory failure secondary to pneumonia Syncope Pulmonary Consulted hypotension syncopal attack he is doing much better and is no evidence of pulmonary emboli left upper lobe atelectasis or pneumonia, white count has improved Blood cultures are negative changed to p.o. antibiotics PT consulted for weakness stage 3 ckd PASTOR like secondary diuretic use significantly since admission renal function is also now normal avoid diuretic Urinary retention with BL hydronephrosis trend kidney function Thrush p.o. Diflucan changed to p.o. levofloxacin and doxepin Anemia in chronic illness trend [place] plan: return to [facility] at discharge Full code diet cardiac Physician Review: Patient Assessed, Agree with Above Assessment and Plan Critical Care: No Time Spent Managing PTS Care (In Minutes): 35
[2023-01-05] MEDS: ALBUTEROL 2.5 MG/3 ML NEB SOL NEB PRN (19:07)
[2023-01-05] MEDS ORDERED: POTASS/SODIUM PHOSPHATE 1 PKT POWD.PACK PO ONE (20:30)
--- NOTE | 2023-01-05 20:31 | P.PN ---
Date of Service: 01/05/23 Vital Signs Temp Pulse Resp BP Pulse Ox 97.1 F 79 20 177/75 H 98 01/05/23 16:00 01/05/23 16:00 01/05/23 16:00 01/05/23 16:00 01/05/23 16:00 Medications Acetaminophen (Acetaminophen 500 Mg Tab) 500 mg PO Q4HP PRN PRN Reason: Pain scale 2-4 (Mild) Hydrocodone Bitart/Acetaminophen (Hydrocodone/Apap 5/325 Mg Tab) 1 tab PO Q4H PRN PRN Reason: Pain scale 5-7 (Moderate) Last Admin: 01/04/23 22:07 Dose: 1 tab Albuterol Sulfate (Albuterol 2.5 Mg/3 Ml Neb Irene) 2.5 mg NEB [id number] PRN PRN Reason: SHORTNESS OF BREATH Last Admin: 01/05/23 19:07 Dose: 2.5 mg Apixaban (Apixaban 2.5 Mg Tablet) 2.5 mg PO BID MARK Last Admin: 01/05/23 09:00 Dose: 2.5 mg Arformoterol Tartrate (Arformoterol Tartrate 15 Mcg/2 Ml Vial.Neb) 15 mcg NEB BIDRESP MARK Last Admin: 01/05/23 19:07 Dose: 15 mcg Doxycycline Monohydrate (Doxycycline 100 Mg Cap) 100 mg PO BID MARK; Protocol Last Admin: 01/05/23 09:00 Dose: 100 mg Fluconazole (Fluconazole 100 Mg Tab) 200 mg PO DAILY MARK; Protocol Last Admin: 01/05/23 09:00 Dose: 200 mg Glucagon (Glucagon 1 Mg/Vial) 1 mg IM 1X PRN; Protocol PRN Reason: HYPOGLYCEMIA Dextrose (Dextrose 10% Water Iv Soln.) 125 mls @ 0 mls/hr IV .Q0M PRN PRN Reason: HYPOGLYCEMIA Insulin Human Regular (Insulin Regular (Human) 100 Unit/Ml) 0 unit SQ ACHS MARK; Protocol Last Admin: 01/05/23 16:30 Dose: Not Given Ipratropium [place] (Ipratropium Brom 0.5mg/2.5ml) 0.5 mg NEB [id number] MARK Last Admin: 01/05/23 19:07 Dose: 0.5 mg Levofloxacin (Levofloxacin 750 Mg Tab) 750 mg PO DAILY MARK; Protocol Last Admin: 01/05/23 09:00 Dose: 750 mg Magnesium Hydroxide (Magnesium Hydroxide 8% 30 Ml) 30 ml PO DAILYPRN PRN PRN Reason: CONSTIPATION Nicotine (Nicotine 21 Mg/Pat) 21 mg TD DAILY [facility] Last Admin: 01/05/23 09:00 Dose: 21 mg Nystatin (Nystatin 500,000 Unit/5 Ml Udc) 500,000 unit PO TID [facility] Last Admin: 01/05/23 14:00 Dose: Not Given Ondansetron HCl (Ondansetron 4 Mg/2 Ml Vial) 4 mg IV Q6HP PRN PRN Reason: NAUSEA / VOMITING Last Admin: 01/02/23 03:02 Dose: 4 mg Potassium Bicarbonate (Potassium 25 Meq Efferv Tab) 25 meq PO BID [facility] Last Admin: 01/05/23 19:36 Dose: Not Given Prednisone (Prednisone 10 Mg Tab) 10 mg PO BID [facility] Last Admin: 01/05/23 09:00 Dose: 10 mg Tamsulosin HCl (Tamsulosin 0.4 Mg Sr Cap) 0.4 mg PO BID [facility] Microbiology Results 01/01/23 19:00 Blood - Blood Aerobic Blood Culture - Preliminary No growth in 24 hours. 01/01/23 19:00 Blood - Blood Anaerobic Blood Culture - Preliminary No growth in 24 hours. 01/01/23 18:00 Blood - Blood Aerobic Blood Culture - Preliminary No growth in 24 hours. 01/01/23 18:00 Blood - Blood Anaerobic Blood Culture - Preliminary No growth in 24 hours. Assessment/ Plan: Nephrology No dyspnea No chest pain Pain with swallowing Malaise No acute events overnight Vitals, medications, blood work and imaging reviewed in the chart. NAD. NCAT. MMM. Neck supple. Normal respiratory effort. RRR. Abd ND. No C/C. LE Edema none. No rash. AAO. Normal speech. EXAM DESCRIPTION: CT - Chest Abd Pelvis Wo Con - 01/01/2023 10:19 pm CLINICAL HISTORY: Shortness of breath and sepsis COMPARISON: December 21, 2022 CT chest TECHNIQUE: Computed axial tomography of the chest, abdomen and pelvis was obtained. Oral contrast was given. IV contrast was not requested. All CT scans are performed using dose optimization technique as appropriate and may include automated exposure control or mA/KV adjustment according to patient size. FINDINGS: The evaluation of mediastinum, casey, vessels and solid organs is limited secondary to the lack of IV contrast administration Guna-as-dukjzvrk tree-in-bud opacities right lower lobe have improved since the prior CT chest. The additional bilateral tree-in-bud opacities have mostly resolved. COPD Air trapping left anterior lung base 3.6 centimeter lobulated right infrahilar mass has mostly resolved No mediastinal or hilar lymphadenopathy is seen. A pleural effusion is not present. A pericardial effusion is not seen. Prominent central pulmonary arteries may indicate pulmonary arterial hypertension. Coronary arterial calcifications. The liver, spleen, pancreas, and adrenals appear grossly normal Moderate bilateral hydronephrosis and hydroureter is. Marked bladder distention. There is no evidence of diverticulitis. Cholelithiasis without evidence of cholecystitis Spondylosis lumbar spine resulting in spinal stenosis Small left inguinal hernia IMPRESSION: Mnqh-xw-idxikgzd tree-in-bud opacities right lower lobe have improved probably indicating an atypical infection 3.6 centimeter lobulated right infrahilar mass has mostly resolved which probably was infectious COPD Moderate bilateral hydronephrosis presumably related to the marked bladder distention Cholelithiasis without evidence of cholecystitis Stage II PASTOR in the setting of hypotension & bladder outlet obstruction -No NSAIDs -Renal US reviewed Hypokalemia -Replete prn Hypophosphatemia -Encourage nutrition -Replete PO4 HTN with CKD -Hold antihypertensives at this time DM II -RISS Anemia in chronic illness -Monitor H&H BPH with LUTS Urinary retention with BL hydronephrosis -Recommend perez insertion but the patient refused -Start Flomax BID Case reviewed with hospitalist team
[2023-01-05] MEDS: TAMSULOSIN 0.4 MG SR CAP PO SCH (20:57)
[2023-01-06] MEDS: ALBUTEROL 2.5 MG/3 ML NEB SOL NEB PRN (00:22)
[2023-01-06] MEDS: HYDROCODONE/APAP 5/325 MG TAB PO PRN ×2 (02:42→20:38)
--- NOTE | 2023-01-06 06:57 | P.PN ---
Subjective Date of Service: 01/06/23 Chief Complaint: Pneumonia reports chronic urinary retention, reports generalized weakness, oral thrush Review of Systems ROS PERHPI Physical Examination - Vital Signs Temperature: 97.9 F Blood Pressure: 149/74 Pulse: 81 Respirations: 18 Pulse Ox (%): 99 - Physical Exam General: Alert, In no apparent distress, Oriented x3 HEENT: Atraumatic, Normocephalic Neck: Supple, 2+ carotid pulse no bruit Respiratory: Normal air movement, Diminished Cardiovascular: Normal pulses, Regular rate/rhythm Capillary refill: <2 Seconds Gastrointestinal: Normal bowel sounds, Soft and benign Musculoskeletal: No clubbing, No swelling Neurological: Normal speech, Normal strength at 5/5 x4 extr, Other (generalized weakness) Assessment And Plan - Plan Assessment plan Sepsis with hypotension Acute hypoxic respiratory failure secondary to pneumonia Syncope Pulmonary Consulted- Leukocytois improved, on PO abx hypotension syncopal attack he is doing much better and is no evidence of pulmonary emboli left upper lobe atelectasis or pneumonia, white count has improved Blood cultures are negative changed to p.o. antibiotics CT FINDINGS: The evaluation of mediastinum, casey, vessels and solid organs is limited secondary to the lack of IV contrast administration Iknk-yt-bftriwwz tree-in-bud opacities right lower lobe have improved since the prior CT chest. The additional bilateral tree-in-bud opacities have mostly resolved.COPD Air trapping left anterior lung base 3.6 centimeter lobulated right infrahilar mass has mostly resolved No mediastinal or hilar lymphadenopathy is seen. A pleural effusion is not present. A pericardial effusion is not seen. Prominent central pulmonary arteries may indicate pulmonary arterial hypertension. Coronary arterial calcifications. The liver, spleen, pancreas, and adrenals appear grossly normal Moderate bilateral hydronephrosis and hydroureter is. Marked bladder distention. There is no evidence of diverticulitis. Cholelithiasis without evidence of cholecystitis Spondylosis lumbar spine resulting in spinal stenosis Small left inguinal hernia IMPRESSION: Enzq-ul-sknvomll tree-in-bud opacities right lower lobe have improved probably indicating an atypical infection 3.6 centimeter lobulated right infrahilar mass has mostly resolved which probably was infectious COPD Moderate bilateral hydronephrosis presumably related to the marked bladder distention Cholelithiasis without evidence of cholecystitis deconditioning PT consulted for weakness stage 3 ckd PASTOR like secondary diuretic use, bladder outlet obstruction chronic uinary retention Neph following, Jeffers to BSD per neph significantly since admission renal function is also now normal avoid diuretic Avoid NSAIDs US - Renal Ultrasound-Complete - 01/04/2023 2:22 am CLINICAL HISTORY: Eval for on going hydronephrosis, bladder distenti COMPARISON: Renal Ultrasound-Complete dated 03/11/2020; Chest Abd Pelvis Wo Con dated 01/01/2023 FINDINGS: Both kidneys are normal in size, shape and echotexture. The right kidney measures 10.3 x 5.6 x 5.5 cm. Mild hydronephrosis. The left kidney measures 10.3 x 7.5 x 4.9 cm. Mild hydronephrosis. Marked urinary bladder distention with debris present. IMPRESSION: Marked urinary bladder distention containing debris with mild bilateral hydronephrosis. Finding suggests bladder outlet obstruction is present. BPH with LUTS Urinary retention with BL hydronephrosis trend kidney function Jeffers ordered Hypokalemia trend electrolytes, replace prn Hypophosphatemia Encourage nutrition Replete PO4 Thrush p.o. Diflucan changed to p.o. levofloxacin and doxepin Anemia in chronic illness trend [facility] plan: return to [facility] at discharge Full code diet cardiac Discharge Plan: Fpc - Code Status/Comfort Care Code Status: Full Code Physician Review: Patient Assessed, Agree with Above Assessment and Plan Critical Care: No Time Spent Managing PTS Care (In Minutes): 35
[2023-01-06] MEDS: ARFORMOTEROL TARTRATE 15 MCG/2 ML VIAL.NEB NEB SCH ×2 (07:17→20:23)
[2023-01-06] MEDS: IPRATROPIUM BROM 0.5MG/2.5ML NEB SCH ×2 (07:17→20:23)
[2023-01-06] MEDS: INSULIN REGULAR (HUMAN) 100 UNIT/ML SQ SCH ×4 (07:30→20:39)
[2023-01-06 07:56] LABS: Absolute Lymphocytes (CBC) 1.9 K/uL (0.7-4.9); Hematocrit 27.7 % (39.6-49.0); Lymphocytes % 16.5 % (15.3-44.8); MCV 88.3 fL (80-100); MPV 6.6 fL (7.6-11.3); Platelets 255 thou/uL (152-406); RBC Red Blood Cell Count 3.14 M/uL (4.33-5.43)
[2023-01-06 08:13] LABS: Potassium 3.6 mEq/L (3.5-5.1)
[2023-01-06] MEDS: POTASSIUM 25 MEQ EFFERV TAB PO SCH ×2 (09:00→19:27)
[2023-01-06] MEDS: NICOTINE 21 MG/PAT TD SCH (10:02)
[2023-01-06] MEDS: TAMSULOSIN 0.4 MG SR CAP PO SCH ×2 (10:02→20:38)
[2023-01-06] MEDS: NYSTATIN 500,000 UNIT/5 ML UDC PO SCH ×3 (10:02→20:39)
[2023-01-06] MEDS: FLUCONAZOLE 100 MG TAB PO SCH (10:03)
[2023-01-06] MEDS: levoFLOXacin 750 MG TAB PO SCH (10:03)
[2023-01-06] MEDS: DOXYCYCLINE 100 MG CAP PO SCH ×2 (10:03→20:38)
[2023-01-06] MEDS: APIXABAN 2.5 MG TABLET PO SCH ×2 (10:03→20:38)
[2023-01-06] MEDS: predniSONE 10 MG TAB PO SCH ×2 (10:03→20:38)
--- NOTE | 2023-01-06 10:06 | P.PN ---
Date of Service: 01/06/23 Vital Signs Temp Pulse Resp BP Pulse Ox 98.5 F 82 24 H 137/65 100 01/06/23 08:00 01/06/23 08:00 01/06/23 08:00 01/06/23 08:00 01/06/23 08:00 Medications Acetaminophen (Acetaminophen 500 Mg Tab) 500 mg PO Q4HP PRN PRN Reason: Pain scale 2-4 (Mild) Hydrocodone Bitart/Acetaminophen (Hydrocodone/Apap 5/325 Mg Tab) 1 tab PO Q4H PRN PRN Reason: Pain scale 5-7 (Moderate) Last Admin: 01/06/23 02:42 Dose: 1 tab Albuterol Sulfate (Albuterol 2.5 Mg/3 Ml Neb Irene) 2.5 mg NEB [id number] PRN PRN Reason: SHORTNESS OF BREATH Last Admin: 01/06/23 00:22 Dose: 2.5 mg Apixaban (Apixaban 2.5 Mg Tablet) 2.5 mg PO BID MARK Last Admin: 01/05/23 20:57 Dose: 2.5 mg Arformoterol Tartrate (Arformoterol Tartrate 15 Mcg/2 Ml Vial.Neb) 15 mcg NEB BIDRESP MARK Last Admin: 01/06/23 07:17 Dose: 15 mcg Doxycycline Monohydrate (Doxycycline 100 Mg Cap) 100 mg PO BID MARK; Protocol Last Admin: 01/05/23 20:57 Dose: 100 mg Fluconazole (Fluconazole 100 Mg Tab) 200 mg PO DAILY MARK; Protocol Last Admin: 01/05/23 09:00 Dose: 200 mg Glucagon (Glucagon 1 Mg/Vial) 1 mg IM 1X PRN; Protocol PRN Reason: HYPOGLYCEMIA Dextrose (Dextrose 10% Water Iv Soln.) 125 mls @ 0 mls/hr IV .Q0M PRN PRN Reason: HYPOGLYCEMIA Insulin Human Regular (Insulin Regular (Human) 100 Unit/Ml) 0 unit SQ ACHS MARK; Protocol Last Admin: 01/05/23 20:58 Dose: Not Given Ipratropium [place] (Ipratropium Brom 0.5mg/2.5ml) 0.5 mg NEB [id number] MARK Last Admin: 01/06/23 07:17 Dose: 0.5 mg Levofloxacin (Levofloxacin 750 Mg Tab) 750 mg PO DAILY MARK; Protocol Last Admin: 01/05/23 09:00 Dose: 750 mg Magnesium Hydroxide (Magnesium Hydroxide 8% 30 Ml) 30 ml PO DAILYPRN PRN PRN Reason: CONSTIPATION Nicotine (Nicotine 21 Mg/Pat) 21 mg TD DAILY [facility] Last Admin: 01/05/23 09:00 Dose: 21 mg Nystatin (Nystatin 500,000 Unit/5 Ml Udc) 500,000 unit PO TID [facility] Last Admin: 01/05/23 20:58 Dose: 500,000 unit Ondansetron HCl (Ondansetron 4 Mg/2 Ml Vial) 4 mg IV Q6HP PRN PRN Reason: NAUSEA / VOMITING Last Admin: 01/02/23 03:02 Dose: 4 mg Potassium Bicarbonate (Potassium 25 Meq Efferv Tab) 25 meq PO BID [facility] Last Admin: 01/05/23 19:36 Dose: Not Given Prednisone (Prednisone 10 Mg Tab) 10 mg PO BID [facility] Last Admin: 01/05/23 20:58 Dose: 10 mg Tamsulosin HCl (Tamsulosin 0.4 Mg Sr Cap) 0.4 mg PO BID [facility] Last Admin: 01/05/23 20:57 Dose: 0.4 mg Microbiology Results 01/01/23 19:00 Blood - Blood Aerobic Blood Culture - Preliminary No growth in 24 hours. 01/01/23 19:00 Blood - Blood Anaerobic Blood Culture - Preliminary No growth in 24 hours. 01/01/23 18:00 Blood - Blood Aerobic Blood Culture - Preliminary No growth in 24 hours. 01/01/23 18:00 Blood - Blood Anaerobic Blood Culture - Preliminary No growth in 24 hours. Assessment/ Plan: Nephrology No dyspnea No chest pain Persistent pain with swallowing Malaise Reports urinary retention and states he is supposed to self cath at home No acute events overnight Vitals, medications, blood work and imaging reviewed in the chart. NAD. NCAT. MMM. Neck supple. Normal respiratory effort. RRR. Abd ND. No C/C. LE Edema none. No rash. AAO. Normal speech. EXAM DESCRIPTION: CT - Chest Abd Pelvis Wo Con - 01/01/2023 10:19 pm CLINICAL HISTORY: Shortness of breath and sepsis COMPARISON: December 21, 2022 CT chest TECHNIQUE: Computed axial tomography of the chest, abdomen and pelvis was obtained. Oral contrast was given. IV contrast was not requested. All CT scans are performed using dose optimization technique as appropriate and may include automated exposure control or mA/KV adjustment according to patient size. FINDINGS: The evaluation of mediastinum, casey, vessels and solid organs is limited secondary to the lack of IV contrast administration Zqad-hv-ybhlyzpd tree-in-bud opacities right lower lobe have improved since the prior CT chest. The additional bilateral tree-in-bud opacities have mostly resolved. COPD Air trapping left anterior lung base 3.6 centimeter lobulated right infrahilar mass has mostly resolved No mediastinal or hilar lymphadenopathy is seen. A pleural effusion is not present. A pericardial effusion is not seen. Prominent central pulmonary arteries may indicate pulmonary arterial hypertension. Coronary arterial calcifications. The liver, spleen, pancreas, and adrenals appear grossly normal Moderate bilateral hydronephrosis and hydroureter is. Marked bladder distention. There is no evidence of diverticulitis. Cholelithiasis without evidence of cholecystitis Spondylosis lumbar spine resulting in spinal stenosis Small left inguinal hernia IMPRESSION: Lpib-by-vzuydiwp tree-in-bud opacities right lower lobe have improved probably indicating an atypical infection 3.6 centimeter lobulated right infrahilar mass has mostly resolved which probably was infectious COPD Moderate bilateral hydronephrosis presumably related to the marked bladder distention Cholelithiasis without evidence of cholecystitis EXAM DESCRIPTION: US - Renal Ultrasound-Complete - 01/04/2023 2:22 am CLINICAL HISTORY: Eval for on going hydronephrosis, bladder distenti COMPARISON: Renal Ultrasound-Complete dated 03/11/2020; Chest Abd Pelvis Wo Con dated 01/01/2023 FINDINGS: Both kidneys are normal in size, shape and echotexture. The right kidney measures 10.3 x 5.6 x 5.5 cm. Mild hydronephrosis. The left kidney measures 10.3 x 7.5 x 4.9 cm. Mild hydronephrosis. Marked urinary bladder distention with debris present. IMPRESSION: Marked urinary bladder distention containing debris with mild bilateral hydronephrosis. Finding suggests bladder outlet obstruction is present. A/P Stage II PASTOR in the setting of hypotension & bladder outlet obstruction, resolved -No NSAIDs Hypokalemia -Replete prn Hypophosphatemia -Encourage nutrition HTN with CKD -Hold antihypertensives at this time DM II -RISS Anemia in chronic illness -Monitor H&H BPH with LUTS Urinary retention with BL hydronephrosis -Intermittent cath prn -Continue Flomax BID Case reviewed with hospitalist team including Dr. Devine
[2023-01-07] MEDS: HYDROCODONE/APAP 5/325 MG TAB PO PRN ×2 (01:40→21:22)
[2023-01-07] MEDS: ALBUTEROL 2.5 MG/3 ML NEB SOL NEB PRN ×2 (02:12→14:14)
[2023-01-07 03:16] LABS: Absolute Lymphocytes (CBC) 0.8 K/uL (0.7-4.9); Hematocrit 27.9 % (39.6-49.0); Lymphocytes % 6.8 % (15.3-44.8); MCV 88.7 fL (80-100); MPV 6.9 fL (7.6-11.3); Platelets 230 thou/uL (152-406); RBC Red Blood Cell Count 3.14 M/uL (4.33-5.43)
[2023-01-07 03:24] LABS: Magnesium 1.9 mg/dL (1.6-2.4); Phosphorus 2.3 mg/dL (2.5-4.9); Potassium 3.9 mEq/L (3.5-5.1)
[2023-01-07 05:22] LABS: Blood Morphology Comment NOT SEEN (NOT SEEN); Platelet Estimate ADEQ
[2023-01-07] MEDS: INSULIN REGULAR (HUMAN) 100 UNIT/ML SQ SCH ×4 (07:30→20:44)
[2023-01-07] MEDS: ARFORMOTEROL TARTRATE 15 MCG/2 ML VIAL.NEB NEB SCH ×2 (07:45→19:49)
[2023-01-07] MEDS: IPRATROPIUM BROM 0.5MG/2.5ML NEB SCH ×2 (07:46→19:49)
[2023-01-07] MEDS ORDERED: BENZONATATE 100 MG CAP PO PRN (08:17)
[2023-01-07] MEDS ORDERED: METOPROLOL TARTRATE 5 MG/5 ML INJ IV STA (08:46)
[2023-01-07] MEDS ORDERED: POTASSIUM PHOS IN 0.9 % NACL 15 MMOL/250 ML BAG IV ONE (09:00)
[2023-01-07] MEDS ORDERED: HOME MED 1 EA UNK (Pregabalin [Lyrica] 25 MG Capsule) PO SCH (09:00)
[2023-01-07] MEDS: Fluticasone/Umeclidin/Vilanter [Trelegy Ellipta 100-62.5-25] Blst.W.Dev IH SCH (09:00)
[2023-01-07] MEDS: POTASSIUM 25 MEQ EFFERV TAB PO SCH (09:00)
[2023-01-07] MEDS ORDERED: PREGABALIN 50 MG CAP PO SCH (09:00)
[2023-01-07] MEDS ORDERED: FUROSEMIDE 40 MG TABLET PO SCH (09:00)
[2023-01-07] MEDS ORDERED: MAXZIDE (HCTZ 25/TRIAMTERENE 37.5MG) TAB PO SCH (09:00)
[2023-01-07] MEDS ORDERED: lisinopriL 5 MG TAB PO SCH (09:00)
[2023-01-07] MEDS: levoFLOXacin 750 MG TAB PO SCH (10:28)
[2023-01-07] MEDS: NYSTATIN 500,000 UNIT/5 ML UDC PO SCH ×3 (10:28→20:43)
[2023-01-07] MEDS: NICOTINE 21 MG/PAT TD SCH (10:29)
[2023-01-07] MEDS: APIXABAN 2.5 MG TABLET PO SCH ×2 (10:29→20:44)
[2023-01-07] MEDS: TAMSULOSIN 0.4 MG SR CAP PO SCH ×2 (10:29→20:43)
[2023-01-07] MEDS: predniSONE 10 MG TAB PO SCH ×2 (10:31→20:44)
[2023-01-07] MEDS: ROFLUMILAST 500 MCG TABLET PO SCH (10:31)
[2023-01-07] MEDS: FLUCONAZOLE 100 MG TAB PO SCH (10:31)
[2023-01-07] MEDS: DOXYCYCLINE 100 MG CAP PO SCH ×2 (10:34→20:43)
[2023-01-07] MEDS: AMIODARONE HCL 200 MG TAB PO SCH ×2 (10:34→20:44)
[2023-01-07] MEDS: SERTRALINE HCL 100 MG TAB PO SCH (10:34)
--- NOTE | 2023-01-07 11:03 | P.PN ---
Date of Service: 01/07/23 Vital Signs Temp Pulse Resp BP Pulse Ox 98.0 F 83 24 H 156/72 H 94 01/07/23 08:00 01/07/23 10:33 01/07/23 08:00 01/07/23 10:33 01/07/23 08:00 Medications Acetaminophen (Acetaminophen 500 Mg Tab) 500 mg PO Q4HP PRN PRN Reason: Pain scale 2-4 (Mild) Hydrocodone Bitart/Acetaminophen (Hydrocodone/Apap 5/325 Mg Tab) 1 tab PO Q4H PRN PRN Reason: Pain scale 5-7 (Moderate) Last Admin: 01/07/23 01:40 Dose: 1 tab Albuterol Sulfate (Albuterol 2.5 Mg/3 Ml Neb Irene) 2.5 mg NEB [id number] PRN PRN Reason: SHORTNESS OF BREATH Last Admin: 01/07/23 02:12 Dose: 2.5 mg Amiodarone HCl (Amiodarone Hcl 200 Mg Tab) 200 mg PO BID [facility] Last Admin: 01/07/23 10:34 Dose: 200 mg Apixaban (Apixaban 2.5 Mg Tablet) 2.5 mg PO BID [facility] Last Admin: 01/07/23 10:29 Dose: 2.5 mg Arformoterol Tartrate (Arformoterol Tartrate 15 Mcg/2 Ml Vial.Neb) 15 mcg NEB BIDRESP [facility] Last Admin: 01/07/23 07:45 Dose: 15 mcg Atorvastatin Calcium (Atorvastatin 20 Mg Tab) 20 mg PO BEDTIME [facility] Benzonatate (Benzonatate 100 Mg Cap) 200 mg PO TID PRN PRN Reason: COUGH Doxycycline Monohydrate (Doxycycline 100 Mg Cap) 100 mg PO BID [facility]; Protocol Last Admin: 01/07/23 10:34 Dose: 100 mg Fluconazole (Fluconazole 100 Mg Tab) 200 mg PO DAILY [facility]; Protocol Last Admin: 01/07/23 10:31 Dose: 200 mg Furosemide (Furosemide 40 Mg Tablet) 40 mg PO DAILY [facility] Last Admin: 01/07/23 10:33 Dose: 40 mg Glucagon (Glucagon 1 Mg/Vial) 1 mg IM 1X PRN; Protocol PRN Reason: HYPOGLYCEMIA Home Med (Fluticasone/Umeclidin/Vilanter [Trelegy Ellipta 100-62.5-25]) 1 puff IH DAILY [facility] Last Admin: 01/07/23 09:00 Dose: Not Given Dextrose (Dextrose 10% Water Iv Soln.) 125 mls @ 0 mls/hr IV .Q0M PRN PRN Reason: HYPOGLYCEMIA Potassium Phosphate (Potassium Phos 15 Mmol/250 Ml Ns) 15 mmol in 250 mls @ 62.5 mls/hr IV 1X ONE; Protocol Stop: 01/07/23 12:59 Last Admin: 01/07/23 10:34 Dose: 250 mls Insulin Human Regular (Insulin Regular (Human) 100 Unit/Ml) 0 unit SQ ACHS [facility]; Protocol Last Admin: 01/07/23 07:30 Dose: Not Given Ipratropium [place] (Ipratropium Brom 0.5mg/2.5ml) 0.5 mg NEB [id number] [facility] Last Admin: 01/07/23 07:46 Dose: Not Given Levofloxacin (Levofloxacin 750 Mg Tab) 750 mg PO DAILY [facility]; Protocol Last Admin: 01/07/23 10:28 Dose: 750 mg Lisinopril (Lisinopril 5 Mg Tab) 2.5 mg PO DAILY [facility] Last Admin: 01/07/23 10:31 Dose: 2.5 mg Magnesium Hydroxide (Magnesium Hydroxide 8% 30 Ml) 30 ml PO DAILYPRN PRN PRN Reason: CONSTIPATION Nicotine (Nicotine 21 Mg/Pat) 21 mg TD DAILY [facility] Last Admin: 01/07/23 10:29 Dose: 21 mg Nystatin (Nystatin 500,000 Unit/5 Ml Udc) 500,000 unit PO TID [facility] Last Admin: 01/07/23 10:28 Dose: 500,000 unit Ondansetron HCl (Ondansetron 4 Mg/2 Ml Vial) 4 mg IV Q6HP PRN PRN Reason: NAUSEA / VOMITING Last Admin: 01/02/23 03:02 Dose: 4 mg Potassium Bicarbonate (Potassium 25 Meq Efferv Tab) 25 meq PO BID [facility] Last Admin: 01/07/23 09:00 Dose: Not Given Prednisone (Prednisone 10 Mg Tab) 10 mg PO BID [facility] Last Admin: 01/07/23 10:31 Dose: 10 mg Roflumilast (Roflumilast 500 Mcg Tablet) 500 mcg PO DAILY [facility] Last Admin: 01/07/23 10:31 Dose: 500 mcg Sertraline HCl (Sertraline Hcl 100 Mg Tab) 100 mg PO DAILY [facility] Last Admin: 01/07/23 10:34 Dose: 100 mg Tamsulosin HCl (Tamsulosin 0.4 Mg Sr Cap) 0.4 mg PO BID [facility] Last Admin: 01/07/23 10:29 Dose: 0.4 mg Triamterene/Hydrochlorothiazide (Maxzide (Hctz 25/Triamterene 37.5mg) Tab) 1 tab PO DAILY [facility] Last Admin: 01/07/23 10:31 Dose: 1 tab Microbiology Results 01/01/23 19:00 Blood - Blood Aerobic Blood Culture - Final No growth in 5 days. 01/01/23 19:00 Blood - Blood Anaerobic Blood Culture - Final No growth in 5 days. 01/01/23 18:00 Blood - Blood Aerobic Blood Culture - Final No growth in 5 days. 01/01/23 18:00 Blood - Blood Anaerobic Blood Culture - Final No growth in 5 days. Assessment/ Plan: Nephrology No dyspnea No chest pain Perez inserted yesterday due to urinary retention Mild difficulty with memory this morning No acute events overnight Vitals, medications, blood work and imaging reviewed in the chart. NAD. NCAT. MMM. Neck supple. Normal respiratory effort. RRR. Abd ND. No C/C. LE Edema none. No rash. AAO. Normal speech. EXAM DESCRIPTION: CT - Chest Abd Pelvis Wo Con - 01/01/2023 10:19 pm CLINICAL HISTORY: Shortness of breath and sepsis COMPARISON: December 21, 2022 CT chest TECHNIQUE: Computed axial tomography of the chest, abdomen and pelvis was obtained. Oral contrast was given. IV contrast was not requested. All CT scans are performed using dose optimization technique as appropriate and may include automated exposure control or mA/KV adjustment according to patient size. FINDINGS: The evaluation of mediastinum, casey, vessels and solid organs is limited secondary to the lack of IV contrast administration Fiad-os-pntyurmt tree-in-bud opacities right lower lobe have improved since the prior CT chest. The additional bilateral tree-in-bud opacities have mostly resolved. COPD Air trapping left anterior lung base 3.6 centimeter lobulated right infrahilar mass has mostly resolved No mediastinal or hilar lymphadenopathy is seen. A pleural effusion is not present. A pericardial effusion is not seen. Prominent central pulmonary arteries may indicate pulmonary arterial hypertension. Coronary arterial calcifications. The liver, spleen, pancreas, and adrenals appear grossly normal Moderate bilateral hydronephrosis and hydroureter is. Marked bladder distention. There is no evidence of diverticulitis. Cholelithiasis without evidence of cholecystitis Spondylosis lumbar spine resulting in spinal stenosis Small left inguinal hernia IMPRESSION: Axef-mq-cgcapupv tree-in-bud opacities right lower lobe have improved probably indicating an atypical infection 3.6 centimeter lobulated right infrahilar mass has mostly resolved which probably was infectious COPD Moderate bilateral hydronephrosis presumably related to the marked bladder distention Cholelithiasis without evidence of cholecystitis EXAM DESCRIPTION: US - Renal Ultrasound-Complete - 01/04/2023 2:22 am CLINICAL HISTORY: Eval for on going hydronephrosis, bladder distenti COMPARISON: Renal Ultrasound-Complete dated 03/11/2020; Chest Abd Pelvis Wo Con dated 01/01/2023 FINDINGS: Both kidneys are normal in size, shape and echotexture. The right kidney measures 10.3 x 5.6 x 5.5 cm. Mild hydronephrosis. The left kidney measures 10.3 x 7.5 x 4.9 cm. Mild hydronephrosis. Marked urinary bladder distention with debris present. IMPRESSION: Marked urinary bladder distention containing debris with mild bilateral hydronephrosis. Finding suggests bladder outlet obstruction is present. LEFT VENTRICULAR WALL MOTION: NORMAL DOPPLER/COLOR FLOW: COMMENTS: 1. SEVERELY DILATED RIGHT ATRIUM 2. MODERATELY DILATED RIGHT VENTRICLE. MODERATELY REDUCED FUNCTION 3. LEFT VENTRICULAR EJECTION FRACTION 55% 4. MODERATE TRICUSPID REGURGITATION A/P Stage II PASTOR in the setting of hypotension & bladder outlet obstruction, resolved -No NSAIDs Hypokalemia -Reduce potassium supplementation to once daily Hypophosphatemia -Encourage nutrition -Replete as ordered HTN with CKD/ CHF -Increase Lisinopril 10mg BID Right Heart Failure Moderate TR Pulmonary HTN? -Continue Lasix DM II -RISS Anemia in chronic illness -Monitor H&H BPH with LUTS Urinary retention with BL hydronephrosis -Continue perez -Continue Flomax BID -Will need urology follow up Case reviewed with hospitalist team
--- NOTE | 2023-01-07 14:15 | P.PN ---
Subjective Date of Service: 01/07/23 Chief Complaint: Pneumonia Subjective: No new changes, Improving reports generalized weakness, oral thrush, poor appetite [facility] Physical Examination - Vital Signs Temperature: 98.0 F Blood Pressure: 156/72 Pulse: 83 Respirations: 24 Pulse Ox (%): 94 - Physical Exam General: Alert, In no apparent distress, Oriented x3, Other (Generalized weakness) HEENT: Atraumatic, Normocephalic, PERRLA Neck: Supple, 2+ carotid pulse no bruit Respiratory: Normal air movement, Diminished Cardiovascular: No edema, Normal pulses Capillary refill: <2 Seconds Gastrointestinal: Normal bowel sounds, Soft and benign Musculoskeletal: No clubbing, No swelling Integumentary: No rashes, No breakdown Neurological: Normal speech, Normal tone Urinary: Jeffers catheter - Studies Microbiology Data (last 24 hrs): 01/01/23 19:00 Blood - Blood Aerobic Blood Culture - Final No growth in 5 days. 01/01/23 19:00 Blood - Blood Anaerobic Blood Culture - Final No growth in 5 days. 01/01/23 18:00 Blood - Blood Aerobic Blood Culture - Final No growth in 5 days. 01/01/23 18:00 Blood - Blood Anaerobic Blood Culture - Final No growth in 5 days. Assessment And Plan - Plan Assessment plan Sepsis with hypotension Acute hypoxic respiratory failure secondary to pneumonia Syncope Pulmonary Consulted- Leukocytois improved, on PO abx hypotension syncopal attack he is doing much better and is no evidence of pulmonary emboli left upper lobe atelectasis or pneumonia, white count has improved Blood cultures are negative changed to p.o. antibiotics CT FINDINGS: The evaluation of mediastinum, casey, vessels and solid organs is limited secondary to the lack of IV contrast administration Ivgc-kk-otvcbwuv tree-in-bud opacities right lower lobe have improved since the prior CT chest. The additional bilateral tree-in-bud opacities have mostly resolved.COPD Air trapping left anterior lung base 3.6 centimeter lobulated right infrahilar mass has mostly resolved No mediastinal or hilar lymphadenopathy is seen. A pleural effusion is not present. A pericardial effusion is not seen. Prominent central pulmonary arteries may indicate pulmonary arterial hypertension. Coronary arterial calcifications. The liver, spleen, pancreas, and adrenals appear grossly normal Moderate bilateral hydronephrosis and hydroureter is. Marked bladder distention. There is no evidence of diverticulitis. Cholelithiasis without evidence of cholecystitis Spondylosis lumbar spine resulting in spinal stenosis Small left inguinal hernia IMPRESSION: Jmfl-vx-ltjgyjpa tree-in-bud opacities right lower lobe have improved probably indicating an atypical infection 3.6 centimeter lobulated right infrahilar mass has mostly resolved which probably was infectious COPD Moderate bilateral hydronephrosis presumably related to the marked bladder distention Cholelithiasis without evidence of cholecystitis deconditioning PT consulted for weakness stage 3 ckd PASTOR like secondary diuretic use, bladder outlet obstruction chronic uinary retention Neph following, Jeffers to BSD per neph significantly since admission renal function is also now normal avoid diuretic Avoid NSAIDs US - Renal Ultrasound-Complete - 01/04/2023 2:22 am CLINICAL HISTORY: Eval for on going hydronephrosis, bladder distenti COMPARISON: Renal Ultrasound-Complete dated 03/11/2020; Chest Abd Pelvis Wo Con dated 01/01/2023 FINDINGS: Both kidneys are normal in size, shape and echotexture. The right kidney measures 10.3 x 5.6 x 5.5 cm. Mild hydronephrosis. The left kidney measures 10.3 x 7.5 x 4.9 cm. Mild hydronephrosis. Marked urinary bladder distention with debris present. IMPRESSION: Marked urinary bladder distention containing debris with mild bilateral hydronephrosis. Finding suggests bladder outlet obstruction is present. BPH with LUTS Urinary retention with BL hydronephrosis trend kidney function Jeffers ordered Hypokalemia trend electrolytes, replace prn Hypophosphatemia Encourage nutrition Replete PO4 Thrush p.o. Diflucan changed to p.o. levofloxacin and doxepin Anemia in chronic illness trend DC plan: return to [facility] at discharge Full code diet cardiac Physician Review: Patient Assessed, Agree with Above Assessment and Plan
[2023-01-07] MEDS ORDERED: ARFORMOTEROL TARTRATE 15 MCG/2 ML VIAL.NEB NEB SCH (20:00)
[2023-01-07] MEDS: ATORVASTATIN 20 MG TAB PO SCH (20:43)
[2023-01-07] MEDS ORDERED: lisinopriL 10 MG TAB PO SCH ×2 (21:00→21:06)
[2023-01-08 00:30] VITALS: BMI 22.0
[2023-01-08 06:18] LABS: Absolute Lymphocytes (CBC) 1.5 K/uL (0.7-4.9); Hematocrit 29.8 % (39.6-49.0); Lymphocytes % 11.4 % (15.3-44.8); MCV 88.2 fL (80-100); MPV 6.8 fL (7.6-11.3); Platelets 235 thou/uL (152-406); RBC Red Blood Cell Count 3.39 M/uL (4.33-5.43)
[2023-01-08 07:00] LABS: Albumin 2.6 g/dL (3.4-5.0); Bilirubin Total 0.4 mg/dL (0.2-1.0); Magnesium 1.9 mg/dL (1.6-2.4); Phosphorus 3.2 mg/dL (2.5-4.9); Potassium 4.1 mEq/L (3.5-5.1); Protein, Total 5.7 g/dL (6.4-8.2)
[2023-01-08] MEDS: INSULIN REGULAR (HUMAN) 100 UNIT/ML SQ SCH ×4 (07:30→21:00)
--- NOTE | 2023-01-08 07:55 | RAD REPORT ---
EXAM DESCRIPTION: RAD - Chest Single View - 01/08/2023 4:55 am CLINICAL HISTORY: pneumonia COMPARISON: Chest Single View dated 01/01/2023; Chest Single View dated 01/01/2023; Chest Single Vie w dated 12/29/2022; Chest Single View dated 12/20/2022; Chest For Pe Angio dated 01/03/2023 FINDINGS: Lines: Right IJ approach central line with tip overlying the proximal SVC. Lungs: Increased left upper lobe atelectasis compared with the chest CT from 01/03/2023. Mild reticul onodular opacities in the mid right lung, primarily in the right lower lobe. Pleural: No significant pleural effusions or pneumothorax. Cardiac: The heart size is within normal limits. Mediastinum: Within normal limits. Bones: No acute fractures. Other: None IMPRESSION: Increased volume loss in left upper lobe likely reflecting atelectasis. Mild reticulonod ular opacities in the right lung similar to 01/03/2023. This could reflect mild infection or inflamma tion. No consolidative pneumonia or edema.
[2023-01-08] MEDS: ARFORMOTEROL TARTRATE 15 MCG/2 ML VIAL.NEB NEB SCH ×2 (08:23→20:00)
[2023-01-08] MEDS: IPRATROPIUM BROM 0.5MG/2.5ML NEB SCH ×2 (08:23→19:59)
--- NOTE | 2023-01-08 08:57 | P.PN ---
Subjective Date of Service: 01/08/23 Chief Complaint: Pneumonia reports generalized weakness, oral thrush, poor appetite Physical Examination - Vital Signs Temperature: 96.3 F Blood Pressure: 104/48 Pulse: 84 Respirations: 16 Pulse Ox (%): 98 Assessment And Plan - Plan Assessment plan Sepsis with hypotension Acute hypoxic respiratory failure secondary to pneumonia Syncope Pulmonary Consulted- Leukocytois improved, on PO abx hypotension syncopal attack he is doing much better and is no evidence of pulmonary emboli left upper lobe atelectasis or pneumonia, white count has improved Blood cultures are negative changed to p.o. antibiotics CT FINDINGS: The evaluation of mediastinum, casey, vessels and solid organs is limited secondary to the lack of IV contrast administration Bpgp-ae-djwfvtkq tree-in-bud opacities right lower lobe have improved since the prior CT chest. The additional bilateral tree-in-bud opacities have mostly resolved.COPD Air trapping left anterior lung base 3.6 centimeter lobulated right infrahilar mass has mostly resolved No mediastinal or hilar lymphadenopathy is seen. A pleural effusion is not present. A pericardial effusion is not seen. Prominent central pulmonary arteries may indicate pulmonary arterial hypertension. Coronary arterial calcifications. The liver, spleen, pancreas, and adrenals appear grossly normal Moderate bilateral hydronephrosis and hydroureter is. Marked bladder distention. There is no evidence of diverticulitis. Cholelithi asis without evidence of cholecystitis Spondylosis lumbar spine resulting in spinal stenosis Small left inguinal hernia IMPRESSION: Srgl-mj-azqgftrs tree-in-bud opacities right lower lobe have improved probably indicating an atypical infection 3.6 centimeter lobulated right infrahilar mass has mostly resolved which probably was infectious COPD Moderate bilateral hydronephrosis presumably related to the marked bladder distention Cholelithiasis without evidence of cholecystitis deconditioning PT consulted for weakness stage 3 ckd PASTOR like secondary diuretic use, bladder outlet obstruction chronic uinary retention Neph following, Jeffers to BSD per neph significantly since admission renal function is also now normal avoid diuretic Avoid NSAIDs US - Renal Ultrasound-Complete - 01/04/2023 2:22 am CLINICAL HISTORY: Eval for on going hydronephrosis, bladder distenti COMPARISON: Renal Ultrasound-Complete dated 03/11/2020; Chest Abd Pelvis Wo Con dated 01/01/2023 FINDINGS: Both kidneys are normal in size, shape and echotexture. The right kidney measures 10.3 x 5.6 x 5.5 cm. Mild hydronephrosis. The left kidney measures 10.3 x 7.5 x 4.9 cm. Mild hydronephrosis. Marked urinary bladder distention with debris present. IMPRESSION: Marked urinary bladder distention containing debris with mild bilateral hydronephrosis. Finding suggests bladder outlet obstruction is present. BPH with LUTS Urinary retention with BL hydronephrosis trend kidney function Jeffers ordered Hypokalemia trend electrolytes, replace prn Hypophosphatemia Encourage nutrition Replete PO4 Thrush p.o. Diflucan changed to p.o. levofloxacin and doxepin Anemia in chronic illness trend DC plan: return to [facility] at discharge Full code diet cardiac Physician Review: Patient Assessed, Agree with Above Assessment and Plan
[2023-01-08] MEDS: POTASSIUM 25 MEQ EFFERV TAB PO SCH (09:00)
[2023-01-08] MEDS: Fluticasone/Umeclidin/Vilanter [Trelegy Ellipta 100-62.5-25] Blst.W.Dev IH SCH (09:00)
[2023-01-08] MEDS: predniSONE 10 MG TAB PO SCH ×2 (11:10→20:31)
[2023-01-08] MEDS: FLUCONAZOLE 100 MG TAB PO SCH (11:10)
[2023-01-08] MEDS: AMIODARONE HCL 200 MG TAB PO SCH ×2 (11:10→20:17)
[2023-01-08] MEDS: APIXABAN 2.5 MG TABLET PO SCH ×2 (11:10→20:17)
[2023-01-08] MEDS: ROFLUMILAST 500 MCG TABLET PO SCH (11:10)
[2023-01-08] MEDS: TAMSULOSIN 0.4 MG SR CAP PO SCH ×2 (11:10→20:17)
[2023-01-08] MEDS: levoFLOXacin 750 MG TAB PO SCH (11:11)
[2023-01-08] MEDS: NYSTATIN 500,000 UNIT/5 ML UDC PO SCH ×3 (11:11→20:31)
[2023-01-08] MEDS: NICOTINE 21 MG/PAT TD SCH (11:12)
[2023-01-08] MEDS: SERTRALINE HCL 100 MG TAB PO SCH (11:12)
[2023-01-08] MEDS: DOXYCYCLINE 100 MG CAP PO SCH ×2 (11:12→20:16)
[2023-01-08] MEDS: ATORVASTATIN 20 MG TAB PO SCH (20:16)
[2023-01-08] MEDS ORDERED: ALPRAZOLAM 0.5 MG TABLET PO ONE (20:55)
[2023-01-08] MEDS: ENSURE ENLIVE 237 ML CAN PO SCH (21:00)
[2023-01-09] MEDS: INSULIN REGULAR (HUMAN) 100 UNIT/ML SQ SCH ×4 (07:30→21:00)
--- NOTE | 2023-01-09 08:33 | P.PN ---
Subjective Date of Service: 01/09/23 Chief Complaint: Pneumonia sster at bedside, reports patient wants to dc home w son, w Home PT on Wednesday reports contineued generalized weakness, oral thrush, poor appetite - Physical Exam General: Alert, In no apparent distress, Oriented x3, Other (Generalized weakness) HEENT: Atraumatic, Normocephalic, PERRLA Neck: Supple, 2+ carotid pulse no bruit Respiratory: Normal air movement, Diminished Cardiovascular: No edema, Normal pulses Capillary refill: <2 Seconds Gastrointestinal: Normal bowel sounds, Soft and benign Musculoskeletal: No clubbing, No swelling Integumentary: No rashes, No breakdown Neurological: Normal speech, Normal tone Urinary: Jeffers catheter Review of Systems PER HPI Physical Examination - Vital Signs Temperature: 97.1 F Blood Pressure: 130/55 Pulse: 80 Respirations: 18 Pulse Ox (%): 98 Assessment And Plan - Plan Assessment plan Sepsis with hypotension Acute hypoxic respiratory failure secondary to pneumonia Syncope Pulmonary Consulted- Leukocytois improved, on PO abx hypotension syncopal attack he is doing much better and is no evidence of pulmonary emboli left upper lobe atelectasis or pneumonia, white count has improved Blood cultures are negative changed to p.o. antibiotics CT FINDINGS: The evaluation of mediastinum, casey, vessels and solid organs is limited secondary to the lack of IV contrast administration [id number] tree-in-bud opacities right lower lobe have improved since the prior CT chest. The additional bilateral tree-in-bud opacities have mostly resolved.COPD Air trapping left anterior lung base 3.6 centimeter lobulated right infrahilar mass has mostly resolved No mediastinal or hilar lymphadenopathy is seen. A pleural effusion is not present. A pericardial effusion is not seen. Prominent central pulmonary arteries may indicate pulmonary arterial hypertension. Coronary arterial calcifications. The liver, spleen, pancreas, and adrenals appear grossly normal Moderate bilateral hydronephrosis and hydroureter is. Marked bladder distention. There is no evidence of diverticulitis. Cholelithiasis without evidence of cholecystitis Spondylosis lumbar spine resulting in spinal stenosis Small left inguinal hernia IMPRESSION: Vyje-jj-kneizfla tree-in-bud opacities right lower lobe have improved probably indicating an atypical infection 3.6 centimeter lobulated right infrahilar mass has mostly resolved which probably was infectious COPD Moderate bilateral hydronephrosis presumably related to the marked bladder distention Cholelithiasis without evidence of cholecystitis deconditioning PT consulted for weakness stage 3 ckd PASTOR like secondary diuretic use, bladder outlet obstruction chronic uinary retention Neph following, Jeffers to BSD per neph significantly since admission renal function is also now normal avoid diuretic Avoid NSAIDs US - Renal Ultrasound-Complete - 01/04/2023 2:22 am CLINICAL HISTORY: Eval for on going hydronephrosis, bladder distenti COMPARISON: Renal Ultrasound-Complete dated 03/11/2020; Chest Abd Pelvis Wo Con dated 01/01/2023 FINDINGS: Both kidneys are normal in size, shape and echotexture. The right kidney measures 10.3 x 5.6 x 5.5 cm. Mild hydronephrosis. The left kidney measures 10.3 x 7.5 x 4.9 cm. Mild hydronephrosis. Marked urinary bladder distention with debris present. IMPRESSION: Marked urinary bladder distention containing debris with mild bilateral hydronephrosis. Finding suggests bladder outlet obstruction is present. BPH with LUTS Urinary retention with BL hydronephrosis trend kidney function Jeffers ordered Hypokalemia trend electrolytes, replace prn Hypophosphatemia Encourage nutrition Replete PO4 Thrush p.o. Diflucan changed to p.o. levofloxacin and doxepin Anemia in chronic illness trend [facility] plan: 01/09 sister reports plan is to [place] home w son w sitlakia, w home health/PT Full code diet cardiac Discharge Plan: Home - Code Status/Comfort Care Code Status: Full Code Physician Review: Patient Assessed, Agree with Above Assessment and Plan Critical Care: No Time Spent Managing PTS Care (In Minutes): 34
[2023-01-09] MEDS: IPRATROPIUM BROM 0.5MG/2.5ML NEB SCH ×2 (08:42→20:00)
[2023-01-09] MEDS: ARFORMOTEROL TARTRATE 15 MCG/2 ML VIAL.NEB NEB SCH ×2 (08:43→18:28)
[2023-01-09] MEDS: NYSTATIN 500,000 UNIT/5 ML UDC PO SCH ×3 (08:44→20:35)
[2023-01-09] MEDS: FLUCONAZOLE 100 MG TAB PO SCH (08:45)
[2023-01-09] MEDS: POTASSIUM 25 MEQ EFFERV TAB PO SCH (08:45)
[2023-01-09] MEDS: predniSONE 10 MG TAB PO SCH (08:45)
[2023-01-09] MEDS: TAMSULOSIN 0.4 MG SR CAP PO SCH ×2 (08:45→20:33)
[2023-01-09] MEDS: APIXABAN 2.5 MG TABLET PO SCH ×2 (08:45→20:33)
[2023-01-09] MEDS: DOXYCYCLINE 100 MG CAP PO SCH (08:45)
[2023-01-09] MEDS: AMIODARONE HCL 200 MG TAB PO SCH ×2 (08:46→20:33)
[2023-01-09] MEDS: SERTRALINE HCL 100 MG TAB PO SCH (08:46)
[2023-01-09] MEDS: levoFLOXacin 750 MG TAB PO SCH (08:46)
[2023-01-09] MEDS: ROFLUMILAST 500 MCG TABLET PO SCH (08:46)
[2023-01-09] MEDS: ENSURE ENLIVE 237 ML CAN PO SCH ×2 (08:52→23:48)
[2023-01-09] MEDS: lisinopriL 5 MG TAB PO SCH (09:00)
[2023-01-09] MEDS: Fluticasone/Umeclidin/Vilanter [Trelegy Ellipta 100-62.5-25] Blst.W.Dev IH SCH (09:00)
[2023-01-09] MEDS ORDERED: lisinopriL 10 MG TAB PO SCH (09:00)
[2023-01-09] MEDS: NICOTINE 21 MG/PAT TD SCH (09:00)
--- NOTE | 2023-01-09 11:15 | P.PN ---
Subjective Date of Service: 01/09/23 Chief Complaint: COPD weakness thrush Change in patient condition he still continues to feel weak complaining of thrush difficulty eating Review of Systems General: Weakness Respiratory: Shortness of Breath Physical Examination - Vital Signs Temperature: 98 F Blood Pressure: 115/62 Pulse: 61 Respirations: 18 Pulse Ox (%): 97 - Physical Exam General: Alert, Oriented x3, Cooperative Respiratory: Clear to auscultation bilaterally, Diminished Cardiovascular: No edema, Regular rate/rhythm, Normal S1 S2 Assessment And Plan - Current Problems (Diagnosis) (1) COPD exacerbation Current Visit: No Status: Acute Plan: Patient admitted with COPD exacerbation and frequent exacerbation terminal COPD thrush DC Trelegy use dose of prednisone patient is on Daliresp physical therapy his prognosis is very poor DC all antibiotic Far as her thrush is concerned continue with Diflucan and nystatin avoid inhaled steroids Physician Review: Patient Assessed, Agree with Above Assessment and Plan
[2023-01-09] MEDS: ATORVASTATIN 20 MG TAB PO SCH (20:35)
[2023-01-09] MEDS ORDERED: MIRTAZAPINE 15 MG TAB PO SCH (21:00)
--- NOTE | 2023-01-09 21:57 | P.PN ---
Date of Service: 01/09/23 Vital Signs Temp Pulse Resp BP Pulse Ox 97 F 82 19 138/73 94 01/09/23 20:00 01/09/23 20:00 01/09/23 20:00 01/09/23 20:00 01/09/23 20:00 Medications Acetaminophen (Acetaminophen 500 Mg Tab) 500 mg PO Q4HP PRN PRN Reason: Pain scale 2-4 (Mild) Hydrocodone Bitart/Acetaminophen (Hydrocodone/Apap 5/325 Mg Tab) 1 tab PO Q4H PRN PRN Reason: Pain scale 5-7 (Moderate) Last Admin: 01/07/23 21:22 Dose: 1 tab Albuterol Sulfate (Albuterol 2.5 Mg/3 Ml Neb Irene) 2.5 mg NEB [id number] PRN PRN Reason: SHORTNESS OF BREATH Last Admin: 01/07/23 14:14 Dose: 2.5 mg Amiodarone HCl (Amiodarone Hcl 200 Mg Tab) 200 mg PO BID [facility] Last Admin: 01/09/23 20:33 Dose: 200 mg Apixaban (Apixaban 2.5 Mg Tablet) 2.5 mg PO BID [facility] Last Admin: 01/09/23 20:33 Dose: 2.5 mg Arformoterol Tartrate (Arformoterol Tartrate 15 Mcg/2 Ml Vial.Neb) 15 mcg NEB BIDRESP [facility] Last Admin: 01/09/23 18:28 Dose: 15 mcg Atorvastatin Calcium (Atorvastatin 20 Mg Tab) 20 mg PO BEDTIME [facility] Last Admin: 01/09/23 20:35 Dose: 20 mg Benzonatate (Benzonatate 100 Mg Cap) 200 mg PO TID PRN PRN Reason: COUGH Last Admin: 01/08/23 20:49 Dose: 200 mg Fluconazole (Fluconazole 100 Mg Tab) 200 mg PO DAILY [facility]; Protocol Last Admin: 01/09/23 08:45 Dose: 200 mg Glucagon (Glucagon 1 Mg/Vial) 1 mg IM 1X PRN; Protocol PRN Reason: HYPOGLYCEMIA Home Med (Fluticasone/Umeclidin/Vilanter [Trelegy Ellipta 100-62.5-25]) 1 puff IH DAILY [facility] Last Admin: 01/08/23 09:00 Dose: Not Given Dextrose (Dextrose 10% Water Iv Soln.) 125 mls @ 0 mls/hr IV .Q0M PRN PRN Reason: HYPOGLYCEMIA Insulin Human Regular (Insulin Regular (Human) 100 Unit/Ml) 0 unit SQ ACHS [facility]; Protocol Last Admin: 01/09/23 16:30 Dose: Not Given Ipratropium Central (Ipratropium Brom 0.5mg/2.5ml) 0.5 mg NEB [id number] [facility] Last Admin: 01/09/23 08:42 Dose: Not Given Lisinopril (Lisinopril 5 Mg Tab) 5 mg PO DAILY [facility] Last Admin: 01/09/23 09:00 Dose: Not Given Magnesium Hydroxide (Magnesium Hydroxide 8% 30 Ml) 30 ml PO DAILYPRN PRN PRN Reason: CONSTIPATION Nicotine (Nicotine 21 Mg/Pat) 21 mg TD DAILY [facility] Last Admin: 01/09/23 09:00 Dose: Not Given Nutritional Formula (Ensure Enlive 237 Ml Can) 237 ml PO BID [facility] Last Admin: 01/09/23 08:52 Dose: 237 ml Nystatin (Nystatin 500,000 Unit/5 Ml Udc) 500,000 unit PO TID [facility] Last Admin: 01/09/23 20:35 Dose: 500,000 unit Ondansetron HCl (Ondansetron 4 Mg/2 Ml Vial) 4 mg IV Q6HP PRN PRN Reason: NAUSEA / VOMITING Last Admin: 01/02/23 03:02 Dose: 4 mg Potassium Bicarbonate (Potassium 25 Meq Efferv Tab) 25 meq PO DAILY [facility] Last Admin: 01/09/23 08:45 Dose: 25 meq Prednisone (Prednisone 10 Mg Tab) 10 mg PO DAILY [facility] Roflumilast (Roflumilast 500 Mcg Tablet) 500 mcg PO DAILY [facility] Last Admin: 01/09/23 08:46 Dose: 500 mcg Sertraline HCl (Sertraline Hcl 100 Mg Tab) 100 mg PO DAILY [facility] Last Admin: 01/09/23 08:46 Dose: 100 mg Tamsulosin HCl (Tamsulosin 0.4 Mg Sr Cap) 0.4 mg PO BID [facility] Last Admin: 01/09/23 20:33 Dose: 0.4 mg Microbiology Results 01/01/23 19:00 Blood - Blood Aerobic Blood Culture - Final No growth in 5 days. 01/01/23 19:00 Blood - Blood Anaerobic Blood Culture - Final No growth in 5 days. 01/01/23 18:00 Blood - Blood Aerobic Blood Culture - Final No growth in 5 days. 01/01/23 18:00 Blood - Blood Anaerobic Blood Culture - Final No growth in 5 days. Assessment/ Plan: Nephrology No dyspnea No chest pain Malaise No acute events overnight Vitals, medications, blood work and imaging reviewed in the chart. NAD. NCAT. MMM. Neck supple. Normal respiratory effort. RRR. Abd ND. No C/C. LE Edema none. No rash. AAO. Normal speech. EXAM DESCRIPTION: CT - Chest Abd Pelvis Wo Con - 01/01/2023 10:19 pm CLINICAL HISTORY: Shortness of breath and sepsis COMPARISON: December 21, 2022 CT chest TECHNIQUE: Computed axial tomography of the chest, abdomen and pelvis was obtained. Oral contrast was given. IV contrast was not requested. All CT scans are performed using dose optimization technique as appropriate and may include automated exposure control or mA/KV adjustment according to patient size. FINDINGS: The evaluation of mediastinum, casey, vessels and solid organs is limited secondary to the lack of IV contrast administration Qgsc-ik-[id number] tree-in-bud opacities right lower lobe have improved since the prior CT chest. The additional bilateral tree-in-bud opacities have mostly resolved. COPD Air trapping left anterior lung base 3.6 centimeter lobulated right infrahilar mass has mostly resolved No mediastinal or hilar lymphadenopathy is seen. A pleural effusion is not present. A pericardial effusion is not seen. Prominent central pulmonary arteries may indicate pulmonary arterial hypert ension. Coronary arterial calcifications. The liver, spleen, pancreas, and adrenals appear grossly normal Moderate bilateral hydronephrosis and hydroureter is. Marked bladder distention. There is no evidence of diverticulitis. Cholelithiasis without evidence of cholecystitis Spondylosis lumbar spine resulting in spinal stenosis Small left inguinal hernia IMPRESSION: Yjlj-pt-asmmrkfo tree-in-bud opacities right lower lobe have improved probably indicating an atypical infection 3.6 centimeter lobulated right infrahilar mass has mostly resolved which probably was infectious COPD Moderate bilateral hydronephrosis presumably related to the marked bladder distention Cholelithiasis without evidence of cholecystitis EXAM DESCRIPTION: US - Renal Ultrasound-Complete - 01/04/2023 2:22 am CLINICAL HISTORY: Eval for on going hydronephrosis, bladder distenti COMPARISON: Renal Ultrasound-Complete dated 03/11/2020; Chest Abd Pelvis Wo Con dated 01/01/2023 FINDINGS: Both kidneys are normal in size, shape and echotexture. The right kidney measures 10.3 x 5.6 x 5.5 cm. Mild hydronephrosis. The left kidney measures 10.3 x 7.5 x 4.9 cm. Mild hydronephrosis. Marked urinary bladder distention with debris present. IMPRESSION: Marked urinary bladder distention containing debris with mild bilateral hydronephrosis. Finding suggests bladder outlet obstruction is pre sent. LEFT VENTRICULAR WALL MOTION: NORMAL DOPPLER/COLOR FLOW: COMMENTS: 1. SEVERELY DILATED RIGHT ATRIUM 2. MODERATELY DILATED RIGHT VENTRICLE. MODERATELY REDUCED FUNCTION 3. LEFT VENTRICULAR EJECTION FRACTION 55% 4. MODERATE TRICUSPID REGURGITATION A/P Stage II PASTOR in the setting of hypotension & bladder outlet obstruction, resolved -No NSAIDs Hypokalemia -Potassium supplementation once daily Hypophosphatemia -Encourage nutrition -Replete prn HTN with CKD/ CHF -Continue Lisinopril 5 daily Right Heart Failure Moderate TR Pulmonary HTN? -Lasix prn DM II -RISS Anemia in chronic illness -Monitor H&H BPH with LUTS Urinary retention with BL hydronephrosis -Continue perez -Continue Flomax BID -Will need urology follow up Case reviewed with hospitalist team
[2023-01-09] MEDS: MELATONIN 3 MG TABLET PO PRN (22:26)
[2023-01-10 04:18] LABS: Absolute Lymphocytes (CBC) 1.8 K/uL (0.7-4.9); Hematocrit 29.5 % (39.6-49.0); Lymphocytes % 14.1 % (15.3-44.8); MPV 6.7 fL (7.6-11.3); Platelets 229 thou/uL (152-406); RBC Red Blood Cell Count 3.35 M/uL (4.33-5.43)
[2023-01-10 04:49] LABS: Phosphorus 3.2 mg/dL (2.5-4.9); Potassium 4.1 mEq/L (3.5-5.1); Uric Acid 4.8 mg/dL (3.5-7.2)
[2023-01-10] MEDS: INSULIN REGULAR (HUMAN) 100 UNIT/ML SQ SCH ×4 (07:30→21:00)
[2023-01-10] MEDS: IPRATROPIUM BROM 0.5MG/2.5ML NEB SCH ×3 (08:00→20:00)
--- NOTE | 2023-01-10 08:09 | P.PN ---
Subjective Date of Service: 01/10/23 Chief Complaint: Pneumonia Subjective: Improving sster at bedside, reports patient wants to dc home w son, w Home PT on Wednesday reports generalized weakness, oral thrush, poor appetite - Physical Exam General: Alert, In no apparent distress, Oriented x3, Other (Generalized weakness) HEENT: Atraumatic, Normocephalic, PERRLA Neck: Supple, 2+ carotid pulse no bruit Respiratory: Normal air movement, Diminished Cardiovascular: No edema, Normal pulses Capillary refill: <2 Seconds Gastrointestinal: Normal bowel sounds, Soft and benign Musculoskeletal: No clubbing, No swelling Integumentary: No rashes, No breakdown Neurological: Normal speech, Normal tone Urinary: Jeffers catheter Review of Systems per hpi Physical Examination - Vital Signs Temperature: 97.6 F Blood Pressure: 108/56 Pulse: 78 Respirations: 16 Pulse Ox (%): 99 Assessment And Plan - Plan Assessment plan Sepsis with hypotension Acute hypoxic respiratory failure secondary to pneumonia versus COPD exacerbation Pulmonary plan: Patient admitted with COPD exacerbation and frequent exacerbation terminal COPD thrush DC Trelegy use dose of prednisone patient is on Daliresp physical therapy his prognosis is very poor DC all antibiotic Far as her thrush is concerned continue with Diflucan and nystatin avoid inhaled steroids Syncope improved hypotension syncopal attack he is doing much better and is no evidence of pulmonary emboli left upper lobe atelectasis or pneumonia, white count has improved Blood cultures are negative changed to p.o. antibiotics CT FINDINGS: The evaluation of mediastinum, casey, vessels and solid organs is limited secondary to the lack of IV contrast administration Fqfs-yk-kfrkcnyf tree-in-bud opacities right lower lobe have improved since the prior CT chest. The additional bilateral tree-in-bud opacities have mostly resolved.COPD Air trapping left anterior lung base 3.6 centimeter lobulated right infrahilar mass has mostly resolved No mediastinal or hilar lymphadenopathy is seen. A pleural effusion is not present. A pericardial effusion is not seen. Prominent central pulmonary arteries may indicate pulmonary arterial hypertension. Coronary arterial calcifications. The liver, spleen, pancreas, and adrenals appear grossly normal Moderate bilateral hydronephrosis and hydroureter is. Marked bladder distention. There is no evidence of diverticulitis. Cholelithiasis without evidence of cholecystitis Spondylosis lumbar spine resulting in spinal stenosis Small left inguinal hernia IMPRESSION: Nfvo-xz-[id number] tree-in-bud opacities right lower lobe have improved probably indicating an atypical infection 3.6 centimeter lobulated right infrahilar mass has mostly resolved which probably was infectious COPD Moderate bilateral hydronephrosis presumably related to the marked bladder distention Cholelithiasis without evidence of cholecystitis deconditioning PT consulted for weakness stage 3 ckd PASTOR like secondary diuretic use, bladder outlet obstruction chronic uinary retention Neph following, Jeffers to BSD per neph significantly since admission renal function is also now normal avoid diuretic Avoid NSAIDs US - Renal Ultrasound-Complete - 01/04/2023 2:22 am CLINICAL HISTORY: Eval for on going hydronephrosis, bladder distenti COMPARISON: Renal Ultrasound-Complete dated 03/11/2020; Chest Abd Pelvis Wo Con dated 01/01/2023 FINDINGS: Both kidneys are normal in size, shape and echotexture. The right kidney measures 10.3 x 5.6 x 5.5 cm. Mild hydronephrosis. The left kidney measures 10.3 x 7.5 x 4.9 cm. Mild hydronephrosis. Marked urinary bladder distention with debris present. IMPRESSION: Marked urinary bladder distention containing debris with mild bilateral hydronephrosis. Finding suggests bladder outlet obstruction is present. BPH with LUTS Urinary retention with BL hydronephrosis trend kidney function Jeffers ordered Hypokalemia trend electrolytes, replace prn Hypophosphatemia Encourage nutrition Replete PO4 Thrush p.o. Diflucan changed to p.o. levofloxacin and doxepin Anemia in chronic illness trend [facility] plan: 01/09 sister reports plan is to [place] home w son w sitter, w home health/PT Full code diet cardiac Discharge Plan: Home - Code Status/Comfort Care Code Status: Full Code Physician Review: Patient Assessed, Agree with Above Assessment and Plan Critical Care: No Time Spent Managing PTS Care (In Minutes): 35
[2023-01-10] MEDS: ARFORMOTEROL TARTRATE 15 MCG/2 ML VIAL.NEB NEB SCH ×2 (08:18→19:44)
[2023-01-10] MEDS: POTASSIUM 25 MEQ EFFERV TAB PO SCH (09:00)
[2023-01-10] MEDS: TAMSULOSIN 0.4 MG SR CAP PO SCH ×2 (09:00→20:30)
[2023-01-10] MEDS: lisinopriL 5 MG TAB PO SCH (09:00)
[2023-01-10] MEDS: Fluticasone/Umeclidin/Vilanter [Trelegy Ellipta 100-62.5-25] Blst.W.Dev IH SCH (09:00)
[2023-01-10] MEDS: predniSONE 10 MG TAB PO SCH (09:00)
[2023-01-10] MEDS: SERTRALINE HCL 100 MG TAB PO SCH (09:00)
[2023-01-10] MEDS: ROFLUMILAST 500 MCG TABLET PO SCH (09:00)
[2023-01-10] MEDS: ENSURE ENLIVE 237 ML CAN PO SCH ×2 (09:00→20:31)
[2023-01-10] MEDS: NYSTATIN 500,000 UNIT/5 ML UDC PO SCH ×3 (09:02→20:30)
[2023-01-10] MEDS: ONDANSETRON 4 MG/2 ML VIAL IV PRN (09:02)
[2023-01-10] MEDS: AMIODARONE HCL 200 MG TAB PO SCH ×2 (09:02→20:30)
[2023-01-10] MEDS: NICOTINE 21 MG/PAT TD SCH (09:02)
[2023-01-10] MEDS: APIXABAN 2.5 MG TABLET PO SCH ×2 (09:02→20:30)
[2023-01-10] MEDS: FLUCONAZOLE 100 MG TAB PO SCH (09:02)
--- NOTE | 2023-01-10 14:35 | P.PN ---
Date of Service: 01/10/23 Vital Signs Temp Pulse Resp BP Pulse Ox 97.6 F 78 16 108/56 L 99 01/10/23 12:26 01/10/23 12:26 01/10/23 12:26 01/10/23 12:26 01/10/23 12:26 Medications Acetaminophen (Acetaminophen 500 Mg Tab) 500 mg PO Q4HP PRN PRN Reason: Pain scale 2-4 (Mild) Hydrocodone Bitart/Acetaminophen (Hydrocodone/Apap 5/325 Mg Tab) 1 tab PO Q4H PRN PRN Reason: Pain scale 5-7 (Moderate) Last Admin: 01/07/23 21:22 Dose: 1 tab Albuterol Sulfate (Albuterol 2.5 Mg/3 Ml Neb Irene) 2.5 mg NEB [id number] PRN PRN Reason: SHORTNESS OF BREATH Last Admin: 01/07/23 14:14 Dose: 2.5 mg Amiodarone HCl (Amiodarone Hcl 200 Mg Tab) 200 mg PO BID [facility] Last Admin: 01/10/23 09:02 Dose: 200 mg Apixaban (Apixaban 2.5 Mg Tablet) 2.5 mg PO BID [facility] Last Admin: 01/10/23 09:02 Dose: 2.5 mg Arformoterol Tartrate (Arformoterol Tartrate 15 Mcg/2 Ml Vial.Neb) 15 mcg NEB BIDRESP [facility] Last Admin: 01/10/23 08:18 Dose: 15 mcg Atorvastatin Calcium (Atorvastatin 20 Mg Tab) 20 mg PO BEDTIME [facility] Last Admin: 01/09/23 20:35 Dose: 20 mg Benzonatate (Benzonatate 100 Mg Cap) 200 mg PO TID PRN PRN Reason: COUGH Last Admin: 01/08/23 20:49 Dose: 200 mg Fluconazole (Fluconazole 100 Mg Tab) 200 mg PO DAILY [facility]; Protocol Last Admin: 01/10/23 09:02 Dose: 200 mg Glucagon (Glucagon 1 Mg/Vial) 1 mg IM 1X PRN; Protocol PRN Reason: HYPOGLYCEMIA Home Med (Fluticasone/Umeclidin/Vilanter [Trelegy Ellipta 100-62.5-25]) 1 puff IH DAILY [facility] Last Admin: 01/09/23 09:00 Dose: Not Given Dextrose (Dextrose 10% Water Iv Soln.) 125 mls @ 0 mls/hr IV .Q0M PRN PRN Reason: HYPOGLYCEMIA Insulin Human Regular (Insulin Regular (Human) 100 Unit/Ml) 0 unit SQ ACHS [facility]; Protocol Last Admin: 01/10/23 07:30 Dose: Not Given Ipratropium [place] (Ipratropium Brom 0.5mg/2.5ml) 0.5 mg NEB [id number] [facility] Last Admin: 01/10/23 08:00 Dose: Not Given Lisinopril (Lisinopril 5 Mg Tab) 5 mg PO DAILY [facility] Last Admin: 01/09/23 09:00 Dose: Not Given Magnesium Hydroxide (Magnesium Hydroxide 8% 30 Ml) 30 ml PO DAILYPRN PRN PRN Reason: CONSTIPATION Melatonin (Melatonin 3 Mg Tablet) 3 mg PO BEDTIME PRN PRN PRN Reason: INSOMNIA Last Admin: 01/09/23 22:26 Dose: 3 mg Nicotine (Nicotine 21 Mg/Pat) 21 mg TD DAILY [facility] Last Admin: 01/10/23 09:02 Dose: 21 mg Nutritional Formula (Ensure Enlive 237 Ml Can) 237 ml PO BID [facility] Last Admin: 01/09/23 23:48 Dose: 237 ml Nystatin (Nystatin 500,000 Unit/5 Ml Udc) 500,000 unit PO TID [facility] Last Admin: 01/10/23 09:02 Dose: 500,000 unit Ondansetron HCl (Ondansetron 4 Mg/2 Ml Vial) 4 mg IV Q6HP PRN PRN Reason: NAUSEA / VOMITING Last Admin: 01/10/23 09:02 Dose: 4 mg Potassium Bicarbonate (Potassium 25 Meq Efferv Tab) 25 meq PO DAILY [facility] Last Admin: 01/09/23 08:45 Dose: 25 meq Prednisone (Prednisone 10 Mg Tab) 10 mg PO DAILY [facility] Roflumilast (Roflumilast 500 Mcg Tablet) 500 mcg PO DAILY [facility] Last Admin: 01/09/23 08:46 Dose: 500 mcg Sertraline HCl (Sertraline Hcl 100 Mg Tab) 100 mg PO DAILY [facility] Last Admin: 01/09/23 08:46 Dose: 100 mg Tamsulosin HCl (Tamsulosin 0.4 Mg Sr Cap) 0.4 mg PO BID [facility] Last Admin: 01/09/23 20:33 Dose: 0.4 mg Microbiology Results 01/01/23 19:00 Blood - Blood Aerobic Blood Culture - Final No growth in 5 days. 01/01/23 19:00 Blood - Blood Anaerobic Blood Culture - Final No growth in 5 days. 01/01/23 18:00 Blood - Blood Aerobic Blood Culture - Final No growth in 5 days. 01/01/23 18:00 Blood - Blood Anaerobic Blood Culture - Final No growth in 5 days. Assessment/ Plan: Nephrology No dyspnea No chest pain Persistent weakness and fatigue No acute events overnight Vitals, medications, blood work and imaging reviewed in the chart. NAD. NCAT. MMM. Neck supple. Normal respiratory effort. RRR. Abd ND. No C/C. LE Edema none. No rash. AAO. Normal speech. Perez EXAM DESCRIPTION: CT - Chest Abd Pelvis Wo Con - 01/01/2023 10:19 pm CLINICAL HISTORY: Shortness of breath and sepsis COMPARISON: December 21, 2022 CT chest TECHNIQUE: Computed axial tomography of the chest, abdomen and pelvis was obtained. Oral contrast was given. IV contrast was not requested. All CT scans are performed using dose optimization technique as appropriate and may include automated exposure control or mA/KV adjustment according to patient size. FINDINGS: The evaluation of mediastinum, casey, vessels and solid organs is limited secondary to the lack of IV contrast administration Mddy-ne-lmqptgby tree-in-bud opacities right lower lobe have improved since the prior CT chest. The additional bilateral tree-in-bud opacities have mostly resolved. COPD Air trapping left anterior lung base 3.6 centimeter lobulated right infrahilar mass has mostly resolved No mediastinal or hilar lymphadenopathy is seen. A pleural effusion is not present. A pericardial effusion is not seen. Prominent central pulmonary arteries may indicate pulmonary arterial hypertension. Coronary arterial calcifications. The liver, spleen, pancreas, and adrenals appear grossly normal Moderate bilateral hydronephrosis and hydroureter is. Marked bladder distention. There is no evidence of diverticulitis. Cholelithiasis without evidence of cholecystitis Spondylosis lumbar spine resulting in spinal stenosis Small left inguinal hernia IMPRESSION: Lcys-dv-xjdnsait tree-in-bud opacities right lower lobe have improved probably indicating an atypical infection 3.6 centimeter lobulated right infrahilar mass has mostly resolved which probably was infectious COPD Moderate bilateral hydronephrosis presumably related to the marked bladder distention Cholelithiasis without evidence of cholecystitis EXAM DESCRIPTION: US - Renal Ultrasound-Complete - 01/04/2023 2:22 am CLINICAL HISTORY: Eval for on going hydronephrosis, bladder distenti COMPARISON: Renal Ultrasound-Complete dated 03/11/2020; Chest Abd Pelvis Wo Con dated 01/01/2023 FINDINGS: Both kidneys are normal in size, shape and echotexture. The right kidney measures 10.3 x 5.6 x 5.5 cm. Mild hydronephrosis. The left kidney measures 10.3 x 7.5 x 4.9 cm. Mild hydronephrosis. Marked urinary bladder distention with debris present. IMPRESSION: Marked urinary bladder distention containing debris with mild bilateral hydronephrosis. Finding suggests bladder outlet obstruction is present. LEFT VENTRICULAR WALL MOTION: NORMAL DOPPLER/COLOR FLOW: COMMENTS: 1. SEVERELY DILATED RIGHT ATRIUM 2. MODERATELY DILATED RIGHT VENTRICLE. MODERATELY REDUCED FUNCTION 3. LEFT VENTRICULAR EJECTION FRACTION 55% 4. MODERATE TRICUSPID REGURGITATION A/P Stage II PASTOR in the setting of hypotension & bladder outlet obstruction, resolved -No NSAIDs Hypokalemia -Potassium supplementation once daily Hypophosphatemia -Encourage nutrition -Replete prn HTN with CKD/ CHF -Continue Lisinopril 5 daily Right Heart Failure Moderate TR Pulmonary HTN? -Lasix prn DM II -RISS Anemia in chronic illness -Monitor H&H BPH with LUTS Urinary retention with BL hydronephrosis -Continue perez -Continue Flomax BID -Will need urology follow up Son and the patient want to go to rehab due to severe weakness and fatigue
[2023-01-10] MEDS: ATORVASTATIN 20 MG TAB PO SCH (20:30)
[2023-01-10] MEDS ORDERED: ALPRAZOLAM 0.5 MG TABLET PO ONE (23:05)
[2023-01-11] MEDS: ALBUTEROL 2.5 MG/3 ML NEB SOL NEB PRN (03:20)
[2023-01-11] MEDS: INSULIN REGULAR (HUMAN) 100 UNIT/ML SQ SCH ×4 (07:30→20:44)
[2023-01-11] MEDS: ARFORMOTEROL TARTRATE 15 MCG/2 ML VIAL.NEB NEB SCH ×2 (08:00→20:16)
[2023-01-11] MEDS: IPRATROPIUM BROM 0.5MG/2.5ML NEB SCH ×2 (08:00→20:00)
[2023-01-11] MEDS: ENSURE ENLIVE 237 ML CAN PO SCH ×2 (09:00→20:45)
[2023-01-11] MEDS: Fluticasone/Umeclidin/Vilanter [Trelegy Ellipta 100-62.5-25] Blst.W.Dev IH SCH (09:00)
[2023-01-11] MEDS: lisinopriL 5 MG TAB PO SCH (09:00)
[2023-01-11] MEDS: TAMSULOSIN 0.4 MG SR CAP PO SCH ×2 (09:37→20:35)
[2023-01-11] MEDS: ROFLUMILAST 500 MCG TABLET PO SCH (09:37)
[2023-01-11] MEDS: predniSONE 10 MG TAB PO SCH (09:37)
[2023-01-11] MEDS: NYSTATIN 500,000 UNIT/5 ML UDC PO SCH ×3 (09:38→20:36)
[2023-01-11] MEDS: SERTRALINE HCL 100 MG TAB PO SCH (09:38)
[2023-01-11] MEDS: POTASSIUM 25 MEQ EFFERV TAB PO SCH (09:38)
[2023-01-11] MEDS: APIXABAN 2.5 MG TABLET PO SCH ×2 (09:38→20:35)
[2023-01-11] MEDS: FLUCONAZOLE 100 MG TAB PO SCH (09:38)
[2023-01-11] MEDS: NICOTINE 21 MG/PAT TD SCH (11:27)
[2023-01-11] MEDS: AMIODARONE HCL 200 MG TAB PO SCH ×2 (11:27→20:35)
--- NOTE | 2023-01-11 12:28 | P.PN ---
Date of Service: 01/11/23 Vital Signs Temp Pulse Resp BP Pulse Ox 97.8 F 80 18 98/40 L 96 01/11/23 08:00 01/11/23 08:00 01/11/23 08:00 01/11/23 08:00 01/11/23 08:00 Medications Acetaminophen (Acetaminophen 500 Mg Tab) 500 mg PO Q4HP PRN PRN Reason: Pain scale 2-4 (Mild) Hydrocodone Bitart/Acetaminophen (Hydrocodone/Apap 5/325 Mg Tab) 1 tab PO Q4H PRN PRN Reason: Pain scale 5-7 (Moderate) Last Admin: 01/07/23 21:22 Dose: 1 tab Albuterol Sulfate (Albuterol 2.5 Mg/3 Ml Neb Irene) 2.5 mg NEB [id number] PRN PRN Reason: SHORTNESS OF BREATH Last Admin: 01/11/23 03:20 Dose: 2.5 mg Amiodarone HCl (Amiodarone Hcl 200 Mg Tab) 200 mg PO BID [facility] Last Admin: 01/11/23 11:27 Dose: 200 mg Apixaban (Apixaban 2.5 Mg Tablet) 2.5 mg PO BID [facility] Last Admin: 01/11/23 09:38 Dose: 2.5 mg Arformoterol Tartrate (Arformoterol Tartrate 15 Mcg/2 Ml Vial.Neb) 15 mcg NEB BIDRESP [facility] Last Admin: 01/11/23 08:00 Dose: Not Given Atorvastatin Calcium (Atorvastatin 20 Mg Tab) 20 mg PO BEDTIME [facility] Last Admin: 01/10/23 20:30 Dose: 20 mg Benzonatate (Benzonatate 100 Mg Cap) 200 mg PO TID PRN PRN Reason: COUGH Last Admin: 01/08/23 20:49 Dose: 200 mg Fluconazole (Fluconazole 100 Mg Tab) 200 mg PO DAILY [facility]; Protocol Last Admin: 01/11/23 09:38 Dose: 200 mg Glucagon (Glucagon 1 Mg/Vial) 1 mg IM 1X PRN; Protocol PRN Reason: HYPOGLYCEMIA Home Med (Fluticasone/Umeclidin/Vilanter [Trelegy Ellipta 100-62.5-25]) 1 puff IH DAILY [facility] Last Admin: 01/11/23 09:00 Dose: Not Given Dextrose (Dextrose 10% Water Iv Soln.) 125 mls @ 0 mls/hr IV .Q0M PRN PRN Reason: HYPOGLYCEMIA Insulin Human Regular (Insulin Regular (Human) 100 Unit/Ml) 0 unit SQ ACHS [facility]; Protocol Last Admin: 01/11/23 07:30 Dose: Not Given Ipratropium [place] (Ipratropium Brom 0.5mg/2.5ml) 0.5 mg NEB [id number] [facility] Last Admin: 01/11/23 08:00 Dose: Not Given Lisinopril (Lisinopril 5 Mg Tab) 2.5 mg PO DAILY [facility] Magnesium Hydroxide (Magnesium Hydroxide 8% 30 Ml) 30 ml PO DAILYPRN PRN PRN Reason: CONSTIPATION Melatonin (Melatonin 3 Mg Tablet) 3 mg PO BEDTIME PRN PRN PRN Reason: INSOMNIA Last Admin: 01/09/23 22:26 Dose: 3 mg Nicotine (Nicotine 21 Mg/Pat) 21 mg TD DAILY [facility] Last Admin: 01/11/23 11:27 Dose: 21 mg Nutritional Formula (Ensure Enlive 237 Ml Can) 237 ml PO BID [facility] Last Admin: 01/11/23 09:00 Dose: 237 ml Nystatin (Nystatin 500,000 Unit/5 Ml Udc) 500,000 unit PO TID [facility] Last Admin: 01/11/23 09:38 Dose: 500,000 unit Ondansetron HCl (Ondansetron 4 Mg/2 Ml Vial) 4 mg IV Q6HP PRN PRN Reason: NAUSEA / VOMITING Last Admin: 01/10/23 09:02 Dose: 4 mg Potassium Bicarbonate (Potassium 25 Meq Efferv Tab) 25 meq PO DAILY [facility] Last Admin: 01/11/23 09:38 Dose: 25 meq Prednisone (Prednisone 10 Mg Tab) 10 mg PO DAILY [facility] Last Admin: 01/11/23 09:37 Dose: 10 mg Roflumilast (Roflumilast 500 Mcg Tablet) 500 mcg PO DAILY [facility] Last Admin: 01/11/23 09:37 Dose: 500 mcg Sertraline HCl (Sertraline Hcl 100 Mg Tab) 100 mg PO DAILY [facility] Last Admin: 01/11/23 09:38 Dose: 100 mg Tamsulosin HCl (Tamsulosin 0.4 Mg Sr Cap) 0.4 mg PO BID [facility] Last Admin: 01/11/23 09:37 Dose: 0.4 mg Microbiology Results 01/01/23 19:00 Blood - Blood Aerobic Blood Culture - Final No growth in 5 days. 01/01/23 19:00 Blood - Blood Anaerobic Blood Culture - Final No growth in 5 days. 01/01/23 18:00 Blood - Blood Aerobic Blood Culture - Final No growth in 5 days. 01/01/23 18:00 Blood - Blood Anaerobic Blood Culture - Final No growth in 5 days. Assessment/ Plan: Nephrology No dyspnea No chest pain Persistent weakness and fatigue Productive cough Insomnia/ Anxiety No acute events overnight Vitals, medications, blood work and imaging reviewed in the chart. NAD. NCAT. MMM. Neck supple. Normal respiratory effort. RRR. Abd ND. No C/C. LE Edema none. No rash. AAO. Normal speech. Perez EXAM DESCRIPTION: CT - Chest Abd Pelvis Wo Con - 01/01/2023 10:19 pm CLINICAL HISTORY: Shortness of breath and sepsis COMPARISON: December 21, 2022 CT chest TECHNIQUE: Computed axial tomography of the chest, abdomen and pelvis was obtained. Oral contrast was given. IV contrast was not requested. All CT scans are performed using dose optimization technique as appropriate and may include automated exposure control or mA/KV adjustment according to patient size. FINDINGS: The evaluation of mediastinum, casey, vessels and solid organs is limited secondary to the lack of IV contrast administration Qiqe-ya-hslkaoyh tree-in-bud opacities right lower lobe have improved since the prior CT chest. The additional bilateral tree-in-bud opacities have mostly resolved. COPD Air trapping left anterior lung base 3.6 centimeter lobulated right infrahilar mass has mostly resolved No mediastinal or hilar lymphadenopathy is seen. A pleural effusion is not present. A pericardial effusion is not seen. Prominent central pulmonary arteries may indicate pulmonary arterial hypertension. Coronary arterial calcifications. The liver, spleen, pancreas, and adrenals appear grossly normal Moderate bilateral hydronephrosis and hydroureter is. Marked bladder distention. There is no evidence of diverticulitis. Cholelithiasis without evidence of cholecystitis Spondylosis lumbar spine resulting in spinal stenosis Small left inguinal hernia IMPRESSION: Opzp-ng-untwoesv tree-in-bud opacities right lower lobe have improved probably indicating an atypical infection 3.6 centimeter lobulated right infrahilar mass has mostly resolved which probably was infectious COPD Moderate bilateral hydronephrosis presumably related to the marked bladder distention Cholelithiasis without evidence of cholecystitis EXAM DESCRIPTION: US - Renal Ultrasound-Complete - 01/04/2023 2:22 am CLINICAL HISTORY: Eval for on going hydronephrosis, bladder distenti COMPARISON: Renal Ultrasound-Complete dated 03/11/2020; Chest Abd Pelvis Wo Con dated 01/01/2023 FINDINGS: Both kidneys are normal in size, shape and echotexture. The right kidney measures 10.3 x 5.6 x 5.5 cm. Mild hydronephrosis. The left kidney measures 10.3 x 7.5 x 4.9 cm. Mild hydronephrosis. Marked urinary bladder distention with debris present. IMPRESSION: Marked urinary bladder distention containing debris with mild bilateral hydronephrosis. Finding suggests bladder outlet obstruction is present. LEFT VENTRICULAR WALL MOTION: NORMAL DOPPLER/COLOR FLOW: COMMENTS: 1. SEVERELY DILATED RIGHT ATRIUM 2. MODERATELY DILATED RIGHT VENTRICLE. MODERATELY REDUCED FUNCTION 3. LEFT VENTRICULAR EJECTION FRACTION 55% 4. MODERATE TRICUSPID REGURGITATION A/P Stage II PASTOR in the setting of hypotension & bladder outlet obstruction, resolved -No NSAIDs Hypokalemia -Potassium supplementation once daily Hypophosphatemia -Encourage nutrition -Replete prn HTN with CKD/ CHF -Continue Lisinopril 5 daily Right Heart Failure Moderate TR Pulmonary HTN? -Lasix prn DM II -RISS Anemia in chronic illness -Monitor H&H BPH with LUTS Urinary retention with BL hydronephrosis -Continue perez -Continue Flomax BID -Will need urology follow up Hospitalist note reviewed Case reviewed with the family and the patient
--- NOTE | 2023-01-11 14:18 | P.PN ---
Subjective Date of Service: 01/11/23 Chief Complaint: Pneumonia Subjective: No new changes, Improving, Doing well Patient is resting, arousable to calls Patient denies pain or discomfort On oxygen via nasal cannula Vital signs are stable Family member in the room reports that patient did not sleep well last night No other acute findings Review of Systems 10-point ROS is otherwise unremarkable Physical Examination - Vital Signs Temperature: 97.8 F Blood Pressure: 98/40 Pulse: 80 Respirations: 18 Pulse Ox (%): 96 - Physical Exam General: Alert, Oriented x3 HEENT: Atraumatic, PERRLA Neck: Supple, 2+ carotid pulse no bruit Respiratory: Expiratory wheezes, Other (Short of breath with mild exertion, on oxygen via nasal cannula 3 L/min) Cardiovascular: No edema, Irregular heart rate/rhythm Capillary refill: <2 Seconds Gastrointestinal: Normal bowel sounds, Soft and benign Musculoskeletal: No clubbing, No warmth Integumentary: No rashes Neurological: Normal speech, Normal affect Assessment And Plan - Current Problems (Diagnosis) (1) Severe sepsis with septic shock Current Visit: Yes Status: Acute (2) Acute kidney failure Current Visit: Yes Status: Acute (3) Afib Current Visit: Yes Status: Chronic Qualifiers: Atrial fibrillation type: unspecified chronic Qualified Code(s): I48.20 - Chronic atrial fibrillation, unspecified; I48.2 - Chronic atrial fibrillation (4) Hypotension Current Visit: Yes Status: Acute (5) Acute respiratory failure with hypoxia and hypercapnia Current Visit: No Status: Acute (6) Pneumonia Current Visit: No Status: Acute Qualifiers: Pneumonia type: due to unspecified organism Laterality: right (7) Congestive heart failure (CHF) Current Visit: No Status: Chronic Qualifiers: Heart failure chronicity: unspecified (8) T2DM (type 2 diabetes mellitus) Current Visit: No Status: Chronic Qualifiers: Diabetes mellitus longterm insulin use: without longterm use Diabetes mellitus complication status: with hyperglycemia Qualified Code(s): E11.65 - Type 2 diabetes mellitus with hyperglycemia - Plan (1) Severe sepsis with septic shock (4) Hypotension (5) Acute respiratory failure with hypoxia and hypercapnia (6) Pneumonia Patient admitted with COPD exacerbation and frequent exacerbation terminal COPD thrush DC Trelegy use dose of prednisone patient is on Daliresp physical therapy his prognosis is very poor DC all antibiotic Far as her thrush is concerned continue with Diflucan and nystatin avoid inhaled steroids Vital stable (2) Acute kidney failure stage 3 ckd PASTOR like secondary diuretic use, bladder outlet obstruction chronic uinary retention Acute,enal impairment, improving CT scan shows bilateral hydro nephrosis moderate We will insert Jeffers catheter to prevent obstruction and keep accurate and in and out Nephrology consult Dr. Merry Gabriel following, Jeffers to BSD per neph significantly since admission renal function is also now normal avoid diuretic Avoid NSAIDs (3) Afib Chronic rate controlled and anticoagulated with Eliquis Patient denies chest pain or palpitation We will continue the current management Acute on chronic urinary distress On oxygen, bronchodilators, antibiotics Pulmonology consult (7) Congestive heart failure (CHF) Chronic, last echo 12/22/2019 EF of 55% We will continue to monitor Low-sodium diet (8) Type Diabetes Mellitus Chronic, controlled on diet alone Sugar check before meals and at bedtime with a low-dose sliding scale of insulin We will check the A1c in the morning Syncope improved hypotension syncopal attack he is doing much better and is no evidence of pulmonary emboli left upper lobe atelectasis or pneumonia, white count has improved Blood cultures are negative changed to p.o. antibiotics CODE STATUSfull code Dietdiabetic DVT prophylaxisEliquis deconditioning PT consulted for weakness DC plan: 01/09 sister reports plan is to DC home w son w sitter, w home health/PT Full code diet cardiac Physician Review: Patient Assessed, Agree with Above Assessment and Plan
[2023-01-11] MEDS: MIRTAZAPINE 15 MG TAB PO SCH (20:35)
[2023-01-11] MEDS: ATORVASTATIN 20 MG TAB PO SCH (20:35)
[2023-01-11] MEDS: MELATONIN 3 MG TABLET PO PRN (20:36)
[2023-01-11] MEDS: LORAZEPAM 0.5 MG TABLET PO PRN (20:36)
[2023-01-12] MEDS: INSULIN REGULAR (HUMAN) 100 UNIT/ML SQ SCH ×4 (07:30→20:48)
[2023-01-12] MEDS: IPRATROPIUM BROM 0.5MG/2.5ML NEB SCH ×2 (07:52→19:52)
[2023-01-12] MEDS: ARFORMOTEROL TARTRATE 15 MCG/2 ML VIAL.NEB NEB SCH ×2 (07:52→20:18)
[2023-01-12] MEDS: ROFLUMILAST 500 MCG TABLET PO SCH (08:58)
[2023-01-12] MEDS: NYSTATIN 500,000 UNIT/5 ML UDC PO SCH ×3 (08:58→21:00)
[2023-01-12] MEDS: APIXABAN 2.5 MG TABLET PO SCH ×2 (08:58→20:43)
[2023-01-12] MEDS: predniSONE 10 MG TAB PO SCH (08:58)
[2023-01-12] MEDS: TAMSULOSIN 0.4 MG SR CAP PO SCH ×2 (08:58→20:42)
[2023-01-12] MEDS: FLUCONAZOLE 100 MG TAB PO SCH (08:58)
[2023-01-12] MEDS: SERTRALINE HCL 100 MG TAB PO SCH (08:59)
[2023-01-12] MEDS: POTASSIUM 25 MEQ EFFERV TAB PO SCH (08:59)
[2023-01-12] MEDS: AMIODARONE HCL 200 MG TAB PO SCH ×2 (08:59→20:43)
[2023-01-12] MEDS: ENSURE ENLIVE 237 ML CAN PO SCH ×2 (09:00→21:00)
[2023-01-12] MEDS ORDERED: lisinopriL 5 MG TAB PO SCH (09:00)
[2023-01-12] MEDS: Fluticasone/Umeclidin/Vilanter [Trelegy Ellipta 100-62.5-25] Blst.W.Dev IH SCH (09:00)
[2023-01-12] MEDS: NICOTINE 21 MG/PAT TD SCH (09:03)
--- NOTE | 2023-01-12 11:02 | P.PN ---
Subjective Date of Service: 01/12/23 Chief Complaint: Pneumonia Subjective: No new changes, C/O voiced (increassing tiredness and fatigue) Patient is resting, arousable to calls Patient denies pain or discomfort On oxygen via nasal cannula Vital signs are stable No other acute findings <Neo Storey - Last Filed: 01/12/23 11:08> Date of Service: 01/12/23 <Dion Sharma Flo - Last Filed: 01/12/23 18:02> Physical Examination - Vital Signs Temperature: 97.9 F Blood Pressure: 107/53 Pulse: 80 Respirations: 21 Pulse Ox (%): 95 - Physical Exam General: Alert, Oriented x3 HEENT: Atraumatic, Normocephalic Neck: Supple, 2+ carotid pulse no bruit Respiratory: Other (short of breath with mild exertion, on o2 via n/c 2 LPM) Cardiovascular: No edema, Normal pulses Capillary refill: <2 Seconds Gastrointestinal: Normal bowel sounds, Soft and benign Musculoskeletal: No clubbing, No swelling Integumentary: No rashes, No breakdown Neurological: Normal speech, Normal tone, Normal affect <StoreyNeo rosales - Last Filed: 01/12/23 11:08> Assessment And Plan - Current Problems (Diagnosis) (1) Severe sepsis with septic shock Current Visit: Yes Status: Acute (2) Acute kidney failure Current Visit: Yes Status: Acute (3) Afib Current Visit: Yes Status: Chronic Qualifiers: Atrial fibrillation type: unspecified chronic Qualified Code(s): I48.20 - Chronic atrial fibrillation, unspecified; I48.2 - Chronic atrial fibrillation (4) Hypotension Current Visit: Yes Status: Acute (5) Acute respiratory failure with hypoxia and hypercapnia Current Visit: No Status: Acute (6) Pneumonia Current Visit: No Status: Acute Qualifiers: Pneumonia type: due to unspecified organism Laterality: right (7) Congestive heart failure (CHF) Current Visit: No Status: Chronic Qualifiers: Heart failure chronicity: unspecified (8) T2DM (type 2 diabetes mellitus) Current Visit: No Status: Chronic Qualifiers: Diabetes mellitus nursing home insulin use: without nursing home use Diabetes mellitus complication status: with hyperglycemia Qualified Code(s): E11.65 - Type 2 diabetes mellitus with hyperglycemia - Plan (1) Severe sepsis with septic shock (4) Hypotension (5) Acute respiratory failure with hypoxia and hypercapnia (6) Pneumonia -Patient admitted with COPD exacerbation and frequent exacerbation terminal COPD -thrush improving - patient is on Daliresp physical therapy his prognosis is very poor -DC all antibiotic -Far as her thrush is concerned continue with Diflucan and nystatin avoid inhaled steroids -Vital stable -Reporting increased weakness and fatigue. Repat BMP (2) Acute kidney failure stage 3 ckd PASTOR like secondary diuretic use, bladder outlet obstruction chronic uinary retention Acute,renal impairment, improving CT scan shows bilateral hydro nephrosis moderate We will insert Jeffers catheter to prevent obstruction and keep accurate and in and out Nephrology consult Dr. Sousa Neph following, Jeffers to BSD per neph significantly since admission renal function is also now normal avoid diuretic Avoid NSAIDs (3) Afib Chronic rate controlled and anticoagulated with Eliquis Patient denies chest pain or palpitation We will continue the current management Acute on chronic urinary distress On oxygen, bronchodilators, antibiotics Pulmonology consult (7) Congestive heart failure (CHF) Chronic, last echo 12/22/2019 EF of 55% We will continue to monitor Low-sodium diet (8) Type Diabetes Mellitus Chronic, controlled on diet alone Sugar check before meals and at bedtime with a low-dose sliding scale of insulin We will check the A1c in the morning Syncope improved hypotension syncopal attack he is doing much better and is no evidence of pulmonary emboli left upper lobe atelectasis or pneumonia, white count has improved Blood cultures are negative changed to p.o. antibiotics CODE STATUSfull code Dietdiabetic DVT prophylaxisEliquis deconditioning PT consulted for weakness DC plan: 01/09 sister reports plan is to DC home w son w sitlakia, w home health/PT Full code diet cardiac Discharge Plan: Home Plan to discharge in: 24 Hours - Code Status/Comfort Care Code Status Assessed: Yes (full code) Code Status: Full Code Physician Review: Patient Assessed, Agree with Above Assessment and Plan Critical Care: No Time Spent Managing PTS Care (In Minutes): 35 (minutes) <Neo Storey - Last Filed: 01/12/23 11:08> Physician Review Additional Text: 01/12/23 18:01 Pt seen and examined. i agree withe note by the RADIOLOGY THERAPIST. Pt has diarrhea. Will check for C diff. if negative, Will give imodium. Pt feels too weak to be discharged today. <Dion Sharma - Last Filed: 01/12/23 18:02>
[2023-01-12 12:06] LABS: Magnesium 2.4 mg/dL (1.6-2.4); Phosphorus 2.8 mg/dL (2.5-4.9); Potassium 3.6 mEq/L (3.5-5.1)
--- NOTE | 2023-01-12 15:41 | P.DS ---
Admission Date: 01/01/23 Discharge Date: 01/12/23 Disposition: ROUTINE DISCHARGE Discharge Condition: FAIR Reason for Admission: Pneumonia - Problems (1) Severe sepsis with septic shock Current Visit: Yes Status: Acute (2) Acute kidney failure Current Visit: Yes Status: Acute (3) Afib Current Visit: Yes Status: Chronic Qualifiers: Atrial fibrillation type: unspecified chronic Qualified Code(s): I48.20 - Chronic atrial fibrillation, unspecified; I48.2 - Chronic atrial fibrillation (4) Hypotension Current Visit: Yes Status: Acute (5) Acute respiratory failure with hypoxia and hypercapnia Current Visit: No Status: Acute (6) Pneumonia Current Visit: No Status: Acute Qualifiers: Pneumonia type: due to unspecified organism Laterality: right (7) Congestive heart failure (CHF) Current Visit: No Status: Chronic Qualifiers: Heart failure chronicity: unspecified (8) T2DM (type 2 diabetes mellitus) Current Visit: No Status: Chronic Qualifiers: Diabetes mellitus meterman insulin use: without fdc use Diabetes mellitus complication status: with hyperglycemia Qualified Code(s): E11.65 - Type 2 diabetes mellitus with hyperglycemia Brief History of Present Illness: is a 72-year-old male with a history of COPD, diabetes mellitus not insulin dependent, hypertension, atrial fibrillation, asthma present to emergency room via the unassigned with complaints of syncope. Patient reports he got up from the bed to the wheelchair to go to the restroom and passed out while in the wheelchair. Patient did not fall to the ground and has no injuries. Patient's son started cardiac compressions when the patient passed out and it woke the patient up. Patient reports that he feels very tired at this time states that he is short of breath with mild exertion. Patient denies chest pain or pressure. Patient denies abdominal pain, nausea, vomiting. Patient denies fever chills or weight loss. ED course Vital signs 78/40, pulse 106, respiration 18, pulse ox 95% on room air. A central line was placed to right internal jugular by the ED physician. Patient was started on Levophed infusion to maintain the blood pressure above 90 systolic after fluid resuscitation of 30 mill per KG sepsis bolus. Initial laboratory findings significant for leukocytosis WBC 23.6, renal impairment BUN 113, creatinine 2.09, GFR 33. Admitting the patient with a diagnosis of severe sepsis with septic shock, pneumonia, acute renal failure. Hospital Course: is a 72-year-old male with a history of COPD, diabetes mellitus not insulin dependent, hypertension, atrial fibrillation, asthma who was admitted to the [facility] on on 01/02/2023 with a diagnosis of severe sepsis with septic shock, pneumonia and acute renal failure Patient was admitted to the hospital, and treated with IV fluid, IV antibiotics, bronchodilators, steroids Patient is consulted to weed cooking operator and welder production line gas. Patient's condition improved. On 01/13/2020, patient was seen on morning rounds and deemed medically stable for discharge. Patient was discharged with instructions to schedule follow-up appointments with PCP 3 to 5 days and welder production line gas in 4 weeks. Vital Signs/Physical Exam: Temp Pulse Resp BP Pulse Ox 97.6 F 80 26 H 102/44 L 96 01/12/23 12:00 01/12/23 12:00 01/12/23 12:00 01/12/23 12:00 01/12/23 12:00 Laboratory Data at Discharge: WBC 12.60 thou/uL (4.3-10.9) H 01/10/23 03:50 Hgb 9.7 g/dL (13.6-17.9) L 01/10/23 03:50 Hct 29.5 % (39.6-49.0) L 01/10/23 03:50 Plt Count 229 thou/uL (152-406) 01/10/23 03:50 PT 16.2 SECONDS (9.5-12.5) H 01/01/23 16:40 INR 1.47 01/01/23 16:40 APTT 31.9 SECONDS (24.3-36.9) 01/04/23 04:20 Sodium 141 mEq/L (136-145) 01/12/23 11:45 Potassium 3.6 mEq/L (3.5-5.1) 01/12/23 11:45 BUN 47 mg/dL (7-18) H 01/12/23 11:45 Creatinine 0.84 mg/dL (0.70-1.30) 01/12/23 11:45 Glucose 129 mg/dL (74-106) H 01/12/23 11:45 Uric Acid 4.8 mg/dL (3.5-7.2) 01/10/23 03:50 Phosphorus 2.8 mg/dL (2.5-4.9) 01/12/23 11:45 Magnesium 2.4 mg/dL (1.6-2.4) 01/12/23 11:45 Total Bilirubin 0.4 mg/dL (0.2-1.0) 01/08/23 05:41 AST 16 U/L (15-37) 01/08/23 05:41 ALT 26 U/L (16-61) 01/08/23 05:41 Alkaline Phosphatase 76 U/L (45-117) 01/08/23 05:41 Triglycerides 108 mg/dL (<150) 01/03/23 04:13 Cholesterol 83 mg/dL (<200) 01/03/23 04:13 HDL Cholesterol 44 mg/dL (40-60) 01/03/23 04:13 Cholesterol/HDL Ratio 1.89 01/03/23 04:13 Home Medications: Simvastatin [Zocor*] 40 mg PO BEDTIME 05/13/13 Hydrocodone/Acetaminophen [Cushman 5-325 Tablet] 1 each PO BIDP PRN 01/26/17 Triamterene/Hydrochlorothiazid [Triamterene-Hctz 37.5-25 mg Cp] 1 each PO DAILY 01/26/17 Albuterol Inhaler [Ventolin Inhaler*] 1 puff IN BID PRN 01/22/21 Metformin HCl 1,000 tab PO BID 01/22/21 Lisinopril [Zestril] 2.5 mg PO DAILY 05/28/21 Pregabalin [Lyrica] 25 mg PO BID 05/28/21 Albuterol Neb [Proventil 0.083% Neb Soln] 2.5 mg NEB [id number] #60 amp 05/29/21 Ipratropium Neb [Atrovent*] 0.5 mg NEB [id number] #60 amp 05/29/21 Nicotine [Nicotine Patch] 1 each TD DAILY 10/22/21 Benzonatate [Tessalon Perle*] 200 mg PO TID PRN #30 cap 12/09/21 predniSONE [Deltasone*] 10 mg PO T,TH,S 06/11/22 Amiodarone HCl [Cordarone*] 200 mg PO BID #60 tab 06/17/22 Apixaban [Eliquis *] 2.5 mg PO BID #60 tab 06/17/22 Fluconazole 100 mg PO DAILY 3 Days #3 tab 06/17/22 buPROPion HCL [Bupropion Xl] 150 mg PO DAILY 12/22/22 Arformoterol Tartrate [Brovana] 15 mcg NEB BIDRESP #60 vial.neb 12/31/22 Pregabalin [Lyrica*] 50 mg PO BID #60 cap 12/31/22 Roflumilast [Daliresp*] 500 mcg PO DAILY #30 12/31/22 Sertraline [Zoloft*] 100 mg PO DAILY #30 tab 12/31/22 Umeclidinium Brm/Vilanterol Tr [Anoro Ellipta 62.5-25 Mcg INH] 1 each IH DAILY 30 Days #30 aero 01/09/23 New Medications: Umeclidinium Brm/Vilanterol Tr [Anoro Ellipta 62.5-25 Mcg INH] 1 each IH DAILY 30 Days #30 aero Physician Discharge Instructions: is a 72-year-old male with a history of COPD, diabetes mellitus not insulin dependent, hypertension, atrial fibrillation, asthma who was admitted to the [facility] on on 01/02/2023 with a diagnosis of severe sepsis with septic shock, pneumonia and acute renal failure Patient was admitted to the hospital, and treated with IV fluid, IV antibiotics, bronchodilators, steroids Patient is consulted to weed cooking operator and welder production line gas. Patient's condition improved. On 01/13/2020, patient was seen on morning rounds and deemed medically stable for discharge. Patient was discharged with instructions to schedule follow-up appointments with PCP 3 to 5 days and welder production line gas in 4 weeks. Followup: Uri Maldonado, [Primary Care Provider] -
[2023-01-12] MEDS ORDERED: LOPERAMIDE HCL 2 MG CAPSULE PO STA (18:55)
[2023-01-12] MEDS: MIRTAZAPINE 15 MG TAB PO SCH (20:43)
[2023-01-12] MEDS: ATORVASTATIN 20 MG TAB PO SCH (20:45)
--- NOTE | 2023-01-12 21:12 | P.PN ---
Date of Service: 01/12/23 Vital Signs Temp Pulse Resp BP Pulse Ox 97.9 F 80 24 H 104/46 L 94 01/12/23 16:00 01/12/23 16:00 01/12/23 16:00 01/12/23 16:00 01/12/23 16:00 Medications Acetaminophen (Acetaminophen 500 Mg Tab) 500 mg PO Q4HP PRN PRN Reason: Pain scale 2-4 (Mild) Hydrocodone Bitart/Acetaminophen (Hydrocodone/Apap 5/325 Mg Tab) 1 tab PO Q4H PRN PRN Reason: Pain scale 5-7 (Moderate) Last Admin: 01/07/23 21:22 Dose: 1 tab Albuterol Sulfate (Albuterol 2.5 Mg/3 Ml Neb Irene) 2.5 mg NEB [id number] PRN PRN Reason: SHORTNESS OF BREATH Last Admin: 01/11/23 03:20 Dose: 2.5 mg Amiodarone HCl (Amiodarone Hcl 200 Mg Tab) 200 mg PO BID [facility] Last Admin: 01/12/23 20:43 Dose: 200 mg Apixaban (Apixaban 2.5 Mg Tablet) 2.5 mg PO BID [facility] Last Admin: 01/12/23 20:43 Dose: 2.5 mg Arformoterol Tartrate (Arformoterol Tartrate 15 Mcg/2 Ml Vial.Neb) 15 mcg NEB BIDRESP [facility] Last Admin: 01/12/23 20:18 Dose: 15 mcg Atorvastatin Calcium (Atorvastatin 20 Mg Tab) 20 mg PO BEDTIME [facility] Last Admin: 01/12/23 20:45 Dose: 20 mg Benzonatate (Benzonatate 100 Mg Cap) 200 mg PO TID PRN PRN Reason: COUGH Last Admin: 01/08/23 20:49 Dose: 200 mg Fluconazole (Fluconazole 100 Mg Tab) 200 mg PO DAILY [facility]; Protocol Last Admin: 01/12/23 08:58 Dose: 200 mg Glucagon (Glucagon 1 Mg/Vial) 1 mg IM 1X PRN; Protocol PRN Reason: HYPOGLYCEMIA Home Med (Fluticasone/Umeclidin/Vilanter [Trelegy Ellipta 100-62.5-25]) 1 puff IH DAILY [facility] Last Admin: 01/12/23 09:00 Dose: Not Given Dextrose (Dextrose 10% Water Iv Soln.) 125 mls @ 0 mls/hr IV .Q0M PRN PRN Reason: HYPOGLYCEMIA Insulin Human Regular (Insulin Regular (Human) 100 Unit/Ml) 0 unit SQ ACHS [facility]; Protocol Last Admin: 01/12/23 20:48 Dose: Not Given Ipratropium Williamson (Ipratropium Brom 0.5mg/2.5ml) 0.5 mg NEB [id number] [facility] Last Admin: 01/12/23 19:52 Dose: Not Given Lisinopril (Lisinopril 5 Mg Tab) 2.5 mg PO DAILY [facility] Last Admin: 01/12/23 08:59 Dose: 2.5 mg Lorazepam (Lorazepam 0.5 Mg Tablet) 0.5 mg PO Q6H PRN PRN Reason: ANXIETY Last Admin: 01/11/23 20:36 Dose: 0.5 mg Magnesium Hydroxide (Magnesium Hydroxide 8% 30 Ml) 30 ml PO DAILYPRN PRN PRN Reason: CONSTIPATION Melatonin (Melatonin 3 Mg Tablet) 3 mg PO BEDTIME PRN PRN PRN Reason: INSOMNIA Last Admin: 01/11/23 20:36 Dose: 3 mg Mirtazapine (Mirtazapine 15 Mg Tab) 7.5 mg PO BEDTIME [facility] Last Admin: 01/12/23 20:43 Dose: 7.5 mg Nicotine (Nicotine 21 Mg/Pat) 21 mg TD DAILY [facility] Last Admin: 01/12/23 09:03 Dose: 21 mg Nutritional Formula (Ensure Enlive 237 Ml Can) 237 ml PO BID [facility] Last Admin: 01/12/23 09:00 Dose: Not Given Nystatin (Nystatin 500,000 Unit/5 Ml Udc) 500,000 unit PO TID [facility] Last Admin: 01/12/23 14:00 Dose: Not Given Ondansetron HCl (Ondansetron 4 Mg/2 Ml Vial) 4 mg IV Q6HP PRN PRN Reason: NAUSEA / VOMITING Last Admin: 01/10/23 09:02 Dose: 4 mg Potassium Bicarbonate (Potassium 25 Meq Efferv Tab) 25 meq PO DAILY [facility] Last Admin: 01/12/23 08:59 Dose: 25 meq Prednisone (Prednisone 10 Mg Tab) 10 mg PO DAILY [facility] Last Admin: 01/12/23 08:58 Dose: 10 mg Roflumilast (Roflumilast 500 Mcg Tablet) 500 mcg PO DAILY [facility] Last Admin: 01/12/23 08:58 Dose: 500 mcg Sertraline HCl (Sertraline Hcl 100 Mg Tab) 100 mg PO DAILY [facility] Last Admin: 01/12/23 08:59 Dose: 100 mg Tamsulosin HCl (Tamsulosin 0.4 Mg Sr Cap) 0.4 mg PO BID [facility] Last Admin: 01/12/23 20:42 Dose: 0.4 mg Microbiology Results 01/01/23 19:00 Blood - Blood Aerobic Blood Culture - Final No growth in 5 days. 01/01/23 19:00 Blood - Blood Anaerobic Blood Culture - Final No growth in 5 days. 01/01/23 18:00 Blood - Blood Aerobic Blood Culture - Final No growth in 5 days. 01/01/23 18:00 Blood - Blood Anaerobic Blood Culture - Final No growth in 5 days. Assessment/ Plan: Nephrology No dyspnea No chest pain Persistent weakness and fatigue Productive cough Slept better last night No acute events overnight Vitals, medications, blood work and imaging reviewed in the chart. NAD. NCAT. MMM. Neck supple. Normal respiratory effort. RRR. Abd ND. No C/C. LE Edema none. No rash. AAO. Normal speech. Perez EXAM DESCRIPTION: CT - Chest Abd Pelvis Wo Con - 01/01/2023 10:19 pm CLINICAL HISTORY: Shortness of breath and sepsis COMPARISON: December 21, 2022 CT chest TECHNIQUE: Computed axial tomography of the chest, abdomen and pelvis was obtained. Oral contrast was given. IV contrast was not requested. All CT scans are performed using dose optimization technique as appropriate and may include automated exposure control or mA/KV adjustment according to patient size. FINDINGS: The evaluation of mediastinum, casey, vessels and solid organs is limited secondary to the lack of IV contrast administration [id number] tree-in-bud opacities right lower lobe have improved since the prior CT chest. The additional bilateral tree-in-bud opacities have mostly resolved. COPD Air trapping left anterior lung base 3.6 centimeter lobulated right infrahilar mass has mostly resolved No mediastinal or hilar lymphadenopathy is seen. A pleural effusion is not present. A pericardial effusion is not seen. Prominent central pulmonary arteries may indicate pulmonary arterial hypertension. Coronary arterial calcifications. The liver, spleen, pancreas, and adrenals appear grossly normal Moderate bilateral hydronephrosis and hydroureter is. Marked bladder distention. There is no evidence of diverticulitis. Cholelithiasis without evidence of cholecystitis Spondylosis lumbar spine resulting in spinal stenosis Small left inguinal hernia IMPRESSION: [id number] tree-in-bud opacities right lower lobe have improved probably indicating an atypical infection 3.6 centimeter lobulated right infrahilar mass has mostly resolved which probably was infectious COPD Moderate bilateral hydronephrosis presumably related to the marked bladder distention Cholelithiasis without evidence of cholecystitis EXAM DESCRIPTION: US - Renal Ultrasound-Complete - 01/04/2023 2:22 am CLINICAL HISTORY: Eval for on going hydronephrosis, bladder distenti COMPARISON: Renal Ultrasound-Complete dated 03/11/2020; Chest Abd Pelvis Wo Con dated 01/01/2023 FINDINGS: Both kidneys are normal in size, shape and echotexture. The right kidney measures 10.3 x 5.6 x 5.5 cm. Mild hydronephrosis. The left kidney measures 10.3 x 7.5 x 4.9 cm. Mild hydronephrosis. Marked urinary bladder distention with debris present. IMPRESSION: Marked urinary bladder distention containing debris with mild bilateral hydronephrosis. Finding suggests bladder outlet obstruction is present. LEFT VENTRICULAR WALL MOTION: NORMAL DOPPLER/COLOR FLOW: COMMENTS: 1. SEVERELY DILATED RIGHT ATRIUM 2. MODERATELY DILATED RIGHT VENTRICLE. MODERATELY REDUCED FUNCTION 3. LEFT VENTRICULAR EJECTION FRACTION 55% 4. MODERATE TRICUSPID REGURGITATION A/P Stage II PASTOR in the setting of hypotension & bladder outlet obstruction, resolved -No NSAIDs Hypokalemia -Potassium supplementation once daily Hypophosphatemia -Encourage nutrition -Replete prn HTN with CKD/ CHF -Dicontinue Lisinopril Right Heart Failure Moderate TR Pulmonary HTN? -Lasix prn DM II -RISS Anemia in chronic illness -Monitor H&H BPH with LUTS Urinary retention with BL hydronephrosis -Continue perez -Continue Flomax BID -Will need urology follow up Hospitalist note reviewed Case reviewed with the family and the patient
[2023-01-12 21:37] LABS: C.diff Antigen/Toxin Ag neg : Tox neg (NEG : NEG)
[2023-01-12] MEDS: LORAZEPAM 0.5 MG TABLET PO PRN (22:21)
[2023-01-13 05:25] LABS: Absolute Lymphocytes (CBC) 1.6 K/uL (0.7-4.9); Lymphocytes % 16.2 % (15.3-44.8); MCV 88.9 fL (80-100); MPV 6.7 fL (7.6-11.3); Platelets 190 thou/uL (152-406)
[2023-01-13 05:33] LABS: Albumin 2.6 g/dL (3.4-5.0); Phosphorus 2.6 mg/dL (2.5-4.9); Potassium 3.8 mEq/L (3.5-5.1)
[2023-01-13] MEDS: INSULIN REGULAR (HUMAN) 100 UNIT/ML SQ SCH ×4 (07:30→20:56)
[2023-01-13] MEDS: ARFORMOTEROL TARTRATE 15 MCG/2 ML VIAL.NEB NEB SCH (07:39)
[2023-01-13] MEDS: IPRATROPIUM BROM 0.5MG/2.5ML NEB SCH (08:00)
--- NOTE | 2023-01-13 08:57 | P.PN ---
Subjective Date of Service: 01/13/23 Chief Complaint: Pneumonia Patient is awake, alert and oriented x3 Patient denies pain or discomfort but continue SOB with mild exertion On oxygen via nasal cannula, voiced concerns about getting discharge too early Vital signs are stable No other acute findings Review of Systems 10-point ROS is otherwise unremarkable Physical Examination - Vital Signs Temperature: 98.3 F Blood Pressure: 95/57 Pulse: 95 Respirations: 20 Pulse Ox (%): 98 - Physical Exam General: Alert, Oriented x3 HEENT: Atraumatic, Normocephalic, PERRLA Neck: Supple, 2+ carotid pulse no bruit Respiratory: Expiratory wheezes (Bilateral expiratory wheezes, increased SOB with mild exertion), Rhonchi/gurgles Cardiovascular: No edema, Normal pulses Capillary refill: <2 Seconds Gastrointestinal: Normal bowel sounds, Soft and benign Musculoskeletal: No clubbing, No swelling Integumentary: No rashes, No breakdown Neurological: Normal speech, Normal tone, Normal affect Assessment And Plan - Current Problems (Diagnosis) (1) Severe sepsis with septic shock Current Visit: Yes Status: Acute (2) Acute kidney failure Current Visit: Yes Status: Acute (3) Afib Current Visit: Yes Status: Chronic (4) Hypotension Current Visit: Yes Status: Acute (5) Acute respiratory failure with hypoxia and hypercapnia Current Visit: No Status: Acute (6) Pneumonia Current Visit: No Status: Acute (7) Congestive heart failure (CHF) Current Visit: No Status: Chronic (8) T2DM (type 2 diabetes mellitus) Current Visit: No Status: Chronic - Plan (1) Severe sepsis with septic shock (4) Hypotension (5) Acute respiratory failure with hypoxia and hypercapnia (6) Pneumonia -Patient admitted with COPD exacerbation and frequent exacerbation terminal COPD -thrush improving - patient is on Daliresp physical therapy his prognosis is very poor -DC all antibiotic - continue with Diflucan and nystatin avoid inhaled steroids -Vital stable -Reporting increased weakness and fatigue. (2) Acute kidney failure stage 3 ckd PASTOR like secondary diuretic use, bladder outlet obstruction chronic uinary retention Acute,renal impairment, improving CT scan shows bilateral hydro nephrosis moderate We will insert Jeffers catheter to prevent obstruction and keep accurate and in and out Nephrology consult Dr. Merry Gabriel following, Jeffers to BSD per neph significantly since admission renal function is also now normal avoid diuretic Avoid NSAIDs (3) Afib Chronic rate controlled and anticoagulated with Eliquis Patient denies chest pain or palpitation We will continue the current management Acute on chronic urinary distress On oxygen, bronchodilators, antibiotics Pulmonology consult (7) Congestive heart failure (CHF) Chronic, last echo 12/22/2019 EF of 55% We will continue to monitor Low-sodium diet (8) Type Diabetes Mellitus Chronic, controlled on diet alone Sugar check before meals and at bedtime with a low-dose sliding scale of insulin We will check the A1c in the morning Syncope improved hypotension syncopal attack he is doing much better and is no evidence of pulmonary emboli left upper lobe atelectasis or pneumonia, white count has improved Blood cultures are negative changed to p.o. antibiotics CODE STATUSfull code Dietdiabetic DVT prophylaxisEliquis deconditioning PT consulted for weakness DC plan: 01/09 sister reports plan is to DC home w son w sitlakia, w home health/PT Full code diet cardiac Discharge Plan: Other (Rehab) Plan to discharge in: 24 Hours - Code Status/Comfort Care Code Status Assessed: Yes (Full code) Code Status: Full Code Physician Review: Patient Assessed, Agree with Above Assessment and Plan Critical Care: No Time Spent Managing PTS Care (In Minutes): 35 (minutes)
[2023-01-13] MEDS: POTASSIUM 25 MEQ EFFERV TAB PO SCH (09:00)
[2023-01-13] MEDS ORDERED: POTASSIUM CL SA 10 MEQ TAB PO ONE (09:00)
[2023-01-13] MEDS: ENSURE ENLIVE 237 ML CAN PO SCH ×2 (09:00→20:56)
[2023-01-13] MEDS: Fluticasone/Umeclidin/Vilanter [Trelegy Ellipta 100-62.5-25] Blst.W.Dev IH SCH (09:00)
[2023-01-13] MEDS: AMIODARONE HCL 200 MG TAB PO SCH ×2 (09:57→20:42)
[2023-01-13] MEDS: ROFLUMILAST 500 MCG TABLET PO SCH (09:57)
[2023-01-13] MEDS: SERTRALINE HCL 100 MG TAB PO SCH (09:58)
[2023-01-13] MEDS: TAMSULOSIN 0.4 MG SR CAP PO SCH ×2 (09:58→20:41)
[2023-01-13] MEDS: FLUCONAZOLE 100 MG TAB PO SCH (09:58)
[2023-01-13] MEDS: APIXABAN 2.5 MG TABLET PO SCH ×2 (09:59→20:42)
[2023-01-13] MEDS: predniSONE 10 MG TAB PO SCH (09:59)
[2023-01-13] MEDS: NYSTATIN 500,000 UNIT/5 ML UDC PO SCH ×2 (10:00→14:00)
[2023-01-13] MEDS: NICOTINE 21 MG/PAT TD SCH (10:01)
--- NOTE | 2023-01-13 13:39 | P.DS ---
Admission Date: 01/01/23 Discharge Date: 01/13/23 Reason for Admission: Pneumonia - Problems (1) Severe sepsis with septic shock Current Visit: Yes Status: Acute (2) Acute kidney failure Current Visit: Yes Status: Acute (3) Afib Current Visit: Yes Status: Chronic Qualifiers: Atrial fibrillation type: unspecified chronic Qualified Code(s): I48.20 - Chronic atrial fibrillation, unspecified; I48.2 - Chronic atrial fibrillation (4) Hypotension Current Visit: Yes Status: Acute (5) Acute respiratory failure with hypoxia and hypercapnia Current Visit: No Status: Acute (6) Pneumonia Current Visit: No Status: Acute Qualifiers: Pneumonia type: due to unspecified organism Laterality: right (7) Congestive heart failure (CHF) Current Visit: No Status: Chronic Qualifiers: Heart failure chronicity: unspecified (8) T2DM (type 2 diabetes mellitus) Current Visit: No Status: Chronic Qualifiers: 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 Patient reports he got up from the bed to the wheelchair to go to the restroom and passed out while in the wheelchair. Patient did not fall to the ground and has no injuries. Patient's son started cardiac compressions when the patient passed out and it woke the patient up. Patient reports that he feels very tired at this time states that he is short of breath with mild exertion. Patient denies chest pain or pressure. Patient denies abdominal pain, nausea, vomiting. Patient denies fever chills or weight loss. ED course Vital signs 78/40, pulse 106, respiration 18, pulse ox 95% on room air. A central line was placed to right internal jugular by the ED physician. Patient was started on Levophed infusion to maintain the blood pressure above 90 systolic after fluid resuscitation of 30 mill per KG sepsis bolus. Initial laboratory findings significant for leukocytosis WBC 23.6, renal impairment BUN 113, creatinine 2.09, GFR 33. Admitting the patient with a diagnosis of severe sepsis with septic shock, pneumonia, acute renal failure. Hospital Course: is a 72-year-old male with a history of COPD, diabetes mellitus not insulin dependent, hypertension, atrial fibrillation, asthma who was admitted to the [facility] on on 01/02/2023 with a diagnosis of severe sepsis with septic shock, pneumonia and acute renal failure Patient was admitted to the hospital, and treated with IV fluid, IV antibiotics, bronchodilators, steroids Patient is consulted to starchmaker and geospatial applications developer. Patient's condition improved. On 01/13/2020, patient was seen on morning rounds and deemed medically stable for discharge. Patient was discharged with instructions to schedule follow-up appo intments with PCP 3 to 5 days and geospatial applications developer in 4 weeks. <Neo Storey - Last Filed: 01/13/23 13:37> Admission Date: 01/01/23 Discharge Date: 01/14/23 Hospital Course: Pt seen and examined. I agree with the note by the TRANSPORT AIDE. he is medically stable for discharge to SNF <Dion Sharma - Last Filed: 01/14/23 17:31> Disposition: ROUTINE DISCHARGE Discharge Condition: FAIR Vital Signs/Physical Exam: Temp Pulse Resp BP Pulse Ox 97.9 F 83 24 H 98/51 L 96 01/13/23 12:00 01/13/23 12:00 01/13/23 12:00 01/13/23 12:00 01/13/23 12:00 General: Alert, Oriented x3 HEENT: Atraumatic, Normocephalic Neck: Supple, 2+ carotid pulse no bruit Respiratory: Normal air movement, Expiratory wheezes Cardiovascular: No edema, Normal pulses Capillary refill: <2 Seconds Gastrointestinal: Normal bowel sounds, Soft and benign Musculoskeletal: No clubbing, No swelling Integumentary: No rashes, No breakdown Neurological: Normal speech, Normal reflexes 2+ Laboratory Data at Discharge: WBC 10.10 thou/uL (4.3-10.9) 01/13/23 05:00 Hgb 10.3 g/dL (13.6-17.9) L 01/13/23 05:00 Hct 32.0 % (39.6-49.0) L 01/13/23 05:00 Plt Count 190 thou/uL (152-406) 01/13/23 05:00 PT 16.2 SECONDS (9.5-12.5) H 01/01/23 16:40 INR 1.47 01/01/23 16:40 APTT 31.9 SECONDS (24.3-36.9) 01/04/23 04:20 Sodium 140 mEq/L (136-145) 01/13/23 05:00 Potassium 3.8 mEq/L (3.5-5.1) 01/13/23 05:00 BUN 37 mg/dL (7-18) H 01/13/23 05:00 Creatinine 0.82 mg/dL (0.70-1.30) 01/13/23 05:00 Glucose 82 mg/dL (74-106) 01/13/23 05:00 Uric Acid 4.8 mg/dL (3.5-7.2) 01/10/23 03:50 Phosphorus 2.6 mg/dL (2.5-4.9) 01/13/23 05:00 Magnesium 2.4 mg/dL (1.6-2.4) 01/12/23 11:45 Total Bilirubin 0.4 mg/dL (0.2-1.0) 01/08/23 05:41 AST 16 U/L (15-37) 01/08/23 05:41 ALT 26 U/L (16-61) 01/08/23 05:41 Alkaline Phosphatase 76 U/L (45-117) 01/08/23 05:41 Triglycerides 108 mg/dL (<150) 01/03/23 04:13 Cholesterol 83 mg/dL (<200) 01/03/23 04:13 HDL Cholesterol 44 mg/dL (40-60) 01/03/23 04:13 Cholesterol/HDL Ratio 1.89 01/03/23 04:13 <Neo Storey - Last Filed: 01/13/23 13:37> Vital Signs/Physical Exam: Temp Pulse Resp BP Pulse Ox 96.9 F 79 20 108/56 L 95 01/14/23 16:00 01/14/23 16:00 01/14/23 16:00 01/14/23 16:00 01/14/23 16:00 Laboratory Data at Discharge: WBC 9.80 thou/uL (4.3-10.9) 01/14/23 05:05 Hgb 11.0 g/dL (13.6-17.9) L 01/14/23 05:05 Hct 33.5 % (39.6-49.0) L 01/14/23 05:05 Plt Count 157 thou/uL (152-406) 01/14/23 05:05 PT 16.2 SECONDS (9.5-12.5) H 01/01/23 16:40 INR 1.47 01/01/23 16:40 APTT 31.9 SECONDS (24.3-36.9) 01/04/23 04:20 Sodium 139 mEq/L (136-145) 01/14/23 05:05 Potassium 3.9 mEq/L (3.5-5.1) 01/14/23 05:05 BUN 33 mg/dL (7-18) H 01/14/23 05:05 Creatinine 0.85 mg/dL (0.70-1.30) 01/14/23 05:05 Glucose 76 mg/dL (74-106) 01/14/23 05:05 Uric Acid 4.8 mg/dL (3.5-7.2) 01/10/23 03:50 Phosphorus 2.6 mg/dL (2.5-4.9) 01/13/23 05:00 Magnesium 2.4 mg/dL (1.6-2.4) 01/12/23 11:45 Total Bilirubin 0.4 mg/dL (0.2-1.0) 01/08/23 05:41 AST 16 U/L (15-37) 01/08/23 05:41 ALT 26 U/L (16-61) 01/08/23 05:41 Alkaline Phosphatase 76 U/L (45-117) 01/08/23 05:41 Triglycerides 108 mg/dL (<150) 01/03/23 04:13 Cholesterol 83 mg/dL (<200) 01/03/23 04:13 HDL Cholesterol 44 mg/dL (40-60) 01/03/23 04:13 Cholesterol/HDL Ratio 1.89 01/03/23 04:13 <Dion Sharma - Last Filed: 01/14/23 17:31> Diet: Renal Activity: Ad ginna Time spent managing pt's care (in minutes): 55 (Minutes) <Neo Storey - Last Filed: 01/13/23 13:37> <Dion Sharma - Last Filed: 01/14/23 17:31> Home Medications: Simvastatin [Zocor*] 40 mg PO BEDTIME 05/13/13 Hydrocodone/Acetaminophen [[place] 5-325 Tablet] 1 each PO BIDP PRN 01/26/17 Triamterene/Hydrochlorothiazid [Triamterene-Hctz 37.5-25 mg Cp] 1 each PO DAILY 01/26/17 Albuterol Inhaler [Ventolin Inhaler*] 1 puff IN BID PRN 01/22/21 Metformin HCl 1,000 tab PO BID 01/22/21 Lisinopril [Zestril] 2.5 mg PO DAILY 05/28/21 Pregabalin [Lyrica] 25 mg PO BID 05/28/21 Albuterol Neb [Proventil 0.083% Neb Soln] 2.5 mg NEB [id number] #60 amp 05/29/21 Ipratropium Neb [Atrovent*] 0.5 mg NEB [id number] #60 amp 05/29/21 Nicotine [Nicotine Patch] 1 each TD DAILY 10/22/21 Benzonatate [Tessalon Perle*] 200 mg PO TID PRN #30 cap 12/09/21 predniSONE [Deltasone*] 10 mg PO T,TH,S 06/11/22 Amiodarone HCl [Cordarone*] 200 mg PO BID #60 tab 06/17/22 Apixaban [Eliquis *] 2.5 mg PO BID #60 tab 06/17/22 Fluconazole 100 mg PO DAILY 3 Days #3 tab 06/17/22 buPROPion HCL [Bupropion Xl] 150 mg PO DAILY 12/22/22 Arformoterol Tartrate [Brovana] 15 mcg NEB BIDRESP #60 vial.neb 12/31/22 Pregabalin [Lyrica*] 50 mg PO BID #60 cap 12/31/22 Sertraline [Zoloft*] 100 mg PO DAILY #30 tab 12/31/22 Umeclidinium Brm/Vilanterol Tr [Anoro Ellipta 62.5-25 Mcg INH] 1 each IH DAILY 30 Days #30 aero 01/09/23 Ensure Enlive 237 ml PO BID can 01/13/23 Loperamide HCl [Imodium A-D] 2 mg PO TID PRN 10 Days #15 tab 01/13/23 Mag Hydroxide 8% [Milk Of Magnesia*] 30 ml PO DAILYPRN PRN 01/13/23 Melatonin [Melatonin*] 3 mg PO BEDTIME PRN PRN 01/13/23 Mirtazapine [Remeron*] 7.5 mg PO BEDTIME tab 01/13/23 Nicotine [Nicoderm*] 21 mg TD DAILY 01/13/23 Tamsulosin [Flomax*] 0.4 mg PO BID cap 01/13/23 New Medications: Umeclidinium Brm/Vilanterol Tr [Anoro Ellipta 62.5-25 Mcg INH] 1 each IH DAILY 30 Days #30 aero Loperamide HCl [Imodium A-D] 2 mg PO TID PRN 10 Days #15 tab PRN Reason: Diarrhea Physician Discharge Instructions: is a 72-year-old male with a history of COPD, diabetes mellitus not insulin dependent, hypertension, atrial fibrillation, asthma who was admitted to the [facility] on on 01/02/2023 with a diagnosis of severe sepsis with septic shock, pneumonia and acute renal failure Patient was admitted to the hospital, and treated with IV fluid, IV antibiotics, bronchodilators, steroids Patient is consulted to starchmaker and geospatial applications developer. Patient's condition improved. On 01/13/2020, patient was seen on morning rounds and deemed medically stable for discharge. Patient was discharged with instructions to schedule follow-up appointments with PCP 3 to 5 days and geospatial applications developer in 4 weeks. Followup: Jay Caldwell MD [ACTIVE - CAN ADMIT] - Uri Maldonado DO [Primary Care Provider] - Ottoniel Jimenes [ACTIVE - CAN ADMIT] -
[2023-01-13] MEDS: ALBUTEROL 2.5 MG/3 ML NEB SOL NEB PRN (18:43)
[2023-01-13] MEDS: HYDROCODONE/APAP 5/325 MG TAB PO PRN (20:38)
[2023-01-13] MEDS: MIRTAZAPINE 15 MG TAB PO SCH (20:40)
[2023-01-13] MEDS: ATORVASTATIN 20 MG TAB PO SCH (20:42)
--- NOTE | 2023-01-13 20:49 | P.PN ---
Date of Service: 01/13/23 Vital Signs Temp Pulse Resp BP Pulse Ox 97.1 F 83 18 109/53 L 96 01/13/23 16:00 01/13/23 16:00 01/13/23 20:38 01/13/23 16:00 01/13/23 20:38 Medications Acetaminophen (Acetaminophen 500 Mg Tab) 500 mg PO Q4HP PRN PRN Reason: Pain scale 2-4 (Mild) Hydrocodone Bitart/Acetaminophen (Hydrocodone/Apap 5/325 Mg Tab) 1 tab PO Q4H PRN PRN Reason: Pain scale 5-7 (Moderate) Last Admin: 01/13/23 20:38 Dose: 1 tab Albuterol Sulfate (Albuterol 2.5 Mg/3 Ml Neb Irene) 2.5 mg NEB [id number] PRN PRN Reason: SHORTNESS OF BREATH Last Admin: 01/13/23 18:43 Dose: 2.5 mg Amiodarone HCl (Amiodarone Hcl 200 Mg Tab) 200 mg PO BID [facility] Last Admin: 01/13/23 20:42 Dose: 200 mg Apixaban (Apixaban 2.5 Mg Tablet) 2.5 mg PO BID [facility] Last Admin: 01/13/23 20:42 Dose: 2.5 mg Atorvastatin Calcium (Atorvastatin 20 Mg Tab) 20 mg PO BEDTIME [facility] Last Admin: 01/13/23 20:42 Dose: 20 mg Benzonatate (Benzonatate 100 Mg Cap) 200 mg PO TID PRN PRN Reason: COUGH Last Admin: 01/08/23 20:49 Dose: 200 mg Fluconazole (Fluconazole 100 Mg Tab) 200 mg PO DAILY MARK; Protocol Last Admin: 01/13/23 09:58 Dose: 200 mg Glucagon (Glucagon 1 Mg/Vial) 1 mg IM 1X PRN; Protocol PRN Reason: HYPOGLYCEMIA Home Med (Fluticasone/Umeclidin/Vilanter [Trelegy Ellipta 100-62.5-25]) 1 puff IH DAILY [facility] Last Admin: 01/13/23 09:00 Dose: Not Given Dextrose (Dextrose 10% Water Iv Soln.) 125 mls @ 0 mls/hr IV .Q0M PRN PRN Reason: HYPOGLYCEMIA Insulin Human Regular (Insulin Regular (Human) 100 Unit/Ml) 0 unit SQ ACHS MARK; Protocol Last Admin: 01/13/23 16:19 Dose: Not Given Loperamide HCl (Loperamide Hcl 2 Mg Capsule) 2 mg PO Q4H PRN PRN Reason: DIARRHEA Lorazepam (Lorazepam 0.5 Mg Tablet) 0.5 mg PO Q6H PRN PRN Reason: ANXIETY Last Admin: 01/12/23 22:21 Dose: 0.5 mg Magnesium Hydroxide (Magnesium Hydroxide 8% 30 Ml) 30 ml PO DAILYPRN PRN PRN Reason: CONSTIPATION Melatonin (Melatonin 3 Mg Tablet) 3 mg PO BEDTIME PRN PRN PRN Reason: INSOMNIA Last Admin: 01/11/23 20:36 Dose: 3 mg Mirtazapine (Mirtazapine 15 Mg Tab) 7.5 mg PO BEDTIME [facility] Last Admin: 01/13/23 20:40 Dose: 7.5 mg Nicotine (Nicotine 21 Mg/Pat) 21 mg TD DAILY [facility] Last Admin: 01/13/23 10:01 Dose: 21 mg Nutritional Formula (Ensure Enlive 237 Ml Can) 237 ml PO BID [facility] Last Admin: 01/13/23 09:00 Dose: Not Given Ondansetron HCl (Ondansetron 4 Mg/2 Ml Vial) 4 mg IV Q6HP PRN PRN Reason: NAUSEA / VOMITING Last Admin: 01/10/23 09:02 Dose: 4 mg Potassium Bicarbonate (Potassium 25 Meq Efferv Tab) 25 meq PO DAILY [facility] Last Admin: 01/13/23 09:00 Dose: Not Given Prednisone (Prednisone 10 Mg Tab) 10 mg PO DAILY [facility] Last Admin: 01/13/23 09:59 Dose: 10 mg Roflumilast (Roflumilast 500 Mcg Tablet) 500 mcg PO DAILY [facility] Last Admin: 01/13/23 09:57 Dose: 500 mcg Sertraline HCl (Sertraline Hcl 100 Mg Tab) 100 mg PO DAILY [facility] Last Admin: 01/13/23 09:58 Dose: 100 mg Tamsulosin HCl (Tamsulosin 0.4 Mg Sr Cap) 0.4 mg PO BID [facility] Last Admin: 01/13/23 20:41 Dose: 0.4 mg Microbiology Results 01/01/23 19:00 Blood - Blood Aerobic Blood Culture - Final No growth in 5 days. 01/01/23 19:00 Blood - Blood Anaerobic Blood Culture - Final No growth in 5 days. 01/01/23 18:00 Blood - Blood Aerobic Blood Culture - Final No growth in 5 days. 01/01/23 18:00 Blood - Blood Anaerobic Blood Culture - Final No growth in 5 days. Assessment/ Plan: Nephrology No dyspnea No chest pain Persistent weakness and fatigue Productive cough No acute events overnight Vitals, medications, blood work and imaging reviewed in the chart. NAD. NCAT. MMM. Neck supple. Normal respiratory effort. RRR. Abd ND. No C/C. LE Edema none. No rash. AAO. Normal speech. Perez EXAM DESCRIPTION: CT - Chest Abd Pelvis Wo Con - 01/01/2023 10:19 pm CLINICAL HISTORY: Shortness of breath and sepsis COMPARISON: December 21, 2022 CT chest TECHNIQUE: Computed axial tomography of the chest, abdomen and pelvis was obtained. Oral contrast was given. IV contrast was not requested. All CT scans are performed using dose optimization technique as appropriate and may include automated exposure control or mA/KV adjustment according to patient size. FINDINGS: The evaluation of mediastinum, casey, vessels and solid organs is limited secondary to the lack of IV contrast administration [id number] tree-in-bud opacities right lower lobe have improved since the prior CT chest. The additional bilateral tree-in-bud opacities have mostly resolved. COPD Air trapping left anterior lung base 3.6 centimeter lobulated right infrahilar mass has mostly resolved No mediastinal or hilar lymphadenopathy is seen. A pleural effusion is not present. A pericardial effusion is not seen. Prominent central pulmonary arteries may indicate pulmonary arterial hypertension. Coronary arterial calcifications. The liver, spleen, pancreas, and adrenals appear grossly normal Moderate bilateral hydronephrosis and hydroureter is. Marked bladder distention. There is no evidence of diverticulitis. Cholelithiasis without evidence of cholecystitis Spondylosis lumbar spine resulting in spinal stenosis Small left inguinal hernia IMPRESSION: [id number] tree-in-bud opacities right lower lobe have improved probably indicating an atypical infection 3.6 centimeter lobulated right infrahilar mass has mostly resolved which probably was infectious COPD Moderate bilateral hydronephrosis presumably related to the marked bladder distention Cholelithiasis without evidence of cholecystitis EXAM DESCRIPTION: US - Renal Ultrasound-Complete - 01/04/2023 2:22 am CLINICAL HISTORY: Eval for on going hydronephrosis, bladder distenti COMPARISON: Renal Ultrasound-Complete dated 03/11/2020; Chest Abd Pelvis Wo Con dated 01/01/2023 FINDINGS: Both kidneys are normal in size, shape and echotexture. The right kidney measures 10.3 x 5.6 x 5.5 cm. Mild hydronephrosis. The left kidney measures 10.3 x 7.5 x 4.9 cm. Mild hydronephrosis. Marked urinary bladder distention with debris present. IMPRESSION: Marked urinary bladder distention containing debris with mild bilateral hydronephrosis. Finding suggests bladder outlet obstruction is present. LEFT VENTRICULAR WALL MOTION: NORMAL DOPPLER/COLOR FLOW: COMMENTS: 1. SEVERELY DILATED RIGHT ATRIUM 2. MODERATELY DILATED RIGHT VENTRICLE. MODERATELY REDUCED FUNCTION 3. LEFT VENTRICULAR EJECTION FRACTION 55% 4. MODERATE TRICUSPID REGURGITATION A/P Stage II PASTOR in the setting of hypotension & bladder outlet obstruction, resolved -No NSAIDs Hypokalemia -Potassium supplementation once daily Hypophosphatemia -Encourage nutrition -Replete prn HTN with CKD/ CHF -Dicontinue Lisinopril Right Heart Failure Moderate TR Pulmonary HTN? -Lasix prn DM II -RISS Anemia in chronic illness -Monitor H&H BPH with LUTS Urinary retention with BL hydronephrosis -Continue perez -Continue Flomax BID -Will need urology follow up Hospitalist note reviewed
[2023-01-13] MEDS: LOPERAMIDE HCL 2 MG CAPSULE PO PRN (20:50)
[2023-01-13] MEDS: LORAZEPAM 0.5 MG TABLET PO PRN (23:24)
[2023-01-14 05:33] LABS: Absolute Lymphocytes (CBC) 1.2 K/uL (0.7-4.9); Hematocrit 33.5 % (39.6-49.0); Lymphocytes % 11.8 % (15.3-44.8); MCV 88.6 fL (80-100); MPV 6.8 fL (7.6-11.3); Platelets 157 thou/uL (152-406); RBC Red Blood Cell Count 3.78 M/uL (4.33-5.43)
[2023-01-14 05:57] LABS: Potassium 3.9 mEq/L (3.5-5.1)
[2023-01-14] MEDS: Fluticasone/Umeclidin/Vilanter [Trelegy Ellipta 100-62.5-25] Blst.W.Dev IH SCH (09:00)
[2023-01-14] MEDS ORDERED: POTASSIUM CL SA 10 MEQ TAB PO ONE (09:00)
[2023-01-14] MEDS ORDERED: MAGNESIUM HYDROXIDE 8% 30 ML PO PRN (11:23)
[2023-01-14] MEDS ORDERED: ACETAMINOPHEN 500 MG TAB PO PRN (11:23)
[2023-01-14] MEDS ORDERED: GLUCAGON 1 MG/VIAL IM PRN (11:24)
[2023-01-14] MEDS ORDERED: D10W 125 ML IV PRN (11:24)
[2023-01-14] MEDS ORDERED: ONDANSETRON 4 MG/2 ML VIAL IV PRN (11:24)
[2023-01-14] MEDS ORDERED: ALBUTEROL 2.5 MG/3 ML NEB SOL NEB PRN (11:25)
[2023-01-14] MEDS ORDERED: MELATONIN 3 MG TABLET PO PRN (11:27)
[2023-01-14] MEDS ORDERED: BENZONATATE 100 MG CAP PO PRN (11:27)
[2023-01-14] MEDS ORDERED: LORAZEPAM 0.5 MG TABLET PO PRN (11:28)
[2023-01-14] MEDS: INSULIN REGULAR (HUMAN) 100 UNIT/ML SQ SCH ×3 (11:30→21:00)
[2023-01-14] MEDS: ENSURE ENLIVE 237 ML CAN PO SCH ×2 (11:34→21:00)
--- NOTE | 2023-01-14 16:21 | P.HP ---
Date of Service: 01/14/23 Subjective Chief Complaint: Pneumonia Patient is awake, alert and oriented x3 Patient denies pain or discomfort but continue SOB with mild exertion On oxygen via nasal cannula, voiced concerns about getting discharge too early Vital signs are stable No other acute findings Review of Systems 10-point ROS is otherwise unremarkable Physical Examination - Vital Signs Temperature: 98.3 F Blood Pressure: 95/57 Pulse: 95 Respirations: 20 Pulse Ox (%): 98 - Physical Exam General: Alert, Oriented x3 HEENT: Atraumatic, Normocephalic, PERRLA Neck: Supple, 2+ carotid pulse no bruit Respiratory: Expiratory wheezes (Bilateral expiratory wheezes, increased SOB with mild exertion), Rhonchi/gurgles Cardiovascular: No edema, Normal pulses Capillary refill: <2 Seconds Gastrointestinal: Normal bowel sounds, Soft and benign Musculoskeletal: No clubbing, No swelling Integumentary: No rashes, No breakdown Neurological: Normal speech, Normal tone, Normal affect Assessment And Plan - Current Problems (Diagnosis) (1) Severe sepsis with septic shock (2) Acute kidney failure (3) Afib (4) Hypotension (5) Acute respiratory failure with hypoxia and hypercapnia (6) Pneumonia (7) Congestive heart failure (CHF) (8) T2DM (type 2 diabetes mellitus) - Plan (1) Severe sepsis with septic shock (4) Hypotension (5) Acute respiratory failure with hypoxia and hypercapnia (6) Pneumonia -Patient admitted with COPD exacerbation and frequent exacerbation terminal COPD -thrush improving - patient is on Daliresp physical therapy his prognosis is very poor -DC all antibiotic - continue with Diflucan and nystatin avoid inhaled steroids -Vital stable -Reporting increased weakness and fatigue. (2) Acute kidney failure stage 3 ckd PASTOR like secondary diuretic use, bladder outlet obstruction chronic uinary retention Acute,renal impairment, improving CT scan shows bilateral hydro nephrosis moderate We will insert Jeffers catheter to prevent obstruction and keep accurate and in and out Nephrology consult Dr. Sousa Neph following, Jeffers to BSD per neph significantly since admission renal function is also now normal avoid diuretic Avoid NSAIDs (3) Afib Chronic rate controlled and anticoagulated with Eliquis Patient denies chest pain or palpitation We will continue the current management Acute on chronic urinary distress On oxygen, bronchodilators, antibiotics Pulmonology consult (7) Congestive heart failure (CHF) Chronic, last echo 12/22/2019 EF of 55% We will continue to monitor Low-sodium diet (8) Type Diabetes Mellitus Chronic, controlled on diet alone Sugar check before meals and at bedtime with a low-dose sliding scale of insulin We will check the A1c in the morning Syncope improved hypotension syncopal attack he is doing much better and is no evidence of pulmonary emboli left upper lobe atelectasis or pneumonia, white count has improved Blood cultures are negative changed to p.o. antibiotics Deconditioning PT consulted for weakness CODE STATUSfull code Dietdiabetic DVT prophylaxisEliquis D/c planning pending to SNF <Neo Storey - Last Filed: 01/14/23 16:18> Pt seen and examined. I agree with the note by the CHARGING MANIPULATOR. <Dion Sharma - Last Filed: 01/15/23 16:25>
[2023-01-14] MEDS: LOPERAMIDE HCL 2 MG CAPSULE PO PRN (19:39)
[2023-01-14] MEDS ORDERED: MIRTAZAPINE 15 MG TAB PO SCH (21:00)
[2023-01-14] MEDS ORDERED: ATORVASTATIN 20 MG TAB PO SCH (21:00)
[2023-01-14] MEDS: TAMSULOSIN 0.4 MG SR CAP PO SCH (21:43)
[2023-01-14] MEDS: AMIODARONE HCL 200 MG TAB PO SCH (21:43)
[2023-01-14] MEDS: APIXABAN 2.5 MG TABLET PO SCH (21:43)
--- NOTE | 2023-01-14 22:39 | P.PN ---
Date of Service: 01/14/23 Vital Signs Temp Pulse Resp BP Pulse Ox 97.6 F 82 17 108/62 98 01/14/23 20:00 01/14/23 20:00 01/14/23 20:00 01/14/23 20:00 01/14/23 20:00 Medications Acetaminophen (Acetaminophen 500 Mg Tab) 500 mg PO Q4HP PRN PRN Reason: Pain scale 2-4 (Mild) Albuterol Sulfate (Albuterol 2.5 Mg/3 Ml Neb Irene) 2.5 mg NEB [id number] PRN PRN Reason: SHORTNESS OF BREATH Amiodarone HCl (Amiodarone Hcl 200 Mg Tab) 200 mg PO BID [facility] Last Admin: 01/14/23 21:43 Dose: 200 mg Apixaban (Apixaban 2.5 Mg Tablet) 2.5 mg PO BID MARK Last Admin: 01/14/23 21:43 Dose: 2.5 mg Atorvastatin Calcium (Atorvastatin 20 Mg Tab) 20 mg PO BEDTIME MARK Last Admin: 01/14/23 21:45 Dose: 20 mg Benzonatate (Benzonatate 100 Mg Cap) 200 mg PO TID PRN PRN Reason: COUGH Fluconazole (Fluconazole 100 Mg Tab) 200 mg PO DAILY MARK; Protocol Glucagon (Glucagon 1 Mg/Vial) 1 mg IM 1X PRN; Protocol PRN Reason: HYPOGLYCEMIA Home Med (Fluticasone/Umeclidin/Vilanter [Trelegy Ellipta 100-62.5-25]) 1 puff IH DAILY [facility] Last Admin: 01/13/23 09:00 Dose: Not Given Dextrose (Dextrose 10% Water Iv Soln.) 125 mls @ 0 mls/hr IV .Q0M PRN PRN Reason: HYPOGLYCEMIA Insulin Human Regular (Insulin Regular (Human) 100 Unit/Ml) 0 unit SQ ACHS MARK; Protocol Last Admin: 01/14/23 16:30 Dose: Not Given Loperamide HCl (Loperamide Hcl 2 Mg Capsule) 2 mg PO Q4H PRN PRN Reason: DIARRHEA Last Admin: 01/14/23 19:39 Dose: 2 mg Lorazepam (Lorazepam 0.5 Mg Tablet) 0.5 mg PO Q6H PRN PRN Reason: ANXIETY Magnesium Hydroxide (Magnesium Hydroxide 8% 30 Ml) 30 ml PO DAILYPRN PRN PRN Reason: CONSTIPATION Melatonin (Melatonin 3 Mg Tablet) 3 mg PO BEDTIME PRN PRN PRN Reason: INSOMNIA Mirtazapine (Mirtazapine 15 Mg Tab) 7.5 mg PO BEDTIME [facility] Last Admin: 01/14/23 21:44 Dose: 7.5 mg Nicotine (Nicotine 21 Mg/Pat) 21 mg TD DAILY [facility] Nutritional Formula (Ensure Enlive 237 Ml Can) 237 ml PO BID [facility] Last Admin: 01/14/23 21:00 Dose: Not Given Ondansetron HCl (Ondansetron 4 Mg/2 Ml Vial) 4 mg IV Q6HP PRN PRN Reason: NAUSEA / VOMITING Potassium Bicarbonate (Potassium 25 Meq Efferv Tab) 25 meq PO DAILY [facility] Prednisone (Prednisone 10 Mg Tab) 10 mg PO DAILY [facility] Roflumilast (Roflumilast 500 Mcg Tablet) 500 mcg PO DAILY [facility] Sertraline HCl (Sertraline Hcl 100 Mg Tab) 100 mg PO DAILY [facility] Tamsulosin HCl (Tamsulosin 0.4 Mg Sr Cap) 0.4 mg PO BID [facility] Last Admin: 01/14/23 21:43 Dose: 0.4 mg Microbiology Results 01/01/23 19:00 Blood - Blood Aerobic Blood Culture - Final No growth in 5 days. 01/01/23 19:00 Blood - Blood Anaerobic Blood Culture - Final No growth in 5 days. 01/01/23 18:00 Blood - Blood Aerobic Blood Culture - Final No growth in 5 days. 01/01/23 18:00 Blood - Blood Anaerobic Blood Culture - Final No growth in 5 days. Assessment/ Plan: Nephrology No dyspnea No chest pain Persistent weakness and fatigue Productive cough No acute events overnight Vitals, medications, blood work and imaging reviewed in the chart. NAD. NCAT. MMM. Neck supple. Normal respiratory effort. RRR. Abd ND. No C/C. LE Edema none. No rash. AAO. Normal speech. Perez EXAM DESCRIPTION: CT - Chest Abd Pelvis Wo Con - 01/01/2023 10:19 pm CLINICAL HISTORY: Shortness of breath and sepsis COMPARISON: December 21, 2022 CT chest TECHNIQUE: Computed axial tomography of the chest, abdomen and pelvis was obtained. Oral contrast was given. IV contrast was not requested. All CT scans are performed using dose optimization technique as appropriate and may include automated exposure control or mA/KV adjustment according to patient size. FINDINGS: The evaluation of mediastinum, casey, vessels and solid organs is limited secondary to the lack of IV contrast administration [id number] tree-in-bud opacities right lower lobe have improved since the prior CT chest. The additional bilateral tree-in-bud opacities have mostly resolved. COPD Air trapping left anterior lung base 3.6 centimeter lobulated right infrahilar mass has mostly resolved No mediastinal or hilar lymphadenopathy is seen. A pleural effusion is not present. A pericardial effusion is not seen. Prominent central pulmonary arteries may indicate pulmonary arterial hypertension. Coronary arterial calcifications. The liver, spleen, pancreas, and adrenals appear grossly normal Moderate bilateral hydronephrosis and hydroureter is. Marked bladder distention. There is no evidence of diverticulitis. Cholelithiasis without evidence of cholecystitis Spondylosis lumbar spine resulting in spinal stenosis Small left inguinal hernia IMPRESSION: [id number] tree-in-bud opacities right lower lobe have improved probably indicating an atypical infection 3.6 centimeter lobulated right infrahilar mass has mostly resolved which probably was infectious COPD Moderate bilateral hydronephrosis presumably related to the marked bladder distention Cholelithiasis without evidence of cholecystitis EXAM DESCRIPTION: US - Renal Ultrasound-Complete - 01/04/2023 2:22 am CLINICAL HISTORY: Eval for on going hydronephrosis, bladder distenti COMPARISON: Renal Ultrasound-Complete dated 03/11/2020; Chest Abd Pelvis Wo Con dated 01/01/2023 FINDINGS: Both kidneys are normal in size, shape and echotexture. The right kidney measures 10.3 x 5.6 x 5.5 cm. Mild hydronephrosis. The left kidney measures 10.3 x 7.5 x 4.9 cm. Mild hydronephrosis. Marked urinary bladder distention with debris present. IMPRESSION: Marked urinary bladder distention containing debris with mild bilateral hydronephrosis. Finding suggests bladder outlet obstruction is present. LEFT VENTRICULAR WALL MOTION: NORMAL DOPPLER/COLOR FLOW: COMMENTS: 1. SEVERELY DILATED RIGHT ATRIUM 2. MODERATELY DILATED RIGHT VENTRICLE. MODERATELY REDUCED FUNCTION 3. LEFT VENTRICULAR EJECTION FRACTION 55% 4. MODERATE TRICUSPID REGURGITATION A/P Stage II PASTOR in the setting of hypotension & bladder outlet obstruction, resolved -No NSAIDs Hypokalemia -Potassium supplementation once daily Hypophosphatemia -Encourage nutrition -Replete prn HTN with CKD/ CHF -Monitor BP Right Heart Failure Moderate TR Pulmonary HTN? -Lasix prn DM II -RISS Anemia in chronic illness -Monitor H&H BPH with LUTS Urinary retention with BL hydronephrosis -Continue perez -Continue Flomax BID -Will need urology follow up Hospitalist note reviewed
[2023-01-15] MEDS: INSULIN REGULAR (HUMAN) 100 UNIT/ML SQ SCH ×2 (07:30→11:30)
[2023-01-15] MEDS ORDERED: NICOTINE 21 MG/PAT TD SCH (09:00)
[2023-01-15] MEDS: ENSURE ENLIVE 237 ML CAN PO SCH (09:00)
[2023-01-15] MEDS ORDERED: SERTRALINE HCL 100 MG TAB PO SCH (09:00)
[2023-01-15] MEDS ORDERED: FLUCONAZOLE 100 MG TAB PO SCH (09:00)
[2023-01-15] MEDS ORDERED: predniSONE 10 MG TAB PO SCH (09:00)
[2023-01-15] MEDS ORDERED: ROFLUMILAST 500 MCG TABLET PO SCH (09:00)
[2023-01-15] MEDS ORDERED: POTASSIUM 25 MEQ EFFERV TAB PO SCH (09:00)
[2023-01-15] MEDS: Fluticasone/Umeclidin/Vilanter [Trelegy Ellipta 100-62.5-25] Blst.W.Dev IH SCH (09:00)
[2023-01-15] MEDS: TAMSULOSIN 0.4 MG SR CAP PO SCH (10:19)
[2023-01-15] MEDS: AMIODARONE HCL 200 MG TAB PO SCH (10:20)
[2023-01-15] MEDS: APIXABAN 2.5 MG TABLET PO SCH (10:21)
[2023-01-15] MEDS ORDERED: POTASSIUM 25 MEQ EFFERV TAB PO ONE (11:03)
[2023-01-15] MEDS ORDERED: CALCIUM CARB 500MG/VIT D 200 IU TAB PO SCH (11:30)
[2023-01-15] MEDS ORDERED: CALCIUM GLUCONATE 1 GM IVPB 1 GM/50 ML BAG IV ONE (11:45)
[2023-01-15] MEDS ORDERED: POTASSIUM CL 40 MEQ in NA CHLORIDE 0.9% 500 ML IV SCH (12:00)
[2023-01-15 12:01] VITALS: TEMP 97
--- NOTE | 2023-01-15 15:02 | P.DS ---
Admission Date: 01/01/23 Discharge Date: 01/15/23 Reason for Admission: Pneumonia - Problems (1) Severe sepsis with septic shock Current Visit: Yes Status: Acute (2) Acute kidney failure Current Visit: Yes Status: Acute (3) Afib Current Visit: Yes Status: Chronic Qualifiers: Atrial fibrillation type: unspecified chronic Qualified Code(s): I48.20 - Chronic atrial fibrillation, unspecified; I48.2 - Chronic atrial fibrillation (4) Hypotension Current Visit: Yes Status: Acute (5) Acute respiratory failure with hypoxia and hypercapnia Current Visit: No Status: Acute (6) Pneumonia Current Visit: No Status: Acute Qualifiers: Pneumonia type: due to unspecified organism Laterality: right (7) Congestive heart failure (CHF) Current Visit: No Status: Chronic Qualifiers: Heart failure chronicity: unspecified (8) T2DM (type 2 diabetes mellitus) Current Visit: No Status: Chronic Qualifiers: Diabetes mellitus community reinvestment act officer insulin use: without penitentiary use Diabetes mellitus complication status: with hyperglycemia Qualified Code(s): E11.65 - Type 2 diabetes mellitus with hyperglycemia Brief History of Present Illness: Brief History of Present Illness: is a 72-year-old male with a history of COPD, diabetes mellitus not insulin dependent, hypertension, atrial fibrillation, asthma present to emergency room via the unassigned with complaints of syncope. Patient reports he got up from the bed to the wheelchair to go to the restroom and passed out wh ile in the wheelchair. Patient did not fall to the ground and has no injuries. Patient's son started cardiac compressions when the patient passed out and it woke the patient up. Patient reports that he feels very tired at this time states that he is short of breath with mild exertion. Patient denies chest pain or pressure. Patient denies abdominal pain, nausea, vomiting. Patient denies fever chills or weight loss. ED course Vital signs 78/40, pulse 106, respiration 18, pulse ox 95% on room air. A central line was placed to right internal jugular by the ED physician. Patient was started on Levophed infusion to maintain the blood pressure above 90 systolic after fluid resuscitation of 30 mill per KG sepsis bolus. Initial laboratory findings significant for leukocytosis WBC 23.6, renal impairment BUN 113, creatinine 2.09, GFR 33. Admitting the patient with a diagnosis of severe sepsis with septic shock, pneumonia, acute renal failure. . Hospital Course: Hospital Course: is a 72-year-old male with a history of COPD, diabetes mellitus not insulin dependent, hypertension, atrial fibrillation, asthma who was admitted to the [facility] on on 01/02/2023 with a diagnosis of severe sepsis with septic shock, pneumonia and acute renal failure Patient was admitted to the hospital, and treated with IV fluid, IV antibiotics, bronchodilators, steroids Patient is consulted to adjunct instructor of women's studies and living coach. Patient's condition improved. On 01/13/2020, patient was seen on morning rounds and deemed medically stable for discharge. Patient was discharged with instructions to schedule follow-up appointments with PCP 3 to 5 days and living coach in 4 weeks. <Neo Storey - Last Filed: 01/15/23 15:00> Admission Date: 01/01/23 Discharge Date: 01/15/23 Hospital Course: Pt seen and examined. I agree with with the note by the LATCHER. Pt was admitted for septic shock 2/2 pneumonia and acute renal failure. We treated her with iv abx, duoneb, steroid and IVF. His medical condition improved and pt was discharged to SNF. He was advised to follow up with urology for urinary retention. He was discharged with perez catheter. <Dion Sharma - Last Filed: 01/15/23 16:23> Disposition: ROUTINE DISCHARGE Discharge Condition: FAIR Vital Signs/Physical Exam: Temp Pulse Resp BP Pulse Ox 97.0 F 73 16 121/55 L 95 01/15/23 12:00 01/15/23 12:00 01/15/23 12:00 01/15/23 12:00 01/15/23 12:00 General: Alert HEENT: Atraumatic, Normocephalic Neck: Supple, 2+ carotid pulse no bruit Cardiovascular: No edema, Normal pulses Capillary refill: <2 Seconds Gastrointestinal: Normal bowel sounds, Soft and benign Musculoskeletal: No clubbing, No swelling Integumentary: No rashes, No breakdown Neurological: Normal gait, Normal speech Laboratory Data at Discharge: WBC 9.80 thou/uL (4.3-10.9) 01/14/23 05:05 Hgb 11.0 g/dL (13.6-17.9) L 12/07/23 05:05 Hct 33.5 % (39.6-49.0) L 01/14/23 05:05 Plt Count 157 thou/uL (152-406) 01/14/23 05:05 PT 16.2 SECONDS (9.5-12.5) H 01/01/23 16:40 INR 1.47 01/01/23 16:40 APTT 31.9 SECONDS (24.3-36.9) 01/04/23 04:20 Sodium 140 mEq/L (136-145) 01/15/23 07:55 Potassium 3.0 mEq/L (3.5-5.1) L D 01/15/23 07:55 BUN 26 mg/dL (7-18) H 01/15/23 07:55 Creatinine 0.54 mg/dL (0.70-1.30) L 01/15/23 07:55 Glucose 62 mg/dL (74-106) L 01/15/23 07:55 Uric Acid 4.8 mg/dL (3.5-7.2) 01/10/23 03:50 Phosphorus 2.6 mg/dL (2.5-4.9) 01/13/23 05:00 Magnesium 2.4 mg/dL (1.6-2.4) 01/12/23 11:45 Total Bilirubin 0.4 mg/dL (0.2-1.0) 01/08/23 05:41 AST 16 U/L (15-37) 01/08/23 05:41 ALT 26 U/L (16-61) 01/08/23 05:41 Alkaline Phosphatase 76 U/L (45-117) 01/08/23 05:41 Triglycerides 108 mg/dL (<150) 01/03/23 04:13 Cholesterol 83 mg/dL (<200) 01/03/23 04:13 HDL Cholesterol 44 mg/dL (40-60) 01/03/23 04:13 Cholesterol/HDL Ratio 1.89 01/03/23 04:13 <Neo Storey - Last Filed: 01/15/23 15:00> Vital Signs/Physical Exam: Temp Pulse Resp BP Pulse Ox 97.0 F 73 16 121/55 L 95 01/15/23 12:00 01/15/23 12:00 01/15/23 12:00 01/15/23 12:00 01/15/23 12:00 Laboratory Data at Discharge: WBC 9.80 thou/uL (4.3-10.9) 01/14/23 05:05 Hgb 11.0 g/dL (13.6-17.9) L 01/14/23 05:05 Hct 33.5 % (39.6-49.0) L 01/14/23 05:05 Plt Count 157 thou/uL (152-406) 01/14/23 05:05 PT 16.2 SECONDS (9.5-12.5) H 01/01/23 16:40 INR 1.47 01/01/23 16:40 APTT 31.9 SECONDS (24.3-36.9) 01/04/23 04:20 Sodium 140 mEq/L (136-145) 01/15/23 07:55 Potassium 3.0 mEq/L (3.5-5.1) L D 01/15/23 07:55 BUN 26 mg/dL (7-18) H 01/15/23 07:55 Creatinine 0.54 mg/dL (0.70-1.30) L 01/15/23 07:55 Glucose 62 mg/dL (74-106) L 01/15/23 07:55 Uric Acid 4.8 mg/dL (3.5-7.2) 01/10/23 03:50 Phosphorus 2.6 mg/dL (2.5-4.9) 01/13/23 05:00 Magnesium 2.4 mg/dL (1.6-2.4) 01/12/23 11:45 Total Bilirubin 0.4 mg/dL (0.2-1.0) 01/08/23 05:41 AST 16 U/L (15-37) 01/08/23 05:41 ALT 26 U/L (16-61) 01/08/23 05:41 Alkaline Phosphatase 76 U/L (45-117) 01/08/23 05:41 Triglycerides 108 mg/dL (<150) 01/03/23 04:13 Cholesterol 83 mg/dL (<200) 01/03/23 04:13 HDL Cholesterol 44 mg/dL (40-60) 01/03/23 04:13 Cholesterol/HDL Ratio 1.89 01/03/23 04:13 <Dion Sharma - Last Filed: 01/15/23 16:23> Diet: Renal Activity: Ad ginna <Neo Storey - Last Filed: 01/15/23 15:00> <Dion Sharma - Last Filed: 01/15/23 16:23> Home Medications: Simvastatin [Zocor*] 40 mg PO BEDTIME 05/13/13 Hydrocodone/Acetaminophen [[place] 5-325 Tablet] 1 each PO BIDP PRN 01/26/17 Triamterene/Hydrochlorothiazid [Triamterene-Hctz 37.5-25 mg Cp] 1 each PO DAILY 01/26/17 Albuterol Inhaler [Ventolin Inhaler*] 1 puff IN BID PRN 01/22/21 Metformin HCl 1,000 tab PO BID 01/22/21 Lisinopril [Zestril] 2.5 mg PO DAILY 05/28/21 Pregabalin [Lyrica] 25 mg PO BID 05/28/21 Albuterol Neb [Proventil 0.083% Neb Soln] 2.5 mg NEB [id number] #60 amp 05/29/21 Ipratropium Neb [Atrovent*] 0.5 mg NEB [id number] #60 amp 05/29/21 Nicotine [Nicotine Patch] 1 each TD DAILY 10/22/21 Benzonatate [Tessalon Perle*] 200 mg PO TID PRN #30 cap 12/09/21 predniSONE [Deltasone*] 10 mg PO T,,S 06/11/22 Amiodarone HCl [Cordarone*] 200 mg PO BID #60 tab 06/17/22 Apixaban [Eliquis *] 2.5 mg PO BID #60 tab 06/17/22 Fluconazole 100 mg PO DAILY 3 Days #3 tab 06/17/22 buPROPion HCL [Bupropion Xl] 150 mg PO DAILY 12/22/22 Arformoterol Tartrate [Brovana] 15 mcg NEB BIDRESP #60 vial.neb 12/31/22 Pregabalin [Lyrica*] 50 mg PO BID #60 cap 12/31/22 Sertraline [Zoloft*] 100 mg PO DAILY #30 tab 12/31/22 Umeclidinium Brm/Vilanterol Tr [Anoro Ellipta 62.5-25 Mcg INH] 1 each IH DAILY 30 Days #30 aero 01/09/23 Ensure Enlive 237 ml PO BID can 01/13/23 Loperamide HCl [Imodium A-D] 2 mg PO TID PRN 10 Days #15 tab 01/13/23 Mag Hydroxide 8% [Milk Of Magnesia*] 30 ml PO DAILYPRN PRN 01/13/23 Melatonin [Melatonin*] 3 mg PO BEDTIME PRN PRN 01/13/23 Mirtazapine [Remeron*] 7.5 mg PO BEDTIME tab 01/13/23 Nicotine [Nicoderm*] 21 mg TD DAILY 01/13/23 Tamsulosin [Flomax*] 0.4 mg PO BID cap 01/13/23 Loperamide [Imodium*] 2 mg PO Q4H PRN 5 Days #10 cap 01/15/23 Potassium Chloride 20 meq PO DAILY 5 Days #5 01/15/23 New Medications: Umeclidinium Brm/Vilanterol Tr [Anoro Ellipta 62.5-25 Mcg INH] 1 each IH DAILY 30 Days #30 aero Loperamide HCl [Imodium A-D] 2 mg PO TID PRN 10 Days #15 tab PRN Reason: Diarrhea Loperamide [Imodium*] 2 mg PO Q4H PRN 5 Days #10 cap PRN Reason: Diarrhea Potassium Chloride 20 meq PO DAILY 5 Days #5 Physician Discharge Instructions: is a 72-year-old male with a history of COPD, diabetes mellitus not insulin dependent, hypertension, atrial fibrillation, asthma who was admitted to the [facility] on on 01/02/2023 with a diagnosis of severe sepsis with septic shock, pneumonia and acute renal failure Patient was admitted to the hospital, and treated with IV fluid, IV antibiotics, bronchodilators, steroids Patient is consulted to adjunct instructor of women's studies and living coach. Patient's condition improved. On 01/13/2020, patient was seen on morning rounds and deemed medically stable for discharge. Patient was discharged with instructions to schedule follow-up appointments with PCP 3 to 5 days and living coach in 4 weeks. Followup: Jay Caldwell MD [ACTIVE - CAN ADMIT] - 1-2 Days (call for appt) Uri Maldonado DO [Primary Care Provider] - 1-2 Days (call for appt) Ottoniel Jimenes [ACTIVE - CAN ADMIT] - 1-2 Days (call for appt)
[2023-01-15 17:07] VITALS: BP 115/52
[2023-01-15 18:13] VITALS: O2SAT 96
== END 2023-01-15 18:00 | DRG 871 ==
LOC: ER 16:06 → ERHOLD 23:57 → 2ND 01-05 14:32
PROVIDERS: ADMIT Internal Medicine Nephrology; ATTEND Hospitalist
PROC: 02HV33Z Insertion of Infusion Device into Superior Vena Cava, Percutaneous Approach (ICD-10-PCS; principal; 2023-01-01)
PROC: 0T9B70Z Drainage of Bladder with Drainage Device, Via Natural or Artificial Opening (ICD-10-PCS; 2023-01-01)
DX: A41.9 Sepsis, unspecified organism (principal); J18.9 Pneumonia, unspecified organism; R65.21 Severe sepsis with septic shock; J96.01 Acute respiratory failure with hypoxia; J96.02 Acute respiratory failure with hypercapnia; N17.9 Acute kidney failure, unspecified; J44.0 Chronic obstructive pulmonary disease with (acute) lower respiratory infection; I48.20 Chronic atrial fibrillation, unspecified; E87.1 Hypo-osmolality and hyponatremia; J44.1 Chronic obstructive pulmonary disease with (acute) exacerbation; N13.30 Unspecified hydronephrosis; I13.0 Hypertensive heart and chronic kidney disease with heart failure and stage 1 through stage 4 chronic kidney disease, or unspecified chronic kidney disease; I50.810 Right heart failure, unspecified; N18.30 Chronic kidney disease, stage 3 unspecified; E11.22 Type 2 diabetes mellitus with diabetic chronic kidney disease; E11.65 Type 2 diabetes mellitus with hyperglycemia; D63.1 Anemia in chronic kidney disease; L89.152 Pressure ulcer of sacral region, stage 2; E78.5 Hyperlipidemia, unspecified; M19.90 Unspecified osteoarthritis, unspecified site; E83.39 Other disorders of phosphorus metabolism; E87.6 Hypokalemia; B37.9 Candidiasis, unspecified; N40.1 Benign prostatic hyperplasia with lower urinary tract symptoms; R33.8 Other retention of urine; Z88.1 Allergy status to other antibiotic agents; Z88.8 Allergy status to other drugs, medicaments and biological substances; Z79.84 Long term (current) use of oral hypoglycemic drugs; Z79.52 Long term (current) use of systemic steroids; Z79.01 Long term (current) use of anticoagulants; Z79.899 Other long term (current) drug therapy
CPT/HCPCS: 36415; 51702; 71045; 71250; 71275; 74176; 76770; 80048; 80053; 80061; 80069; 80076; 81001; 82533; 82805; 82947; 83605; 83735; 83880; 84100; 84439; 84443; 84484; 84550; 85025; 85610; 85730; 87040; 87324; 93005; 93970; 94640; 94760; 97110; 97116; 97161; 97530; 99291; 99292; J0612; J0692; J1644; J1720; J2405; J2920; J3475; J3480; J7030; J7040; J7050; J7512; J7605; J7613; J7644; P9047; Q9967

== ENCOUNTER 2023-05-06 12:33 | Inpatient (IN) | payer OTHER ==
[2023-05-06] MEDS ORDERED: ONDANSETRON 4 MG/2 ML VIAL ONE (13:41)
[2023-05-06] MEDS ORDERED: MORPHINE 4 MG/ML SYR ONE (13:41)
[2023-05-06 13:46] LABS: Absolute Basophils 0.1 K/uL (0-0.5); Absolute Eosinophils 0.2 K/uL (0-0.5); Absolute Lymphocytes (CBC) 1.9 K/uL (0.7-4.9); Absolute Monocytes 0.8 K/uL (0.1-1.3); Absolute Neutrophil 10.7 K/uL (1.8-8.0); Basophils % 0.7 % (0-1.3); Eosinophils % 1.3 % (0-4.4); Hematocrit 31.6 % (39.6-49.0); Hemoglobin 9.9 g/dL (13.6-17.9); Lymphocytes % 13.8 % (15.3-44.8); MCHC 31.4 g/dL (32.0-36.0); MPV 6.8 fL (7.6-11.3); Monocytes % 5.8 % (3.3-12.3); Neutrophils % 78.4 % (41.7-73.7); Platelets 393 thou/uL (152-406); RBC Red Blood Cell Count 3.67 M/uL (4.33-5.43); Red Cell Distribution Width 18.9 % (12.1-15.2)
[2023-05-06 14:08] LABS: ALT/SGPT 16 U/L (16-61); AST/SGOT 15 U/L (15-37); Albumin 2.9 g/dL (3.4-5.0); Albumin/Globulin Ratio 0.9 (1.1-1.8); Alkaline Phosphatase 106 U/L (45-117); Anion Gap 6.6 mEq/L (5.0-15.0); BUN Blood Urea Nitrogen 33 mg/dL (7-18); Bicarbonate 29 mEq/L (21-32); Bilirubin Total 0.3 mg/dL (0.2-1.0); Globulin 3.3 g/dL (2.3-3.5); Glomerular Filtration Rate 62 ml/min (=/>90); Glucose Level 90 mg/dL (74-106); Lipase 1898 U/L (13-75); Magnesium 2.1 mg/dL (1.6-2.4); NT PRO-BNP 2280 pg/mL (<450); Potassium 3.6 mEq/L (3.5-5.1); Protein, Total 6.2 g/dL (6.4-8.2); Sodium Level 141 mEq/L (136-145); Troponin High Sensitivity 17.9 pg/mL (<58.9)
[2023-05-06 14:20] LABS: Bilirubin Direct < 0.1 mg/dL (0-0.2); Bilirubin Indirect, Calculated ND mg/dL (0.2-0.8)
--- NOTE | 2023-05-06 14:44 | RAD REPORT ---
EXAM DESCRIPTION: CT - Angio Aorta For Dissection - 05/06/2023 2:02 pm CLINICAL HISTORY: abd, back, and chest pain COMPARISON: Abdomen Pelvis Wo Contrast dated 03/14/2023; Chest For Pe Angio dated 01/03/2023 TECHNIQUE: Thin axial CT images of the chest, abdomen, and pelvis were obtained during administratio n of 100mL Isovue 370 IV contrast. Sagittal and coronal reconstructions as well as maximal intensity projection reconstruction were generated and reviewed per an aortic angiography protocol. All CT scans are performed using dose optimization technique as appropriate and may include automated exposure control or mA/KV adjustment according to patient size. FINDINGS: Aorta is normal in diameter with no dissection or other acute aortic findings. Moderate to advanced atherosclerotic calcifications most pronounced at the distal abdominal aorta and iliac vess els, with up to moderate degrees of external iliac artery narrowing, more so on the right. Pulmonary arteries are normal. No mass or infiltrate in the lung parenchyma. Moderate to advanced centrilobular emphysematous change s. Mild bibasilar scarring, stable. Crescentic posterior upper segment left lower lobe nodularity bhavana suring 1.2 cm is stable. Lingular atelectasis. 5 mm calcified left upper lobe granuloma, benign in ap pearance. No pleural thickening, pleural effusion or pneumothorax. No abnormal mediastinal or hilar mass or lymphadenopathy seen. No chest wall mass or abnormal axillar y lymphadenopathy. Celiac, SMA and renal arteries show no suspicious findings. Pronounced peripancreatic edema extending into the retroperitoneal space more so on the right. No areas of hypoenhancement of the pancreatic p arenchyma. 1.4 cm cyst of the pancreatic tail, likely incidental. Few gallstones. Patchy areas of hyp oattenuation in the renal cortices more so on the left. Wall thickening of the urinary bladder with F oley catheter in place. Small left inguinal hernia containing fat. Remainder of the abdominal viscera and bowel show no significant findings. No mass or abnormal lymphadenopathy. Sclerotic changes at the femoral heads bilaterally with relatively well-marginated subchondral region s of lucency, suggesting sequelae of avascular necrosis. IMPRESSION: No acute abnormalities on CT angiogram of the aorta. Pronounced peripancreatic edema, suggesting acute interstitial edematous pancreatitis. Incidentally n oted pancreatic tail 1.4 cm cyst, likely an incidental cyst, for which a follow-up CT or MRI in 12 mo nths would be recommended to ensure stability. Patchy areas of hypoattenuation in the renal cortex bilaterally, suggesting acute pyelonephritis. Pro nounced wall thickening of the bladder, may suggest ongoing cystitis. Ascending infection simply cons ider. Cholelithiasis. Other incidental findings as above. The findings were communicated to Freddie Herman on 05/06/2023 at 14:38 hours.
[2023-05-06] MEDS ORDERED: HYDROMORPHONE HCL 1 MG/ML INJ ONE (14:55)
[2023-05-06 15:01] LABS: Sqamous Epithelial None Seen /HPF (None Seen); Urine Bacteria <20 /HPF (<20); Urine Bilirubin NEGATIVE (Negative); Urine Blood Negative (Negative); Urine Clarity Turbid (Clear); Urine Color Light-Yellow (Yellow); Urine Culture Reflex Order REFLEXED; Urine Glucose NEGATIVE (Negative); Urine Ketones NEGATIVE (Negative); Urine Microscopic Reflex YN ORDER UMIC; Urine Mucus Slight /HPF (None Seen); Urine Nitrite 1+ (Negative); Urine Protein TRACE (Negative); Urine RBC <5 /HPF (None Seen); Urine Urobilinogen Normal (Normal); Urine WBC >50 /HPF (<5); Urine pH 5.5 (5.0-7.0)
--- NOTE | 2023-05-06 16:19 | ER ---
Nurse's Notes [facility] Name: Jose Marcelino Age: 73 yrs Sex: Male : 1950 Arrival Date: 05/06/2023 Time: 12:33 Bed 14 Private MD: Diagnosis: Acute pancreatitis;Pyelonephritis Presentation: 05/05 12:39 Chief complaint: EMS states: toned out for epigastric abdominal pain that radiates to me1 his mid upper back. Reports diarrhea for a couple of days. Denies n/v. Coronavirus screen: Vaccine status: Patient reports receiving the 2nd dose of the covid vaccine. Ebola Screen: No symptoms or risks identified at this time. Initial Sepsis Screen: Does the patient meet any 2 criteria? No. Patient's initial sepsis screen is negative. Does the patient have a suspected source of infection? No. Patient's initial sepsis screen is negative. Risk Assessment: Do you want to hurt yourself or someone else? Patient reports no desire to harm self or others. Onset of symptoms was May 06, 2023 at 06:00. Care prior to arrival: IV initiated. 22 GA, in the left wrist. 12:39 Method Of Arrival: EMS: Nursery EMS tx1 12:39 Acuity: [facility] 3 me1 Triage Assessment: 12:44 General: Appears uncomfortable, unkempt, well developed, well nourished, Behavior is me1 calm, cooperative, appropriate for age, Reports epigastric pain that radiates to mid back, 7/10, sharp. Pain: Complains of pain in chest and epigastric area Pain radiates to back Pain currently is 7 out of 10 on a pain scale. Quality of pain is described as sharp, Pain began suddenly, 6 am Is continuous. Neuro: Level of Consciousness is awake, alert, obeys commands, Oriented to person, place, time, situation, Appropriate for age. Cardiovascular: Reports chest pain, Denies lightheadedness, nausea, shortness of breath, Capillary refill < 3 seconds Patient's skin is warm and dry. Respiratory: Airway is patent Trachea midline Respiratory effort is even, unlabored, Respiratory pattern is regular, symmetrical. GI: Reports diarrhea. : No signs and/or symptoms were reported regarding the genitourinary system. Derm: Skin is pink, warm \T\ dry. Musculoskeletal: No signs and/or symptoms reported regarding the musculoskeletal system. Historical: - Allergies: 12:44 Amoxicillin; me1 12:44 Atrovent; me1 12:44 hydrochlorothiazide; me1 12:44 limestone; me1 - PMHx: 12:44 Asthma; Hypertensive disorder; Atrial fibrillation; Chronic obstructive lung disease; me1 diabetes mellitus; Congestive heart failure; - Immunization history:: Adult Immunizations up to date. - Social history:: Smoking status: Patient/guardian denies using tobacco, Stopped _ months ago 1. Screenin:49 [facility] ED Fall Risk Assessment (Adult) History of falling in the last 3 months, me1 including since admission No falls in past 3 months (0 pts) Confusion or Disorientation No (0 pts) Intoxicated or Sedated No (0 pts) Impaired Gait No (0 pts) Mobility Assist Device Used No (0 pt) Altered Elimination No (0 pt) Score/Fall Risk Level 0 - 2 = Low Risk Maintained a safe environment, Provided non-skid footwear, Hourly rounding (assess needs \T\ fall precautionary measures) done. Abuse screen: Denies threats or abuse. Nutritional screening: No deficits noted. Tuberculosis screening: No symptoms or risk factors identified. Assessment: 12:49 General: See triage assessment. . me1 14:00 Reassessment: No changes from previously documented assessment. Patient and/or family me1 updated on plan of care and expected duration. Pain level reassessed. Patient is alert, oriented x 3, equal unlabored respirations, skin warm/dry/pink. 15:00 Reassessment: No changes from previously documented assessment. Patient and/or family me1 updated on plan of care and expected duration. Pain level reassessed. Patient is alert, oriented x 3, equal unlabored respirations, skin warm/dry/pink. 16:00 Reassessment: Patient and/or family updated on plan of care and expected duration. Pain me1 level reassessed. Patient is alert, oriented x 3, equal unlabored respirations, skin warm/dry/pink. Patient states feeling better. 17:00 Reassessment: No changes from previously documented assessment. Patient and/or family me1 updated on plan of care and expected duration. Pain level reassessed. Patient is alert, oriented x 3, equal unlabored respirations, skin warm/dry/pink. 17:31 GI: Bowel sounds present X 4 quads. Abd is soft X 4 quads. me1 Vital Signs: 12:39 BP 167 / 91; Pulse 68; Resp 16; Temp 98.4(O); Pulse Ox 99% on R/A; Weight 68.04 kg; me1 Height 5 ft. 8 in. ; Pain 7/10; 13:00 BP 159 / 52; Pulse 68; Resp 16; Pulse Ox 99% on R/A; me1 14:00 BP 115 / 89; Pulse 71; Resp 16; Pulse Ox 96% on R/A; me1 15:00 BP 151 / 55; Pulse 70; Resp 16; Pulse Ox 94% on R/A; Pain 6/10; me1 15:02 Pain 8/10; me1 16:00 BP 153 / 62; Pulse 72; Resp 20; Pulse Ox 95% on R/A; me1 17:00 BP 162 / 58; Pulse 73; Resp 20; Pulse Ox 94% on R/A; me1 17:18 Pulse Ox 89% on R/A; me1 17:18 Pulse Ox 99% on 2 lpm NC; me1 18:00 BP 179 / 64; Pulse 74; Resp 20; Pulse Ox 100% on 2 lpm NC; me1 12:39 Body Mass Index 22.81 (68.04 kg, 172.72 cm) me1 12:39 Pain Scale: Adult me1 15:00 Pain Scale: Adult me1 15:02 Pain Scale: Adult me1 17:18 Admininstered o2 at 2 lpm via nc me1 ED Course: 12:37 Patient arrived in ED. me1 12:42 Freddie Herman MD is Attending Physician. rt 12:44 Triage completed. me1 12:44 Arm band placed on Patient placed in an exam room. me1 12:49 Patient has correct armband on for positive identification. Bed in low position. Call tx1 light in reach. Side rails up X2. Provided Education on: POC. Verbalized understanding. . 12:49 No provider procedures requiring assistance completed. Maintain EMS IV. Dressing me1 intact. Good blood return noted. Site clean \T\ dry. Gauge \T\ site: 22g Left Wrist. 13:09 Terri Lopez RN is Primary Nurse. me1 13:26 EKG done, by ED staff, reviewed by Freddie Herman MD. me1 13:28 Basic Metabolic Panel Sent. me1 13:28 CBC with Diff Sent. me1 13:28 LFT's Sent. me1 13:28 Magnesium Sent. me1 13:28 NT PRO-BNP Sent. me1 13:28 Troponin HS Sent. me1 13:30 Inserted saline lock: 20 gauge in left forearm, using aseptic technique. aa5 13:38 Initial lab(s) drawn, by tx, sent to lab. me1 14:04 CT Aorta for Dissection In Process Unspecified. EDMS 15:05 Urinalysis w/ reflexes Sent. me1 15:05 Urine collected: Jeffers catheter specimen, clear. me1 16:17 Nav Fuentes MD is Hospitalizing Provider. rt 16:36 Urine Culture Sent. me1 17:06 First set of blood cultures drawn by lab staff. Second set of blood cultures drawn by [facility] lab staff. 17:10 Blood Culture Adult (2) Sent. me1 17:10 Lactate w/ 2H reflex if indic. Sent. me1 17:10 Protime (+inr) Sent. me1 17:10 Ptt, Activated Sent. me1 17:10 CBC with Diff Sent. me1 18:19 Terri Lopez, RAMON is Primary Nurse. me1 18:40 Patient admitted, IV remains in place. tx1 Administered Medications: 13:50 Drug: Ondansetron IVP 4 mg IVP once; over 2 minutes Route: IVP; Site: left forearm; me1 15:02 Follow up: Response: No adverse reaction; Nausea is decreased tx1 13:50 Drug: morphine IVP or IV 4 mg IVP once over 4 mins Route: IVP; Infused Over: 4 mins; [facility] Site: left forearm; 15:02 Follow up: Response: No adverse reaction; Pain is unchanged, physician notified tx1 14:56 Drug: HYDROmorphone IVP 1 mg IVP once Route: IVP; Site: left forearm; [facility] 15:02 Follow up: Pain 8/10 Adult; Response: No adverse reaction; Pain is decreased me1 17:06 Drug: Rocephin - Rocephin (cefTRIAXone) IVPB 2 grams IVPB once over 30 mins; (mix in tx1 100 mL NS) Route: IVPB; Infused Over: 30 mins; Site: left forearm; 17:38 Follow up: Response: No adverse reaction; IV Status: Completed infusion; IV Intake: me1 100ml 17:06 Drug: NS 0.9% IV 500 ml IV at calculated rate bolus Route: IV; Rate: calculated rate; me1 Site: left forearm; Medication: 12:49 VIS not applicable for this client. me1 Intake: 17:38 IV: 100ml; Total: 100ml. me1 Outcome: 16:18 Decision to Hospitalize by Provider. rt 18:40 Condition: stable me1 18:40 Admitted to Tele accompanied by tech, via stretcher, room 412, with chart, Report me1 called to faxed at 17:53. Confirmed receipt from [facility]. 18:40 Instructed on the need for admit, 18:45 Patient left the ED. aa5 Signatures: Dispatcher [employer] Li Nguyen RN RN aa5 Sudha Quigley RN RN Freddie Chirinos MD MD rt Terri Lopez, RN RN me1 Corrections: (The following items were deleted from the chart) 17:12 17:11 Reassessment: me1 me1 17:51 17:50 Primary Nurse role handed off by Terri Lopez, RN [email or web address] aa5 17:51 17:49 Patient left the ED. guadalupe faust
--- NOTE | 2023-05-06 16:19 | EDPHYS ---
Physician Documentation [facility] Name: Jose Marcelino Age: 73 yrs Sex: Male : 1950 Arrival Date: 05/06/2023 Time: 12:33 Bed 14 Private MD: ED Physician Freddie Herman HPI: 05/05 14:01 This 73 yrs old Male presents to ER via EMS with complaints of Abdominal Pain. rt 14:01 Patient presents to the ED with abdominal pain that radiates to the chest, back. rt Started this morning at about 6. Patient denies aggravating or elevating factors. Reports that his mid abdominal, sharp in nature. Denies other acute complaints, symptoms are moderate in severity, no other aggravating or alleviating factors.. Historical: - Allergies: 12:44 Amoxicillin; me1 12:44 Atrovent; me1 12:44 hydrochlorothiazide; me1 12:44 limestone; me1 - PMHx: 12:44 Asthma; Hypertensive disorder; Atrial fibrillation; Chronic obstructive lung disease; me1 diabetes mellitus; Congestive heart failure; - Immunization history:: Adult Immunizations up to date. - Social history:: Smoking status: Patient/guardian denies using tobacco, Stopped _ months ago 1. ROS: 14:14 Constitutional: Negative for fever, chills, and weight loss, Respiratory: Negative for rt shortness of breath, cough, wheezing, and pleuritic chest pain, MS/Extremity: Negative for injury and deformity, Skin: Negative for injury, rash, and discoloration, Neuro: Negative for headache, weakness, numbness, tingling, and seizure, 14:14 Cardiovascular: Positive for chest pain, Negative for edema, 14:14 Abdomen/GI: Positive for abdominal pain, Negative for vomiting, 14:14 Back: Positive for pain at rest, Negative for injury or acute deformity, Exam: 14:14 Constitutional: This is a well developed, well nourished patient who is awake, alert, rt and in no acute distress. Head/Face: Normocephalic, atraumatic. Chest/axilla: Normal chest wall appearance and motion. Nontender with no deformity. No lesions are appreciated. Cardiovascular: Regular rate and rhythm with a normal S1 and S2. No gallops, murmurs, or rubs. Normal PMI, no JVD. No pulse deficits. Respiratory: Lungs have equal breath sounds bilaterally, clear to auscultation and percussion. No rales, rhonchi or wheezes noted. No increased work of breathing, no retractions or nasal flaring. Abdomen/GI: Soft, non-tender, with normal bowel sounds. No distension or tympany. No guarding or rebound. No evidence of tenderness throughout. Skin: Warm, dry with normal turgor. Normal color with no rashes, no lesions, and no evidence of cellulitis. MS/ Extremity: Pulses equal, no cyanosis. Neurovascular intact. Full, normal range of motion. Neuro: Awake and alert, GCS 15, oriented to person, place, time, and situation. Cranial nerves II-XII grossly intact. Motor strength 5/5 in all extremities. Sensory grossly intact. Cerebellar exam normal. Normal gait. 14:14 ECG was reviewed by the Attending Physician. Vital Signs: 12:39 BP 167 / 91; Pulse 68; Resp 16; Temp 98.4(O); Pulse Ox 99% on R/A; Weight 68.04 kg; me1 Height 5 ft. 8 in. ; Pain 7/10; 13:00 BP 159 / 52; Pulse 68; Resp 16; Pulse Ox 99% on R/A; me1 14:00 BP 115 / 89; Pulse 71; Resp 16; Pulse Ox 96% on R/A; me1 15:00 BP 151 / 55; Pulse 70; Resp 16; Pulse Ox 94% on R/A; Pain 6/10; me1 15:02 Pain 8/10; me1 16:00 BP 153 / 62; Pulse 72; Resp 20; Pulse Ox 95% on R/A; me1 17:00 BP 162 / 58; Pulse 73; Resp 20; Pulse Ox 94% on R/A; me1 17:18 Pulse Ox 89% on R/A; me1 17:18 Pulse Ox 99% on 2 lpm NC; me1 18:00 BP 179 / 64; Pulse 74; Resp 20; Pulse Ox 100% on 2 lpm NC; me1 12:39 Body Mass Index 22.81 (68.04 kg, 172.72 cm) wy1 12:39 Pain Scale: Adult me1 15:00 Pain Scale: Adult me1 15:02 Pain Scale: Adult me1 17:18 Admininstered o2 at 2 lpm via nc me1 MDM: 12:44 Patient medically screened. rt 17:21 Differential Diagnosis Pancreatitis, aortic dissection, bowel obstruction. Data rt reviewed: vital signs, nurses notes, lab test result(s), EKG, radiologic studies. Consideration of Admission/Observation Patient was admitted/placed on observation. Management of patient was discussed with the following: Hospitalist: Agrees to admit. I considered the following discharge prescriptions or medication management in the emergency department Medications were administered in the Emergency Department. See MAR. Independent interpretation of the following test(s) in the Emergency Department CT Scan: My interpretation is No bowel obstruction seen on interpretation of CT scan images. Care significantly affected by the following chronic conditions: Hypertension. 17:24 Counseling: I had a detailed discussion with the patient and/or guardian regarding the rt historical points, exam findings, and any diagnostic results supporting the discharge/admit diagnosis, lab results, radiology results, the need for further work-up and treatment in the hospital. ED course: Patient's initial presentation was not thought to be due to infectious etiology, once UTI was found, cultures, IV antibiotics were ordered. 500 cc of fluid be given as patient has a history of congestive heart failure and is at risk for volume overload.. 05/05 12:54 Order name: Basic Metabolic Panel; Complete Time: 14:47 rt 05/05 12:54 Order name: CBC with Diff; Complete Time: 14:47 rt 05/05 12:54 Order name: LFT's; Complete Time: 14:47 rt 05/05 12:54 Order name: Magnesium; Complete Time: 14:47 rt 05/05 12:54 Order name: NT PRO-BNP; Complete Time: 14:47 rt 05/05 12:54 Order name: Troponin HS; Complete Time: 14:47 rt 05/05 12:54 Order name: CBC with Diff rt 05/05 12:54 Order name: Lipase; Complete Time: 14:47 rt 05/05 12:54 Order name: Urinalysis w/ reflexes; Complete Time: 15:56 rt 05/05 15:48 Order name: Urine Culture EDMS 05/05 16:01 Order name: Blood Culture Adult (2) rt 05/05 16:01 Order name: Lactate w/ 2H reflex if indic. rt 05/05 16:01 Order name: Protime (+inr) rt 05/05 16:01 Order name: Ptt, Activated rt 05/05 17:14 Order name: Lipid Profile la1 05/05 12:54 Order name: CT Aorta for Dissection; Complete Time: 14:47 rt 05/05 16:30 Order name: Abdomen Limited US: eval gallbladder la1 05/05 12:54 Order name: EKG; Complete Time: 12:55 rt 05/05 12:54 Order name: Cardiac monitoring; Complete Time: 13:28 rt 05/05 12:54 Order name: EKG - Nurse/Tech; Complete Time: 13:28 rt 05/05 12:54 Order name: IV Saline Lock; Complete Time: 13:28 rt 05/05 12:54 Order name: Labs collected and sent; Complete Time: 13:38 rt 05/05 12:54 Order name: O2 Per Protocol; Complete Time: 13:28 rt 05/05 12:54 Order name: O2 Sat Monitoring; Complete Time: 13:28 rt 05/05 12:54 Order name: IV Saline Lock; Complete Time: 13:52 rt 05/05 16:01 Order name: Accucheck; Complete Time: 16:36 rt 05/05 16:01 Order name: IV Saline Lock - Large Bore; Complete Time: 16:36 rt 05/05 16:01 Order name: Vital Signs; Complete Time: 16:36 rt EC:14 Rate is 70 beats/min. Rhythm is regular, Normal Sinus Rhythm with No ectopy, Right rt bundle branch block. [place] interval is normal. QRS interval is normal. QT interval is normal. No Q waves. No ST changes noted. Administered Medications: 13:50 Drug: Ondansetron IVP 4 mg IVP once; over 2 minutes Route: IVP; Site: left forearm; me1 15:02 Follow up: Response: No adverse reaction; Nausea is decreased me1 13:50 Drug: morphine IVP or IV 4 mg IVP once over 4 mins Route: IVP; Infused Over: 4 mins; me1 Site: left forearm; 15:02 Follow up: Response: No adverse reaction; Pain is unchanged, physician notified me1 14:56 Drug: HYDROmorphone IVP 1 mg IVP once Route: IVP; Site: left forearm; me1 15:02 Follow up: Pain 8/10 Adult; Response: No adverse reaction; Pain is decreased me1 17:06 Drug: Rocephin - Rocephin (cefTRIAXone) IVPB 2 grams IVPB once over 30 mins; (mix in me1 100 mL NS) Route: IVPB; Infused Over: 30 mins; Site: left forearm; 17:38 Follow up: Response: No adverse reaction; IV Status: Completed infusion; IV Intake: me1 100ml 17:06 Drug: NS 0.9% IV 500 ml IV at calculated rate bolus Route: IV; Rate: calculated rate; me1 Site: left forearm; Disposition Summary: 05/06/23 16:18 Hospitalization Ordered Notes: Hospitalization Status: Inpatient Admission rt Provider: Nav Fuentes rt Location: Telemetry/MedSurg (Inpatient) rt Condition: Fair rt Problem: new rt Symptoms: have improved rt Bed/Room Type: Standard rt Room Assignment: 412(05/06/23 17:49) hb Diagnosis - Acute pancreatitis rt - Pyelonephritis rt Forms: - Medication Reconciliation Form rt - SBAR form rt - Leadership Thank You Letter rt Signatures: Dispatcher [employer] Sudha Mejia, RN RN hb Freddie Herman MD MD rt Terri Lopez RN RN me1 Corrections: (The following items were deleted from the chart) 17:49 16:18 rt hb
[2023-05-06] MEDS ORDERED: NA CHLORIDE 0.9% 500 ML ONE (16:49)
[2023-05-06] MEDS ORDERED: CEFTRIAXONE 2000 MG/VIAL ONE (16:49)
[2023-05-06] MEDS ORDERED: NA CHLORIDE 0.9% 100 ML ONE (16:50)
--- NOTE | 2023-05-06 17:20 | P.HP ---
Certification for Inpatient Patient admitted to: Inpatient With expected LOS: >2 Midnights Patient will require the following post-hospital care: None Practitioner: I am a practitioner with admitting privileges, knowledge of patient current condition, hospital course, and medical plan of care. Services: Services provided to patient in accordance with Admission requirements found in Title 42 Section 412.3 of the Code of Federal Regulations Patient History Date of Service: 05/06/23 Reason for admission: Pancreatitis, pyelonephritis History of Present Illness: 73-year-old male with history of COPD on chronic home O2/chronic steroids, atrial fibrillation on chronic anticoagulation, diabetes mellitus type [id number], chronic diastolic congestive heart failure, hyperlipidemia, urinary retention with Jeffers catheter in place, depression presents emergency department with 1 day history of abdominal pain. He reports his pain began in his lower abdomen recently spread to his upper abdomen. He was evaluated in the emergency department and his labs were significant for white blood cell count 13.6 hemoglobin 9.1.6 sodium BNP 2280 LFTs/bilirubin levels within normal limits lipase 1898, blood cultures were obtained, lactic acid levels pending, urine reflex for culture as it was positive for leuk esterase, nitrite, white blood cells. CT dissection protocol was performed which revealed pronounced peripancreatic edema suggesting acute interstitial edematous pancreatitis, incidentally noted pancreatic tail 1.4 cm cyst likely incidental cyst recommend follow-up CT or MRI in 12 months, patchy areas of hypoattenuation in the renal cortex bilaterally suggesting acute pyelonephritis, pronounced wall thickening of the bladder may suggest ongoing cystitis, cholelithiasis. Patient was started on antibiotics and Rocephin, Admit patient for further valuation and management of acute pancreatitis, suspected bilateral pyelonephritis/UTI. Allergies ipratropium [From Atrovent] Allergy (Verified 06/11/22 13:50) Shortness of breath limestone Allergy (Uncoded 12/27/21 19:24) Itching/Hives/Rash Home Medications: Simvastatin [Zocor*] 80 mg PO BEDTIME 05/13/13 Hydrocodone/Acetaminophen [Lantry 5-325 Tablet] 7.5 each PO BIDP PRN 01/26/17 Pregabalin [Lyrica] 25 mg PO BID 05/28/21 Benzonatate [Tessalon Perle*] 200 mg PO TID PRN #30 cap 12/09/21 predniSONE [Deltasone*] 10 mg PO DAILY 06/11/22 Amiodarone HCl [Cordarone*] 200 mg PO BID #60 tab 06/17/22 Apixaban [Eliquis *] 2.5 mg PO BID #60 tab 06/17/22 Umeclidinium Brm/Vilanterol Tr [Anoro Ellipta 62.5-25 Mcg INH] 1 each IH DAILY 30 Days #30 aero 01/09/23 Bupropion *Xl* [Wellbutrin XL*] 150 mg PO DAILY 30 Days #30 tab 03/18/23 Midodrine HCl [Proamatine*] 5 mg PO TID 30 Days #90 tab 03/18/23 Tamsulosin [Flomax] 0.4 mg PO DAILY 30 Days #30 cap 03/18/23 Nicotine [Nicotine Patch] 14 mg TD DAILY 04/08/23 Furosemide [Lasix] 20 mg PO DAILY #30 tab 04/09/23 - Past Medical/Surgical History Diabetic: Yes -: Diabetes mellitus type [id number] -: Asthma -: Arthritis -: COPD on home O2 -: Hx PASTOR (Dr. Sousa/ Dr. Stubbs) -: HLD -: Depression -: Atrial fibrillation on chronic anticoagulation -: Hypotension on midodrine -: Diastolic CHF/ Moderate TR -: Urinary retention -: Cyst removal from right side of neck Psychosocial/ Personal History: Patient lives at home with his son - Family History Mother -: Heart disease, Diabetes Sister -: Lung disease, Diabetes, Cancer Father -: Lung disease, Cancer - Social History Smoking Status: Never smoker Alcohol use: No CD- Drugs: No Caffeine use: No Place of Residence: Home Review of Systems 10-point ROS is otherwise unremarkable Gastrointestinal: Nausea, Abdominal Pain Physical Examination - Physical Exam General: Alert, In no apparent distress, Oriented x3 HEENT: Atraumatic, PERRLA, Mucous membr. moist/pink Neck: Supple, 2+ carotid pulse no bruit, No LAD Respiratory: Clear to auscultation bilaterally, Normal air movement Cardiovascular: Regular rate/rhythm, Normal S1 S2 Gastrointestinal: Hypoactive, Distended (Mildly distended), Tenderness (Mild lower abdominal, epigastric tenderness) Musculoskeletal: No tenderness Integumentary: No rashes Neurological: Normal speech, Normal strength at 5/5 x4 extr, Normal tone, Normal affect - Studies Laboratory Data (last 24 hrs) 05/06/23 05/06/23 13:37 13:37 WBC 13.60 H Hgb 9.9 L Hct 31.6 L Plt Count 393 Sodium 141 Potassium 3.6 BUN 33 H Creatinine 1.22 Glucose 90 Magnesium 2.1 Total Bilirubin 0.3 AST 15 ALT 16 Alkaline Phosphatase 106 Lipase 1898 H Assessment and Plan - Plan Assessment: Acute pancreatitis Cholelithiasis Pancreatic tail 1.4 cm cyst Complicated urinary tract infection/pyelonephritis with indwelling Jeffers catheter for urinary retention Chronic diastolic congestive heart failure Atrial fibrillation on chronic anticoagulation therapy Diabetes mellitus type [id number] Chronic hypotension on midodrine COPD on home O2/chronic steroids Hyperlipidemia Depression Plan: Acute pancreatitis Cholelithiasis Pancreatic tail 1.4 cm cyst Cyst likely incidental finding per radiologyrecommend CT or MRI in 12 months to further assess stability Patient denies alcohol use, no previous episodes of pancreatitis in the past CT showed small amount of cholelithiasis, will obtain gallbladder ultrasound to rule out biliary dilatation/obstruction N.p.o., IVF (gentle,given CHF, concern for developing volume overload), as needed pain medications and antiemetics Trend lipase Complicated urinary tract infection/pyelonephritis with indwelling Jeffers catheter for urinary retention Blood and urine cultures obtained Antibioticscefepime based on previous sensitivities Await cultures Continue alfuzosin Chronic diastolic congestive heart failure Does not appear grossly overloaded, continue IV fluids for acute pancreatitis Will need to monitor volume status closely Atrial fibrillation on chronic anticoagulation therapy Continue home medications likely tomorrow morning if tolerating sips of water for medications Diabetes mellitus type [id number] ACHS Accu-Chek, sliding scale insulin Chronic hypotension on midodrine Blood pressure on the higher side today, resume if patient is persistently soft COPD on home O2/chronic steroids Continue home medications Hyperlipidemia Continue statin Depression Continue medications DVT PPX: Lovenox for now, resume Eliquis when tolerating p.o. Code status: Full Discharge Plan: Home Plan to discharge in: Greater than 2 days - Advance Directives Does patient have a Living Will: No Does patient have a Durable POA for Healthcare: No - Code Status/Comfort Care Code Status Assessed: Yes (Full code) Critical Care: No Time Spent Managing Pts Care (In Minutes): 70
[2023-05-06 18:05] LABS: PT Prothrombin Time 12.9 SECONDS (9.5-12.5); PTT, Activated Partial Thromb 29.8 SECONDS (24.3-36.9); Protime INR 1.18
--- NOTE | 2023-05-06 18:52 | RAD REPORT ---
EXAM DESCRIPTION: US - Abdomen Exam Limited - 05/06/2023 6:03 pm CLINICAL HISTORY: ABD PAIN COMPARISON: Renal Ultrasound-Complete dated 04/06/2023 TECHNIQUE: Sonographic grayscale and color flow images of the right upper abdominal quadrant were o btained. FINDINGS: The gallbladder demonstrates an echogenic shadowing 1 cm calculus at the gallbladder neck. No pericholecystic fluid or gallbladder wall thickening. The common bile duct is normal measuring 1 mm. The liver demonstrates no findings of intrahepatic biliary dilatation. IMPRESSION: Gallbladder neck calculus. No findings to suggest acute cholecystitis or biliary ductal dilation.
[2023-05-06] MEDS: NA CHLORIDE 0.9% 1,000 ML IV SCH (20:34)
[2023-05-06] MEDS: MORPHINE 2 MG/ML SYR IV PRN (20:36)
[2023-05-06] MEDS: INSULIN REGULAR (HUMAN) 100 UNIT/ML SQ SCH (20:37)
[2023-05-06] MEDS: ONDANSETRON 4 MG/2 ML VIAL IV PRN (20:44)
[2023-05-06 23:36] VITALS: BMI 22.8
[2023-05-07 06:40] LABS: Absolute Eosinophils 0.1 K/uL (0-0.5); Absolute Lymphocytes (CBC) 1.8 K/uL (0.7-4.9); Absolute Monocytes 0.7 K/uL (0.1-1.3); Absolute Neutrophil 10.8 K/uL (1.8-8.0); Basophils % 0.3 % (0-1.3); Eosinophils % 0.9 % (0-4.4); Hematocrit 30.4 % (39.6-49.0); Hemoglobin 9.8 g/dL (13.6-17.9); Lymphocytes % 13.4 % (15.3-44.8); MCH 27.6 pg (27.0-35.0); MCHC 32.2 g/dL (32.0-36.0); MCV 85.9 fL (80-100); Monocytes % 5.2 % (3.3-12.3); Neutrophils % 80.2 % (41.7-73.7); Platelets 332 thou/uL (152-406); RBC Red Blood Cell Count 3.55 M/uL (4.33-5.43); Red Cell Distribution Width 18.8 % (12.1-15.2)
[2023-05-07 06:56] LABS: Albumin 2.5 g/dL (3.4-5.0); Albumin/Globulin Ratio 0.8 (1.1-1.8); Anion Gap 7.6 mEq/L (5.0-15.0); Bilirubin Total 0.2 mg/dL (0.2-1.0); Globulin 3.1 g/dL (2.3-3.5); Magnesium 2.3 mg/dL (1.6-2.4); Potassium 3.6 mEq/L (3.5-5.1); Protein, Total 5.6 g/dL (6.4-8.2)
[2023-05-07] MEDS: POTASSIUM CL SA 10 MEQ TAB PO ONE (08:34)
[2023-05-07] MEDS: CEFEPIME 1 GM in NA CHLORIDE 0.9% 100 ML IV SCH (08:34)
--- NOTE | 2023-05-07 11:53 | EKG ---
Test Date: 2023-05-06 Test Time: 13:12:11 Dancing Instructor: MICHAEL MEASUREMENT RESULTS: Intervals: Rate: 70 UT: 180 QRSD: 158 QT: 456 QTc: 492 [place]: P: -11 UT: 180 QRS: -37 T: 58 INTERPRETIVE STATEMENTS: Normal sinus rhythm Left axis deviation Right bundle branch block T wave abnormality, consider lateral ischemia Abnormal ECG Compared to ECG 04/08/2023 15:27:39 Left-axis deviation now present T-wave abnormality still present Possible ischemia still present Electronically Signed On 05-07-23 11:49:30 CDT by Serafin James
--- NOTE | 2023-05-07 13:12 | P.PN ---
Date of Service: 05/07/23 Subjective: Pain significantly improved tolerating sips of water/ice chips no fevers ROS: 10 point ROS as noted above, otherwise negative Physical exam GEN: Alert, oriented, NAD HEENT: Normal conjunctiva, sclera anicteric CV: Regular rate and rhythm, no edema Pulm: Nonlabored respirations on room air ABD: Soft, nontender, nondistended MSK: No joint tenderness Integumentary: No rashes Neuro: Normal speech, normal affect Vitals reviewed Assessment: Acute pancreatitis Cholelithiasis Pancreatic tail 1.4 cm cyst Complicated urinary tract infection/pyelonephritis with indwelling Jeffers catheter for urinary retention Chronic diastolic congestive heart failure Atrial fibrillation on chronic anticoagulation therapy Diabetes mellitus type [id number] Chronic hypotension on midodrine COPD on home O2/chronic steroids Hyperlipidemia Depression Plan: Acute pancreatitis Cholelithiasis Pancreatic tail 1.4 cm cyst Cyst likely incidental finding per radiologyrecommend CT or MRI in 12 months to further assess stability Patient denies alcohol use, no previous episodes of pancreatitis in the past CT showed small amount of cholelithiasis, ABD US with no biliary dilatation, reticulocytes within normal limits Lipase improving, will trial liquid diet, restart oral medications today Seen by general surgeryno surgical invention recommended at this time Complicated urinary tract infection/pyelonephritis with indwelling Jeffers catheter for urinary retention Blood and urine cultures obtained-continue to follow Antibioticscefepime based on previous sensitivities Continue alfuzosin Chronic diastolic congestive heart failure Does not appear grossly overloaded, continue IV fluids for acute pancreatitis Will need to monitor volume status closely Atrial fibrillation on chronic anticoagulation therapy Continue home medications Diabetes mellitus type [id number] ACHS Accu-Chek, sliding scale insulin Chronic hypotension on midodrine Blood pressure on the higher side today, resume if patient is persistently soft COPD on home O2/chronic steroids Continue home medications Hyperlipidemia Continue statin Depression Continue medications DVT PPX: Lovenox for now, resume Eliquis when tolerating p.o. Code status: Full Discharge Plan: Home Plan to discharge in: Greater than 2 days Time Spent Managing Pts Care (In Minutes): 35
[2023-05-07] MEDS ORDERED: BENZONATATE 100 MG CAP PO PRN (13:15)
[2023-05-07] MEDS: MIRTAZAPINE 15 MG TAB PO SCH (19:54)
[2023-05-07] MEDS: APIXABAN 2.5 MG TABLET PO SCH (19:54)
[2023-05-07] MEDS: AMIODARONE HCL 200 MG TAB PO SCH (19:54)
[2023-05-07] MEDS: ATORVASTATIN 40 MG TAB PO SCH (19:54)
[2023-05-07] MEDS ORDERED: HOME MED 1 EA UNK (Mirtazapine [Mirtazapine] 7.5 MG Tablet) PO SCH (21:00)
[2023-05-08 05:30] LABS: Absolute Basophils 0.1 K/uL (0-0.5); Absolute Eosinophils 0.4 K/uL (0-0.5); Absolute Lymphocytes (CBC) 2.5 K/uL (0.7-4.9); Absolute Neutrophil 8.5 K/uL (1.8-8.0); Basophils % 0.5 % (0-1.3); Hematocrit 28.6 % (39.6-49.0); Hemoglobin 9.2 g/dL (13.6-17.9); MCH 27.7 pg (27.0-35.0); MCHC 32.1 g/dL (32.0-36.0); MCV 86.3 fL (80-100); MPV 7.2 fL (7.6-11.3); Neutrophils % 68.5 % (41.7-73.7); Nucleated Red Blood Cells % 0.1 % (0-0); Platelets 298 thou/uL (152-406); RBC Red Blood Cell Count 3.32 M/uL (4.33-5.43); Red Cell Distribution Width 18.8 % (12.1-15.2)
[2023-05-08 05:52] LABS: Albumin 2.2 g/dL (3.4-5.0); Albumin/Globulin Ratio 0.7 (1.1-1.8); Anion Gap 10.6 mEq/L (5.0-15.0); Bilirubin Total 0.3 mg/dL (0.2-1.0); Magnesium 2.2 mg/dL (1.6-2.4); Potassium 3.6 mEq/L (3.5-5.1); Protein, Total 5.2 g/dL (6.4-8.2)
[2023-05-08] MEDS: POTASSIUM CL SA 10 MEQ TAB PO ONE (08:11)
[2023-05-08] MEDS: predniSONE 10 MG TAB PO SCH (08:11)
[2023-05-08] MEDS: ROFLUMILAST 500 MCG TABLET PO SCH (08:11)
[2023-05-08] MEDS: ALFUZOSIN HCL 10 MG PO SCH (09:00)
[2023-05-08] MEDS: BUPROPION HCL XL 150 MG TAB PO SCH (10:25)
--- NOTE | 2023-05-08 11:29 | P.PN ---
Date of Service: 05/08/23 Subjective: Pain significantly improved tolerating sips of water/ice chips no fevers ROS: 10 point ROS as noted above, otherwise negative Physical exam GEN: Alert, oriented, NAD HEENT: Normal conjunctiva, sclera anicteric CV: Regular rate and rhythm, no edema Pulm: Nonlabored respirations on room air ABD: Soft, nontender, nondistended MSK: No joint tenderness Integumentary: No rashes Neuro: Normal speech, normal affect Vitals reviewed Assessment: Acute pancreatitis Cholelithiasis Pancreatic tail 1.4 cm cyst Complicated urinary tract infection/pyelonephritis with indwelling Jeffers catheter for urinary retention Chronic diastolic congestive heart failure Atrial fibrillation on chronic anticoagulation therapy Diabetes mellitus type [id number] Chronic hypotension on midodrine COPD on home O2/chronic steroids Hyperlipidemia Depression Plan: Acute pancreatitis Cholelithiasis Pancreatic tail 1.4 cm cyst Cyst likely incidental finding per radiologyrecommend CT or MRI in 12 months to further assess stability Patient denies alcohol use, no previous episodes of pancreatitis in the past CT showed small amount of cholelithiasis, ABD US with no biliary dilatation Lipase improving, will try to advance diet today Seen by general surgeryno surgical invention recommended at this time Complicated urinary tract infection/pyelonephritis with indwelling Jeffers catheter for urinary retention Blood and urine cultures obtained-continue to follow Antibioticscefepime based on previous sensitivities Continue alfuzosin Chronic diastolic congestive heart failure Does not appear grossly overloaded, continue IV fluids for acute pancreatitis Will need to monitor volume status closely Atrial fibrillation on chronic anticoagulation therapy Continue home medications Diabetes mellitus type [id number] ACHS Accu-Chek, sliding scale insulin Chronic hypotension on midodrine Blood pressure on the higher side, resume if patient is persistently soft COPD on home O2/chronic steroids Continue home medications Hyperlipidemia Continue statin Depression Continue medications DVT PPX: Resume eliquis Code status: Full Discharge Plan: Home Plan to discharge in: Greater than 2 days Time Spent Managing Pts Care (In Minutes): 35
[2023-05-09 04:42] LABS: Absolute Basophils 0.1 K/uL (0-0.5); Absolute Eosinophils 0.4 K/uL (0-0.5); Absolute Lymphocytes (CBC) 2.4 K/uL (0.7-4.9); Absolute Monocytes 1.1 K/uL (0.1-1.3); Absolute Neutrophil 9.4 K/uL (1.8-8.0); Basophils % 1.1 % (0-1.3); Eosinophils % 2.9 % (0-4.4); Hematocrit 28.7 % (39.6-49.0); Lymphocytes % 17.6 % (15.3-44.8); MCH 27.1 pg (27.0-35.0); MCHC 31.4 g/dL (32.0-36.0); MCV 86.5 fL (80-100); MPV 7.4 fL (7.6-11.3); Monocytes % 8.1 % (3.3-12.3); Neutrophils % 70.3 % (41.7-73.7); Platelets 285 thou/uL (152-406); RBC Red Blood Cell Count 3.32 M/uL (4.33-5.43)
[2023-05-09 04:59] LABS: Albumin 2.3 g/dL (3.4-5.0); Albumin/Globulin Ratio 0.7 (1.1-1.8); Anion Gap 7.6 mEq/L (5.0-15.0); Bilirubin Total 0.2 mg/dL (0.2-1.0); Globulin 3.1 g/dL (2.3-3.5); Magnesium 2.4 mg/dL (1.6-2.4); Potassium 3.6 mEq/L (3.5-5.1); Protein, Total 5.4 g/dL (6.4-8.2)
[2023-05-09] MEDS: POTASSIUM CL SA 10 MEQ TAB PO ONE (09:17)
--- NOTE | 2023-05-09 12:22 | P.PN ---
Date of Service: 05/09/23 Subjective: Tolerating carb consistent diet No new complaints No acute events overnight ROS: 10 point ROS as noted above, otherwise negative Physical exam GEN: Alert, oriented, NAD HEENT: Normal conjunctiva, sclera anicteric CV: Regular rate and rhythm, no edema Pulm: Nonlabored respirations on nasal cannula-2L ABD: Soft, nontender, nondistended MSK: No joint tenderness Integumentary: No rashes Neuro: Normal speech, normal affect Vitals reviewed Assessment: Acute pancreatitis Cholelithiasis Pancreatic tail 1.4 cm cyst Complicated urinary tract infection/pyelonephritis with indwelling Jeffers catheter for urinary retention Chronic diastolic congestive heart failure Atrial fibrillation on chronic anticoagulation therapy Diabetes mellitus type [id number]-euszgiqad Chronic hypotension on midodrine COPD on home O2/chronic steroids Hyperlipidemia Depression Plan: Acute pancreatitis Cholelithiasis Pancreatic tail 1.4 cm cyst Cyst likely incidental finding per radiologyrecommend CT or MRI in 12 months to further assess stability Patient denies alcohol use, no previous episodes of pancreatitis in the past CT showed small amount of cholelithiasis, ABD US with no biliary dilatation Lipase improving, tolerating carb consistent diet Seen by general surgeryno surgical invention recommended at this time Complicated urinary tract infection/pyelonephritis with indwelling Jeffers catheter for urinary retention Blood cultures without growth for 24 hours Antibioticscefepime based on previous sensitivities Urine culture showed Pseudomonas Aeruginosa sensitive to cefepime, urine culture from 03/14/2023 also showed the same bacteria with similar sensitivity. At that time he was treated with IV cefepime initially and transition to p.o. ciprofloxacin for 10 days, he had a total of around 2 weeks of antibiotics. Pseudomonas has now become intermittently sensitive to Cipro. Will consult ID for further input Continue alfuzosin Chronic diastolic congestive heart failure Does not appear grossly overloaded, continue IV fluids for acute pancreatitis Will need to monitor volume status closely Atrial fibrillation on chronic anticoagulation therapy Continue home medications Diabetes mellitus type [id number]-[id number] ACHS Accu-Chek, sliding scale insulin Chronic hypotension on midodrine Blood pressure on the higher side, resume if patient is persistently soft COPD on home O2/chronic steroids Continue home medications Hyperlipidemia Continue statin Depression Continue medications DVT PPX: Resume eliquis Code status: Full Discharge Plan: Home Plan to discharge in: Greater than 2 days Time Spent Managing Pts Care (In Minutes): 35
[2023-05-10 07:05] LABS: Absolute Eosinophils 0.4 K/uL (0-0.5); Absolute Lymphocytes (CBC) 2.5 K/uL (0.7-4.9); Absolute Monocytes 0.9 K/uL (0.1-1.3); Absolute Neutrophil 6.7 K/uL (1.8-8.0); Basophils % 0.3 % (0-1.3); Eosinophils % 3.5 % (0-4.4); Hematocrit 30.5 % (39.6-49.0); Hemoglobin 9.7 g/dL (13.6-17.9); Lymphocytes % 23.5 % (15.3-44.8); MCH 27.5 pg (27.0-35.0); MCHC 31.8 g/dL (32.0-36.0); MCV 86.3 fL (80-100); MPV 7.2 fL (7.6-11.3); Monocytes % 8.4 % (3.3-12.3); Neutrophils % 64.3 % (41.7-73.7); Platelets 296 thou/uL (152-406); RBC Red Blood Cell Count 3.54 M/uL (4.33-5.43); Red Cell Distribution Width 18.4 % (12.1-15.2)
[2023-05-10 07:19] LABS: Albumin 2.3 g/dL (3.4-5.0); Albumin/Globulin Ratio 0.7 (1.1-1.8); Anion Gap 6.6 mEq/L (5.0-15.0); Bilirubin Total 0.2 mg/dL (0.2-1.0); Globulin 3.5 g/dL (2.3-3.5); Magnesium 2.2 mg/dL (1.6-2.4); Potassium 3.6 mEq/L (3.5-5.1); Protein, Total 5.8 g/dL (6.4-8.2)
--- NOTE | 2023-05-10 08:43 | P.CNS ---
Date of Consult: 05/10/23 Reason for Consult: recurrent UTI, pseudomonas Chief Complaint: Pancreatitis, pyelonephritis History of Present Illness: Patient is a 73-year-old male with history of COPD on home O2, atrial fibrillation, diabetes mellitus type 2, chronic diastolic congestive heart failure, urinary retention with Jeffers catheter in place, who presented to the ED with complaints of abdominal pain. Patient was found to have complicated urinary tract infection, urine culture growing pseudomonas. Infectious disease was consulted. Allergies ipratropium [From Atrovent] Allergy (Verified 06/11/22 13:50) Shortness of breath limestone Allergy (Uncoded 12/27/21 19:24) Itching/Hives/Rash Home medications list reviewed: Yes Home Medications: Simvastatin [Zocor*] 80 mg PO BEDTIME 05/13/13 Benzonatate [Tessalon Perle*] 200 mg PO TID PRN #30 cap 12/09/21 predniSONE [Deltasone*] 10 mg PO DAILY 06/11/22 Amiodarone HCl [Cordarone*] 200 mg PO BID #60 tab 06/17/22 Apixaban [Eliquis *] 2.5 mg PO BID #60 tab 06/17/22 Umeclidinium Brm/Vilanterol Tr [Anoro Ellipta 62.5-25 Mcg INH] 1 each IH DAILY 30 Days #30 aero 01/09/23 Bupropion *Xl* [Wellbutrin XL*] 150 mg PO DAILY 30 Days #30 tab 03/18/23 Midodrine HCl [Proamatine*] 5 mg PO TID 30 Days #90 tab 03/18/23 Tamsulosin [Flomax] 0.4 mg PO DAILY 30 Days #30 cap 03/18/23 Alfuzosin HCl 5 mg PO DAILY 05/07/23 Loperamide [Imodium*] 2 mg PO Q4H PRN 05/07/23 Mirtazapine 7.5 mg PO BEDTIME 05/07/23 Potassium Chloride 20 meq PO DAILY 05/07/23 - Past Medical/Surgical History Diabetic: Yes -: Diabetes mellitus type [id number] -: Asthma -: Arthritis -: COPD on home O2 -: Hx PASTOR (Dr. Sousa/ Dr. Stubbs) -: HLD -: Depression -: Atrial fibrillation on chronic anticoagulation -: Hypotension on midodrine -: Diastolic CHF/ Moderate TR -: Urinary retention -: Cyst removal from right side of neck Psychosocial/ Personal History: Patient lives at home with his son - Family History Mother Medical History: Heart disease, Diabetes Sister Medical History: Lung disease, Diabetes, Cancer Father Medical History: Lung disease, Cancer - Social History Smoking Status: Unknown if ever smoked Alcohol use: No CD- Drugs: No Caffeine use: No Place of Residence: Home Review of Systems 10-point ROS is otherwise unremarkable General: Weakness Physical Examination Temp Pulse Resp BP Pulse Ox 97.3 F 66 16 147/65 H 99 05/10/23 04:00 05/10/23 04:00 05/10/23 04:00 05/10/23 04:00 05/10/23 04:00 General: Alert, In no apparent distress, Oriented x3 HEENT: Atraumatic, Normocephalic Respiratory: Normal air movement, Diminished, Other (on2L nasal cannula) Cardiovascular: No edema, Regular rate/rhythm Gastrointestinal: Normal bowel sounds, Soft and benign Integumentary: No rashes Urinary: Jeffers catheter Laboratory Data - Reviewed Microbiology Data - Reviewed Imagings Data: - Abdominal ultrasound 05/05: "Gallbladder neck calculus. No findings to suggest acute cholecystitis or biliary ductal dilation" Conclusions/Impression: Problem List Complicated Urinary Tract Infection Acute Pancreatitis Diastolic CHF, chronic Atrial Fibrillation Diabetes Mellitus type II COPD Hyperlipidemia Complicated Urinary Tract Infection, Pseudomonas Pyelonephritis Chronic Jeffers Catheter - Urine culture 05/05: Pseudomonas aeruginosa - Blood cultures 05/05: no growth to date - Currently on Cefepime (started 05/06) - CT abdomen: Pronounced peripancreatic edema, suggesting acute interstitial edematous pancreatitis. Incidentally noted pancreatic tail 1.4 cm cyst, likely an incidental cyst, for which a follow-up CT or MRI in 12 months would be recommended to ensure stability. Patchy areas of hypoattenuation in the renal cortex bilaterally, suggesting acute pyelonephritis. Pronounced wall thickening of the bladder, may suggest ongoing cystitis. Ascending infection simply consider. Cholelithiasis" - Leukocytosis improving - Afebrile Recommendations - Pyelonephritis, pseudomonas: Continue Cefepime IV x 14 days. - strict blood glucose control - continue supportive care Case discussed with Camden Bustillos
[2023-05-10] MEDS: NICOTINE 14 MG/PAT TD SCH (17:34)
[2023-05-10] MEDS: CEFEPIME 2 GM in NA CHLORIDE 0.9% 100 ML IV SCH (20:38)
[2023-05-11 06:52] LABS: Absolute Basophils 0.1 K/uL (0-0.5); Absolute Eosinophils 0.3 K/uL (0-0.5); Absolute Lymphocytes (CBC) 2.7 K/uL (0.7-4.9); Absolute Neutrophil 6.9 K/uL (1.8-8.0); Basophils % 0.6 % (0-1.3); Eosinophils % 2.9 % (0-4.4); Hematocrit 32.4 % (39.6-49.0); Hemoglobin 10.1 g/dL (13.6-17.9); Lymphocytes % 24.4 % (15.3-44.8); MCHC 31.3 g/dL (32.0-36.0); MCV 86.2 fL (80-100); MPV 7.7 fL (7.6-11.3); Monocytes % 9.4 % (3.3-12.3); Neutrophils % 62.7 % (41.7-73.7); Platelets 308 thou/uL (152-406); RBC Red Blood Cell Count 3.76 M/uL (4.33-5.43); Red Cell Distribution Width 18.8 % (12.1-15.2)
[2023-05-11 07:33] LABS: Albumin 2.6 g/dL (3.4-5.0); Albumin/Globulin Ratio 0.7 (1.1-1.8); Anion Gap 8.6 mEq/L (5.0-15.0); Bilirubin Total 0.4 mg/dL (0.2-1.0); Globulin 3.8 g/dL (2.3-3.5); Magnesium 2.3 mg/dL (1.6-2.4); Potassium 3.6 mEq/L (3.5-5.1); Protein, Total 6.4 g/dL (6.4-8.2)
[2023-05-11] MEDS: POTASSIUM CL SA 10 MEQ TAB PO ONE (09:05)
--- NOTE | 2023-05-11 09:51 | P.PN ---
Date of Service: 05/11/23 Infectious Disease Progress Note Chief Complaint: Pancreatitis, pyelonephritis Subjective: No acute events overnight. In no apparent distress. Denies any new or worsening complaints at this time. Plan of care discussed with patient and [id number] at bedside. Physical Examination Temp Pulse Resp BP Pulse Ox 97.5 F 79 16 179/83 H 95 05/11/23 08:00 05/11/23 08:00 05/11/23 08:00 05/11/23 08:00 05/11/23 08:00 General: Alert, In no apparent distress, Oriented x3 HEENT: Atraumatic, Normocephalic Respiratory: Normal air movement, Diminished at bases. Unlabored respirations on 2L nasal cannula. Cardiovascular: No edema, Regular rate/rhythm. Gastrointestinal: Normal bowel sounds, Soft and benign. Non-tender. Non- distended. Integumentary: No rashes Urinary: Perez catheter Laboratory Data - Reviewed Microbiology Data - Reviewed Imagings Data: - Abdominal ultrasound 05/05: "Gallbladder neck calculus. No findings to suggest acute cholecystitis or biliary ductal dilation" Medication List: Reviewed Assessment and Plan Problem List Complicated Urinary Tract Infection Acute Pancreatitis Diastolic CHF, chronic Atrial Fibrillation Diabetes Mellitus type II COPD Hyperlipidemia Syphilis Complicated Urinary Tract Infection, Pseudomonas Bilateral Pyelonephritis Chronic Perez Catheter - Urine culture 05/05: Pseudomonas aeruginosa - Blood cultures 05/05: no growth to date - Currently on Cefepime (started 05/06) - CT abdomen: "Pronounced peripancreatic edema, suggesting acute interstitial edematous pancreatitis. Incidentally noted pancreatic tail 1.4 cm cyst, likely an incidental cyst, for which a follow-up CT or MRI in 12 months would be recommended to ensure stability. Patchy areas of hypoattenuation in the renal cortex bilaterally, suggesting acute pyelonephritis. Pronounced wall thickening of the bladder, may suggest ongoing cystitis. Ascending infection simply consider. Cholelithiasis" - Leukocytosis improving - Afebrile Syphilis - Patient recently hospitalized in March for UTI. He was also found to test positive for syphilis. He reported being treated in the past as a teenager with a penicllin injection at the time. He also received Penicillin G IM during admission in March. - Daughter in law / patient report following up with infectious disease specialist in [place], [place] who started the patient on Doxycycline PO. Recommendations - Pyelonephritis, pseudomonas: Continue Cefepime 2g IV Q12H x 14 days. - pending PICC line/ Midline placement - perez catheter care - strict blood glucose control - nutritional supplementation Case discussed with Camden Bustillos
[2023-05-11 11:16] VITALS: O2SAT 95
[2023-05-11] MEDS: HYDRALAZINE HCL 20 MG/ML VIAL IV PRN (12:21)
--- NOTE | 2023-05-11 12:45 | RAD REPORT ---
EXAM DESCRIPTION: RAD - Chest Single View - 05/11/2023 12:37 pm CLINICAL HISTORY: PICC line placement COMPARISON: Chest Single View dated 04/08/2023; Chest Single View dated 01/08/2023; Chest Single View dated 01/01/2023; Chest Single View dated 01/01/2023 FINDINGS: Portable chest was obtained following placement of a right upper extremity PICC line. The catheter tip projects over the SVC.
[2023-05-11 16:30] VITALS: BP 148/78; TEMP 98.2
--- NOTE | 2023-05-11 18:49 | P.DS ---
Admission Date: 05/06/23 Discharge Date: 05/11/23 Disposition: DC HOME/HOME HEALTH CARE Discharge Condition: GOOD Reason for Admission: Pancreatitis, pyelonephritis Vital Signs/Physical Exam: Temp Pulse Resp BP Pulse Ox 98.2 F 81 18 148/78 H 93 05/11/23 16:00 05/11/23 16:00 05/11/23 16:00 05/11/23 16:00 05/11/23 16:00 Laboratory Data at Discharge: WBC 11.00 thou/uL (4.3-10.9) H 05/11/23 05:42 Hgb 10.1 g/dL (13.6-17.9) L 05/11/23 05:42 Hct 32.4 % (39.6-49.0) L 05/11/23 05:42 Plt Count 308 thou/uL (152-406) 05/11/23 05:42 PT 12.9 SECONDS (9.5-12.5) H 05/06/23 17:05 INR 1.18 05/06/23 17:05 APTT 29.8 SECONDS (24.3-36.9) 05/06/23 17:05 Sodium 138 mEq/L (136-145) 05/11/23 05:42 Potassium 3.6 mEq/L (3.5-5.1) 05/11/23 05:42 BUN 18 mg/dL (7-18) 05/11/23 05:42 Creatinine 1.15 mg/dL (0.70-1.30) 05/11/23 05:42 Glucose 79 mg/dL (74-106) 05/11/23 05:42 Magnesium 2.3 mg/dL (1.6-2.4) 05/11/23 05:42 Total Bilirubin 0.4 mg/dL (0.2-1.0) 05/11/23 05:42 AST 13 U/L (15-37) L 05/11/23 05:42 ALT 17 U/L (16-61) 05/11/23 05:42 Alkaline Phosphatase 98 U/L (45-117) 05/11/23 05:42 Triglycerides 113 mg/dL (<150) 05/06/23 21:04 Cholesterol 154 mg/dL (<200) 05/06/23 21:04 HDL Cholesterol 69 mg/dL (40-60) H 05/06/23 21:04 Cholesterol/HDL Ratio 2.23 05/06/23 21:04 Lipase 434 U/L (13-75) H 05/11/23 05:42 Home Medications: Benzonatate [Tessalon Perle*] 200 mg PO TID PRN #30 cap 12/09/21 predniSONE [Deltasone*] 10 mg PO DAILY 06/11/22 Amiodarone HCl [Cordarone*] 200 mg PO BID #60 tab 06/17/22 Apixaban [Eliquis *] 2.5 mg PO BID #60 tab 06/17/22 Umeclidinium Brm/Vilanterol Tr [Anoro Ellipta 62.5-25 Mcg INH] 1 each IH DAILY 30 Days #30 aero 01/09/23 Bupropion *Xl* [Wellbutrin XL*] 150 mg PO DAILY 30 Days #30 tab 03/18/23 Midodrine HCl [Proamatine*] 5 mg PO TID 30 Days #90 tab 03/18/23 Tamsulosin [Flomax*] 0.4 mg PO DAILY 30 Days #30 cap 03/18/23 Alfuzosin HCl 5 mg PO DAILY 05/07/23 Loperamide [Imodium*] 2 mg PO Q4H PRN 05/07/23 Mirtazapine 7.5 mg PO BEDTIME 05/07/23 Potassium Chloride 20 meq PO DAILY 05/07/23 Atorvastatin Calcium [Lipitor] 40 mg PO BEDTIME 30 Days #30 tab 05/11/23 Mupirocin Calcium [Bactroban Nasal*] 1 appl LEIGHTON BID 5 Days #1 tube 05/11/23 Roflumilast [Daliresp*] 500 mcg PO DAILY 30 Days #30 tab 05/11/23 New Medications: Mupirocin Calcium [Bactroban Nasal*] 1 appl LEIGHTON BID 5 Days #1 tube Roflumilast [Daliresp*] 500 mcg PO DAILY 30 Days #30 tab Atorvastatin Calcium [Lipitor] 40 mg PO BEDTIME 30 Days #30 tab Physician Discharge Instructions: 1. Please call and schedule a follow-up appointment with your PCP in 3-5 days - Please follow-up with your PCP for medication refills/adjustments 2. Please call and schedule a follow-up appointment with Dr. Jimenes in one week 3. Continue diabetic diet 4. No activity restrictions this admission, ambulates carefully 5. Return to ED if symptoms worsen 6. Continue IV antibiotic Cefepime 2 grams every 12 hours daily to end May 22. Home Health Agency: [facility] Home Health P:[phone] F:[phone] Home IV antibiotics: [id number], [place] [address] P/ Kalee: [phone] F Diet: ADA Activity: Fall precautions Followup: Uri Maldonado, [ACTIVE - CAN ADMIT] - Taylor Muñoz MD [Primary Care Provider] - 2-3 Days Ottoniel Jimenes [ACTIVE - CAN ADMIT] - 1 Week
[2023-05-11] MEDS ORDERED: Mupirocin NASAL 2 APPL/1 GM TUBE NAS SCH (21:00)
== END 2023-05-11 16:53 | disposition home health service (06) | DRG 698 ==
LOC: ER 12:33 → ERHOLD 17:34 → 4TH 18:42
PROVIDERS: ADMIT Hospitalist; ATTEND Internal Medicine
PROC: 0T9B70Z Drainage of Bladder with Drainage Device, Via Natural or Artificial Opening (ICD-10-PCS; principal; 2023-05-06)
PROC: 02HV33Z Insertion of Infusion Device into Superior Vena Cava, Percutaneous Approach (ICD-10-PCS; 2023-05-11)
DX: T83.511A Infection and inflammatory reaction due to indwelling urethral catheter, initial encounter (principal); K85.90 Acute pancreatitis without necrosis or infection, unspecified; I50.32 Chronic diastolic (congestive) heart failure; K86.2 Cyst of pancreas; N10 Acute pyelonephritis; I11.0 Hypertensive heart disease with heart failure; F32.A Depression, unspecified; E78.5 Hyperlipidemia, unspecified; I95.89 Other hypotension; E11.9 Type 2 diabetes mellitus without complications; A53.9 Syphilis, unspecified; I48.91 Unspecified atrial fibrillation; K80.20 Calculus of gallbladder without cholecystitis without obstruction; J44.9 Chronic obstructive pulmonary disease, unspecified; B96.5 Pseudomonas (aeruginosa) (mallei) (pseudomallei) as the cause of diseases classified elsewhere; R33.9 Retention of urine, unspecified; Z88.1 Allergy status to other antibiotic agents; Z88.8 Allergy status to other drugs, medicaments and biological substances; Z99.81 Dependence on supplemental oxygen; Z79.01 Long term (current) use of anticoagulants; Z79.52 Long term (current) use of systemic steroids; Z79.899 Other long term (current) drug therapy; Z87.891 Personal history of nicotine dependence
CPT/HCPCS: 36415; 71045; 71275; 74175; 76705; 80048; 80053; 80061; 80076; 81001; 82947; 83605; 83690; 83735; 83880; 84484; 85025; 85610; 85730; 87040; 87077; 87086; 87088; 87186; 93005; 96365; 96375; 99285; J0360; J0692; J0696; J1170; J2270; J2405; J7030; J7040; J7512; Q9967

== ENCOUNTER 2023-09-23 06:32 | Day surgery (SDC) | payer OTHER ==
[2023-09-16 13:49] LABS: Absolute Basophils 0.1 K/uL (0-0.5); Absolute Eosinophils 0.5 K/uL (0-0.5); Absolute Lymphocytes (CBC) 2.9 K/uL (0.7-4.9); Absolute Neutrophil 12.6 K/uL (1.8-8.0); Basophils % 0.6 % (0-1.3); Eosinophils % 2.7 % (0-4.4); Hematocrit 31.8 % (39.6-49.0); Hemoglobin 9.7 g/dL (13.6-17.9); Lymphocytes % 17.3 % (15.3-44.8); MCH 25.5 pg (27.0-35.0); MCHC 30.5 g/dL (32.0-36.0); MCV 83.6 fL (80-100); MPV 7.5 fL (7.6-11.3); Monocytes % 5.6 % (3.3-12.3); Neutrophils % 73.8 % (41.7-73.7); Platelets 357 thou/uL (152-406); Red Cell Distribution Width 20.6 % (12.1-15.2)
[2023-09-16 14:00] LABS: Anion Gap 9.4 mEq/L (5.0-15.0); Potassium 4.4 mEq/L (3.5-5.1)
[2023-09-16 14:38] LABS: PT Prothrombin Time 11.2 SECONDS (9.4-12.5); PTT, Activated Partial Thromb 25.9 SECONDS (24.3-36.9)
[2023-09-16 14:56] LABS: Blood Morphology Comment NOTED (NOT SEEN); Platelet Estimate ADEQ; White Blood Cell Scan OK (OK)
[2023-09-16 14:57] LABS: Anisocytosis 1+
[2023-09-23] MEDS ORDERED: FENTANYL CITR 100 MCG/2 ML ONE (07:09)
[2023-09-23] MEDS ORDERED: LIDOCAINE 1% MPF 5 ML VIAL ONE (07:09)
[2023-09-23] MEDS ORDERED: ONDANSETRON 4 MG/2 ML VIAL ONE (07:09)
[2023-09-23] MEDS ORDERED: propofoL 200 MG/20 ML VIAL IV ONE (07:09)
[2023-09-23] MEDS: Ringers Lactate 1,000 ML IV ONE (07:55)
[2023-09-23] MEDS: CEFEPIME 1 GM/VIAL ONE (08:09)
[2023-09-23] MEDS ORDERED: EPHEDRINE SULF 50 MG/ML VIAL ONE (08:12)
[2023-09-23] MEDS ORDERED: dexAMETHasone 10 MG/ML VIAL ONE (08:20)
[2023-09-23] MEDS ORDERED: PHENAZOPYRIDINE 100MG TAB PO ONE (09:10)
[2023-09-23] MEDS ORDERED: CODEINE 30MG/APAP 300MG TAB PO PRN (09:10)
--- NOTE | 2023-09-23 12:05 | OP ---
Surgeon: DEBORAH LAY Preoperative Diagnoses: 1.Benign prostatic hypertrophy with urinary retention. 2.Left hydronephrosis, suspected UPJ obstruction. 3.Status post left ureteral stent placement. Postoperative Diagnoses: 1.Benign prostatic hypertrophy with urinary retention. 2.Left hydronephrosis, suspected UPJ obstruction. 3.Status post left ureteral stent placement. Principal Procedures: 1.Cystoscopy and left ureteral stent extraction. 2.Prostatic urethral lift/UroLift with 7 implants placed, 6 UL2 devices and 1 UL1 ATC device. 3.Urethral Jeffers catheter placement. Indication For Procedure: Mr. Marcelino presented to the Urology Clinic with obstruction and urinary r etention. He also had hydronephrosis on the left side that persisted despite placement of urethral F oley catheter. 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 As a result, I placed a left ureteral stent and the patient was evaluated fo r his outlet obstruction. Urodynamics evaluation revealed a weak detrusor contractility, and he was counseled on the potential for inability to void despite surgical intervention to manage his prostati c urethral obstruction. Transrectal ultrasonography revealed a small prostate, but lateral lobar int rusion obstructing the urethral lumen. Procedure In Detail: The patient was consented in the preoperative holding area before being transfe rred to the operative suite where general anesthesia was induced. He was taking Levaquin oral antimi crobial prophylaxis and he took a dose this morning. He was additionally given a dose of cefepime 1 g for IV antimicrobial prophylaxis, given the resistant organisms in his urine associated with chroni c indwelling catheter. The indwelling urethral Jeffers catheter was removed after he was placed in the lithotomy position, padded and secured to the table appropriately. His genitalia were then prepped with Hibiclens and draped in standard fashion. The case was begun using a 22-Nepalese rigid cystoscope to traverse the urethra and into the bladder with ease. The bladder was decompressed of fluid and u rine with a slight degree of debris before being irrigated ostensibly with normal saline. It was the n surveyed in its entirety, and other than a slight degree of papillary mucosal development in the po sterior of the bladder, consistent with catheter trauma, no other papillary mucosal lesions, foreign bodies, or stones were noted throughout with the exception of the left ureteral stent which was emana ting from the left ureteral orifice in good position. As a result, I used an alligator grasper to gr asp the coil of the stent and deliver it via the cystoscope with both coils intact and with ease. I then irrigated and decompressed his bladder further until the returning fluid was crystal clear. I t hen removed the cystoscope and replaced it with a 20-Nepalese UroLift sheath and a visual obturator. U amy entry into the bladder, I switched the visual obturator for a UroLift delivery device. I targete d the first UL2 device on the patient's left side about 1.5 to 2 cm distal to the bladder neck openin g. I targeted this at around the 9 o'clock position and angled the scope about 15 degrees against th e tissue before pulling the trigger once delivering the needle through the substance of the prostate. I then angled the scope an additional 15 degrees laterally to compress the tissue before pulling th e trigger a second time to ensure the needle was completely delivered to the capsular surface and the capsular tab was deployed as the needle was partially retracted. I then pulled the trigger a third time which completely retracted the needle and began to tension the suture. I then advanced the scop e back toward the midline and 2 to 3 mm towards the bladder neck opening until the white line of the monofilament was centered in the delivery [place], and at this point, I pulled the trigger a fourth time delivering the urethral in piece, which did lateralize the tissue in that location, taking it down at around the 3 to 4 o'clock position. I thus advanced the scope and delivery device back into the pat ient's bladder and switched for a new implant, which this time was started on the patient's right ryan e at the bladder neck 1.5 to 2 cm distal to the bladder neck opening, but more anterolateral at aroun d the 11 o'clock position. This did nicely elevate the channel, but it caused the anterior component of the left side of the bladder neck to now fall into the prostatic urethral lumen. As a result, I placed a third implant more anterolaterally at the bladder neck at around the 1 o'clock position elev ating the channel in that location. I then turned my attention to the apex where I placed an additio nal implant at the patient's left apex and then the right apex at the level of the verumontanum. I t hen surveyed the channel created, and at this point, with the 3 implants having been placed at the bl adder neck at the 1 o'clock position, the 3 o'clock position, and at the 11 o'clock position, there w as some inferolateral intrusion into the bladder neck opening emanating from the right side. As a re sult, I used an UL1 APC device to grab that tissue and hold it over laterally at the 8 to 9 o'clock p osition, and I pinned that tissue down laterally beautifully. Because the APC device deployed the im plant much more vigorously, it did partially distort the bladder neck again at this point, making the anterolateral aspect of the left portion of the bladder neck opening now partially fall into the ure thral lumen again. As a result, I used an additional implant, the seventh and final implant to again elevate that tissue between the implant placed at the 1 o'clock position and the 1 placed at the 3 t o 4 o'clock position in order to ensure the channel remained open. In the end, there was a continuou s anterior channel evident from the verumontanum into the bladder neck that allowed decompression wit h the scope situated at the verumontanum. The urine was minimally pink at this point; so I retrograd e filled his bladder with saline and removed the scope. I then placed a 20-Nepalese urethral Jeffers cat heter via his urethra into his bladder with ease. I placed 25 cc of sterile water in the balloon, an d the catheter was allowed to decompress. The fluid draining was minimally pink to clear. The shai ter was connected to a leg bag, and he was taken out of the lithotomy position. He was then awakened from general anesthesia before being transferred to a stretcher. He was then transferred to the rec overy room in good condition. Complications: None. Discharge Disposition: He will be standard UroLift followup pathway with a voiding trial to be condu cted in the recovery room. Should he fail that voiding trial, the catheter will be reinserted and he may have an additional attempt tomorrow morning in the Urology Clinic. If a voiding trial is in any way equivocal, the catheter should be inserted. In other words, if he only voids minimally over half of the volume instilled, that should be considered a failure. Additionally, given his prior left hydronephrosis suspected UPJ obstruction, we will re-evaluate in a bout 4 to 6 weeks to see if there is any recurrence or persistence of the left-sided hydronephrosis s cary the stent was removed. If so, consideration for the Mag 3 Lasix renography will then be given t o determine the benefit of potentially further surgical intervention or replacement of the left ureteral stent. LORE/RIZWAN Voice ID: [id number] Report ID: [id number]
[2023-09-23 12:32] VITALS: BP 142/65; O2SAT 98
[2023-09-23 12:37] VITALS: TEMP 97.6
== END 2023-09-23 12:29 | disposition home or self-care (01) ==
LOC: OR 06:32
PROVIDERS: ATTEND Urology
PROC: 0TP98DZ Removal of Intraluminal Device from Ureter, Via Natural or Artificial Opening Endoscopic (ICD-10-PCS; principal; 2023-09-23 07:30)
PROC: 0T7D8DZ Dilation of Urethra with Intraluminal Device, Via Natural or Artificial Opening Endoscopic (ICD-10-PCS; 2023-09-23 07:30)
DX: N40.1 Benign prostatic hyperplasia with lower urinary tract symptoms (principal); N13.5 Crossing vessel and stricture of ureter without hydronephrosis; R33.8 Other retention of urine; N13.30 Unspecified hydronephrosis
CPT/HCPCS: 36415; 80048; 82947; 85025; 85610; 85730; 87086; 87088; J0692; J1100; J2001; J2405; J2704; J3010; J7120

== ENCOUNTER 2024-01-13 07:06 | Inpatient (IN) | payer OTHER ==
[2024-01-13] MEDS ORDERED: MORPHINE 4 MG/ML SYR ONE (07:52)
[2024-01-13] MEDS ORDERED: ONDANSETRON 4 MG/2 ML VIAL ONE (07:52)
[2024-01-13] MEDS ORDERED: NA CHLORIDE 0.9% 1,000 ML ONE (07:53)
[2024-01-13 07:56] LABS: Absolute Basophils 0.1 K/uL (0-0.5); Absolute Eosinophils 0.6 K/uL (0-0.5); Absolute Lymphocytes (CBC) 2.7 K/uL (0.7-4.9); Absolute Monocytes 1.3 K/uL (0.1-1.3); Absolute Neutrophil 16.7 K/uL (1.8-8.0); Basophils % 0.6 % (0-1.3); Eosinophils % 2.8 % (0-4.4); Hematocrit 32.8 % (39.6-49.0); Hemoglobin 10.1 g/dL (13.6-17.9); Lymphocytes % 12.5 % (15.3-44.8); MCH 23.2 pg (27.0-35.0); MCHC 30.7 g/dL (32.0-36.0); MCV 75.5 fL (80-100); MPV 6.7 fL (7.6-11.3); Monocytes % 6.2 % (3.3-12.3); Neutrophils % 77.9 % (41.7-73.7); Platelets 419 thou/uL (152-406); RBC Red Blood Cell Count 4.34 M/uL (4.33-5.43); Red Cell Distribution Width 18.2 % (12.1-15.2)
[2024-01-13 08:00] LABS: PT Prothrombin Time 14.6 SECONDS (9.4-12.5); Protime INR 1.31
[2024-01-13 08:11] LABS: Specific Gravity 1.021 (1.005-1.030); Sqamous Epithelial None Seen /HPF (None Seen); Urine Bacteria 20-50 /HPF (<20); Urine Bilirubin NEGATIVE (Negative); Urine Blood Trace (Negative); Urine Clarity Extremely Turbid (Clear); Urine Color Yellow (Yellow); Urine Culture Reflex Order REFLEXED; Urine Glucose NEGATIVE (Negative); Urine Ketones NEGATIVE (Negative); Urine Microscopic Reflex YN ORDER UMIC; Urine Mucus 2+ /HPF (None Seen); Urine Nitrite NEGATIVE (Negative); Urine Protein 1+ (Negative); Urine Urobilinogen 1+ (Normal); Urine WBC >50 /HPF (<5); Urine WBC Clump Rare /HPF (None Seen)
[2024-01-13 08:21] LABS: Albumin 2.3 g/dL (3.4-5.0); Albumin/Globulin Ratio 0.6 (1.1-1.8); Anion Gap 10.1 mEq/L (5.0-15.0); Bilirubin Total 0.7 mg/dL (0.2-1.0); Globulin 3.9 g/dL (2.3-3.5); Potassium 3.1 mEq/L (3.5-5.1); Protein, Total 6.2 g/dL (6.4-8.2); Troponin High Sensitivity 12.9 pg/mL (<58.9)
--- NOTE | 2024-01-13 08:45 | RAD REPORT ---
EXAMINATION: CT ABDOMEN AND PELVIS WITH CONTRAST CLINICAL INDICATION: Abdominal pain TECHNIQUE: CT abdomen and pelvis was performed, after the administration of 100 cc Isovue-300.. Sagit mj and coronal reconstructions were obtained. One or more of the following dose reduction techniques were used: Automated exposure control, adjustment of the mA and kV according to patient si ze, and iterative reconstruction. Unless otherwise specified, incidental findings do not require dedicated imaging follow-up. [id number]. Oral contrast was not given which limits evaluation of bowel and appendix. COMPARISON: .April 2023 FINDINGS: Mild patchy bilateral lower lobe opacities probably inflammatory. 6 mm stone within the neck of the gallbladder. Mild gallbladder distention. Mild to moderate peripancreatic stranding. Several cystic structures pancreatic tail. Largest 1.1 cm. Liver, spleen, adrenals and kidneys appear unremarkable.. Soft tissue structure medial to the spleen probably an accessory spleen. No evidence of diverticulitis.. Mild thickening of the wall of the ascending colon and cecum. Trace a mount of the pelvis. Jeffers catheter within the bladder. The superior aspect of the catheter abuts the wall of the bladder. : IMPRESSION: Cholelithiasis with mild gallbladder distention Mild to moderate pancreatitis Small cystic structures pancreatic tail probably pseudocysts. Apparent mild thickening wall ascending colon and cecum may indicate a mild colitis or be secondary t o incomplete distention
[2024-01-13 08:53] LABS: SARS-CoV-2 Antigen CONTROL BLUE LINE VIS/BG OK; SARS-CoV-2 Antigen Rapid Res Negative (Negative)
--- NOTE | 2024-01-13 09:04 | EDPHYS ---
Physician Documentation [facility] Name: Jose Marcelino Age: 73 yrs Sex: Male : 1950 Arrival Date: 01/13/2024 Time: 07:06 Bed 17 Private MD: ED Physician Aj Maldonado HPI: 01/12 07:31 This 73 yrs old Male presents to ER via EMS with complaints of Abdominal Pain, sp3 Nausea/Vomiting/Diarrhea. 07:31 73-year-old male with history of atrial fibrillation on Eliquis, COPD, CHF, diabetes sp3 now presents to the ED with chief complaint left lower quadrant abdominal pain, vomiting and diarrhea. Symptoms been going on for 2 days progressively getting worse. Prehospital blood sugar was at 48 to which patient received oral glucose. He denies any fever, URI symptoms, cough, chest pain, shortness of breath, rash, bleeding, or visualized melena. Remainder of review of systems are negative.. Historical: - Allergies: 07:05 limestone; db 07:05 hydrochlorothiazide; db 07:05 Atrovent; db 07:05 Amoxicillin; db - Home Meds: 07:05 Eliquis 2.5 mg Oral tablet 1 tab 2 times per day [Active]; amiodarone 200 mg Oral db tablet 1 tab 2 times per day [Active]; Furosemide Oral [Active]; Albuterol Inhl [Active]; prednisone 20 mg Oral tablet 2 times per day [Active]; atorvastatin oral [Active]; Bupropion Oral [Active]; - PMHx: 07:05 Asthma; Atrial fibrillation; Chronic obstructive lung disease; Congestive heart db failure; diabetes mellitus; Hypertensive disorder; - Immunization history:: Adult Immunizations unknown. - Infectious Disease History:: Denies. - Social history:: Smoking status: Patient/guardian denies using tobacco, but has a distant history of tobacco abuse. ROS: 07:32 Constitutional: Negative for fever, chills, and weight loss, Eyes: Negative for injury, sp3 pain, redness, and discharge, ENT: Negative for injury, pain, and discharge, Neck: Negative for injury, pain, and swelling, Cardiovascular: Negative for chest pain, palpitations, and edema, Respiratory: Negative for shortness of breath, cough, wheezing, and pleuritic chest pain, Back: Negative for injury and pain, MS/Extremity: Negative for injury and deformity, Skin: Negative for injury, rash, and discoloration, Neuro: Negative for headache, weakness, numbness, tingling, and seizure, Psych: Negative for depression, anxiety, suicide ideation, homicidal ideation, and hallucinations, Allergy/Immunology: Negative for hives, rash, and allergies, Endocrine: Negative for neck swelling, polydipsia, polyuria, polyphagia, and marked weight changes, Hematologic/Lymphatic: Negative for swollen nodes, abnormal bleeding, and unusual bruising, 07:32 All other systems are negative, Exam: 07:33 Constitutional: This is a well developed, well nourished patient who is awake, alert, sp3 and in no acute distress. Head/Face: Normocephalic, atraumatic. Eyes: Pupils equal round and reactive to light, extra-ocular motions intact. Lids and lashes normal. Conjunctiva and sclera are non-icteric and not injected. Cornea within normal limits. Periorbital areas with no swelling, redness, or edema. ENT: Nares patent. No nasal discharge, no septal abnormalities noted. External auditory canals are clear. Oropharynx with no redness, swelling, or masses, exudates, or evidence of obstruction, uvula midline. Mucous membranes moist. Neck: Trachea midline, no thyromegaly or masses palpated, and no cervical lymphadenopathy. Supple, full range of motion without nuchal rigidity, or vertebral point tenderness. No Meningismus. Chest/axilla: Normal chest wall appearance and motion. Nontender with no deformity. No lesions are appreciated. Cardiovascular: Regular rate and rhythm with a normal S1 and S2. No gallops, murmurs, or rubs. Normal PMI, no JVD. No pulse deficits. Respiratory: Lungs have equal breath sounds bilaterally, clear to auscultation and percussion. No rales, rhonchi or wheezes noted. No increased work of breathing, no retractions or nasal flaring. Back: No spinal tenderness. No costovertebral tenderness. Full range of motion. Skin: Warm, dry with normal turgor. Normal color with no rashes, no lesions, and no evidence of cellulitis. MS/ Extremity: Pulses equal, no cyanosis. Neurovascular intact. Full, normal range of motion. Neuro: Awake and alert, GCS 15, oriented to person, place, time, and situation. Cranial nerves II-XII grossly intact. Motor strength 5/5 in all extremities. Sensory grossly intact. Cerebellar exam normal. Normal gait. Psych: Awake, alert, with orientation to person, place and time. Behavior, mood, and affect are within normal limits. 07:33 Abdomen/GI: Left lower quadrant abdominal pain to palpation without peritoneal signs, rebound or guarding., 08:32 ECG was reviewed by the Attending Physician. EKG demonstrates normal sinus rhythm at 60 sp3 bpm with a first-degree AV block with MT interval 228, right bundle branch block nonspecific diffuse ST's ST changes without evidence of acute ischemia. Vital Signs: 07:13 BP 143 / 81; Pulse 65; Resp 16; Temp 99.6(O); Pulse Ox 94% on R/A; Weight 65.77 kg; db Height 5 ft. 8 in. ; Pain 6/10; 08:15 BP 115 / 38; Pulse 59; Resp 16; Pulse Ox 100% on 2 lpm NC; db 09:00 BP 140 / 39; Pulse 58; Resp 16; Pulse Ox 100% ; db 10:00 BP 147 / 47; Pulse 67; Resp 20; Pulse Ox 99% on R/A; db 10:30 BP 147 / 42; Pulse 58; Resp 16; Temp 98.8; Pulse Ox 99% ; db 07:13 Body Mass Index 22.05 (65.77 kg, 172.72 cm) db 07:13 Pain Scale: Adult db MDM: 07:06 Medical Screening Exam initiated sp3 07:33 Data reviewed: vital signs, nurses notes, lab test result(s), EKG, radiologic studies. sp3 ED course: 73-year-old male with PMH above now with abdominal pain, hypoglycemia and vomiting and diarrhea. Differential diagnosis includes diverticulitis, dehydration, electrolyte abnormality, viral illness, and to lesser degree acute coronary syndrome among others. Workup will include CT scan of the abdomen pelvis with IV contrast, general labs including lactate, viral swabs and general supportive care. Normal saline, morphine, Zofran given for symptomatic control. Disposition pending workup and patient course.. 12 07:20 Order name: CBC with Diff; Complete Time: 10:05 sp3 12 07:20 Order name: CMP; Complete Time: 08:47 sp3 12 07:20 Order name: Lipase; Complete Time: 08:47 sp3 01/12 07:20 Order name: Urinalysis w/ reflexes; Complete Time: 08:47 sp3 01/12 07:20 Order name: PT-INR; Complete Time: 08:47 sp3 01/12 07:20 Order name: Troponin High Sensitivity; Complete Time: 08:47 sp3 01/12 07:20 Order name: Lactate w/ 2H reflex if indic.; Complete Time: 08:47 sp3 01/12 07:23 Order name: Glucose, Ancillary Testing; Complete Time: 08:47 EDMS 01/12 07:34 Order name: SARS RAPID; Complete Time: 09:05 sp3 01/12 07:34 Order name: Flu; Complete Time: 09:05 sp3 01/12 08:16 Order name: Urine Culture EDMS 01/12 09:07 Order name: CBC Smear Scan; Complete Time: 10:05 EDMS 01/12 09:22 Order name: Blood Culture Adult (2) la1 01/12 07:20 Order name: CT Abd/Pelvis - IV Contrast Only; Complete Time: 08:47 sp3 01/12 09:02 Order name: US Abdomen Limited; Complete Time: 10:05 sp3 01/12 10:27 Order name: Cholangiogram EDMS 01/12 10:35 Order name: Echo with Doppler EDMS 01/12 07:20 Order name: EKG; Complete Time: 07:20 sp3 01/12 07:20 Order name: IV Saline Lock; Complete Time: 07:59 sp3 01/12 07:20 Order name: Labs collected and sent; Complete Time: 07:59 sp3 01/12 07:20 Order name: EKG - Nurse/Tech; Complete Time: 07:59 sp3 Administered Medications: 07:52 Drug: Ondansetron IVP 4 mg IVP once; over 2 minutes Route: IVP; Site: right forearm; db 10:30 Follow up: Response: No adverse reaction db 07:52 Drug: morphine IVP or IV 4 mg IVP once over 4 mins Route: IVP; Infused Over: 4 mins; db Site: right forearm; 10:30 Follow up: Response: No adverse reaction db 07:52 Drug: NS 0.9% IV 1000 ml IV at 1 bolus Per protocol; to be given as a bolus over 60 db minutes Route: IV; Rate: 1 bolus; Site: right forearm; 10:00 Follow up: Response: No adverse reaction; IV Status: Completed infusion; IV Intake: db 1000ml 10:09 Drug: Cefepime IVPB 2 grams IVPB at 200 ml/hr once over 30 mins; (mix in NS 100 mL) db Route: IVPB; Rate: 200 ml/hr; Infused Over: 30 mins; Site: right forearm; 11:00 Follow up: Response: No adverse reaction; IV Status: Completed infusion; IV Intake: db 100ml Point of Care Testing: Blood Glucose: 07:04 Blood Glucose: 75 mg/dL; db Ranges: Critical Glucose Levels:Adult <50 mg/dl or >400 mg/dl <40 mg/dl or >180 mg/dl Disposition Summary: 01/13/24 09:03 Hospitalization Ordered Notes: Hospitalization Status: Inpatient Admission sp3 Provider: Nav Fuentes sp3 Location: Telemetry/[facility] (Inpatient) sp3 Condition: Stable sp3 Problem: new sp3 Symptoms: have worsened sp3 Bed/Room Type: Standard sp3 Room Assignment: 202(01/13/24 10:33) bd Diagnosis - Urosepsis, abdominal pain, distended gallbladder sp3 Forms: - Medication Reconciliation Form sp3 - SBAR form sp3 - Leadership Thank You Letter sp3 Signatures: Dispatcher [employer] EDID Lilia Ariza Lee, CIVIL LAWYER-C CIVIL LAWYER-Cla1 Aj Maldonado MD MD sp3 Hannah Mcconnell, RN RN db Corrections: (The following items were deleted from the chart) 09:22 09:22 BLOOD CULTURE*+[email or web address].BRZ ordered. [facility] EDID 10:33 09:03 sp3 bd
--- NOTE | 2024-01-13 09:04 | ER ---
Nurse's Notes [facility] Name: Jose Marcelino Age: 73 yrs Sex: Male : 1950 Arrival Date: 01/13/2024 Time: 07:06 Bed 17 Private MD: Diagnosis: Urosepsis, abdominal pain, distended gallbladder Presentation: 01/12 07:13 Chief complaint: EMS states: ABD PAIN SINCE 2200 LAST NIGHT W/NAUSEA/VOMITING AND db DIARRHEA. BG FOR EMS 48, ORAL GLUCOSE GIVEN. LEFT ABD PAIN 07/18. Coronavirus screen: Client denies travel out of the [place] in the last 14 days. At this time, the client does not indicate any symptoms associated with coronavirus-19. Ebola Screen: Patient negative for fever greater than or equal to 101.5 degrees Fahrenheit, and additional compatible Ebola Virus Disease symptoms Patient denies exposure to infectious person. Patient denies travel to an Ebola-affected area in the 21 days before illness onset. No symptoms or risks identified at this time. Initial Sepsis Screen: Does the patient meet any 2 criteria? No. Patient's initial sepsis screen is negative. Does the patient have a suspected source of infection? No. Patient's initial sepsis screen is negative. Risk Assessment: Do you want to hurt yourself or someone else? Patient reports no desire to harm self or others. Onset of symptoms was January 12, 2024 at 22:00. Care prior to arrival: Medication(s) given: Glucagon, Glucose check: 48. 07:13 Method Of Arrival: EMS: [facility] db 07:13 Acuity: [facility] 2 db Triage Assessment: 07:05 General: Appears in no apparent distress. uncomfortable, Behavior is calm, cooperative, db appropriate for age. Pain: Complains of pain in abdomen. Neuro: Level of Consciousness is awake, alert, obeys commands, Oriented to person, place, time, situation. Respiratory: Airway is patent Respiratory effort is even, unlabored, Respiratory pattern is regular, symmetrical. GI: Abdomen is flat, non-distended, Abdomen is tender to palpation in right upper quadrant and right lower quadrant. GI: Reports diarrhea, nausea, vomiting. Historical: - Allergies: 07:05 limestone; db 07:05 hydrochlorothiazide; db 07:05 Atrovent; db 07:05 Amoxicillin; db - Home Meds: 07:05 Eliquis 2.5 mg Oral tablet 1 tab 2 times per day [Active]; amiodarone 200 mg Oral db tablet 1 tab 2 times per day [Active]; Furosemide Oral [Active]; Albuterol Inhl [Active]; prednisone 20 mg Oral tablet 2 times per day [Active]; atorvastatin oral [Active]; Bupropion Oral [Active]; - PMHx: 07:05 Asthma; Atrial fibrillation; Chronic obstructive lung disease; Congestive heart db failure; diabetes mellitus; Hypertensive disorder; - Immunization history:: Adult Immunizations unknown. - Infectious Disease History:: Denies. - Social history:: Smoking status: Patient/guardian denies using tobacco, but has a distant history of tobacco abuse. Screenin:04 [facility] ED Fall Risk Assessment (Adult) History of falling in the last 3 months, db including since admission No falls in past 3 months (0 pts) Confusion or Disorientation No (0 pts) Intoxicated or Sedated No (0 pts) Impaired Gait No (0 pts) Mobility Assist Device Used No (0 pt) Altered Elimination No (0 pt) Score/Fall Risk Level 0 - 2 = Low Risk Oriented to surroundings, Maintained a safe environment. Abuse screen: Denies threats or abuse. Denies injuries from another. Nutritional screening: No deficits noted. Tuberculosis screening: No symptoms or risk factors identified. Assessment: 07:23 Reassessment: SEE TRIAGE FOR INITIAL ASSESSMENT. db 07:30 : Guzman in place to gravity drainage. db 08:22 Reassessment: Patient appears in no apparent distress at this time. Patient and/or db family updated on plan of care and expected duration. Pain level reassessed. Patient is alert, oriented x 3, equal unlabored respirations, skin warm/dry/pink. General: Appears in no apparent distress. comfortable, Behavior is calm, cooperative. Neuro: Level of Consciousness is awake, alert, obeys commands, Oriented to person, place, time, situation. Respiratory: Airway is patent Respiratory effort is even, unlabored, Respiratory pattern is regular, symmetrical. GI: Bowel sounds present X 4 quads. 09:17 Reassessment: SHEET METAL FABRICATOR IS AT PATIENT BEDSIDE. db 10:00 Reassessment: Patient appears in no apparent distress at this time. Patient and/or db family updated on plan of care and expected duration. Pain level reassessed. Patient is alert, oriented x 3, equal unlabored respirations, skin warm/dry/pink. PATIENT WITH STOOL ALL OVER CLOTHES AND SELF. CLEANED PATIENT AND CLEANED AROUND PATIENT GUZMAN CATHETER. PATIENT CHANGED INTO A GOWN. 11:16 Reassessment:. db 11:43 Reassessment: Patient appears in no apparent distress at this time. Patient and/or db family updated on plan of care and expected duration. Pain level reassessed. Patient is alert, oriented x 3, equal unlabored respirations, skin warm/dry/pink. General: Appears in no apparent distress. comfortable. Vital Signs: 07:13 BP 143 / 81; Pulse 65; Resp 16; Temp 99.6(O); Pulse Ox 94% on R/A; Weight 65.77 kg; db Height 5 ft. 8 in. ; Pain 6/10; 08:15 BP 115 / 38; Pulse 59; Resp 16; Pulse Ox 100% on 2 lpm NC; db 09:00 BP 140 / 39; Pulse 58; Resp 16; Pulse Ox 100% ; db 10:00 BP 147 / 47; Pulse 67; Resp 20; Pulse Ox 99% on R/A; db 10:30 BP 147 / 42; Pulse 58; Resp 16; Temp 98.8; Pulse Ox 99% ; db 07:13 Body Mass Index 22.05 (65.77 kg, 172.72 cm) db 07:13 Pain Scale: Adult db ED Course: 07:05 Arm band placed on Patient placed in an exam room. db 07:06 Patient arrived in ED. [email or web address] 07:06 Aj Maldonado MD is Attending Physician. sp3 07:12 Hannah Mcconnell, RN is Primary Nurse. db 07:19 Triage completed. db 07:37 Initial lab(s) drawn, by me, sent to lab. Inserted saline lock: 22 gauge in right db forearm, using aseptic technique. Blood collected. Flushed with 10 mL NS. 08:[address] via stretcher. db 08:04 Flu Sent. db 08:04 SARS RAPID Sent. db 08:16 CT Abd/Pelvis - IV Contrast Only In Process Unspecified. EDMS 08:21 Patient has correct armband on for positive identification. Bed in low position. Call db light in reach. Side rails up X 1. Pulse ox on. NIBP on. Warm blanket given. 09:03 Nav Fuentes MD is Hospitalizing Provider. sp3 09:29 US Abdomen Limited In Process Unspecified. EDMS 11:43 Provided Education on: ADMISSION. db 11:43 No provider procedures requiring assistance completed. Patient admitted, IV remains in db place. Administered Medications: 07:52 Drug: Ondansetron IVP 4 mg IVP once; over 2 minutes Route: IVP; Site: right forearm; db 10:30 Follow up: Response: No adverse reaction db 07:52 Drug: morphine IVP or IV 4 mg IVP once over 4 mins Route: IVP; Infused Over: 4 mins; db Site: right forearm; 10:30 Follow up: Response: No adverse reaction db 07:52 Drug: NS 0.9% IV 1000 ml IV at 1 bolus Per protocol; to be given as a bolus over 60 db minutes Route: IV; Rate: 1 bolus; Site: right forearm; 10:00 Follow up: Response: No adverse reaction; IV Status: Completed infusion; IV Intake: db 1000ml 10:09 Drug: Cefepime IVPB 2 grams IVPB at 200 ml/hr once over 30 mins; (mix in NS 100 mL) db Route: IVPB; Rate: 200 ml/hr; Infused Over: 30 mins; Site: right forearm; 11:00 Follow up: Response: No adverse reaction; IV Status: Completed infusion; IV Intake: db 100ml Medication: 10:30 VIS not applicable for this client. db Point of Care Testing: Blood Glucose: 07:04 Blood Glucose: 75 mg/dL; db Ranges: Intake: 10:00 IV: 1000ml; Total: 1000ml. db 11:00 IV: 100ml; Total: 1100ml. db Outcome: 09:03 Decision to Hospitalize by Provider. sp3 11:43 Admitted to Med/surg via stretcher, room 202, Report called to FAXED db 11:43 Condition: stable 11:43 Instructed on the need for admit, 11:44 Patient left the ED. db Signatures: Dispatcher [employer] EDMS Aj Maldonado MD MD sp3 Barbra [email or web address] Hannah Mcconnell RN RN db Corrections: (The following items were deleted from the chart) 07:23 Reassessment: SEE TRIAGE FOR INITIAL ASSESSMENT db db 10:52 10:52 : Guzman in place to gravity drainage db db
[2024-01-13 09:07] LABS: Blood Morphology Comment NOT SEEN (NOT SEEN); Platelet Estimate ADEQ; White Blood Cell Scan OK (OK)
[2024-01-13] MEDS ORDERED: CEFEPIME 2 GM VIAL ONE (09:23)
[2024-01-13] MEDS ORDERED: NA CHLORIDE 0.9% 100 ML ONE (09:24)
--- NOTE | 2024-01-13 09:45 | RAD REPORT ---
EXAM: Right upper quadrant ultrasound. CLINICAL HISTORY: Abdominal pain COMPARISON: CT abdomen January 13, 2024 FINDINGS: A 5 mm stone within the gallbladder. Gallbladder is distended. Small to moderate amount of sludge is present within the gallbladder. Gallbladder wall not thickened. Biliary tree normal caliber IMPRESSION: Cholelithiasis. Mild to moderate gallbladder distention.
--- NOTE | 2024-01-13 11:51 | P.HP ---
Certification for Inpatient Patient admitted to: Inpatient With expected LOS: >2 Midnights Patient will require the following post-hospital care: None Practitioner: I am a practitioner with admitting privileges, knowledge of patient current condition, hospital course, and medical plan of care. Services: Services provided to patient in accordance with Admission requirements found in Title 42 Section 412.3 of the Code of Federal Regulations Patient History Date of Service: 01/13/24 Reason for admission: Acute pancreatitis History of Present Illness: 73-year-old male history of chronic indwelling Jeffers catheter for urinary retention, chronic diastolic congestive heart failure, atrial fibrillation on chronic anticoagulation therapy, [id number] diabetes, chronic hypotension on midodrine, COPD on home O2/chronic steroids, hyperlipidemia, depression with previous episode of pancreatitis presents to the emergency department with chief complaint of epigastric pain, nausea vomiting and diarrhea for 2 days. Patient was evaluated in the emergency department his labs were significant for a white blood cell count of 21.4 hemoglobin 10.1 hematocrit 32.8 AST 159 ALT 161 alk phos 150 lipase [address] abdomen pelvis with IV contrast was performed which showed mild to moderate pancreatitis, cholelithiasis with mild gallbladder distention, small cystic structures pancreatic tail probably pseudocyst. Also apparent mild thickening wall ascending colon and cecum may indicate a mild colitis or be secondary to incomplete distention. Subsequent abdominal ultrasound was performed which showed distended gallbladder with 6 mm stone, CBD normal, T. bili was also normal labs. Case was discussed with general surgery, GI who will consult, plan for stat MRCP. Patient will be admitted for acute pancreatitis, possible gallbladder pancreatitis. Allergies ATROVENT/ALBUTEROL Allergy (Uncoded 09/23/23 08:47) tachycardia limestone Allergy (Uncoded 09/23/23 08:47) Itching/Hives/Rash Home Medications: Amiodarone HCl [Cordarone*] 200 mg PO BID #60 tab 06/17/22 Bupropion *Xl* [Wellbutrin XL*] 150 mg PO DAILY 30 Days #30 tab 03/18/23 Alfuzosin HCl 5 mg PO BEDTIME 05/07/23 Potassium Chloride 20 meq PO DAILY 05/07/23 Atorvastatin Calcium [Lipitor] 40 mg PO BEDTIME 30 Days #30 tab 05/11/23 Hydrocodone Bit/Acetaminophen [[place] 7.5-325 Tablet] 1 tab PO BID 06/24/23 Pregabalin [Lyrica] 25 mg PO BID 06/24/23 Albuterol Sulfate [Albuterol Sulfate 0.083% Neb Soln] 2.5 mg IH Q6HP PRN 09/16/23 Albuterol Sulfate [Proair Respiclick] 2 puff IH PRN PRN 09/16/23 Apixaban [Eliquis] 2.5 mg PO BID 09/16/23 Benzonatate 200 mg PO DAILY 09/16/23 Fluticasone/Umeclidin/Vilanter [Trelegy Ellipta 100-62.5-25] 1 each IH DAILY 09/16/23 Furosemide 20 mg PO DAILY 09/16/23 Levocetirizine Dihydrochloride [Allergy Relief] 5 mg PO DAILY 09/16/23 Levofloxacin [Levaquin] 500 mg PO DAILY 09/16/23 Midodrine HCl [Proamatine*] 5 mg PO BID 09/16/23 Ondansetron [Zofran (Odt)*] 4 mg PO Q6H PRN 09/16/23 Prevagen 1 tab PO DAILY 09/16/23 Zinc Gluconate [Zinc] 50 mg PO DAILY 09/16/23 predniSONE [Deltasone*] 10 mg PO SEECOM 09/16/23 Enoxaparin Sodium [Lovenox 60 MG INJ] 60 mg SQ BID 4 Days #8 ml 09/23/23 Enoxaparin Sodium [Lovenox 60 MG INJ] 60 mg SQ DAILY 3 Days #3 ml 09/23/23 - Past Medical/Surgical History Diabetic: Yes -: Diabetes mellitus type [id number] -: Asthma -: Arthritis -: COPD on home O2 -: Hx PASTOR (Dr. Sousa/ Dr. Stubbs) -: HLD -: Depression -: Atrial fibrillation on chronic anticoagulation -: Hypotension on midodrine -: Diastolic CHF/ Moderate TR -: Urinary retention -: Cyst removal from right side of neck Psychosocial/ Personal History: Patient lives at home with his son - Family History Mother -: Heart disease, Diabetes Sister -: Lung disease, Diabetes, Cancer Father -: Lung disease, Cancer - Social History Alcohol use: No CD- Drugs: No Caffeine use: Yes Review of Systems 10-point ROS is otherwise unremarkable Gastrointestinal: Nausea, Vomiting, Abdominal Pain, Diarrhea Physical Examination - Physical Exam General: Alert, In no apparent distress, Oriented x3 HEENT: Atraumatic, PERRLA, Mucous membr. moist/pink Neck: Supple, 2+ carotid pulse no bruit, No LAD Respiratory: Clear to auscultation bilaterally, Normal air movement Cardiovascular: Regular rate/rhythm, Normal S1 S2 Gastrointestinal: Normal bowel sounds, Tenderness (moderate Epigastric tenderness, mild right upper quadrant tenderness) Musculoskeletal: No tenderness Integumentary: No rashes Neurological: Normal speech, Normal strength at 5/5 x4 extr, Normal affect - Studies Laboratory Data (last 24 hrs) 01/13/24 01/13/24 01/13/24 07:48 07:48 07:48 WBC 21.40 H Hgb 10.1 L Hct 32.8 L Plt Count 419 H PT 14.6 H INR 1.31 Sodium 133 L Potassium 3.1 L BUN 30 H Creatinine 1.47 H Glucose 85 Total Bilirubin 0.7 AST 159 H ALT 161 H Alkaline Phosphatase 150 H Lipase 488 H Microbiology Data (last 24 hrs): 01/13/24 08:00 Nasopharnyx Influenza Type A Antigen Screen - Final 01/13/24 08:00 Nasopharnyx Influenza Type B Antigen Screen - Final Assessment and Plan - Plan Assessment: Acute pancreatitis Cholelithiasis, distended gallbladder Pancreatic pseudocysts Possible complicated UTIhistory of chronic indwelling Jeffers catheter for urinary retention Chronic diastolic congestive heart failure Atrial fibrillation on chronic anticoagulation Chronic hypotension on midodrine COPD on home O2/chronic steroids Hyperlipidemia Depression Plan: Acute pancreatitis Cholelithiasis, distended gallbladder Pancreatic pseudocysts Possible complicated UTIhistory of chronic indwelling Jeffers catheter for urinary retention LFTs mildly elevated, T. bili normal, no signs of CBD dilatation on ultrasound Discussed case with general surgery, GI who are consulted and will follow Stat MRCP ordered n.p.o., IVF, as needed pain medications and antiemetics Marked Leukocytosis-continue empiric antibiotics with Rocephin/Flagyl Blood and urine cultures obtained Lactate less than 2 Monitor CBC daily Serial abdominal exams Chronic diastolic congestive heart failure Atrial fibrillation on chronic anticoagulation Last took Eliquis morning of 01/11 Start therapeutic Lovenox Continue home indications when tolerating p.o. Cardiology consult for perioperative eval echocardiogram ordered Chronic hypotension on midodrine continue when verified COPD on home O2/chronic steroids Continue when verified Hyperlipidemia Depression Continue home meds when tolerating p.o. DVT PPX: Therapeutic Lovenox Code status: Full Discharge Plan: Home Plan to discharge in: Greater than 2 days - Advance Directives Does patient have a Living Will: Yes Does patient have a Durable POA for Healthcare: Yes - Code Status/Comfort Care Code Status Assessed: Yes (Full code) Critical Care: No Time Spent Managing Pts Care (In Minutes): 75
[2024-01-13] MEDS: METRONIDAZOLE 500mg IVPB 500 MG/100 ML BAG IV SCH (12:00)
[2024-01-13] MEDS: D5 0.45 NS 1,000 ML IV SCH (15:00)
--- NOTE | 2024-01-13 17:52 | RAD REPORT ---
EXAMINATION: MR CHOLANGIOGRAM CLINICAL INDICATION: Male, 73 years old. [facility] MAIN N R/O choledoco/gallbladder pancreatitis PT IS NPO TECHNIQUE: Multiplanar, multisequence MR imaging of the abdomen without intravenous contrast, and wit h specific attention to the biliary system. Unless otherwise specified, incidental findings do not require dedicated imaging follow-up. 3D MIP reconstruction performed. COMPARISON: 01/13/2024 abdominal ultrasound and abdomen and pelvis FINDINGS: GALLBLADDER: Moderate distention. 6-7 mm dependently positioned calculus near the neck. Another fold at the neck. No wall thickening, or pericholecystic fluid. BILE DUCTS: No biliary ductal dilatation. Common bile duct measures 6 mm in caliber LIVER: Normal in size, contour, and signal without evidence of fatty infiltration or iron deposition. No focal lesion. PANCREAS: Normal signal. No mass, ductal dilation, or shree-pancreatic fluid. SPLEEN: Normal size. No focal lesion. ADRENALS: Normal; no mass. KIDNEYS: Normal size and contour. No hydronephrosis. LYMPH NODES: No lymphadenopathy. ADDITIONAL FINDINGS: None. IMPRESSION: No evidence of biliary ductal dilation or choledocholithiasis. Moderate gallbladder distention. Single dependent 6-7 mm calculus near the neck.
[2024-01-13] MEDS: ENOXAPARIN 80 MG/0.8 ML SQ SCH (20:21)
[2024-01-13] MEDS: MORPHINE 2 MG/ML SYR IV PRN (22:34)
[2024-01-14] MEDS ORDERED: GLUCAGON 1 MG/VIAL IV PRN (00:25)
[2024-01-14] MEDS ORDERED: D50W 25 GM/50 ML SYRINGE IV PRN (00:25)
[2024-01-14] MEDS: D10W 125 ML IV PRN (00:44)
[2024-01-14 06:25] LABS: Absolute Basophils 0.1 K/uL (0-0.5); Absolute Eosinophils 0.9 K/uL (0-0.5); Absolute Lymphocytes (CBC) 2.2 K/uL (0.7-4.9); Absolute Monocytes 1.5 K/uL (0.1-1.3); Basophils % 0.6 % (0-1.3); Eosinophils % 5.5 % (0-4.4); Hematocrit 27.5 % (39.6-49.0); Hemoglobin 8.8 g/dL (13.6-17.9); MCH 23.7 pg (27.0-35.0); MCHC 31.8 g/dL (32.0-36.0); MCV 74.4 fL (80-100); MPV 6.5 fL (7.6-11.3); Monocytes % 9.2 % (3.3-12.3); Neutrophils % 71.7 % (41.7-73.7); Platelets 339 thou/uL (152-406); Red Cell Distribution Width 18.5 % (12.1-15.2)
[2024-01-14] MEDS: ACETAMINOPHEN 325 MG TABLET PO PRN (06:28)
[2024-01-14 06:56] LABS: Albumin 1.8 g/dL (3.4-5.0); Albumin/Globulin Ratio 0.6 (1.1-1.8); Anion Gap 8.9 mEq/L (5.0-15.0); Bilirubin Total 0.6 mg/dL (0.2-1.0); Globulin 3.2 g/dL (2.3-3.5); Magnesium 2.1 mg/dL (1.6-2.4); Potassium 2.9 mEq/L (3.5-5.1)
[2024-01-14] MEDS: D5 0.45 NS 1,000 ML IV SCH (07:00)
[2024-01-14 08:52] LABS: Blood Morphology Comment NOTED (NOT SEEN); Burr Cells 1+; Platelet Estimate ADEQ
[2024-01-14 08:53] LABS: White Blood Cell Scan OK (OK)
[2024-01-14] MEDS: PREGABALIN 25 MG PO SCH (09:00)
[2024-01-14] MEDS: TAMSULOSIN 0.4 MG SR CAP PO SCH (09:00)
[2024-01-14] MEDS: HYDROCODONE/APAP 7.5/325 MG TAB PO SCH (09:00)
[2024-01-14] MEDS: predniSONE 10 MG TAB PO SCH (09:00)
[2024-01-14] MEDS: FUROSEMIDE 20 MG TABLET PO SCH (09:00)
[2024-01-14] MEDS: BUPROPION HCL XL 150 MG TAB PO SCH (09:00)
[2024-01-14] MEDS: ZINC SULFATE 220 MG CAP PO SCH (09:00)
[2024-01-14] MEDS: AMIODARONE HCL 200 MG TAB PO SCH (09:00)
[2024-01-14] MEDS ORDERED: ZINC GLUCONATE 50 MG TAB PO SCH (09:00)
[2024-01-14] MEDS: MIDODRINE HCL 5 MG TABLET PO SCH (09:00)
[2024-01-14] MEDS: CEFTRIAXONE 1,000 MG in NA CHLORIDE 0.9% 50 ML IVPB SCH (09:18)
[2024-01-14] MEDS: KCL 20 MEQ/100 mL IVPB 20 MEQ/100 ML BAG IV SCH (09:19)
--- NOTE | 2024-01-14 09:39 | P.PN ---
Date of Service: 01/14/24 Subjective: Improving Less pain Hungry No acute events overnight ROS: 10 point ROS as noted above, otherwise negative Physical exam GEN: Alert, oriented, NAD HEENT: Normal conjunctiva, sclera anicteric CV: Regular rate and rhythm, no edema Pulm: Nonlabored respirations on room air ABD: Soft, mild tenderness epigastric, nondistended MSK: No joint tenderness : Jeffers in place-chronic indwelling Integumentary: No rashes Neuro: Normal speech, normal affect Vitals reviewed Assessment: Acute pancreatitis Cholelithiasis, distended gallbladder Pancreatic pseudocysts Possible complicated UTIhistory of chronic indwelling Jeffers catheter for urinary retention Chronic diastolic congestive heart failure Atrial fibrillation on chronic anticoagulation Chronic hypotension on midodrine COPD on home O2/chronic steroids Hyperlipidemia Depression Plan: Acute pancreatitis Cholelithiasis, distended gallbladder Pancreatic pseudocysts Possible complicated UTIhistory of chronic indwelling Jeffers catheter for urinary retention LFTs mildly elevated, T. bili normal, no signs of CBD dilatation on ultrasound Discussed case with general surgery, GI who are consulted and will follow MRCP negative Seen by general surgery, start clear liquids [id number] empiric antibiotics with Rocephin/Flagyl Blood and urine cultures obtained Lactate less than 2 Monitor CBC daily Serial abdominal exams Chronic diastolic congestive heart failure Atrial fibrillation on chronic anticoagulation Last took Eliquis morning of 01/11 Start therapeutic Lovenox Continue home indications when tolerating p.o. Cardiology consult for perioperative eval echocardiogram ordered Chronic hypotension on midodrine Home meds continued COPD on home O2/chronic steroids Home meds continued Hyperlipidemia Depression Home meds continued DVT PPX: Therapeutic Lovenox Code status: Full Discharge Plan: Home Plan to discharge in: Greater than 2 days Time Spent Managing Pts Care (In Minutes): 35
[2024-01-14 11:23] VITALS: BMI 22.1
--- NOTE | 2024-01-14 18:42 | CON ---
History Of Present Illness: This is the case of a 73-year-old patient who came in, admitted to the [facility] with multiple medical problems, which is really nausea, vomiting, and diarrhea for the last 2 days. During the workup, the patient was found to have a pancreatitis and a surgical consult was ob tained. The patient stated the pain in the epigastric area in the left upper quadrant has been about 2 days in duration. He has prior episode of pancreatitis in the past. Allergies: ATROVENT AND ALBUTEROL. Medications: Include Lipitor, Eliquis, Trelegy, Levaquin, Zofran, Deltasone, and Lovenox. Past Medical History: Include arthritis, asthma, diabetes type 2; COPD, uses chronic oxygen; history of renal disease; depression; atrial fibrillation, on anticoagulation; congestive heart failure; singh creatitis; urinary retention. Family History: Include diabetes. Social History: He does not smoke. He does not drink alcohol. Review of Systems: Initially with nausea, vomiting, abdominal pain, and diarrhea. There is no dysuria, hematuria, hemat ochezia, or melena. There is no jaundice. There is no shortness of breath. No chest pain. Physical Examination: Vital Signs: Reviewed. General: The patient is awake, alert, oriented x3. HEENT: Pupils are equal and reactive. Anicteric. Neck: Supple. Chest: Clear to auscultation. Heart: S1, S2. Abdomen: Soft and depressible. No Claire sign. Mild epigastric and left lower quadrant tenderness. No peritonitis. Rectal: Deferred. Extremities: Good capillary refill. Laboratory Data: Blood work shows a WBC count of 16, coming down from 21, hemoglobin of 8.8 with heriberto telets of 339, neutrophils 71.7. INR is 1.31. Sodium is 133, potassium is 3.1. Total bilirubin of 0.7, alkaline phosphate 150, lipase 488, came down to 116. Total bilirubin is still 0.6 and alkaline phosphate came back to normal. Ultrasound of the abdomen, CT scan, and MRCP done. No evidence of b iliary ductal dilatation or choledocholithiasis. Moderate distended gallbladder with a stone near th e neck. No wall thickening or pericholecystic fluid. There are no masses on the pancreatic area, al though that is on the MRCP. On the CAT scan, it says several cystic structures of pancreatic tail; p eripancreatic stranding, [id number]; and a cystic structure in the pancreas about 1.1 cm. Assessment: This is a 73 years old patient, comes with pancreatitis, increase lipase, a CAT scan darrel wing a peripancreatic stranding with cystic structures in the pancreatic tail, large 1.1 cm. Shows c holelithiasis with gallbladder distention. We do not see any choledocholithiasis on the MRCP. The p atient feels better. He is hungry. He wants to eat. So from the surgical standpoint, we explained to him the options of laparoscopic cholecystectomy, although at this moment, we cannot have a clear e xplanation of his pancreatitis because we do not see any stones in the common bile duct that are bloc nadia the pancreatic duct. At this moment, since he wants to treat the pancreatitis, we are going to just treat this conservatively with hydration. He has been treated with antibiotics. We are going t o start clear liquid diet. If he does not tolerate that, then we might have to address the gallbladd er issue. If he tolerates diet, then eventually he may need elective cholecystectomy, although we st ill have to once again try to see if the findings in the pancreatic tail where the cystic structures are, are still there in a comparison CT scan later. The patient has no peritonitis at this moment. SOFÍA/RIZWAN Voice ID: [id number] Report ID: [id number]
[2024-01-14] MEDS: ATORVASTATIN 40 MG TAB PO SCH (20:52)
[2024-01-14] MEDS: LORATADINE 10 MG TAB PO SCH (20:53)
--- NOTE | 2024-01-14 21:12 | CON ---
Date of Consultation: 01/14/2024 Reason For Consultation: Acute pancreatitis with midepigastric left upper quadrant pain. History Of Present Illness: The patient is a 73-year-old white male with history of diabetes, hypertension, congestive heart failure, atrial fibrillation, asthma, COPD. The patient was sent to hospital with acute midepigastric upper quadrant pain, intensity 7/10, associated with some nausea and vomiting and also some diarrhea. He says the pains have been ongoing symptoms for approximately 1 to 2 days prior to admission. CT scan revealed mild to moderate pancreatitis with a gallstone at the neck of the gallbladder. Subsequent ultrasound of abdomen revealed gallstone in the neck of the gallbladder with sludge in the gallbladder itself, but no stone in the common bile duct. Subsequent MRCP revealed no stones in the bile duct, however, a stone in the gallbladder sludge and also the pancreatitis with pseudocyst in the tail of the pancreas. The patient states he had a prior episode of this pancreatitis he believes a few months ago and does not know why. Denies alcohol or other new medicines gallstones. Past Medical History: Significant for diabetes, hypertension, congestive heart failure, atrial fibrillation, asthma, COPD. Medications: At home include Cordarone, Wellbutrin, potassium, Lipitor, [place], Lyrica, albuterol inhaler, ProAir, Eliquis, , Trelegy Ellipta, Lasix, Sherry, Levaquin, midodrine, Zofran, Privigen, zinc, prednisone, and Lovenox. Allergies: TO ALBUTEROL AND LIMESTONE. Social History: He is , has 5 kids. No tobacco. Quit 14 months ago. No alcohol. Family History: Father of lung cancer, some tobacco use. Mother of congestive heart failure with fluid around her heart. Review of Systems: The patient has midepigastric quadrant pain, nausea, vomiting, diarrhea. Diarrhea has resolved. The patient denies any melena, hematochezia, hematemesis, coffee-ground emesis, hematuria, dysuria, polydipsia, muscle aches, joint aches, backaches. He does have dysuria and UA has been positive. Mild shortness of breath. No depression or anxiety. Physical Examination: Vital Signs: The patient is 5 foot 8 inches, 146 pounds, BMI of 22.2 kg/sq m. Temperature 98.4 degrees Fahrenheit, pulse 54, respirations 14, blood pressure 111/56, O2 saturation 92% to 96%. General: He is an elderly male, lying in bed, in no acute distress, coughing frequently. HEENT: Normocephalic, atraumatic. Anicteric. Pupils equal, round, and reactive to light. Extraocular movements are intact. Oropharynx is clear. Neck: Supple. No masses. Respirations: Decreased breath sounds. Occasional rales. Cardiac: Irregularly irregular rhythm. Abdomen: Positive bowel sounds. No hepatosplenomegaly. Soft, nontender. He did have tenderness in the midepigastric and left upper quadrant with actually some pain in left upper quadrant greater than midepigastric pain, but no peritoneal or Claire sign. Mild guarding. Extremities: No clubbing or cyanosis. Mild edema. Neuro: Alert and oriented x3. Grossly nonfocal. 5/5 motor. Sensation intact to light touch. Laboratory Data: The patient has white count of 16.7, down from 21.4 yesterday, hemoglobin of 8.8, down from 10.1 yesterday, hematocrit 27.5, MCV of 74, platelet count of 339, polys of 70%, lymphocytes 30%, monocytes 9%, eosinophils 5%. His PT of 14.6, INR of 1.13. The patient's sodium 135, potassium 2.9, chloride 104, bicarb 25, BUN of 20, creatinine of 1.3, glucose 70, calcium 8.0, magnesium 2.1, total bilirubin 0.6, AST of 145, ALT 141, alkaline phosphatase 150, total protein 5.0, albumin 1.8. Lipase is 116, down from 488 yesterday. UA reveals 1+ urobilinogen, 500 leukocyte esterase, 5 to 10 rbc, greater than 50 white blood cells, no squamous epithelial cells, extremely turbid, trace blood, 2+ mucus, 1+ total protein. Serology negative. As stated above, CT scan reveals gallstone in neck of gallbladder with mild to moderate pancreatitis. Ultrasounds revealed gallstone in the neck of gallbladder and sludge in the gallbladder itself. MRCP was negative for stone in common bile duct. There was stone sludge in the gallbladder itself. There was also small pseudocyst in the pancreatic tail, where the patient has had most of his pain with 1 prior episode of probable pancreatitis few months ago. Impression: 1. Acute pancreatitis, probably recurrent with small pseudocysts noted in the tail of the pancreas on MRCP, probably due to gallstone pancreatitis, which is recurrent x2. The patient reports midepigastric left upper quadrant pain, max of 7/10 last time, 8/10 in the prior event [address] of the pelvis reveals pancreatitis and gallstones in gallbladder neck. Ultrasound shows gallstones with a 6 mm gallstone sludge in the gallbladder. MRCP reveals small pancreatic pseudocysts in the tail, but no stone in common bile duct. Lipase has decreased from 116 to 48. 2. UTI. 3. History of diabetes, hypertension, congestive heart failure, atrial fibrillation, asthma, COPD. Recommendation: 1. Continue IV fluids, IV antibiotics. 2. Keep the patient n.p.o. 3. Soon Clear liquids probably tomorrow. 4. Laparoscopic cholecystectomy as per Surgery. 5. Monitor labs. DANN/RIZWAN Voice ID: [id number] Report ID: [id number] MTDD
[2024-01-14] MEDS: ONDANSETRON 4 MG/2 ML VIAL IV PRN (21:29)
--- NOTE | 2024-01-14 22:57 | CON ---
Date of Consultation: 01/14/2024 Reason For Consultation: Preop assessment for possible cholecystectomy. History Of Present Illness: This is a 73-year-old male with a past medical history of diabetes, COPD , dyslipidemia, hypertension, atrial fibrillation, advanced COPD, on oxygen at home presented to the emergency room with abdominal discomfort throughout the abdomen, mainly in the epigastric area and th e right upper quadrant. He has had previous history of pancreatitis, and apparently, he is having th e same symptoms now. Denies having any chest pain. No nausea, vomiting, diarrhea. I was asked to s ee the patient for preop risk assessment. He denies having any chest pain and he was seen in my offi ce and had cardiac evaluation this year and he did not have any evidence of coronary artery disease. He denies having any active chest pain. Past Medical History: As outlined above in the HPI. Medications: Refer reconciliation sheet for detailed list. Allergies: ATROVENT AND ALBUTEROL. Family History: No premature coronary artery disease or cancer. Social History: Does not smoke or drink. Does not use any drugs. Review of Systems: All systems reviewed and they were negative except mentioned in the HPI. Physical Examination: Vital Signs: Reviewed. Head and Neck: Pupils are equal, reactive to light. Intact eye movements. Neck: No JVD, no cervical lymphadenopathy. Neck supple. Thyroid is not enlarged. Lungs: Decreased breathing sounds bilaterally. No accessory muscle use or muscle retraction. Heart: Regular rate and rhythm. No extra sounds. Abdomen: Soft, nontender. Bowel sounds positive. No organomegaly. No masses or hernia. No rigidi ty or rebound. Extremities: No edema, clubbing, cyanosis. Intact pulses. Skin: No rash. No nodules. Neurologic: Alert, awake, oriented x3. No acute focal deficits appreciated. Investigations: The troponin is negative. BUN is 20, creatinine 1.29, and hemoglobin is 8.8. Assessment/recommendation: 1.Cardiac preoperative risk assessment for possible cholecystectomy. The patient does not have any chest pain and he had a cardiac workup at office recently including stress test that was negative. H e is at low cardiac risk for cholecystectomy to proceed without any further cardiac workup at this po int. 2.Atrial fibrillation seems well controlled. Continue current management. 3.Dyslipidemia. Continue statin. Cardiology will sign off on the case and to follow up on outpatie nt basis upon discharge. SR/MODL Voice ID: [id number] Report ID: [id number]
[2024-01-15 05:15] LABS: Absolute Basophils 0.1 K/uL (0-0.5); Absolute Eosinophils 1.1 K/uL (0-0.5); Absolute Lymphocytes (CBC) 2.4 K/uL (0.7-4.9); Absolute Monocytes 1.3 K/uL (0.1-1.3); Absolute Neutrophil 11.5 K/uL (1.8-8.0); Basophils % 0.8 % (0-1.3); Eosinophils % 6.4 % (0-4.4); Hematocrit 28.6 % (39.6-49.0); Hemoglobin 9.1 g/dL (13.6-17.9); Lymphocytes % 14.4 % (15.3-44.8); MCH 23.9 pg (27.0-35.0); MCHC 31.7 g/dL (32.0-36.0); MCV 75.4 fL (80-100); Monocytes % 7.9 % (3.3-12.3); Neutrophils % 70.5 % (41.7-73.7); Platelets 321 thou/uL (152-406)
[2024-01-15 05:40] LABS: Albumin 1.8 g/dL (3.4-5.0); Albumin/Globulin Ratio 0.6 (1.1-1.8); Anion Gap 9.3 mEq/L (5.0-15.0); Bilirubin Total 0.5 mg/dL (0.2-1.0); Globulin 3.1 g/dL (2.3-3.5); Magnesium 1.8 mg/dL (1.6-2.4); Potassium 3.3 mEq/L (3.5-5.1); Protein, Total 4.9 g/dL (6.4-8.2)
[2024-01-15] MEDS: POTASSIUM CL SA 10 MEQ TAB PO ONE (09:00)
[2024-01-15] MEDS: CEFEPIME 1 GM in NA CHLORIDE 0.9% 100 ML IV SCH (09:07)
[2024-01-15] MEDS: MAGNESIUM SULFATE 1 gm IVPB 1 GM/100 ML BAG IV ONE (09:07)
--- NOTE | 2024-01-15 14:04 | P.PN ---
Date of Service: 01/15/24 Subjective: Improving Less pain less hungry today, having some N/V this AM ROS: 10 point ROS as noted above, otherwise negative Physical exam GEN: Alert, oriented, NAD HEENT: Normal conjunctiva, sclera anicteric CV: Regular rate and rhythm, no edema Pulm: Nonlabored respirations on room air ABD: Soft, mild tenderness epigastric, nondistended MSK: No joint tenderness : Jeffers in place-chronic indwelling Integumentary: No rashes Neuro: Normal speech, normal affect Vitals reviewed Assessment: Acute pancreatitis Cholelithiasis, distended gallbladder Pancreatic pseudocysts Possible complicated UTIhistory of chronic indwelling Jeffers catheter for urinary retention Chronic diastolic congestive heart failure Atrial fibrillation on chronic anticoagulation Chronic hypotension on midodrine COPD on home O2/chronic steroids Hyperlipidemia Depression Plan: Acute pancreatitis Cholelithiasis, distended gallbladder Pancreatic pseudocysts Possible complicated UTIhistory of chronic indwelling Jeffers catheter for urinary retention LFTs mildly elevated, T. bili normal, no signs of CBD dilatation on ultrasound Discussed case with general surgery, GI who are consulted and will follow MRCP negative Seen by general surgery, start clear liquids-likely will need outpatient cholecystectomy when pancreatitis resolves Ojzaeorxniii-srjdwshrn-hwvanbrp empiric antibiotics with cefepime/Flagyl Blood cultures with no growth in 24 hours Urine cultures grew Citrobacter and Pseudomonas both sensitive to cefepime Lactate less than 2 Monitor CBC daily Serial abdominal exams Chronic diastolic congestive heart failure Atrial fibrillation on chronic anticoagulation Last took Eliquis morning of 01/11 Start therapeutic Lovenox Cardiology consult for perioperative eval echocardiogram ordered Chronic hypotension on midodrine Home meds continued COPD on home O2/chronic steroids Home meds continued Hyperlipidemia Depression Home meds continued DVT PPX: Therapeutic Lovenox Code status: Full Discharge Plan: Home Plan to discharge in: Greater than 2 days Time Spent Managing Pts Care (In Minutes): 35
--- NOTE | 2024-01-16 00:24 | PN ---
Diagnosis: Cholecystitis, pancreatitis. Indications: This is a case of a 73-year-old patient who comes to us with abdominal pain, found to h ave a pancreatitis. MRCP did not show any stone in the common bile duct. The patient feels better. He almost has no pain. He is tolerating just clears. We have not advanced yet. No shortness of br eath. No chest pain. No fever. He had some nausea last night. Objective: Chest: Clear. Abdomen: Soft and depressible. No guarding. No rebound. Assessment: Acute pancreatitis, improving. Continue antibiotic. Continue IV hydration. Advance di et slowly. Elective cholecystectomy if possibly if pancreatitis gets better. SOFÍA/RIZWAN Voice ID: [id number] Report ID: [id number]
[2024-01-16] MEDS: DIPHENHYDRAMINE 25 MG TAB/CAP PO PRN (03:59)
[2024-01-16 05:13] LABS: Absolute Basophils 0.1 K/uL (0-0.5); Absolute Eosinophils 1.3 K/uL (0-0.5); Absolute Lymphocytes (CBC) 2.7 K/uL (0.7-4.9); Absolute Monocytes 1.1 K/uL (0.1-1.3); Absolute Neutrophil 7.9 K/uL (1.8-8.0); Basophils % 0.9 % (0-1.3); Eosinophils % 10.2 % (0-4.4); Hematocrit 29.7 % (39.6-49.0); Hemoglobin 9.3 g/dL (13.6-17.9); Lymphocytes % 20.6 % (15.3-44.8); MCH 23.5 pg (27.0-35.0); MCHC 31.4 g/dL (32.0-36.0); MPV 6.9 fL (7.6-11.3); Monocytes % 8.5 % (3.3-12.3); Neutrophils % 59.8 % (41.7-73.7); Nucleated Red Blood Cells % 0.1 % (0-0); Platelets 375 thou/uL (152-406); RBC Red Blood Cell Count 3.96 M/uL (4.33-5.43); Red Cell Distribution Width 18.7 % (12.1-15.2)
[2024-01-16 05:39] LABS: Albumin 1.9 g/dL (3.4-5.0); Albumin/Globulin Ratio 0.6 (1.1-1.8); Anion Gap 8.9 mEq/L (5.0-15.0); Bilirubin Total 0.5 mg/dL (0.2-1.0); Globulin 3.4 g/dL (2.3-3.5); Magnesium 2.1 mg/dL (1.6-2.4); Potassium 2.9 mEq/L (3.5-5.1); Protein, Total 5.3 g/dL (6.4-8.2)
[2024-01-16] MEDS: KCL 20 MEQ/100 mL IVPB 20 MEQ/100 ML BAG IV SCH (07:00)
[2024-01-16] MEDS: POTASSIUM 25 MEQ EFFERV TAB PO ONE (07:14)
[2024-01-16] MEDS: ENSURE ENLIVE 237 ML CAN PO SCH (08:25)
--- NOTE | 2024-01-16 10:02 | P.PN ---
Date of Service: 01/16/24 Subjective: Denies abd pain Poor appetite No acute events overnight Lost IV access-refused sticks this morning ROS: 10 point ROS as noted above, otherwise negative Physical exam GEN: Alert, oriented, NAD HEENT: Normal conjunctiva, sclera anicteric CV: Regular rate and rhythm, no edema Pulm: Nonlabored respirations on room air ABD: Soft, mild tenderness epigastric, nondistended MSK: No joint tenderness : Jeffers in place-chronic indwelling Integumentary: No rashes Neuro: Normal speech, normal affect Vitals reviewed Assessment: Acute pancreatitis Cholelithiasis, distended gallbladder Pancreatic pseudocysts Possible complicated UTIhistory of chronic indwelling Jeffers catheter for urinary retention Chronic diastolic congestive heart failure Atrial fibrillation on chronic anticoagulation Chronic hypotension on midodrine COPD on home O2/chronic steroids Hyperlipidemia Depression Plan: Acute pancreatitis Cholelithiasis, distended gallbladder Pancreatic pseudocysts Possible complicated UTIhistory of chronic indwelling Jeffers catheter for urinary retention Poor appetite LFTs mildly elevated, T. bili normal, no signs of CBD dilatation on ultrasound Discussed case with general surgery, GI who are consulted and will follow MRCP negative Seen by general surgery, start diet ADAT-likely will need outpatient cholecystectomy when pancreatitis resolves Dtdczqhwkcfi-wtdsspmmp-nmpumozi empiric antibiotics with cefepime/Flagyl Blood cultures with no growth in 24 hours Urine cultures grew Citrobacter and Pseudomonas both sensitive to cefepime Lactate less than 2 Monitor CBC daily Serial abdominal exams Suffers from from dysgeusia after COVID Has poor appetite outpatient as well Will try Glucerna, advancing diet to something more palatable Patient was reports chronic cough/gagging at home Chronic diastolic congestive heart failure Atrial fibrillation on chronic anticoagulation Last took Eliquis morning of 01/11 Start therapeutic Lovenox Cardiology consult for perioperative eval echocardiogram ordered Chronic hypotension on midodrine Home meds continued COPD on home O2/chronic steroids Home meds continued Hyperlipidemia Depression Home meds continued DVT PPX: Therapeutic Lovenox-switch to eliquis when clear patient will not need surgical intervention Code status: Full Discharge Plan: Home Plan to discharge in: Greater than 2 days Time Spent Managing Pts Care (In Minutes): 35
[2024-01-16] MEDS: ALBUTEROL 2.5 MG/3 ML NEB SOL IH PRN (15:50)
[2024-01-17 05:29] LABS: Absolute Basophils 0.1 K/uL (0-0.5); Absolute Eosinophils 1.1 K/uL (0-0.5); Absolute Lymphocytes (CBC) 2.5 K/uL (0.7-4.9); Absolute Neutrophil 7.6 K/uL (1.8-8.0); Basophils % 0.5 % (0-1.3); Eosinophils % 9.2 % (0-4.4); Hematocrit 28.9 % (39.6-49.0); Hemoglobin 9.1 g/dL (13.6-17.9); Lymphocytes % 20.3 % (15.3-44.8); MCH 23.6 pg (27.0-35.0); MCHC 31.6 g/dL (32.0-36.0); MCV 74.7 fL (80-100); MPV 6.5 fL (7.6-11.3); Monocytes % 8.2 % (3.3-12.3); Neutrophils % 61.8 % (41.7-73.7); Nucleated Red Blood Cells % 0.1 % (0-0); Platelets 395 thou/uL (152-406); RBC Red Blood Cell Count 3.88 M/uL (4.33-5.43); Red Cell Distribution Width 18.7 % (12.1-15.2)
[2024-01-17 06:08] LABS: Albumin 1.9 g/dL (3.4-5.0); Albumin/Globulin Ratio 0.6 (1.1-1.8); Anion Gap 7.9 mEq/L (5.0-15.0); Bilirubin Total 0.4 mg/dL (0.2-1.0); Magnesium 1.8 mg/dL (1.6-2.4); Potassium 2.9 mEq/L (3.5-5.1); Protein, Total 4.9 g/dL (6.4-8.2)
[2024-01-17] MEDS: KCL 20 MEQ/100 mL IVPB 20 MEQ/100 ML BAG IV SCH ×2 (08:30→10:22)
[2024-01-17] MEDS: MAGNESIUM SULFATE 1 gm IVPB 1 GM/100 ML BAG IV ONE (08:33)
[2024-01-17] MEDS: CEFEPIME 2 GM in NA CHLORIDE 0.9% 100 ML IV SCH (08:35)
--- NOTE | 2024-01-17 10:29 | P.PN ---
Date of Service: 01/17/24 Subjective: Denies abd pain Doing better on diet, drinking ensures No acute events overnight Midline in place now ROS: 10 point ROS as noted above, otherwise negative Physical exam GEN: Alert, oriented, NAD HEENT: Normal conjunctiva, sclera anicteric CV: Regular rate and rhythm, no edema Pulm: Nonlabored respirations on room air ABD: Soft, mild tenderness epigastric, nondistended MSK: No joint tenderness : Jeffers in place-chronic indwelling Integumentary: No rashes Neuro: Normal speech, normal affect Vitals reviewed Assessment: Acute pancreatitis Cholelithiasis, distended gallbladder Pancreatic pseudocysts Possible complicated UTIhistory of chronic indwelling Jeffers catheter for urinary retention Chronic diastolic congestive heart failure Atrial fibrillation on chronic anticoagulation Chronic hypotension on midodrine COPD on home O2/chronic steroids Hyperlipidemia Depression Plan: Acute pancreatitis Cholelithiasis, distended gallbladder Pancreatic pseudocysts Possible complicated UTIhistory of chronic indwelling Jeffers catheter for urinary retention Poor appetite LFTs mildly elevated, T. bili normal, no signs of CBD dilatation on ultrasound Discussed case with general surgery, GI who are consulted and will follow MRCP negative Seen by general surgery, start diet ADAT-likely will need outpatient cholecystectomy when pancreatitis resolves Cwgwvbuytztd-vfezqfmdg-apezvboe empiric antibiotics with cefepime/Flagyl Blood cultures with no growth in 24 hours Urine cultures grew Citrobacter and Pseudomonas both sensitive to cefepime Lactate less than 2 Monitor CBC daily Serial abdominal exams Suffers from from dysgeusia after COVID Has poor appetite outpatient as well Will try Ensure, advancing diet to something more palatable-did better 01/15 with diet Patient was reports chronic cough/gagging at home Chronic diastolic congestive heart failure Atrial fibrillation on chronic anticoagulation Last took Eliquis morning of 01/11 Start therapeutic Lovenox Cardiology consult for perioperative eval echocardiogram ordered Switch from Lovenox to Eliquis when it is clear patient will not need surgery/cholecystectomy Chronic hypotension on midodrine Home meds continued COPD on home O2/chronic steroids Home meds continued Hyperlipidemia Depression Home meds continued DVT PPX: Therapeutic Lovenox-switch to eliquis when clear patient will not need surgical intervention Code status: Full Discharge Plan: Home Plan to discharge in: Greater than 2 days Time Spent Managing Pts Care (In Minutes): 35
--- NOTE | 2024-01-17 10:31 | ECHO ---
HEIGHT: 5 ft 8 in WEIGHT: 146 lb 0 oz DATE OF STUDY: 01/13/[address]: Morgan Rm NP 2-DIMENSIONAL: YES M.MODE: YES DOPPLER: YES COLOR FLOW: YES TDS: NO PORTABLE: YES DEFINITY: NO BUBBLE STUDY: NO DIAGNOSIS: PREOP EVALUATION CARDIAC HISTORY: CATHERIZATION: NO SURGERY: NO PROSTHETIC VALVE: NO PACEMAKER: NO MEASUREMENTS (cm) DIASTOLIC (NORMALS) SYSTOLIC (NORMALS) IVSd 0.9 (0.6-1.2) LA Diam 2.5 (1.9-4.0) LVEF 72% LVIDd 3.9 (3.5-5.7) LVIDs 2.3 (2.0-3.5) %FS 41% LVPWd 0.9 (0.6-1.2) Ao Diam 2.7 (2.0-3.7) 2 DIMENSIONAL ASSESSMENT: RIGHT ATRIUM: NORMAL LEFT ATRIUM: NORMAL RIGHT VENTRICLE: MILDLY DILATED LEFT VENTRICLE: NORMAL TRICUSPID VALVE: MILD TRICUSPID REGURGITATION MITRAL VALVE: MILD MITRAL REGURGITATION PULMONIC VALVE: NORMAL AORTIC VALVE: NORMAL PERICARDIAL EFFUSION: NONE AORTIC ROOT: NORMAL LEFT VENTRICULAR WALL MOTION: NORMAL. DOPPLER/COLOR FLOW: SEE BELOW. COMMENTS: 1. NORMAL LEFT VENTRICULAR EJECTION FRACTION 60-65% WITH NORMAL WALL MOTION. 2. GRADE I DIASTOLIC DYSFUNCTION. 3. MILD MITRAL REGURGITATION. 4. DILATED RIGHT VENTRICLE WITH NORMAL FUNCTION. 5. SEVERE PULMONARY HYPERTENSION WITH RIGHT VENTRICULAR SYSTOLIC PRESSURE GREATER THAN 60mmHg. 6. MILD TRICUSPID REGURGITATION. TECHNOLOGIST: CARLITO FLORIAN
[2024-01-17] MEDS ORDERED: DIPHENHYDRAMINE 50 MG/ML VIAL IV PRN (15:46)
[2024-01-17 18:25] LABS: Anion Gap 14.1 mEq/L (5.0-15.0); Potassium 4.1 mEq/L (3.5-5.1)
[2024-01-17] MEDS: APIXABAN 5 MG TABLET PO SCH (20:03)
[2024-01-17] MEDS: ENSURE HIGH PROTEIN 237 ML CAN PO SCH (20:07)
[2024-01-17] MEDS: ALBUTEROL 2.5 MG/3 ML NEB SOL IH PRN (20:22)
[2024-01-18 04:57] LABS: Absolute Basophils 0.1 K/uL (0-0.5); Absolute Eosinophils 0.3 K/uL (0-0.5); Absolute Lymphocytes (CBC) 2.8 K/uL (0.7-4.9); Absolute Monocytes 1.1 K/uL (0.1-1.3); Absolute Neutrophil 7.5 K/uL (1.8-8.0); Basophils % 0.6 % (0-1.3); Eosinophils % 2.3 % (0-4.4); Hematocrit 28.5 % (39.6-49.0); Hemoglobin 8.8 g/dL (13.6-17.9); Lymphocytes % 24.1 % (15.3-44.8); MCH 23.2 pg (27.0-35.0); MCHC 30.9 g/dL (32.0-36.0); MCV 75.2 fL (80-100); MPV 6.9 fL (7.6-11.3); Monocytes % 9.3 % (3.3-12.3); Neutrophils % 63.7 % (41.7-73.7); Platelets 365 thou/uL (152-406); RBC Red Blood Cell Count 3.78 M/uL (4.33-5.43); Red Cell Distribution Width 18.7 % (12.1-15.2)
[2024-01-18 06:04] LABS: Albumin/Globulin Ratio 0.6 (1.1-1.8); Anion Gap 7.4 mEq/L (5.0-15.0); Bilirubin Total 0.3 mg/dL (0.2-1.0); Globulin 3.2 g/dL (2.3-3.5); Magnesium 1.9 mg/dL (1.6-2.4); Potassium 3.4 mEq/L (3.5-5.1); Protein, Total 5.2 g/dL (6.4-8.2)
[2024-01-18] MEDS: POTASSIUM CL SA 10 MEQ TAB PO ONE (10:46)
--- NOTE | 2024-01-18 10:47 | P.PN ---
Subjective Date of Service: 01/17/24 Chief Complaint: Acute pancreatitis Subjective: Tolerating diet (full liquid), Ambulating, Improving Review of Systems Respiratory: Unremarkable Cardiovascular: Unremarkable Gastrointestinal: Abdominal Pain (better), Distention Genitourinary: Unremarkable Physical Examination - Vital Signs Temperature: 97.1 F Blood Pressure: 121/70 Pulse: 57 Respirations: 20 Pulse Ox (%): 94 - Physical Exam General: Alert, In no apparent distress, Oriented x3, Cooperative HEENT: Normocephalic, PERRLA, Sclerae nonicteric Neck: Supple Respiratory: Normal air movement Gastrointestinal: Soft and benign, No rebound, No guarding, Tenderness (minimal epigastric 1/10 per patient) Musculoskeletal: No erythema, No tenderness, No warmth Integumentary: No rashes, No breakdown - Studies Microbiology Data (last 24 hrs): 01/13/24 09:42 Blood - Blood Aerobic Blood Culture - Final No growth in 5 days. 01/13/24 09:42 Blood - Blood Anaerobic Blood Culture - Final 01/13/24 09:30 Blood - Blood Aerobic Blood Culture - Final No growth in 5 days. 01/13/24 09:30 Blood - Blood Anaerobic Blood Culture - Final No growth in 5 days. Assessment And Plan - Plan advance diet Elective cholecystectomy cont po abx
--- NOTE | 2024-01-18 20:21 | P.PN ---
Date of Service: 01/18/24 Subjective: Feeling well this AM, no abdominal pain Advancing diet Lipase slowly downtrending ROS: 10 point ROS as noted above, otherwise negative Physical exam GEN: AAO x3, NAD HEENT: Normal conjunctiva, sclera anicteric CV: RRR, no edema Pulm: Nonlabored respirations, symmetrical chest wall movement, on room air ABD: Soft on palpation, NT/ND MSK: No joint tenderness : Jeffers in place-chronic indwelling Integumentary: No rashes Neuro: Normal speech, normal affect Vitals reviewed Assessment: Acute pancreatitis Cholelithiasis, distended gallbladder Pancreatic pseudocysts Possible complicated UTIhistory of chronic indwelling Jeffers catheter for urinary retention Chronic diastolic congestive heart failure Atrial fibrillation on chronic anticoagulation Pulmonary Hypertension Chronic hypotension on midodrine COPD on home O2/chronic steroids Hyperlipidemia Depression Plan: Acute pancreatitis Cholelithiasis, distended gallbladder Pancreatic pseudocysts Possible complicated UTIhistory of chronic indwelling Jeffers catheter for urinary retention Poor appetite LFTs mildly elevated, T. bili normal, no signs of CBD dilatation on ultrasound Discussed case with general surgery, GI who are consulted and will follow MRCP negative Seen by general surgery, start diet ADAT-likely will need outpatient cholecystectomy when pancreatitis resolves Wlpkodtucojk-yuznxnntq-arohxvoo empiric antibiotics with cefepime/Flagyl Blood cultures with no growth in 24 hours Urine cultures grew Citrobacter and Pseudomonas both sensitive to cefepime Lactate less than 2 Monitor CBC daily Serial abdominal exams Suffers from from dysgeusia after COVID Has poor appetite outpatient as well advancing diet to something more palatable-did better 01/15 with diet Patient was reports chronic cough/gagging at home Lipase 304, slow downtrend Chronic diastolic congestive heart failure Atrial fibrillation on chronic anticoagulation Pulmonary Hypertension Last took Eliquis morning of 01/11 Start therapeutic Lovenox Cardiology consult for perioperative eval echocardiogram Reports severe pulmonary HTN, mild tricuspid and mitral regurgitation, EF 60-65% Switch from Lovenox to Eliquis when it is clear patient will not need surgery/cholecystectomy Chronic hypotension on midodrine Home meds continued COPD on home O2/chronic steroids Home meds continued Hyperlipidemia Depression Home meds continued DVT PPX: Therapeutic Lovenox-switch to eliquis when clear patient will not need surgical intervention Code status: Full Discharge Plan: Home Plan to discharge in: Greater than 2 days
[2024-01-19] MEDS ORDERED: GUAIFENESIN/DM 5 ML UCUP PO PRN (05:50)
[2024-01-19 06:08] LABS: Absolute Basophils 0.1 K/uL (0-0.5); Absolute Eosinophils 0.5 K/uL (0-0.5); Absolute Monocytes 0.8 K/uL (0.1-1.3); Absolute Neutrophil 8.9 K/uL (1.8-8.0); Basophils % 0.8 % (0-1.3); Eosinophils % 3.7 % (0-4.4); Hematocrit 28.8 % (39.6-49.0); Lymphocytes % 22.5 % (15.3-44.8); MCH 23.4 pg (27.0-35.0); MCHC 31.3 g/dL (32.0-36.0); MCV 74.8 fL (80-100); MPV 6.8 fL (7.6-11.3); Platelets 366 thou/uL (152-406); RBC Red Blood Cell Count 3.85 M/uL (4.33-5.43); Red Cell Distribution Width 18.8 % (12.1-15.2)
[2024-01-19 06:29] LABS: Albumin/Globulin Ratio 0.6 (1.1-1.8); Anion Gap 5.4 mEq/L (5.0-15.0); Bilirubin Total 0.3 mg/dL (0.2-1.0); Globulin 3.3 g/dL (2.3-3.5); Potassium 3.4 mEq/L (3.5-5.1); Protein, Total 5.3 g/dL (6.4-8.2)
--- NOTE | 2024-01-19 08:28 | RAD REPORT ---
EXAMINATION: CT ABDOMEN AND PELVIS WITH CONTRAST CLINICAL INDICATION: Male, 73 years old.Follow up acute pancreatitis TECHNIQUE: CT abdomen and pelvis was performed, after the administration of IV contrast, as per [id number]. Axial, sagittal and coronal reconstructions were obtained. One or more of the following dose reduction techniques were used: Automated exposure control, adjustment of the mA and/o r kV according to patient size, and/or iterative reconstruction. Unless otherwise specified, incidental findings do not require dedicated imaging follow-up. [id number]. COMPARISON: 01/13/2024 FINDINGS: LOWER CHEST: Mild lower lung nodularity similar. Small left pleural effusion. Coronary calcifications . Small hiatal hernia. LIVER: Normal in size and contour. No focal lesion. GALLBLADDER/BILE DUCT: Cholelithiasis. No CT evidence of acute cholecystitis.? PANCREAS: Peripancreatic edema is again noted. Again noted is dilatation of the pancreatic duct at th e tail with abrupt transition to nondilated duct at the body. There is a small fluid collection at the tip of the pancreatic tail measuring 20 mm x 8 mm.. SPLEEN: Normal size. No focal lesion. Splenule noted at the pancreatic tail. ADRENALS: Normal; no mass. KIDNEYS AND URETERS: Normal size and contour. No hydronephrosis. GASTROINTESTINAL TRACT: Stomach is non-dilated. Small bowel has normal course and caliber. No colonic wall thickening or pericolonic inflammatory changes. PERITONEUM: No ascites. LYMPH NODES: No lymphadenopathy. ABDOMINAL AORTA AND OTHER VESSELS: Severe atherosclerosis. No aneurysm. URINARY BLADDER: Pronounced bladder wall thickening. Trace bladder gas may be from instrumentation. F oley catheter present. REPRODUCTIVE ORGANS: Procedural changes of the prostate. 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 Multilevel degenerativ e changes are present in the spine. ADDITIONAL FINDINGS: None. IMPRESSION: 1. Findings remain consistent with acute pancreatitis. A small fluid collection is present at the tip of the pancreatic tail. The pancreatic duct at the tail is dilated which is similar to prior. The downstream pancreatic duct at the is normal in caliber. Cause of the dilatation is uncertain but imag ing follow-up is recommended. 2. Pronounced bladder wall thickening which is a chronic finding but the edema within the wall has wo rsened compared with 05/06/23. Suggest correlation with urinalysis. 3. Mild basilar nodularity which could reflect sequela of infection or inflammation. This is similar to 01/13/2024. 4. Lithiasis without CT evidence of acute cholecystitis.
[2024-01-19 08:49] LABS: Atypical Lymphocytes 3 %; Differential Total Cells Count 100; Eosinophils 2 % (0-3); Lymphocytes 12 % (15-42); Monocytes 1 % (0-10); Segmented Neutrophils 72 % (40-80)
[2024-01-19 08:51] LABS: Blood Morphology Comment NOT SEEN (NOT SEEN); Platelet Estimate ADEQ; Smudge Cells PRESENT
[2024-01-19] MEDS: POTASSIUM 25 MEQ EFFERV TAB PO ONE (09:00)
[2024-01-19] MEDS: NA CHLORIDE 0.9% 1,000 ML IV SCH (10:11)
[2024-01-19] MEDS: POTASSIUM CL SA 10 MEQ TAB PO ONE (10:21)
[2024-01-19 17:03] LABS: Absolute Basophils 0.1 K/uL (0-0.5); Absolute Eosinophils 0.3 K/uL (0-0.5); Absolute Lymphocytes (CBC) 1.8 K/uL (0.7-4.9); Absolute Monocytes 0.6 K/uL (0.1-1.3); Absolute Neutrophil 10.4 K/uL (1.8-8.0); Basophils % 0.4 % (0-1.3); Eosinophils % 2.2 % (0-4.4); Hematocrit 28.8 % (39.6-49.0); Hemoglobin 9.1 g/dL (13.6-17.9); Lymphocytes % 13.4 % (15.3-44.8); MCH 23.4 pg (27.0-35.0); MCHC 31.4 g/dL (32.0-36.0); MCV 74.5 fL (80-100); MPV 6.6 fL (7.6-11.3); Monocytes % 4.5 % (3.3-12.3); Neutrophils % 79.5 % (41.7-73.7); Platelets 370 thou/uL (152-406); RBC Red Blood Cell Count 3.87 M/uL (4.33-5.43); Red Cell Distribution Width 19.6 % (12.1-15.2)
--- NOTE | 2024-01-19 17:06 | P.DS ---
Admission Date: 01/13/24 Discharge Date: 01/19/24 Disposition: [place] HOME/HOME HEALTH CARE Discharge Condition: GOOD Reason for Admission: Acute pancreatitis Brief History of Present Illness: Diagnosis Acute pancreatitis Cholelithiasis, distended gallbladder Pancreatic pseudocysts Possible complicated UTIhistory of chronic indwelling Jeffers catheter for urinary retention Chronic diastolic congestive heart failure Atrial fibrillation on chronic anticoagulation Pulmonary Hypertension Chronic hypotension on midodrine COPD on home O2/chronic steroids Hyperlipidemia Depression HPI 01/13/2024 Jose Marcelino is a 73-year-old male history of chronic indwelling Jeffers catheter for urinary retention, chronic diastolic congestive heart failure, atrial fibrillation on chronic anticoagulation therapy, [id number] diabetes, chronic hypotension on midodrine, COPD on home O2/chronic steroids, hyperlipidemia, depression with previous episode of pancreatitis presents to the emergency department with chief complaint of epigastric pain, nausea vomiting and diarrhea for 2 days. Patient was evaluated in the emergency department his labs were significant for a white blood cell count of 21.4 hemoglobin 10.1 hematocrit 32.8 AST 159 ALT 161 alk phos 150 lipase [address] abdomen pelvis with IV contrast was performed which showed mild to moderate pancreatitis, cholelithiasis with mild gallbladder distention, small cystic structures pancreatic tail probably pseudocyst. Also apparent mild thickening wall ascending colon and cecum may indicate a mild colitis or be secondary to incomplete distention. Subsequent abdominal ultrasound was performed which showed distended gallbladder with 6 mm stone, CBD normal, T. bili was also normal labs. Case was discussed with general surgery, GI who will consult, plan for stat MRCP. Patient will be admitted for acute pancreatitis, possible gallbladder pancreatitis. Hospital Course: Jose Marcelino is a pleasant 73-year-old male with a past medical history significant for chronic indwelling Jeffers catheter for urinary retention, chronic diastolic congestive heart failure, atrial fibrillation on chronic anticoagulation therapy, fzr-mddqztb-iztvaapys diabetes, chronic hypotension on midodrine, COPD on home O2/chronic steroids, hyperlipidemia, depression with previous episode of pancreatitis who was admitted to the [facility] on 01/13/2024 for Pancreatitis Jose presented to the ED with complaints of epigastric pain, nausea, vomiting, and diarrhea x 2 days prior to arrival. Lipase resulted at 488, CT abdomen pelvis with IV contrast showed mild to moderate pancreatitis, cholelithiasis with mild gallbladder distention, small cystic structures pancreatic tail probably pseudocyst. The fluids were started and tolerated, abdominal pain has resolved and tolerating p.o. diet. He has had lipase elevation overnight. Plan for clear liquid diet throughout the day with redrawn labs Urinary tract infection with UA growing Citrobacter murliniae and Pseudomonas aeruginosa. He has tolerated cefepime IV and will continue antibiotic course with cefpodoxime and Levaquin. On 01/19/2024, Jose was seen on morning rounds and deemed medically stable for discharge. Jose was discharged with instructions to schedule follow-up appointments with Dr. Jean-Baptiste, Dr. Masterson, PCP. Jose was provided pre scriptions for cefpodoxime and Levaquin. Physical exam GEN: Awake, alert, oriented x3, NAD HEENT: Normal conjunctiva, sclera anicteric CV: Regular rate and rhythm, no edema Pulm: Nonlabored respirations, clear BBS, on room air ABD: Soft on palpation, NT/ND MSK: No joint tenderness : Jeffers in place-chronic indwelling Integumentary: No rashes Neuro: Normal speech, normal affect Vital Signs/Physical Exam: Temp Pulse Resp BP Pulse Ox 97.5 F 61 24 H 152/69 H 95 01/19/24 16:00 01/19/24 16:00 01/19/24 16:00 01/19/24 16:00 01/19/24 16:00 Laboratory Data at Discharge: WBC Cancelled 01/19/24 17:00 Hgb Cancelled 01/19/24 17:00 Hct Cancelled 01/19/24 17:00 Plt Count Cancelled 01/19/24 17:00 PT 14.6 SECONDS (9.4-12.5) H 01/13/24 07:48 INR 1.31 01/13/24 07:48 Sodium Cancelled 01/19/24 17:00 Potassium Cancelled 01/19/24 17:00 BUN Cancelled 01/19/24 17:00 Creatinine Cancelled 01/19/24 17:00 Glucose Cancelled 01/19/24 17:00 Phosphorus Cancelled 01/19/24 17:00 Magnesium Cancelled 01/19/24 17:00 Total Bilirubin 0.3 mg/dL (0.2-1.0) 01/19/24 05:55 AST 51 U/L (15-37) H 01/19/24 05:55 ALT 55 U/L (16-61) 01/19/24 05:55 Alkaline Phosphatase 182 U/L (45-117) H 01/19/24 05:55 Lipase Cancelled 01/19/24 17:00 Home Medications: Amiodarone HCl [Cordarone*] 200 mg PO BID #60 tab 06/17/22 Bupropion *Xl* [Wellbutrin XL*] 150 mg PO DAILY 30 Days #30 tab 03/18/23 Alfuzosin HCl 10 mg PO DAILY 05/07/23 Potassium Chloride 20 meq PO DAILY 05/07/23 Atorvastatin Calcium [Lipitor] 40 mg PO BEDTIME 30 Days #30 tab 05/11/23 Hydrocodone Bit/Acetaminophen [[place] 7.5-325 Tablet] 1 tab PO BID 06/24/23 Pregabalin [Lyrica] 25 mg PO BID 06/24/23 Albuterol Sulfate [Albuterol Sulfate 0.083% Neb Soln] 2.5 mg IH Q6HP PRN 10/01 Albuterol Sulfate [Proair Respiclick] 2 puff IH PRN PRN 09/16/23 Apixaban [Eliquis *] 2.5 mg PO BID 09/16/23 Benzonatate 200 mg PO TID PRN 09/16/23 Furosemide 20 mg PO DAILY 09/16/23 Levocetirizine Dihydrochloride [Allergy Relief] 5 mg PO BEDTIME 09/16/23 Midodrine HCl [Proamatine*] 5 mg PO BID 09/16/23 Ondansetron [Zofran (Odt)*] 4 mg PO Q6H PRN 09/16/23 Prevagen 1 tab PO DAILY 09/16/23 Zinc Gluconate [Zinc] 50 mg PO DAILY 09/16/23 predniSONE [Deltasone*] 10 mg PO DAILY 09/16/23 Apixaban [Eliquis] 5 mg PO BID 01/19/24 Cefpodoxime Proxetil 100 mg PO BID 7 Days #14 tab 01/19/24 Levofloxacin [Levaquin] 500 mg PO BID 7 Days #14 tab 01/19/24 New Medications: Cefpodoxime Proxetil 100 mg PO BID 7 Days #14 tab Levofloxacin [Levaquin] 500 mg PO BID 7 Days #14 tab Physician Discharge Instructions: 1. Please call and schedule a follow-up appointment with your PCP in 3-5 days - Please follow-up with your PCP for medication refills/adjustments 2. Please call and schedule a follow-up appointment with Dr Theodore in 2 weeks -Pancreatitis management 3. Please call and schedule a follow-up appointment with Dr Masterson in 3-4 days -Gallbladder surgery 4. Continue clear diet, advance as tolerated, stay hydrated 5. activity restrictions 6. Return to the ED if symptoms worsen New medications Cefpodoxime 100 mg twice a day x 7 days Levaquin 500 mg twice a day x 7 days Followup: Taylor Muñoz MD [Primary Care Provider] -
[2024-01-19 17:16] LABS: Anion Gap 7.5 mEq/L (5.0-15.0); Magnesium 1.8 mg/dL (1.6-2.4); Potassium 4.5 mEq/L (3.5-5.1)
[2024-01-19 17:19] LABS: Phosphorus 1.4 mg/dL (2.5-4.9)
[2024-01-19] MEDS: SODIUM PHOSPHATE 30 MM in NA CHLORIDE 0.9% 500 ML IV ONE (17:55)
--- NOTE | 2024-01-19 18:12 | P.PN ---
Date of Service: 01/19/24 Subjective: No abdominal pain, changed to CLD and restarted IVF Redraw labs this afternoon with good lipase at 131 Likely discharge in the AM ROS: 10 point ROS as noted above, otherwise negative Physical exam GEN: Awake, alert, and oriented x3, NAD HEENT: Normal conjunctiva, sclera anicteric CV: NSR, no edema Pulm: Nonlabored respirations, symmetrical chest wall movement, on room air ABD: Soft on palpation, Nontender, normal active bowel sounds MSK: No joint tenderness : Jeffers in place-chronic indwelling Integumentary: No rashes Neuro: Normal speech, normal affect Vitals reviewed Assessment: Acute pancreatitis Cholelithiasis, distended gallbladder Pancreatic pseudocysts Possible complicated UTIhistory of chronic indwelling Jeffers catheter for urinary retention Poor appetite Hypophosphatemia Chronic diastolic congestive heart failure Atrial fibrillation on chronic anticoagulation Pulmonary Hypertension Chronic hypotension on midodrine COPD on home O2/chronic steroids Hyperlipidemia Depression Plan: Acute pancreatitis Cholelithiasis, distended gallbladder Pancreatic pseudocysts Possible complicated UTIhistory of chronic indwelling Jeffers catheter for urinary retention Poor appetite LFTs mildly elevated, T. bili normal, no signs of CBD dilatation on ultrasound Discussed case with general surgery, GI who are consulted and will follow MRCP negative Seen by general surgery, start diet ADAT-likely will need outpatient cholecystectomy when pancreatitis resolves [id number]-tprvblom empiric antibiotics with cefepime/Flagyl Blood cultures with no growth in 24 hours Urine cultures grew Citrobacter and Pseudomonas both sensitive to cefepime Lactate less than 2 Monitor CBC daily Serial abdominal exams Suffers from from dysgeusia after COVID Has poor appetite outpatient as well advancing diet to something more palatable-did better 01/15 with diet Patient was reports chronic cough/gagging at home Lipase 304, slow downtrend Hypophosphatemia -phos 1.4 -will replace IV and monitor in AM, replete PRN Chronic diastolic congestive heart failure Atrial fibrillation on chronic anticoagulation Pulmonary Hypertension Last took Eliquis morning of 01/11 Stopped therapeutic Lovenox Cardiology consult for perioperative eval echocardiogram Reports severe pulmonary HTN, mild tricuspid and mitral regurgitation, EF 60-65% Eliquis restarted Chronic hypotension on midodrine Home meds continued COPD on home O2/chronic steroids Home meds continued Hyperlipidemia Depression Home meds continued DVT PPX: eliquis Code status: Full Discharge Plan: Home Plan to discharge in: Greater than 2 days
[2024-01-19 22:55] VITALS: O2SAT 94
[2024-01-20 06:19] LABS: Absolute Basophils 0.1 K/uL (0-0.5); Absolute Eosinophils 0.3 K/uL (0-0.5); Absolute Lymphocytes (CBC) 3.1 K/uL (0.7-4.9); Absolute Monocytes 0.9 K/uL (0.1-1.3); Absolute Neutrophil 7.3 K/uL (1.8-8.0); Basophils % 0.5 % (0-1.3); Eosinophils % 2.9 % (0-4.4); Hematocrit 26.1 % (39.6-49.0); Hemoglobin 8.3 g/dL (13.6-17.9); Lymphocytes % 26.7 % (15.3-44.8); MCH 23.6 pg (27.0-35.0); MCHC 31.8 g/dL (32.0-36.0); MCV 74.1 fL (80-100); MPV 6.7 fL (7.6-11.3); Monocytes % 7.5 % (3.3-12.3); Neutrophils % 62.4 % (41.7-73.7); Platelets 354 thou/uL (152-406); RBC Red Blood Cell Count 3.52 M/uL (4.33-5.43); Red Cell Distribution Width 19.3 % (12.1-15.2)
[2024-01-20 06:37] LABS: Albumin/Globulin Ratio 0.6 (1.1-1.8); Anion Gap 7.7 mEq/L (5.0-15.0); Bilirubin Total 0.3 mg/dL (0.2-1.0); Globulin 3.3 g/dL (2.3-3.5); Magnesium 1.8 mg/dL (1.6-2.4); Phosphorus 3.1 mg/dL (2.5-4.9); Potassium 3.7 mEq/L (3.5-5.1); Protein, Total 5.3 g/dL (6.4-8.2)
[2024-01-20 08:41] VITALS: BP 148/70; TEMP 98.1
[2024-01-20] MEDS: MAGNESIUM SULFATE 1 gm IVPB 1 GM/100 ML BAG IV ONE (09:24)
[2024-01-20] MEDS: POTASSIUM CL SA 10 MEQ TAB PO ONE (09:25)
--- NOTE | 2024-01-20 16:24 | P.DS ---
Admission Date: 01/13/24 Discharge Date: 01/20/24 Reason for Admission: Acute pancreatitis Consultations: Dr. Masterson Brief History of Present Illness: HPI 01/13/2024 Jose Marcelino is a 73-year-old male history of chronic indwelling Jeffers catheter for urinary retention, chronic diastolic congestive heart failure, atrial fibrillation on chronic anticoagulation therapy, haz-snsuyom-mrrhjloyu diabetes, chronic hypotension on midodrine, COPD on home O2/chronic steroids, hyperlipidemia, depression with previous episode of pancreatitis presents to the emergency department with chief complaint of epigastric pain, nausea vomiting and diarrhea for 2 days. Patient was evaluated in the emergency department his labs were significant for a white blood cell count of 21.4 hemoglobin 10.1 hematocrit 32.8 AST 159 ALT 161 alk phos 150 lipase [address] abdomen pelvis with IV contrast was performed which showed mild to moderate pancreatitis, cholelithiasis with mild gallbladder distention, small cystic structures pancreatic tail probably pseudocyst. Also apparent mild thickening wall ascending colon and cecum may indicate a mild colitis or be secondary to incomplete distention. Subsequent abdominal ultrasound was performed which showed distended gallbladder with 6 mm stone, CBD normal, T. bili was also normal labs. Case was discussed with general surgery, GI who will consult, plan for stat MRCP. Patient will be admitted for acute pancreatitis, possible gallbladder pancreatitis. Hospital Course: Jose Marcelino is a pleasant 73-year-old male with a past medical history significant for chronic indwelling Jeffers catheter for urinary retention, chronic diastolic congestive heart failure, atrial fibrillation on chronic anticoagulation therapy, [id number] diabetes, chronic hypotension on midodrine, COPD on home O2/chronic steroids, hyperlipidemia, depression with previous episode of pancreatitis who was admitted to the [facility] on 01/13/2024 for Pancreatitis Jose presented to the ED with complaints of epigastric pain, nausea, vomiting, and diarrhea x 2 days prior to arrival. Lipase resulted at 488, CT abdomen pelvis with IV contrast showed mild to moderate pancreatitis, cholelithiasis with mild gallbladder distention, small cystic structures pancreatic tail probably pseudocyst. The fluids were started and tolerated, abdominal pain has resolved and tolerating p.o. diet. He has had lipase elevation overnight. Plan for clear liquid diet throughout the day with redrawn labs Urinary tract infection with UA growing Citrobacter murliniae and Pseudomonas aeruginosa. He has tolerated cefepime IV and will continue antibiotic course with cefpodoxime and Levaquin. On 01/19/2024, Jose was seen on morning rounds and deemed medically stable for discharge. Jose was discharged with instructions to schedule follow-up appointments with Dr. Jean-Baptiste, Dr. Masterson, PCP. Jose was provided prescriptions for cefpodoxime and Levaquin. <Cindy Elizondo - Last Filed: 01/20/24 16:24> Admission Date: 01/13/24 Discharge Date: 01/23/24 Brief History of Present Illness: Discharge diagnosis Acute pancreatitis Cholelithiasis, distended gallbladder Pancreatic pseudocysts Possible complicated UTIhistory of chronic indwelling Jeffers catheter for urinary retention Poor appetite Hypophosphatemia Chronic diastolic congestive heart failure Atrial fibrillation on chronic anticoagulation Pulmonary Hypertension Chronic hypotension on midodrine COPD on home O2/chronic steroids Hyperlipidemia Depression <patria king - Last Filed: 01/23/24 16:45> Disposition: [place] HOME/HOME HEALTH CARE Discharge Condition: GOOD Vital Signs/Physical Exam: Temp Pulse Resp BP Pulse Ox 98.1 F 64 18 148/70 H 98 01/20/24 08:00 01/20/24 08:00 01/20/24 08:00 01/20/24 08:00 01/20/24 08:00 General: Alert, In no apparent distress, Oriented x3 HEENT: Atraumatic, Normocephalic Neck: Supple Respiratory: Clear to auscultation bilaterally, Normal air movement Cardiovascular: Normal pulses Capillary refill: <2 Seconds Gastrointestinal: Soft and benign Musculoskeletal: No clubbing, No swelling Integumentary: No rashes Neurological: Normal speech, Normal tone, Normal affect Lymphatics: No axilla or inguinal lymphadenopathy External genitalia: Deferred Rectal: Deferred Laboratory Data at Discharge: WBC 11.70 thou/uL (4.3-10.9) H 01/20/24 06:00 Hgb 8.3 g/dL (13.6-17.9) L D 01/20/24 06:00 Hct 26.1 % (39.6-49.0) L 01/20/24 06:00 Plt Count 354 thou/uL (152-406) 01/20/24 06:00 PT 14.6 SECONDS (9.4-12.5) H 01/13/24 07:48 INR 1.31 01/13/24 07:48 Sodium 138 mEq/L (136-145) 01/20/24 06:00 Potassium 3.7 mEq/L (3.5-5.1) D 01/20/24 06:00 BUN 17 mg/dL (7-18) 01/20/24 06:00 Creatinine 1.09 mg/dL (0.70-1.30) 01/20/24 06:00 Glucose 93 mg/dL (74-106) 01/20/24 06:00 Phosphorus 3.1 mg/dL (2.5-4.9) 01/20/24 06:00 Magnesium 1.8 mg/dL (1.6-2.4) 01/20/24 06:00 Total Bilirubin 0.3 mg/dL (0.2-1.0) 01/20/24 06:00 AST 43 U/L (15-37) H 01/20/24 06:00 ALT 46 U/L (16-61) 01/20/24 06:00 Alkaline Phosphatase 177 U/L (45-117) H 01/20/24 06:00 Lipase 86 U/L (13-75) H 01/20/24 06:00 <Elizondo,Cindy Lavell - Last Filed: 01/20/24 16:24> Vital Signs/Physical Exam: Temp Pulse Resp BP Pulse Ox 98.1 F 64 18 148/70 H 98 01/20/24 08:00 01/20/24 08:00 01/20/24 08:00 01/20/24 08:00 01/20/24 08:00 Laboratory Data at Discharge: WBC 11.70 thou/uL (4.3-10.9) H 01/20/24 06:00 Hgb 8.3 g/dL (13.6-17.9) L D 01/20/24 06:00 Hct 26.1 % (39.6-49.0) L 01/20/24 06:00 Plt Count 354 thou/uL (152-406) 01/20/24 06:00 PT 14.6 SECONDS (9.4-12.5) H 01/13/24 07:48 INR 1.31 01/13/24 07:48 Sodium 138 mEq/L (136-145) 01/20/24 06:00 Potassium 3.7 mEq/L (3.5-5.1) D 01/20/24 06:00 BUN 17 mg/dL (7-18) 01/20/24 06:00 Creatinine 1.09 mg/dL (0.70-1.30) 01/20/24 06:00 Glucose 93 mg/dL (74-106) 01/20/24 06:00 Phosphorus 3.1 mg/dL (2.5-4.9) 01/20/24 06:00 Magnesium 1.8 mg/dL (1.6-2.4) 01/20/24 06:00 Total Bilirubin 0.3 mg/dL (0.2-1.0) 01/20/24 06:00 AST 43 U/L (15-37) H 01/20/24 06:00 ALT 46 U/L (16-61) 01/20/24 06:00 Alkaline Phosphatase 177 U/L (45-117) H 01/20/24 06:00 Lipase 86 U/L (13-75) H 01/20/24 06:00 <patria king - Last Filed: 01/23/24 16:45> Diet: AHA Activity: Ad ginna <Cindy Elizondo - Last Filed: 01/20/24 16:24> <patria king - Last Filed: 01/23/24 16:45> Home Medications: Amiodarone HCl [Cordarone*] 200 mg PO BID #60 tab 06/17/22 Bupropion *Xl* [Wellbutrin XL*] 150 mg PO DAILY 30 Days #30 tab 03/18/23 Alfuzosin HCl 10 mg PO DAILY 05/07/23 Potassium Chloride 20 meq PO DAILY 05/07/23 Atorvastatin Calcium [Lipitor] 40 mg PO BEDTIME 30 Days #30 tab 05/11/23 Hydrocodone Bit/Acetaminophen [[place] 7.5-325 Tablet] 1 tab PO BID 06/24/23 Pregabalin [Lyrica] 25 mg PO BID 06/24/23 Albuterol Sulfate [Albuterol Sulfate 0.083% Neb Soln] 2.5 mg IH Q6HP PRN 09/16/23 Albuterol Sulfate [Proair Respiclick] 2 puff IH PRN PRN 09/16/23 Apixaban [Eliquis *] 2.5 mg PO BID 09/16/23 Benzonatate 200 mg PO TID PRN 09/16/23 Furosemide 20 mg PO DAILY 09/16/23 Levocetirizine Dihydrochloride [Allergy Relief] 5 mg PO BEDTIME 09/16/23 Midodrine HCl [Proamatine*] 5 mg PO BID 09/16/23 Ondansetron [Zofran (Odt)*] 4 mg PO Q6H PRN 09/16/23 Prevagen 1 tab PO DAILY 09/16/23 Zinc Gluconate [Zinc] 50 mg PO DAILY 09/16/23 predniSONE [Deltasone*] 10 mg PO DAILY 09/16/23 Apixaban [Eliquis] 5 mg PO BID 01/19/24 Cefpodoxime Proxetil 100 mg PO BID 7 Days #14 tab 01/19/24 Levofloxacin [Levaquin] 500 mg PO BID 7 Days #14 tab 01/19/24 New Medications: Cefpodoxime Proxetil 100 mg PO BID 7 Days #14 tab Levofloxacin [Levaquin] 500 mg PO BID 7 Days #14 tab Physician Discharge Instructions: 1. Please call and schedule a follow-up appointment with your PCP in 3-5 days - Please follow-up with your PCP for medication refills/adjustments 2. Please call and schedule a follow-up appointment with Dr Theodore in 2 weeks -Pancreatitis management 3. Please call and schedule a follow-up appointment with Dr Masterson in 3-4 days -Gallbladder surgery 4. Continue clear diet, advance as tolerated, stay hydrated 5. activity restrictions 6. Return to the ED if symptoms worsen New medications Cefpodoxime 100 mg twice a day x 7 days Levaquin 500 mg twice a day x 7 days Followup: Taylor Muñoz MD [Primary Care Provider] - Followup: Taylor Muñoz MD [Primary Care Provider] - 1-2 Weeks Deonte Theodore MD [ASSOCIATE-ACTIVE - CAN ADMIT] - 1-2 Weeks Edvin Masterson MD [ACTIVE - CAN ADMIT] -
--- NOTE | 2024-01-21 16:23 | EKG ---
Test Date: 2024-01-13 Test Time: 07:38:27 Medical Front Desk Coordinator: SERGIO MEASUREMENT RESULTS: Intervals: Rate: 60 NH: 228 QRSD: 188 QT: 622 QTc: 622 [place]: P: 86 NH: 228 QRS: -61 T: 57 INTERPRETIVE STATEMENTS: Sinus rhythm with 1st degree AV block Right bundle branch block Left anterior fascicular block Bifascicular block Abnormal ECG Compared to ECG 06/23/2023 16:22:24 Left anterior fascicular block now present Bifascicular block now present Electronically Signed On 01-21-24 16:10:20 [employer] by Chaz Vang
== END 2024-01-20 16:12 | disposition home health service (06) | DRG 439 ==
LOC: ER 07:06 → 2ND 10:26
PROVIDERS: ADMIT Hospitalist; ATTEND Internal Medicine
PROC: 0T9B70Z Drainage of Bladder with Drainage Device, Via Natural or Artificial Opening (ICD-10-PCS; principal; 2024-01-13)
DX: K85.90 Acute pancreatitis without necrosis or infection, unspecified (principal); I50.32 Chronic diastolic (congestive) heart failure; T83.518A Infection and inflammatory reaction due to other urinary catheter, initial encounter; N39.0 Urinary tract infection, site not specified; K86.3 Pseudocyst of pancreas; I11.0 Hypertensive heart disease with heart failure; I48.91 Unspecified atrial fibrillation; I45.10 Unspecified right bundle-branch block; E78.5 Hyperlipidemia, unspecified; F32.A Depression, unspecified; I95.89 Other hypotension; K52.9 Noninfective gastroenteritis and colitis, unspecified; E83.39 Other disorders of phosphorus metabolism; E11.649 Type 2 diabetes mellitus with hypoglycemia without coma; K82.8 Other specified diseases of gallbladder; K80.20 Calculus of gallbladder without cholecystitis without obstruction; J44.9 Chronic obstructive pulmonary disease, unspecified; B96.5 Pseudomonas (aeruginosa) (mallei) (pseudomallei) as the cause of diseases classified elsewhere; B96.89 Other specified bacterial agents as the cause of diseases classified elsewhere; R33.9 Retention of urine, unspecified; Z88.8 Allergy status to other drugs, medicaments and biological substances; Z79.01 Long term (current) use of anticoagulants; Z79.52 Long term (current) use of systemic steroids; Z99.81 Dependence on supplemental oxygen; Z79.899 Other long term (current) drug therapy; Z87.891 Personal history of nicotine dependence
CPT/HCPCS: 36415; 74177; 74181; 76705; 80048; 80053; 81001; 82947; 83605; 83690; 83735; 84100; 84132; 84484; 85025; 85610; 87040; 87077; 87086; 87088; 87186; 87804; 87811; 93005; 93306; 96361; 96365; 96375; 97116; 97163; 97530; 97542; 99285; J0692; J0696; J2270; J2405; J3475; J3480; J7030; J7040; J7512; J7613; J7799; Q9967

== ENCOUNTER 2024-02-26 00:07 | Inpatient (IN) | payer OTHER ==
[2024-02-26 01:01] LABS: Absolute Basophils 0.1 K/uL (0-0.5); Absolute Eosinophils 0.7 K/uL (0-0.5); Absolute Lymphocytes (CBC) 2.9 K/uL (0.7-4.9); Absolute Monocytes 1.5 K/uL (0.1-1.3); Absolute Neutrophil 15.2 K/uL (1.8-8.0); Basophils % 0.3 % (0-1.3); Eosinophils % 3.5 % (0-4.4); Hematocrit 27.2 % (39.6-49.0); Hemoglobin 8.5 g/dL (13.6-17.9); Lymphocytes % 14.1 % (15.3-44.8); MCH 23.2 pg (27.0-35.0); MCHC 31.4 g/dL (32.0-36.0); MCV 73.7 fL (80-100); Monocytes % 7.3 % (3.3-12.3); Neutrophils % 74.8 % (41.7-73.7); Platelets 462 thou/uL (152-406); RBC Red Blood Cell Count 3.69 M/uL (4.33-5.43); Red Cell Distribution Width 18.8 % (12.1-15.2)
[2024-02-26 01:24] LABS: Albumin/Globulin Ratio 0.6 (1.1-1.8); Anion Gap 9.9 mEq/L (5.0-15.0); Bilirubin Total 0.4 mg/dL (0.2-1.0); Globulin 3.6 g/dL (2.3-3.5); Potassium 3.9 mEq/L (3.5-5.1); Protein, Total 5.6 g/dL (6.4-8.2)
[2024-02-26 01:33] LABS: Specific Gravity 1.021 (1.005-1.030); Sqamous Epithelial <5 /HPF (None Seen); Urine Bacteria <20 /HPF (<20); Urine Bilirubin NEGATIVE (Negative); Urine Blood 1+ (Negative); Urine Clarity Extremely Turbid (Clear); Urine Color Yellow (Yellow); Urine Crystals Unidentified Few /HPF (None Seen); Urine Culture Reflex Order REFLEXED; Urine Glucose NEGATIVE (Negative); Urine Ketones NEGATIVE (Negative); Urine Microscopic Reflex YN ORDER UMIC; Urine Mucus Slight /HPF (None Seen); Urine Nitrite 2+ (Negative); Urine Protein 1+ (Negative); Urine Urobilinogen Normal (Normal); Urine WBC >50 /HPF (<5); Urine WBC Clump Occasional /HPF (None Seen); Urine pH 5.5 (5.0-7.0)
--- NOTE | 2024-02-26 03:52 | EDPHYS ---
Physician Documentation [facility] Name: Jose Marcelino Age: 74 yrs Sex: Male : 1950 Arrival Date: 02/26/2024 Time: 00:07 Bed 8 Private MD: ED Physician Freddie Herman HPI: 02/25 01:10 This 74 yrs old Male presents to ER via EMS with complaints of Abdominal Pain. rt 01:10 Patient presents to the ED with left upper quadrant pain for the past 24 hours. Patient rt states that it comes and goes. Has associated nausea. Patienthad recent appointment for discussion regarding gallbladder removal, ever, they opted to not to the gallbladder out denies any pain currently, symptoms are moderate in severity, no other aggravating or alleviating factors.. Historical: - Allergies: 00:10 Amoxicillin; al5 00:10 Atrovent; al5 00:10 hydrochlorothiazide; al5 00:10 limestone; al5 - Home Meds: 00:10 Albuterol Inhl [Active]; amiodarone 200 mg Oral Tablet 1 tab 2 times per day [Active]; al5 atorvastatin oral [Active]; benzonatate 200 mg Oral capsule [Active]; Eliquis 2.5 mg Oral Tablet 1 tab 2 times per day [Active]; metformin 1 Oral Tablet 1 tab 2 times per day [Active]; simvastatin 80 mg Oral Tablet [Active]; lisinopril 5 mg Oral Tablet 1 tab daily [Active]; pregabalin 25 mg Oral capsule [Active]; benzonatate oral 3 times per day [Active]; Lyrica Oral 2 times per day [Active]; Furosemide Oral [Active]; potassium chloride 20 mEq Oral tablet [Active]; sertraline oral [Active]; - PMHx: 00:10 Asthma; Chronic obstructive lung disease; Atrial fibrillation; Congestive heart al5 failure; diabetes mellitus; Hypertensive disorder; - Immunization history:: Adult Immunizations up to date. - Infectious Disease History:: Denies. - Social history:: Smoking status: unknown. - Family history:: not pertinent. ROS: 01:10 Constitutional: Negative for fever, chills, and weight loss, Cardiovascular: Negative rt for chest pain, palpitations, and edema, Respiratory: Negative for shortness of breath, cough, wheezing, and pleuritic chest pain, MS/Extremity: Negative for injury and deformity, Skin: Negative for injury, rash, and discoloration, Neuro: Negative for headache, weakness, numbness, tingling, and seizure, 01:10 Abdomen/GI: Positive for abdominal pain, nausea, Exam: 01:10 Constitutional: This is a well developed, well nourished patient who is awake, alert, rt and in no acute distress. Head/Face: Normocephalic, atraumatic. Chest/axilla: Normal chest wall appearance and motion. Nontender with no deformity. No lesions are appreciated. Cardiovascular: Regular rate and rhythm with a normal S1 and S2. No gallops, murmurs, or rubs. Normal PMI, no JVD. No pulse deficits. Respiratory: Lungs have equal breath sounds bilaterally, clear to auscultation and percussion. No rales, rhonchi or wheezes noted. No increased work of breathing, no retractions or nasal flaring. Abdomen/GI: Soft, non-tender, with normal bowel sounds. No distension or tympany. No guarding or rebound. No evidence of tenderness throughout. Skin: Warm, dry with normal turgor. Normal color with no rashes, no lesions, and no evidence of cellulitis. MS/ Extremity: Pulses equal, no cyanosis. Neurovascular intact. Full, normal range of motion. Neuro: Awake and alert, GCS 15, oriented to person, place, time, and situation. Cranial nerves II-XII grossly intact. Motor strength 5/5 in all extremities. Sensory grossly intact. Cerebellar exam normal. Normal gait. 01:10 ECG was reviewed by the Attending Physician. Vital Signs: 00:14 BP 123 / 66; Pulse 66; Resp 16; Temp 99; Pulse Ox 95% on R/A; Weight 66.68 kg; Height 5 al5 ft. 7 in. ; 00:15 BP 120 / 44; Pulse 62; Resp 16; Pulse Ox 93% on R/A; al5 00:30 BP 107 / 45; Pulse 62; Resp 15; Pulse Ox 93% on R/A; al5 00:45 BP 114 / 41; Pulse 61; Resp 15; Pulse Ox 93% on R/A; al5 01:00 BP 131 / 44; Pulse 61; Resp 14; Pulse Ox 95% on 2 lpm NC; al5 01:15 BP 122 / 47; Pulse 60; Resp 14; Pulse Ox 98% on 2 lpm NC; al5 02:35 BP 116 / 53; Pulse 62; Resp 17 S; Pulse Ox 99% on 2 lpm NC; ha1 03:18 BP 125 / 52; Pulse 66; Resp 18; Pulse Ox 100% on R/A; ha1 04:05 BP 114 / 48; Pulse 63; Resp 17 S; Pulse Ox 99% on 2 lpm NC; ha1 04:23 BP 138 / 48; Pulse 63; Resp 18 S; Pulse Ox 99% on 2 lpm NC; ha1 00:14 Body Mass Index 23.02 (66.68 kg, 170.18 cm) al5 MDM: 00:12 Medical Screening Exam initiated rt 04:25 Differential Diagnosis Pancreatitis, gastritis, cholecystitis. Data reviewed: vital rt signs, nurses notes, lab test result(s), EKG, radiologic studies. Consideration of Admission/Observation Patient was admitted/placed on observation. Management of patient was discussed with the following: Hospitalist: Agrees to admit. I considered the following discharge prescriptions or medication management in the emergency department Medications were administered in the Emergency Department. See MAR. Independent interpretation of the following test(s) in the Emergency Department CT Scan: My interpretation is No bowel obstruction seen on my interpretation of CT scan images. Care significantly affected by the following chronic conditions: Chronic Obstructive Pulmonary Disease. Counseling: I had a detailed discussion with the patient and/or guardian regarding the historical points, exam findings, and any diagnostic results supporting the discharge/admit diagnosis, lab results, radiology results, the need for further work-up and treatment in the hospital. Response to treatment: the patient's symptoms have mildly improved after treatment. ED course: Patient is a pancreatitis, however, I do not believe that he has a gallstone pancreatitis due to lack of intrahepatic biliary ductal dilation on the CT scan as well as a lack of elevation of the transaminases, bilirubin. 02/25 00:34 Order name: CBC with Diff 02/25 00:34 Order name: CMP; Complete Time: :32 ha02/25 00:34 Order name: Lipase; Complete Time: : ha02/25 00:52 Order name: Urinalysis w/ reflexes; Complete Time: :42 rt 02/25 00:52 Order name: Troponin High Sensitivity; Complete Time: 01:18 rt 02/25 01:43 Order name: Urine Culture EDMS 02/25 03:43 Order name: Lipid Profile rt 02/25 04:01 Order name: Urinalysis w/ reflexes EDMS 02/25 04:03 Order name: Lactate w/ 2H reflex if indic. EDMS 02/25 04:03 Order name: Magnesium EDMS 02/25 04:03 Order name: Phosphorus EDMS 02/25 04:03 Order name: Urinalysis w/ reflexes EDMS 02/25 04:03 Order name: Basic Metabolic Panel EDMS 02/25 04:03 Order name: Basic Metabolic Panel EDMS 02/25 04:03 Order name: Basic Metabolic Panel EDMS 02/25 04:03 Order name: Basic Metabolic Panel EDMS 02/25 04:03 Order name: CBC with Automated Diff EDMS 02/25 04:03 Order name: CBC with Automated Diff EDMS 02/25 04:03 Order name: CBC with Automated Diff EDMS 02/25 04:03 Order name: CBC with Automated Diff EDMS 02/25 04:09 Order name: Lipase EDMS 02/25 04:09 Order name: Lipase EDMS 02/25 04:09 Order name: Lipase EDMS 02/25 04:09 Order name: Lipase EDMS 02/25 05:10 Order name: Manual Differential EDMS 02/25 00:52 Order name: CT Abd/Pelvis - IV Contrast Only rt 02/25 00:52 Order name: EKG; Complete Time: 00:52 rt 02/25 00:34 Order name: IV Saline Lock; Complete Time: 00:35 ha1 02/25 00:34 Order name: Labs collected and sent; Complete Time: 00:35 ha1 02/25 00:52 Order name: EKG - Nurse/Tech; Complete Time: 00:56 rt EC:10 Rate is 64 beats/min. Rhythm is regular, 1st Degree Block with No ectopy, Bifascicular rt block. Left axis deviation noted. [place] interval is prolonged at 218 msec. QRS interval is normal. QT interval is normal. No Q waves. Administered Medications: 04:22 Drug: metroNIDAZOLE IVPB 500 mg 100 ml IVPB at 200 ml/hr once over 30 mins Volume: 100 ha1 ml; Route: IVPB; Rate: 200 ml/hr; Infused Over: 30 mins; Site: left forearm; 05:00 Follow up: Response: No adverse reaction; IV Status: Completed infusion; IV Intake: ha1 100ml 04:22 Drug: NS 0.9% IV 500 ml 500 ml IV at 1 bolus once; to be given as a bolus over 30 ha1 minutes Volume: 500 ml; Route: IV; Rate: 1 bolus; Site: left forearm; 06:16 Follow up: Response: No adverse reaction; IV Status: Completed infusion; IV Intake: ha1 500ml 05:03 Drug: Ciprofloxacin IVPB 400 mg 200 ml IVPB once over 60 mins Volume: 200 ml; Route: ha1 IVPB; Infused Over: 60 mins; Site: left forearm; 06:16 Follow up: Response: No adverse reaction; IV Status: Completed infusion; IV Intake: ha1 200ml Disposition Summary: 02/26/24 03:51 Hospitalization Ordered Notes: Hospitalization Status: Inpatient Admission rt Provider: Prince Michael rt Location[facility] ([facility] rt Condition: Fair rt Problem: new rt Symptoms: have improved rt Bed/Room Type: Standard rt Room Assignment: 216(02/26/24 05:31) cg Diagnosis - Acute pancreatitis rt Forms: - Medication Reconciliation Form rt - SBAR form rt - Leadership Thank You Letter rt Signatures: Dispatcher [employer] Hanna Healy RN RN cg Traci Chacon RN RN ha1 Freddie Herman MD MD rt Alessia Lyman RN RN al5 Corrections: (The following items were deleted from the chart) 00:35 00:35 CBC+H.LAB.BRZ ordered. EDMS EDMS 00:35 00:35 COMPREHENSIVE METABOLIC PANEL+C.LAB.BRZ ordered. EDMS EDMS 00:35 00:35 LIPASE+C.LAB.BRZ ordered. EDMS EDMS 05:31 03:51 rt cg
--- NOTE | 2024-02-26 03:52 | ER ---
Nurse's Notes [facility] Name: Jose Marcelino Age: 74 yrs Sex: Male : 1950 Arrival Date: 02/26/2024 Time: 00:07 Bed 8 Private MD: Diagnosis: Acute pancreatitis Presentation: 02/25 00:14 Chief complaint: Patient states: c/o LUQ pain, states he was supposed to have his gall al5 bladder removed a week ago, but the doctor ended up deciding against it. Coronavirus screen: At this time, the client does not indicate any symptoms associated with coronavirus-19. Ebola Screen: No symptoms or risks identified at this time. Initial Sepsis Screen: Does the patient meet any 2 criteria? No. Patient's initial sepsis screen is negative. Does the patient have a suspected source of infection? No. Patient's initial sepsis screen is negative. Risk Assessment: Do you want to hurt yourself or someone else? Patient reports no desire to harm self or others. Onset of symptoms was February 26, 2024. 00:14 Method Of Arrival: EMS: [facility] al5 00:14 Acuity: PHUC 3 al5 00:16 Care prior to arrival: IV initiated. 20 GA, in the left wrist. al5 Triage Assessment: 00:13 General: Appears in no apparent distress. uncomfortable, Behavior is calm, cooperative. al5 Pain: Complains of pain in left upper quadrant. EENT: No signs and/or symptoms were reported regarding the EENT system. Neuro: Level of Consciousness is awake, alert, obeys commands, Oriented to person, place, time, situation. Cardiovascular: Capillary refill < 3 seconds Patient's skin is warm and dry. Respiratory: Airway is patent Respiratory effort is even, unlabored, Respiratory pattern is regular, symmetrical, chronic 2 L NC. GI: Abdomen is round. : Jeffers in place to gravity drainage. Derm: Skin is intact, Skin is pink, warm \T\ dry. normal. Musculoskeletal: No signs and/or symptoms reported regarding the musculoskeletal system. Historical: - Allergies: 00:10 Amoxicillin; al5 00:10 Atrovent; al5 00:10 hydrochlorothiazide; al5 00:10 limestone; al5 - Home Meds: 00:10 Albuterol Inhl [Active]; amiodarone 200 mg Oral Tablet 1 tab 2 times per day [Active]; al5 atorvastatin oral [Active]; benzonatate 200 mg Oral capsule [Active]; Eliquis 2.5 mg Oral Tablet 1 tab 2 times per day [Active]; metformin 1 Oral Tablet 1 tab 2 times per day [Active]; simvastatin 80 mg Oral Tablet [Active]; lisinopril 5 mg Oral Tablet 1 tab daily [Active]; pregabalin 25 mg Oral capsule [Active]; benzonatate oral 3 times per day [Active]; Lyrica Oral 2 times per day [Active]; Furosemide Oral [Active]; potassium chloride 20 mEq Oral tablet [Active]; sertraline oral [Active]; - PMHx: 00:10 Asthma; Chronic obstructive lung disease; Atrial fibrillation; Congestive heart al5 failure; diabetes mellitus; Hypertensive disorder; - Immunization history:: Adult Immunizations up to date. - Infectious Disease History:: Denies. - Social history:: Smoking status: unknown. - Family history:: not pertinent. Screenin:17 [facility] ED Fall Risk Assessment (Adult) History of falling in the last 3 months, al5 including since admission No falls in past 3 months (0 pts) Confusion or Disorientation No (0 pts) Intoxicated or Sedated No (0 pts) Impaired Gait Yes (1 pt) Mobility Assist Device Used Yes (1 pt) Altered Elimination Yes (1 pt) Score/Fall Risk Level 3 or more points = High Risk Oriented to surroundings, Maintained a safe environment, Hourly rounding (assess needs \T\ fall precautionary measures) done, Used ambulatory aids as needed (educated on \T\ assisted with), Utilized family, sitter, or virtual emergency medical tech as indicated. Abuse screen: Denies threats or abuse. Denies injuries from another. Nutritional screening: No deficits noted. Tuberculosis screening: No symptoms or risk factors identified. Assessment: 00:16 Reassessment: see triage assessment. al5 00:18 GI: Bowel sounds present X 4 quads. Abd is soft X 4 quads Abdomen is tender to al5 palpation in left upper quadrant. 01:14 Reassessment: Patient appears in no apparent distress at this time. No changes from al5 previously documented assessment. Patient and/or family updated on plan of care and expected duration. Pain level reassessed. Patient is alert, oriented x 3, equal unlabored respirations, skin warm/dry/pink. 02:10 Reassessment: Patient and/or family updated on plan of care and expected duration. Pain ha1 level reassessed. Patient is alert, oriented x 3, equal unlabored respirations, skin warm/dry/pink. 04:13 Reassessment: Patient appears in no apparent distress at this time. No changes from al5 previously documented assessment. Patient and/or family updated on plan of care and expected duration. Pain level reassessed. Patient is alert, oriented x 3, equal unlabored respirations, skin warm/dry/pink. Vital Signs: 00:14 BP 123 / 66; Pulse 66; Resp 16; Temp 99; Pulse Ox 95% on R/A; Weight 66.68 kg; Height 5 al5 ft. 7 in. ; 00:15 BP 120 / 44; Pulse 62; Resp 16; Pulse Ox 93% on R/A; al5 00:30 BP 107 / 45; Pulse 62; Resp 15; Pulse Ox 93% on R/A; al5 00:45 BP 114 / 41; Pulse 61; Resp 15; Pulse Ox 93% on R/A; al5 01:00 BP 131 / 44; Pulse 61; Resp 14; Pulse Ox 95% on 2 lpm NC; al5 01:15 BP 122 / 47; Pulse 60; Resp 14; Pulse Ox 98% on 2 lpm NC; al5 02:35 BP 116 / 53; Pulse 62; Resp 17 S; Pulse Ox 99% on 2 lpm NC; ha1 03:18 BP 125 / 52; Pulse 66; Resp 18; Pulse Ox 100% on R/A; ha1 04:05 BP 114 / 48; Pulse 63; Resp 17 S; Pulse Ox 99% on 2 lpm NC; ha1 04:23 BP 138 / 48; Pulse 63; Resp 18 S; Pulse Ox 99% on 2 lpm NC; ha1 00:14 Body Mass Index 23.02 (66.68 kg, 170.18 cm) al5 ED Course: 00:08 Patient arrived in ED. am2 00:10 Freddie Herman MD is Attending Physician. rt 00:10 Alessia Lyman RN is Primary Nurse. al5 00:16 Triage completed. al5 00:16 Arm band placed on right wrist. Patient placed in the treatment room, on a stretcher, al5 on pulse oximetry. 00:17 No provider procedures requiring assistance completed. Maintain EMS IV. Dressing al5 intact. Good blood return noted. Site clean \T\ dry. Gauge \T\ site: 20G L wrist. Flushed with 10 mL NS. 00:18 Patient has correct armband on for positive identification. Bed in low position. Call al5 light in reach. Side rails up X 1. Provided Education on: plan of care. 00:44 CBC with Diff Sent. hw 00:44 CMP Sent. hw 00:44 Lipase Sent. hw 00:45 EKG done, by ED staff, reviewed by Freddie Herman MD. hw 01:44 CT Abd/Pelvis - IV Contrast Only In Process Unspecified. EDMS 03:50 Prince Rodriguez MD is Hospitalizing Provider. rt 05:33 Patient admitted, IV remains in place. al5 Administered Medications: 04:22 Drug: metroNIDAZOLE IVPB 500 mg 100 ml IVPB at 200 ml/hr once over 30 mins Volume: 100 ha1 ml; Route: IVPB; Rate: 200 ml/hr; Infused Over: 30 mins; Site: left forearm; 05:00 Follow up: Response: No adverse reaction; IV Status: Completed infusion; IV Intake: ha1 100ml 04:22 Drug: NS 0.9% IV 500 ml 500 ml IV at 1 bolus once; to be given as a bolus over 30 ha1 minutes Volume: 500 ml; Route: IV; Rate: 1 bolus; Site: left forearm; 06:16 Follow up: Response: No adverse reaction; IV Status: Completed infusion; IV Intake: ha1 500ml 05:03 Drug: Ciprofloxacin IVPB 400 mg 200 ml IVPB once over 60 mins Volume: 200 ml; Route: ha1 IVPB; Infused Over: 60 mins; Site: left forearm; 06:16 Follow up: Response: No adverse reaction; IV Status: Completed infusion; IV Intake: ha1 200ml Medication: 00:17 VIS not applicable for this client. al5 Intake: 05:00 IV: 100ml; Total: 100ml. ha1 06:16 IV: 500ml; Total: 600ml. ha1 06:16 IV: 200ml; Total: 800ml. ha1 Outcome: 03:51 Decision to Hospitalize by Provider. rt 06:15 Admitted to Med/surg accompanied by tech, room 216, with chart, ha1 06:15 Condition: stable 06:15 Instructed on the need for admit, Demonstrated understanding of instructions, 06:17 Patient left the ED. ha1 Signatures: Dispatcher [employer] EDAlessia Pelletier am2 Traci Chacon RN RN ha1 Freddie Herman MD MD rt Alessia Lyman RN RN al5 Tonia Alvarado
--- NOTE | 2024-02-26 03:56 | RAD REPORT ---
CLINICAL HISTORY: Abdominal pain. COMPARISON: CT Abdomen Pelvis 01/19/2024. TECHNIQUE: CT ABDOMEN PELVIS WITH IV CONTRAST on 02/26/2024 12:52 AM SENIOR IT RECRUITER This exam was performed according to our departmental dose-optimization program, which includes autom ated exposure control, adjustment of the mA and/or kV according to patient size and/or use of iterative reconstruction technique. FINDINGS: There is lower lung emphysema. Abdomen: There is mild perihepatic ascites. There is no biliary dilatation. Gallbladder contains a ga llstone. Spleen is normal in size. There is mild inflammation surrounding the pancreas cystic replacement of the tail measuring 2.7 x 2.1 cm. Second fluid collection at the tip of the pancreatic tail adjacent to the spleen measures 4.7 cm and is new. Adrenal glands are normal. Kidneys are mildly atrophic. Abdominal aorta is densely calcified without aneurysm. There is no free air. There is no retroperiton eal adenopathy. Pelvis: There is no bowel obstruction. Urinary bladder contains a Jeffers catheter. There is trace free pelvic fluid. Multiple surgical clips in the area of the prostate gland. Appendix is not clearly seen. Skeleton: There are no acute osseous findings. No suspicious bony lesions. IMPRESSION: Continued findings of acute pancreatitis with several pseudocysts of the pancreatic tail which are pr ogressive. Resolution of left pleural effusion with development of trace perihepatic ascites. Electronically signed by: Santos Rodriguez MD 02/26/2024 03:23 AM SENIOR IT RECRUITER RP Due to temporary technical issues with the PACS/[facility] reporting system, reports are being beatrice d by the in-house radiologist without review as a courtesy to ensure prompt reporting the interpreting radiologist is fully responsible for the content of the report. Transcribed Date/Time: 02/26/2024 3:55 AM
[2024-02-26] MEDS ORDERED: ONDANSETRON 4 MG/2 ML VIAL IV PRN (03:59)
[2024-02-26] MEDS ORDERED: ACETAMINOPHEN 500 MG TAB PO PRN (03:59)
[2024-02-26] MEDS: NA CHLORIDE 0.9% 1,000 ML IV SCH ×2 (04:00→14:40)
[2024-02-26] MEDS: CEFTRIAXONE 1,000 MG in NA CHLORIDE 0.9% 50 ML IVPB SCH (04:01)
--- NOTE | 2024-02-26 04:07 | P.HP ---
Certification for Inpatient Patient admitted to: Inpatient With expected LOS: >2 Midnights Practitioner: I am a practitioner with admitting privileges, knowledge of patient current condition, hospital course, and medical plan of care. Services: Services provided to patient in accordance with Admission requirements found in Title 42 Section 412.3 of the Code of Federal Regulations Patient History Date of Service: 02/26/24 Reason for admission: abdominal pain History of Present Illness: Patient is a 74-year-old male who is presenting to the ER complaining of abdominal pain. He has a history of recurrent pancreatitis. He is now reporting a left upper quadrant abdominal pain ongoing for the past 24 hours. Associated symptoms include nausea. CT abdomen and pelvis in the ER revealed evidence of pancreatitis with a lipase of ~1900. During my evaluation, patient was hemodynamically stable. He endorses partial symptomatic improvement. Allergies ATROVENT/ALBUTEROL Allergy (Uncoded 09/23/23 08:47) tachycardia limestone Allergy (Uncoded 09/23/23 08:47) Itching/Hives/Rash Home Medications: Amiodarone HCl [Cordarone*] 200 mg PO BID #60 tab 06/17/22 Bupropion *Xl* [Wellbutrin XL*] 150 mg PO DAILY 30 Days #30 tab 03/18/23 Alfuzosin HCl 10 mg PO DAILY 05/07/23 Potassium Chloride 20 meq PO DAILY 05/07/23 Atorvastatin Calcium [Lipitor] 40 mg PO BEDTIME 30 Days #30 tab 05/11/23 Hydrocodone Bit/Acetaminophen [Arboles 7.5-325 Tablet] 1 tab PO BID 06/24/23 Pregabalin [Lyrica] 25 mg PO BID 06/24/23 Albuterol Sulfate [Albuterol Sulfate 0.083% Neb Soln] 2.5 mg IH Q6HP PRN 09/16/23 Albuterol Sulfate [Proair Respiclick] 2 puff IH PRN PRN 09/16/23 Apixaban [Eliquis *] 2.5 mg PO BID 09/16/23 Benzonatate 200 mg PO TID PRN 09/16/23 Furosemide 20 mg PO DAILY 09/16/23 Levocetirizine Dihydrochloride [Allergy Relief] 5 mg PO BEDTIME 09/16/23 Midodrine HCl [Proamatine*] 5 mg PO BID 09/16/23 Ondansetron [Zofran (Odt)*] 4 mg PO Q6H PRN 09/16/23 Prevagen 1 tab PO DAILY 09/16/23 Zinc Gluconate [Zinc] 50 mg PO DAILY 09/16/23 predniSONE [Deltasone*] 10 mg PO DAILY 09/16/23 Apixaban [Eliquis] 5 mg PO BID 01/19/24 Cefpodoxime Proxetil 100 mg PO BID 7 Days #14 tab 01/19/24 Levofloxacin [Levaquin] 500 mg PO BID 7 Days #14 tab 01/19/24 - Past Medical/Surgical History Diabetic: Yes -: Diabetes mellitus type [id number] -: Asthma -: Arthritis -: COPD on home O2 -: Hx PASTOR (Dr. Sousa/ Dr. Stubbs) -: HLD -: Depression -: Atrial fibrillation on chronic anticoagulation -: Hypotension on midodrine -: Diastolic CHF/ Moderate TR -: Urinary retention -: Cyst removal from right side of neck Psychosocial/ Personal History: Patient lives at home with his son - Family History Mother -: Heart disease, Diabetes Sister -: Lung disease, Diabetes, Cancer Father -: Lung disease, Cancer - Social History Alcohol use: No CD- Drugs: No Caffeine use: Yes Physical Examination - Physical Exam General: Acute distress HEENT: Atraumatic, Normocephalic Respiratory: Diminished, Expiratory wheezes Cardiovascular: No edema, Normal pulses, Regular rate/rhythm, Normal S1 S2 Gastrointestinal: Distended, Tenderness Neurological: Normal speech Urinary: Jeffers catheter - Studies Laboratory Data (last 24 hrs) 02/26/24 02/26/24 00:37 00:37 WBC 20.30 H Hgb 8.5 L Hct 27.2 L Plt Count 462 H Sodium 135 L Potassium 3.9 BUN 24 H Creatinine 1.39 H Glucose 87 Total Bilirubin 0.4 AST 33 ALT 32 Alkaline Phosphatase 112 Lipase 1912 H Assessment and Plan - Problems (Diagnosis) (1) Acute kidney failure Current Visit: No Status: Acute (2) History of COPD Current Visit: No Status: Acute (3) Afib Current Visit: No Status: Chronic Qualifiers: (4) Congestive heart failure (CHF) Current Visit: No Status: Chronic (5) HLD (hyperlipidemia) Current Visit: No Status: Chronic Qualifiers: (6) HTN (hypertension) Current Visit: No Status: Chronic Qualifiers: (7) T2DM (type 2 diabetes mellitus) Current Visit: No Status: Chronic Qualifiers: (8) Acute pancreatitis Current Visit: Yes Status: Acute - Plan Assessment Patient is a 74 year old male who is being admitted for acute pancreatitis after he presented with LUQ abdominal pain. He has a lipase of ~1900. Patient also has an abnormal UA Acute on chronic pancreatitis UTI - PASTOR HTN Type II diabetes mellitus CHF- grade I diastolic CHF Severe pulmonary HTN Anemia PLAN: Will admit inpatient with telemetry Keep NPO, start IV fluid infusion at 100 cc/hr Extreme caution with IV fluid due to history of CHF and severe pulmonary HTN Will obtain a CXR to establish baseline PPI and anti-emetics Repeat lipase tomorrow Meropenem for possible UTI Follow urine cultures Check iron panel for anemia DVT and GI ppx - Advance Directives Does patient have a Living Will: Yes Does patient have a Durable POA for Healthcare: Yes
[2024-02-26] MEDS ORDERED: NA CHLORIDE 0.9% 500 ML ONE (04:12)
[2024-02-26] MEDS ORDERED: CIPROFLOXACIN 400mg IV 400 MG/200 ML BAG IV ONE (04:12)
[2024-02-26] MEDS ORDERED: METRONIDAZOLE 500mg IVPB 500 MG/100 ML BAG IV ONE (04:13)
[2024-02-26] MEDS: Meropenem 500 MG in NA CHLORIDE 0.9% 100 ML IV SCH (04:41)
[2024-02-26 05:09] LABS: Anisocytosis SLIGHT; Blood Morphology Comment NOTED (NOT SEEN); Differential Total Cells Count 100; Eosinophils 5 % (0-3); Lymphocytes 12 % (15-42); Monocytes 6 % (0-10); Platelet Estimate INCR; Segmented Neutrophils 72 % (40-80)
[2024-02-26 05:30] LABS: Magnesium 1.8 mg/dL (1.6-2.4); Phosphorus 2.8 mg/dL (2.5-4.9)
--- NOTE | 2024-02-26 06:58 | RAD REPORT ---
EXAM: Chest Single View HISTORY: r/o volume overload COMPARISON: 06/23/2023 FINDINGS: LUNGS/PLEURA: Emphysema. No evidence of edema. No consolidative airspace disease. Some mild scarring is present in the lung bases MEDIASTINUM: The mediastinal silhouette is within normal limits. CARDIAC: The cardiac silhouette is within normal limits. UPPER ABDOMEN: No significant abnormality. BONES: No acute abnormality. LINES/TUBES/OTHER: N/A IMPRESSION: Emphysema without evidence of superimposed acute process.
[2024-02-26] MEDS: HEPARIN 5000 UNIT/ML 1 ML VIAL SQ SCH (09:23)
--- NOTE | 2024-02-26 10:33 | P.PN ---
Date of Service: 02/26/24 Subjective: abdominal pain feels more mild compared to prior bout of pancreatitis feeling better this morning overall nausea improving afebrile ROS: 10 point ROS as noted above, otherwise negative Physical Exam: GEN: Alert, oriented, NAD CV: Regular rate and rhythm, no edema Pulm: Nonlabored respirations on room air, clear bilaterally ABD: soft, moderate tenderness to palpation in epigastrium Neuro: Normal speech, normal affect Perez in place Problem List: Acute on chronic pancreatitis Pancreatic pseudocysts Cholelithiasis Severe Iron deficiency anemia PASTOR Chronic diastolic CHF Severe pulmonary HTN Hx of A-fib on chronic anticoagulation Hx of Chronic indwelling Perez catheter for urinary retention NIDDM2 COPD, chronic (on home o2) Hypertension Hyperlipidemia Depression Acute on chronic pancreatitis Pancreatic pseudocysts Cholelithiasis on admission, presents with worsening LUQ abdominal pain associated with nausea. feels this episode to be more mild in comparison to past pancreatitis episodes. reports seeing Dr. Masterson ~1 week ago to evaluate for possible gallbladder removal but opted against surgical intervention. Dr. Masterson, general surgeon consulted. CT abdomen (02/25): Acute pancreatitis with several pseudocysts of the pancreatic tail which are progressive. NEW 4.7cm fluid collection at tip of pancreatic tail Resolution of left pleural effusion with development of trace perihepatic ascites. Also noted: lower lung emphysema, mild perihepatic ascites, cholelithiasis. CXR (02/25): Emphysema without evidence of superimposed acute process Lipase 1912 on admission. LFTs WNL. new cystic structure/fluid collection at pancreatic tail NPO for now. Okay for sips of water/ice chips Continue IV fluids Severe Iron deficiency anemia iron studies consistent with severe iron deficiency anemia (iron 13, tsat% 6.0) no obvious bleeds. Denies black/tarry stools. Daily labs. Hgb 8.5 PASTOR continue to monitor renal function Monitor and replete electrolytes as needed Continue IV fluids Chronic diastolic CHF Severe pulmonary HTN Hx of A-fib on chronic anticoagulation prior echo (01/13/24): 72% EF, grade 1 diastolic dysfunction, mild MR, dilated right ventricle with normal function, severe pulmonary HTN. mild TR confirm home meds, restart as appropriate was on eliquis at home previously need to confirm home meds Hx of Chronic indwelling Perez catheter for urinary retention presents with perez in place POA. Has history of recurrent/frequent UTIs. UA concerning for UTI denies symptoms, has chronic perez; could be colonized follow urine culture Continue empiric merrem (02/25-) NIDDM2 accu-cheks, SSI COPD, chronic (on home o2) Hypertension Hyperlipidemia Depression confirm home meds, restart as appropriate VTE: heparin sq Code: Full Dispo: Home Pending lipase resolves, surgical recs Time Spent Managing Pts Care (In Minutes): 55
[2024-02-27] MEDS: ALBUTEROL 2.5 MG/3 ML NEB SOL NEB SCH (01:40)
[2024-02-27] MEDS: IPRATROPIUM BROM 0.5MG/2.5ML NEB PRN (01:40)
[2024-02-27 05:17] LABS: Absolute Basophils 0.1 K/uL (0-0.5); Absolute Eosinophils 0.9 K/uL (0-0.5); Absolute Lymphocytes (CBC) 2.6 K/uL (0.7-4.9); Absolute Neutrophil 11.9 K/uL (1.8-8.0); Basophils % 0.7 % (0-1.3); Eosinophils % 5.4 % (0-4.4); Hematocrit 25.2 % (39.6-49.0); Hemoglobin 7.9 g/dL (13.6-17.9); Lymphocytes % 15.7 % (15.3-44.8); MCH 23.6 pg (27.0-35.0); MCHC 31.5 g/dL (32.0-36.0); MPV 6.6 fL (7.6-11.3); Monocytes % 6.1 % (3.3-12.3); Neutrophils % 72.1 % (41.7-73.7); Platelets 496 thou/uL (152-406); RBC Red Blood Cell Count 3.36 M/uL (4.33-5.43); Red Cell Distribution Width 18.6 % (12.1-15.2)
[2024-02-27 05:31] LABS: Albumin 1.7 g/dL (3.4-5.0); Albumin/Globulin Ratio 0.5 (1.1-1.8); Anion Gap 10.6 mEq/L (5.0-15.0); Bilirubin Total 0.4 mg/dL (0.2-1.0); Globulin 3.4 g/dL (2.3-3.5); Magnesium 1.9 mg/dL (1.6-2.4); Phosphorus 2.9 mg/dL (2.5-4.9); Potassium 3.6 mEq/L (3.5-5.1); Protein, Total 5.1 g/dL (6.4-8.2)
[2024-02-27 07:11] VITALS: BMI 21.4
[2024-02-27] MEDS: Meropenem 1,000 MG in NA CHLORIDE 0.9% 100 ML IV SCH (09:04)
[2024-02-27] MEDS: POTASSIUM CL SA 10 MEQ TAB PO ONE (09:04)
--- NOTE | 2024-02-27 11:23 | P.PN ---
Date of Service: 02/27/24 Subjective: reports some mild abdominal pains today , no worsening urine light yellow no events overnight nausea improved afebrile ROS: 10 point ROS as noted above, otherwise negative Physical Exam: GEN: Alert, oriented, NAD CV: Regular rate and rhythm, no edema Pulm: Nonlabored respirations on room air, clear bilaterally ABD: soft, moderate tenderness to palpation in epigastrium Neuro: Normal speech, normal affect Perez in place Problem List: Acute on chronic pancreatitis Pancreatic pseudocysts Cholelithiasis Severe Iron deficiency anemia PASTOR Chronic diastolic CHF Severe pulmonary HTN Hx of A-fib on chronic anticoagulation Hx of Chronic indwelling Perez catheter for urinary retention NIDDM2 COPD, chronic (on home o2) Hypertension Hyperlipidemia Depression Acute on chronic pancreatitis Pancreatic pseudocysts Cholelithiasis on admission, presents with worsening LUQ abdominal pain associated with nausea. feels this episode to be more mild in comparison to past pancreatitis episodes. reports seeing Dr. Masterson ~1 week ago to evaluate for possible gallbladder removal but opted against surgical intervention. Dr. Masterson, general surgeon consulted. CT abdomen (02/25): Acute pancreatitis with several pseudocysts of the pancreatic tail which are progressive. NEW 4.7cm fluid collection at tip of pancreatic tail Resolution of left pleural effusion with development of trace perihepatic ascites. Also noted: lower lung emphysema, mild perihepatic ascites, cholelithiasis. CXR (02/25): Emphysema without evidence of superimposed acute process Lipase 1912 on admission. LFTs WNL. new cystic structure/fluid collection at pancreatic tail NPO for now. Okay for sips of water/ice chips Continue IV fluids Lipase slightly worse; leukocytosis improving (02/26) Severe Iron deficiency anemia iron studies consistent with severe iron deficiency anemia (iron 13, tsat% 6.0) no obvious bleeds. Denies black/tarry stools. Daily labs. PASTOR continue to monitor renal function Monitor and replete electrolytes as needed Continue IV fluids Chronic diastolic CHF Severe pulmonary HTN Hx of A-fib on chronic anticoagulation prior echo (01/13/24): 72% EF, grade 1 diastolic dysfunction, mild MR, dilated right ventricle with normal function, severe pulmonary HTN. mild TR confirm home meds, restart as appropriate was on eliquis at home previously need to confirm home meds Hx of Chronic indwelling Perez catheter for urinary retention presents with perez in place POA. Has history of recurrent/frequent UTIs. UA concerning for UTI denies symptoms, has chronic perez; could be colonized urine cx (02/24): 4+ GNR, 4+ non-beta hemolytic strep Continue empiric merrem (02/25-) NIDDM2 accu-cheks, SSI COPD, chronic (on home o2) Hypertension Hyperlipidemia Depression confirm home meds, restart as appropriate VTE: heparin sq Code: Full Dispo: Home, ~2-3 days Pending lipase resolves, surgical recs Time Spent Managing Pts Care (In Minutes): 55
[2024-02-28 04:32] LABS: Absolute Basophils 0.1 K/uL (0-0.5); Absolute Eosinophils 1.3 K/uL (0-0.5); Absolute Lymphocytes (CBC) 3.1 K/uL (0.7-4.9); Absolute Monocytes 1.1 K/uL (0.1-1.3); Absolute Neutrophil 9.6 K/uL (1.8-8.0); Basophils % 0.7 % (0-1.3); Eosinophils % 8.4 % (0-4.4); Hematocrit 27.5 % (39.6-49.0); Hemoglobin 8.7 g/dL (13.6-17.9); Lymphocytes % 20.3 % (15.3-44.8); MCH 23.5 pg (27.0-35.0); MCHC 31.5 g/dL (32.0-36.0); MCV 74.7 fL (80-100); MPV 6.2 fL (7.6-11.3); Neutrophils % 63.6 % (41.7-73.7); Platelets 543 thou/uL (152-406); RBC Red Blood Cell Count 3.68 M/uL (4.33-5.43); Red Cell Distribution Width 18.3 % (12.1-15.2)
[2024-02-28 04:57] LABS: Albumin 1.8 g/dL (3.4-5.0); Albumin/Globulin Ratio 0.5 (1.1-1.8); Anion Gap 9.3 mEq/L (5.0-15.0); Bilirubin Total 0.4 mg/dL (0.2-1.0); Globulin 3.4 g/dL (2.3-3.5); Potassium 4.3 mEq/L (3.5-5.1); Protein, Total 5.2 g/dL (6.4-8.2)
[2024-02-28] MEDS: D5 0.45 NS 1,000 ML IV SCH (09:06)
[2024-02-28] MEDS: DIPHENHYDRAMINE 25 MG TAB/CAP PO PRN (09:33)
--- NOTE | 2024-02-28 09:41 | P.PN ---
Date of Service: 02/28/24 Subjective: reports feeling burning sensation, itchyness all over - typical for him at home otherwise doing okay reports minimal abd pain, no nausea tolerating clear liquids without issues feeling better ROS: 10 point ROS as noted above, otherwise negative Physical Exam: GEN: Alert, oriented, itchy CV: Regular rate and rhythm, no edema Pulm: Nonlabored respirations on room air, clear bilaterally ABD: soft, mild tenderness to palpation in epigastrium Neuro: Normal speech, normal affect Perez in place Problem List: Acute on chronic pancreatitis Pancreatic pseudocysts Cholelithiasis Hx of Recurrent UTIs Hx of Chronic indwelling Perez catheter for urinary retention pruritus; acute on chronic Severe Iron deficiency anemia PASTOR, resolved Chronic diastolic CHF Severe pulmonary HTN Hx of A-fib on chronic anticoagulation NIDDM2 COPD, chronic (on home o2) Hypertension Hyperlipidemia Depression Acute on chronic pancreatitis Pancreatic pseudocysts Cholelithiasis on admission, presents with worsening LUQ abdominal pain associated with nausea. feels this episode to be more mild in comparison to past pancreatitis episodes. reports seeing Dr. Masterson ~1 week ago to evaluate for possible gallbladder removal but opted against surgical intervention. Dr. Masterson, general surgeon consulted. recommended f/u with pancreatitis specialist [place] CT abdomen (02/25): Acute pancreatitis with several pseudocysts of the pancreatic tail which are progressive. NEW 4.7cm fluid collection at tip of pancreatic tail Resolution of left pleural effusion with development of trace perihepatic ascites. Also noted: lower lung emphysema, mild perihepatic ascites, cholelithiasis. CXR (02/25): Emphysema without evidence of superimposed acute process new cystic structure/fluid collection at pancreatic tail lipase significantly improved 2592 -> 349 (02/27) advance to full liquids for lunch DC IVF 02/27 Hx of Recurrent UTIs Hx of Chronic indwelling Perez catheter for urinary retention presents with perez in place POA. Has history of recurrent/frequent UTIs. Continue empiric merrem (02/25-) urine cx (02/24): MDR E.coli, Enterococcus Faecalis denies symptoms, has chronic perez Possible colonization, difficult to r/o ID consulted pruritus; acute on chronic Unclear Etiology. reports feeling burning sensation, itchyness all over Reports similar itchyness to what he deals with at home intermittently. Calamine topical added 02/27 PO benadryl PRN Severe Iron deficiency anemia iron studies consistent with severe iron deficiency anemia (iron 13, tsat% 6.0) no obvious bleeds. Denies black/tarry stools. Daily labs. PASTOR, resolved continue to monitor renal function Monitor and replete electrolytes as needed DC IVF 02/27 Chronic diastolic CHF Severe pulmonary HTN Hx of A-fib on chronic anticoagulation prior echo (01/13/24): 72% EF, grade 1 diastolic dysfunction, mild MR, dilated right ventricle with normal function, severe pulmonary HTN. mild TR confirm home meds, restart as appropriate was on eliquis at home previously need to confirm home meds NIDDM2 accu-cheks, SSI COPD, chronic (on home o2) Hypertension Hyperlipidemia Depression confirm home meds, restart as appropriate VTE: heparin sq Code: Full Dispo: Home, ~2 days Pending lipase resolves, ID recs Time Spent Managing Pts Care (In Minutes): 55
[2024-02-28] MEDS: CALAMINE LOTION 180ML TOP SCH (10:00)
--- NOTE | 2024-02-28 16:17 | CON ---
History Of Present Illness: The patient is a 74-year-old male coming in with abdominal pain and also found to have recurrent pancreatitis. I was consulted for urinary tract infection with E coli, Ente rococcus faecalis. Patient is currently getting meropenem. Past Medical History: As per HPI. Social History: Nondrinker, nondrinker. Family History: Noncontributory. Medications: Meropenem. See MARs for other medications. Allergies: ATROVENT. ALBUTEROL. LIMESTONE. Review of Systems: A 10-point review was performed. Physical Examination: General: This is a 74-year-old male, lying in bed, not in any acute cardiopulmonary distress. Vital Signs: Temperature 98, pulse 64, respiration 18, blood pressure 163/71. HEENT: Unremarkable. Neck: Supple. Lungs: Clear to auscultation. Heart: S1, S2. Regular. Abdomen: Soft. Bowel sounds present, obese. Extremity: Trace edema. Laboratory Data: Shows WBC 15.1, hemoglobin 8.7, platelets are 543. Chemistry shows BUN of 16, crea tinine 0.9, albumin level is 1.2. Urinalysis shows wbc more than 50, rbc's 5-10. Urine cultures are showing E coli and Enterococcus faecalis with limited sensitivity on E. coli with sensitivity to brant openem, cefepime, Zosyn, tobramycin, and nitrofurantoin. Enterococcus sensitivity to nitrofurantoin, penicillin, and ampicillin. Assessment And Plan: Urosepsis in the patient, a 74-year-old male who initially came with pancreatit is which has improved significantly. Recommend to add Zyvox to current regimen with meropenem for to mj of 7 days. Leukocytosis with minimal improvement 15,000. Anemia of chronic disease, thrombocyto sis, severe protein calorie malnourishment. Continue current treatment. We will follow the patient closely. Thank you for consult. NF/MODL Voice ID: [id number] Report ID: [id number]
[2024-02-28] MEDS: IPRATROPIUM BROM 0.5MG/2.5ML NEB PRN (20:50)
[2024-02-28] MEDS: ALBUTEROL 2.5 MG/3 ML NEB SOL NEB PRN (20:50)
[2024-02-28] MEDS: PREGABALIN 25 MG CAPSULE PO SCH (22:00)
[2024-02-28] MEDS: Oxycodone HCl/Acetaminophen 5/325 MG TAB PO PRN (22:18)
--- NOTE | 2024-02-28 22:44 | CON ---
Date of Consultation: 02/28/2024 Diagnosis: Acute pancreatitis. Indications: This is a case of a 74-year-old patient known by the surgical service and medical servi wilner due to recurrent pancreatitis. We had been able to pinpoint cause of his pancreatitis. Last time , even though we saw gallstones, we did not see any stones in the common bile duct and the MRCP was n egative. We noticed the patient to have multiple cysts on the tail of the pancreas. The patient was sent home with the condition that he follow up as an outpatient. He comes here once again with the same pain, this time lipase in 1900 and found to have enlargement of the pancreatic cyst. We discuss ed with him in the past the need to see pancreatic doctors in [place]. He feels better today almost with no pain at all. He does not remember what he ate to cause this situation. Allergies: ATROVENT, LIMESTONE. Medications: Include Wellbutrin, Lipitor, albuterol, ProAir, Zofran, zinc, Deltasone, Eliquis, Levaq uin. Medical History: Includes COPD; acute kidney disease; depression; asthma; arthritis; atrial fibrilla tion, on chronic anticoagulation; congestive heart failure; history of urinary retention. Past Surgical History: Include a cyst removed from the neck. Family History: Includes diabetes and lung disease. He mentioned cancer, but he does not recall [facility] kind of cancer. Social History: He does not smoke. He does not drink alcohol. Physical Examination: Vital Signs: Reviewed. General: Patient is awake, alert, not in any pain at this moment. He says he feels a lot better. H e is even hungry. He is tolerating diet, at least clears. HEENT: Pupils are equal and reactive. Anicteric. Neck: Supple. Chest: Clear. Heart: S1, S2. Abdomen: Mild epigastric tenderness. No guarding or rebound. No Claire signs. Extremities: Good capillary refill. Rectal: Deferred. Laboratory Data: Blood work shows WBC count of 15, hemoglobin of 8.7, platelets of 543. Chemistry s hows glucose of 132, creatinine is 0.96, bicarb 24, calcium of 8.0, bilirubin of 0.4, alkaline phosph ate 108. Lipase 349, but initially was in the 1900. Triglycerides 74, normal cholesterol 70. CAT s can of the abdomen and pelvis interpreted by Dr. Vidal as continued findings of acute appendicitis with pseudocyst of the pancreatic tail which are progressive, small left pleural effusion. There is mild inflammation of the surrounding pancreatic cyst, replacement of the tail 2.7 x 2.1 cm. There is a s econd collection at the tip of the pancreas about 4.7 cm. Assessment: This is a 74-year-old patient with acute pancreatitis of unknown origin. He is feeling better. He is tolerating diet. If we improve his pancreatitis and he goes home, we advised him once again the importance of following up with the pancreatic surgeon in [place] who can help him with th e options to see if his cyst needs to be removed or drain or sample as a biopsy. SOFÍA/RIZWAN Voice ID: [id number] Report ID: [id number]
[2024-02-29 04:55] LABS: Absolute Basophils 0.2 K/uL (0-0.5); Absolute Eosinophils 1.5 K/uL (0-0.5); Absolute Lymphocytes (CBC) 3.7 K/uL (0.7-4.9); Absolute Monocytes 1.1 K/uL (0.1-1.3); Absolute Neutrophil 8.2 K/uL (1.8-8.0); Basophils % 1.1 % (0-1.3); Eosinophils % 10.4 % (0-4.4); Hematocrit 30.2 % (39.6-49.0); Hemoglobin 9.7 g/dL (13.6-17.9); Lymphocytes % 25.3 % (15.3-44.8); MCH 24.1 pg (27.0-35.0); MCHC 32.2 g/dL (32.0-36.0); MCV 74.8 fL (80-100); MPV 6.3 fL (7.6-11.3); Monocytes % 7.3 % (3.3-12.3); Neutrophils % 55.9 % (41.7-73.7); Platelets 536 thou/uL (152-406); RBC Red Blood Cell Count 4.04 M/uL (4.33-5.43); Red Cell Distribution Width 18.4 % (12.1-15.2)
[2024-02-29 05:24] LABS: Albumin 1.9 g/dL (3.4-5.0); Albumin/Globulin Ratio 0.5 (1.1-1.8); Anion Gap 8.6 mEq/L (5.0-15.0); Bilirubin Total 0.4 mg/dL (0.2-1.0); Magnesium 1.9 mg/dL (1.6-2.4); Potassium 3.6 mEq/L (3.5-5.1); Protein, Total 5.9 g/dL (6.4-8.2)
[2024-02-29] MEDS: POTASSIUM CL SA 10 MEQ TAB PO ONE (08:32)
[2024-02-29] MEDS ORDERED: PREGABALIN 25 MG CAPSULE PO SCH (09:00)
--- NOTE | 2024-02-29 16:23 | P.PN ---
Subjective Date of Service: 02/29/24 Chief Complaint: abdominal pain Patient is complaining of itching. He denies any abdominal pain. He denies any nausea or vomiting. He has been tolerating full liquid diet. Physical Examination - Vital Signs Temperature: 97.6 F Blood Pressure: 121/55 Pulse: 64 Respirations: 16 Pulse Ox (%): 95 - Studies Microbiology Data (last 24 hrs): 02/26/24 00:59 Catheterized Urine [place] Count - Final >100,000 CFU/ML. 02/26/24 00:59 Catheterized Urine - Final Escherichia Coli Enterococcus Faecalis Assessment And Plan - Plan Physical Exam: GEN: Alert, oriented, NAD. CV: Regular rate and rhythm, no edema Pulm: Nonlabored, clear to auscultation bilaterally, no wheezes. ABD: soft, rotund abdomen, no tenderness. Neuro: Normal speech, normal affect, no focal motor deficit Urogenital: Perez in place Problem List: Acute on chronic pancreatitis Pancreatic pseudocysts Cholelithiasis Hx of Recurrent UTIs Hx of Chronic indwelling Perez catheter for urinary retention pruritus; acute on chronic Severe Iron deficiency anemia PASTOR, resolved Chronic diastolic CHF Severe pulmonary HTN Hx of A-fib on chronic anticoagulation NIDDM2 COPD, chronic (on home o2) Hypertension Hyperlipidemia Depression Plan: Acute on chronic pancreatitis Pancreatic pseudocysts Cholelithiasis CT abdomen (02/25): Acute pancreatitis with several pseudocysts of the pancreatic tail which are progressive. NEW 4.7cm fluid collection at tip of pancreatic tail. Also noted cholelithiasis. Dr. Masterson, general surgeon evaluated patient and recommended referral to GI/pancreatitis specialist [place] as outpatient lipase significantly improved 2592 -> 333 (02/28) Patient has been tolerating full liquid diet. Symptoms resolved. Advance diet as tolerated IV fluid discontinued Hx of Recurrent UTIs secondary to Chronic indwelling Perez catheter Hx of urinary retention presents with perez in place POA. Has history of recurrent/frequent UTIs. urine cx (02/24): MDR E.coli, Enterococcus Faecalis Continue empiric merrem (02/25-) Patient is asymptomatic ID consulted. Organisms is possibly colonization. Pruritus Thrombocytosis Iron deficiency anemia Unclear Etiology. 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 Keep skin moist/oriented with petroleum jelly/vaseline PO benadryl PRN. Oral Iron therapy. PASTOR Resolved with IV hydration continue to monitor renal function Monitor and replete electrolytes as needed IV fluid discontinued. Chronic diastolic CHF Severe pulmonary HTN Hx of A-fib on chronic anticoagulation prior echo (01/13/24): 72% EF, grade 1 diastolic dysfunction, mild MR, dilated right ventricle with normal function, severe pulmonary HTN. mild TR CHF is stable, patient appears compensated. Eliquis resumed. Monitor CBC to follow hemoglobin. need to confirm home meds NIDDM2 accu-cheks, SSI COPD, chronic (on home o2) Hypertension Hyperlipidemia Depression Continue home medications VTE: Eliquis Code: Full Dispo: Home,.
[2024-02-29] MEDS: ATORVASTATIN 40 MG TAB PO SCH (20:06)
[2024-02-29] MEDS: HYDROCODONE/APAP 7.5/325 MG TAB PO SCH (20:06)
[2024-02-29] MEDS: APIXABAN 2.5 MG TABLET PO SCH (20:07)
[2024-02-29] MEDS ORDERED: HOME MED 1 EA UNK (Levocetirizine Dihydrochloride [Allergy Relief] 5 MG Tablet) PO SCH (21:00)
[2024-03-01 04:52] LABS: Anion Gap 8.2 mEq/L (5.0-15.0); Potassium 4.2 mEq/L (3.5-5.1)
[2024-03-01] MEDS: FUROSEMIDE 20 MG TABLET PO SCH (08:45)
[2024-03-01] MEDS: CETIRIZINE HCL 5 MG TABLET PO SCH (08:45)
[2024-03-01] MEDS: ZINC SULFATE 220 MG CAP PO SCH (08:46)
[2024-03-01] MEDS: predniSONE 10 MG TAB PO SCH (08:47)
[2024-03-01] MEDS: BUPROPION HCL XL 150 MG TAB PO SCH (08:47)
--- NOTE | 2024-03-01 18:20 | P.PN ---
Subjective Date of Service: 03/01/24 Chief Complaint: abdominal pain Patient has no new complaint. He has been tolerating solid diet however his lipase level trended up He denies any abdominal pain. He denies any nausea or vomiting. He reports significant improvement in his body itch since he started using petroleum jelly. Physical Examination - Vital Signs Temperature: 97.8 F Blood Pressure: 131/62 Pulse: 65 Respirations: 18 Pulse Ox (%): 96 Assessment And Plan - Plan Physical Exam: GEN: Alert, oriented, NAD. CV: Regular rate and rhythm, no edema Pulm: Nonlabored, clear to auscultation bilaterally, no wheezes. ABD: soft, rotund abdomen, no tenderness. Neuro: Normal speech, normal affect, no focal motor deficit Urogenital: Perez in place Problem List: Acute on chronic pancreatitis Pancreatic pseudocysts Cholelithiasis Hx of Recurrent UTIs Hx of Chronic indwelling Perez catheter for urinary retention pruritus; acute on chronic Severe Iron deficiency anemia PASTOR, resolved Chronic diastolic CHF Severe pulmonary HTN Hx of A-fib on chronic anticoagulation NIDDM2 COPD, chronic (on home o2) Hypertension Hyperlipidemia Depression Plan: Acute on chronic pancreatitis Pancreatic pseudocysts Cholelithiasis CT abdomen (02/25): Acute pancreatitis with several pseudocysts of the pancreatic tail which are progressive. NEW 4.7cm fluid collection at tip of pancreatic tail. Also noted cholelithiasis. Dr. Masterson, general surgeon evaluated patient and recommended referral to GI/pancreatitis specialist [place] as outpatient lipase significantly improved 2592 -> 333 and trended up again from yesterday. Scaled back diet to clear liquid diet. Patient is asymptomatic Monitor lipase levels Hx of Recurrent UTIs secondary to Chronic indwelling Perez catheter Hx of urinary retention presents with perez in place POA. Has history of recurrent/frequent UTIs. urine cx (02/24): MDR E.coli, Enterococcus Faecalis Continue empiric merrem (02/25-) Patient is asymptomatic ID consulted. Organisms is possibly colonization. Pruritus Thrombocytosis Iron deficiency anemia Unclear Etiology. 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 Also noted increase eosinophil differential. Patient informed to follow-up with hematology oncology as outpatient for further evaluation. Petroleum jelly/vaseline for dry skin PO benadryl PRN. Oral Iron therapy. PASTOR Resolved with IV hydration continue to monitor renal function Monitor and replete electrolytes as needed Chronic diastolic CHF Severe pulmonary HTN Hx of A-fib on chronic anticoagulation prior echo (01/13/24): 72% EF, grade 1 diastolic dysfunction, mild MR, dilated right ventricle with normal function, severe pulmonary HTN. mild TR CHF is stable, patient appears compensated. Continue Eliquis. Monitor CBC to follow hemoglobin. NIDDM2 accu-cheks, SSI COPD, chronic (on home o2) Hypertension Hyperlipidemia Depression Continue home medications VTE: Eliquis Code: Full Dispo: Home,.
[2024-03-01] MEDS: AMIODARONE HCL 200 MG TAB PO SCH (21:28)
[2024-03-02 04:24] LABS: Absolute Basophils 0.1 K/uL (0-0.5); Absolute Eosinophils 1.3 K/uL (0-0.5); Absolute Lymphocytes (CBC) 3.3 K/uL (0.7-4.9); Absolute Monocytes 1.3 K/uL (0.1-1.3); Absolute Neutrophil 8.9 K/uL (1.8-8.0); Basophils % 0.9 % (0-1.3); Eosinophils % 8.6 % (0-4.4); Hematocrit 26.6 % (39.6-49.0); Hemoglobin 8.4 g/dL (13.6-17.9); Lymphocytes % 22.2 % (15.3-44.8); MCH 23.2 pg (27.0-35.0); MCHC 31.6 g/dL (32.0-36.0); MCV 73.5 fL (80-100); MPV 6.6 fL (7.6-11.3); Monocytes % 8.6 % (3.3-12.3); Neutrophils % 59.7 % (41.7-73.7); Platelets 471 thou/uL (152-406); RBC Red Blood Cell Count 3.62 M/uL (4.33-5.43); Red Cell Distribution Width 18.6 % (12.1-15.2)
[2024-03-02] MEDS: TAMSULOSIN 0.4 MG SR CAP PO SCH (09:38)
--- NOTE | 2024-03-02 15:14 | PN ---
Subjective: The patient lying in bed. Denies any headache, nausea, vomiting, chest pain, abdominal pain, constipation, or diarrhea. Objective: Vital Signs: Temperature 98, pulse 83, respirations 16, blood pressure 109/49. Lungs: Basal crackles. Heart: S1, S2. Regular. Abdomen: Soft, nontender. Bowel sounds present. Extremities: No edema. Laboratory Data: Shows WBC down to 15,000, hemoglobin 8.4, platelets 471. Chemistry shows BUN of 15 , creatinine 1.1. Micro data: Urine cultures growing E coli and Enterococcus faecalis. The patient is currently on meropenem. Assessment And Plan: Urosepsis, leukocytosis, anemia of chronic disease, thrombocytosis, severe prot ein-calorie malnourishment. Consider starting patient on Zyvox. Continue meropenem. We will follow the patient as needed. NF/MODL Voice ID: [id number] Report ID: [id number]
--- NOTE | 2024-03-02 16:52 | P.PN ---
Subjective Date of Service: 03/02/24 Chief Complaint: abdominal pain Patient has no complaint. He is tolerating diet Lipase level trended down from yesterday. He reports intermittent body itch. Physical Examination - Vital Signs Temperature: 98.1 F Blood Pressure: 109/49 Pulse: 83 Respirations: 16 Pulse Ox (%): 91 Assessment And Plan - Plan Physical Exam: GEN: Alert, oriented, NAD. CV: Regular rate and rhythm, no edema Pulm: Nonlabored, clear to auscultation bilaterally, no wheezes. ABD: soft, rotund abdomen, no tenderness. Neuro: Normal speech, normal affect, no focal motor deficit Urogenital: Perez in place Problem List: Acute on chronic pancreatitis Pancreatic pseudocysts Cholelithiasis Hx of Recurrent UTIs Hx of Chronic indwelling Perez catheter for urinary retention pruritus; acute on chronic Severe Iron deficiency anemia PASTOR, resolved Chronic diastolic CHF Severe pulmonary HTN Hx of A-fib on chronic anticoagulation NIDDM2 COPD, chronic (on home o2) Hypertension Hyperlipidemia Depression Plan: Acute on chronic pancreatitis Pancreatic pseudocysts Cholelithiasis CT abdomen (02/25): Acute pancreatitis with several pseudocysts of the pancreatic tail which are progressive. NEW 4.7cm fluid collection at tip of pancreatic tail. Also noted cholelithiasis. Dr. Masterson, general surgeon evaluated patient and recommended referral to GI/pancreatitis specialist [place] as outpatient lipase significantly improved 2592 -> 333 and trended up again to 1086 on 03/01, down to 940 today. Advance to full liquid. Monitor lipase. Patient is asymptomatic and planning to DC if lipase level continues to trend down. Recommended follow-up with pancreatologist Dr. Hernan Maldonado at [facility]. Hx of Recurrent UTIs secondary to Chronic indwelling Perez catheter Hx of urinary retention presents with perez in place POA. Has history of recurrent/frequent UTIs. urine cx (02/24): MDR E.coli, Enterococcus Faecalis Continue empiric merrem (02/25-) Patient is asymptomatic ID Dr. Estes input appreciated. Pruritus Thrombocytosis Iron deficiency anemia Unclear Etiology. 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 Also noted increase eosinophil differential. Patient informed to follow-up with hematology oncology as outpatient for further evaluation. Petroleum jelly/vaseline for dry skin PO benadryl PRN. Oral Iron therapy. PASTOR Resolved with IV hydration continue to monitor renal function Monitor and replete electrolytes as needed Chronic diastolic CHF Severe pulmonary HTN Hx of A-fib on chronic anticoagulation prior echo (01/13/24): 72% EF, grade 1 diastolic dysfunction, mild MR, dilated right ventricle with normal function, severe pulmonary HTN. mild TR CHF is stable, patient appears compensated. Continue Eliquis. Monitor CBC to follow hemoglobin. NIDDM2 accu-cheks, SSI COPD, chronic (on home o2) Hypertension Hyperlipidemia Depression Continue home medications VTE: Eliquis Code: Full Dispo: Home,.
[2024-03-03 06:56] LABS: Albumin/Globulin Ratio 0.6 (1.1-1.8); Anion Gap 7.1 mEq/L (5.0-15.0); Bilirubin Total 0.3 mg/dL (0.2-1.0); Globulin 3.4 g/dL (2.3-3.5); Potassium 4.1 mEq/L (3.5-5.1); Protein, Total 5.4 g/dL (6.4-8.2)
--- NOTE | 2024-03-03 16:09 | RAD REPORT ---
EXAMINATION: CT ABDOMEN AND PELVIS WITH CONTRAST CLINICAL INDICATION: Abdominal pain TECHNIQUE: CT abdomen and pelvis was performed, after the administration of 100 cc Isovue-300.. Sagit mj and coronal reconstructions were obtained. One or more of the following dose reduction techniques were used: Automated exposure control, adjustment of the mA and kV according to patient si ze, and iterative reconstruction. Unless otherwise specified, incidental findings do not require dedicated imaging follow-up. [id number]. Oral contrast was not given which limits evaluation of bowel and appendix. COMPARISON: .February 26, 2024 FINDINGS: Cholelithiasis. Liver, adrenals and kidneys unremarkable 4 cm low-density structure adjacent to the medial aspect of the spleen slightly diminished in size ad ditional cystic structures pancreatic tail without significant change. Stable dilatation of the pancreatic duct. Mild stranding adjacent to the pancreas. Jeffers catheter within the bladder. Marked bladder wall thickening without significant change. No evidence of diverticulitis. : IMPRESSION: Several pancreatic pseudocysts. The largest lies medial to the spleen measuring 4 cm and is mildly di minished in size. The inflammatory changes surrounding the pancreas are minimally improved.
--- NOTE | 2024-03-03 16:57 | P.PN ---
Subjective Date of Service: 03/03/24 Chief Complaint: abdominal pain Patient denies any new complaint He is tolerating diet Lipase level tend fluctuate He reports intermittent body itch. Physical Examination - Vital Signs Temperature: 97.5 F Blood Pressure: 113/53 Pulse: 64 Respirations: 18 Pulse Ox (%): 96 Assessment And Plan - Plan Physical Exam: GEN: Alert, oriented, NAD. CV: Regular rate and rhythm, no edema Pulm: Nonlabored breathing, clear to auscultation bilaterally, no wheezes. ABD: soft, rotund abdomen, no tenderness. Neuro: Normal speech, normal affect, no focal motor deficit Urogenital: Perez in place Skin: Dry skin. Problem List: Acute on chronic pancreatitis Pancreatic pseudocysts Cholelithiasis Hx of Recurrent UTIs Hx of Chronic indwelling Perez catheter for urinary retention pruritus; acute on chronic Severe Iron deficiency anemia PASTOR, resolved Chronic diastolic CHF Severe pulmonary HTN Hx of A-fib on chronic anticoagulation NIDDM2 COPD, chronic (on home o2) Hypertension Hyperlipidemia Depression Plan: Acute on chronic pancreatitis Pancreatic pseudocysts Cholelithiasis CT abdomen (02/25): Acute pancreatitis with several pseudocysts of the pancreatic tail which are progressive. NEW 4.7cm fluid collection at tip of pancreatic tail. Also noted cholelithiasis. Repeat CT abdomen 03/03: Several pseudocyst. The inflammatory changes surrounding the pancreas are minimally improved Dr. Masterson, general surgeon evaluated patient and recommended referral to GI/pancreatitis specialist [place] as outpatient lipase level fluctuating. Case discussed with GI Dr. Beckwith, fluctuating lipase level likely related to the pancreatic pseudocyst which can cause elevated lipase and asymptomatic patients. Patient is currently asymptomatic, not septic, denies abdominal pain and tolerating diet. Advance as tolerated Recommended follow-up with pancreatologist Dr. Hernan Maldonado at [facility]. Hx of Recurrent UTIs secondary to Chronic indwelling Perez catheter Hx of urinary retention presents with perez in place POA. Has history of recurrent/frequent UTIs. urine cx (02/24): MDR E.coli, Enterococcus Faecalis Continue empiric merrem (02/25-) Infectious disease input appreciated. Zyvox added. Patient to complete 7 days of IV Merrem and oral Zyvox. IV meropenem day 6. Patient will complete meropenem tomorrow. Patient is asymptomatic Pruritus Thrombocytosis Iron deficiency anemia Unclear Etiology. 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 Also noted increase eosinophil differential. Patient informed to follow-up with hematology oncology as outpatient for further evaluation. Petroleum jelly/vaseline for dry skin PO benadryl PRN. Oral Iron therapy. PASTOR Resolved with IV hydration continue to monitor renal function Monitor and replete electrolytes as needed Chronic diastolic CHF Severe pulmonary HTN Hx of A-fib on chronic anticoagulation prior echo (01/13/24): 72% EF, grade 1 diastolic dysfunction, mild MR, dilated right ventricle with normal function, severe pulmonary HTN. mild TR CHF is stable, patient appears compensated. Continue Eliquis. Monitor CBC to follow hemoglobin. NIDDM2 accu-cheks, SSI COPD, chronic (on home o2) Hypertension Hyperlipidemia Depression Continue home medications VTE: Eliquis Code: Full Dispo: Home,.
[2024-03-03] MEDS: ENSURE HIGH PROTEIN 237 ML CAN PO SCH (21:00)
[2024-03-03] MEDS: LINEZOLID 600 MG TAB PO SCH (21:24)
[2024-03-04 07:20] LABS: Albumin 2.1 g/dL (3.4-5.0); Albumin/Globulin Ratio 0.6 (1.1-1.8); Anion Gap 5.4 mEq/L (5.0-15.0); Bilirubin Total 0.4 mg/dL (0.2-1.0); Globulin 3.5 g/dL (2.3-3.5); Potassium 4.4 mEq/L (3.5-5.1); Protein, Total 5.6 g/dL (6.4-8.2)
[2024-03-04 08:37] LABS: Absolute Eosinophils 0.5 K/uL (0-0.5); Absolute Monocytes 1.4 K/uL (0.1-1.3); Absolute Neutrophil 11.4 K/uL (1.8-8.0); Basophils % 0.3 % (0-1.3); Hematocrit 28.3 % (39.6-49.0); Hemoglobin 9.1 g/dL (13.6-17.9); Lymphocytes % 22.8 % (15.3-44.8); MCH 23.5 pg (27.0-35.0); MCHC 32.1 g/dL (32.0-36.0); MCV 73.1 fL (80-100); Monocytes % 8.2 % (3.3-12.3); Neutrophils % 65.7 % (41.7-73.7); Nucleated Red Blood Cells % 0.1 % (0-0); Platelets 510 thou/uL (152-406); RBC Red Blood Cell Count 3.87 M/uL (4.33-5.43)
[2024-03-04 09:24] VITALS: O2SAT 92
--- NOTE | 2024-03-04 15:57 | P.DS ---
Admission Date: 02/26/24 Discharge Date: 03/04/24 Disposition: [place] HOME/HOME HEALTH CARE Discharge Condition: FAIR Reason for Admission: abdominal pain Brief History of Present Illness: Patient is a 74-year-old male with a history of recurrent pancreatitis who presented to the ER complaining of abdominal pain. Abdominal pain associated with nausea, no vomiting. CT abdomen and pelvis in the ER revealed evidence of pancreatitis with a lipase of 1900. He has a chronic indwelling Perez catheter. His urinalysis suggested the presence of UTI. Patient was hospitalized for further management. Hospital Course: Diagnosis: Acute on chronic pancreatitis Pancreatic pseudocysts Cholelithiasis Hx of Recurrent UTIs Hx of Chronic indwelling Perez catheter for urinary retention pruritus; acute on chronic Severe Iron deficiency anemia PASTOR, resolved Chronic diastolic CHF Severe pulmonary HTN Hx of A-fib on chronic anticoagulation NIDDM2 COPD, chronic (on home o2) Hypertension Hyperlipidemia Depression Plan: Acute on chronic pancreatitis Pancreatic pseudocysts Cholelithiasis CT abdomen (02/25): Acute pancreatitis with several pseudocysts of the pancreatic tail which are progressive. NEW 4.7cm fluid collection at tip of pancreatic tail. Also noted cholelithiasis. Repeat CT abdomen 03/03: Several pseudocyst. The inflammatory changes surrounding the pancreas are improved Dr. Masterson, general surgeon evaluated patient and recommended referral to GI/pancreatitis specialist [place] as outpatient lipase level fluctuating. Case discussed with GI Dr. Beckwith, fluctuating lipase level likely related to the pancreatic pseudocyst which can cause elevated lipase in asymptomatic patients. Patient is currently asymptomatic, not septic, denies abdominal pain and tolerating diet. Patient tolerated diet advancement. He is asymptomatic and deemed stable for discharge. Recommended follow-up with pancreatologist Dr. Hernan Maldonado at [facility]. Hx of Recurrent UTIs secondary to Chronic indwelling Perez catheter Hx of urinary retention presents with perez in place POA. Has history of recurrent/frequent UTIs. urine cx (02/24): MDR E.coli, Enterococcus Faecalis Continue empiric merrem (02/25-) Infectious disease input appreciated. Zyvox added. Patient to complete 7 days of IV Merrem and oral Zyvox. IV meropenem day 6. Patient will complete meropenem tomorrow. Patient is asymptomatic Pruritus Thrombocytosis Iron deficiency anemia Leukocytosis Unclear Etiology. 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 Also noted increase eosinophil differential. Patient informed to follow-up with hematology oncology as outpatient for further evaluation. Petroleum jelly/vaseline for dry skin PO benadryl PRN. Hemoglobin has been stable PASTOR Resolved with IV hydration Chronic diastolic CHF Severe pulmonary HTN Hx of A-fib on chronic anticoagulation prior echo (01/13/24): 72% EF, grade 1 diastolic dysfunction, mild MR, dilated right ventricle with normal function, severe pulmonary HTN. mild TR CHF is stable, patient appears compensated. Continued Eliquis. Hemoglobin has been stable NIDDM2 Managed with accu-cheks, SSI COPD, chronic (on home o2) Hypertension Hyperlipidemia Depression Continued home medications Vital Signs/Physical Exam: Temp Pulse Resp BP Pulse Ox 97.7 F 70 14 110/45 L 95 03/04/24 12:00 03/04/24 12:00 03/04/24 12:00 03/04/24 12:00 03/04/24 12:00 General: Alert, In no apparent distress, Oriented x3 HEENT: Mucous membr. moist/pink Neck: JVD not distended Respiratory: Clear to auscultation bilaterally, Normal air movement Cardiovascular: No edema, Normal S1 S2, Irregular heart rate/rhythm Gastrointestinal: Soft and benign, Non-distended Musculoskeletal: No swelling Integumentary: No cyanosis, Other (Dry skin.) Neurological: Normal strength at 5/5 x4 extr, Cranial nerves 3-12 intact Laboratory Data at Discharge: WBC 17.40 thou/uL (4.3-10.9) H 03/04/24 06:00 Hgb 9.1 g/dL (13.6-17.9) L 03/04/24 06:00 Hct 28.3 % (39.6-49.0) L 03/04/24 06:00 Plt Count 510 thou/uL (152-406) H 03/04/24 06:00 Sodium 134 mEq/L (136-145) L D 03/04/24 06:00 Potassium 4.4 mEq/L (3.5-5.1) 03/04/24 06:00 BUN 26 mg/dL (7-18) H 03/04/24 06:00 Creatinine 1.22 mg/dL (0.70-1.30) 03/04/24 06:00 Glucose 110 mg/dL (74-106) H 03/04/24 06:00 Phosphorus 2.9 mg/dL (2.5-4.9) 02/27/24 04:50 Magnesium 1.9 mg/dL (1.6-2.4) 02/29/24 04:26 Total Bilirubin 0.4 mg/dL (0.2-1.0) 03/04/24 06:00 AST 216 U/L (15-37) H 03/04/24 06:00 ALT 110 U/L (16-61) H 03/04/24 06:00 Alkaline Phosphatase 267 U/L (45-117) H D 03/04/24 06:00 Triglycerides 74 mg/dL (<150) 02/26/24 04:59 Cholesterol 70 mg/dL (<200) 02/26/24 04:59 HDL Cholesterol 32 mg/dL (40-60) L 02/26/24 04:59 Cholesterol/HDL Ratio 2.19 02/26/24 04:59 Lipase 307 U/L (13-75) H 03/04/24 06:00 Home Medications: Amiodarone HCl [Cordarone*] 200 mg PO BID #60 tab 06/17/22 Bupropion *Xl* [Wellbutrin XL*] 150 mg PO DAILY 30 Days #30 tab 03/18/23 Alfuzosin HCl 10 mg PO DAILY 05/07/23 Atorvastatin Calcium [Lipitor] 40 mg PO BEDTIME 30 Days #30 tab 05/11/23 Hydrocodone Bit/Acetaminophen [Ellinger 7.5-325 Tablet] 1 tab PO BID 06/24/23 Pregabalin [Lyrica] 25 mg PO BID 06/24/23 Apixaban [Eliquis *] 2.5 mg PO BID 09/16/23 Furosemide 20 mg PO DAILY 09/16/23 Levocetirizine Dihydrochloride [Allergy Relief] 5 mg PO BEDTIME 09/16/23 Midodrine HCl [Proamatine*] 5 mg PO BID 09/16/23 Ondansetron [Zofran (Odt)*] 4 mg PO Q6H PRN 09/16/23 Zinc Gluconate [Zinc] 50 mg PO DAILY 09/16/23 predniSONE [Deltasone*] 10 mg PO DAILY 09/16/23 Ensure High Protein 237 ml PO BID #30 can 01/24/25 Linezolid [Zyvox*] 600 mg PO BID #12 tab 03/04/24 Petrolatum,White [Petroleum Jelly] 1 cherie TP BID #368 g 03/04/24 New Medications: Ensure High Protein 237 ml PO BID #30 can Petrolatum,White [Petroleum Jelly] 1 cherie TP BID #368 g Linezolid [Zyvox*] 600 mg PO BID #12 tab Physician Discharge Instructions: Please follow up with pancreatologist(pancreatic specialist) Dr. Hernan Maldonado at [facility] to evaluate your pancreas. Please call and book an appointment. Full liquid diet and progress to solid diet as tolerated. Diet: AHA Activity: Fall precautions Followup: Taylor Muñoz MD [Primary Care Provider] - 1-2 Weeks Time spent managing pt's care (in minutes): 40
[2024-03-04 17:11] VITALS: BP 103/47; TEMP 97.4
== END 2024-03-04 17:48 | disposition home health service (06) | DRG 438 ==
LOC: ER 00:07 → ERHOLD 03:57 → 2ND 06:00
PROVIDERS: ADMIT Internal Medicine; ATTEND Internal Medicine
DX: K85.90 Acute pancreatitis without necrosis or infection, unspecified (principal); E43 Unspecified severe protein-calorie malnutrition; I50.32 Chronic diastolic (congestive) heart failure; T83.518A Infection and inflammatory reaction due to other urinary catheter, initial encounter; N39.0 Urinary tract infection, site not specified; N17.9 Acute kidney failure, unspecified; K86.3 Pseudocyst of pancreas; R18.8 Other ascites; K86.1 Other chronic pancreatitis; I11.0 Hypertensive heart disease with heart failure; E78.5 Hyperlipidemia, unspecified; D50.9 Iron deficiency anemia, unspecified; F32.A Depression, unspecified; J43.9 Emphysema, unspecified; I08.1 Rheumatic disorders of both mitral and tricuspid valves; D75.839 Thrombocytosis, unspecified; I48.91 Unspecified atrial fibrillation; I27.20 Pulmonary hypertension, unspecified; K80.20 Calculus of gallbladder without cholecystitis without obstruction; E11.9 Type 2 diabetes mellitus without complications; B95.2 Enterococcus as the cause of diseases classified elsewhere; B96.20 Unspecified Escherichia coli [E. coli] as the cause of diseases classified elsewhere; Z88.1 Allergy status to other antibiotic agents; Z88.8 Allergy status to other drugs, medicaments and biological substances; Z79.01 Long term (current) use of anticoagulants; Z79.52 Long term (current) use of systemic steroids; Z79.84 Long term (current) use of oral hypoglycemic drugs; Z79.899 Other long term (current) drug therapy; Z68.21 Body mass index [BMI] 21.0-21.9, adult
CPT/HCPCS: 36415; 71045; 74177; 80048; 80053; 80061; 81001; 82728; 82947; 83540; 83605; 83690; 83735; 84100; 84466; 84484; 85025; 87077; 87086; 87088; 87186; 94640; 96365; 96367; 99285; J0744; J1644; J2185; J7030; J7040; J7512; J7613; J7644; J7799; Q9967

== ENCOUNTER 2024-05-01 15:34 | Inpatient (IN) | payer OTHER ==
[2024-05-01] MEDS ORDERED: CEFTRIAXONE 1000 MG/VIAL ONE (15:58)
[2024-05-01] MEDS ORDERED: ACETAMINOPHEN 500 MG TAB ONE (15:59)
[2024-05-01] MEDS ORDERED: NA CHLORIDE 0.9% 1,000 ML ONE ×3 (15:59→17:28)
[2024-05-01] MEDS ORDERED: IBUPROFEN 400 MG TAB ONE (15:59)
[2024-05-01] MEDS ORDERED: NA CHLORIDE 0.9% 100 ML ONE (15:59)
[2024-05-01 16:16] LABS: Absolute Basophils 0.1 K/uL (0-0.5); Absolute Eosinophils 0.1 K/uL (0-0.5); Absolute Lymphocytes (CBC) 1.7 K/uL (0.7-4.9); Absolute Monocytes 0.8 K/uL (0.1-1.3); Absolute Neutrophil 20.8 K/uL (1.8-8.0); Basophils % 0.3 % (0-1.3); Eosinophils % 0.5 % (0-4.4); Hematocrit 35.3 % (39.6-49.0); Lymphocytes % 7.4 % (15.3-44.8); MCH 24.7 pg (27.0-35.0); MCHC 31.3 g/dL (32.0-36.0); MPV 6.5 fL (7.6-11.3); Monocytes % 3.3 % (3.3-12.3); Neutrophils % 88.5 % (41.7-73.7); Platelets 423 thou/uL (152-406); RBC Red Blood Cell Count 4.47 M/uL (4.33-5.43); Red Cell Distribution Width 21.7 % (12.1-15.2)
[2024-05-01 16:24] LABS: Specific Gravity 1.015 (1.005-1.030); Sqamous Epithelial None Seen /HPF (None Seen); Urine Bacteria None Seen /HPF (<20); Urine Bilirubin NEGATIVE (Negative); Urine Blood 1+ (Negative); Urine Clarity Extremely Turbid (Clear); Urine Color Light-Yellow (Yellow); Urine Crystals Unidentified Few /HPF (None Seen); Urine Culture Reflex Order REFLEXED; Urine Glucose NEGATIVE (Negative); Urine Ketones NEGATIVE (Negative); Urine Micro Reflex YN NO BILL MICROSCOPIC; Urine Mucus Slight /HPF (None Seen); Urine Nitrite 1+ (Negative); Urine Protein TRACE (Negative); Urine Urobilinogen Normal (Normal); Urine WBC >50 /HPF (<5); Urine WBC Clump Rare /HPF (None Seen); Urine Yeast (Budding) Trace /HPF (None Seen); Urine pH 5.5 (5.0-7.0)
[2024-05-01 16:26] LABS: PT Prothrombin Time 17.5 SECONDS (10-13.0); PTT, Activated Partial Thromb 32.3 SECONDS (27.2-37.4); Protime INR 1.57
--- NOTE | 2024-05-01 16:35 | RAD REPORT ---
EXAMINATION: ONE VIEW CHEST XR CLINICAL INDICATION: COUGH TECHNIQUE: Frontal chest projection is submitted. Examination is limited by patient positioning and t echnique. COMPARISON: 04/19/2024 FINDINGS: Moderate airspace consolidation in the right lower lung compatible with pneumonia. The lungs are othe rwise emphysematous. The heart is normal in size. No displaced fractures identified. IMPRESSION: Moderate airspace consolidation right lower lung likely representing pneumonia.
[2024-05-01 16:36] LABS: Albumin 2.3 g/dL (3.4-5.0); Albumin/Globulin Ratio 0.5 (1.1-1.8); Anion Gap 11.6 mEq/L (5.0-15.0); Bilirubin Total 0.7 mg/dL (0.2-1.0); Globulin 4.6 g/dL (2.3-3.5); Potassium 3.6 mEq/L (3.5-5.1); Protein, Total 6.9 g/dL (6.4-8.2)
[2024-05-01 16:37] LABS: Influenza A Ag Negative; Influenza B Ag Negative; SARS-CoV-2 Antigen Rapid Res Negative (Negative)
--- NOTE | 2024-05-01 17:01 | EDPHYS ---
Physician Documentation [facility] Name: Jose Marcelino Age: 74 yrs Sex: Male : 1950 Arrival Date: 05/01/2024 Time: 15:34 Bed 6 Private MD: ED Physician David Morales HPI: 05/01 15:44 This 74 yrs old Male presents to ER via Unassigned with complaints of ec2 Vomiting, Altered Mental Status, Fever. 15:44 Patient arrives today for fevers and confusion as well as frequent cough. Patient with ec2 history of recurrent urinary tract infections, recent diagnosis of pneumonia, has been having some alteration in his mental status which is different from his baseline. No falls injuries or trauma. Has not taken any antipyretics. No abdominal pain, has been having some nausea and vomiting.. Historical: - Allergies: 15:36 Amoxicillin; aa5 15:36 Atrovent; aa5 15:36 hydrochlorothiazide; aa5 15:36 limestone; aa5 - PMHx: 15:36 Asthma; Atrial fibrillation; Chronic obstructive lung disease; Congestive heart aa5 failure; diabetes mellitus; Hypertensive disorder; - Immunization history:: Adult Immunizations unknown. - Infectious Disease History:: Denies. - Social history:: Smoking status: Patient denies any tobacco usage or history of. ROS: 15:45 Constitutional: as per hpi ec2 Exam: 15:45 Constitutional: GEN: NAD Head: atraumatic Eyes: EOMI Ears: External ears are ec2 normal. CV: regular rate LUNGS: Mild tachypnea ABD: Nontender not guarding SKIN: no evidence of rashes MSK: no evidence of trauma Vital Signs: 15:36 BP 120 / 47; Pulse 86; Resp 29 S; Temp 100.2(O); Pulse Ox 79% on R/A; aa5 15:40 Pulse Ox 90% on 4 lpm NC; aa5 15:56 BP 108 / 47; Pulse 68; Resp 20; Pulse Ox 95% on 4 lpm NC; cm10 16:00 BP 100 / 45; Pulse 66; Resp 20; Pulse Ox 94% on 4 lpm NC; cm10 16:26 BP 108 / 52; Pulse 64; Resp 20; Pulse Ox 95% on 4 lpm NC; cm10 16:42 BP 98 / 45; Pulse 60; Resp 21; Pulse Ox 99% on 4 lpm NC; cm10 16:45 BP 98 / 41; Pulse 59; Resp 22; Pulse Ox 98% on 4 lpm NC; cm10 17:00 BP 92 / 41; Pulse 59; Resp 22; Pulse Ox 99% on 4 lpm NC; cm10 17:03 Weight 65.77 kg (R); cm10 17:11 Temp 98.6(O); cm10 17:28 BP 99 / 45; ec2 17:45 BP 115 / 48; Pulse 60; Resp 15; Pulse Ox 100% on 4 lpm NC; cm10 18:07 BP 117 / 50; Pulse 54; Resp 16; Pulse Ox 100% on 5 lpm NC; jb4 MDM: 15:37 Medical Screening Exam initiated ec2 15:45 Data reviewed: vital signs, nurses notes. ED course: Patient arrives today for ec2 evaluation of fever as well as confusion and frequent cough. Examination yields slightly tachypneic individual with borderline febrile with hypoxia noted. Will obtain a septic workup. Will treat with Rocephin, give the patient crystalloid as well. DDx include processes such as pneumonia, viral infection, urinary tract infection.. 15:55 ED course: EKG independently reviewed and interpreted by me, shows normal sinus rhythm, ec2 rate of 74, no acute ST segment elevations, intervals are nonactionable, left bundle branch block noted.. 17:01 ED course: CBC shows leukocytosis. Metabolic profile with diminished renal function ec2 with creatinine 1.74 and GFR of 40, lactate is elevated at 3.8, chest x-ray shows likely pneumonia. Will admit for sepsis secondary to pneumonia, uti. discussed w/ hospitalist who will accept. 17:12 ED course: I discussed patient's hypotension, patient reports that he also takes ec2 midodrine at home for low blood pressures, will give the patient midodrine as well.. 17:13 ED course: On reassessment, pt w/ improvement in temperature. ec2 17:13 ED course: Pt receiving rest of 30cc/kg crystalloid bolus. sepsis reassessment complete.ec2 17:46 ED course: Sepsis reassessment complete. . ec2 05/01 15:38 Order name: Blood Culture Adult (2) ec2 05/01 15:38 Order name: CBC with Diff ec2 05/01 15:38 Order name: CMP; Complete Time: 16:57 ec2 05/01 15:38 Order name: Lactate w/ 2H reflex if indic.; Complete Time: 16:57 ec2 05/01 15:38 Order name: Protime (+inr); Complete Time: 16:35 ec2 05/01 15:38 Order name: Ptt, Activated; Complete Time: 16:35 ec2 05/01 15:38 Order name: COVID-19 Ag + Flu A+B Ag; Complete Time: 16:57 ec2 05/01 15:44 Order name: UAM; Complete Time: 16:35 ec2 05/01 16:29 Order name: Urine Culture EDMS 05/01 16:46 Order name: Ghost Lactate-NO COLLECT Timer EDMS 05/01 17:59 Order name: Basic Metabolic Panel EDMS 05/01 17:59 Order name: Basic Metabolic Panel EDMS 05/01 17:59 Order name: Basic Metabolic Panel EDMS 05/01 17:59 Order name: Basic Metabolic Panel EDMS 05/01 17:59 Order name: Basic Metabolic Panel EDMS 05/01 17:59 Order name: Basic Metabolic Panel EDMS 05/01 17:59 Order name: Basic Metabolic Panel EDMS 05/01 17:59 Order name: Basic Metabolic Panel EDMS 05/01 17:59 Order name: Magnesium EDMS 05/01 17:59 Order name: Magnesium EDMS 05/01 17:59 Order name: Magnesium EDMS 05/01 17:59 Order name: Magnesium EDMS 05/01 17:59 Order name: Magnesium EDMS 05/01 17:59 Order name: Magnesium EDMS 05/01 17:59 Order name: Magnesium EDMS 05/01 17:59 Order name: Magnesium EDMS 05/01 17:59 Order name: CBC with Automated Diff EDMS 05/01 17:59 Order name: CBC with Automated Diff EDMS 05/01 17:59 Order name: CBC with Automated Diff EDMS 05/01 17:59 Order name: CBC with Automated Diff EDMS 05/01 17:59 Order name: CBC with Automated Diff EDMS 05/01 17:59 Order name: CBC with Automated Diff EDMS 05/01 17:59 Order name: CBC with Automated Diff EDMS 05/01 17:59 Order name: CBC with Automated Diff EDMS 05/01 17:59 Order name: Urinalysis w/ reflexes [facility] 05/01 18:00 Order name: Phosphorus [facility] 05/01 18:00 Order name: Phosphorus [facility] 05/01 18:00 Order name: Phosphorus EDMS 05/01 18:00 Order name: Phosphorus EDMS 05/01 18:00 Order name: Phosphorus EDMS 05/01 18:00 Order name: Phosphorus EDMS 05/01 18:00 Order name: Phosphorus [facility] 05/01 18:00 Order name: Phosphorus [facility] 05/01 19:45 Order name: Lactate Sepsis 2 HR Follow-up [facility] 05/01 15:38 Order name: Chest Single View XRAY; Complete Time: 16:57 ec2 05/01 15:38 Order name: EKG; Complete Time: 15:39 ec2 05/01 17:59 Order name: Physical Therapy Consult [facility] 05/01 15:38 Order name: Accucheck; Complete Time: 16:14 ec2 05/01 15:38 Order name: Cardiac monitoring; Complete Time: 16:11 ec2 05/01 15:38 Order name: EKG - Nurse/Tech; Complete Time: 16:11 ec2 05/01 15:38 Order name: IV Saline Lock - Large Bore; Complete Time: 16:11 ec2 05/01 15:38 Order name: Labs collected and sent; Complete Time: 16:11 ec2 05/01 15:38 Order name: O2 Per Protocol; Complete Time: 16:11 ec2 05/01 15:38 Order name: O2 Sat Monitoring; Complete Time: 16:11 ec2 05/01 15:38 Order name: Vital Signs; Complete Time: 16:11 ec2 Administered Medications: 16:13 Drug: Rocephin IV 1 grams IV at calculated rate once; Given slow IV push per pharmacy bp instructions Route: IV; Rate: calculated rate; Site: right forearm; 16:43 Follow up: Response: No adverse reaction; IV Status: Completed infusion; IV Intake: [id number] 16:14 Drug: Acetaminophen PO 1000 mg PO once Route: PO; bp 17:12 Follow up: Response: No adverse reaction; Temperature is decreased cm10 16:14 Drug: Ibuprofen PO 800 mg PO once Route: PO; bp 17:12 Follow up: Response: No adverse reaction; Temperature is decreased cm10 16:14 Drug: NS 0.9% IV 1000 ml IV at 1000 ml once; to be given as a bolus over 60 minutes bp Route: IV; Rate: 1000 ml; Site: right forearm; 17:07 Follow up: Response: No adverse reaction; IV Status: Completed infusion; IV Intake: cm10 1000ml 17:08 Drug: NS 0.9% IV (30 ml/kg) 30 ml/kg IV at bolus once; Sepsis Protocol; to be given as cm10 a bolus over 90 minutes Route: IV; Rate: bolus; Site: right forearm; 18:00 Follow up: Response: No adverse reaction; IV Status: Completed infusion; IV Intake: cm10 1000ml 17:11 Drug: MethylPrednisoLONE IVP 125 mg IVP once Route: IVP; Site: right forearm; cm10 18:24 Follow up: Response: No adverse reaction cm10 17:12 Drug: AZITHromycin IVPB 500 mg IVPB once over 1 hrs; (mix in 250 mL NS) Route: IVPB; cm10 Infused Over: 1 hrs; Site: right forearm; 18:24 Follow up: Response: No adverse reaction; IV Status: Completed infusion; IV Intake: cm10 250ml 17:24 Drug: midodrine 20 mg PO once Route: PO; jb4 18:23 Follow up: Response: No adverse reaction; Blood pressure is elevated cm10 17:37 Drug: NS 0.9% IV 1000 ml IV at 1000 ml once; to be given as a bolus over 60 minutes cm10 Route: IV; Rate: 1000 ml; Site: left antecubital; 18:23 Follow up: Response: No adverse reaction; IV Status: Completed infusion; IV Intake: cm10 1000ml Disposition Summary: 05/01/24 17:01 Hospitalization Ordered Notes: Hospitalization Status: Inpatient Admission ec2 [facility] ec2 Condition: Stable ec2 Problem: an ongoing problem ec2 Symptoms: have improved ec2 Bed/Room Type: Standard ec2 Provider: Rafael Davey(05/01/24 17:12) ec2 Room Assignment: 219(05/01/24 18:03) bd Diagnosis - Unspecified bacterial pneumonia ec2 - Severe sepsis without septic shock ec2 - UTI/ Urinary tract infection, site not specified ec2 Forms: - Medication Reconciliation Form ec2 - SBAR form ec2 - Leadership Thank You Letter ec2 Critical care time excluding procedures: 17:01 Critical care time: Bedside Care: 30 minutes, Consultation: 5 minutes. Total time: 35 ec2 minutes Signatures: Dispatcher [employer] Lilia Can Audri, RN RN aa5 Oswaldo Pierre, RN RN jb4 Aayush Gonzalez, RN RN Ling Sanchez, RN RN cm10 David Morales MD MD ec2 Corrections: (The following items were deleted from the chart) 17:12 17:01 Kiana Devine ec2 ec2 18:03 17:01 ec2 bd
--- NOTE | 2024-05-01 17:01 | ER ---
Nurse's Notes [facility] Name: Jose Marcelino Age: 74 yrs Sex: Male : 1950 Arrival Date: 05/01/2024 Time: 15:34 Bed 6 Private MD: Diagnosis: Unspecified bacterial pneumonia;Severe sepsis without septic shock;UTI/ Urinary tract infection, site not specified Presentation: 05/01 15:36 Chief complaint: Pt's daughter in law reports confusion this morning, increased aa5 generalized weakness, vomiting, and subjective fever. 15:36 Coronavirus screen: fever. Ebola Screen: Patient denies travel to an Ebola-affected [facility] area in the 21 days before illness onset. Initial Sepsis Screen: Does the patient meet any 2 criteria? RR > 20 per min. Altered Mental Status. Yes Does the patient have a suspected source of infection?. Risk Assessment: Do you want to hurt yourself or someone else? Patient reports no desire to harm self or others. Onset of symptoms was May 01, 2024. 15:36 Method Of Arrival: Wheelchair aa5 15:36 Acuity: PHUC 2 aa5 Triage Assessment: 20:16 GI: Reports. cm10 Historical: - Allergies: 15:36 Amoxicillin; aa5 15:36 Atrovent; aa5 15:36 hydrochlorothiazide; aa5 15:36 limestone; aa5 - PMHx: 15:36 Asthma; Atrial fibrillation; Chronic obstructive lung disease; Congestive heart aa5 failure; diabetes mellitus; Hypertensive disorder; - Immunization history:: Adult Immunizations unknown. - Infectious Disease History:: Denies. - Social history:: Smoking status: Patient denies any tobacco usage or history of. Screenin:15 [facility] ED Fall Risk Assessment (Adult) History of falling in the last 3 months, cm10 including since admission No falls in past 3 months (0 pts) Confusion or Disorientation No (0 pts) Intoxicated or Sedated No (0 pts) Impaired Gait No (0 pts) Mobility Assist Device Used No (0 pt) Altered Elimination No (0 pt) Score/Fall Risk Level 0 - 2 = Low Risk Oriented to surroundings, Maintained a safe environment, Hourly rounding (assess needs \T\ fall precautionary measures) done. Abuse screen: Denies threats or abuse. Denies injuries from another. Nutritional screening: No deficits noted. Tuberculosis screening: No symptoms or risk factors identified. Assessment: 16:30 Reassessment: Report received form RAMON Looney. jb4 16:54 General: Appears in no apparent distress. comfortable, Behavior is calm, cooperative. jb4 Pain: Denies pain. Neuro: Level of Consciousness is awake, alert, obeys commands, Oriented to person, place, time, situation. Cardiovascular: Patient's skin is warm and dry. Respiratory: Airway is patent Respiratory effort is even, unlabored, Respiratory pattern is regular, symmetrical. GI: Abdomen is flat, non-distended. : Jeffers in place to gravity drainage Jeffers present prior to arriving to ER. Derm: Skin is intact, Skin is pink, warm \T\ dry. Musculoskeletal: Circulation, motion, and sensation intact. Range of motion: intact in all extremities. 18:07 Reassessment: Patient appears in no apparent distress at this time. Patient and/or jb4 family updated on plan of care and expected duration. Pain level reassessed. Patient is alert, oriented x 3, equal unlabored respirations, skin warm/dry/pink. Vital Signs: 15:36 BP 120 / 47; Pulse 86; Resp 29 S; Temp 100.2(O); Pulse Ox 79% on R/A; aa5 15:40 Pulse Ox 90% on 4 lpm NC; aa5 15:56 BP 108 / 47; Pulse 68; Resp 20; Pulse Ox 95% on 4 lpm NC; cm10 16:00 BP 100 / 45; Pulse 66; Resp 20; Pulse Ox 94% on 4 lpm NC; cm10 16:26 BP 108 / 52; Pulse 64; Resp 20; Pulse Ox 95% on 4 lpm NC; cm10 16:42 BP 98 / 45; Pulse 60; Resp 21; Pulse Ox 99% on 4 lpm NC; cm10 16:45 BP 98 / 41; Pulse 59; Resp 22; Pulse Ox 98% on 4 lpm NC; cm10 17:00 BP 92 / 41; Pulse 59; Resp 22; Pulse Ox 99% on 4 lpm NC; cm10 17:03 Weight 65.77 kg (R); cm10 17:11 Temp 98.6(O); cm10 17:28 BP 99 / 45; ec2 17:45 BP 115 / 48; Pulse 60; Resp 15; Pulse Ox 100% on 4 lpm NC; cm10 18:07 BP 117 / 50; Pulse 54; Resp 16; Pulse Ox 100% on 5 lpm NC; jb4 ED Course: 15:35 Patient arrived in ED. aa5 15:36 Arm band placed on. aa5 15:37 David Morales MD is Attending Physician. ec2 15:41 Aayush Gonzalez, RN is Primary Nurse. bp 15:45 Triage completed. aa5 15:50 Initial lab(s) drawn, by me, sent to lab. First set of blood cultures drawn by me. cm10 16:05 Second set of blood cultures drawn by me. cm10 16:10 Inserted saline lock: 20 gauge in right forearm, using aseptic technique. Blood cm10 collected. Flushed with 10 mL NS. 16:11 CBC with Diff Sent. cm10 16:11 CMP Sent. cm10 16:11 Lactate w/ 2H reflex if indic. Sent. cm10 16:11 Protime (+inr) Sent. cm10 16:11 Ptt, Activated Sent. cm10 16:15 Patient has correct armband on for positive identification. Bed in low position. Call cm10 light in reach. Side rails up X2. Provided Education on: ER process and procedures,. Client placed on continuous cardiac and pulse oximetry monitoring. NIBP monitoring applied. engine monitor on. 16:30 Chest Single View XRAY In Process Unspecified. EDMS 17:01 Kiana Devine MD is Hospitalizing Provider. ec2 17:12 Rafael Davey is Hospitalizing Provider. ec2 17:37 Inserted saline lock: 18 gauge in left antecubital area, using aseptic technique. cm10 Flushed with 10 mL NS. 20:15 No provider procedures requiring assistance completed. Patient admitted, IV remains in cm10 place. Administered Medications: 16:13 Drug: Rocephin IV 1 grams IV at calculated rate once; Given slow IV push per pharmacy bp instructions Route: IV; Rate: calculated rate; Site: right forearm; 16:43 Follow up: Response: No adverse reaction; IV Status: Completed infusion; IV Intake: [id number] 16:14 Drug: Acetaminophen PO 1000 mg PO once Route: PO; bp 17:12 Follow up: Response: No adverse reaction; Temperature is decreased cm10 16:14 Drug: Ibuprofen PO 800 mg PO once Route: PO; bp 17:12 Follow up: Response: No adverse reaction; Temperature is decreased cm10 16:14 Drug: NS 0.9% IV 1000 ml IV at 1000 ml once; to be given as a bolus over 60 minutes bp Route: IV; Rate: 1000 ml; Site: right forearm; 17:07 Follow up: Response: No adverse reaction; IV Status: Completed infusion; IV Intake: cm10 1000ml 17:08 Drug: NS 0.9% IV (30 ml/kg) 30 ml/kg IV at bolus once; Sepsis Protocol; to be given as cm10 a bolus over 90 minutes Route: IV; Rate: bolus; Site: right forearm; 18:00 Follow up: Response: No adverse reaction; IV Status: Completed infusion; IV Intake: cm10 1000ml 17:11 Drug: MethylPrednisoLONE IVP 125 mg IVP once Route: IVP; Site: right forearm; cm10 18:24 Follow up: Response: No adverse reaction cm10 17:12 Drug: AZITHromycin IVPB 500 mg IVPB once over 1 hrs; (mix in 250 mL NS) Route: IVPB; cm10 Infused Over: 1 hrs; Site: right forearm; 18:24 Follow up: Response: No adverse reaction; IV Status: Completed infusion; IV Intake: cm10 250ml 17:24 Drug: midodrine 20 mg PO once Route: PO; jb4 18:23 Follow up: Response: No adverse reaction; Blood pressure is elevated cm10 17:37 Drug: NS 0.9% IV 1000 ml IV at 1000 ml once; to be given as a bolus over 60 minutes cm10 Route: IV; Rate: 1000 ml; Site: left antecubital; 18:23 Follow up: Response: No adverse reaction; IV Status: Completed infusion; IV Intake: cm10 1000ml Medication: 20:16 VIS not applicable for this client. cm10 Intake: 16:43 IV: 50ml; Total: 50ml. cm10 17:07 IV: 1000ml; Total: 1050ml. cm10 18:00 IV: 1000ml; Total: 2050ml. cm10 18:23 IV: 1000ml; Total: 3050ml. cm10 18:24 IV: 250ml; Total: 3300ml. cm10 Outcome: 17:01 Decision to Hospitalize by Provider. ec2 20:15 Admitted to Med/surg accompanied by tech, via stretcher, cm10 20:15 Condition: good 20:15 Instructed on the need for admit, 20:16 Patient left the ED. cm10 Signatures: Dispatcher [employer] Li Nguyen, RN RN aa5 Oswaldo Pierre, RN RN jb4 Aayush Gonzalez, RN RN Ling Sanchez RN RN cm10 David Morales MD MD ec2 Corrections: (The following items were deleted from the chart) 16:42 16:40 BP 108 / 47; Pulse 68bpm; Resp 15bpm; Pulse Ox 95%; cm10 cm10
[2024-05-01] MEDS ORDERED: METHYLPREDNISOLONE 125 MG INJ ONE (17:05)
[2024-05-01] MEDS ORDERED: NA CHLORIDE 0.9% 250 ML ONE (17:06)
[2024-05-01] MEDS ORDERED: AZITHROMYCIN 500 MG INJ IVPB ONE (17:06)
[2024-05-01] MEDS ORDERED: MIDODRINE HCL 5 MG TABLET ONE (17:15)
[2024-05-01] MEDS ORDERED: ACETAMINOPHEN 325 MG TABLET PO PRN (17:52)
[2024-05-01] MEDS: NA CHLORIDE 0.9% 1,000 ML IV SCH (18:00)
--- NOTE | 2024-05-01 18:17 | P.HP ---
Certification for Inpatient Patient admitted to: Inpatient With expected LOS: >2 Midnights Practitioner: I am a practitioner with admitting privileges, knowledge of patient current condition, hospital course, and medical plan of care. Services: Services provided to patient in accordance with Admission requirements found in Title 42 Section 412.3 of the Code of Federal Regulations Patient History Date of Service: 05/01/24 Reason for admission: Severe sepsis secondary to pneumonia and UTI History of Present Illness: Jose Marcelino is a 74-year-old male with past medical history of Asthma; Atrial fibrillation; Chronic obstructive lung disease (2LNC); Congestive heart failure; diabetes mellitus; Hypertensive disorder; BPH with chronic Perez, who presents to the ED with chief complaint of shortness of breath and confusion. He reports his daughter- in law noticed he was confused brought him to the emergency room. He is on 2 L nasal cannula at home but is on 5 LNC in the ED. Laboratory evaluation significant for H&H 11/35, platelets 423, WBC 23, lactic acid 3.8, BUN creatinine 28/1.74, GFR 40, alk phos 145, UA suggestive of infectious process. Chest x-ray reports "Moderate airspace consolidation right lower lung likely representing pneumonia. " Jose will be admitted to hospitalist service for further treatment of severe sepsis without septic shock 2/2 PNA and UTI Allergies ipratropium [From Atrovent] Adverse Reaction (Verified 02/29/24 19:39) dizziness limestone Allergy (Uncoded 02/27/24 03:25) Itching/Hives/Rash Home Medications: Amiodarone HCl [Cordarone*] 200 mg PO BID #60 tab 06/17/22 Bupropion *Xl* [Wellbutrin XL*] 150 mg PO DAILY 30 Days #30 tab 03/18/23 Alfuzosin HCl 10 mg PO DAILY 05/07/23 Atorvastatin Calcium [Lipitor] 40 mg PO BEDTIME 30 Days #30 tab 05/11/23 Hydrocodone Bit/Acetaminophen [Kittrell 7.5-325 Tablet] 1 tab PO BID 06/24/23 Pregabalin [Lyrica] 25 mg PO BID 06/24/23 Apixaban [Eliquis *] 2.5 mg PO BID 09/16/23 Furosemide 20 mg PO DAILY 09/16/23 Levocetirizine Dihydrochloride [Allergy Relief] 5 mg PO BEDTIME 09/16/23 Midodrine HCl [Proamatine*] 5 mg PO BID 09/16/23 Ondansetron [Zofran (Odt)*] 4 mg PO Q6H PRN 09/16/23 Zinc Gluconate [Zinc] 50 mg PO DAILY 09/16/23 predniSONE [Deltasone*] 10 mg PO DAILY 09/16/23 Ensure High Protein 237 ml PO BID #30 can 03/03/24 Linezolid [Zyvox*] 600 mg PO BID #12 tab 03/04/24 Petrolatum,White [Petroleum Jelly] 1 cherie TP BID #368 g 03/04/24 - Past Medical/Surgical History Diabetic: Yes -: Diabetes mellitus type [id number] -: Asthma -: Arthritis -: COPD on home O2 -: Hx PASTOR (Dr. Sousa/ Dr. Stubbs) -: HLD -: Depression -: Atrial fibrillation on chronic anticoagulation -: Hypotension on midodrine -: Diastolic CHF/ Moderate TR -: Urinary retention -: BPH (chronic perez) -: Cyst removal from right side of neck Psychosocial/ Personal History: Patient lives at home with his son - Family History Mother -: Heart disease, Diabetes Sister -: Lung disease, Diabetes, Cancer Father -: Lung disease, Cancer - Social History Smoking Status: Never smoker Alcohol use: No CD- Drugs: No Caffeine use: Yes Review of Systems Other: per HPI Physical Examination - Physical Exam General: Alert, In no apparent distress, Oriented x3 HEENT: Atraumatic, Normocephalic, PERRLA Neck: 2+ carotid pulse no bruit Respiratory: Clear to auscultation bilaterally, Normal air movement Cardiovascular: Normal pulses, Regular rate/rhythm, Normal S1 S2 Capillary refill: <2 Seconds Gastrointestinal: Normal bowel sounds, Soft and benign Musculoskeletal: No clubbing Integumentary: No rashes Neurological: Normal speech, Normal tone - Studies Laboratory Data (last 24 hrs) 05/01/24 05/01/24 05/01/24 16:05 16:05 16:05 WBC 23.60 H Hgb 11.0 L Hct 35.3 L Plt Count 423 H PT 17.5 H INR 1.57 APTT 32.3 Sodium 138 Potassium 3.6 BUN 28 H Creatinine 1.74 H Glucose 104 Total Bilirubin 0.7 AST 32 ALT 26 Alkaline Phosphatase 145 H Assessment and Plan - Plan Assessment and plan Severe sepsis without septic shock secondary to pneumonia History of COPD and Asthma -Sepsis criteria WBC 23.6, lactic acid 3.8, RR 29, considerable drop to BP 98/45 -Azithromycin and Rocephin daily -Sepsis dose IVF given in the ED -Solu-Medrol IV -Xopenex every 8h -Gentle IV fluids -Oxygen protocol -Follow blood cultures -repeat lactic pending UTI (POA) History BPH History Left hydronephrosis -IV abx same as above -Chronic Perez catheter-reports changed last week -follow urine cultures PASTOR -BUN/creatinine 28/1.74, GFR 40 -Gentle IV fluids Atrial fibrillation Diastolic Congestive heart failure -continue home medications -Continuous telemetry Diabetes Mellitus -NIDDM -Accu-Chek with sliding scale insulin Hypertensive disorder -Continue home medications as appropriate -Titrate as needed -Currently hypotensive, will hold for now DVT PPx Lovenox Full code LOS 2 to 3 days Discharge Plan: Home Plan to discharge in: 48 Hours - Advance Directives Does patient have a Living Will: Yes Does patient have a Durable POA for Healthcare: Yes
[2024-05-01] MEDS ORDERED: GLUCAGON 1 MG/VIAL IM PRN (18:25)
[2024-05-01] MEDS ORDERED: D10W 125 ML IV PRN (18:25)
[2024-05-01 20:30] LABS: Anisocytosis 1+; Blood Morphology Comment NOTED (NOT SEEN); Platelet Estimate INCR; White Blood Cell Scan OK (OK)
[2024-05-01] MEDS: INSULIN REGULAR (HUMAN) 100 UNIT/ML SQ SCH (21:00)
[2024-05-02 00:29] VITALS: BMI 22.1
[2024-05-02] MEDS: METHYLPREDNISOLONE 40 MG INJ IV SCH (01:31)
[2024-05-02 04:32] LABS: Absolute Lymphocytes (CBC) 0.8 K/uL (0.7-4.9); Absolute Monocytes 0.2 K/uL (0.1-1.3); Absolute Neutrophil 13.3 K/uL (1.8-8.0); Basophils % 0.2 % (0-1.3); Hematocrit 28.9 % (39.6-49.0); Hemoglobin 9.3 g/dL (13.6-17.9); Lymphocytes % 5.9 % (15.3-44.8); MCH 25.6 pg (27.0-35.0); MCHC 32.1 g/dL (32.0-36.0); MCV 79.7 fL (80-100); MPV 6.7 fL (7.6-11.3); Monocytes % 1.3 % (3.3-12.3); Platelets 317 thou/uL (152-406); RBC Red Blood Cell Count 3.62 M/uL (4.33-5.43); Red Cell Distribution Width 21.3 % (12.1-15.2)
[2024-05-02 04:33] LABS: Neutrophils % 92.6 % (41.7-73.7)
[2024-05-02 04:42] LABS: Anion Gap 9.6 mEq/L (5.0-15.0); Magnesium 1.7 mg/dL (1.6-2.4); Phosphorus 3.9 mg/dL (2.5-4.9); Potassium 3.6 mEq/L (3.5-5.1)
[2024-05-02] MEDS: LEVALBUTEROL 0.63 MG/3 ML NEB NEB SCH (07:00)
[2024-05-02] MEDS: AZITHROMYCIN IV 500 MG in NA CHLORIDE 0.9% 250 ML IVPB SCH (09:13)
[2024-05-02] MEDS: ENOXAPARIN 40 MG/0.4 ML SQ SCH (09:13)
[2024-05-02] MEDS: CEFTRIAXONE 1,000 MG in NA CHLORIDE 0.9% 50 ML IVPB SCH (09:14)
[2024-05-02] MEDS ORDERED: [UNRECOGNIZED DRUG - REMARK] PO PRN (12:40)
--- NOTE | 2024-05-02 12:46 | P.PN ---
Date of Service: 05/02/24 Subjective: Improving, no acute events overnight ROS: 10 point ROS as noted above, otherwise negative Physical exam GEN: Alert, oriented, NAD HEENT: Normal conjunctiva, sclera anicteric CV: Regular rate and rhythm, no edema Pulm: Nonlabored respirations on room air ABD: Soft, nontender, nondistended, Jeffers catheter in place MSK: No joint tenderness Integumentary: No rashes Neuro: Normal speech, normal affect Vitals reviewed Assessment: Severe sepsis secondary to pneumonia, UTI Complicated urinary tract infection with chronic indwelling Jeffers catheter History of BPH, left hydronephrosis Acute kidney injury secondary to severe sepsis Atrial fibrillation Diabetes mellitus type [id number] Hypertension Plan: Severe sepsis secondary to pneumonia, UTI Complicated urinary tract infection with chronic indwelling Jeffers catheter History of BPH, left hydronephrosis Acute kidney injury secondary to severe sepsis Jeffers catheter in place changed about a week ago Continue Rocephin, Zithromax for now Await blood/urine cultures White blood cell count improving PT ordered Atrial fibrillation Amiodarone, Eliquis continued Monitor on telemetry Diabetes mellitus type [id number] Chronic hypotension on midodrine ACHS Accu-Chek, sliding scale insulin Home medications continued Midodrine currently on hold, will resume if blood pressures are soft DVT PPX: Continue Eliquis Code status: Full code Time Spent Managing Pts Care (In Minutes): 35
[2024-05-02] MEDS: ENSURE ENLIVE 237 ML CAN PO SCH (17:00)
[2024-05-02] MEDS: HYDROCODONE/APAP 7.5/325 MG TAB PO SCH (20:39)
[2024-05-02] MEDS: APIXABAN 2.5 MG TABLET PO SCH (20:39)
[2024-05-02] MEDS: PREGABALIN 25 MG CAPSULE PO SCH (20:39)
[2024-05-02] MEDS: AMIODARONE HCL 200 MG TAB PO SCH (20:39)
[2024-05-02] MEDS: ATORVASTATIN 40 MG TAB PO SCH (20:39)
[2024-05-02] MEDS ORDERED: ENSURE HIGH PROTEIN 237 ML CAN PO SCH (21:00)
[2024-05-02] MEDS: BENZONATATE 100 MG CAP PO ONE (22:34)
[2024-05-03] MEDS ORDERED: ALBUTEROL 2.5 MG/3 ML NEB SOL NEB SCH (01:00)
[2024-05-03] MEDS ORDERED: HYDRALAZINE HCL 25 MG TABLET PO ONE (01:25)
[2024-05-03] MEDS: hydrOXYzine HCL 25 MG TAB PO ONE (01:42)
[2024-05-03] MEDS: ALBUTEROL 2.5 MG/3 ML NEB SOL NEB PRN (01:46)
[2024-05-03 05:57] LABS: Absolute Lymphocytes (CBC) 1.6 K/uL (0.7-4.9); Absolute Monocytes 0.7 K/uL (0.1-1.3); Absolute Neutrophil 13.7 K/uL (1.8-8.0); Basophils % 0.1 % (0-1.3); Hematocrit 26.3 % (39.6-49.0); Hemoglobin 8.5 g/dL (13.6-17.9); Lymphocytes % 9.8 % (15.3-44.8); MCH 25.9 pg (27.0-35.0); MCHC 32.2 g/dL (32.0-36.0); MCV 80.5 fL (80-100); MPV 6.9 fL (7.6-11.3); Monocytes % 4.1 % (3.3-12.3); Platelets 345 thou/uL (152-406); RBC Red Blood Cell Count 3.26 M/uL (4.33-5.43); Red Cell Distribution Width 21.4 % (12.1-15.2)
[2024-05-03 06:06] LABS: Anion Gap 9.5 mEq/L (5.0-15.0); Magnesium 1.8 mg/dL (1.6-2.4); Phosphorus 2.7 mg/dL (2.5-4.9); Potassium 3.5 mEq/L (3.5-5.1)
[2024-05-03] MEDS: BUPROPION HCL XL 150 MG TAB PO SCH (09:46)
[2024-05-03] MEDS: BENZONATATE 100 MG CAP PO SCH (09:46)
--- NOTE | 2024-05-03 14:15 | P.PN ---
Date of Service: 05/03/24 Subjective: Improving, no acute events overnight ROS: 10 point ROS as noted above, otherwise negative Physical exam GEN: Alert, oriented, NAD HEENT: Normal conjunctiva, sclera anicteric CV: Regular rate and rhythm, no edema Pulm: Nonlabored respirations on room air ABD: Soft, nontender, nondistended, Jeffers catheter in place MSK: No joint tenderness Integumentary: No rashes Neuro: Normal speech, normal affect Vitals reviewed Assessment: Severe sepsis secondary to pneumonia, UTI Complicated urinary tract infection with chronic indwelling Jeffers catheter History of BPH, left hydronephrosis Acute kidney injury secondary to severe sepsis Atrial fibrillation Diabetes mellitus type [id number] Hypertension Plan: Severe sepsis secondary to pneumonia, UTI Complicated urinary tract infection with chronic indwelling Jeffers catheter History of BPH, left hydronephrosis Acute kidney injury secondary to severe sepsis Jeffers catheter in place changed about a week ago Continue Rocephin, Zithromax for now Await blood/urine cultures Monitor CBC daily Working with PT Atrial fibrillation Amiodarone, Eliquis continued Monitor on telemetry Diabetes mellitus type [id number]-[id number] Chronic hypotension on midodrine ACHS Accu-Chek, sliding scale insulin Home medications continued Midodrine currently on hold, will resume if blood pressures are soft DVT PPX: Continue Eliquis Code status: Full code Time Spent Managing Pts Care (In Minutes): 35
[2024-05-03] MEDS: predniSONE 10 MG TAB PO SCH (16:29)
--- NOTE | 2024-05-04 08:48 | EKG ---
Test Date: 2024-05-01 Test Time: 15:46:58 Branch Banker: MISA MEASUREMENT RESULTS: Intervals: Rate: 74 [place]: 250 QRSD: 162 QT: 450 QTc: 499 [place]: P: 0 [place]: 250 QRS: -79 T: 81 INTERPRETIVE STATEMENTS: Sinus rhythm with 1st degree AV block Right bundle branch block Left anterior fascicular block Bifascicular block T wave abnormality, consider inferolateral ischemia Abnormal ECG Compared to ECG 01/13/2024 07:38:27 T-wave abnormality now present Possible ischemia now present Bifascicular block still present Electronically Signed On 05-04-24 08:40:15 CDT by Chaz Vang
[2024-05-04] MEDS: Meropenem 1,000 MG in NA CHLORIDE 0.9% 100 ML IV SCH (09:07)
[2024-05-04 11:28] LABS: Absolute Basophils 0.1 K/uL (0-0.5); Absolute Monocytes 0.6 K/uL (0.1-1.3); Absolute Neutrophil 13.2 K/uL (1.8-8.0); Basophils % 0.4 % (0-1.3); Eosinophils % 0.1 % (0-4.4); Hematocrit 26.9 % (39.6-49.0); Hemoglobin 8.6 g/dL (13.6-17.9); Lymphocytes % 6.9 % (15.3-44.8); MCH 25.2 pg (27.0-35.0); MCHC 31.8 g/dL (32.0-36.0); MCV 79.2 fL (80-100); MPV 6.9 fL (7.6-11.3); Monocytes % 4.3 % (3.3-12.3); Neutrophils % 88.3 % (41.7-73.7); Platelets 349 thou/uL (152-406); Red Cell Distribution Width 21.5 % (12.1-15.2)
[2024-05-04 11:55] LABS: Magnesium 2.1 mg/dL (1.6-2.4)
--- NOTE | 2024-05-04 13:14 | P.PN ---
Date of Service: 05/04/24 Subjective: Improving, no acute events overnight Urine culture grew ESBL E. coli ROS: 10 point ROS as noted above, otherwise negative Physical exam GEN: Alert, oriented, NAD HEENT: Normal conjunctiva, sclera anicteric CV: Regular rate and rhythm, no edema Pulm: Nonlabored respirations on room air ABD: Soft, nontender, nondistended, Jeffers catheter in place MSK: No joint tenderness Integumentary: No rashes Neuro: Normal speech, normal affect Vitals reviewed Assessment: Severe sepsis secondary to pneumonia, UTI Complicated urinary tract infection with chronic indwelling Jeffers catheter History of BPH, left hydronephrosis Acute kidney injury secondary to severe sepsis Atrial fibrillation Diabetes mellitus type [id number] Hypertension Plan: Severe sepsis secondary to pneumonia, UTI Complicated urinary tract infection with chronic indwelling Jeffers catheter History of BPH, left hydronephrosis Acute kidney injury secondary to severe sepsis Jeffers catheter in place changed about a week ago Urine culture grew E. coli ESBL Switched to meropenem 05/04 ID consulted Await blood cultures Monitor CBC daily Working with PT Atrial fibrillation Amiodarone, Eliquis continued Monitor on telemetry Diabetes mellitus type [id number] Chronic hypotension on midodrine ACHS Accu-Chek, sliding scale insulin Home medications continued Midodrine currently on hold, will resume if blood pressures are soft DVT PPX: Continue Eliquis Code status: Full code Time Spent Managing Pts Care (In Minutes): 35
[2024-05-04 13:19] LABS: Differential Total Cells Count 100; Eosinophils 1 % (0-3); Lymphocytes 7 % (15-42); Monocytes 4 % (0-10); Segmented Neutrophils 88 % (40-80)
[2024-05-04 13:20] LABS: Anisocytosis 1+; Blood Morphology Comment NOTED (NOT SEEN); Platelet Estimate ADEQ
[2024-05-04 13:21] LABS: Rouleau NOTED
--- NOTE | 2024-05-04 17:01 | CON ---
History Of Present Illness: This is a 74-year-old male. I was consulted to evaluate for pneumonia a nd urinary tract infection. The patient has significant past medical history of asthma; atrial fibri llation; chronic obstructive lung disease, on 2 L nasal cannula at home with congestive heart failure ; diabetes mellitus; hypertension; benign prostatic hypertrophy with chronic Jeffers catheter; who come s in the emergency room with shortness of breath and confusion. The patient feels much better today. Denies any other problems. Continues to have some cough and discomfort with cough. Past Medical History: As per HPI. Social History: Nonsmoker. Nondrinker. Family History: Heart disease, diabetes mellitus, cancer. Medications: Meropenem. See MARs for other medications. Allergies: IPRATROPIUM, LIMESTONE. Review of Systems: A 10-point review was performed. Physical Examination: General: This is a 74-year-old male, lying in bed, not in any acute cardiopulmonary distress. Vital Signs: Temperature 98, pulse 65, respiration 20, blood pressure 161/74. HEENT: Unremarkable. Neck: Supple. Lungs: Basal crackles. Heart: S1, S2. Regular. Abdomen: Soft, nontender. Bowel sounds present. Extremities: No edema. Laboratory Data: Shows WBC 14.9, hemoglobin 8.6, platelets are 349. Chemistry shows BUN of 32, crea tinine 0.9, albumin level is 2.3. Micro data shows E coli ESBL in the urine. Chest x-ray shows righ t lower lobe pneumonia. Assessment And Plan: A 74-year-old male with chronic obstructive pulmonary disease, coming in with r ight lower lobe pneumonia and urosepsis. Leukocytosis. Anemia of chronic disease. Moderate protein-calorie malnourishment. Agree with meropenem to continue for 7-10 days. Depending on the patient's improvement, we will cont inue to follow. Blood cultures are negative to date. We will follow the patient as needed. Thank you for consult. EVA/RIZWAN Voice ID: [id number] Report ID: [id number]
[2024-05-05 09:42] LABS: Absolute Basophils 0.1 K/uL (0-0.5); Absolute Eosinophils 0.9 K/uL (0-0.5); Absolute Lymphocytes (CBC) 3.1 K/uL (0.7-4.9); Absolute Monocytes 0.7 K/uL (0.1-1.3); Basophils % 0.5 % (0-1.3); Eosinophils % 6.1 % (0-4.4); Hematocrit 28.3 % (39.6-49.0); Hemoglobin 8.9 g/dL (13.6-17.9); Lymphocytes % 20.9 % (15.3-44.8); MCH 25.2 pg (27.0-35.0); MCHC 31.6 g/dL (32.0-36.0); MCV 79.7 fL (80-100); MPV 6.8 fL (7.6-11.3); Monocytes % 4.6 % (3.3-12.3); Neutrophils % 67.9 % (41.7-73.7); Platelets 363 thou/uL (152-406); RBC Red Blood Cell Count 3.55 M/uL (4.33-5.43)
[2024-05-05 09:55] LABS: Anion Gap 5.8 mEq/L (5.0-15.0); Magnesium 2.1 mg/dL (1.6-2.4); Phosphorus 1.9 mg/dL (2.5-4.9); Potassium 3.8 mEq/L (3.5-5.1)
[2024-05-05] MEDS ORDERED: CETIRIZINE HCL 5 MG TABLET PO PRN (11:23)
[2024-05-05] MEDS: TAMSULOSIN 0.4 MG SR CAP PO SCH (13:37)
--- NOTE | 2024-05-05 14:52 | P.PN ---
Date of Service: 05/05/24 Subjective: Improving, no acute events overnight Urine culture grew ESBL E. coli ROS: 10 point ROS as noted above, otherwise negative Physical exam GEN: Alert, oriented, NAD HEENT: Normal conjunctiva, sclera anicteric CV: Regular rate and rhythm, no edema Pulm: Nonlabored respirations on room air ABD: Soft, nontender, nondistended, Jeffers catheter in place MSK: No joint tenderness Integumentary: No rashes Neuro: Normal speech, normal affect Vitals reviewed Assessment: Severe sepsis secondary to pneumonia, UTI Complicated urinary tract infection with chronic indwelling Jeffers catheter History of BPH, left hydronephrosis Acute kidney injury secondary to severe sepsis Atrial fibrillation Diabetes mellitus type [id number]-[id number] Hypertension Plan: Severe sepsis secondary to pneumonia, UTI Complicated urinary tract infection with chronic indwelling Jeffers catheter History of BPH, left hydronephrosis Acute kidney injury secondary to severe sepsis Jeffers catheter in place changed about a week ago Urine culture grew E. coli ESBL Switched to meropenem 05/04 Needs 10 days IV merrem/invanz end date 05/13 Midline catheter ordered ID consulted Blood cultures with no growth so far Monitor CBC daily Working with PT Atrial fibrillation Amiodarone, Eliquis continued Monitor on telemetry Diabetes mellitus type [id number] Chronic hypotension on midodrine ACHS Accu-Chek, sliding scale insulin Home medications continued Midodrine currently on hold, will resume if blood pressures are soft DVT PPX: Continue Eliquis Code status: Full code Time Spent Managing Pts Care (In Minutes): 35
--- NOTE | 2024-05-05 18:26 | PN ---
Subjective: The patient is lying in bed. No new acute event. Chart reviewed. Objective: Vital signs: Reviewed. Lungs: Basal crackles. Heart: S1, S2. Regular. Abdomen: Soft, nontender. Bowel sounds present. Extremities: No edema. Laboratory Data: WBC 14.8, hemoglobin 8.9, platelets 363. Urine culture showing ESBL E coli more th an 100,000. The patient is currently on meropenem. Assessment And Plan: Urosepsis secondary to extended-spectrum beta-lactamase Escherichia coli. Right lower lobe pneumonia. Continue meropenem. Leukocytosis. Anemia of chronic disease. Monitor signs of infection with WBC and fever trends. NF/MODL Voice ID: [id number] Report ID: [id number]
[2024-05-06 05:54] LABS: Absolute Eosinophils 0.7 K/uL (0-0.5); Absolute Lymphocytes (CBC) 3.3 K/uL (0.7-4.9); Absolute Monocytes 0.7 K/uL (0.1-1.3); Absolute Neutrophil 7.6 K/uL (1.8-8.0); Basophils % 0.3 % (0-1.3); Eosinophils % 5.4 % (0-4.4); Hematocrit 28.2 % (39.6-49.0); Lymphocytes % 26.8 % (15.3-44.8); MCH 25.5 pg (27.0-35.0); MCHC 31.9 g/dL (32.0-36.0); MPV 6.8 fL (7.6-11.3); Monocytes % 5.7 % (3.3-12.3); Neutrophils % 61.8 % (41.7-73.7); Platelets 393 thou/uL (152-406); RBC Red Blood Cell Count 3.52 M/uL (4.33-5.43); Red Cell Distribution Width 20.9 % (12.1-15.2)
[2024-05-06 06:03] LABS: Anion Gap 6.4 mEq/L (5.0-15.0); Magnesium 2.1 mg/dL (1.6-2.4); Phosphorus 2.1 mg/dL (2.5-4.9); Potassium 4.4 mEq/L (3.5-5.1)
--- NOTE | 2024-05-06 12:15 | P.PN ---
Date of Service: 05/06/24 Subjective: Improving, no acute events overnight Urine culture grew ESBL E. coli ROS: 10 point ROS as noted above, otherwise negative Physical exam GEN: Alert, oriented, NAD HEENT: Normal conjunctiva, sclera anicteric CV: Regular rate and rhythm, no edema Pulm: Nonlabored respirations on room air ABD: Soft, nontender, nondistended, Jeffers catheter in place MSK: No joint tenderness Integumentary: No rashes Neuro: Normal speech, normal affect Vitals reviewed Assessment: Severe sepsis secondary to pneumonia, UTI Complicated urinary tract infection with chronic indwelling Jeffers catheter History of BPH, left hydronephrosis Acute kidney injury secondary to severe sepsis Atrial fibrillation Diabetes mellitus type [id number] Hypertension Plan: Severe sepsis secondary to pneumonia, UTI Complicated urinary tract infection with chronic indwelling Jeffers catheter History of BPH, left hydronephrosis Acute kidney injury secondary to severe sepsis Jeffers catheter in place changed about a week ago Urine culture grew E. coli ESBL Switched to meropenem 05/04 Needs 10 days IV merrem/invanz end date 05/13 Midline catheter placed ID consulted Blood cultures with no growth so far Monitor CBC daily Working with PT Jagdeep DC Wednesday/wednesday Atrial fibrillation Amiodarone, Eliquis continued Monitor on telemetry Diabetes mellitus type [id number] Chronic hypotension on midodrine ACHS Accu-Chek, sliding scale insulin Home medications continued Midodrine currently on hold, will resume if blood pressures are soft DVT PPX: Continue Eliquis Code status: Full code Time Spent Managing Pts Care (In Minutes): 35
[2024-05-06] MEDS ORDERED: DIPHENHYDRAMINE 50 MG/ML VIAL IV PRN (16:14)
[2024-05-07 05:39] LABS: Absolute Basophils 0.1 K/uL (0-0.5); Absolute Eosinophils 0.7 K/uL (0-0.5); Absolute Lymphocytes (CBC) 3.4 K/uL (0.7-4.9); Absolute Monocytes 0.8 K/uL (0.1-1.3); Absolute Neutrophil 8.5 K/uL (1.8-8.0); Basophils % 0.6 % (0-1.3); Hematocrit 28.2 % (39.6-49.0); Hemoglobin 8.9 g/dL (13.6-17.9); Lymphocytes % 25.5 % (15.3-44.8); MCH 24.9 pg (27.0-35.0); MCHC 31.6 g/dL (32.0-36.0); MCV 78.8 fL (80-100); MPV 7.1 fL (7.6-11.3); Neutrophils % 62.9 % (41.7-73.7); Platelets 373 thou/uL (152-406); RBC Red Blood Cell Count 3.58 M/uL (4.33-5.43)
[2024-05-07 05:59] LABS: Anion Gap 6.3 mEq/L (5.0-15.0); Magnesium 2.2 mg/dL (1.6-2.4); Phosphorus 2.7 mg/dL (2.5-4.9); Potassium 4.3 mEq/L (3.5-5.1)
--- NOTE | 2024-05-07 14:02 | P.PN ---
Date of Service: 05/07/24 Subjective: Improving, no acute events overnight Urine culture grew ESBL E. coli Midline in place ROS: 10 point ROS as noted above, otherwise negative Physical exam GEN: Alert, oriented, NAD HEENT: Normal conjunctiva, sclera anicteric CV: Regular rate and rhythm, no edema Pulm: Nonlabored respirations on room air ABD: Soft, nontender, nondistended, Jeffers catheter in place MSK: No joint tenderness Integumentary: No rashes Neuro: Normal speech, normal affect Vitals reviewed Assessment: Severe sepsis secondary to pneumonia, UTI Complicated urinary tract infection with chronic indwelling Jeffers catheter History of BPH, left hydronephrosis Acute kidney injury secondary to severe sepsis Atrial fibrillation Diabetes mellitus type [id number] Hypertension Plan: Severe sepsis secondary to pneumonia, UTI Complicated urinary tract infection with chronic indwelling Jeffers catheter History of BPH, left hydronephrosis Acute kidney injury secondary to severe sepsis Jeffers catheter in place changed about a week ago Urine culture grew E. coli ESBL Switched to meropenem 05/04 Needs 10 days IV merrem/invanz end date 05/13 Midline catheter placed ID consulted Blood cultures with no growth so far Monitor CBC daily Working with PT Poss DC Wednesday/wednesday Atrial fibrillation Amiodarone, Eliquis continued Monitor on telemetry Diabetes mellitus type [id number] Chronic hypotension on midodrine ACHS Accu-Chek, sliding scale insulin Home medications continued Midodrine currently on hold, will resume if blood pressures are soft DVT PPX: Continue Eliquis Code status: Full code Time Spent Managing Pts Care (In Minutes): 35
[2024-05-07 14:51] VITALS: O2SAT 92
[2024-05-08 07:39] LABS: Absolute Basophils 0.1 K/uL (0-0.5); Absolute Eosinophils 0.7 K/uL (0-0.5); Absolute Lymphocytes (CBC) 2.6 K/uL (0.7-4.9); Absolute Monocytes 0.7 K/uL (0.1-1.3); Basophils % 0.7 % (0-1.3); Eosinophils % 4.7 % (0-4.4); Hematocrit 29.7 % (39.6-49.0); Hemoglobin 9.4 g/dL (13.6-17.9); Lymphocytes % 18.7 % (15.3-44.8); MCH 25.4 pg (27.0-35.0); MCHC 31.7 g/dL (32.0-36.0); MPV 6.6 fL (7.6-11.3); Neutrophils % 70.9 % (41.7-73.7); Platelets 435 thou/uL (152-406); RBC Red Blood Cell Count 3.71 M/uL (4.33-5.43); Red Cell Distribution Width 20.7 % (12.1-15.2)
[2024-05-08 07:48] LABS: Anion Gap 7.2 mEq/L (5.0-15.0); Magnesium 2.6 mg/dL (1.6-2.4); Phosphorus 3.2 mg/dL (2.5-4.9); Potassium 4.2 mEq/L (3.5-5.1)
[2024-05-08] MEDS: ERTAPENEM SODIUM 1 GM VIAL IVPB SCH (10:00)
[2024-05-08] MEDS: ERTAPENEM NA 1 GM in NA CHLORIDE 0.9% 100 ML IVPB ONE (11:07)
--- NOTE | 2024-05-08 13:30 | P.DS ---
Admission Date: 05/01/24 Discharge Date: 05/08/24 Disposition: DC HOME/HOME HEALTH CARE Discharge Condition: GOOD Reason for Admission: Severe sepsis secondary to pneumonia and UTI Brief History of Present Illness: Jose Marcelino is a 74-year-old male with past medical history of Asthma; Atrial fibrillation; Chronic obstructive lung disease (2LNC); Congestive heart failure; diabetes mellitus; Hypertensive disorder; BPH with chronic Jeffers, who presents to the ED with chief complaint of shortness of breath and confusion. He reports his daughter- in law noticed he was confused brought him to the emergency room. He is on 2 L nasal cannula at home but is on 5 LNC in the ED. Laboratory evaluation significant for H&H , platelets 423, WBC 23, lactic acid 3.8, BUN creatinine 28/1.74, GFR 40, alk phos 145, UA suggestive of infectious process. Chest x-ray reports "Moderate airspace consolidation right lower lung likely representing pneumonia. " Jose will be admitted to hospitalist service for further treatment of severe sepsis without septic shock 2/2 PNA and UTI Hospital Course: Assessment: Severe sepsis secondary to pneumonia, UTI Complicated urinary tract infection with chronic indwelling Jeffers catheter History of BPH, left hydronephrosis Acute kidney injury secondary to severe sepsis Atrial fibrillation Diabetes mellitus type [id number] Hypertension Patient was admitted to the hospital for UTI, pneumonia. Blood culture showed no growth, urine culture returned with E. coli ESBL. Patient has a chronic indwelling Jeffers catheter which was recently replaced, he is scheduled to follow-up with urology in the next 1 to 2 weeks. He was seen by infectious disease who recommended continuing for total of 10 days on the Merrem/Invanz. A midline catheter has been placed and home health/physical therapy has been arranged for. Patient has continued to improve that his hospitalization he has been afebrile throughout the entire course. He is close to his baseline physical capability feeling ready to go home. Home medications should be continued as previously prescribed The antibiotic will be continued through 05/13/2024, after this midline catheter should be removed He will need to follow-up with Dr. Jimenes urology to evaluate the further need for indwelling Jeffers catheter You should follow-up also with your primary care doctor 1 to 2 weeks Vital Signs/Physical Exam: Temp Pulse Resp BP Pulse Ox 97.5 F 52 20 126/59 L 96 05/08/24 12:00 05/08/24 12:00 05/08/24 12:00 05/08/24 12:00 05/08/24 12:00 General: Alert, In no apparent distress, Oriented x3 HEENT: Atraumatic, PERRLA Neck: Supple, JVD not distended Respiratory: Clear to auscultation bilaterally, Normal air movement Cardiovascular: Regular rate/rhythm, Normal S1 S2 Gastrointestinal: Normal bowel sounds, No tenderness Musculoskeletal: No tenderness Integumentary: No rashes Neurological: Normal speech, Normal affect Urinary: Jeffers catheter Laboratory Data at Discharge: WBC 14.20 thou/uL (4.3-10.9) H 05/08/24 07:20 Hgb 9.4 g/dL (13.6-17.9) L 05/08/24 07:20 Hct 29.7 % (39.6-49.0) L 05/08/24 07:20 Plt Count 435 thou/uL (152-406) H 05/08/24 07:20 PT 17.5 SECONDS (10-13.0) H 05/01/24 16:05 INR 1.57 05/01/24 16:05 APTT 32.3 SECONDS (27.2-37.4) 05/01/24 16:05 Sodium 135 mEq/L (136-145) L D 05/08/24 07:20 Potassium 4.2 mEq/L (3.5-5.1) 05/08/24 07:20 BUN 34 mg/dL (7-18) H 05/08/24 07:20 Creatinine 1.03 mg/dL (0.70-1.30) 05/08/24 07:20 Glucose 93 mg/dL (74-106) 05/08/24 07:20 Phosphorus 3.2 mg/dL (2.5-4.9) 05/08/24 07:20 Magnesium 2.6 mg/dL (1.6-2.4) H 05/08/24 07:20 Total Bilirubin 0.7 mg/dL (0.2-1.0) 05/01/24 16:05 AST 32 U/L (15-37) 05/01/24 16:05 ALT 26 U/L (16-61) 05/01/24 16:05 Alkaline Phosphatase 145 U/L (45-117) H 05/01/24 16:05 Home Medications: Amiodarone HCl [Cordarone*] 200 mg PO BID #60 tab 06/17/22 Bupropion *Xl* [Wellbutrin XL*] 150 mg PO DAILY 30 Days #30 tab 03/18/23 Alfuzosin HCl 10 mg PO DAILY 05/07/23 Atorvastatin Calcium [Lipitor] 40 mg PO BEDTIME 30 Days #30 tab 05/11/23 Hydrocodone Bit/Acetaminophen [[place] 7.5-325 Tablet] 1 tab PO BID 06/24/23 Pregabalin [Lyrica] 25 mg PO BID 06/24/23 Apixaban [Eliquis *] 2.5 mg PO BID 09/16/23 Furosemide 20 mg PO DAILY 09/16/23 Levocetirizine Dihydrochloride [Allergy Relief] 5 mg PO BEDTIME PRN 09/16/23 Midodrine HCl [Proamatine*] 5 mg PO BID PRN 09/16/23 Ondansetron [Zofran (Odt)*] 4 mg PO Q6H PRN 09/16/23 Zinc Gluconate [Zinc] 50 mg PO DAILY 09/16/23 predniSONE [Deltasone*] 10 mg PO M,W,F 09/16/23 Ensure High Protein 237 ml PO BID #30 can 03/03/24 Petrolatum,White [Petroleum Jelly] 1 cherie TP BID #368 g 03/04/24 Physician Discharge Instructions: Patient was admitted to the hospital for UTI, pneumonia. Blood culture showed no growth, urine culture returned with E. coli ESBL. Patient has a chronic indw elling Jeffers catheter which was recently replaced, he is scheduled to follow-up with urology in the next 1 to 2 weeks. He was seen by infectious disease who recommended continuing for total of 10 days on the Merrem/Invanz. A midline catheter has been placed and home health/physical therapy has been arranged for. Patient has continued to improve that his hospitalization he has been afebrile throughout the entire course. He is close to his baseline physical capability feeling ready to go home. Home medications should be continued as previously prescribed The antibiotic will be continued through 05/13/2024, after this midline catheter should be removed He will need to follow-up with Dr. Jimenes urology to evaluate the further need for indwelling Jeffers catheter You should follow-up also with your primary care doctor 1 to 2 weeks [facility] Continuing Laundry Aide: RAINER Aguilar. [phone]. Expect a call within 1-2 business days from discharge. Call with questions or concerns. Alternate: RAINER Gonzales [phone]. Activity: Fall precautions Followup: Taylor Muñoz MD [Primary Care Provider] - 1-2 Weeks Ottoniel Jimenes [ACTIVE - CAN ADMIT] - 1-2 Weeks Time spent managing pt's care (in minutes): 46
--- NOTE | 2024-05-08 14:57 | PN ---
Subjective: The patient is lying in bed. No new acute event. Being discharged today. Denies any o ther problems. Objective: Vital Signs: Reviewed. Lungs: Basal crackles. Heart: S1, S2. Regular. Abdomen: Soft, nontender. Bowel sounds present. Extremities: No edema. Laboratory Data: Shows WBC 14,000, hemoglobin 9.4, platelets 435. Chemistry shows BUN of 34, creati nine 1. Micro data: Urine culture is an E coli ESBL. Assessment And Plan: 1. Urosepsis secondary to Escherichia coli extended-spectrum beta-lactamase. 2. Pneumonitis. 3. Diabetes mellitus. 4. Moderate protein-calorie malnourishment. 5. Leukocytosis. 6. Anemia of chronic disease. Monitor signs of infection with WBC and fever trends. NF/MODL Voice ID: [id number] Report ID: [id number]
[2024-05-08 16:30] VITALS: BP 146/65; TEMP 97.9
== END 2024-05-08 16:27 | disposition home health service (06) | DRG 871 ==
LOC: ER 15:34 → ERHOLD 17:52 → UNDOADMIN 18:25 → ERHOLD 19:16 → 2ND 19:16
PROVIDERS: ADMIT Internal Medicine; ATTEND Hospitalist
DX: A41.9 Sepsis, unspecified organism (principal); J15.9 Unspecified bacterial pneumonia; N39.0 Urinary tract infection, site not specified; T83.518A Infection and inflammatory reaction due to other urinary catheter, initial encounter; J44.0 Chronic obstructive pulmonary disease with (acute) lower respiratory infection; I50.32 Chronic diastolic (congestive) heart failure; N17.9 Acute kidney failure, unspecified; Z16.12 Extended spectrum beta lactamase (ESBL) resistance; E44.0 Moderate protein-calorie malnutrition; I11.0 Hypertensive heart disease with heart failure; I48.91 Unspecified atrial fibrillation; I44.7 Left bundle-branch block, unspecified; D63.8 Anemia in other chronic diseases classified elsewhere; E11.9 Type 2 diabetes mellitus without complications; N40.0 Benign prostatic hyperplasia without lower urinary tract symptoms; B96.20 Unspecified Escherichia coli [E. coli] as the cause of diseases classified elsewhere; R65.20 Severe sepsis without septic shock; Z88.1 Allergy status to other antibiotic agents; Z88.8 Allergy status to other drugs, medicaments and biological substances; Z11.52 Encounter for screening for COVID-19; Z79.01 Long term (current) use of anticoagulants; Z79.52 Long term (current) use of systemic steroids; Z68.22 Body mass index [BMI] 22.0-22.9, adult; Z79.899 Other long term (current) drug therapy
CPT/HCPCS: 36415; 71045; 80048; 80053; 81001; 82947; 83605; 83735; 84100; 85025; 85610; 85730; 87040; 87077; 87086; 87088; 87186; 87428; 93005; 94640; 96365; 96367; 96368; 96375; 97110; 97161; 97530; 97542; 99285; J0696; J1335; J1650; J1815; J2185; J2919; J7030; J7050; J7512; J7613; J7614

== ENCOUNTER 2024-11-03 17:10 | Emergency (ER) | payer OTHER ==
[2024-11-03] MEDS ORDERED: NA CHLORIDE 0.9% 1,000 ML ONE (18:22)
[2024-11-03] MEDS ORDERED: FAMOTIDINE 20 MG/2 ML VIAL IV ONE (18:22)
[2024-11-03] MEDS ORDERED: ONDANSETRON 4 MG/2 ML VIAL ONE ×2 (18:22→19:08)
[2024-11-03 18:31] LABS: Absolute Lymphocytes (CBC) 1.3 K/uL (0.7-4.9); Hematocrit 32.6 % (39.6-49.0); Hemoglobin 10.7 g/dL (13.6-17.9); MCH 27.4 pg (27.0-35.0); MCHC 33.0 g/dL (32.0-36.0); MCV 83.1 fL (80-100); MPV 7.6 fL (7.6-11.3); Nucleated RBC Absolute Count 0.0 (0-0); Nucleated Red Blood Cells % 0.0 % (0-0); RBC Red Blood Cell Count 3.93 M/uL (4.33-5.43); White Blood Count 18.00 thou/uL (4.3-10.9)
[2024-11-03 18:42] LABS: PT Prothrombin Time 27.4 SECONDS (10-13.0); Protime INR 2.49
[2024-11-03 18:48] LABS: Influenza A Ag Negative; Influenza B Ag Negative; SARS-CoV-2 Antigen Rapid Res Negative (Negative)
[2024-11-03 18:52] LABS: Sqamous Epithelial <5 /HPF (None Seen); Urine Culture Reflex Order REFLEXED; Urine Microscopic Reflex YN ORDER UMIC; Urine WBC Clump Occasional /HPF (None Seen); Urine Yeast (Budding) Many /HPF (None Seen)
[2024-11-03 19:06] LABS: ALT/SGPT 238.0 U/L (16-61); AST/SGOT 609.0 U/L (15-37); Albumin 2.1 g/dL (3.4-5.0); Albumin/Globulin Ratio 0.5 (1.1-1.8); Alkaline Phosphatase 431.0 U/L (45-117); Anion Gap 17.7 mEq/L (5.0-15.0); BUN Blood Urea Nitrogen 64.0 mg/dL (7-18); Bilirubin Indirect, Calculated 0.5 mg/dL (0.2-0.8); Blood Morphology Comment NOT SEEN (NOT SEEN); Globulin 4.0 g/dL (2.3-3.5); Glucose Level 97.0 mg/dL (74-106); Lipase 448.0 U/L (13-75); Magnesium 2.2 mg/dL (1.6-2.4); NT PRO-BNP 4549.0 pg/mL (<450); Potassium 4.7 mEq/L (3.5-5.1); Troponin High Sensitivity 12.3 pg/mL (<58.9); White Blood Cell Scan OK (OK)
[2024-11-03] MEDS ORDERED: METOCLOPRAMIDE 10 MG/2mL INJ ONE (19:24)
[2024-11-03] MEDS ORDERED: CEFEPIME 2 GM VIAL ONE (19:24)
[2024-11-03] MEDS ORDERED: VANCOMYCIN 1 GM/VIAL ONE (19:25)
[2024-11-03] MEDS ORDERED: ALBUMIN HUMAN 25% 100 ML IV ONE (19:25)
[2024-11-03] MEDS ORDERED: NA CHLORIDE 0.9% 500 ML ONE (19:25)
[2024-11-03] MEDS ORDERED: NA CHLORIDE 0.9% 50 ML ONE (19:26)
[2024-11-03] MEDS ORDERED: NA CHLORIDE 0.9% 100 ML ONE (19:37)
--- NOTE | 2024-11-03 19:53 | ER ---
Nurse's Notes [facility] Name: Jose Marcelino Age: 74 yrs Sex: Male : 1950 Arrival Date: 11/03/2024 Time: 17:10 Bed 18 Private MD: Diagnosis: Acute on chronic renal failure, acute pancreatitis, acute hepatitis with transaminitis, hepatorenal failure, sepsis with septic shock;Severe sepsis with septic shock Presentation: 11/03 17:23 Chief complaint: EMS states: DROWSINESS AND NAUSEA. Coronavirus screen: At this time, iw the client does not indicate any symptoms associated with coronavirus-19. Ebola Screen: No symptoms or risks identified at this time. Initial Sepsis Screen: Does the patient meet any 2 criteria? No. Patient's initial sepsis screen is negative. Does the patient have a suspected source of infection? No. Patient's initial sepsis screen is negative. Risk Assessment: Do you want to hurt yourself or someone else? Patient reports no desire to harm self or others. Onset of symptoms is unknown. Care prior to arrival: IV initiated. 20 GA, in the right forearm, Glucose check: 97. 17:23 Method Of Arrival: EMS: [facility] iw 17:23 Acuity: [facility] 3 iw Triage Assessment: 17:24 General: Appears in no apparent distress. Behavior is calm, cooperative, appropriate iw for age. Pain: Denies pain. EENT: No deficits noted. Neuro: Level of Consciousness is awake, alert, obeys commands, Oriented to Appropriate for age. Cardiovascular: Rhythm is atrial fibrillation. Respiratory: No deficits noted. GI: Reports nausea, vomiting. : No signs and/or symptoms were reported regarding the genitourinary system. Derm: No deficits noted. Musculoskeletal: No deficits noted. Historical: - Allergies: 17:24 Amoxicillin; iw 17:24 Atrovent; iw 17:24 hydrochlorothiazide; iw 17:24 IPRATROPIUM AND DERIVATIVES; iw 17:24 limestone; iw - PMHx: 17:24 Asthma; Chronic obstructive lung disease; Congestive heart failure; Atrial iw fibrillation; Hypertensive disorder; diabetes mellitus; - Immunization history:: Adult Immunizations up to date. - Infectious Disease History:: Denies. - Social history:: Smoking status: unknown. - Family history:: not pertinent. Screenin:[facility] Fall Risk Assessment (Adult) History of falling in the last 3 months, bp including since admission No falls in past 3 months (0 pts) Confusion or Disorientation No (0 pts) Intoxicated or Sedated No (0 pts) Impaired Gait Yes (1 pt) Mobility Assist Device Used Yes (1 pt) Altered Elimination Yes (1 pt) Score/Fall Risk Level 3 or more points = High Risk Oriented to surroundings. Abuse screen: Denies threats or abuse. Denies injuries from another. Nutritional screening: No deficits noted. Tuberculosis screening: No symptoms or risk factors identified. Assessment: 17:30 General: SEE TRIAGE NOTE. bp 18:31 GI: Abdomen is non-distended. bp 19:10 General: Appears in no apparent distress. uncomfortable, Behavior is calm, cooperative. zm GI: Abdomen is distended, Bowel sounds hypoactive in right upper quadrant, left upper quadrant, right lower quadrant and left lower quadrant Abdomen is tender to palpation X 4 quads. Reports nausea, Pain is 9 out of 10 on a pain scale. vomiting. : Jeffers in place Urine is cloudy. 19:10 Neuro: Level of Consciousness is awake, alert, obeys commands, Oriented to person, zm place, time, situation. Cardiovascular: No deficits noted. Heart tones S1 S2 present Patient's skin is warm and dry. Respiratory: Airway is patent Respiratory effort is even, unlabored, Respiratory pattern is regular, symmetrical, Breath sounds are clear bilaterally. 21:52 Reassessment: called report to RAMON Montes at [facility]. zm 22:57 Reassessment: Patient appears in no apparent distress at this time. Patient and/or family updated on plan of care and expected duration. Pain level reassessed. Patient is alert, oriented x 3, equal unlabored respirations, skin warm/dry/pink. Patient denies pain at this time. Patient states symptoms have improved. 23:52 Reassessment: Patient appears in no apparent distress at this time. No changes from bm8 previously documented assessment. Patient and/or family updated on plan of care and expected duration. Pain level reassessed. Patient is alert, oriented x 3, equal unlabored respirations, skin warm/dry/pink. Vital Signs: 17:23 BP 110 / 46; Pulse 85; Resp 18; Pulse Ox 95% ; iw 18:30 BP 94 / 37; Pulse 70; Resp 20; Pulse Ox 96% on 2 lpm NC; bp 19:00 BP 111 / 84; Pulse 71; Resp 18; Pulse Ox 100% on 2 lpm NC; zm 20:51 BP 132 / 101; Pulse 77; Resp 17; Pulse Ox 97% on 2 lpm NC; zm 21:40 BP 97 / 80; Pulse 85; Resp 19; Temp 97.9; Pulse Ox 96% on 2 lpm NC; zm 23:52 BP 132 / 81; Pulse 73; Resp 17; Temp 97.9; Pulse Ox 98% ; Pain 0/10; bm8 23:52 Pain Scale: Adult bm8 Christie Coma Score: 19:00 Eye Response: spontaneous(4). Motor Response: obeys commands(6). Verbal Response: zm oriented(5). Total: 15. 19:44 Eye Response: spontaneous(4). Motor Response: obeys commands(6). Verbal Response: sp4 oriented(5). Total: 15. 20:51 Eye Response: spontaneous(4). Motor Response: obeys commands(6). Verbal Response: zm oriented(5). Total: 15. ED Course: 17:22 Patient arrived in ED. iw 17:24 Triage completed. iw 17:24 Arm band placed on. iw 17:26 Buffy Weiss RN is Primary Nurse. iw 17:26 Maintain EMS IV. Dressing intact. Good blood return noted. Site clean \T\ dry. Gauge \T\ iw site: 20 RFA. 17:30 Patient has correct armband on for positive identification. bp 17:32 Emeka Samson MD is Attending Physician. rodney 18:27 XRAY Chest (1 view) In Process Unspecified. EDMS 18:31 Initial lab(s) drawn, by la, sent to lab. bp 18:32 Primary Nurse role handed off by Buffy Weiss RN bp 18:32 Aayush Gonzalez RN is Primary Nurse. bp 19:07 Attending Physician role handed off by Emeka Samson MD sp4 19:07 Stanley Aguirre MD is Attending Physician. sp4 19:49 CT Chest Abdomen Pelvis W/O Contrast In Process Unspecified. EDMS 20:00 Inserted saline lock: 22 gauge in left antecubital area, using aseptic technique. zm Flushed with 10 mL NS. 20:33 initiated transfer with [facility] spoke with Yulisa. vk 21:04 Jeffers cath removed intact, balloon deflated. zm 21:04 Jeffers cath inserted, using sterile technique, 18 Fr., by la, balloon inflated, to zm gravity drainage, Patient tolerated well. 22:[address] [facility]. Accepting Dr. Gonzalez \T\ 2108. Admin Yulisa N \T\2108. Pt will km f go to room 1143. 23:51 Provided Education on: need for transfer. bm8 23:51 No provider procedures requiring assistance completed. Patient transferred, IV remains bm8 in place. Administered Medications: 18:00 Drug: NS 0.9% IV 500 ml 500 ml IV at 1 bolus once; to be given as a bolus over 30 bp minutes Volume: 500 ml; Route: IV; Rate: 1 bolus; Site: right forearm; 20:24 Follow up: Response: No adverse reaction; IV Status: Completed infusion zm 18:00 Drug: Ondansetron IVP 4 mg IVP once; over 2 minutes Route: IVP; Site: right forearm; bp 20:24 Follow up: Response: No adverse reaction zm 18:00 Drug: NS 0.9% IV 500 ml 500 ml IV at 100 ml/hr once; to be given as a bolus over 30 bp minutes Volume: 500 ml; Route: IV; Rate: 100 ml/hr; Site: right forearm; 20:24 Follow up: Response: No adverse reaction; IV Status: Completed infusion zm 18:00 Drug: Famotidine IVP 20 mg IVP once; dilute with 10 mL 0.9% NaCl; give over 2 minutes bp Route: IVP; Site: right forearm; 20:24 Follow up: Response: No adverse reaction zm 19:19 Drug: Ondansetron IVP 4 mg IVP once; over 2 minutes Route: IVP; Site: right forearm; zm 20:23 Follow up: Response: No adverse reaction zm 19:59 Drug: Cefepime IVPB 2 grams IVPB at 200 ml/hr once over 30 mins; (mix in NS 100 mL) zm Route: IVPB; Rate: 200 ml/hr; Infused Over: 30 mins; Site: right antecubital; 20:24 Follow up: Response: No adverse reaction; IV Status: Completed infusion zm 19:59 Drug: metoCLOPramide IVP 10 mg IVP once; over 1 to 2 minutes Route: IVP; Site: left zm antecubital; 20:23 Follow up: Response: No adverse reaction zm 20:23 Drug: Albumin IVPB 25 grams 100 ml IVPB once; (Note: Albumin 25% concentration) Volume: zm 100 ml; Route: IVPB; Site: left antecubital; 23:54 Follow up: Response: No adverse reaction; IV Status: Completed infusion bm8 20:23 Drug: vancoMYCIN IVPB 1.5 grams IVPB at calculated rate once Route: IVPB; Rate: zm calculated rate; Site: right antecubital; 23:54 Follow up: Response: No adverse reaction; IV Status: Completed infusion bm8 Medication: 20:52 VIS not applicable for this client. zm Outcome: 19:53 ER care complete, transfer ordered by . alley 23:51 Transferred by ground EMS to [facility], Transfer form completed. bm8 X-rays sent w/ patient. 23:51 Condition: stable 23:51 Instructed on the need for transfer, medication usage, Demonstrated understanding of instructions, follow-up care, medications, 23:53 Patient left the ED. bm8 Signatures: Dispatcher [employer] EDMS Emeka Samson MD MD cha Williams, Irene, RN Aayush Lambert RN RN bp Martinez, Zaina, RN RN zm Potepalov, Sergey, MD MD sp4 Forrester, Kelsey Maroul Aleyda Gallego Brad RN RN bm8 Corrections: (The following items were deleted from the chart) 20:34 20:33 initiated transfer with [facility] vk vk 21:41 21:40 BP 97 / 80; Pulse 85bpm; Resp 19bpm; Pulse Ox 96% 2 lpm Nasal Cannula; Temp zm 98.6F; zm
--- NOTE | 2024-11-03 19:54 | EDPHYS ---
Physician Documentation [facility] Name: Jose Marcelino Age: 74 yrs Sex: Male : 1950 Arrival Date: 11/03/2024 Time: 17:10 Bed 18 Private MD: ED Physician Stanley Aguirre HPI: 11/03 19:07 This 74 yrs old Other Race Male presents to ER via EMS with complaints of Nausea. sp4 19:37 CT report from - GASTROINTESTINAL TRACT: Segmental marked wall thickening, sp4 edema, and mucosal hyperenhancement involving the second and third parts of the duodenum with adjacent contrast stranding. No evidence of free air, significant intra-abdominal free fluid, bowel obstruction or abscess. APPENDIX: Normal appendix. LYMPH NODES: No lymphadenopathy. 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 No other acute osseous abnormality. ADDITIONAL FINDINGS: None. IMPRESSION: Segmental wall thickening and inflammatory changes of the second and third part of the duodenum, which could relate to infectious or inflammatory duodenitis, or duodeno-pancreatic groove pancreatitis. Otherwise improved inflammatory changes along the rest of the pancreatic tissues. Small cystic spaces within the pancreatic head and tail not exceeding 1.6 cm as above, could relate to intrapancreatic sequelae of infection. Marked gallbladder distention with cholelithiasis. Please correlate clinically for acute cholecystitis. Periportal edema more pronounced than on prior exam. Please correlate clinically for evidence of acute hepatitis or cholangitis. Mildly progressive patchy bibasilar airspace opacities, suggests mild or resolving airspace disease. . 19:40 74-year-old male presents with acute onset of nausea dizziness and vomited here in the sp4 ER. [facility]. Patient has history of acute cholecystitis diagnosed in 10/16/2024 . Patient was transferred to [facility] where he reportedly received cholecystectomy. Patient has postop abdominal incisions from what appears to be laparoscopic cholecystectomy. Patient denied abdominal pain. But reported feeling unwell nauseated. Also episode of hypotension on arrival. Additional history includes benign prostatic hyperplasia, hyperlipidemia, paroxysmal atrial fibrillation, COPD, essential hypertension, chronic pancreatitis, type 2 diabetes. Patient is full code. Patient's medications include Wellbutrin XL, apixaban 2.5 mg twice a day, Trelegy daily, tamsulosin 0.4 mg daily, atorvastatin 40 mg daily, sildenafil 20 mg daily, ondansetron 4 mg as needed, benzonatate as needed, acetaminophen as needed, albuterol as needed, pregabalin, furosemide, lisinopril daily, midodrine 5 mg daily. Historical: - Allergies: 17:24 Amoxicillin; iw 17:24 Atrovent; iw 17:24 hydrochlorothiazide; iw 17:24 IPRATROPIUM AND DERIVATIVES; iw 17:24 limestone; iw - PMHx: 17:24 Asthma; Chronic obstructive lung disease; Congestive heart failure; Atrial iw fibrillation; Hypertensive disorder; diabetes mellitus; - Immunization history:: Adult Immunizations up to date. - Infectious Disease History:: Denies. - Social history:: Smoking status: unknown. - Family history:: not pertinent. ROS: 19:44 Constitutional: Negative for fever, chills, and weight loss, positive for dizziness sp4 positive for nausea positive for generalized weakness 19:44 All other systems are negative, Exam: 19:44 Constitutional: Patient is elderly debilitated male, ill-appearing, but nontoxic. sp4 Postop abdominal incisions from recent laparoscopic cholecystectomy. Appears to have incontinence of bowel and bladder, chronic physical deconditioning. Indwelling Perez catheter Head/Face: Normocephalic, atraumatic. Eyes: Pupils equal round and reactive to light, extra-ocular motions intact. Lids and lashes normal. Conjunctiva and sclera are not injected. Cornea within normal limits. Periorbital areas with no swelling, redness, or edema. ENT: Nares patent. No nasal discharge, no septal abnormalities noted. Tympanic membranes are normal and external auditory canals are clear. Oropharynx with no redness, swelling, or masses, exudates, or evidence of obstruction, uvula midline. Mucous membranes moist. Neck: Trachea midline, no thyromegaly or masses palpated, and no cervical lymphadenopathy. Supple, full range of motion without nuchal rigidity, or vertebral point tenderness. Chest/axilla: Normal chest wall appearance and motion. Nontender with no deformity. No lesions are appreciated. Cardiovascular: Regular rate and rhythm with a normal S1 and S2. No gallops, murmurs, or rubs. No pulse deficits. Respiratory: Lungs have equal breath sounds bilaterally, clear to auscultation and percussion. No rales, rhonchi or wheezes noted. No increased work of breathing, no retractions or nasal flaring. Abdomen/GI: Soft, with normal bowel sounds. No distension or tympany. No guarding or rebound. No evidence of tenderness throughout. Back: No spinal tenderness. No costovertebral tenderness. Male : Normal genitalia with no discharge or lesions. Positive for indwelling Perez catheter incontinent of bowel and bladder Skin: Warm, dry with normal turgor. Pale in appearance, no rashes, no lesions, and no evidence of cellulitis. MS/ Extremity: Pulses equal, no cyanosis. Neurovascular intact. Full, normal range of motion. Neuro: Awake and alert, GCS 15, oriented to person, place, Cranial nerves II-XII grossly intact. Motor strength 5/5 in all extremities. Sensory grossly intact. Nonambulatory at this time. 19:44 ECG was reviewed by the Attending Physician. EKG 11/03/2024 1818 sinus rhythm with marked sinus arrhythmia first-degree AV block, sinus rhythm rate 77, left axis deviation, right bundle branch block, no ST elevation or depression, no ventricular ectopy. Muscle tremor artifact Vital Signs: 17:23 BP 110 / 46; Pulse 85; Resp 18; Pulse Ox 95% ; iw 18:30 BP 94 / 37; Pulse 70; Resp 20; Pulse Ox 96% on 2 lpm NC; bp 19:00 BP 111 / 84; Pulse 71; Resp 18; Pulse Ox 100% on 2 lpm NC; zm 20:51 BP 132 / 101; Pulse 77; Resp 17; Pulse Ox 97% on 2 lpm NC; zm 21:40 BP 97 / 80; Pulse 85; Resp 19; Temp 97.9; Pulse Ox 96% on 2 lpm NC; zm 23:52 BP 132 / 81; Pulse 73; Resp 17; Temp 97.9; Pulse Ox 98% ; Pain 0/10; bm8 23:52 Pain Scale: Adult bm8 Christie Coma Score: 19:00 Eye Response: spontaneous(4). Motor Response: obeys commands(6). Verbal Response: zm oriented(5). Total: 15. 19:44 Eye Response: spontaneous(4). Motor Response: obeys commands(6). Verbal Response: sp4 oriented(5). Total: 15. 20:51 Eye Response: spontaneous(4). Motor Response: obeys commands(6). Verbal Response: zm oriented(5). Total: 15. MDM: 17:32 Medical Screening Exam initiated rodney 20:25 ED course: FINDINGS: 9 mm right upper lobe nodule equivocally mildly enlarged. sp4 Calcified granuloma left lung. Partial resolution mild left lower lobe opacities. Mild to moderate COPD Coronary arterial calcifications. No mediastinal or hilar lymphadenopathy seen. No pleural effusion. No pericardial effusion. Cholecystectomy. No fluid within the gallbladder fossa. Mild inflammatory changes surrounding the second portion the duodenum and pancreatic head. Pancreatic duct dilatation and small pancreatic cystic lesions unchanged. Liver, spleen, adrenals and kidneys grossly normal Perez catheter within the bladder. Radiation seeds. Prostatic region There is no evidence of diverticulitis. Small bilateral hernias IMPRESSION: 9 mm right upper lobe nodule equivocally enlarged from June 2024. PET scan is recommended Stranding adjacent to the second portion of the duodenum and pancreatic head may all be the sequela of the recent gallbladder surgery. An acute pancreatitis can also result in this appearance and should be correlated with appropriate lab values. Stable small pancreatic cystic lesions. They are better seen on the previous enhanced CT scan. Please refer to that report for additional findings... 20:26 Differential diagnosis: Nonspecific abd pain, gastritis, cholecystitis, pancreatitis, sp4 diverticulitis, viral gastroenteritis, gastroenteritis. Data reviewed: vital signs, nurses notes, EMS record, old medical records, lab test result(s), EKG, radiologic studies, CT scan, plain films. ED course: Procedure: Chest Single View HISTORY: Cough COMPARISON: August 2025 FINDINGS: Left lower lobe opacities partially resolved.. Calcified granuloma left lung Patient's known right upper lobe nodule not well visualized on this exam. Please refer to the CT chest report on today's date for recommendation. Lungs are mildly to moderately hyperaerated. No significant pleural effusion. The heart is mildly enlarged . 20:30 Consideration of Admission/Observation Escalation of care including sp4 admission/observation considered. Management of patient was discussed with the following: Hospitalist: Admitting hospitalist at [facility]. Drafting Layout Man: Admitting surgeon at [facility] ED course: Sepsis reevaluation complete.. Full septic bolus 30 mL/kg cannot be administered secondary to signs of heart failure and volume overload. Patient has signs of sepsis, pancreatitis, hepatorenal failure. Patient warrants transfer to [facility] for continuity of care since his recent cholecystectomy was done on 10/16/2024.. Hemodynamically stable for transfer. Blood pressure improved. Patient was administered a total of 1000 mL normal saline fluid bolus. 11/03 17:33 Order name: Basic Metabolic Panel; Complete Time: 19:07 [facility] 11/03 17:33 Order name: CBC with Diff; Complete Time: 19:07 [facility] 11/03 17:33 Order name: LFT's; Complete Time: 19:07 [facility] 11/03 17:33 Order name: Magnesium; Complete Time: 19:07 [facility] 11/03 17:33 Order name: NT PRO-BNP; Complete Time: 19:07 [facility] 11/03 17:33 Order name: PT-INR; Complete Time: 19:07 [facility] 11/03 17:33 Order name: Troponin HS; Complete Time: 19:07 [facility] 11/03 17:33 Order name: Lipase; Complete Time: 19:07 [facility] 11/03 17:33 Order name: UA Rfx Claus Cult if indicated; Complete Time: 19:07 [facility] 11/03 17:34 Order name: Blood Culture Adult (2) [facility] 11/03 17:34 Order name: Lactate w/ 2H reflex if indic.; Complete Time: 19:07 [facility] 11/03 17:35 Order name: COVID-19 Ag + Flu A+B Ag; Complete Time: 19:07 [facility] 11/03 18:35 Order name: CBC Smear Scan; Complete Time: 19:07 [facility] 11/03 18:55 Order name: Urine Culture [facility] 11/03 17:33 Order name: XRAY Chest (1 view); Complete Time: 21:02 [facility] 11/03 19:13 Order name: CT Chest Abdomen Pelvis W/O Contrast; Complete Time: 21:02 sp4 11/03 17:33 Order name: Cardiac monitoring; Complete Time: 18:20 [facility] 11/03 17:33 Order name: EKG - Nurse/Tech; Complete Time: 18:20 [facility] 11/03 17:33 Order name: IV Saline Lock; Complete Time: 18:20 [facility] 11/03 17:33 Order name: Labs collected and sent; Complete Time: 18:20 [facility] 11/03 17:33 Order name: O2 Per Protocol; Complete Time: 18:20 [facility] 11/03 17:33 Order name: O2 Sat Monitoring; Complete Time: 18:20 [facility] 11/03 19:14 Order name: Perez: exchange perez Cath; Complete Time: 20:53 sp4 EC:18 Rate is 77 beats/min. Rhythm is regular, Sinus Rhythm. Left axis deviation noted. ID sp4 interval is prolonged. QRS interval is prolonged. QT interval is normal. No ST changes noted. Clinical impression: No evidence of ischemia. Interpreted by me. Reviewed by me. Administered Medications: 18:00 Drug: NS 0.9% IV 500 ml 500 ml IV at 1 bolus once; to be given as a bolus over 30 bp minutes Volume: 500 ml; Route: IV; Rate: 1 bolus; Site: right forearm; 20:24 Follow up: Response: No adverse reaction; IV Status: Completed infusion zm 18:00 Drug: Ondansetron IVP 4 mg IVP once; over 2 minutes Route: IVP; Site: right forearm; bp 20:24 Follow up: Response: No adverse reaction zm 18:00 Drug: NS 0.9% IV 500 ml 500 ml IV at 100 ml/hr once; to be given as a bolus over 30 bp minutes Volume: 500 ml; Route: IV; Rate: 100 ml/hr; Site: right forearm; 20:24 Follow up: Response: No adverse reaction; IV Status: Completed infusion zm 18:00 Drug: Famotidine IVP 20 mg IVP once; dilute with 10 mL 0.9% NaCl; give over 2 minutes bp Route: IVP; Site: right forearm; 20:24 Follow up: Response: No adverse reaction zm 19:19 Drug: Ondansetron IVP 4 mg IVP once; over 2 minutes Route: IVP; Site: right forearm; zm 20:23 Follow up: Response: No adverse reaction zm 19:59 Drug: Cefepime IVPB 2 grams IVPB at 200 ml/hr once over 30 mins; (mix in NS 100 mL) zm Route: IVPB; Rate: 200 ml/hr; Infused Over: 30 mins; Site: right antecubital; 20:24 Follow up: Response: No adverse reaction; IV Status: Completed infusion zm 19:59 Drug: metoCLOPramide IVP 10 mg IVP once; over 1 to 2 minutes Route: IVP; Site: left zm antecubital; 20:23 Follow up: Response: No adverse reaction zm 20:23 Drug: Albumin IVPB 25 grams 100 ml IVPB once; (Note: Albumin 25% concentration) Volume: zm 100 ml; Route: IVPB; Site: left antecubital; 23:54 Follow up: Response: No adverse reaction; IV Status: Completed infusion bm8 20:23 Drug: vancoMYCIN IVPB 1.5 grams IVPB at calculated rate once Route: IVPB; Rate: zm calculated rate; Site: right antecubital; 23:54 Follow up: Response: No adverse reaction; IV Status: Completed infusion bm8 Disposition: 20:31 Chart complete. sp4 Disposition Summary: 11/03/24 19:53 Transfer Ordered Notes: Transfer Location: [facility] sp4 Reason: Higher level of care sp4 Condition: Stable sp4 Problem: new sp4 Symptoms: have improved sp4 Accepting Physician: [facility]'s attending MD(11/03/24 23:53) bm8 Diagnosis - Acute on chronic renal failure, acute pancreatitis, acute hepatitis with sp4 transaminitis, hepatorenal failure, sepsis with septic shock - Severe sepsis with septic shock sp4 Forms: - Medication Reconciliation Form sp4 - SBAR form sp4 Critical care time excluding procedures: 20:31 Critical care time: Bedside Care: 36 minutes, Consultation: 12 minutes, Family sp4 Intervention: 12 minutes. Total time: 60 minutes Signatures: Dispatcher [employer] EDMS Emeka Samson MD MD cha Williams, Irene, RN Aayush Lambert RN Virginia Fitch RN RN zm Potepalov, Sergey, MD MD sp4 Maycol Serra RN RN bm8 Corrections: (The following items were deleted from the chart) 17:33 17:33 BASIC METABOLIC PANEL+C.LAB.BRZ ordered. EDMS EDMS 17:33 17:33 CBC+H.LAB.BRZ ordered. EDMS EDMS 17:33 17:33 HEPATIC FUNCTION+C.LAB.BRZ ordered. EDMS EDMS 17:33 17:33 MAGNESIUM+C.LAB.BRZ ordered. EDMS EDMS 17:33 17:33 PROBNP+C.LAB.BRZ ordered. EDMS EDMS 17:33 17:33 PROTIME (+INR)+COAG.LAB.BRZ ordered. EDMS EDMS 17:33 17:33 Troponin High Sensitivity+C.LAB.BRZ ordered. EDMS EDMS 17:33 17:33 LIPASE+C.LAB.BRZ ordered. EDMS EDMS 17:33 17:33 UA Rfx Claus Cult if indicated+U.LAB.BRZ ordered. EDMS EDMS 17:33 17:33 Chest Single View+RAD.RAD.BRZ ordered. EDMS EDMS 23:53 19:53 [facility]'s attending sp4 bm8
--- NOTE | 2024-11-03 20:15 | RAD REPORT ---
EXAM: CT CHEST, ABDOMEN AND PELVIS WITHOUT CONTRAST CLINICAL INDICATION: Chest and abdominal pain TECHNIQUE: CT chest, abdomen and pelvis was performed, without IV contrast, as per department protoco l. Axial, sagittal and coronal reconstructions were obtained. One or more of the following dose reduction techniques were used: Automated exposure control, adjustment of the mA and/or kV according to the patient size, and/or iterative reconstruction. Unless otherwise specified, incidental findings do not require dedicated imaging follow-up. The lack of IV and oral contrast limits evaluation of the mediastinum, casey, vessels, organs and lisa l. COMPARISON: June 2024 CT chest and October 16, 2024 CT abdomen FINDINGS: 9 mm right upper lobe nodule equivocally mildly enlarged. Calcified granuloma left lung. Partial resolution mild left lower lobe opacities. Mild to moderate COPD Coronary arterial calcifications. No mediastinal or hilar lymphadenopathy seen. No pleural effusion. No pericardial effusion. Cholecystectomy. No fluid within the gallbladder fossa. Mild inflammatory changes surrounding the sec ond portion the duodenum and pancreatic head. Pancreatic duct dilatation and small pancreatic cystic lesions unchanged. Liver, spleen, adrenals and kidneys grossly normal Jeffers catheter within the bladder. Radiation seeds. Prostatic region There is no evidence of diverticulitis. Small bilateral hernias IMPRESSION: 9 mm right upper lobe nodule equivocally enlarged from June 2024. PET scan is recommended Stranding adjacent to the second portion of the duodenum and pancreatic head may all be the sequela o f the recent gallbladder surgery. An acute pancreatitis can also result in this appearance and should be correlated with appropriate lab values. Stable small pancreatic cystic lesions. They are better seen on the previous enhanced CT scan. Please refer to that report for additional findings..
--- NOTE | 2024-11-03 20:19 | RAD REPORT ---
Procedure: Chest Single View HISTORY: Cough COMPARISON: August 2025 FINDINGS: Left lower lobe opacities partially resolved.. Calcified granuloma left lung Patient's known right upper lobe nodule not well visualized on this exam. Please refer to the CT ches t report on today's date for recommendation. Lungs are mildly to moderately hyperaerated. No significant pleural effusion. The heart is mildly enlarged
[2024-11-04 02:03] VITALS: TEMP 97.9
[2024-11-04 02:05] VITALS: BP 132/81; O2SAT 98
== END 2024-11-03 23:53 | disposition short-term general hospital (02) ==
LOC: ER 17:10
DX: E11.22 Type 2 diabetes mellitus with diabetic chronic kidney disease (principal); I13.0 Hypertensive heart and chronic kidney disease with heart failure and stage 1 through stage 4 chronic kidney disease, or unspecified chronic kidney disease; N18.9 Chronic kidney disease, unspecified; I50.9 Heart failure, unspecified; N17.9 Acute kidney failure, unspecified; R65.21 Severe sepsis with septic shock; K85.90 Acute pancreatitis without necrosis or infection, unspecified; B17.9 Acute viral hepatitis, unspecified; K76.7 Hepatorenal syndrome; R74.01 Elevation of levels of liver transaminase levels; J44.9 Chronic obstructive pulmonary disease, unspecified; Z11.52 Encounter for screening for COVID-19
CPT/HCPCS: 93005; 87040 ×2; 87088; 85025; 81001; 87086; 80048; 36415; 83735; 85610; 80076; 83605; 84484; 83690; 83880; 71250; 74176; 71045; 51702; 99285; 87428; J2765; J3370; J0692; J2405 ×2; P9047; J7040; J7030; J3373